=== PATIENT | female | born 1965 | race Caucasian/White ===

== ENCOUNTER 2017-02-25 11:59 | Inpatient (IN) | payer BC, MEDICARE ==
--- NOTE | 2017-02-25 12:51 | ED ---
Abdominal Pain HPI <German Haddad - Last Filed: 02/25/17 14:18> - General Source: patient Mode of arrival: ambulatory Limitations: no limitations - History of Present Illness MD Complaint: abdominal pain -: week(s) (2) Location: RUQ, epigastric Radiation: back Improves With: medication (Zofran) Worsens With: eating Associated Symptoms: nausea, vomiting, diarrhea, fever <Linda Dickson - Last Filed: 02/25/17 16:15> - General Chief Complaint: Abdominal Pain Stated Complaint: abdominal pain,nausea - History of Present Illness Initial Comments: 52-year-old female complains of epigastric and right upper quadrant abdominal pain for the last 2 weeks. Patient states it comes and goes and shoots through pressure to her back region as well. Patient was seen 2 weeks ago when she had some nausea vomiting in a fever and was told she had Jeep gastroenteritis. Patient states she's had nausea on and off and decreased appetite. Patient is not having any symptoms at the time of visit however she did have to take a Zofran earlier due to nausea. Patient only had water to drink today. Patient denies any recent fevers no change of bowels except for today did have some loose stools. Patient denies any increase in belching or flatulence. No abdominal surgical history status post section. No dysuria (Linda Dickson) - Related Data Home Medications Medication Instructions Recorded Confirmed Albuterol Sulfate [Proair Hfa] 2 puff INHALATION RT-Q4H PRN 02/25/17 02/25/17 Beclomethasone Dipropionate [Qvar 1 puff INHALATION RT-BID 02/25/17 02/25/17 80 mcg] Citalopram Hydrobromide [CeleXA] 40 mg PO DAILY 02/25/17 02/25/17 Gabapentin 600 mg PO TID 02/25/17 02/25/17 Insulin Aspart Protam & Aspart 25 unit SQ AC-SUPPER 02/25/17 02/25/17 [NovoLOG MIX 70-30 Flexpen] Insulin Aspart Protam & Aspart 35 unit SQ AC-BRKFST 02/25/17 02/25/17 [NovoLOG MIX 70-30 Flexpen] Lisinopril-Hctz 20-25 mg 1 tab PO DAILY 08/19/17 08/19/17 [Zestoretic 20-25] Metoprolol Tartrate [Lopressor] 100 mg PO BID-W/MEALS 02/25/17 02/25/17 Ranitidine HCl [Zantac] 150 mg PO BID 02/25/17 02/25/17 amLODIPine [Norvasc] 10 mg PO DAILY 02/25/17 02/25/17 Allergies Allergy/AdvReac Type Severity Reaction Status Date / Time Penicillins Allergy Rash/Hives Verified 02/25/17 12:35 Sulfa (Sulfonamide Allergy Anaphylaxis Verified 02/25/17 12:35 Antibiotics) MMR vaccine Allergy Rash/Hives Uncoded 02/25/17 12:07 Review of Systems ROS Other: All systems not noted in ROS Statement are negative. <German Haddad - Last Filed: 02/25/17 14:18> ROS Other: All systems not noted in ROS Statement are negative. Cardiovascular: Denies: chest pain, dyspnea on exertion, orthopnea, edema, syncope Gastrointestinal: Reports: abdominal pain, nausea, vomiting <Linda Dickson - Last Filed: 02/25/17 16:15> ROS Statement: Those systems with pertinent positive or pertinent negative responses have been documented in the HPI. Past Medical History Past Medical History: COPD, Diabetes Mellitus, Hypertension History of Any Multi-Drug Resistant Organisms: None Reported Past Surgical History: Section Additional Past Surgical History / Comment(s): left eye Past Psychological History: Anxiety Smoking Status: Never smoker Past Alcohol Use History: None Reported Past Drug Use History: None Reported <Linda Dickson - Last Filed: 02/25/17 16:15> General Exam Limitations: no limitations General appearance: alert, in no apparent distress, obese Eye exam: Present: normal appearance, PERRL, EOMI. Absent: scleral icterus, conjunctival injection, periorbital swelling ENT exam: Present: normal exam, mucous membranes moist Neck exam: Present: normal inspection. Absent: tenderness, meningismus, lymphadenopathy Respiratory exam: Present: normal lung sounds bilaterally. Absent: respiratory distress, wheezes, rales, rhonchi, stridor Cardiovascular Exam: Present: regular rate, normal rhythm, normal heart sounds. Absent: systolic murmur, diastolic murmur, rubs, gallop, clicks GI/Abdominal exam: Present: soft, tenderness (Right upper quadrant and epigastric region mild), normal bowel sounds. Absent: distended, guarding, rebound, rigid Back exam: Present: normal inspection Neurological exam: Present: alert, oriented X3, CN II-XII intact Psychiatric exam: Present: normal affect, normal mood Skin exam: Present: warm, dry, intact <Linda Dickson - Last Filed: 02/25/17 16:15> Course <German Haddad - Last Filed: 02/25/17 14:18> <Linda Dickson - Last Filed: 02/25/17 16:15> Vital Signs 02/25/17 02/25/17 02/25/17 12:00 13:06 14:00 Temperature 98.8 F Pulse Rate 87 72 73 Respiratory 16 18 16 Rate Blood Pressure 195/91 168/80 168/80 O2 Sat by Pulse 97 96 94 L Oximetry 02/25/17 02/25/17 14:57 16:00 Temperature 98.0 F Pulse Rate 67 65 Respiratory 18 18 Rate Blood Pressure 179/79 152/69 O2 Sat by Pulse 96 95 Oximetry - Reevaluation(s) Reevaluation #1: 02/25/17 14:18 I did personally do a [id number] examination the patient and did discuss the findings with her she does demonstrate evidence of acute pancreatitis. She denies any alcohol consumption any recent medications. Patient still has some nausea some of bowel pain. She will be admitted I did did discuss case with the hospitalist. (German Haddad) Medical Decision Making - Lab Data Result diagrams: 02/25/17 13:04 02/25/17 13:04 <German Haddad - Last Filed: 02/25/17 14:18> - Lab Data Result diagrams: 02/25/17 13:04 02/25/17 13:04 <Linda Dickson - Last Filed: 02/25/17 16:15> - Medical Decision Making After reviewing her labs along with Dr. Haddad patient has acute pancreatitis we' ll be admitting to Dr. MAGAÑA. Patient understands the plan and care and agrees with the clinic at this time. Patient will be kept nothing by mouth. (Linda Dickson) - Lab Data Lab Results 02/25/17 02/25/17 02/25/17 Range/Units 13:04 13:04 13:04 WBC 9.0 (3.8-10.6) k/uL RBC 4.32 (3.80-5.40) m/uL Hgb 12.8 (11.4-16.0) gm/dL Hct 37.7 (34.0-46.0) % MCV 87.3 (80.0-100.0) fL MCH 29.7 (25.0-35.0) pg MCHC 34.0 (31.0-37.0) g/dL RDW 13.6 (11.5-15.5) % Plt Count 277 (150-450) k/uL Neutrophils % 79 % Lymphocytes % 9 % Monocytes % 4 % Eosinophils % 6 % Basophils % 0 % Neutrophils # 7.1 (1.3-7.7) k/uL Lymphocytes # 0.8 L (1.0-4.8) k/uL Monocytes # 0.4 (0-1.0) k/uL Eosinophils # 0.6 (0-0.7) k/uL Basophils # 0.0 (0-0.2) k/uL Sodium 140 (137-145) mmol/L Potassium 4.2 (3.5-5.1) mmol/L Chloride 101 (98-107) mmol/L Carbon Dioxide 27 (22-30) mmol/L Anion Gap 12 mmol/L BUN 31 H (7-17) mg/dL Creatinine 1.71 H (0.52-1.04) mg/dL Est GFR (MDRD) Af Amer 38 (>60 ml/min/1.73 sqM) Est GFR (MDRD) Non-Af 31 (>60 ml/min/1.73 sqM) Glucose 212 H (74-99) mg/dL Calcium 9.4 (8.4-10.2) mg/dL Total Bilirubin 0.4 (0.2-1.3) mg/dL AST 13 L (14-36) U/L ALT 23 (9-52) U/L Alkaline Phosphatase 77 (38-126) U/L Total Creatine Kinase 32 (30-135) U/L CK-MB (CK-2) 0.6 (0.0-2.4) ng/mL CK-MB (CK-2) Rel Index 1.9 Total Protein 7.4 (6.3-8.2) g/dL Albumin 4.1 (3.5-5.0) g/dL Amylase 176 H (30-110) U/L Lipase 1219 H (23-300) U/L Urine Color Urine Appearance (Clear) Urine pH (5.0-8.0) Ur Specific [place] (1.001-1.035) Urine Protein (Negative) Urine Glucose (UA) (Negative) Urine Ketones (Negative) Urine Blood (Negative) Urine Nitrite (Negative) Urine Bilirubin (Negative) Urine Urobilinogen (<2.0) mg/dL Ur Leukocyte Esterase (Negative) Urine RBC (0-5) /hpf Urine WBC (0-5) /hpf Ur Squamous Epith Cells (0-4) /hpf Urine Mucus (None) /hpf 02/25/17 Range/Units 14:46 WBC (3.8-10.6) k/uL RBC (3.80-5.40) m/uL Hgb (11.4-16.0) gm/dL Hct (34.0-46.0) % MCV (80.0-100.0) fL MCH (25.0-35.0) pg MCHC (31.0-37.0) g/dL RDW (11.5-15.5) % Plt Count (150-450) k/uL Neutrophils % % Lymphocytes % % Monocytes % % Eosinophils % % Basophils % % Neutrophils # (1.3-7.7) k/uL Lymphocytes # (1.0-4.8) k/uL Monocytes # (0-1.0) k/uL Eosinophils # (0-0.7) k/uL Basophils # (0-0.2) k/uL Sodium (137-145) mmol/L Potassium (3.5-5.1) mmol/L Chloride (98-107) mmol/L Carbon Dioxide (22-30) mmol/L Anion Gap mmol/L BUN (7-17) mg/dL Creatinine (0.52-1.04) mg/dL Est GFR (MDRD) Af Amer (>60 ml/min/1.73 sqM) Est GFR (MDRD) Non-Af (>60 ml/min/1.73 sqM) Glucose (74-99) mg/dL Calcium (8.4-10.2) mg/dL Total Bilirubin (0.2-1.3) mg/dL AST (14-36) U/L ALT (9-52) U/L Alkaline Phosphatase (38-126) U/L Total Creatine Kinase (30-135) U/L CK-MB (CK-2) (0.0-2.4) ng/mL CK-MB (CK-2) Rel Index Total Protein (6.3-8.2) g/dL Albumin (3.5-5.0) g/dL Amylase (30-110) U/L Lipase (23-300) U/L Urine Color Yellow Urine Appearance Clear (Clear) Urine pH 6.5 (5.0-8.0) Ur Specific [place] 1.012 (1.001-1.035) Urine Protein 3+ H (Negative) Urine Glucose (UA) 2+ H (Negative) Urine Ketones Negative (Negative) Urine Blood Trace H (Negative) Urine Nitrite Negative (Negative) Urine Bilirubin Negative (Negative) Urine Urobilinogen <2.0 (<2.0) mg/dL Ur Leukocyte Esterase Negative (Negative) Urine RBC 1 (0-5) /hpf Urine WBC 1 (0-5) /hpf Ur Squamous Epith Cells 1 (0-4) /hpf Urine Mucus Rare H (None) /hpf Disposition Decision Time: 14:15 <German Haddad - Last Filed: 02/25/17 14:18> <Linda Dickson - Last Filed: 02/25/17 16:15> Clinical Impression: Acute pancreatitis, Acute renal failure Disposition: ADMITTED IP TO THIS HOSP Condition: Stable Referrals: Susan Galarza MD [Primary Care Provider] - 1-2 days
[2017-02-25 13:20] LABS: Basophils % (A) 0 %; CH 30.4; Eosinophils # (A) 0.6 k/uL (0-0.7); Eosinophils % (A) 6 %; HCT 37.7 % (34.0-46.0); HDW 2.58; HGB 12.8 gm/dL (11.4-16.0); Luc # (Auto) 0.08; Luc % (Auto) 1; Lymphocytes # (A) 0.8 k/uL (1.0-4.8); Lymphocytes % (A) 9 %; MCH 29.7 pg (25.0-35.0); MCV 87.3 fL (80.0-100.0); Monocytes # (A) 0.4 k/uL (0-1.0); Monocytes % (A) 4 %; Neutrophils # (A) 7.1 k/uL (1.3-7.7); Neutrophils % (A) 79 %; RBC 4.32 m/uL (3.80-5.40); RDW 13.6 % (11.5-15.5); WBC (Perox) 9.23
[2017-02-25 13:38] LABS: Calcium 9.4 mg/dL (8.4-10.2); Potassium 4.2 mmol/L (3.5-5.1); Total Bilirubin 0.4 mg/dL (0.2-1.3); Total Protein 7.4 g/dL (6.3-8.2)
[2017-02-25 13:52] LABS: Creatine Kinase MB 0.6 ng/mL (0.0-2.4)
--- NOTE | 2017-02-25 13:58 | US ---
EXAMINATION TYPE: US abdomen limited DATE OF EXAM: 02/25/2017 COMPARISON: NONE CLINICAL HISTORY: Pain. RUQ pain and nausea EXAM MEASUREMENTS: Liver Length: 17.9 cm Gallbladder Wall: 0.20 cm CBD: 0.78 cm Right Kidney: 11.5 x 4.7 x 4.8 cm Pancreas: Tail obscured by overlying bowel gas Liver: wnl Gallbladder: wnl CBD: upper limits Right Kidney: Two hypoechoic areas visualized mid pole 1 = 1.6 x 1.9 x 1.8cm 2 = 1.9 x 2.3 x 1.6 cm l Two hypoechoic areas right kidney mid pole. CBD measuring upper limits. IMPRESSION: Common bile duct is large but the intrahepatic bile ducts are not dilated. No gallstones. Right renal cortical cysts.
--- NOTE | 2017-02-25 13:59 | US ---
EXAMINATION TYPE: US duplex aorta DATE OF EXAM: 02/25/2017 COMPARISON: NONE CLINICAL HISTORY: Pain. RUQ pain EXAM MEASUREMENTS: Abdominal Aorta: Proximal: 1.7 x 2.0 x 2.4 cm Mid: 1.8 x 1.8 x 1.5 cm Distal: 1.6 x 1.7 x 1.3 cm Bifurcation: 1.6cm 1.4 cm No evidence of AAA noted IMPRESSION: Negative exam. No evidence of abdominal aortic aneurysm.
[2017-02-25] MEDS: SODIUM CHLORIDE 0.9% 1,000 ML IV SCH ×2 (14:44→23:54)
[2017-02-25 15:08] LABS: Appearance,Urine Clear (Clear); Bilirubin,Urine Negative (Negative); Glucose,Urine (UA) 2+ (Negative); Ketones,Urine Negative (Negative); Leukocyte Esterase,Urine Negative (Negative); Mucus,Urine Rare /hpf; Nitrite,Urine Negative (Negative); PH, Urine 6.5 (5.0-8.0); Particle Count 2810; Protein,Urine 3+ (Negative); RBC,Urine 1 /hpf (0-5); Specific Gravity,Urine 1.012 (1.001-1.035); Squamous Epithelial Cell,Urine 1 /hpf (0-4); UA Billing (MACRO vs. MICRO) MICRO; Urobilinogen,Urine <2.0 mg/dL (<2.0); WBC,Urine 1 /hpf (0-5)
[2017-02-25] MEDS ORDERED: NALOXONE 0.4 MG/ML 1 ML VIAL IV PRN (15:55)
[2017-02-25] MEDS ORDERED: ONDANSETRON 4 MG/2 ML VIAL IVP PRN (15:55)
[2017-02-25] MEDS ORDERED: HYDROmorphone 1 MG/ML 1 ML SYRINGE IVP STA (16:02)
[2017-02-25 17:14] LABS: Glucose,Whole Blood 92 mg/dL (75-99)
[2017-02-25] MEDS: INSULIN LISPRO (humaLOG) 300 UNIT/3 ML VIAL SQ SCH ×2 (17:45→21:28)
[2017-02-25] MEDS ORDERED: ALPRAZolam 0.5 MG TAB PO PRN (18:45)
[2017-02-25] MEDS: ALBUTEROL NEBULIZED 2.5 MG/3 ML INHALATION PRN (20:51)
[2017-02-25] MEDS: BUDESONIDE 0.5 MG/2 ML NEBU INHALATION SCH (20:51)
[2017-02-25 21:23] LABS: Glucose,Whole Blood 95 mg/dL (75-99)
[2017-02-25] MEDS: GABAPENTIN 300 MG CAP PO SCH (21:32)
[2017-02-25] MEDS: HYDROmorphone 1 MG/ML 1 ML SYRINGE IV PRN (21:33)
[2017-02-26 02:16] LABS: Glucose,Whole Blood 109 mg/dL (75-99)
[2017-02-26] MEDS: HYDROmorphone 1 MG/ML 1 ML SYRINGE IV PRN ×3 (02:17→20:08)
[2017-02-26] MEDS: SODIUM CHLORIDE 0.9% 1,000 ML IV SCH ×2 (06:16→17:13)
[2017-02-26 07:42] LABS: Glucose,Whole Blood 107 mg/dL (75-99)
[2017-02-26] MEDS: GABAPENTIN 300 MG CAP PO SCH ×3 (07:52→22:08)
[2017-02-26] MEDS: METOPROLOL TARTRATE 50 MG TAB PO SCH ×2 (07:52→17:12)
[2017-02-26] MEDS: amLODIPine 10 MG TAB PO SCH (07:53)
[2017-02-26] MEDS: CITALOPRAM HYDROBROMIDE 20 MG TAB PO SCH (07:53)
[2017-02-26] MEDS: INSULN ASP PRT/INSULIN ASPART 100 UNIT/ML 10 ML VIAL SQ SCH (07:54)
[2017-02-26] MEDS: INSULIN LISPRO (humaLOG) 300 UNIT/3 ML VIAL SQ SCH ×4 (07:54→22:07)
[2017-02-26] MEDS: ALBUTEROL NEBULIZED 2.5 MG/3 ML INHALATION PRN ×2 (08:20→19:43)
[2017-02-26] MEDS: BUDESONIDE 0.5 MG/2 ML NEBU INHALATION SCH ×2 (08:20→19:43)
[2017-02-26 08:47] LABS: Calcium 8.9 mg/dL (8.4-10.2); Potassium 4.6 mmol/L (3.5-5.1); Total Bilirubin 0.3 mg/dL (0.2-1.3); Total Protein 6.9 g/dL (6.3-8.2)
[2017-02-26 11:05] LABS: Hemoglobin A1C 7.4 % (4.2-6.1)
[2017-02-26 12:36] LABS: Glucose,Whole Blood 125 mg/dL (75-99)
[2017-02-26 17:12] LABS: Glucose,Whole Blood 147 mg/dL (75-99)
[2017-02-26] MEDS ORDERED: INSULN ASP PRT/INSULIN ASPART 100 UNIT/ML 10 ML VIAL SQ SCH (17:30)
[2017-02-26 21:28] LABS: Glucose,Whole Blood 131 mg/dL (75-99)
--- NOTE | 2017-02-26 21:58 | P.HPIM ---
History of Present Illness H&P Date: 02/26/17 Chief Complaint: Abdominal pain 52-year-old female with a past medical history of hypertension and diabetes mellitus type 2 admitted to hospital with complains of epigastric and right upper quadrant abdominal pain for the last 2 weeks. Patient states it comes and goes and shoots through pressure to her back region as well. Patient was seen 2 weeks ago when she had some nausea vomiting in a fever and was told she had acute gastroenteritis. Patient is having worsening symptoms. Patient only had water to drink today. Patient denied any fever or chills. Patient denies any increase in belching or flatulence. No abdominal surgical history status post section. Patient denied any hematuria or dysuria. Patient had elevated lipase level at 1219 and elevated amylase level. ABDOMEN showed no redness of AAA. Right upper quadrant ultrasound showed dilated common bile duct with no evidence of dilation and intrahepatic bile ducts. No gallstones noted. Patient denied any history of alcohol abuse. Liver enzymes are not elevated. BUN 32 and a creatinine 1.81 Review of Systems CONSTITUTIONAL: No fever, no malaise, no fatigue. HEENT: No recent visual problems or hearing problems. Denied any sore throat. CARDIOVASCULAR: No chest pain, orthopnea, PND, no palpitations, no syncope. PULMONARY: , no hemoptysis. GASTROINTESTINAL: Patient does have nausea. No episodes of vomiting. One episode of diarrhea and right upper quadrant abdominal pain NEUROLOGICAL: No headaches, no weakness, no numbness. HEMATOLOGICAL: Denies any bleeding or petechiae. GENITOURINARY: Denies any burning micturition, frequency, or urgency. MUSCULOSKELETAL/RHEUMATOLOGICAL: Denies any joint pain, swelling, or any muscle pain. ENDOCRINE: Denies any polyuria or polydipsia. The rest of the 14-point review of systems is negative. Past Medical History Past Medical History: Asthma, Diabetes Mellitus, Hypertension Additional Past Medical History / Comment(s): diabetic retinopathy History of Any Multi-Drug Resistant Organisms: None Reported Past Surgical History: Section, Uterine Ablation Additional Past Surgical History / Comment(s): left eye artificial lens Past Psychological History: Anxiety Smoking Status: Never smoker Past Alcohol Use History: None Reported Past Drug Use History: None Reported Medications and Allergies Home Medications Medication Instructions Recorded Confirmed Type Albuterol Sulfate [Proair Hfa] 2 puff INHALATION RT-Q4H PRN 02/25/17 02/25/17 History Beclomethasone Dipropionate [Qvar 1 puff INHALATION RT-BID 02/25/17 02/25/17 History 80 mcg] Citalopram Hydrobromide [CeleXA] 40 mg PO DAILY 02/25/17 02/25/17 History Gabapentin 600 mg PO TID 02/25/17 02/25/17 History Insulin Aspart Protam & Aspart 25 unit SQ AC-SUPPER 02/25/17 02/25/17 History [NovoLOG MIX 70-30 Flexpen] Insulin Aspart Protam & Aspart 35 unit SQ AC-BRKFST 02/25/17 02/25/17 History [NovoLOG MIX 70-30 Flexpen] Lisinopril-Hctz 20-25 mg 1 tab PO DAILY 02/25/17 02/25/17 History [Zestoretic 20-25] Metoprolol Tartrate [Lopressor] 100 mg PO BID-W/MEALS 02/25/17 02/25/17 History Ranitidine HCl [Zantac] 150 mg PO BID 02/25/17 02/25/17 History amLODIPine [Norvasc] 10 mg PO DAILY 02/25/17 02/25/17 History Allergies Allergy/AdvReac Type Severity Reaction Status Date / Time Penicillins Allergy Rash/Hives Verified 02/25/17 12:35 Sulfa (Sulfonamide Allergy Anaphylaxis Verified 02/25/17 12:35 Antibiotics) MMR vaccine Allergy Rash/Hives Uncoded 02/25/17 12:07 Physical Exam Vitals: Vital Signs Temp Pulse Pulse Resp BP BP Pulse Ox 02/26/17 08:30 76 02/26/17 08:20 80 02/26/17 07:00 98.1 F 86 16 186/86 92 L 02/25/17 23:00 97.4 F L 71 16 132/75 93 L 02/25/17 21:01 68 02/25/17 20:54 68 02/25/17 16:00 98.0 F 65 18 152/69 95 02/25/17 14:57 67 18 179/79 96 02/25/17 14:00 73 16 168/80 94 L Intake and Output 02/25/17 02/26/17 02/26/17 22:59 06:59 14:59 Other: # Voids 1 2 PHYSICAL EXAMINATION: Patient is lying in the bed comfortably, no acute distress, awake alert and oriented.. Morbidly obese HEENT: Normocephalic. Neck is supple. Pupils reactive. Nostrils clear. Oral cavity is moist. Ears reveal no drainage. Neck reveals no JVD, carotid bruits, or thyromegaly. CHEST EXAMINATION: Trachea is central. Symmetrical expansion. Lung li clear to auscultation and percussion. CARDIAC: Normal S1, S2 with no gallops. No murmurs ABDOMEN: Soft. Bowel sounds normal. No organomegaly. No abdominal bruits. Patient does have a right upper quadrant and epigastric mild tenderness. Extremities reveal no edema. No clubbing or cyanosis Neurologically awake, alert, oriented x3 with well-coordinated movements. Skin: no rash or skin lesions Musculoskeletal: no joint swelling or deformity. Results CBC & Chem 7: 02/25/17 13:04 02/26/17 07:30 Labs: Abnormal Lab Results - Last 24 Hours (Table) 02/25/17 02/25/17 02/26/17 Range/Units 13:04 14:46 02:13 BUN (7-17) mg/dL Creatinine (0.52-1.04) mg/dL Glucose (74-99) mg/dL POC Glucose (mg/dL) 109 H (75-99) mg/dL Hemoglobin A1c 7.4 H (4.2-6.1) % AST (14-36) U/L Urine Protein 3+ H (Negative) Urine Glucose (UA) 2+ H (Negative) Urine Blood Trace H (Negative) Urine Mucus Rare H (None) /hpf 02/26/17 02/26/17 02/26/17 Range/Units 07:30 07:38 12:32 BUN 32 H (7-17) mg/dL Creatinine 1.81 H (0.52-1.04) mg/dL Glucose 108 H (74-99) mg/dL POC Glucose (mg/dL) 107 H 125 H (75-99) mg/dL Hemoglobin A1c (4.2-6.1) % AST 13 L (14-36) U/L Urine Protein (Negative) Urine Glucose (UA) (Negative) Urine Blood (Negative) Urine Mucus (None) /hpf Thrombosis Risk Factor Assmnt - DVT/VTE Prophylaxis DVT/VTE Prophylaxis: Pharmacologic Prophylaxis ordered - Choose All That Apply Each Factor Represents 1 point: Age 41-60 years, Obesity (BMI >25) Thrombosis Risk Factor Assessment Total Risk Factor Score: 2 Thrombosis Risk Factor Assessment Level: Low Risk Assessment and Plan Plan: #1 abdominal pain secondary to acute pancreatitis. Etiology unknown #2 dilated bile duct with no evidence of stones #3 diabetes mellitus with his HbA1c of 7.4 #4 acute kidney injury most likely prerenal #5 hypertension #6 asthma #7 morbid obesity with BMI 43.4 DVT prophylaxis Plan: Patient will be continued on IV hydration and GI was consulted for dilated common bile duct. Continue with the pain management and nothing by mouth. Continue the home medications and insulin dosing. We will follow closely and further recommendations based on the clinical course
--- NOTE | 2017-02-26 23:55 | P.CONS ---
History of Present Illness - Reason for Consult Consult date: 02/26/17 - History of Present Illness The patient is a 52-year-old female with a past medical history of hypertension and diabetes mellitus type 2 was admitted to hospital through the emergency room with complaints of epigastric and right upper quadrant abdominal pain of 2 weeks duration. The pain apparently was intermittent at times radiating to her back. For several days prior to admission she was having fevers and nausea then the day of her presentation to the emergency room she was having worsening nausea and vomiting. The patient had elevated lipase level at 1219 and elevated amylase level at 176. Liver enzymes were not elevated. Right upper quadrant ultrasound showed dilated common bile duct with no evidence of dilation and intrahepatic bile ducts. No gallstones noted. No history of a cold consumption or other possible underlying causes for pancreatitis. The patient had significant improvement since admission. Review of Systems 14 point review of system is, otherwise, negative except as detailed in the present illness above. Past Medical History Past Medical History: Asthma, Diabetes Mellitus, Hypertension Additional Past Medical History / Comment(s): diabetic retinopathy History of Any Multi-Drug Resistant Organisms: None Reported Past Surgical History: Section, Uterine Ablation Additional Past Surgical History / Comment(s): left eye artificial lens Past Psychological History: Anxiety Smoking Status: Never smoker Past Alcohol Use History: None Reported Past Drug Use History: None Reported Medications and Allergies Home Medications Medication Instructions Recorded Confirmed Type Albuterol Sulfate [Proair Hfa] 2 puff INHALATION RT-Q4H PRN 02/25/17 02/25/17 History Beclomethasone Dipropionate [Qvar 1 puff INHALATION RT-BID 02/25/17 02/25/17 History 80 mcg] Citalopram Hydrobromide [CeleXA] 40 mg PO DAILY 02/25/17 02/25/17 History Gabapentin 600 mg PO TID 02/25/17 02/25/17 History Insulin Aspart Protam & Aspart 25 unit SQ AC-SUPPER 02/25/17 02/25/17 History [NovoLOG MIX 70-30 Flexpen] Insulin Aspart Protam & Aspart 35 unit SQ AC-BRKFST 02/25/17 02/25/17 History [NovoLOG MIX 70-30 Flexpen] Lisinopril-Hctz 20-25 mg 1 tab PO DAILY 02/25/17 02/25/17 History [Zestoretic 20-25] Metoprolol Tartrate [Lopressor] 100 mg PO BID-W/MEALS 02/25/17 02/25/17 History Ranitidine HCl [Zantac] 150 mg PO BID 02/25/17 02/25/17 History amLODIPine [Norvasc] 10 mg PO DAILY 02/25/17 02/25/17 History Allergies Allergy/AdvReac Type Severity Reaction Status Date / Time Penicillins Allergy Rash/Hives Verified 02/25/17 12:35 Sulfa (Sulfonamide Allergy Anaphylaxis Verified 02/25/17 12:35 Antibiotics) MMR vaccine Allergy Rash/Hives Uncoded 02/25/17 12:07 Physical Exam Vitals: Vital Signs Temp Pulse Pulse Resp BP Pulse Ox 02/26/17 19:59 84 02/26/17 19:40 84 02/26/17 15:48 16 02/26/17 14:46 96.5 F L 76 16 160/73 91 L 02/26/17 08:30 76 02/26/17 08:20 80 02/26/17 07:00 98.1 F 86 16 186/86 92 L 02/25/17 23:00 97.4 F L 71 16 132/75 93 L Intake and Output 02/26/17 02/26/17 02/26/17 06:59 14:59 22:59 Other: # Voids 2 3 0 # Bowel Movements 0 General appearance: The patient is alert, oriented, in no acute distress. HET: Head is normocephalic and atraumatic. Pupils are equal and reactive. Oropharynx is clear without lesions. Neck: Supple without lymphadenopathy. Trachea midline. Heart: S1 S2. Regular rate and rhythm. Lungs: No crackles or wheezes are heard. Abdomen: Soft, nontender, nondistended with bowel sounds. No peritoneal signs. No palpable organomegaly or masses. Extremities: Normal skin color and turgor. No cyanosis, rash, ulceration, clubbing, or edema. Radial and pedal pulses are 2/4 bilaterally. Neurological: No focal deficits. Strength and sensation are grossly intact. Results CBC & Chem 7: 02/25/17 13:04 02/26/17 07:30 Labs: Abnormal Lab Results - Last 24 Hours (Table) 02/25/17 02/26/17 02/26/17 Range/Units 13:04 02:13 07:30 BUN 32 H (7-17) mg/dL Creatinine 1.81 H (0.52-1.04) mg/dL Glucose 108 H (74-99) mg/dL POC Glucose (mg/dL) 109 H (75-99) mg/dL Hemoglobin A1c 7.4 H (4.2-6.1) % AST 13 L (14-36) U/L 02/26/17 02/26/17 02/26/17 Range/Units 07:38 12:32 17:04 BUN (7-17) mg/dL Creatinine (0.52-1.04) mg/dL Glucose (74-99) mg/dL POC Glucose (mg/dL) 107 H 125 H 147 H (75-99) mg/dL Hemoglobin A1c (4.2-6.1) % AST (14-36) U/L 02/26/17 Range/Units 20:39 BUN (7-17) mg/dL Creatinine (0.52-1.04) mg/dL Glucose (74-99) mg/dL POC Glucose (mg/dL) 131 H (75-99) mg/dL Hemoglobin A1c (4.2-6.1) % AST (14-36) U/L Assessment and Plan Plan: 52-year-old female with clinical picture of acute pancreatitis. With the dilated common bile duct and history of intermittent pain for the prior 2 weeks , it is possible that she has passed a gallstone. If the patient continues to improve, I would not recommend additional testing at this time for this, presumably first episode of pancreatitis that is probably gallstone related. However, should her symptoms not improve or she has a setback, then I will consider additional workup including ERCP in the future. I will discuss with you and follow with you with interest.
[2017-02-27] MEDS: SODIUM CHLORIDE 0.9% 1,000 ML IV SCH ×3 (00:54→16:16)
[2017-02-27] MEDS: HYDROmorphone 1 MG/ML 1 ML SYRINGE IV PRN (04:58)
[2017-02-27] MEDS: ALBUTEROL NEBULIZED 2.5 MG/3 ML INHALATION PRN (07:11)
[2017-02-27] MEDS: BUDESONIDE 0.5 MG/2 ML NEBU INHALATION SCH (07:11)
[2017-02-27 07:30] LABS: Glucose,Whole Blood 95 mg/dL (75-99)
[2017-02-27] MEDS: INSULIN LISPRO (humaLOG) 300 UNIT/3 ML VIAL SQ SCH ×2 (07:52→12:28)
[2017-02-27] MEDS: INSULN ASP PRT/INSULIN ASPART 100 UNIT/ML 10 ML VIAL SQ SCH (08:11)
[2017-02-27] MEDS: METOPROLOL TARTRATE 50 MG TAB PO SCH (08:12)
[2017-02-27] MEDS: GABAPENTIN 300 MG CAP PO SCH ×2 (08:12→16:16)
[2017-02-27 08:13] LABS: Basophils % (A) 1 %; CHCM 33.1; Eosinophils # (A) 0.5 k/uL (0-0.7); Eosinophils % (A) 6 %; HCT 36.3 % (34.0-46.0); HDW 2.56; HGB 11.6 gm/dL (11.4-16.0); Luc # (Auto) 0.15; Luc % (Auto) 2; Lymphocytes % (A) 23 %; MCH 29.2 pg (25.0-35.0); MCHC 32.1 g/dL (31.0-37.0); MCV 91.1 fL (80.0-100.0); Mean Platelet Volume 6.9; Monocytes # (A) 0.4 k/uL (0-1.0); Monocytes % (A) 5 %; Neutrophils # (A) 5.5 k/uL (1.3-7.7); Neutrophils % (A) 64 %; RBC 3.98 m/uL (3.80-5.40); RDW 13.5 % (11.5-15.5); WBC 8.7 k/uL (3.8-10.6); WBC (Perox) 9.02
[2017-02-27] MEDS: CITALOPRAM HYDROBROMIDE 20 MG TAB PO SCH (08:13)
[2017-02-27] MEDS: amLODIPine 10 MG TAB PO SCH (08:13)
[2017-02-27 08:26] LABS: Calcium 8.8 mg/dL (8.4-10.2); Potassium 4.3 mmol/L (3.5-5.1)
[2017-02-27 12:32] LABS: Glucose,Whole Blood 129 mg/dL (75-99)
[2017-02-27 15:16] VITALS: BP 159/79; PULSE 79; RESP 16; TEMP 97.5
--- NOTE | 2017-02-28 00:27 | P.DS ---
Providers Date of admission: 02/25/17 14:21 Expected date of discharge: 02/27/17 Attending physician: Thony Elizondo MD Consults: 02/25/17 15:57 Consult Physician Urgent Consulting Provider: Ward Nazario Consult Reason/Comments: acute pancreatitis Do you want consulting provider notified?: Yes Primary care physician: Susan Galarza Hospital Course: Discharge diagnosis #1 abdominal pain secondary to acute pancreatitis. Possible gallstone. Abdominal pain resolved now #2 dilated bile duct with no evidence of stones. Possible passed stone #3 diabetes mellitus with his HbA1c of 7.4 #4 acute kidney injury most likely prerenal #5 hypertension #6 asthma #7 morbid obesity with BMI 43.4 DVT prophylaxis 52-year-old female with a past medical history of hypertension and diabetes mellitus type 2 admitted to hospital with complains of epigastric and right upper quadrant abdominal pain for the last 2 weeks. Patient states it comes and goes and shoots through pressure to her back region as well. Patient was seen 2 weeks ago when she had some nausea vomiting in a fever and was told she had acute gastroenteritis. Patient is having worsening symptoms. Patient only had water to drink today. Patient denied any fever or chills. Patient denies any increase in belching or flatulence. No abdominal surgical history status post section. Patient denied any hematuria or dysuria. Patient had elevated lipase level at 1219 and elevated amylase level. ABDOMEN showed no redness of AAA. Right upper quadrant ultrasound showed dilated common bile duct with no evidence of dilation and intrahepatic bile ducts. No gallstones noted. Patient denied any history of alcohol abuse. Liver enzymes are not elevated. BUN 32 and a creatinine 1.81 Patient was continued on IV hydration and GI was consulted for dilated common bile duct. Dilated gallbladder duct could be due to passed a stone. No intervention recommended at this time. Continued with the pain management and nothing by mouth. Continue the home medications and insulin dosing. Patient's pain is much improved now and tolerating her diet. Patient was advised to follow with GI clinic for further evaluation. Patient is stable to be discharged home. PHYSICAL EXAMINATION: Patient is lying in the bed comfortably, no acute distress, awake alert and oriented.. HEENT: Normocephalic. Neck is supple. Pupils reactive. Nostrils clear. Oral cavity is moist. Ears reveal no drainage. Neck reveals no JVD, carotid bruits, or thyromegaly. CHEST EXAMINATION: Trachea is central. Symmetrical expansion. Lung li clear to auscultation and percussion. CARDIAC: Normal S1, S2 with no gallops. No murmurs ABDOMEN: Soft. Bowel sounds normal. No organomegaly. No abdominal bruits. Extremities reveal no edema. No clubbing or cyanosis Neurologically awake, alert, oriented x3 with well-coordinated movements. Skin: no rash or skin lesions Musculoskeletal: no joint swelling or deformity. Patient Condition at Discharge: Stable Plan - Discharge Summary New Discharge Prescriptions: Continue Metoprolol Tartrate [Lopressor] 100 mg PO BID-W/MEALS Insulin Aspart Protam & Aspart [NovoLOG MIX 70-30 Flexpen] 35 unit SQ AC- BRKFST Beclomethasone Dipropionate [Qvar 80 mcg] 1 puff INHALATION RT-BID amLODIPine [Norvasc] 10 mg PO DAILY Ranitidine HCl [Zantac] 150 mg PO BID Lisinopril-Hctz 20-25 mg [Zestoretic 20-25] 1 tab PO DAILY Gabapentin 600 mg PO TID Citalopram Hydrobromide [CeleXA] 40 mg PO DAILY Albuterol Sulfate [Proair Hfa] 2 puff INHALATION RT-Q4H PRN PRN Reason: Shortness Of Breath Insulin Aspart Protam & Aspart [NovoLOG MIX 70-30 Flexpen] 25 unit SQ AC- SUPPER Discharge Medication List Albuterol Sulfate [Proair Hfa] 2 puff INHALATION RT-Q4H PRN 02/25/17 [History] Beclomethasone Dipropionate [Qvar 80 mcg] 1 puff INHALATION RT-BID 02/25/17 [ History] Citalopram Hydrobromide [CeleXA] 40 mg PO DAILY 02/25/17 [History] Gabapentin 600 mg PO TID 02/25/17 [History] Insulin Aspart Protam & Aspart [NovoLOG MIX 70-30 Flexpen] 25 unit SQ AC-SUPPER 02/25/17 [History] Insulin Aspart Protam & Aspart [NovoLOG MIX 70-30 Flexpen] 35 unit SQ AC-BRKFST 02/25/17 [History] Lisinopril-Hctz 20-25 mg [Zestoretic 20-25] 1 tab PO DAILY 02/25/17 [History] Metoprolol Tartrate [Lopressor] 100 mg PO BID-W/MEALS 02/25/17 [History] Ranitidine HCl [Zantac] 150 mg PO BID 02/25/17 [History] amLODIPine [Norvasc] 10 mg PO DAILY 02/25/17 [History] Follow up Appointment(s)/Referral(s): Ward Nazario MD [STAFF PHYSICIAN] - 03/14/17 5:15 pm Susan Galarza MD [Primary Care Provider] - 1-2 days (Office would like pt to call office tomorrow morning for appointment time.) Patient Instructions/Handouts: Pancreatitis (DC) Discharge Disposition: HOME SELF-CARE
== END 2017-02-27 16:27 | disposition home or self-care (01) | DRG 440 ==
LOC: EC 11:59 → SUPCPDRO 11:59 → 4MS4W 14:21
PROVIDERS: ADMIT Internal Medicine; ATTEND Internal Medicine
DX: K85.90 Acute pancreatitis without necrosis or infection, unspecified (principal); E66.01 Morbid (severe) obesity due to excess calories; E11.319 Type 2 diabetes mellitus with unspecified diabetic retinopathy without macular edema; I10 Essential (primary) hypertension; J44.9 Chronic obstructive pulmonary disease, unspecified; F41.9 Anxiety disorder, unspecified; Z79.51 Long term (current) use of inhaled steroids; Z79.4 Long term (current) use of insulin; Z79.899 Other long term (current) drug therapy; Z88.0 Allergy status to penicillin; Z88.2 Allergy status to sulfonamides; Z88.7 Allergy status to serum and vaccine
CPT/HCPCS: 36415; 76705; 80048; 80053; 81001; 82150; 82550; 82553; 83036; 83690; 85025; 93005; 93979; 94640; 96361; 96374; 99285

== ENCOUNTER 2017-03-27 13:36 | Emergency (ER) | payer BC, MEDICARE ==
[2017-03-27 13:50] VITALS: TEMP 98.8
[2017-03-27] MEDS ORDERED: HYDROcodone/APAP 5-325MG 1 EACH TAB PO STA (13:52)
--- NOTE | 2017-03-27 14:20 | ED ---
Lower Extremity Injury HPI - General Chief Complaint: Extremity Injury, Lower Stated Complaint: R foot injury Time Seen by Provider: 03/27/17 13:45 Source: patient Mode of arrival: wheelchair Limitations: no limitations - History of Present Illness Initial Comments: 52-year-old female patient presented to emergency department today for evaluation of right foot, ankle, and lower leg pain. She states that asked me 45 minutes ago she was coming down the stairs with an armload of sheets. She states that she missed the last few steps and fell landing on her knees. She states that she did hear a loud "crack" and felt a pop in her ankle. She states now she is having right foot, ankle, and lower leg pain. She states that her ankle is swollen. She states that her foot does feel numb. She states she is able to move her toes however movement of her ankle causes severe pain. She denies hitting her head or losing consciousness during the fall. She denies any other injuries. She denies any previous injury to the right lower leg or ankle. Patient denies any headache, neck pain, back pain, chest pain, shortness of breath, dizziness, weakness, abdominal pain, nausea, vomiting , or difficulties with bowel movements or urination. - Related Data Home Medications Medication Instructions Recorded Confirmed Albuterol Sulfate [Proair Hfa] 2 puff INHALATION RT-Q4H PRN 02/25/17 03/27/17 Beclomethasone Dipropionate [Qvar 1 puff INHALATION RT-BID 02/25/17 03/27/17 80 mcg] Citalopram Hydrobromide [CeleXA] 40 mg PO DAILY 02/25/17 03/27/17 Gabapentin 600 mg PO TID 02/25/17 03/27/17 Insulin Aspart Protam & Aspart 25 unit SQ AC-SUPPER 02/25/17 03/27/17 [NovoLOG MIX 70-30 Flexpen] Insulin Aspart Protam & Aspart 35 unit SQ AC-BRKFST 02/25/17 03/27/17 [NovoLOG MIX 70-30 Flexpen] Lisinopril-Hctz 20-25 mg 1 tab PO DAILY 02/25/17 03/27/17 [Zestoretic 20-25] Metoprolol Tartrate [Lopressor] 100 mg PO BID-W/MEALS 02/25/17 03/27/17 Ranitidine HCl [Zantac] 150 mg PO BID 02/25/17 03/27/17 amLODIPine [Norvasc] 10 mg PO DAILY 02/25/17 03/27/17 Previous Rx's Medication Instructions Recorded Hydrocodone/Acetaminophen [[place] 1 tab PO Q6HR PRN #20 tab 03/27/17 5-325] Allergies Allergy/AdvReac Type Severity Reaction Status Date / Time Penicillins Allergy Rash/Hives Verified 03/27/17 13:50 Sulfa (Sulfonamide Allergy Anaphylaxis Verified 03/27/17 13:50 Antibiotics) MMR vaccine Allergy Rash/Hives Uncoded 03/27/17 13:50 Review of Systems ROS Statement: Those systems with pertinent positive or pertinent negative responses have been documented in the HPI. ROS Other: All systems not noted in ROS Statement are negative. Past Medical History Past Medical History: Asthma, Diabetes Mellitus, Hypertension Additional Past Medical History / Comment(s): diabetic retinopathy History of Any Multi-Drug Resistant Organisms: None Reported Past Surgical History: Section, Uterine Ablation Additional Past Surgical History / Comment(s): left eye artificial lens Past Psychological History: Anxiety Smoking Status: Never smoker Past Alcohol Use History: None Reported Past Drug Use History: None Reported General Exam Limitations: no limitations General appearance: alert, in no apparent distress Head exam: Present: atraumatic, normocephalic, normal inspection Eye exam: Present: normal appearance, PERRL, EOMI. Absent: scleral icterus, conjunctival injection, periorbital swelling Neck exam: Present: normal inspection, full ROM, other (Nontender, no step-off, no deformity to firm midline palpation of the posterior cervical spine. Full range of motion without pain or limitation.). Absent: tenderness, meningismus, lymphadenopathy Respiratory exam: Present: normal lung sounds bilaterally. Absent: respiratory distress, wheezes, rales, rhonchi, stridor Cardiovascular Exam: Present: regular rate, normal rhythm, normal heart sounds. Absent: systolic murmur, diastolic murmur, rubs, gallop, clicks GI/Abdominal exam: Present: soft, normal bowel sounds. Absent: distended, tenderness, guarding, rebound, rigid Extremities exam: Present: normal capillary refill, other (Right ankle swelling. Distal tibial tenderness, right lateral malleolus tenderness, and fifth metatarsal tenderness. Skin is pink, warm, and dry. Cap refill less than 3 seconds.). Absent: normal inspection, full ROM (Decreased range of motion to the right ankle due to), tenderness, pedal edema, joint swelling, calf tenderness Back exam: Present: normal inspection, other (Nontender, no step-off, no deformity to firm midline palpation of the thoracic and lumbar vertebrae. Full range of motion without pain or limitation.). Absent: tenderness, vertebral tenderness Neurological exam: Present: alert, oriented X3, CN II-XII intact Psychiatric exam: Present: normal affect, normal mood Skin exam: Present: warm, dry, intact, normal color. Absent: rash Course Vital Signs 03/27/17 03/27/17 13:48 14:51 Temperature 98.8 F Pulse Rate 88 70 Respiratory 16 18 Rate Blood Pressure 213/89 187/83 O2 Sat by Pulse 97 Oximetry Procedures - Orthopedic Splinting/Casting Injury #1 Side: right Lower Extremity Injury Location: ankle Lower Extremity Immobilizer: stirrup splint (Sugar tong CL) Additional Comments: Neurovascular status intact after application of the splint. Skin is pink, warm , and dry. Cap refills less than 3 seconds. Patient denies any numbness or tingling. Medical Decision Making - Medical Decision Making 52-year-old female patient presented to emergency department today for evaluation of right ankle and foot pain after falling down the last few steps of a staircase. X-ray of the right ankle does show an oblique nondisplaced fracture of the lateral malleolus. X-rays of the right tib-fib and foot were otherwise unremarkable. Patient was placed in a sugar tong ankle OCL. She was given pain medication. Instructed to rest, ice, and elevate the extremity. She is instructed [facility] for a [facility] up appointment. She was given a copy of her x-ray to take with her. She is instructed to follow-up with her primary care physician in one to 2 days for any other concerns. She is instructed to return here immediately for any new, worsening, or concerning symptoms. Patient verbalizes understanding and agrees with this plan. - Radiology Data Radiology results: report reviewed, image reviewed 2 views of the right leg are obtained, 3 views of the right ankle, and 3 views of the right foot are obtained. There is no proximal acute fracture or dislocation seen in the right tibia or fibula. The right knee joint appears within normal limits. The overlying soft tissue appears unremarkable. Images of the right ankle show demineralization. There is oblique nondisplaced fracture to the lateral malleolus at the level of the ankle mortise. Mortise symmetry is preserved. Medial malleolus is intact. Images of the right foot show demineralization there is no acute fracture or dislocation evident. Flexion in toes is present. Joint spaces are maintained. Overlying soft tissues unremarkable. Impression by Dr. White shows there is an acute nondisplaced oblique fracture through the lateral malleolus at the level of the ankle mortise ([place] Type B). Disposition Clinical Impression: Fracture of right ankle, lateral malleolus Disposition: HOME SELF-CARE Condition: Good Instructions: Ankle Fracture (ED), Splint Care (ED) Additional Instructions: Keep splint in place until follow-up with orthopedic physician. Call when you leave here to make a follow-up appointment. Take copy of the x-ray with you to this appointment. Keep extremity non-weight bearing. Use crutches for ambulation. Keep right ankle elevated, apply ice at least 4 times daily. Return here immediately for any new, worsening, or concerning symptoms. Prescriptions: Hydrocodone/Acetaminophen [[place] 5-325] 1 tab PO Q6HR PRN #20 tab PRN Reason: Pain Referrals: Susan Galarza MD [Primary Care Provider] - 1-2 days Dexter Bernard MD [STAFF PHYSICIAN] - 1-2 days Time of Disposition: 14:39
--- NOTE | 2017-03-27 14:28 | XR ---
EXAMINATION TYPE: XR tibia fibula RT, XR foot complete RT, XR ankle complete RT DATE OF EXAM: 03/27/2017 CLINICAL HISTORY: Fall injury yesterday with pain. TECHNIQUE: Two views of the right leg are obtained. 3 views of right ankle and 3 views of right foot are obtained. COMPARISON: None. FINDINGS: There is no proximal acute fracture or dislocation seen in the right tibia or fibula. The right knee joint appears within normal limits. The overlying soft tissue appears unremarkable. Images of right ankle show demineralization. There is oblique nondisplaced fracture through lateral m alleolus at level of ankle mortise. Mortise symmetry is preserved. Medial malleolus is intact. Images of right foot show demineralization. There is no acute fracture or dislocation evident. Flexio n in toes is present. Joint spaces are maintained. Overlying soft tissue is unremarkable. IMPRESSION: There is acute nondisplaced oblique fracture through the lateral malleolus at level of a nkle mortise ([place] type B). (Initial encounter closed type post traumatic fracture)
[2017-03-27 15:01] VITALS: BP 187/83; PULSE 70; RESP 18
== END 2017-03-27 14:59 | disposition home or self-care (01) ==
LOC: EC 13:36
DX: S82.64XA Nondisplaced fracture of lateral malleolus of right fibula, initial encounter for closed fracture (principal); I10 Essential (primary) hypertension; J45.909 Unspecified asthma, uncomplicated; E11.319 Type 2 diabetes mellitus with unspecified diabetic retinopathy without macular edema; Z79.4 Long term (current) use of insulin; Z79.51 Long term (current) use of inhaled steroids; Z79.899 Other long term (current) drug therapy; Z88.0 Allergy status to penicillin; Z88.2 Allergy status to sulfonamides; Z88.7 Allergy status to serum and vaccine; W18.09XA Striking against other object with subsequent fall, initial encounter; Y93.89 Activity, other specified
CPT/HCPCS: 29515; 99283

== ENCOUNTER 2017-04-08 15:12 | Inpatient (IN) | payer BC, MEDICARE, OTHER ==
[2017-04-08] MEDS ORDERED: ONDANSETRON 4 MG/2 ML VIAL IVP STA (15:33)
[2017-04-08] MEDS ORDERED: HYDROmorphone 1 MG/ML 1 ML SYRINGE IVP STA (15:33)
[2017-04-08] MEDS ORDERED: SODIUM CHLORIDE 0.9% 1,000 ML IV STA (15:33)
[2017-04-08] MEDS ORDERED: RX INFO: IV CONTRAST WAS GIVEN 1 EACH MISC MISCELLANE PRN (15:34)
--- NOTE | 2017-04-08 15:37 | ED ---
General Adult HPI - General Chief complaint: Abdominal Pain Stated complaint: pancreatitis Time Seen by Provider: 04/08/17 15:29 Source: patient, RN notes reviewed Mode of arrival: wheelchair Limitations: no limitations - History of Present Illness Initial comments: 52-year-old female presents to the emergency department with a chief complaint of epigastric abdominal pain that is squeezing in nature. Patient states much like the pain. This flare up she had in the past. Patient states she's had some nausea vomiting with this. Patient states is radiation to the left side. Patient denies any chest pain or difficulty breathing with this. She has had a few episodes of diarrhea. Patient was concerned due to her pain so she thought that she should be evaluated. Patient denies any recent fever, chills, shortness of breath, chest pain, back pain, numbness or tingling, dysuria or hematuria, constipation, headaches or visual changes, or any other current symptoms. - Related Data Home Medications Medication Instructions Recorded Confirmed Albuterol Sulfate [Proair Hfa] 2 puff INHALATION RT-Q4H PRN 02/25/17 04/08/17 Beclomethasone Dipropionate [Qvar 1 puff INHALATION RT-BID 02/25/17 04/08/17 80 mcg] Citalopram Hydrobromide [CeleXA] 40 mg PO DAILY 02/25/17 04/08/17 Gabapentin 600 mg PO TID 02/25/17 04/08/17 Insulin Aspart Protam & Aspart 25 unit SQ AC-SUPPER 02/25/17 04/08/17 [NovoLOG MIX 70-30 Flexpen] Insulin Aspart Protam & Aspart 35 unit SQ -BRKFST 02/25/17 04/08/17 [NovoLOG MIX 70-30 Flexpen] Lisinopril-Hctz 20-25 mg 1 tab PO DAILY 02/25/17 04/08/17 [Zestoretic 20-25] Metoprolol Tartrate [Lopressor] 100 mg PO BID-W/MEALS 02/25/17 04/08/17 Ranitidine HCl [Zantac] 150 mg PO BID 02/25/17 04/08/17 amLODIPine [Norvasc] 10 mg PO DAILY 02/25/17 04/08/17 Previous Rx's Medication Instructions Recorded Hydrocodone/Acetaminophen [[place] 1 tab PO Q6HR PRN #20 tab 03/27/17 5-325] Allergies Allergy/AdvReac Type Severity Reaction Status Date / Time acetaminophen [From [place]] Allergy Hallucinati Verified 04/08/17 15:27 ons hydrocodone [From [place]] Allergy Hallucinati Verified 04/08/17 15:27 ons Penicillins Allergy Anaphylaxis Verified 04/08/17 15:27 Sulfa (Sulfonamide Allergy Anaphylaxis Verified 04/08/17 15:27 Antibiotics) MMR vaccine Allergy Rash/Hives Uncoded 04/08/17 15:15 Review of Systems ROS Statement: Those systems with pertinent positive or pertinent negative responses have been documented in the HPI. ROS Other: All systems not noted in ROS Statement are negative. Past Medical History Past Medical History: Asthma, Diabetes Mellitus, Hypertension Additional Past Medical History / Comment(s): diabetic retinopathy, pancreatitis History of Any Multi-Drug Resistant Organisms: None Reported Past Surgical History: Section, Uterine Ablation Additional Past Surgical History / Comment(s): left eye artificial lens Past Psychological History: Anxiety Smoking Status: Never smoker Past Alcohol Use History: None Reported Past Drug Use History: None Reported General Exam - General Exam Comments Initial Comments: General: The patient is awake and alert, in no distress, and does not appear acutely ill. Eye: Pupils are equal, round and reactive to light, extra-ocular movements are intact; there is normal conjunctiva bilaterally. No signs of icterus. Ears, nose, mouth and throat: There are moist mucous membranes and no oral lesions. Neck: The neck is supple, there is no tenderness. Cardiovascular: There is a regular rate and rhythm. No murmur, rub or gallop is appreciated. Respiratory: Lungs are clear to auscultation, respirations are non-labored, breath sounds are equal. No wheezes, stridor, rales, or rhonchi. Gastrointestinal: Soft, non-distended, non-tender abdomen without masses or organomegaly noted. There is no rebound or guarding present. No CVA tenderness. Bowel sounds are unremarkable. Back: There is no tenderness to palpation in the midline. There is no obvious deformity. No rashes noted. Musculoskeletal: Normal ROM, no tenderness, There is no pedal edema. There is no calf tenderness or swelling. Sensation intact. Pulses equal bilaterally 2+. Neurological: CN II-XII intact, There are no obvious motor or sensory deficits. Coordination appears grossly intact. Speech is normal. Skin: Skin is warm and dry and no rashes or lesions are noted. Psychiatric: Cooperative, appropriate mood & affect, normal judgment. Limitations: no limitations Course Vital Signs 04/08/17 15:13 Temperature 98.0 F Pulse Rate 122 H Respiratory 22 Rate Blood Pressure 154/78 O2 Sat by Pulse 98 Oximetry Medical Decision Making - Medical Decision Making 52-year-old female presents for epigastric abdominal pain. At this time patient 's lab work is showing acute otitis. Patient creatinine is elevated 1.9 and does not appear much higher than her baseline reviewing labs. This time we will hydrate the patient and admit her to Dr. Montalvo would like Dr. Wu GI consult at. This was discussed with the patient and plan and they agree. Dr. Ray discussed case with Dr. Sumner - Lab Data Result diagrams: 04/08/17 15:29 04/08/17 15:29 Lab Results 04/08/17 04/08/17 Range/Units 15:29 15:29 WBC 10.8 H (3.8-10.6) k/uL RBC 4.85 (3.80-5.40) m/uL Hgb 14.0 (11.4-16.0) gm/dL Hct 42.7 (34.0-46.0) % MCV 88.0 (80.0-100.0) fL MCH 28.9 (25.0-35.0) pg MCHC 32.9 (31.0-37.0) g/dL RDW 14.2 (11.5-15.5) % Plt Count 397 (150-450) k/uL Neutrophils % 79 % Lymphocytes % 9 % Monocytes % 4 % Eosinophils % 8 % Basophils % 0 % Neutrophils # 8.5 H (1.3-7.7) k/uL Lymphocytes # 1.0 (1.0-4.8) k/uL Monocytes # 0.4 (0-1.0) k/uL Eosinophils # 0.8 H (0-0.7) k/uL Basophils # 0.0 (0-0.2) k/uL Sodium 138 (137-145) mmol/L Potassium 4.2 (3.5-5.1) mmol/L Chloride 97 L (98-107) mmol/L Carbon Dioxide 24 (22-30) mmol/L Anion Gap 17 mmol/L BUN 30 H (7-17) mg/dL Creatinine 1.94 H (0.52-1.04) mg/dL Est GFR (MDRD) Af Amer 33 (>60 ml/min/1.73 sqM) Est GFR (MDRD) Non-Af 27 (>60 ml/min/1.73 sqM) Glucose 419 H (74-99) mg/dL Calcium 10.4 H (8.4-10.2) mg/dL Total Bilirubin 0.6 (0.2-1.3) mg/dL AST 15 (14-36) U/L ALT 23 (9-52) U/L Alkaline Phosphatase 107 (38-126) U/L Total Protein 7.8 (6.3-8.2) g/dL Albumin 4.2 (3.5-5.0) g/dL Amylase 100 (30-110) U/L Lipase 815 H (23-300) U/L - Radiology Data Radiology results: report reviewed, image reviewed Disposition Clinical Impression: Acute pancreatitis, Dehydration Disposition: ADMITTED IP TO THIS [facility] Condition: Stable Referrals: Susan Galarza MD [Primary Care Provider] - 1-2 days Time of Disposition: 16:57 Decision Date: 04/08/17 Decision Time: 16:57
[2017-04-08 15:40] LABS: Basophils % (A) 0 %; CH 30.8; CHCM 35.1; Eosinophils # (A) 0.8 k/uL (0-0.7); Eosinophils % (A) 8 %; HCT 42.7 % (34.0-46.0); HDW 2.55; Luc # (Auto) 0.08; Luc % (Auto) 1; Lymphocytes % (A) 9 %; MCH 28.9 pg (25.0-35.0); MCHC 32.9 g/dL (31.0-37.0); Mean Platelet Volume 7.3; Monocytes # (A) 0.4 k/uL (0-1.0); Monocytes % (A) 4 %; Neutrophils # (A) 8.5 k/uL (1.3-7.7); Neutrophils % (A) 79 %; RBC 4.85 m/uL (3.80-5.40); RDW 14.2 % (11.5-15.5); WBC 10.8 k/uL (3.8-10.6)
[2017-04-08 15:48] LABS: Calcium 10.4 mg/dL (8.4-10.2); Potassium 4.2 mmol/L (3.5-5.1); Total Bilirubin 0.6 mg/dL (0.2-1.3); Total Protein 7.8 g/dL (6.3-8.2)
--- NOTE | 2017-04-08 16:31 | CT ---
EXAMINATION TYPE: CT abdomen pelvis wo con DATE OF EXAM: 04/08/2017 COMPARISON: NONE INDICATION: Patient complains of epigastric to LUQ pain. DLP: 1168.5 mGycm, Automated exposure control for dose reduction was used. CONTRAST: 0 mL of Omnipaque 300. Study performed without Oral Contrast TECHNIQUE: Axial images were obtained from above the diaphragm to the pubic rami in the axial plane a t 5 mm thick sections. Reconstructed images are reviewed on the computer in the coronal plane. FINDINGS: Limited CT sections are obtained the lung bases. The lung bases are clear. CT ABDOMEN: Liver: Normal Spleen: Normal Pancreas: Normal Adrenal glands: The adrenal glands are normal. Gallbladder: Normal Kidneys: No masses are evident. No hydronephrosis is present. There may be a cortical renal cyst me asuring 1.8 cm in transverse dimension mid left kidney. Delayed images were obtained through the kid neys, which remain unremarkable. Aorta: Vascular calcification is within the aorta. Inferior vena cava: Normal. CT PELVIS: Loops of bowel within the abdomen and pelvis are normal. Appendix: Normal as visualized. Urinary bladder: Normal. Genitourinary structures: Uterus and adnexal regions are clear. Osseous structures: No suspicious lytic or sclerotic lesions. IMPRESSIONS: 1. No acute changes.
[2017-04-08] MEDS ORDERED: INSULIN LISPRO (humaLOG) 300 UNIT/3 ML VIAL SQ ONE (16:41)
[2017-04-08] MEDS ORDERED: NALOXONE 0.4 MG/ML 1 ML VIAL IV PRN (16:57)
[2017-04-08] MEDS ORDERED: ONDANSETRON 4 MG TAB PO PRN (16:59)
[2017-04-08] MEDS ORDERED: HYDROcodone/APAP 5-325MG 1 EACH TAB PO PRN (17:00)
[2017-04-08 17:01] LABS: Appearance,Urine Cloudy (Clear); Bacteria,Urine Many /hpf; Bilirubin,Urine Negative (Negative); Glucose,Urine (UA) 4+ (Negative); Ketones,Urine 1+ (Negative); Leukocyte Esterase,Urine Negative (Negative); Mucus,Urine Rare /hpf; Nitrite,Urine Negative (Negative); Particle Count 5426; Protein,Urine 2+ (Negative); RBC,Urine <1 /hpf (0-5); Specific Gravity,Urine 1.009 (1.001-1.035); Squamous Epithelial Cell,Urine 2 /hpf (0-4); UA Billing (MACRO vs. MICRO) MICRO; Urobilinogen,Urine <2.0 mg/dL (<2.0); WBC,Urine 3 /hpf (0-5)
[2017-04-08] MEDS: SODIUM CHLORIDE 0.9% 1,000 ML IV SCH (17:06)
--- NOTE | 2017-04-08 17:51 | P.HPIM ---
History of Present Illness H&P Date: 04/08/17 Chief Complaint: abdominal pain This is 52 years old female who presented to the hospital with abdominal pain, nausea and vomiting. Patient had recent hospitalization back in February 2017 for the same reason where she was diagnosed with pancreatitis which resolved spontaneously with conservative management and felt to be related to gallstones patient at that time was discharged to follow up with GI outpatient but never followed with GI and followed up with her primary care physician regarding her uncontrolled diabetes. This time patient started having abdominal pain yesterday evening describe it as cramping located to the lower abdomen and epigastric area no radiation to the back and patient said that the pain was not going away she stopped eating and drinking yesterday and continue to take only sips of water and despite that the abdominal pain continued and later she started vomiting or stomach content no blood noticed in the vomitus and patient stated that her bowel movement has been loose over the last 2 weeks. Patient denied any recent change in her diet, recent change in her medication or taking any [id number] medication. Patient denied alcohol abuse and said that she drinks once in a great while and last drink was maybe more than 3 month ago at the bedside who reassured me that they have no alcoholic beverages at home. Patient denied tobacco or drug abuse. Patient said that her diabetes has been up and down and does not know what hemoglobin A1c mean and not sure if it's controlled and in controlled. Patient has been taking NovoLog 25 units in the morning and 35 units in the afternoon and the stone was done that she takes for her diabetes. Patient denies any constructional symptoms including weight loss, low-grade fever or generalized fatigue. Review of Systems All 14 systems are reviewed and negative except as mentioned in history of present illness Past Medical History Past Medical History: Asthma, Diabetes Mellitus, Hypertension Additional Past Medical History / Comment(s): diabetic retinopathy, pancreatitis History of Any Multi-Drug Resistant Organisms: None Reported Past Surgical History: Section, Uterine Ablation Additional Past Surgical History / Comment(s): left eye artificial lens Past Psychological History: Anxiety Smoking Status: Never smoker Past Alcohol Use History: None Reported Past Drug Use History: None Reported Medications and Allergies Home Medications Medication Instructions Recorded Confirmed Type Albuterol Sulfate [Proair Hfa] 2 puff INHALATION RT-Q4H PRN 02/25/17 04/08/17 History Beclomethasone Dipropionate [Qvar 1 puff INHALATION RT-BID 02/25/17 04/08/17 History 80 mcg] Citalopram Hydrobromide [CeleXA] 40 mg PO DAILY 02/25/17 04/08/17 History Gabapentin 600 mg PO TID 02/25/17 04/08/17 History Insulin Aspart Protam & Aspart 25 unit SQ AC-SUPPER 02/25/17 04/08/17 History [NovoLOG MIX 70-30 Flexpen] Insulin Aspart Protam & Aspart 35 unit SQ AC-BRKFST 02/25/17 04/08/17 History [NovoLOG MIX 70-30 Flexpen] Lisinopril-Hctz 20-25 mg 1 tab PO DAILY 02/25/17 04/08/17 History [Zestoretic 20-25] Metoprolol Tartrate [Lopressor] 100 mg PO BID-W/MEALS 02/25/17 04/08/17 History Ranitidine HCl [Zantac] 150 mg PO BID 02/25/17 04/08/17 History amLODIPine [Norvasc] 10 mg PO DAILY 02/25/17 04/08/17 History Hydrocodone/Acetaminophen [[place] 1 tab PO Q6HR PRN #20 tab 03/27/17 04/08/17 Rx 5-325] Allergies Allergy/AdvReac Type Severity Reaction Status Date / Time acetaminophen [From [place]] Allergy Hallucinati Verified 04/08/17 15:27 ons hydrocodone [From [place]] Allergy Hallucinati Verified 04/08/17 15:27 ons measles, mumps, and rubella Allergy Rash/Hives Verified 04/08/17 17:46 vaccine Penicillins Allergy Anaphylaxis Verified 04/08/17 15:27 Sulfa (Sulfonamide Allergy Anaphylaxis Verified 04/08/17 15:27 Antibiotics) Physical Exam Vitals: Vital Signs Temp Pulse Resp BP Pulse Ox 04/08/17 17:11 98 F 102 H 18 167/82 95 04/08/17 15:13 98.0 F 122 H 22 154/78 98 Intake and Output 04/08/17 04/08/17 04/08/17 06:59 14:59 22:59 Other: Weight 108.862 kg Patient Weight 04/09/17 06:59 Weight 108.862 kg - Constitutional General appearance: no acute distress, obese - EENT Eyes: PERRLA, poor dentition, normal appearance ENT: hearing grossly normal - Neck Neck: normal ROM Thyroid: bilateral: normal size - Respiratory Respiratory: bilateral: CTA - Cardiovascular Heart sounds: normal: S1, S2 - Gastrointestinal General gastrointestinal: distended, normal bowel sounds, soft, tenderness Localized gastrointestinal: tender: diffuse (mild) - Integumentary Integumentary: normal - Neurologic Neurologic: CNII-XII intact - Musculoskeletal Musculoskeletal: gait normal - Psychiatric Psychiatric: A&O x's 3, appropriate affect, intact judgment & insight Results CBC & Chem 7: 04/08/17 15:29 04/08/17 15:29 Labs: Abnormal Lab Results - Last 24 Hours (Table) 04/08/17 04/08/17 04/08/17 Range/Units 15:29 15:29 16:48 WBC 10.8 H (3.8-10.6) k/uL Neutrophils # 8.5 H (1.3-7.7) k/uL Eosinophils # 0.8 H (0-0.7) k/uL Chloride 97 L (98-107) mmol/L BUN 30 H (7-17) mg/dL Creatinine 1.94 H (0.52-1.04) mg/dL Glucose 419 H (74-99) mg/dL Calcium 10.4 H (8.4-10.2) mg/dL Lipase 815 H (23-300) U/L Urine Appearance Cloudy H (Clear) Urine Protein 2+ H (Negative) Urine Glucose (UA) 4+ H (Negative) Urine Ketones 1+ H (Negative) Urine Blood Trace H (Negative) Urine Bacteria Many H (None) /hpf Hyaline Casts 3 H (0-2) /lpf Urine Mucus Rare H (None) /hpf Thrombosis Risk Factor Assmnt - Choose All That Apply Each Factor Represents 1 point: Age 41-60 years, Obesity (BMI >25) Thrombosis Risk Factor Assessment Total Risk Factor Score: 2 Thrombosis Risk Factor Assessment Level: Low Risk Assessment and Plan Plan: 1. Intractable nausea and vomiting with epigastric abdominal pain. Etiology secondary to acute pancreatitis 2. Acute pancreatitis. Etiology is still unclear previous presentation with similar symptoms and elevation and pancreatic enzymes was attributed to 2 gallstones. I would like to keep patient's nothing by mouth, continue gentle hydration, continue with Zofran for nausea and control her pain on as needed basis I also would like to consult GI for consideration of ERCP given the recurrent pancreatitis and negative evidence of gallstones on CAT scan of the abdomen. Other consideration for HIDA scan with CCK need to be taken based on GI recommendation. Plan discussed with the patient and her at the bedside who both agreed to the current treatment plan. Liver enzymes are still pending and we will repeat blood test in the morning 3. Uncontrolled diabetes2. I would like to check on her hemoglobin A1c have the patient on insulin sliding scale and consultation regarding medication adherence, weight loss and healthy lifestyle. 4. Hypertension Controlled we will continue monitoring closely given the fact that patient is receiving IV fluid and introduce home medication with holding parameters 5. Anxiety and depression. Continue citalopram. 6. Obesity. Weight loss counseling. 7. Questionable obstructive sleep apnea. Sleep study outpatient per primary care physician. 8. Acute kidney injury likely secondary to dehydration. Continue gentle hydration and repeat kidney function in the morning. 9. GERD. Continue proton pump inhibitors. Follow-up with GI recommendation. 10. Asthma. Seems to be compensated. We'll continue home regimen. 11. Retinopathy with cataract in the left eye.
[2017-04-08] MEDS ORDERED: FAMOTIDINE 20 MG TAB PO SCH (18:00)
[2017-04-08 18:40] VITALS: BMI 43.9
[2017-04-08 18:48] LABS: Glucose,Whole Blood 309 mg/dL (75-99)
[2017-04-08] MEDS: INSULN ASP PRT/INSULIN ASPART 100 UNIT/ML 10 ML VIAL SQ SCH (18:54)
[2017-04-08] MEDS: METOPROLOL TARTRATE 50 MG TAB PO SCH (18:55)
[2017-04-08] MEDS: BUDESONIDE 1 MG/2 ML NEBU INHALATION SCH (19:11)
[2017-04-08] MEDS: HYDROmorphone 1 MG/ML 1 ML SYRINGE IVP PRN (20:26)
[2017-04-08] MEDS: FAMOTIDINE 20 MG/2 ML VIAL IV SCH (21:05)
[2017-04-08] MEDS: INSULIN LISPRO (humaLOG) 300 UNIT/3 ML VIAL SQ SCH (21:07)
[2017-04-08 21:08] LABS: Glucose,Whole Blood 168 mg/dL (75-99)
[2017-04-08] MEDS: GABAPENTIN 300 MG CAP PO SCH (21:08)
[2017-04-09] MEDS: ALPRAZolam 0.5 MG TAB PO SCH ×2 (04:42→20:48)
[2017-04-09] MEDS: SODIUM CHLORIDE 0.9% 1,000 ML IV SCH ×3 (06:38→21:05)
[2017-04-09 07:26] LABS: Glucose,Whole Blood 167 mg/dL (75-99)
[2017-04-09 07:28] LABS: Basophils % (A) 0 %; CH 29.1; CHCM 32.4; Eosinophils # (A) 0.5 k/uL (0-0.7); Eosinophils % (A) 7 %; HCT 32.9 % (34.0-46.0); HDW 2.56; Luc # (Auto) 0.11; Luc % (Auto) 2; Lymphocytes # (A) 1.1 k/uL (1.0-4.8); Lymphocytes % (A) 15 %; MCH 29.9 pg (25.0-35.0); MCHC 33.1 g/dL (31.0-37.0); MCV 90.1 fL (80.0-100.0); Mean Platelet Volume 6.7; Monocytes # (A) 0.4 k/uL (0-1.0); Monocytes % (A) 5 %; Neutrophils # (A) 5.4 k/uL (1.3-7.7); Neutrophils % (A) 71 %; RBC 3.65 m/uL (3.80-5.40); RDW 13.6 % (11.5-15.5); WBC 7.6 k/uL (3.8-10.6); WBC (Perox) 7.84
[2017-04-09 07:29] LABS: HGB 10.9 gm/dL (11.4-16.0)
[2017-04-09 07:31] LABS: Potassium 3.9 mmol/L (3.5-5.1); Total Bilirubin 0.3 mg/dL (0.2-1.3); Total Protein 6.3 g/dL (6.3-8.2)
[2017-04-09] MEDS: ALBUTEROL NEBULIZED 2.5 MG/3 ML INHALATION PRN ×2 (08:01→20:35)
[2017-04-09] MEDS: BUDESONIDE 1 MG/2 ML NEBU INHALATION SCH ×2 (08:01→20:35)
[2017-04-09] MEDS: amLODIPine 10 MG TAB PO SCH (08:11)
[2017-04-09] MEDS: METOPROLOL TARTRATE 50 MG TAB PO SCH ×2 (08:11→17:53)
[2017-04-09] MEDS: PANTOPRAZOLE 40 MG/10 ML VIAL IV SCH (08:11)
[2017-04-09] MEDS: HYDROmorphone 1 MG/ML 1 ML SYRINGE IVP PRN ×2 (08:11→21:17)
[2017-04-09] MEDS: GABAPENTIN 300 MG CAP PO SCH ×3 (08:11→20:46)
[2017-04-09] MEDS: CITALOPRAM HYDROBROMIDE 20 MG TAB PO SCH (08:11)
[2017-04-09] MEDS: LISINOPRIL-HCTZ 20-25 MG 1 EACH TAB PO SCH (08:11)
[2017-04-09] MEDS: FAMOTIDINE 20 MG/2 ML VIAL IV SCH (08:11)
[2017-04-09] MEDS: INSULN ASP PRT/INSULIN ASPART 100 UNIT/ML 10 ML VIAL SQ SCH ×2 (08:12→17:52)
[2017-04-09] MEDS: INSULIN LISPRO (humaLOG) 300 UNIT/3 ML VIAL SQ SCH ×4 (08:12→21:07)
--- NOTE | 2017-04-09 10:44 | P.PN ---
Subjective Principal diagnosis: Pancreatitis [employer] Professor pain this am, mild nausea only. Denies any fever, chills, jaundice, diarrhea or constipation. Objective - Vital Signs Vital signs: Vital Signs Temp 99.2 F 04/09/17 07:00 Pulse 92 04/09/17 08:14 Resp 16 04/09/17 07:00 BP 150/90 04/09/17 07:00 Pulse Ox 95 04/09/17 07:00 Intake & Output 04/08/17 04/09/17 04/09/17 18:59 06:59 18:59 Intake Total 100 Balance 100 Weight 108.86 kg Intake: Amount of Fluid Infused ( 100 ml) Other: # Voids 1 - Constitutional General appearance: Present: cooperative, no acute distress, obese - EENT Eyes: Present: anicteric sclerae, EOMI, PERRLA - Neck Neck: Present: normal ROM. Absent: lymphadenopathy - Respiratory Respiratory: bilateral: CTA - Cardiovascular Rhythm: regular Heart sounds: normal: S1, S2 - Gastrointestinal General gastrointestinal: Present: normal bowel sounds, soft. Absent: organomegaly, tenderness - Integumentary Integumentary: Absent: jaundiced, rash - Neurologic Neurologic: Present: CNII-XII intact - Psychiatric Psychiatric: Present: A&O x's 3 - Labs CBC & Chem 7: 04/09/17 07:08 04/09/17 07:08 Labs: Abnormal Lab Results - Last 24 Hours (Table) 04/08/17 04/08/17 04/08/17 Range/Units 15:29 15:29 16:48 WBC 10.8 H (3.8-10.6) k/uL RBC (3.80-5.40) m/uL Hgb (11.4-16.0) gm/dL Hct (34.0-46.0) % Neutrophils # 8.5 H (1.3-7.7) k/uL Eosinophils # 0.8 H (0-0.7) k/uL Chloride 97 L (98-107) mmol/L BUN 30 H (7-17) mg/dL Creatinine 1.94 H (0.52-1.04) mg/dL Glucose 419 H (74-99) mg/dL POC Glucose (mg/dL) (75-99) mg/dL Calcium 10.4 H (8.4-10.2) mg/dL AST (14-36) U/L Albumin (3.5-5.0) g/dL Lipase 815 H (23-300) U/L Urine Appearance Cloudy H (Clear) Urine Protein 2+ H (Negative) Urine Glucose (UA) 4+ H (Negative) Urine Ketones 1+ H (Negative) Urine Blood Trace H (Negative) Urine Bacteria Many H (None) /hpf Hyaline Casts 3 H (0-2) /lpf Urine Mucus Rare H (None) /hpf 04/08/17 04/08/17 04/09/17 Range/Units 17:58 20:55 07:08 WBC (3.8-10.6) k/uL RBC 3.65 L (3.80-5.40) m/uL Hgb 10.9 L D (11.4-16.0) gm/dL Hct 32.9 L (34.0-46.0) % Neutrophils # (1.3-7.7) k/uL Eosinophils # (0-0.7) k/uL Chloride (98-107) mmol/L BUN (7-17) mg/dL Creatinine (0.52-1.04) mg/dL Glucose (74-99) mg/dL POC Glucose (mg/dL) 309 H 168 H (75-99) mg/dL Calcium (8.4-10.2) mg/dL AST (14-36) U/L Albumin (3.5-5.0) g/dL Lipase (23-300) U/L Urine Appearance (Clear) Urine Protein (Negative) Urine Glucose (UA) (Negative) Urine Ketones (Negative) Urine Blood (Negative) Urine Bacteria (None) /hpf Hyaline Casts (0-2) /lpf Urine Mucus (None) /hpf 04/09/17 04/09/17 Range/Units 07:08 07:23 WBC (3.8-10.6) k/uL RBC (3.80-5.40) m/uL Hgb (11.4-16.0) gm/dL Hct (34.0-46.0) % Neutrophils # (1.3-7.7) k/uL Eosinophils # (0-0.7) k/uL Chloride (98-107) mmol/L BUN 35 H (7-17) mg/dL Creatinine 2.14 H (0.52-1.04) mg/dL Glucose 168 H (74-99) mg/dL POC Glucose (mg/dL) 167 H (75-99) mg/dL Calcium (8.4-10.2) mg/dL AST 12 L (14-36) U/L Albumin 3.1 L (3.5-5.0) g/dL Lipase (23-300) U/L Urine Appearance (Clear) Urine Protein (Negative) Urine Glucose (UA) (Negative) Urine Ketones (Negative) Urine Blood (Negative) Urine Bacteria (None) /hpf Hyaline Casts (0-2) /lpf Urine Mucus (None) /hpf Assessment and Plan Plan: 1. Acute pancreatitis presumable symptoms improved CT abdomen stable awaiting GI input 2. type 2 DM coninued on home insulin monitor BG closely if planned to cont NPO for any procedure or due to pancreatitis arelis have to discont 70/30 3. ORALIA resolved Time with Patient: Greater than 30
[2017-04-09 12:00] LABS: Hemoglobin A1C 8.5 % (4.2-6.1)
[2017-04-09 12:12] LABS: Glucose,Whole Blood 87 mg/dL (75-99)
--- NOTE | 2017-04-09 16:11 | P.CONS ---
History of Present Illness - Reason for Consult Consult date: 04/09/17 Acute pancreatitis - History of Present Illness The patient is a 52-year-old female with a past medical history of hypertension and diabetes mellitus type 2 was admitted to hospital through the emergency room with complaints of epigastric and right upper quadrant abdominal pain of few hours duration associated with nausea vomiting with radiation to her back. The patient was hospitalized March 02 abdominal pain and elevated amylase and lipase and was managed for acute pancreatitis. At that time, she was having abdominal pain intermittently for 2 weeks. For several days prior to that admission she was having fevers and nausea then the day of her presentation to the emergency room she was having worsening nausea and vomiting. Workup did not reveal evidence of cholelithiasis. As the patient improved at that time, the working diagnosis was that of common bile duct stone that she passed spontaneously. I saw her in follow-up after discharge and since this was her first episode and since he was doing well no additional workup was planned. She was going to see the surgeon as outpatient. The patient had elevated lipase and amylase levels on admission.. Liver enzymes were not elevated. CT of the abdomen and pelvis did not show any obvious abnormalities. No gallstones noted. No history of alcohol consumption or other possible underlying causes for pancreatitis. The patient had significant improvement since admission. Review of Systems 14 point review of systems is, otherwise, unrevealing except as mentioned above. Patient is wearing a cast over the right lower extremity for an ankle fracture. Past Medical History Past Medical History: Asthma, Diabetes Mellitus, GERD/Reflux, Hypertension Additional Past Medical History / Comment(s): diabetic retinopathy, pancreatitis History of Any Multi-Drug Resistant Organisms: None Reported Past Surgical History: Section, Uterine Ablation Additional Past Surgical History / Comment(s): left eye artificial lens Past Anesthesia/Blood Transfusion Reactions: Postoperative Nausea & Vomiting ( PONV) Past Psychological History: Anxiety Smoking Status: Never smoker Past Alcohol Use History: None Reported Past Drug Use History: None Reported - Past Family History Father Family Medical History: Cancer, Diabetes Mellitus, Hypertension Mother Family Medical History: Hypertension Medications and Allergies Home Medications Medication Instructions Recorded Confirmed Type Albuterol Sulfate [Proair Hfa] 2 puff INHALATION RT-Q4H PRN 02/25/17 04/08/17 History Beclomethasone Dipropionate [Qvar 1 puff INHALATION RT-BID 02/25/17 04/08/17 History 80 mcg] Citalopram Hydrobromide [CeleXA] 40 mg PO DAILY 02/25/17 04/08/17 History Gabapentin 600 mg PO TID 02/25/17 04/08/17 History Insulin Aspart Protam & Aspart 25 unit SQ AC-SUPPER 02/25/17 04/08/17 History [NovoLOG MIX 70-30 Flexpen] Insulin Aspart Protam & Aspart 35 unit SQ AC-BRKFST 02/25/17 04/08/17 History [NovoLOG MIX 70-30 Flexpen] Lisinopril-Hctz 20-25 mg 1 tab PO DAILY 02/25/17 04/08/17 History [Zestoretic 20-25] Metoprolol Tartrate [Lopressor] 100 mg PO BID-W/MEALS 02/25/17 04/08/17 History Ranitidine HCl [Zantac] 150 mg PO BID 02/25/17 04/08/17 History amLODIPine [Norvasc] 10 mg PO DAILY 02/25/17 04/08/17 History Hydrocodone/Acetaminophen [[place] 1 tab PO Q6HR PRN #20 tab 03/27/17 04/08/17 Rx 5-325] Allergies Allergy/AdvReac Type Severity Reaction Status Date / Time acetaminophen [From [place]] Allergy Hallucinati Verified 04/08/17 15:27 ons hydrocodone [From [place]] Allergy Hallucinati Verified 04/08/17 15:27 ons measles, mumps, and rubella Allergy Rash/Hives Verified 04/08/17 17:46 vaccine Penicillins Allergy Anaphylaxis Verified 04/08/17 15:27 Sulfa (Sulfonamide Allergy Anaphylaxis Verified 04/08/17 15:27 Antibiotics) Physical Exam Vitals: Vital Signs Temp Pulse Pulse Resp BP BP Pulse Ox 04/09/17 15:00 97.2 F L 73 20 134/73 90 L 04/09/17 08:14 92 04/09/17 08:03 96 04/09/17 07:00 99.2 F 74 16 150/90 95 04/08/17 23:00 98.3 F 85 18 140/77 93 L 04/08/17 19:18 99 04/08/17 19:14 98 04/08/17 18:47 98.5 F 98 18 139/94 96 04/08/17 18:02 97.9 F 99 18 147/72 99 04/08/17 17:11 98 F 102 H 18 167/82 95 Intake and Output 04/09/17 04/09/17 04/09/17 06:59 14:59 22:59 Intake Total 1000 Balance 1000 Intake: Intake, IV Titration 800 Amount Sodium Chloride 0.9% 1, 800 000 ml @ 100 mls/hr IV . Q10H [facility] Rx#:[id number] Oral 200 Other: # Voids 1 General appearance: The patient is alert, oriented, in no acute distress. HET: Head is normocephalic and atraumatic. Pupils are equal and reactive. Oropharynx is clear without lesions. Neck: Supple without lymphadenopathy. Trachea midline. Heart: S1 S2. Regular rate and rhythm. Lungs: No crackles or wheezes are heard. Abdomen: Soft, nontender, nondistended with bowel sounds. No peritoneal signs. No palpable organomegaly or masses. Extremities: Normal skin color and turgor. No cyanosis, rash, ulceration, clubbing, or edema. The lower Knee on the right side noted for the ankle fracture. Moving all toes without difficulty. Neurological: No focal deficits. Strength and sensation are grossly intact. Results CBC & Chem 7: 04/09/17 07:08 04/09/17 07:08 Labs: Abnormal Lab Results - Last 24 Hours (Table) 04/08/17 04/08/17 04/08/17 Range/Units 15:29 16:48 17:58 RBC (3.80-5.40) m/uL Hgb (11.4-16.0) gm/dL Hct (34.0-46.0) % BUN (7-17) mg/dL Creatinine (0.52-1.04) mg/dL Glucose (74-99) mg/dL POC Glucose (mg/dL) 309 H (75-99) mg/dL Hemoglobin A1c 8.5 H (4.2-6.1) % AST (14-36) U/L Albumin (3.5-5.0) g/dL Urine Appearance Cloudy H (Clear) Urine Protein 2+ H (Negative) Urine Glucose (UA) 4+ H (Negative) Urine Ketones 1+ H (Negative) Urine Blood Trace H (Negative) Urine Bacteria Many H (None) /hpf Hyaline Casts 3 H (0-2) /lpf Urine Mucus Rare H (None) /hpf 04/08/17 04/09/17 04/09/17 Range/Units 20:55 07:08 07:08 RBC 3.65 L (3.80-5.40) m/uL Hgb 10.9 L D (11.4-16.0) gm/dL Hct 32.9 L (34.0-46.0) % BUN 35 H (7-17) mg/dL Creatinine 2.14 H (0.52-1.04) mg/dL Glucose 168 H (74-99) mg/dL POC Glucose (mg/dL) 168 H (75-99) mg/dL Hemoglobin A1c (4.2-6.1) % AST 12 L (14-36) U/L Albumin 3.1 L (3.5-5.0) g/dL Urine Appearance (Clear) Urine Protein (Negative) Urine Glucose (UA) (Negative) Urine Ketones (Negative) Urine Blood (Negative) Urine Bacteria (None) /hpf Hyaline Casts (0-2) /lpf Urine Mucus (None) /hpf 04/09/17 Range/Units 07:23 RBC (3.80-5.40) m/uL Hgb (11.4-16.0) gm/dL Hct (34.0-46.0) % BUN (7-17) mg/dL Creatinine (0.52-1.04) mg/dL Glucose (74-99) mg/dL POC Glucose (mg/dL) 167 H (75-99) mg/dL Hemoglobin A1c (4.2-6.1) % AST (14-36) U/L Albumin (3.5-5.0) g/dL Urine Appearance (Clear) Urine Protein (Negative) Urine Glucose (UA) (Negative) Urine Ketones (Negative) Urine Blood (Negative) Urine Bacteria (None) /hpf Hyaline Casts (0-2) /lpf Urine Mucus (None) /hpf Assessment and Plan Plan: Acute pancreatitis likely related to choledocholithiasis. Since this is his second episode within the last 6 weeks, it is possible that she has a retained common bile duct stone that is acting as ball-valve. I will plan an ERCP tomorrow.
[2017-04-09 17:47] LABS: Glucose,Whole Blood 91 mg/dL (75-99)
[2017-04-09 20:38] LABS: Glucose,Whole Blood 187 mg/dL (75-99)
[2017-04-10 07:16] LABS: Glucose,Whole Blood 130 mg/dL (75-99)
[2017-04-10] MEDS: INSULIN LISPRO (humaLOG) 300 UNIT/3 ML VIAL SQ SCH ×4 (07:47→22:02)
[2017-04-10] MEDS: ALBUTEROL NEBULIZED 2.5 MG/3 ML INHALATION PRN ×2 (08:16→19:22)
[2017-04-10] MEDS: BUDESONIDE 1 MG/2 ML NEBU INHALATION SCH ×2 (08:16→19:22)
[2017-04-10] MEDS: amLODIPine 10 MG TAB PO SCH ×2 (08:17→09:24)
[2017-04-10] MEDS: METOPROLOL TARTRATE 50 MG TAB PO SCH ×3 (08:17→17:07)
[2017-04-10] MEDS: CITALOPRAM HYDROBROMIDE 20 MG TAB PO SCH ×2 (08:17→09:24)
[2017-04-10] MEDS: LISINOPRIL-HCTZ 20-25 MG 1 EACH TAB PO SCH ×2 (08:17→09:24)
[2017-04-10] MEDS: INSULN ASP PRT/INSULIN ASPART 100 UNIT/ML 10 ML VIAL SQ SCH ×2 (08:17→17:23)
[2017-04-10] MEDS: GABAPENTIN 300 MG CAP PO SCH ×4 (08:17→22:01)
[2017-04-10] MEDS: PANTOPRAZOLE 40 MG/10 ML VIAL IV SCH (09:12)
[2017-04-10] MEDS: SODIUM CHLORIDE 0.9% 1,000 ML IV SCH ×2 (09:13→11:17)
[2017-04-10] MEDS ORDERED: LEVOFLOXACIN 750MG-D5W PMX 750 MG in DEXTROSE/WATER 1 150ML.BAG IVPB STA (10:39)
[2017-04-10] MEDS ORDERED: INDOMETHACIN 50MG SUPPOSITORY RECTAL ONE (10:40)
[2017-04-10] MEDS: ONDANSETRON 4 MG/2 ML VIAL IVP PRN ×2 (12:12→17:26)
[2017-04-10 12:44] LABS: Glucose,Whole Blood 193 mg/dL (75-99)
[2017-04-10] MEDS ORDERED: MIDAZOLAM 2 MG/2 ML VIAL ONE (13:22)
[2017-04-10] MEDS ORDERED: LIDOCAINE 1% INJ 10MG/ML (20 ML MDV) ONE (13:22)
[2017-04-10] MEDS ORDERED: PROPOFOL 10 MG/ML 20 ML VIAL IV ONE (13:22)
[2017-04-10] MEDS ORDERED: GLYCOPYRROLATE 0.2 MG/ML 2 ML VIAL ONE (13:22)
[2017-04-10] MEDS ORDERED: IV FLUID CONTINUATION 1,000 ML IV ONE (13:24)
--- NOTE | 2017-04-10 14:21 | P.PCN ---
Date of Procedure: 04/10/17 Procedure(s) Performed: Procedure: Esophagogastroduodenoscopy and biopsy, this was a planned ERCP. Preoperative diagnosis: Epigastric pain and elevated pancreas enzymes. Postoperative diagnosis: Prepyloric ulcers with deformity in the antrum, multiple biopsies obtained to rule out malignancy. Biopsies were also obtained to rule out H. pylori infection. Preparation and sedation: Was provided by anesthesia. Brief clinical history: The patient is a 52-year-old female with a past medical history of hypertension and diabetes mellitus type 2 who was admitted to hospital through the emergency room with complaints of epigastric and right upper quadrant abdominal pain of few hours duration associated with nausea and vomiting with radiation to her back. The patient was hospitalized March 02 for abdominal pain and elevated amylase and lipase and was managed for acute pancreatitis. At that time, she was having abdominal pain intermittently for 2 weeks. For several days prior to that admission she was having fevers and nausea then the day of her presentation to the emergency room she was having worsening nausea and vomiting. Workup did not reveal evidence of cholelithiasis. As the patient improved at that time, the working diagnosis was that of a common bile duct stone that she passed spontaneously. I saw her in follow-up after discharge and since this was her first episode of pancreatitis and since she was doing well no additional workup was planned. She was going to see the surgeon as outpatient. The patient had elevated lipase and amylase levels on this admission.. Liver enzymes were not elevated. CT of the abdomen and pelvis did not show any obvious abnormalities. No gallstones noted. No history of alcohol consumption or other possible underlying causes for pancreatitis. The patient had significant improvement since admission. This evaluation is to assess for possible retained common bile duct stone or other pathology. Procedure: With the patient in the prone position and after informed consent and adequate sedation, I started bypassing the Olympus video duodenoscope down the esophagus into the stomach then I attempted to approach the pylorus to advance into the duodenum when I noted large prepyloric ulcers and deformity that prompted me to withdraw the endoscope and repeat the exam using the forward -viewing scope. The Olympus-GIF 160 video upper endoscope was used and was advanced through the cricopharyngeus down the esophagus. GE junction was around 38 cm from the incisors and there was limited distal esophagitis and a sliding hiatal hernia measuring around 2 cm or so but no strictures or Kaufman' s esophagus. The endoscope was then passed into the stomach which was insufflated with air and inspected in detail including the retroflex view in the cardia. I was able to pass the endoscope through the pylorus into the duodenum. I pyloric channel, duodenal bulb, post bulbar area and descending duodenum appeared within normal. The endoscope was then withdrawn back to the stomach and I then inspected the pre-pyloric antrum carefully. There was obvious deformity and large ulceration with irregular edge and a base covered with white exudate. Largest dimension was around 4 or 5 cm. There was also 2 smaller satellite ulcerations with edema and deformity of the folds in their proximity. I took a picture of that area and I obtained multiple biopsies including biopsies from the antrum to rule out H. pylori infection. Based on these findings, I decided that an ERCP would not be indicated at this point especially in light of her normal liver enzymes and a prompt improvement in her pancreatic enzymes after admission. The patient tolerated the procedure well. Plan: The patient was briefed about the findings on this exam. She is already on Protonix which would be continued. Further plans will be made based on her course. I anticipate repeating this endoscopy, the time frame based on her course and biopsy results.
[2017-04-10 17:18] LABS: Glucose,Whole Blood 248 mg/dL (75-99)
--- NOTE | 2017-04-10 17:41 | P.PN ---
Subjective Principal diagnosis: 1. Acute pancreatitis presumed choledocholithiasis 2. Diarrhea Patient was seen and evaluated this morning prior to her ERCP. She states that overall her midepigastric pain has significantly improved. She has had no nausea vomiting. She has had loose stools. This started last evening. He denies any symptoms of hypoglycemia, no chest pain, no shortness of breath, no fevers, no chills or rigors. He has not had any melena or hematochezia. She denies any headaches changes in vision or acute visual loss, no night sweats, no increased urinary frequency or urgency or gross hematuria. Objective - Vital Signs Vital signs: Vital Signs Temp 96.7 F L 04/10/17 15:00 Pulse 79 04/10/17 15:00 Resp 18 04/10/17 15:00 BP 177/84 04/10/17 15:00 Pulse Ox 92 L 04/10/17 15:00 Intake & Output 04/09/17 04/10/17 04/10/17 18:59 06:59 18:59 Intake Total 1000 1200 400 Balance 1000 1200 400 Weight 108.86 kg Intake: IV 400 Intake, IV Titration 800 Amount Sodium Chloride 0.9% 1, 800 000 ml @ 100 mls/hr IV . Q10H [facility]CO Rx#:[id number] Oral 200 1200 Other: # Voids 0 # Bowel Movements 3 - Exam Constitutional: No acute distress, conversant, pleasant Eyes: Anicteric sclerae, moist conjunctiva, no lid-lag ENMT: NC/AT Oropharynx clear, no erythema, exudates Neck: Supple, FROM, no masses, or JVD No carotid bruits No thyromegaly Lungs: Clear to auscultation Clear to percussion Normal respiratory effort, no accessory muscle use Cardiovascular: Heart regular in rate and rhythm, No murmurs, gallops, or rubs No peripheral edema Abdominal: Soft Mild tenderness to palpation in the midepigastric region, but no radiation, no guarding, rebound or rigidity Abdomen moving with respiration Normoactive bowel sounds No hepatomegaly, No splenomegaly No palpable mass No abdominal wall hernia noted Extremities: No digital cyanosis No clubbing Pedal pulses intact and symmetrical Radial pulses intact and symmetrical Normal gait and station No calf tenderness Psychiatric: Alert and oriented to person, place and time Appropriate affect Intact judgement Neuro: Muscles Strength 5/5 in all 4 extremities Sensation to light touch grossly present throughout Cranial nerves II-XII grossly intact No focal sensory deficits - Labs CBC & Chem 7: 04/09/17 07:08 04/09/17 07:08 Labs: Abnormal Lab Results - Last 24 Hours (Table) 04/09/17 04/10/17 04/10/17 Range/Units 20:35 06:59 12:31 POC Glucose (mg/dL) 187 H 130 H 193 H (75-99) mg/dL 04/10/17 Range/Units 16:55 POC Glucose (mg/dL) 248 H (75-99) mg/dL Assessment and Plan (1) Diarrhea Status: Acute (2) Diabetes mellitus type 2 in obese Status: Acute (3) Acute pancreatitis Status: Acute (4) Dehydration Status: Acute Plan: 1. Hold Long acting insulin as patient is NPO for procedure. Post procedurally may resume once diet restarted-LOW fat 2. Continue with PPI 3. Check stools for CDT 4. Monitor electrolytes, replace per protocol 5. Await GI input post- ERCP 6. Check am labs
[2017-04-10] MEDS ORDERED: LOPERAMIDE 2 MG CAP PO PRN (18:42)
[2017-04-10 20:56] LABS: Glucose,Whole Blood 105 mg/dL (75-99)
[2017-04-10] MEDS: ALPRAZolam 0.5 MG TAB PO SCH (22:01)
[2017-04-11] MEDS: HYDROmorphone 1 MG/ML 1 ML SYRINGE IVP PRN (01:46)
[2017-04-11] MEDS: INSULIN LISPRO (humaLOG) 300 UNIT/3 ML VIAL SQ SCH ×4 (07:23→21:15)
[2017-04-11 07:26] LABS: Glucose,Whole Blood 76 mg/dL (75-99)
[2017-04-11 07:58] LABS: Basophils % (A) 1 %; CH 29.1; Eosinophils # (A) 0.9 k/uL (0-0.7); Eosinophils % (A) 14 %; HCT 32.5 % (34.0-46.0); HDW 2.67; HGB 10.6 gm/dL (11.4-16.0); Luc # (Auto) 0.12; Luc % (Auto) 2; Lymphocytes # (A) 1.2 k/uL (1.0-4.8); Lymphocytes % (A) 18 %; MCH 29.7 pg (25.0-35.0); MCHC 32.5 g/dL (31.0-37.0); MCV 91.3 fL (80.0-100.0); Mean Platelet Volume 6.8; Monocytes # (A) 0.4 k/uL (0-1.0); Monocytes % (A) 6 %; Neutrophils # (A) 3.9 k/uL (1.3-7.7); Neutrophils % (A) 60 %; RBC 3.56 m/uL (3.80-5.40); RDW 13.4 % (11.5-15.5); WBC 6.5 k/uL (3.8-10.6); WBC (Perox) 6.65
[2017-04-11] MEDS: INSULN ASP PRT/INSULIN ASPART 100 UNIT/ML 10 ML VIAL SQ SCH ×2 (08:00→17:47)
[2017-04-11] MEDS: LISINOPRIL-HCTZ 20-25 MG 1 EACH TAB PO SCH (08:03)
[2017-04-11] MEDS: GABAPENTIN 300 MG CAP PO SCH ×3 (08:03→20:52)
[2017-04-11] MEDS: amLODIPine 10 MG TAB PO SCH (08:03)
[2017-04-11] MEDS: METOPROLOL TARTRATE 50 MG TAB PO SCH ×2 (08:03→17:49)
[2017-04-11] MEDS: CITALOPRAM HYDROBROMIDE 20 MG TAB PO SCH (08:03)
[2017-04-11] MEDS: PANTOPRAZOLE 40 MG/10 ML VIAL IV SCH (08:04)
[2017-04-11] MEDS: BUDESONIDE 1 MG/2 ML NEBU INHALATION SCH ×2 (08:07→20:53)
[2017-04-11] MEDS: ALBUTEROL NEBULIZED 2.5 MG/3 ML INHALATION PRN ×2 (08:07→20:53)
[2017-04-11 08:13] LABS: Calcium 9.5 mg/dL (8.4-10.2); Potassium 4.1 mmol/L (3.5-5.1)
--- NOTE | 2017-04-11 09:37 | P.PN ---
Subjective Principal diagnosis: Epigastric pain elevated pancreatic enzymes Status post EGD yesterday with findings of prepyloric ulcers with deformity status post biopsies which are pending. ERCP not performed secondary normal liver pancreatic enzymes. Presently feels well. Denies abdominal pain. Afebrile. Reports a few nonbloody loose stools. C. diff negative. Objective - Vital Signs Vital signs: Vital Signs Temp 99.0 F 04/11/17 07:00 Pulse 72 04/11/17 08:21 Resp 16 04/11/17 07:00 BP 134/82 04/11/17 07:00 Pulse Ox 98 04/11/17 07:00 Intake & Output 04/10/17 04/11/17 04/11/17 18:59 06:59 18:59 Intake Total 400 1000 320 Balance 400 1000 320 Weight 108.86 kg Intake: IV 400 Oral 1000 320 Other: Voiding Method Bedside Commode # Voids 0 # Bowel Movements 3 1 - Exam General appearance: The patient is alert, oriented, in no acute distress. HET: Head is normocephalic and atraumatic. Pupils are equal and reactive. Oropharynx is clear without lesions. Neck: Supple without lymphadenopathy. Trachea midline. Heart: S1 S2. Regular rate and rhythm. Lungs: No crackles or wheezes are heard. Abdomen: Soft, nontender, nondistended with bowel sounds. No peritoneal signs. No palpable organomegaly or masses. Extremities: Right lower extremity cast. Normal skin color and turgor. No cyanosis, rash, ulceration, clubbing, or edema. Radial and pedal pulses are 2/ 4 bilaterally. Neurological: No focal deficits. Strength and sensation are grossly intact.m - Labs CBC & Chem 7: 04/11/17 07:31 04/11/17 07:31 Labs: Abnormal Lab Results - Last 24 Hours (Table) 04/10/17 04/10/17 04/10/17 Range/Units 12:31 16:55 20:40 RBC (3.80-5.40) m/uL Hgb (11.4-16.0) gm/dL Hct (34.0-46.0) % Eosinophils # (0-0.7) k/uL BUN (7-17) mg/dL Creatinine (0.52-1.04) mg/dL POC Glucose (mg/dL) 193 H 248 H 105 H (75-99) mg/dL 04/11/17 04/11/17 Range/Units 07:31 07:31 RBC 3.56 L (3.80-5.40) m/uL Hgb 10.6 L (11.4-16.0) gm/dL Hct 32.5 L (34.0-46.0) % Eosinophils # 0.9 H (0-0.7) k/uL BUN 38 H (7-17) mg/dL Creatinine 2.39 H (0.52-1.04) mg/dL POC Glucose (mg/dL) (75-99) mg/dL Assessment and Plan (1) Epigastric pain Narrative/Plan: Elevated pancreatic enzymes on admission suspect subacute pancreatitis secondary to suspected peptic ulcer disease status post EGD with findings of prepyloric nonbleeding ulcer status post biopsies. Status: Acute Plan: 1. Discharge per medicine. Upon discharge omeprazole 40 mg daily. Diet as tolerated. Return to office in 7-10 days for reevaluation and discussion of biopsies. Assessment and plan of care discussed with Dr. Nazario
[2017-04-11] MEDS: SODIUM CHLORIDE 0.9% 1,000 ML IV SCH ×3 (10:47→20:52)
[2017-04-11 11:54] LABS: Glucose,Whole Blood 144 mg/dL (75-99)
--- NOTE | 2017-04-11 12:31 | P.PN ---
Subjective Principal diagnosis: 1. Acute pancreatitis presumed choledocholithiasis 04/10/2017 2. [id number]/2/2017 New 1. ORALIA due to dehydration 2. Prepyloric ulcer with antral deformity 3. Acute pancreatitis unclear etiology may be medication related Patient was seen and evaluated this morning. Complaining of nasal congestion and cough. No fever, chills or rigors. Abdominal pain improving. No associated nausea or emesis. Patient had EGD only no ERCP. She was counseled on dietary restrictions for both ulcer and pancreatitis. Patient understands that biopsy results are pending and will be followed up as out patient. She is not feeling as good today as yesterday. Discussed with patient that if she has increasing abdominal pain today will need to go back to NPO. Objective - Vital Signs Vital signs: Vital Signs Temp 99.0 F 04/11/17 07:00 Pulse 72 04/11/17 08:21 Resp 16 04/11/17 07:00 BP 134/82 04/11/17 07:00 Pulse Ox 98 04/11/17 07:00 Intake & Output 04/10/17 04/11/17 04/11/17 18:59 06:59 18:59 Intake Total 400 1000 320 Balance 400 1000 320 Weight 108.86 kg Intake: IV 400 Oral 1000 320 Other: Voiding Method Bedside Commode # Voids 0 # Bowel Movements 3 1 - Labs CBC & Chem 7: 04/11/17 07:31 04/11/17 07:31 Labs: Abnormal Lab Results - Last 24 Hours (Table) 04/10/17 04/10/17 04/10/17 Range/Units 12:31 16:55 20:40 RBC (3.80-5.40) m/uL Hgb (11.4-16.0) gm/dL Hct (34.0-46.0) % Eosinophils # (0-0.7) k/uL BUN (7-17) mg/dL Creatinine (0.52-1.04) mg/dL POC Glucose (mg/dL) 193 H 248 H 105 H (75-99) mg/dL 04/11/17 04/11/17 04/11/17 Range/Units 07:31 07:31 11:44 RBC 3.56 L (3.80-5.40) m/uL Hgb 10.6 L (11.4-16.0) gm/dL Hct 32.5 L (34.0-46.0) % Eosinophils # 0.9 H (0-0.7) k/uL BUN 38 H (7-17) mg/dL Creatinine 2.39 H (0.52-1.04) mg/dL POC Glucose (mg/dL) 144 H (75-99) mg/dL Assessment and Plan (1) Diarrhea Status: Acute (2) Diabetes mellitus type 2 in obese Status: Acute (3) Acute pancreatitis Status: Acute (4) Dehydration Status: Acute Plan: 1. ORALIA worse, suspect multifactorial: Dehydration + Medication * STOP Zestoretic * Normal saline 150 cc/hr x 24 hours * repeat BMP in am 2. Prepyloric ulcer with antral deformity * PPI BID * Follow up with GI as outpatient * Dietary consult 3. Upper Respiratory symptoms * Flonase 4. Disposition: Hydrate, discontinue all nephrotoxic medications, repeat am labs. Not ready for discharge today, needs down trend or stabilization of creatinine Time with Patient: Greater than 30
[2017-04-11 17:45] LABS: Glucose,Whole Blood 171 mg/dL (75-99)
[2017-04-11] MEDS: ALPRAZolam 0.5 MG TAB PO SCH (20:52)
[2017-04-11 21:16] LABS: Glucose,Whole Blood 91 mg/dL (75-99)
[2017-04-12] MEDS: SODIUM CHLORIDE 0.9% 1,000 ML IV SCH ×6 (02:35→20:43)
[2017-04-12 07:36] LABS: Glucose,Whole Blood 84 mg/dL (75-99)
[2017-04-12] MEDS: INSULIN LISPRO (humaLOG) 300 UNIT/3 ML VIAL SQ SCH ×4 (07:37→21:30)
[2017-04-12] MEDS: INSULN ASP PRT/INSULIN ASPART 100 UNIT/ML 10 ML VIAL SQ SCH ×2 (08:14→17:56)
[2017-04-12] MEDS: amLODIPine 10 MG TAB PO SCH (08:18)
[2017-04-12] MEDS: CITALOPRAM HYDROBROMIDE 20 MG TAB PO SCH (08:18)
[2017-04-12] MEDS: FLUTICASONE 50MCG/SPRAY NASAL 16GM EA NOSTRIL SCH (08:18)
[2017-04-12] MEDS: METOPROLOL TARTRATE 50 MG TAB PO SCH ×2 (08:18→17:56)
[2017-04-12] MEDS: PANTOPRAZOLE 40 MG/10 ML VIAL IV SCH (08:18)
[2017-04-12] MEDS: GABAPENTIN 300 MG CAP PO SCH ×3 (08:19→20:38)
[2017-04-12] MEDS: BUDESONIDE 1 MG/2 ML NEBU INHALATION SCH ×2 (09:48→20:01)
[2017-04-12] MEDS: ONDANSETRON 4 MG/2 ML VIAL IVP PRN ×2 (09:50→22:20)
--- NOTE | 2017-04-12 11:06 | P.PN ---
Subjective Progress Note Date: 04/12/17 Principal diagnosis: 1. Acute pancreatitis presumed choledocholithiasis 04/10/2017 2. Ymhtjvjs38/2/2017 New 04/11/2017 1. ORALIA due to dehydration 2. Prepyloric ulcer with antral deformity 3. Acute pancreatitis unclear etiology may be medication related New 04/12/2017 1. Intractable nausea with emesis this morning 2. Increased mid epigastric abdominal pain Patient was seen and evaluated this morning. She is feeling quite ill states that she is increasingly more nauseous this morning, had an episode of emesis. She states that her abdominal discomfort has increased in the midepigastric area and is worse than it has been in the past couple of days. She has not had any fevers chills or rigors, no chest pain or shortness of breath. She denies any melena or hematochezia. No increased urinary frequency or urgency. Objective - Vital Signs Vital signs: Vital Signs Temp 97.9 F 04/12/17 07:00 Pulse 72 04/12/17 07:00 Resp 16 04/12/17 07:00 BP 134/75 04/12/17 07:00 Pulse Ox 98 04/12/17 07:00 Intake & Output 04/11/17 04/12/17 04/12/17 18:59 06:59 18:59 Intake Total 520 Balance 520 Weight 108.86 kg Intake: Oral 520 Other: Voiding Method Bedside Commode # Voids 2 3 1 - Exam Constitutional: Looks ill, nauseated Eyes: Anicteric sclerae, moist conjunctiva, no lid-lag ENMT: NC/AT Oropharynx clear, no erythema, exudates Neck: Supple, FROM, no masses, or JVD No carotid bruits No thyromegaly Lungs: Clear to auscultation Clear to percussion Normal respiratory effort, no accessory muscle use Cardiovascular: Heart regular in rate and rhythm, No murmurs, gallops, or rubs No peripheral edema Abdominal: Soft Tenderness to palpation in mid epigastric region, no RT, no ridgity Skin: Normal temperature, tone, texture, turgor No induration Extremities: Cast right lower extremity. Left lower extremity without any edema/cyanosis or clubbing Psychiatric: Alert and oriented to person, place and time Appropriate affect Intact judgement Neuro: Alert oriented x 3,moves all 4 extremities spontaneously,CN 2-12 appear grossly intact - Labs CBC & Chem 7: 04/11/17 07:31 04/11/17 07:31 Labs: Abnormal Lab Results - Last 24 Hours (Table) 04/11/17 04/11/17 Range/Units 11:44 17:43 POC Glucose (mg/dL) 144 H 171 H (75-99) mg/dL Assessment and Plan (1) Diarrhea Status: Acute (2) Diabetes mellitus type 2 in obese Status: Acute (3) Acute pancreatitis Status: Acute (4) Dehydration Status: Acute Plan: 1. ORALIA worse, suspect multifactorial: Dehydration + Medication 2. Prepyloric ulcer with antral deformity 3. Upper Respiratory symptoms New 04/12/2017: 1. Acute intractable nausea and emesis with increased mid epigastric abdominal pain suspect secondary to recurrent pancreatitis: * Change to clear liquids, no food * IV antiemetics prn * Continue with IV fluids * Continue with PPI BID 2. ORALIA * BMP pending will follow up. Check BMP daily * continue with IV fluids 3. Disposition: Not ready for discharge today. STOP Diet, change to clear liquids. Continue with IVF. IV antiemetics PRN, check Lipase/amylase with labs Time with Patient: Greater than 30
[2017-04-12 12:13] LABS: Glucose,Whole Blood 143 mg/dL (75-99)
[2017-04-12 12:58] LABS: Amylase <30 U/L (30-110); Anion Gap 6 mmol/L; Blood Urea Nitrogen 29 mg/dL (7-17); Carbon Dioxide 22 mmol/L (22-30); Chloride 109 mmol/L (98-107); Glucose 131 mg/dL (74-99); Non-African American GFR(MDRD) 28 (>60 ml/min/1.73 sqM); Potassium 4.3 mmol/L (3.5-5.1); Sodium 137 mmol/L (137-145)
[2017-04-12 15:01] VITALS: RESP 18
[2017-04-12] MEDS: ALBUTEROL NEBULIZED 2.5 MG/3 ML INHALATION PRN ×2 (15:29→20:01)
[2017-04-12 17:19] LABS: Glucose,Whole Blood 200 mg/dL (75-99)
[2017-04-12] MEDS: ALPRAZolam 0.5 MG TAB PO SCH (20:38)
[2017-04-12 21:26] LABS: Glucose,Whole Blood 61 mg/dL (75-99)
[2017-04-12 22:02] LABS: Glucose,Whole Blood 67 mg/dL (75-99)
[2017-04-12 22:11] LABS: Glucose,Whole Blood 75 mg/dL (75-99)
[2017-04-13 01:20] LABS: Glucose,Whole Blood 61 mg/dL (75-99)
[2017-04-13 01:36] LABS: Glucose,Whole Blood 76 mg/dL (75-99)
[2017-04-13 03:31] LABS: Glucose,Whole Blood 76 mg/dL (75-99)
[2017-04-13] MEDS: SODIUM CHLORIDE 0.9% 1,000 ML IV SCH ×2 (03:40→11:28)
[2017-04-13] MEDS: BUDESONIDE 1 MG/2 ML NEBU INHALATION SCH (07:08)
[2017-04-13] MEDS: ALBUTEROL NEBULIZED 2.5 MG/3 ML INHALATION PRN ×2 (07:08→11:01)
[2017-04-13] MEDS: INSULIN LISPRO (humaLOG) 300 UNIT/3 ML VIAL SQ SCH ×2 (07:48→13:24)
[2017-04-13] MEDS: INSULN ASP PRT/INSULIN ASPART 100 UNIT/ML 10 ML VIAL SQ SCH (07:48)
[2017-04-13 08:00] LABS: Glucose,Whole Blood 100 mg/dL (75-99)
[2017-04-13] MEDS: METOPROLOL TARTRATE 50 MG TAB PO SCH (08:03)
[2017-04-13] MEDS: amLODIPine 10 MG TAB PO SCH (08:04)
[2017-04-13] MEDS: CITALOPRAM HYDROBROMIDE 20 MG TAB PO SCH (08:04)
[2017-04-13] MEDS: FLUTICASONE 50MCG/SPRAY NASAL 16GM EA NOSTRIL SCH (08:04)
[2017-04-13] MEDS: PANTOPRAZOLE 40 MG/10 ML VIAL IV SCH (08:05)
[2017-04-13] MEDS: GABAPENTIN 300 MG CAP PO SCH (08:05)
[2017-04-13] MEDS: ONDANSETRON 4 MG/2 ML VIAL IVP PRN (08:19)
[2017-04-13 08:22] LABS: Calcium 9.5 mg/dL (8.4-10.2); Potassium 3.9 mmol/L (3.5-5.1)
--- NOTE | 2017-04-13 10:15 | P.DS ---
Providers Date of admission: 04/08/17 17:24 Expected date of discharge: 04/13/17 Attending physician: Elvia Frey DO Primary care physician: Susan Galarza - Discharge Diagnosis(es) (1) Diarrhea Current Visit: Yes Status: Acute (2) Diabetes mellitus type 2 in obese Current Visit: Yes Status: Acute (3) Acute pancreatitis Current Visit: Yes Status: Acute (4) Dehydration Current Visit: Yes Status: Acute Hospital Course: This is a pleasant 52-year-old female who was admitted to our facility on 04/08 with: 1. Intractable nausea, vomiting with epigastric abdominal pain secondary to acute pancreatitis etiology not clear: This very pleasant female presented to our facility with complaints of intractable nausea vomiting and abdominal discomfort. The patient had a recent hospitalization at our facility on February 2017 for similar symptoms and was diagnosed with acute pancreatitis spontaneously resolved with conservative management. At that time it was felt to be related to gallstones and the patient had been discharged with outpatient gastroenterology follow-up recommended. The patient never went to her GI follow -up as she was feeling initially better, but then over the last couple weeks prior to presenting to our facility she started to experience some loose stools in addition to nausea with vomiting. As her symptoms progressively worsened with increasing mid epigastric abdominal discomfort she came into the emergency room for further evaluation and treatment. She had a computed tomography scan of the abdomen and pelvis that was negative for any acute abnormalities. She was admitted to the medical floor started on aggressive IV fluid hydration as well as proton pump inhibitor therapy and gastroenterology was consult. Dr. Nazario performed an EGD and she was found to have prepyloric ulcer with an abnormal appearing antrum. Biopsies were performed and are pending on discharge. The patient did not have any upstroke give labs suggestive of biliary disease. In reviewing her medications are Zestoretic was discontinued as this could rarely cause pancreatitis in some patients. She was slow to improve but eventually her nausea and vomiting resolved. The patient, however remained on of fairly bland clear liquid diet which she wanted to continue for another 24 hours before advancing to a low fat low acidic diet. Should the patient continued to have intermittent issues in the outpatient setting for nausea and vomiting and abdominal discomfort would consider working her up for diabetic gastroparesis . The patient's blood glucose levels were well controlled during this hospitalization however at home she normally eats a very high fat high carbohydrate diet. The automotive warranty administrator saw and evaluated the patient in consultation to counselor education professor her on dietary recommendations not just for her diabetes but also for her prepyloric ulcer disease and pancreatitis. 2. Acute kidney injury on CKD stage 3 suspect secondary to diabetic nephropathy: Patient's creatinine was significantly elevated from her usual baseline and peaked at 2.39 during this hospitalization. Her Zestoretic was discontinued and she was aggressively hydrated with intravenous fluids and her creatinine improved and was down to 1.74 which is closer to her usual home baseline. At this point I would recommend ongoing monitoring in the outpatient setting of her renal function. Should there be a desire to restart MEG inhibitor therapy would do so without the diuretic and at a lower dose. This can then be titrated as deemed clinically appropriate. Given her diabetes and MEG inhibitor would be appropriate for her renal health. 3. Prepyloric ulcer with Deformity of the antrum of unclear etiology: Patient was counseled that she will need to keep her appointment with gastroenterology to review her biopsy results. She should remain on proton pump inhibitor therapy twice a day dosing unless otherwise directed by a physician. 4. Diabetes mellitus type 2, insulin-dependent: The patient's blood glucose levels were well controlled during this hospitalization however we did have her on a restricted diet. Patient was counseled extensively on the need to have ongoing good dietary habits in the outpatient setting for better glycemic control. Would continue to counselor education professor as an outpatient. Would consider referral to diabetic education as an outpatient. She had no other acute medical issues and on 04/13/2017 was deemed to be subjectively and objectively stable for discharge to home. We appreciate the opportunity to have participated in your patient's care of you have any questions regarding this patient's hospitalization and discharge please feel free to page sound physician hospitalists. Patient Condition at Discharge: Stable Plan - Discharge Summary New Discharge Prescriptions: No Action Metoprolol Tartrate [Lopressor] 100 mg PO BID-W/MEALS Insulin Aspart Protam & Aspart [NovoLOG MIX 70-30 Flexpen] 35 unit SQ AC- BRKFST Beclomethasone Dipropionate [Qvar 80 mcg] 1 puff INHALATION RT-BID amLODIPine [Norvasc] 10 mg PO DAILY Ranitidine HCl [Zantac] 150 mg PO BID Lisinopril-Hctz 20-25 mg [Zestoretic 20-25] 1 tab PO DAILY Gabapentin 600 mg PO TID Citalopram Hydrobromide [CeleXA] 40 mg PO DAILY Albuterol Sulfate [Proair Hfa] 2 puff INHALATION RT-Q4H PRN PRN Reason: Shortness Of Breath Insulin Aspart Protam & Aspart [NovoLOG MIX 70-30 Flexpen] 25 unit SQ AC- SUPPER Hydrocodone/Acetaminophen [Sebago 5-325] 1 tab PO Q6HR PRN #20 tab PRN Reason: Pain Discharge Medication List Albuterol Sulfate [Proair Hfa] 2 puff INHALATION RT-Q4H PRN 02/25/17 [History] Beclomethasone Dipropionate [Qvar 80 mcg] 1 puff INHALATION RT-BID 02/25/17 [ History] Citalopram Hydrobromide [CeleXA] 40 mg PO DAILY 02/25/17 [History] Gabapentin 600 mg PO TID 02/25/17 [History] Insulin Aspart Protam & Aspart [NovoLOG MIX 70-30 Flexpen] 25 unit SQ AC-SUPPER 02/25/17 [History] Insulin Aspart Protam & Aspart [NovoLOG MIX 70-30 Flexpen] 35 unit SQ AC-BRKFST 02/25/17 [History] Metoprolol Tartrate [Lopressor] 100 mg PO BID-W/MEALS 02/25/17 [History] amLODIPine [Norvasc] 10 mg PO DAILY 02/25/17 [History] Hydrocodone/Acetaminophen [Sebago 5-325] 1 tab PO Q6HR PRN #20 tab 03/27/17 [Rx] Fluticasone Nasal [place] [Flonase Nasal [place]] 2 spray EA NOSTRIL DAILY spray [Rx] Omeprazole [PriLOSEC] 20 mg PO AC-BID #60 cap 04/13/17 [Rx] Follow up Appointment(s)/Referral(s): Ward Nazario MD [STAFF PHYSICIAN] - 1 Week Susan Galarza MD [Primary Care Provider] - 1-2 days Discharge Disposition: HOME SELF-CARE
[2017-04-13 12:54] LABS: Glucose,Whole Blood 107 mg/dL (75-99)
[2017-04-13 15:43] VITALS: BP 168/82; PULSE 73; TEMP 97.1
== END 2017-04-13 16:02 | disposition home or self-care (01) | DRG 439 ==
LOC: EC 15:12 → 4MS4W 17:24
PROVIDERS: ADMIT Emergency Medicine Emergency Medical Services; ATTEND Emergency Medicine Emergency Medical Services
PROC: 0DB68ZX Excision of Stomach, Via Natural or Artificial Opening Endoscopic, Diagnostic (ICD-10-PCS; principal; 2017-04-10 07:30)
DX: K85.90 Acute pancreatitis without necrosis or infection, unspecified (principal); N17.9 Acute kidney failure, unspecified; E11.21 Type 2 diabetes mellitus with diabetic nephropathy; N18.3 Chronic kidney disease, stage 3 (moderate); Z68.41 Body mass index [BMI] 40.0-44.9, adult; E11.22 Type 2 diabetes mellitus with diabetic chronic kidney disease; E11.319 Type 2 diabetes mellitus with unspecified diabetic retinopathy without macular edema; E11.36 Type 2 diabetes mellitus with diabetic cataract; E66.9 Obesity, unspecified; K44.9 Diaphragmatic hernia without obstruction or gangrene; K25.9 Gastric ulcer, unspecified as acute or chronic, without hemorrhage or perforation; E86.0 Dehydration; K86.1 Other chronic pancreatitis; K21.0 Gastro-esophageal reflux disease with esophagitis; J45.909 Unspecified asthma, uncomplicated; F32.9 Major depressive disorder, single episode, unspecified; F41.9 Anxiety disorder, unspecified; I12.9 Hypertensive chronic kidney disease with stage 1 through stage 4 chronic kidney disease, or unspecified chronic kidney disease; Z71.3 Dietary counseling and surveillance; Z79.4 Long term (current) use of insulin; Z79.899 Other long term (current) drug therapy; Z88.6 Allergy status to analgesic agent; Z88.5 Allergy status to narcotic agent; Z88.0 Allergy status to penicillin; Z88.2 Allergy status to sulfonamides; Z88.7 Allergy status to serum and vaccine; Z83.3 Family history of diabetes mellitus
CPT/HCPCS: 36415; 43239; 74176; 80048; 80053; 81001; 81025; 82150; 83036; 83690; 85025; 87324; 88305; 88342; 94640; 94760; 96361; 96374; 96375; 99285

== ENCOUNTER 2017-11-14 15:58 | Inpatient (IN) | payer BC, MEDICARE, OTHER ==
[2017-11-14] MEDS ORDERED: METOPROLOL SUCCINATE (ER) 100 MG TAB.ER.24H PO STA (16:34)
[2017-11-14] MEDS ORDERED: amLODIPine 10 MG TAB PO STA (16:34)
[2017-11-14] MEDS ORDERED: IPRATROPIUM-ALBUTEROL 3 ML NEB INHALATION STA (16:44)
[2017-11-14] MEDS ORDERED: methylPREDNISolone SOD SUCCI 125 MG/2 ML VIAL IV STA (16:44)
[2017-11-14] MEDS ORDERED: ONDANSETRON 4 MG/2 ML VIAL IVP STA (16:44)
--- NOTE | 2017-11-14 16:49 | ED ---
General Adult HPI - General Chief complaint: Shortness of Breath Stated complaint: asthma/poss bronchitis Time Seen by Provider: 11/14/17 16:29 Source: patient Mode of arrival: ambulatory Limitations: no limitations - History of Present Illness Initial comments: Patient is a 52-year-old female presents with the chief complaint of cough and shortness of breath. His bleeding going on for 2 days. Patient states that she had a sick contact that had vomiting and diarrhea for a few days but no upper respiratory symptoms. Patient cannot identify any other inciting incidences. No aggravating or alleviating factors. Patient complains of some chest tightness as well, she states her pain is worse when she coughs. She states that she is having productive sputum that is white in color. She has a significant history of asthma, and hypertension for which she has not taken any of her medications because she has been nauseated. - Related Data Home Medications Medication Instructions Recorded Confirmed Albuterol Sulfate [Proair Hfa] 2 puff INHALATION RT-Q4H PRN 02/25/17 11/14/17 Citalopram Hydrobromide [CeleXA] 40 mg PO DAILY 02/25/17 11/14/17 Gabapentin 600 mg PO TID 02/25/17 11/14/17 Insulin Aspart Protam & Aspart 25 unit SQ AC-SUPPER 02/25/17 11/14/17 [NovoLOG MIX 70-30 Flexpen] Insulin Aspart Protam & Aspart 35 unit SQ AC-BRKFST 02/25/17 11/14/17 [NovoLOG MIX 70-30 Flexpen] Metoprolol Tartrate [Lopressor] 100 mg PO BID 02/25/17 11/14/17 amLODIPine [Norvasc] 10 mg PO DAILY 02/25/17 11/14/17 Fluticasone Nasal [place] [Flonase 1 - 2 spray EA NOSTRIL DAILY PRN 08/15/1711/14 Nasal [place]] Albuterol Nebulized [Ventolin 2.5 mg INHALATION RT-QID PRN 11/14/17 11/14/17 Nebulized] Budesonide/Formoterol Fumarate 2 puff INHALATION RT-BID 11/14/17 11/14/17 [Symbicort 160-4.5 Mcg Inhaler] Cetirizine HCl [Zyrtec] 10 mg PO DAILY 11/14/17 11/14/17 Gemfibrozil [Lopid] 600 mg PO AC-BID 11/14/17 11/14/17 Insulin Aspart Protam & Aspart See Protocol SQ AC-BID 11/14/17 11/14/17 [NovoLOG MIX 70-30 Flexpen] Ondansetron HCl [Zofran] 8 mg PO BID PRN 11/14/17 11/14/17 Pantoprazole [Protonix] 40 mg PO DAILY 11/14/17 11/14/17 Zolpidem [Ambien] 10 mg PO HS 11/14/17 11/14/17 Allergies Allergy/AdvReac Type Severity Reaction Status Date / Time hydrocodone [From [place]] Allergy Hallucinati Verified 11/14/17 17:51 ons measles, mumps, and rubella Allergy Rash/Hives Verified 11/14/17 17:51 vaccine Penicillins Allergy Anaphylaxis Verified 11/14/17 17:51 Sulfa (Sulfonamide Allergy Anaphylaxis Verified 11/14/17 17:51 Antibiotics) Review of Systems ROS Statement: Those systems with pertinent positive or pertinent negative responses have been documented in the HPI. ROS Other: All systems not noted in ROS Statement are negative. Constitutional: Reports: chills Respiratory: Reports: cough, dyspnea, wheezes Cardiovascular: Reports: chest pain Gastrointestinal: Reports: nausea Past Medical History Past Medical History: Asthma, Diabetes Mellitus, GERD/Reflux, Hypertension Additional Past Medical History / Comment(s): diabetic retinopathy,lt eye has artifical lens and she has visual difficulty w/that eye pancreatitis, gastric ulcer, neuropathy bul bulmaro/feet, hiatal hernia History of Any Multi-Drug Resistant Organisms: None Reported Past Surgical History: Section, Uterine Ablation Additional Past Surgical History / Comment(s): left eye artificial lens, x4 c- sections,egd Past Anesthesia/Blood Transfusion Reactions: Postoperative Nausea & Vomiting ( PONV) Past Psychological History: Anxiety Smoking Status: Never smoker Past Alcohol Use History: None Reported Past Drug Use History: None Reported - Past Family History Father Family Medical History: Cancer, Diabetes Mellitus, Hypertension Additional Family Medical History / Comment(s): colon cancer Mother Family Medical History: Hypertension Additional Family Medical History / Comment(s): irreg heart beat, boarderline dm General Exam Limitations: no limitations General appearance: alert, in no apparent distress Head exam: Present: atraumatic, normocephalic Eye exam: Present: normal appearance ENT exam: Present: normal exam, mucous membranes moist Neck exam: Present: normal inspection Respiratory exam: Present: wheezes. Absent: stridor Cardiovascular Exam: Present: regular rate, normal rhythm GI/Abdominal exam: Present: soft. Absent: distended, tenderness Rectal exam: Present: deferred Extremities exam: Present: normal inspection Back exam: Present: normal inspection Neurological exam: Present: alert, oriented X3 Psychiatric exam: Present: normal affect, normal mood Skin exam: Present: warm, dry, intact Course Vital Signs 11/14/17 11/14/17 11/14/17 16:22 17:03 17:21 Temperature 98.4 F Pulse Rate 101 H 87 100 Respiratory 20 18 18 Rate Blood Pressure 265/132 O2 Sat by Pulse 98 Oximetry 11/14/17 11/14/17 11/14/17 17:32 18:00 19:23 Temperature 98.6 F Pulse Rate 102 H 104 H 102 H Respiratory 22 20 18 Rate Blood Pressure 185/102 202/123 240/112 O2 Sat by Pulse 98 99 Oximetry 11/14/17 11/14/17 11/14/17 19:58 20:09 20:15 Temperature Pulse Rate 98 97 82 Respiratory 18 18 18 Rate Blood Pressure 206/91 199/94 192/92 O2 Sat by Pulse 97 98 96 Oximetry 11/14/17 20:28 Temperature Pulse Rate Respiratory Rate Blood Pressure 218/120 O2 Sat by Pulse Oximetry Medical Decision Making - Medical Decision Making Patient is a 52-year-old female presents with chief complaint of cough and shortness of breath. On initial evaluation, patient is hypertensive otherwise vital signs are stable. Patient is in no acute distress. She is audibly wheezing when I enter the exam room. Patient will be given 3 DuoNeb treatments , Solu-Medrol, and Zofran. After patient was able to tolerate by mouth intake she'll be given her antihypertensives. Patient to be evaluated further with patient's labs, chest x-ray, EKG, and cardiac enzymes. Suspect bronchitis and asthma as etiology of her chest pain however given her hypertension and other comorbidities, we will rule out cardiac etiology. EKG performed at 16:55 shows NSR with a rate of 88 BPM. segments appear to be within normal limits. EKG otherwise unremarkable. 5:58 PM Patient reevaluated, air movement is improved, patient does mild wheezes but is coughing more. Overall respiratory status is improved. Lab evaluation thus far shows a negative troponin however patient's BNP is elevated at just over 2000. Chest x-ray shows no acute process. At this time we'll add on venous blood gas, and d-dimer to evaluate respiratory status and to rule out PE. 8:[address] PE shows no evidence of PE. Aorta is of normal calibar. there is cardiomegaly and pulmonary vascular congestion consistent with heart failure. on re-examination, patient BP still elevated over 220/110. patient still having chest pain. at this time, the decision was made to admit the patient for hypertensive emergency given her evidence of heart failure. I discussed this case with Dr. Lemons who accepts admission and Dr. Blanc as this patient is going to require an ICU bed. Dr. Blanc recommends Cleviprex infusion at a rate of 2mg/hr with titration. BP goal of 160 systolic until patient can acclimate to lower blood pressure. I suspect the patient is baseline hypertensive near 200 systolic. Patient is also on 3 antihypertensives and is at maximum dose for each with uncontrolled hypertension. Patient would benefit from evaluation for secondary causes of hypertension. I discussed the results and care plan with the patient. at this time, she is agreeable with admission. all necessary consults were notified, all questions answered to the best of my ability. patient stable for transfer to the ICU. - Lab Data Result diagrams: 11/14/17 16:50 11/14/17 16:50 Lab Results 11/14/17 11/14/17 11/14/17 Range/Units 16:50 16:50 16:50 WBC 6.9 (3.8-10.6) k/uL RBC 4.50 (3.80-5.40) m/uL Hgb 12.7 (11.4-16.0) gm/dL Hct 37.2 (34.0-46.0) % MCV 82.8 (80.0-100.0) fL MCH 28.3 (25.0-35.0) pg MCHC 34.2 (31.0-37.0) g/dL RDW 14.4 (11.5-15.5) % Plt Count 252 (150-450) k/uL Neutrophils % 64 % Lymphocytes % 15 % Monocytes % 4 % Eosinophils % 15 % Basophils % 1 % Neutrophils # 4.5 (1.3-7.7) k/uL Lymphocytes # 1.0 (1.0-4.8) k/uL Monocytes # 0.3 (0-1.0) k/uL Eosinophils # 1.0 H (0-0.7) k/uL Basophils # 0.1 (0-0.2) k/uL D-Dimer (<0.60) mg/L FEU VBG pH (7.31-7.41) VBG pCO2 (37-51) mmHg VBG HCO3 (24-28) mmol/L Sodium 143 (137-145) mmol/L Potassium 4.5 (3.5-5.1) mmol/L Chloride 107 (98-107) mmol/L Carbon Dioxide 19 L (22-30) mmol/L Anion Gap 17 mmol/L BUN 33 H (7-17) mg/dL Creatinine 1.70 H (0.52-1.04) mg/dL Est GFR (CKD-EPI)AfAm 40 (>60 ml/min/1.73 sqM) Est GFR (CKD-EPI)NonAf 35 (>60 ml/min/1.73 sqM) Glucose 212 H (74-99) mg/dL Calcium 10.6 H (8.4-10.2) mg/dL Troponin I (0.000-0.034) ng/mL NT-Pro-B Natriuret Pep pg/mL Influenza Type A RNA Not Detected (Not Detectd) Influenza Type B (PCR) Not Detected (Not Detectd) 11/14/17 11/14/17 11/14/17 Range/Units 16:50 16:50 18:05 WBC (3.8-10.6) k/uL RBC (3.80-5.40) m/uL Hgb (11.4-16.0) gm/dL Hct (34.0-46.0) % MCV (80.0-100.0) fL MCH (25.0-35.0) pg MCHC (31.0-37.0) g/dL RDW (11.5-15.5) % Plt Count (150-450) k/uL Neutrophils % % Lymphocytes % % Monocytes % % Eosinophils % % Basophils % % Neutrophils # (1.3-7.7) k/uL Lymphocytes # (1.0-4.8) k/uL Monocytes # (0-1.0) k/uL Eosinophils # (0-0.7) k/uL Basophils # (0-0.2) k/uL D-Dimer (<0.60) mg/L FEU VBG pH 7.42 H (7.31-7.41) VBG pCO2 31 L (37-51) mmHg VBG HCO3 20 L (24-28) mmol/L Sodium (137-145) mmol/L Potassium (3.5-5.1) mmol/L Chloride (98-107) mmol/L Carbon Dioxide (22-30) mmol/L Anion Gap mmol/L BUN (7-17) mg/dL Creatinine (0.52-1.04) mg/dL Est GFR (CKD-EPI)AfAm (>60 ml/min/1.73 sqM) Est GFR (CKD-EPI)NonAf (>60 ml/min/1.73 sqM) Glucose (74-99) mg/dL Calcium (8.4-10.2) mg/dL Troponin I 0.025 (0.000-0.034) ng/mL NT-Pro-B Natriuret Pep 2120 pg/mL Influenza Type A RNA (Not Detectd) Influenza Type B (PCR) (Not Detectd) 11/14/17 11/14/17 Range/Units 18:05 19:27 WBC (3.8-10.6) k/uL RBC (3.80-5.40) m/uL Hgb (11.4-16.0) gm/dL Hct (34.0-46.0) % MCV (80.0-100.0) fL MCH (25.0-35.0) pg MCHC (31.0-37.0) g/dL RDW (11.5-15.5) % Plt Count (150-450) k/uL Neutrophils % % Lymphocytes % % Monocytes % % Eosinophils % % Basophils % % Neutrophils # (1.3-7.7) k/uL Lymphocytes # (1.0-4.8) k/uL Monocytes # (0-1.0) k/uL Eosinophils # (0-0.7) k/uL Basophils # (0-0.2) k/uL D-Dimer 0.62 H (<0.60) mg/L FEU VBG pH (7.31-7.41) VBG pCO2 (37-51) mmHg VBG HCO3 (24-28) mmol/L Sodium (137-145) mmol/L Potassium (3.5-5.1) mmol/L Chloride (98-107) mmol/L Carbon Dioxide (22-30) mmol/L Anion Gap mmol/L BUN (7-17) mg/dL Creatinine (0.52-1.04) mg/dL Est GFR (CKD-EPI)AfAm (>60 ml/min/1.73 sqM) Est GFR (CKD-EPI)NonAf (>60 ml/min/1.73 sqM) Glucose (74-99) mg/dL Calcium (8.4-10.2) mg/dL Troponin I 0.029 (0.000-0.034) ng/mL NT-Pro-B Natriuret Pep pg/mL Influenza Type A RNA (Not Detectd) Influenza Type B (PCR) (Not Detectd) Critical Care Time Critical Care Time: Yes (managment of hypertensive emergency with initiation of Clevipex GGT ) Total Critical Care Time: 45 Disposition Clinical Impression: Congestive heart failure, Hypertensive emergency, Asthma exacerbation Disposition: ADMITTED IP TO THIS HOSP Condition: Fair Is patient prescribed a controlled substance at d/c from ED?: No Decision to Admit Reason: Admit from EC - Out of Hospital Transfer - Req. Specs Out of Hospital Transfer - Requested Specifics: Medical ICU
[2017-11-14 17:04] LABS: Basophils # (A) 0.1 k/uL (0-0.2); Basophils % (A) 1 %; Eosinophils % (A) 15 %; HCT 37.2 % (34.0-46.0); HGB 12.7 gm/dL (11.4-16.0); Lymphocytes % (A) 15 %; MCH 28.3 pg (25.0-35.0); MCHC 34.2 g/dL (31.0-37.0); MCV 82.8 fL (80.0-100.0); Mean Platelet Volume 6.8; Monocytes # (A) 0.3 k/uL (0-1.0); Monocytes % (A) 4 %; Neutrophils # (A) 4.5 k/uL (1.3-7.7); Neutrophils % (A) 64 %; Platelet Count 252 k/uL (150-450); RDW 14.4 % (11.5-15.5); WBC 6.9 k/uL (3.8-10.6)
[2017-11-14 17:18] LABS: Calcium 10.6 mg/dL (8.4-10.2); Potassium 4.5 mmol/L (3.5-5.1)
--- NOTE | 2017-11-14 17:27 | XR ---
EXAMINATION TYPE: XR chest 1V portable DATE OF EXAM: 11/14/2017 COMPARISON: NONE HISTORY: Short of breath and cough TECHNIQUE: Single frontal view of the chest is obtained. FINDINGS: Heart and mediastinum are normal. Lungs are clear. Diaphragm is normal. There are chest le ads. IMPRESSION: No active cardiopulmonary disease.
[2017-11-14 18:14] LABS: VBG PH 7.42 (7.31-7.41)
[2017-11-14] MEDS ORDERED: RX INFO: IV CONTRAST WAS GIVEN 1 EACH MISC MISCELLANE PRN (18:27)
[2017-11-14] MEDS ORDERED: SODIUM CHLORIDE 0.9% 500 ML IV ONE (18:56)
[2017-11-14] MEDS ORDERED: NITROGLYCERIN-D5W PMX 50 MG in DEXTROSE/WATER 1 250ML.BAG IV ONE (19:31)
--- NOTE | 2017-11-14 19:39 | CT ---
EXAMINATION TYPE: CT chest angio for PE DATE OF EXAM: 11/14/2017 COMPARISON: NONE HISTORY: Patient complains of chest pain. CT DLP: 518 mGycm Automated exposure control for dose reduction was used. CONTRAST: CT Chest for pulmonary embolism performed with with IV Contrast, patient injected with 80 mL of Isovu e 370. FINDINGS: There is coarsening of pulmonary interstitial markings. There is no evidence of a pulmonary mass. The re is no pleural effusion. There is a small hiatal hernia. Heart appears enlarged. The thoracic aorta appears normal without evidence of aneurysm or dissection. There is normal contrast opacification of the pulmonary arteries. I see no filling defect. There is no mediastinal adenopathy. There are a few bronchial and mediastinal lymph nodes that measure up to 1 cm. The bony thorax appears intact. There is some spurring in the thoracic spine. IMPRESSION: No evidence of pulmonary embolism. Nonspecific mediastinal and bronchial lymph nodes. Cardiomegaly. I nterstitial pulmonary density could relate to mild congestion or fibrosis.
[2017-11-14] MEDS ORDERED: NALOXONE 0.4 MG/ML 1 ML VIAL IV PRN ×2 (19:58→20:57)
[2017-11-14] MEDS: CLEVIDIPINE BUTYRATE 25 MG in EMPTY BAG 1 BAG IV SCH ×3 (20:11→23:28)
[2017-11-14 20:45] LABS: Glucose,Whole Blood 269 mg/dL (75-99)
[2017-11-14] MEDS ORDERED: ONDANSETRON 4 MG/2 ML VIAL IVP PRN (20:57)
[2017-11-14] MEDS ORDERED: ALBUTEROL INHALER 60 PUFF/8 GM INHALER INHALATION PRN (21:02)
[2017-11-14 21:13] VITALS: BMI 44.9
--- NOTE | 2017-11-14 21:16 | P.HPIM ---
History of Present Illness H&P Date: 11/14/17 This 52-year-old female with past medical history of hypertension asthma was admitted to the hospital for shortness of breath that has been going for the last few days that has been getting worse associated with cough patient stated that she has not been taking her blood pressure medications for the last day or so denies any chest pain is not complaining of headaches or vomiting although she did have some nausea Patient was found to have systolic blood pressure above 200 ER and was started on nitro drip structural technician has been consulted Review of systems and systems has been reviewed all negative and positive findings as per HPI Past Medical History: Asthma, Diabetes Mellitus, GERD/Reflux, Hypertension Additional Past Medical History / Comment(s): diabetic retinopathy,lt eye has artifical lens and she has visual difficulty w/that eye pancreatitis, gastric ulcer, neuropathy bul bulmaro/feet, hiatal hernia History of Any Multi-Drug Resistant Organisms: None Reported Past Surgical History: Section, Uterine Ablation Additional Past Surgical History / Comment(s): left eye artificial lens, x4 c- sections,egd Past Anesthesia/Blood Transfusion Reactions: Postoperative Nausea & Vomiting ( PONV) Past Psychological History: Anxiety Smoking Status: Never smoker Past Alcohol Use History: None Reported Past Drug Use History: None Reported - Past Family History Father Family Medical History: Cancer, Diabetes Mellitus, Hypertension Additional Family Medical History / Comment(s): colon cancer Mother Family Medical History: Hypertension Additional Family Medical History / Comment(s): irreg heart beat, boarderline dm Constitutional: No acute distress, conversant, pleasant Eyes: Anicteric sclerae, moist conjunctiva, no lid-lag PERRLA ENMT: NC/AT Oropharynx clear, no erythema, exudates Neck: Supple, FROM, no masses, or JVD No carotid bruits No thyromegaly Lungs: Scattered wheezes bilaterally Cardiovascular: Heart regular in rate and rhythm, No murmurs, gallops, or rubs No peripheral edema Abdominal: Soft Nontender, no guarding, rebound or rigidity Abdomen moving with respiration Normoactive bowel sounds No hepatomegaly, No splenomegaly No palpable mass No abdominal wall hernia noted Skin: Normal temperature, tone, texture, turgor No induration No subcutaneous nodules No rash, lesions No ulcers Extremities: No digital cyanosis No clubbing mild edema bilaterally Psychiatric:Alert and oriented to person, place and time Appropriate affect Intact judgement Neuro: Muscles Strength 5/5 in all 4 extremities Sensation to light touch grossly present throughout Cranial nerves II-XII grossly intact No focal sensory deficits Laboratory Results - last 24 hr 11/14/17 11/14/17 11/14/17 16:50 16:50 16:50 WBC 6.9 RBC 4.50 Hgb 12.7 Hct 37.2 MCV 82.8 MCH 28.3 MCHC 34.2 RDW 14.4 Plt Count 252 Neutrophils % 64 Lymphocytes % 15 Monocytes % 4 Eosinophils % 15 Basophils % 1 Neutrophils # 4.5 Lymphocytes # 1.0 Monocytes # 0.3 Eosinophils # 1.0 H Basophils # 0.1 D-Dimer VBG pH VBG pCO2 VBG HCO3 Sodium 143 Potassium 4.5 Chloride 107 Carbon Dioxide 19 L Anion Gap 17 BUN 33 H Creatinine 1.70 H Est GFR (CKD-EPI)AfAm 40 Est GFR (CKD-EPI)NonAf 35 Glucose 212 H POC Glucose (mg/dL) POC Glu Recorder [employer] Prospecting ID Calcium 10.6 H Troponin I NT-Pro-B Natriuret Pep Influenza Type A RNA Not Detected Influenza Type B (PCR) Not Detected 11/14/17 11/14/17 11/14/17 16:50 16:50 18:05 WBC RBC Hgb Hct MCV MCH MCHC RDW Plt Count Neutrophils % Lymphocytes % Monocytes % Eosinophils % Basophils % Neutrophils # Lymphocytes # Monocytes # Eosinophils # Basophils # D-Dimer VBG pH 7.42 H VBG pCO2 31 L VBG HCO3 20 L Sodium Potassium Chloride Carbon Dioxide Anion Gap BUN Creatinine Est GFR (CKD-EPI)AfAm Est GFR (CKD-EPI)NonAf Glucose POC Glucose (mg/dL) POC Glu Recorder [employer]ing ID Calcium Troponin I 0.025 NT-Pro-B Natriuret Pep 2120 Influenza Type A RNA Influenza Type B (PCR) 11/14/17 11/14/17 11/14/17 18:05 19:27 20:43 WBC RBC Hgb Hct MCV MCH MCHC RDW Plt Count Neutrophils % Lymphocytes % Monocytes % Eosinophils % Basophils % Neutrophils # Lymphocytes # Monocytes # Eosinophils # Basophils # D-Dimer 0.62 H VBG pH VBG pCO2 VBG HCO3 Sodium Potassium Chloride Carbon Dioxide Anion Gap BUN Creatinine Est GFR (CKD-EPI)AfAm Est GFR (CKD-EPI)NonAf Glucose POC Glucose (mg/dL) 269 H POC Glu Recorder [employer] ID Man, Timmy Calcium Troponin I 0.029 NT-Pro-B Natriuret Pep Influenza Type A RNA Influenza Type B (PCR) Vital Signs Temp Pulse Resp BP Pulse Ox 98.4 F 101 H 20 265/132 98 11/14/17 16:22 11/14/17 16:22 11/14/17 16:22 11/14/17 16:22 11/14/17 16:22 Assessment and plan Hypertensive urgency patient has been started on nitro drip and admitted to the intensive care unit adjustment as per structural technician Shortness of breath likely multifactorial due to hypertensive urgency and asthma exacerbation also there is a competent/CHF we'll hold Lasix at this time due to the duration creatinine computed tomography scan was ordered by ER and did not show any PE No evidence of acute coronary syndrome at this time computed tomography scan showed cardiomegaly will consult cardiology Asthma exacerbation we'll start the patient on Solu-Medrol and empiric antibiotics for acute bronchitis Lower extremity swelling will check Doppler ultrasound consider IV Lasix currently will not start Lasix due to the elevation in creatinine will consult nephrology Past Medical History Past Medical History: Asthma, Diabetes Mellitus, GERD/Reflux, Hypertension Additional Past Medical History / Comment(s): diabetic retinopathy,lt eye has artifical lens and she has visual difficulty w/that eye pancreatitis, gastric ulcer, neuropathy bul bulmaro/feet, hiatal hernia History of Any Multi-Drug Resistant Organisms: None Reported Past Surgical History: Section, Uterine Ablation Additional Past Surgical History / Comment(s): left eye artificial lens, x4 c- sections,egd Past Anesthesia/Blood Transfusion Reactions: Postoperative Nausea & Vomiting ( PONV) Past Psychological History: Anxiety Smoking Status: Never smoker Past Alcohol Use History: None Reported Past Drug Use History: None Reported - Past Family History Father Family Medical History: Cancer, Diabetes Mellitus, Hypertension Additional Family Medical History / Comment(s): colon cancer Mother Family Medical History: Hypertension Additional Family Medical History / Comment(s): irreg heart beat, boarderline dm Medications and Allergies Home Medications Medication Instructions Recorded Confirmed Type Albuterol Sulfate [Proair Hfa] 2 puff INHALATION RT-Q4H PRN 02/25/17 11/14/17 History Citalopram Hydrobromide [CeleXA] 40 mg PO DAILY 02/25/17 11/14/17 History Gabapentin 600 mg PO TID 02/25/17 11/14/17 History Insulin Aspart Protam & Aspart 25 unit SQ AC-SUPPER 02/25/17 11/14/17 History [NovoLOG MIX 70-30 Flexpen] Insulin Aspart Protam & Aspart 35 unit SQ AC-BRKFST 02/25/17 11/14/17 History [NovoLOG MIX 70-30 Flexpen] Metoprolol Tartrate [Lopressor] 100 mg PO BID 02/25/17 11/14/17 History amLODIPine [Norvasc] 10 mg PO DAILY 02/25/17 11/14/17 History Fluticasone Nasal [place] [Flonase 1 - 2 spray EA NOSTRIL DAILY PRN 08/15/1711/14 History Nasal [place]] Albuterol Nebulized [Ventolin 2.5 mg INHALATION RT-QID PRN 11/14/17 11/14/17 History Nebulized] Budesonide/Formoterol Fumarate 2 puff INHALATION RT-BID 11/14/17 11/14/17 History [Symbicort 160-4.5 Mcg Inhaler] Cetirizine HCl [Zyrtec] 10 mg PO DAILY 11/14/17 11/14/17 History Gemfibrozil [Lopid] 600 mg PO AC-BID 11/14/17 11/14/17 History Insulin Aspart Protam & Aspart See Protocol SQ AC-BID 11/14/17 11/14/17 History [NovoLOG MIX 70-30 Flexpen] Ondansetron HCl [Zofran] 8 mg PO BID PRN 11/14/17 11/14/17 History Pantoprazole [Protonix] 40 mg PO DAILY 11/14/17 11/14/17 History Zolpidem [Ambien] 10 mg PO HS 11/14/17 11/14/17 History Allergies Allergy/AdvReac Type Severity Reaction Status Date / Time hydrocodone [From [place]] Allergy Hallucinati Verified 11/14/17 17:51 ons measles, mumps, and rubella Allergy Rash/Hives Verified 11/14/17 17:51 vaccine Penicillins Allergy Anaphylaxis Verified 11/14/17 17:51 Sulfa (Sulfonamide Allergy Anaphylaxis Verified 11/14/17 17:51 Antibiotics) Physical Exam Vitals: Vital Signs Temp Pulse Resp BP Pulse Ox 11/14/17 20:28 218/120 11/14/17 20:15 82 18 192/92 96 11/14/17 20:09 97 18 199/94 98 11/14/17 19:58 98 18 206/91 97 11/14/17 19:23 98.6 F 102 H 18 240/112 99 11/14/17 18:00 104 H 20 202/123 11/14/17 17:32 102 H 22 185/102 98 11/14/17 17:21 100 18 11/14/17 17:03 87 18 11/14/17 16:22 98.4 F 101 H 20 265/132 98 Intake and Output 11/14/17 11/14/17 11/14/17 06:59 14:59 22:59 Intake Total 6.733 Balance 6.733 Intake: Intake, IV Titration 6.733 Amount Clevidipine Butyrate 25 6.733 mg In Empty Bag 1 bag @ 1 MG/HR 2 mls/hr IV .Q24H [facility] Rx#:[id number] Other: Weight 111.13 kg Results CBC & Chem 7: 11/14/17 16:50 11/14/17 16:50 Labs: Abnormal Lab Results - Last 24 Hours (Table) 11/14/17 11/14/17 11/14/17 Range/Units 16:50 16:50 18:05 Eosinophils # 1.0 H (0-0.7) k/uL D-Dimer (<0.60) mg/L FEU VBG pH 7.42 H (7.31-7.41) VBG pCO2 31 L (37-51) mmHg VBG HCO3 20 L (24-28) mmol/L Carbon Dioxide 19 L (22-30) mmol/L BUN 33 H (7-17) mg/dL Creatinine 1.70 H (0.52-1.04) mg/dL Glucose 212 H (74-99) mg/dL POC Glucose (mg/dL) (75-99) mg/dL Calcium 10.6 H (8.4-10.2) mg/dL 11/14/17 11/14/17 Range/Units 18:05 20:43 Eosinophils # (0-0.7) k/uL D-Dimer 0.62 H (<0.60) mg/L FEU VBG pH (7.31-7.41) VBG pCO2 (37-51) mmHg VBG HCO3 (24-28) mmol/L Carbon Dioxide (22-30) mmol/L BUN (7-17) mg/dL Creatinine (0.52-1.04) mg/dL Glucose (74-99) mg/dL POC Glucose (mg/dL) 269 H (75-99) mg/dL Calcium (8.4-10.2) mg/dL Thrombosis Risk Factor Assmnt - Choose All That Apply Any of the Below Risk Factors Present?: Yes Each Factor Represents 1 point: Age 41-60 years, Heart failure (<1month), Obesity (BMI >25) Other Risk Factors: No Other congenital or acquired thrombophilia - If yes, enter type in comment: No Thrombosis Risk Factor Assessment Total Risk Factor Score: 3 Thrombosis Risk Factor Assessment Level: Moderate Risk
[2017-11-14] MEDS ORDERED: LEVOFLOXACIN 500MG-D5W PMX 500 MG in DEXTROSE/WATER 1 100ML.BAG IVPB SCH (22:00)
[2017-11-14] MEDS: INSULN ASP PRT/INSULIN ASPART 100 UNIT/ML 10 ML VIAL SQ SCH (22:13)
[2017-11-14] MEDS: INSULIN ASPART 100 UNIT/ML 1 ML 10 ML VIAL SQ SCH (22:13)
[2017-11-14] MEDS: METOPROLOL TARTRATE 50 MG TAB PO SCH (22:14)
[2017-11-14] MEDS: cloNIDine HCL 0.1 MG TAB PO SCH (22:14)
[2017-11-14] MEDS: ZOLPIDEM 10 MG TAB PO SCH (22:14)
[2017-11-14] MEDS: GABAPENTIN 300 MG CAP PO SCH (22:14)
[2017-11-15] MEDS: CLEVIDIPINE BUTYRATE 25 MG in EMPTY BAG 1 BAG IV SCH ×5 (01:05→14:35)
[2017-11-15 04:23] LABS: Basophils % (A) 0 %; Eosinophils # (A) 0.1 k/uL (0-0.7); Eosinophils % (A) 1 %; HGB 12.6 gm/dL (11.4-16.0); Lymphocytes # (A) 0.6 k/uL (1.0-4.8); Lymphocytes % (A) 6 %; MCH 28.2 pg (25.0-35.0); MCHC 33.1 g/dL (31.0-37.0); MCV 85.3 fL (80.0-100.0); Monocytes # (A) 0.2 k/uL (0-1.0); Monocytes % (A) 2 %; Neutrophils # (A) 8.6 k/uL (1.3-7.7); Neutrophils % (A) 91 %; Platelet Count 274 k/uL (150-450); RBC 4.45 m/uL (3.80-5.40); RDW 14.6 % (11.5-15.5); WBC 9.5 k/uL (3.8-10.6)
[2017-11-15 04:37] LABS: Calcium 10.3 mg/dL (8.4-10.2); Magnesium 1.9 mg/dL (1.6-2.3); Phosphorus 3.5 mg/dL (2.5-4.5); Potassium 4.6 mmol/L (3.5-5.1); Total Bilirubin 0.2 mg/dL (0.2-1.3); Total Protein 7.7 g/dL (6.3-8.2)
[2017-11-15] MEDS: ALBUTEROL NEBULIZED 2.5 MG/3 ML INHALATION PRN ×2 (05:41→13:41)
[2017-11-15] MEDS: MAGNESIUM SULFATE-D5W PMX 1 GM in DEXTROSE/WATER 1 100ML.BAG IVPB SCH ×2 (06:36→07:59)
[2017-11-15] MEDS ORDERED: GEMFIBROZIL 600 MG TAB PO SCH (07:30)
[2017-11-15 07:35] LABS: Glucose,Whole Blood 283 mg/dL (75-99)
[2017-11-15] MEDS: INSULIN ASPART 100 UNIT/ML 1 ML 10 ML VIAL SQ SCH ×4 (07:59→20:43)
[2017-11-15] MEDS: INSULN ASP PRT/INSULIN ASPART 100 UNIT/ML 10 ML VIAL SQ SCH ×2 (07:59→17:39)
[2017-11-15] MEDS: PANTOPRAZOLE 40 MG TABLET PO SCH (08:00)
[2017-11-15] MEDS: CITALOPRAM HYDROBROMIDE 20 MG TAB PO SCH (08:00)
[2017-11-15] MEDS: amLODIPine 10 MG TAB PO SCH (08:00)
[2017-11-15] MEDS: LORATADINE 10 MG TAB PO SCH (08:01)
[2017-11-15] MEDS: cloNIDine HCL 0.1 MG TAB PO SCH ×3 (08:01→21:40)
[2017-11-15] MEDS: METOPROLOL TARTRATE 50 MG TAB PO SCH ×2 (08:02→20:20)
[2017-11-15] MEDS: GABAPENTIN 300 MG CAP PO SCH ×3 (08:02→21:40)
[2017-11-15] MEDS ORDERED: methylPREDNISolone SOD SUCCI 40 MG/ML 1 ML VIAL IV SCH (09:00)
[2017-11-15] MEDS ORDERED: LISINOPRIL 10 MG TAB PO SCH (09:00)
--- NOTE | 2017-11-15 09:10 | P.PN ---
Subjective Progress Note Date: 11/15/17 Patient is feeling much better today, reports that her shortness of breath is improved and that her wheezes are getting much better. She reports not feeling as tight in her chest, reports history of URI symptoms with nonproductive cough over the last 3 days, denies fevers chills or night sweats. Reports undergoing elevated blood pressures with her PCP Dr. Galarza as high as 180s systolically , Reports she was taken off lisinopril due to possibility that it was causing a flare of her pancreatitis. No Other acute events overnight other than patient being switched off Cardene and started on cleveprex Objective - Vital Signs Vital signs: Vital Signs Temp 98.5 F 11/15/17 04:00 Pulse 74 11/15/17 06:00 Resp 23 11/15/17 06:00 BP 168/88 11/15/17 06:00 Pulse Ox 93 L 11/15/17 06:00 Intake & Output 11/14/17 11/15/17 11/15/17 18:59 06:59 18:59 Intake Total 974.867 Balance 974.867 Weight 111.13 kg 112.8 kg Intake: IV 240 Levofloxacin 500Mg-D5w 100 Pmx 500 mg In Dextrose/ Water 1 100ml.bag @ 100 mls/hr IVPB HS [facility] Rx#: [id number] NS 140 Intake, IV Titration 224.867 Amount Clevidipine Butyrate 25 224.867 mg In Empty Bag 1 bag @ 1 MG/HR 2 mls/hr IV .Q24H [facility] Rx#:[id number] Oral 510 Other: Voiding Method Toilet # Voids 1 - Exam Constitutional: No acute distress, conversant, pleasant Eyes: Anicteric sclerae, moist conjunctiva, no lid-lag, PERRLA ENMT: NC/AT,Oropharynx clear, no erythema, exudates Neck:Supple, FROM, no masses, or JVD, No carotid bruits; No thyromegaly Lungs: Expiratory wheezes, diffusely, adequate aeration, Normal respiratory effort, no accessory muscle use Cardiovascular: Heart regular in rate and rhythm, No murmurs, gallops, or rubs no peripheral edema Abdominal: Soft Nontender, nom distended, no guarding, no rebound or rigidity, Normoactive bowel sounds No hepatomegaly, No splenomegaly, No palpable mass No abdominal wall hernia noted Skin: Normal temperature, tone, texture, turgor, No induration No subcutaneous nodules, No rash, lesions, No ulcers Extremities:No digital cyanosis No clubbing, Pedal pulses intact and symmetrical Radial pulses intact and symmetrical Normal gait and station, No calf tenderness Psychiatric: Alert and oriented to person, place and time, Appropriate affect Intact judgement Neuro: Muscles Strength 5/5 in all 4 extremities, Sensation to light touch grossly present throughout, Cranial nerves II-XII grossly intact. No focal sensory deficits - Labs CBC & Chem 7: 11/15/17 04:08 11/15/17 04:08 Labs: Abnormal Lab Results - Last 24 Hours (Table) 11/14/17 11/14/17 11/14/17 Range/Units 16:50 16:50 18:05 Neutrophils # (1.3-7.7) k/uL Lymphocytes # (1.0-4.8) k/uL Eosinophils # 1.0 H (0-0.7) k/uL D-Dimer (<0.60) mg/L FEU VBG pH 7.42 H (7.31-7.41) VBG pCO2 31 L (37-51) mmHg VBG HCO3 20 L (24-28) mmol/L Carbon Dioxide 19 L (22-30) mmol/L BUN 33 H (7-17) mg/dL Creatinine 1.70 H (0.52-1.04) mg/dL Glucose 212 H (74-99) mg/dL POC Glucose (mg/dL) (75-99) mg/dL Calcium 10.6 H (8.4-10.2) mg/dL 11/14/17 11/14/17 11/15/17 Range/Units 18:05 20:43 04:08 Neutrophils # 8.6 H (1.3-7.7) k/uL Lymphocytes # 0.6 L (1.0-4.8) k/uL Eosinophils # (0-0.7) k/uL D-Dimer 0.62 H (<0.60) mg/L FEU VBG pH (7.31-7.41) VBG pCO2 (37-51) mmHg VBG HCO3 (24-28) mmol/L Carbon Dioxide (22-30) mmol/L BUN (7-17) mg/dL Creatinine (0.52-1.04) mg/dL Glucose (74-99) mg/dL POC Glucose (mg/dL) 269 H (75-99) mg/dL Calcium (8.4-10.2) mg/dL 11/15/17 11/15/17 Range/Units 04:08 07:33 Neutrophils # (1.3-7.7) k/uL Lymphocytes # (1.0-4.8) k/uL Eosinophils # (0-0.7) k/uL D-Dimer (<0.60) mg/L FEU VBG pH (7.31-7.41) VBG pCO2 (37-51) mmHg VBG HCO3 (24-28) mmol/L Carbon Dioxide 18 L (22-30) mmol/L BUN 36 H (7-17) mg/dL Creatinine 1.90 H (0.52-1.04) mg/dL Glucose 265 H (74-99) mg/dL POC Glucose (mg/dL) 283 H (75-99) mg/dL Calcium 10.3 H (8.4-10.2) mg/dL Assessment and Plan (1) Hypertensive emergency Narrative/Plan: * Patient's blood pressure improved on cleveprex, continue metoprolol and Norvasc, d/c Clonidine will add chlorthalidone and losartan * We'll check echocardiogram re Nt pro BNP 3500 * Continue to monitor her blood pressures closely if continues to be elevated will consider adding aldactone Current Visit: Yes Status: Acute Code(s): I16.1 - HYPERTENSIVE EMERGENCY SNOMED Code(s): 311519430954297 (2) Asthma exacerbation Narrative/Plan: * Secondary to viral URI * CT of the chest negative for PE shows only nonspecific mediastinal and bronchial lymph nodes seen on previous imaging * No sign of infiltrates, DC Levaquin * Continue systemic steroids and scheduled and when necessary bronchodilator breathing treatments * Pulmonary following appreciate recommendations Current Visit: Yes Status: Acute Code(s): J45.901 - UNSPECIFIED ASTHMA WITH (ACUTE) EXACERBATION SNOMED Code(s): 353497177 (3) Chronic kidney disease, stage III (moderate) Narrative/Plan: * Baseline creatinine appears to be turning 1.7 and 1.9 likely secondary to hypertensive and diabetic nephropathy * Nephrology consult pending * Patient mildly acidotic Current Visit: Yes Status: Acute Code(s): N18.3 - CHRONIC KIDNEY DISEASE, STAGE 3 (MODERATE) SNOMED Code(s): 835164747 (4) Type 2 diabetes mellitus with hyperglycemia Narrative/Plan: * A1c pending, continue with Accu-Cheks with scheduled and correctional scale insulin * Also has neuropathy continue gabapentin Current Visit: Yes Status: Acute Code(s): E11.65 - TYPE 2 DIABETES MELLITUS WITH HYPERGLYCEMIA SNOMED Code(s): 812930240887823 Plan: Continue to monitor blood pressures and manage on oral and hypertensive, follow- up echocardiogram and consultants recommendations, anticipate discharge in 1-2 days
[2017-11-15] MEDS: LOSARTAN 50 MG TAB PO SCH (09:34)
[2017-11-15] MEDS: SYMBICORT 160-4.5 MCG INHALER INHALATION SCH ×2 (09:41→20:04)
[2017-11-15] MEDS: CHLORTHALIDONE 25 MG TAB PO SCH (10:12)
[2017-11-15] MEDS: HEPARIN SODIUM,PORCINE 5,000 UNIT/ML 1 ML VIAL SQ SCH ×3 (10:12→21:40)
--- NOTE | 2017-11-15 10:30 | US ---
EXAMINATION TYPE: US renals and bladder DATE OF EXAM: 11/15/2017 COMPARISON: 08/15/2017 CLINICAL HISTORY: phu . EXAM MEASUREMENTS: Right Kidney: 11.1 x 5.6 x 4.3 cm Left Kidney: 10.0 x 4.2 x 4.6 cm Right Kidney: Multiple probable cystic areas visualized within the renal pelvis, largest measuring 2. 3 x 2.1 x 2.0 cm Left Kidney: Cystic area visualized within the renal pelvis measuring 1.6 x 1.5 x 1.8 cm Bladder: wnl as visualized, not fully distended Bilateral Jets seen: No, bladder is not fully distended IMPRESSION: Multiple hypoechoic lesions within the kidneys which are limited in assessment due to technique. Do n ot meet the criteria of simple cysts which may be technical. Findings similar to the previous CT scan of 04/08/2017
--- NOTE | 2017-11-15 10:31 | US ---
EXAMINATION TYPE: US venous doppler duplex LE DATE OF EXAM: 11/15/2017 10:03 AM COMPARISON: NONE CLINICAL HISTORY: lower ext swelling ,ro dvt . SIDE PERFORMED: Bilateral TECHNIQUE: The lower extremity deep venous system is examined utilizing real time linear array sonog jf with graded compression, doppler sonography and color-flow sonography. VESSELS IMAGED: External Iliac Vein (EIV) Common Femoral Vein Deep Femoral Vein Greater Saphenous Vein * Femoral Vein Popliteal Vein Small Saphenous Vein * Proximal Calf Veins (* superficial vessels) Right Leg: Negative for DVT Left Leg: Negative for DVT IMPRESSION: 1. No diagnostic evidence of DVT as visualized.
--- NOTE | 2017-11-15 11:27 | ECHOF ---
Referral Reason:cardiomegaly, htn urgency MEASUREMENTS -------- HEIGHT: 157.5 cm WEIGHT: 112.5 kg BP: 184/87 IVSd: 1.8 cm (0.6 - 1.1) LVIDd: 3.5 cm (3.9 - 5.3) LVPWd: 2.1 cm (0.6 - 1.1) IVSs: 2.4 cm LVIDs: 2.3 cm LVPWs: 2.1 cm LAESV Index (A-L): 12.48 ml/m Ao Diam: 3.1 cm (2.0 - 3.7) AV Cusp: 2.0 cm (1.5 - 2.6) LA Diam: 4.2 cm (2.7 - 3.8) MV EXCURSION: 9.718 mm (> 18.000) MV EF SLOPE: 39 mm/s (70 - 150) EPSS: 0.7 cm MV E Jeet: 0.75 m/s MV DecT: 90 ms MV A Jeet: 1.19 m/s MV E/A Ratio: 0.64 RAP: 5.00 mmHg RVSP: 13.19 mmHg FINDINGS -------- Sinus rhythm. This was a technically good study. The left ventricular size is normal. There is severe concentric left ventricular hypertrophy. Ove rall left ventricular systolic function is normal with, an EF between 65 - 70 %. The right ventricle is normal in size and function. Normal LA size by volume 22+/-6 ml/m2. The right atrium is normal in size. The aortic valve is trileaflet, and appears structurally normal. No aortic stenosis or regurgitation. There is trace mitral regurgitation. Trace tricuspid regurgitation present. The right ventricular systolic pressure, as measured by Dopp ler, is 13.19mmHg. Pulmonic valve appears structurally normal. The aortic root size is normal. There is a trivial pericardial effusion present. CONCLUSIONS -------- 1. Sinus rhythm. 2. This was a technically good study. 3. The left ventricular size is normal. 4. There is severe concentric left ventricular hypertrophy. 5. Overall left ventricular systolic function is normal with, an EF between 65 - 70 %. 6. The right ventricle is normal in size and function. 7. Normal LA size by volume 22+/-6 ml/m2. 8. The right atrium is normal in size. 9. The aortic valve is trileaflet, and appears structurally normal. No aortic stenosis or regurgitati on. 10. There is trace mitral regurgitation. 11. Trace tricuspid regurgitation present. 12. The right ventricular systolic pressure, as measured by Doppler, is 13.19mmHg. 13. Pulmonic valve appears structurally normal. 14. The aortic root size is normal. 15. There is a trivial pericardial effusion present. SPACER TYPE BAR AND SEGMENT: Janna Watts RDCS
[2017-11-15 12:25] LABS: Glucose,Whole Blood 323 mg/dL (75-99)
[2017-11-15] MEDS ORDERED: INSULIN ASPART 100 UNIT/ML 1 ML 10 ML VIAL SQ ONE ×2 (12:40→20:34)
[2017-11-15] MEDS ORDERED: cloNIDine 0.3 MG/24HR PATCH 1 PATCH PATCH TRANSDERM SCH (13:00)
--- NOTE | 2017-11-15 13:07 | CONS ---
CONSULTATION REASON FOR CONSULT: Uncontrolled hypertension, renal failure. HISTORY OF PRESENT ILLNESS: Patient is a 62-year-old female with history of hypertension for a few years now. Patient states that her blood pressure had been fairly well controlled, although she did have high readings on and off. Lately, patient has had cough which was not improving and she felt her asthma was worsening for the last 4 days and came into the hospital. Initial blood pressure on admission to the hospital was 221/98. Patient is currently maintained on drip and his systolic blood pressure is about 150-140 mmHg systolic. At home, patient was on Lopressor and Norvasc. She states that she had been on lisinopril previously, but that was discontinued after her episode of pancreatitis. There is no history of flushing, headaches, excessive sweating. Patient denies use of any nonsteroidal anti-inflammatory agents. Patient had been using albuterol updraft treatments as well as Ventolin inhaler for the last 2-3 days prior to admission. PAST MEDICAL HISTORY: Obesity, asthma, hypertension, type 2 diabetes, gastroesophageal reflux disease, pancreatitis, hiatal hernia. PAST SURGICAL HISTORY: , uterine ablation. SOCIAL HISTORY: Negative for smoking, drugs abuse or alcohol abuse. MEDICATIONS: Prior to admission included Celexa, gabapentin, insulin, Norvasc, Flonase, Symbicort inhaler, Lopid, Zyrtec, Zofran, Protonix, Ambien. ALLERGIES: Include NORCO, PENICILLIN, SULFA. REVIEW OF SYSTEMS: As per HPI. Other systems negative. PHYSICAL EXAMINATION: Patient is comfortable, awake. She is not in any acute distress. She is alert and oriented x3. Blood pressure this morning was 153/77, heart rate 79 per minute. She is afebrile. Examination of the heart, S1, S2. Examination of the lungs, bilateral breath sounds are heard. No wheezing is heard. No crackles are heard. Abdomen is soft, obese. Examination of the lower extremities shows chronic skin changes. No significant edema is noted. PARTS ROOM ASSISTANT exam is grossly intact. LABS: Show sodium 138, potassium 4.6, CO2 is 18, BUN 36, serum creatinine 1.9, calcium was 10.3, hemoglobin 12.6 g/dL. Review of previous labs shows in February serum creatinine was 1.7-1.6 mg/dL in 2017. ASSESSMENT: 1. Acute kidney injury secondary to uncontrolled hypertension. Blood pressure is now better controlled. Patient has received a dose of MEG inhibitors and she will be started on angiotensin receptor vinicius tomorrow which we can continue given her significantly uncontrolled hypertension. A UA will be ordered and will check an ultrasound of the kidneys as well. 2. Mild hypercalcemia with previous history of hypercalcemia with a calcium of 10.4 in March of 2017. I will check a PTH level, serum and urine immunofixation and vitamin D level. 3. Uncontrolled hypertension. Rule out secondary causes. Check renal and levels. We will check an ultrasound of the kidneys to see if there are asymmetric kidneys with possible underlying renal artery stenosis. Continue with the MEG inhibitor/angiotensin receptor blockers for now, but I will hold off on the dose of Cozaar today as patient has already resumed lisinopril this morning. She can start from tomorrow. We will continue to wean down the drip. We can add hydralazine if blood pressure remains uncontrolled. 4. Asthma with exacerbation, maintained on steroids and updraft treatments. 5. Obesity. 6. Chronic kidney disease stage III as previous creatinine was 1.6-1.7 mg/dL in 2017. Etiology is possibly nephrosclerosis. PLAN: Check urinalysis. Check ultrasound of the kidneys. Hold off on Cozaar for today as patient already received lisinopril. We will repeat labs in a.m. If her calcium is worse, we will discontinue the thiazide diuretics. May continue with the chlorthalidone for now. I will also order a vitamin D level, PTH level in the serum and urine immunofixation for workup for the hypercalcemia. Thank you for the consultation. Will continue to follow the patient with you during her hospitalization. Check urine analysis. MMODL / IJN: [id number] /
--- NOTE | 2017-11-15 13:09 | P.CNPUL ---
History of Present Illness Consult date: 11/15/17 Reason for consult: asthma Chief complaint: Shortness of breath and hypertensive urgency History of present illness: A very pleasant 52-year-old obese female patient with known history of bronchial asthma maintained on Symbicort on outpatient basis. The patient is also known to have hypertension and she has been off her antihypertensive medication for a few days. She has been on a combination of Norvasc, lisinopril and metoprolol and outpatient basis. The patient came into the hospital yesterday because of worsening shortness of breath. She was getting progressive dyspnea chest tightness and wheezing and bronchospasm. She had also some limited cough and congestion. In general, her asthma has been under good control. She did not require frequent hospitalizations or any other care regarding asthma control. However, she reports to have difficulties with blood pressure control. Since her arrival to the hospital the patient was having elevated blood pressure with systolics . In emergency department the patient was started on Cleviprex drip for blood pressure control. This morning the blood pressures under better control. The patient will be started back on the oral antihypertensive medication. No chest pain. No angina. No swelling in lower extremities. The patient is diabetic. The patient has diabetic retinopathy and nephropathy. The patient is currently on steroids and the patient has developed some mild steroid-induced hyperglycemia. Troponins are minimally elevated and the proBNP level is 3500. Echocardiogram was also ordered. The echocardiogram showed an ejection fraction of 65%. No other significant abnormalities. There is evidence of severe concentric left ventricular hypertrophy consistent hypertensive heart disease. CT of the chest was done and the burst department and showed no acute abnormalities. There is some interstitial congestion related to fluids. Review of Systems Constitutional: Denies chills, Denies fever Eyes: bilateral blurred vision, denies bulging eye, denies decreased vision Ears: deny: decreased hearing, ear discharge, earache Ears, nose, mouth and throat: Reports as per HPI Cardiovascular: Reports dyspnea on exertion Respiratory: Reports cough, Reports dyspnea Genitourinary: Denies dysuria, Denies hematuria Musculoskeletal: Reports as per HPI Musculoskeletal: absent: ankle pain, ankle stiffness, ankle swelling Integumentary: Denies pruritus, Denies rash Neurological: Denies numbness, Denies weakness Psychiatric: Denies anxiety, Denies depression Endocrine: Denies fatigue, Denies weight change Hematologic/Lymphatic: Reports as per HPI Allergic/Immunologic: Reports as per HPI Past Medical History Past Medical History: Asthma, Diabetes Mellitus, GERD/Reflux, Hypertension Additional Past Medical History / Comment(s): Obesity, diabetes mellitus, diabetic nephropathy and retinopathy, previous history of pancreatitis, gastric ulcer, peripheral neuropathy, hiatal hernia, hypertension, bronchial asthma History of Any Multi-Drug Resistant Organisms: None Reported Past Surgical History: Section, Uterine Ablation Additional Past Surgical History / Comment(s): left eye artificial lens, x4 c- sections,egd Past Anesthesia/Blood Transfusion Reactions: Postoperative Nausea & Vomiting ( PONV) Past Psychological History: Anxiety Smoking Status: Never smoker Past Alcohol Use History: None Reported Past Drug Use History: None Reported - Past Family History Father Family Medical History: Cancer, Diabetes Mellitus, Hypertension Additional Family Medical History / Comment(s): colon cancer Mother Family Medical History: Hypertension Additional Family Medical History / Comment(s): irreg heart beat, [place] dm Medications and Allergies Home Medications Medication Instructions Recorded Confirmed Type Albuterol Sulfate [Proair Hfa] 2 puff INHALATION RT-Q4H PRN 02/25/17 11/14/17 History Citalopram Hydrobromide [CeleXA] 40 mg PO DAILY 02/25/17 11/14/17 History Gabapentin 600 mg PO TID 02/25/17 11/14/17 History Insulin Aspart Protam & Aspart 25 unit SQ AC-SUPPER 02/25/17 11/14/17 History [NovoLOG MIX 70-30 Flexpen] Insulin Aspart Protam & Aspart 35 unit SQ AC-BRKFST 02/25/17 11/14/17 History [NovoLOG MIX 70-30 Flexpen] Metoprolol Tartrate [Lopressor] 100 mg PO BID 02/25/17 11/14/17 History amLODIPine [Norvasc] 10 mg PO DAILY 02/25/17 11/14/17 History Fluticasone Nasal [place] [Flonase 1 - 2 spray EA NOSTRIL DAILY PRN 08/15/1711/14 History Nasal [place]] Albuterol Nebulized [Ventolin 2.5 mg INHALATION RT-QID PRN 11/14/17 11/14/17 History Nebulized] Budesonide/Formoterol Fumarate 2 puff INHALATION RT-BID 11/14/17 11/14/17 History [Symbicort 160-4.5 Mcg Inhaler] Cetirizine HCl [Zyrtec] 10 mg PO DAILY 11/14/17 11/14/17 History Gemfibrozil [Lopid] 600 mg PO AC-BID 11/14/17 11/14/17 History Insulin Aspart Protam & Aspart See Protocol SQ AC-BID 11/14/17 11/14/17 History [NovoLOG MIX 70-30 Flexpen] Ondansetron HCl [Zofran] 8 mg PO BID PRN 11/14/17 11/14/17 History Pantoprazole [Protonix] 40 mg PO DAILY 11/14/17 11/14/17 History Zolpidem [Ambien] 10 mg PO HS 11/14/17 11/14/17 History Allergies Allergy/AdvReac Type Severity Reaction Status Date / Time hydrocodone [From [place]] Allergy Hallucinati Verified 11/14/17 17:51 ons measles, mumps, and rubella Allergy Rash/Hives Verified 11/14/17 17:51 vaccine Penicillins Allergy Anaphylaxis Verified 11/14/17 17:51 Sulfa (Sulfonamide Allergy Anaphylaxis Verified 11/14/17 17:51 Antibiotics) Physical Exam Vitals: Vital Signs Temp Pulse Resp BP Pulse Ox 11/15/17 11:00 74 15 144/75 95 11/15/17 10:30 76 20 144/75 94 L 11/15/17 10:00 75 22 156/84 97 11/15/17 09:30 79 20 153/77 95 11/15/17 09:00 79 16 152/76 94 L 11/15/17 08:30 79 20 148/77 94 L 11/15/17 08:00 98.1 F 79 17 181/95 92 L 11/15/17 07:30 83 15 120/85 94 L 11/15/17 06:00 74 23 168/88 93 L 11/15/17 05:52 78 11/15/17 05:45 71 11/15/17 05:30 73 24 163/84 93 L 11/15/17 05:00 71 15 156/81 93 L 11/15/17 04:30 76 21 148/73 94 L 11/15/17 04:00 98.5 F 69 17 148/73 92 L 11/15/17 03:30 71 17 162/86 90 L 11/15/17 03:00 72 18 148/77 92 L 11/15/17 02:30 72 18 145/74 92 L 11/15/17 02:00 74 16 142/76 92 L 11/15/17 01:30 80 14 145/76 96 11/15/17 01:00 75 18 147/76 90 L 11/15/17 00:30 75 22 142/80 90 L 11/15/17 00:00 98.3 F 81 27 H 160/86 94 L 11/14/17 23:30 83 25 H 135/78 95 11/14/17 23:00 88 20 168/84 90 L 11/14/17 22:30 90 16 167/72 96 11/14/17 22:15 88 19 93 L 11/14/17 22:00 87 19 167/72 96 11/14/17 21:45 86 16 169/60 96 11/14/17 21:30 91 14 167/69 95 11/14/17 21:15 93 24 166/69 97 11/14/17 21:00 96 16 190/67 97 11/14/17 20:45 98.2 F 100 28 H 221/98 98 11/14/17 20:28 218/120 11/14/17 20:15 82 18 192/92 96 11/14/17 20:09 97 18 199/94 98 11/14/17 19:58 98 18 206/91 97 11/14/17 19:23 98.6 F 102 H 18 240/112 99 11/14/17 18:00 104 H 20 202/123 11/14/17 17:32 102 H 22 185/102 98 11/14/17 17:21 100 18 11/14/17 17:03 87 18 11/14/17 16:22 98.4 F 101 H 20 265/132 98 Intake and Output 11/14/17 11/15/17 11/15/17 22:59 06:59 14:59 Intake Total 242.466 732.401 604.533 Balance 242.466 732.401 604.533 Intake: IV 140 100 50 Levofloxacin 500Mg-D5w 100 Pmx 500 mg In Dextrose/ Water 1 100ml.bag @ 100 mls/hr IVPB [facility] Rx#: [id number] NS 40 100 50 Intake, IV Titration 42.466 182.401 74.533 Amount Clevidipine Butyrate 25 42.466 182.401 74.533 mg In Empty Bag 1 bag @ 1 MG/HR 2 mls/hr IV .Q24H [facility] Rx#:[id number] Oral 60 450 480 Other: Voiding Method Toilet Bedside Commode # Voids 1 1 1 Weight 111.5 kg 112.8 kg Gen. appearance the patient is calm comfortable likely distress. Resting comfortably in bed. No signs of any respiratory distress or use of accessory muscles of breathing. Head exam was generally normal. There was no scleral icterus or corneal arcus. Mucous membranes were moist. Neck was supple and without jugular venous distension, thyromegaly, or carotid bruits. Carotids were easily palpable bilaterally. There was no adenopathy. Patient has significant crowding of the posterior oropharynx and the patient has a Mallampati class IV Lung sounds are diminished bilaterally along with that there is diffuse expiratory wheezes heard throughout the lung li and prolongation of expiratory phase of breathing. Cardiac exam revealed the PMI to be normally situated and sized. The rhythm was regular and no extrasystoles were noted during several minutes of auscultation. The first and second heart sounds were normal and physiologic splitting of the second heart sound was noted. There were no murmurs, rubs, clicks, or gallops. Abdomen is obese soft nontender and organs cannot be accurately palpated Examination of the extremities revealed easily palpable radial, femoral and pedal pulses. There was no cyanosis, clubbing or edema. Neurologically awake and alert and is no focal neurological deficit Examination of the skin revealed no evidence of significant rashes, suspicious appearing nevi or other concerning lesions. Results - Laboratory Findings CBC and BMP: 11/15/17 04:08 11/15/17 04:08 PT/INR, D-dimer D-Dimer 0.62 mg/L FEU (<0.60) H 11/14/17 18:05 Abnormal lab findings: Abnormal Labs 11/14/17 11/14/17 11/14/17 16:50 16:50 18:05 Neutrophils # Lymphocytes # Eosinophils # 1.0 H D-Dimer VBG pH 7.42 H VBG pCO2 31 L VBG HCO3 20 L Carbon Dioxide 19 L BUN 33 H Creatinine 1.70 H Glucose 212 H POC Glucose (mg/dL) Calcium 10.6 H 11/14/17 11/14/17 11/15/17 18:05 20:43 04:08 Neutrophils # 8.6 H Lymphocytes # 0.6 L Eosinophils # D-Dimer 0.62 H VBG pH VBG pCO2 VBG HCO3 Carbon Dioxide BUN Creatinine Glucose POC Glucose (mg/dL) 269 H Calcium 11/15/17 11/15/17 11/15/17 04:08 07:33 12:10 Neutrophils # Lymphocytes # Eosinophils # D-Dimer VBG pH VBG pCO2 VBG HCO3 Carbon Dioxide 18 L BUN 36 H Creatinine 1.90 H Glucose 265 H POC Glucose (mg/dL) 283 H 323 H Calcium 10.3 H - Diagnostic Findings CT scan - chest: image reviewed Assessment and Plan Plan: Assessment 1 acute asthma exacerbation with secondary shortness of breath. 2 hypertensive urgency currently on Cleviprex drip for blood pressure control 3 hypertensive heart disease with concentric left ventricular hypertrophy 4 diabetes mellitus 5 diabetic retinopathy and nephropathy 6 chronic renal failure, stage III chronic kidney disease 7 morbidly obesity Plan In terms of acute asthma exacerbation, the patient on a combination of albuterol about treatments around the clock, DuoNeb liver seems around-the- clock and IV Solu-Medrol. The patient was started back on her Symbicort maintenance 160/4.5, 2 puffs twice a day. The patient is under better control in terms of the blood pressure. We'll continue the Cleviprex drip. Introduced oral antihypertensive medication including metoprolol 100 mg twice a day, Norvasc 10 mg by mouth daily, and Cozaar. We'll also use clonidine 0.1 mg by mouth 3 times a day for a tighter blood pressure control and gradually wean off the drip. She'll be kept in ICU for now. Add heparin subcu for DVT prophylaxis. Nephrology consultation. Cardiology consultation. We'll continue to follow.
--- NOTE | 2017-11-15 13:10 | CONS ---
CONSULTATION Mrs. Taylor is a 52-year-old female, who is seen for cardiac evaluation. This patient's medical record is reviewed and the patient examined. History was also obtained from the patient and the nurse. This patient has a past history of hypertension for many years, history of diabetes and history of asthma. The patient had symptoms of shortness of breath for last couple of days associated with cough and she did not take her blood pressure medications. She also took some medications for asthma and a cough and subsequently patient came to the emergency room. She was found to have a severely elevated blood pressure in the emergency room in the form of 200 systolic. In view of that, the patient was subsequently admitted with uncontrolled hypertension. The patient was having some shortness of breath. The patient was also having bilateral wheezing. The patient denied any chest pain. The patient has a history of diabetes, history of hypertension. There is no previous history of myocardial infarction. According to the patient, she is moderately active physically and usually with walking. She is not having any significant shortness of breath. PAST MEDICAL HISTORY: Includes a history of diabetic retinopathy, history of pancreatitis, hiatal hernia, section, uterine ablation, left eye artificial lens. SMOKING HISTORY: Patient was never a smoker. HOME MEDICATIONS: The patient's home medications included Lopressor 100 mg b.i.d., insulin Lopid 600 mg b.i.d., Celexa 40 mg daily, ProAir inhaler and Ventolin inhaler. Amlodipine 10 mg daily. PHYSICAL EXAMINATION: At present reveals a 52-year-old obesely built female who does not appear to be in any acute distress. The patient's blood pressure currently is 144/74 mmHg. At present, patient on IV clevidipine drip. HEENT examination is negative. Neck is supple. There is no increase in jugular venous pressure. Both the carotid pulses are felt. There is no bruit. Chest is symmetrical. Heart: The PMI is not felt. First and second heart sounds are heard. Lungs reveal bilateral scattered wheezes. Abdomen is soft. Liver and spleen not enlarged. Extremities: Peripheral pulsations are 2+. The patient's electrolytes are normal. Creatinine is 1.9. TSH was 0.96. The patient's proBNP level was 3500. Chest x-ray showed questionable minimal pulmonary venous congestion. The patient's echocardiogram shows severe degree of concentric left ventricular hypertrophy and normal left ventricular systolic function. The patient did not have any significant pulmonary hypertension. FINAL IMPRESSION: This patient is admitted with acute episode of asthmatic bronchitis and uncontrolled hypertension. Patient had not taken his medications. At present patient is comfortable. There is no evidence of any significant heart failure. We will put the patient currently on Catapres patch and try to wean her off the clevidipine drip. We will continue amlodipine, Lopressor and [place]. In view of the patient has a history of diabetes as well as a hypertension, I will recommend to treat the patient with a high dose statin, Lipitor 80 mg daily. MMODL / IJN: [id number] /
[2017-11-15 13:22] LABS: Hemoglobin A1C 8.6 % (4.0-6.0)
[2017-11-15 15:51] LABS: Appearance,Urine Cloudy (Clear); Bacteria,Urine Rare /hpf; Bilirubin,Urine Negative (Negative); Blood,Urine Negative (Negative); Budding Yeast,Urine Moderate /hpf; Color,Urine Yellow; Glucose,Urine (UA) 2+ (Negative); Ketones,Urine Negative (Negative); Leukocyte Esterase,Urine Negative (Negative); Mucus,Urine Rare /hpf; Nitrite,Urine Negative (Negative); PH, Urine 5.5 (5.0-8.0); Protein,Urine 2+ (Negative); RBC,Urine 5 /hpf (0-5); Squamous Epithelial Cell,Urine 3 /hpf (0-4); Urobilinogen,Urine <2.0 mg/dL (<2.0)
[2017-11-15] MEDS ORDERED: methylPREDNISolone SOD SUCCI 125 MG/2 ML VIAL IV SCH (16:00)
[2017-11-15 17:31] LABS: Glucose,Whole Blood 210 mg/dL (75-99)
[2017-11-15] MEDS: ACETAMINOPHEN TAB 325 MG TAB PO PRN (17:45)
[2017-11-15] MEDS: IPRATROPIUM-ALBUTEROL 3 ML NEB INHALATION PRN (20:04)
[2017-11-15 20:20] LABS: Glucose,Whole Blood 326 mg/dL (75-99)
[2017-11-15 20:48] LABS: Vitamin D 25 Hydroxy 12.9 ng/mL (30.0-100.0)
[2017-11-15] MEDS: ZOLPIDEM 10 MG TAB PO SCH (21:40)
[2017-11-15] MEDS: methylPREDNISolone SOD SUCCI 40 MG/ML 1 ML VIAL IV SCH (23:14)
[2017-11-16 02:17] LABS: Parathyroid Hormone Intact 76.9 pg/mL (14.0-72.0)
[2017-11-16 04:34] LABS: Basophils % (A) 0 %; Eosinophils % (A) 0 %; HCT 33.8 % (34.0-46.0); HGB 11.2 gm/dL (11.4-16.0); Lymphocytes # (A) 0.5 k/uL (1.0-4.8); Lymphocytes % (A) 5 %; MCHC 33.2 g/dL (31.0-37.0); MCV 84.5 fL (80.0-100.0); Mean Platelet Volume 6.8; Monocytes # (A) 0.2 k/uL (0-1.0); Monocytes % (A) 2 %; Neutrophils # (A) 8.5 k/uL (1.3-7.7); Neutrophils % (A) 93 %; Platelet Count 237 k/uL (150-450); RDW 14.3 % (11.5-15.5); WBC 9.2 k/uL (3.8-10.6)
[2017-11-16 04:46] LABS: Calcium 9.5 mg/dL (8.4-10.2); Magnesium 2.5 mg/dL (1.6-2.3); Potassium 4.9 mmol/L (3.5-5.1)
[2017-11-16] MEDS: ACETAMINOPHEN TAB 325 MG TAB PO PRN (06:37)
[2017-11-16 06:46] LABS: Glucose,Whole Blood 269 mg/dL (75-99)
[2017-11-16] MEDS: INSULIN ASPART 100 UNIT/ML 1 ML 10 ML VIAL SQ SCH ×4 (06:54→20:14)
[2017-11-16] MEDS: INSULN ASP PRT/INSULIN ASPART 100 UNIT/ML 10 ML VIAL SQ SCH ×2 (06:54→17:22)
[2017-11-16] MEDS: ALBUTEROL NEBULIZED 2.5 MG/3 ML INHALATION PRN (07:33)
[2017-11-16] MEDS: SYMBICORT 160-4.5 MCG INHALER INHALATION SCH ×2 (07:33→19:27)
--- NOTE | 2017-11-16 08:48 | CDI ---
Last Revision, June 2017 Documentation Clarification Form Date: 11/16/2017 8:36:00 AM From: Hilda Baca [facility], CCDS Admit Date: 11/14/2017 7:58:00 PM Patient Name: Alexandra Taylor Visit Number: [id number] Discharge Date: ATTENTION: The Clinical Documentation Specialists (CDI) and [facility] Coding Staff appreciate your assistance in clarifying documentation. Please respond to the clarification below the line at the bottom and electronically sign. The CDI & [facility] Coding staff will review the response and follow-up if needed. Please note: Queries are made part of the Legal Health Record. If you have any questions, please contact the author of this message via ITS. Dr. Declan Lemons: Patient is admitted with acute exacerbation of asthma, nos. Patient history/risk factors: Bronchial Asthma, Hypertension, Diabetes Mellitus with retinopathy & neuropathy. Clinical Indicators: Presented with SOB & elevated blood pressure, not taking BP meds due to nausea. Dyspnea, chest tightness, wheezing & bronchospasm, cough & congestion. Radiology: CXR: no cardiopulmonary disease. CT chest: no acute abnormalities. Vital Signs: T 98.4, P 101^, R 20 (sob, cough), BP 265/132^, PO 98 RA/2Lnc Treatment: INH, IV Zofran, IV solumedrol, IV fl bolus, IV Nitro, IV Clevidipine Home Medication: Symbicort, Antihypertensives. In your professional opinion, can you please further specify the following, if known? With: o Acute Exacerbation o Status asthmaticus o Acute lower respiratory infection o COPD (specify with or without exacerbation) o Chronic obstructive bronchitis o Other, please specify o Unable to determine Severity: o Mild intermittent o Mild persistent o Moderate persistent o Severe persistent o Other, please specify o Unable to determine Form or Type: o Cough variant o Childhood o Exercise induced bronchospasm o Extrinsic allergic o Idiosyncratic o Intrinsic nonallergic o Late-onset o Mixed o Other, please specify o Unable to determine Please continue to document in your progress notes and discharge summary in order to capture severity of illness and risk of mortality. Include clinical findings that support your diagnosis. acute exacerbation of moderate persistent bronchial asthma, extrinsic ALLERGIC MTDD
[2017-11-16] MEDS: CITALOPRAM HYDROBROMIDE 20 MG TAB PO SCH (09:12)
[2017-11-16] MEDS: amLODIPine 10 MG TAB PO SCH (09:12)
[2017-11-16] MEDS: PANTOPRAZOLE 40 MG TABLET PO SCH (09:12)
[2017-11-16] MEDS: CHLORTHALIDONE 25 MG TAB PO SCH (09:12)
[2017-11-16] MEDS: ATORVASTATIN 80 MG TAB PO SCH (09:12)
[2017-11-16] MEDS: HEPARIN SODIUM,PORCINE 5,000 UNIT/ML 1 ML VIAL SQ SCH ×3 (09:12→23:23)
[2017-11-16] MEDS: LORATADINE 10 MG TAB PO SCH (09:13)
[2017-11-16] MEDS: GABAPENTIN 300 MG CAP PO SCH ×3 (09:13→22:42)
[2017-11-16] MEDS: cloNIDine HCL 0.2 MG TAB PO SCH ×3 (09:13→22:43)
[2017-11-16] MEDS: LOSARTAN 50 MG TAB PO SCH (09:14)
[2017-11-16] MEDS: predniSONE 20 MG TAB PO SCH (09:14)
[2017-11-16] MEDS: METOPROLOL TARTRATE 50 MG TAB PO SCH (09:14)
[2017-11-16] MEDS ORDERED: INSULN ASP PRT/INSULIN ASPART 100 UNIT/ML 10 ML VIAL SQ ONE (09:21)
[2017-11-16 11:36] LABS: Glucose,Whole Blood 271 mg/dL (75-99)
--- NOTE | 2017-11-16 11:46 | P.PN ---
Subjective Progress Note Date: 11/16/17 Patient is feeling much better today, reports that her shortness of breath is improved and that she still wheezing She reports not feeling as tight in her chest, reports history of URI symptoms with nonproductive cough over the last 3 days, denies fevers chills or night sweats. Reports undergoing elevated blood pressures with her PCP Dr. Galarza as high as 180s systolically, Reports she was taken off lisinopril due to possibility that it was causing a flare of her pancreatitis. No Other acute events overnight other than patient being weaned off cleveprex. Blood pressures overnight 150 -180 Objective - Vital Signs Vital signs: Vital Signs Temp 97.5 F L 11/16/17 08:00 Pulse 64 11/16/17 11:00 Resp 15 11/16/17 11:00 BP 162/81 11/16/17 11:00 Pulse Ox 99 11/16/17 11:00 Intake & Output 11/15/17 11/16/17 11/16/17 18:59 06:59 18:59 Intake Total 1423.933 620 875.967 Output Total 400 550 450 Balance 1023.933 70 425.967 Weight 114.4 kg Intake: IV 120 220 50 NS 120 220 50 Intake, IV Titration 103.933 0 5.967 Amount Clevidipine Butyrate 25 103.933 0 5.967 mg In Empty Bag 1 bag @ 1 MG/HR 2 mls/hr IV .Q24H [facility] Rx#:[id number] Oral 1200 400 820 Output: Urine 400 550 450 Other: Voiding Method Toilet Toilet Toilet # Voids 1 - Exam Constitutional: No acute distress, conversant, pleasant Eyes: Anicteric sclerae, moist conjunctiva, no lid-lag, PERRLA ENMT: NC/AT,Oropharynx clear, no erythema, exudates Neck:Supple, FROM, no masses, or JVD, No carotid bruits; No thyromegaly Lungs: Expiratory wheezes, diffusely, adequate aeration, Normal respiratory effort, no accessory muscle use Cardiovascular: Heart regular in rate and rhythm, No murmurs, gallops, or rubs no peripheral edema Abdominal: Soft Nontender, nom distended, no guarding, no rebound or rigidity, Normoactive bowel sounds No hepatomegaly, No splenomegaly, No palpable mass No abdominal wall hernia noted Skin: Normal temperature, tone, texture, turgor, No induration No subcutaneous nodules, No rash, lesions, No ulcers Extremities:No digital cyanosis No clubbing, Pedal pulses intact and symmetrical Radial pulses intact and symmetrical Normal gait and station, No calf tenderness Psychiatric: Alert and oriented to person, place and time, Appropriate affect Intact judgement Neuro: Muscles Strength 5/5 in all 4 extremities, Sensation to light touch grossly present throughout, Cranial nerves II-XII grossly intact. No focal sensory deficits - Labs CBC & Chem 7: 11/16/17 04:21 11/16/17 04:21 Labs: Abnormal Lab Results - Last 24 Hours (Table) 11/15/17 11/15/17 11/15/17 Range/Units 04:08 04:08 12:10 Hgb (11.4-16.0) gm/dL Hct (34.0-46.0) % Neutrophils # (1.3-7.7) k/uL Lymphocytes # (1.0-4.8) k/uL Carbon Dioxide (22-30) mmol/L BUN (7-17) mg/dL Creatinine (0.52-1.04) mg/dL Glucose (74-99) mg/dL POC Glucose (mg/dL) 323 H (75-99) mg/dL Hemoglobin A1c 8.6 H (4.0-6.0) % Magnesium (1.6-2.3) mg/dL Vitamin D 25-Hydroxy 12.9 L (30.0-100.0) ng/mL PTH Intact 76.9 H (14.0-72.0) pg/mL Urine Appearance (Clear) Urine Protein (Negative) Urine Glucose (UA) (Negative) Urine Bacteria (None) /hpf Urine Mucus (None) /hpf Urine Yeast (Budding) (None) /hpf 11/15/17 11/15/17 11/15/17 Range/Units 15:23 17:18 20:17 Hgb (11.4-16.0) gm/dL Hct (34.0-46.0) % Neutrophils # (1.3-7.7) k/uL Lymphocytes # (1.0-4.8) k/uL Carbon Dioxide (22-30) mmol/L BUN (7-17) mg/dL Creatinine (0.52-1.04) mg/dL Glucose (74-99) mg/dL POC Glucose (mg/dL) 210 H 326 H (75-99) mg/dL Hemoglobin A1c (4.0-6.0) % Magnesium (1.6-2.3) mg/dL Vitamin D 25-Hydroxy (30.0-100.0) ng/mL PTH Intact (14.0-72.0) pg/mL Urine Appearance Cloudy H (Clear) Urine Protein 2+ H (Negative) Urine Glucose (UA) 2+ H (Negative) Urine Bacteria Rare H (None) /hpf Urine Mucus Rare H (None) /hpf Urine Yeast (Budding) Moderate H (None) /hpf 11/16/17 11/16/17 11/16/17 Range/Units 04:21 04:21 06:44 Hgb 11.2 L (11.4-16.0) gm/dL Hct 33.8 L (34.0-46.0) % Neutrophils # 8.5 H (1.3-7.7) k/uL Lymphocytes # 0.5 L (1.0-4.8) k/uL Carbon Dioxide 17 L (22-30) mmol/L BUN 51 H (7-17) mg/dL Creatinine 2.40 H (0.52-1.04) mg/dL Glucose 248 H (74-99) mg/dL POC Glucose (mg/dL) 269 H (75-99) mg/dL Hemoglobin A1c (4.0-6.0) % Magnesium 2.5 H (1.6-2.3) mg/dL Vitamin D 25-Hydroxy (30.0-100.0) ng/mL PTH Intact (14.0-72.0) pg/mL Urine Appearance (Clear) Urine Protein (Negative) Urine Glucose (UA) (Negative) Urine Bacteria (None) /hpf Urine Mucus (None) /hpf Urine Yeast (Budding) (None) /hpf 11/16/17 Range/Units 11:34 Hgb (11.4-16.0) gm/dL Hct (34.0-46.0) % Neutrophils # (1.3-7.7) k/uL Lymphocytes # (1.0-4.8) k/uL Carbon Dioxide (22-30) mmol/L BUN (7-17) mg/dL Creatinine (0.52-1.04) mg/dL Glucose (74-99) mg/dL POC Glucose (mg/dL) 271 H (75-99) mg/dL Hemoglobin A1c (4.0-6.0) % Magnesium (1.6-2.3) mg/dL Vitamin D 25-Hydroxy (30.0-100.0) ng/mL PTH Intact (14.0-72.0) pg/mL Urine Appearance (Clear) Urine Protein (Negative) Urine Glucose (UA) (Negative) Urine Bacteria (None) /hpf Urine Mucus (None) /hpf Urine Yeast (Budding) (None) /hpf Microbiology - Last 24 Hours (Table) 11/14/17 22:16 Blood Culture - Preliminary Blood No Growth after 24 hours Assessment and Plan (1) Hypertensive emergency Narrative/Plan: * Patient's blood pressure improved we'll attempt to wean off cleveprex continue metoprolol and Norvasc, Clonidine and chlorthalidone * We'll check echocardiogram re Nt pro BNP 3500 * We'll hold losartan today due to worsening renal failure * Workup for secondary causes of hypertension per nephrology, follow-up renal ultrasound with Doppler Current Visit: Yes Status: Acute Code(s): I16.1 - HYPERTENSIVE EMERGENCY SNOMED Code(s): 372455010074335 (2) Asthma exacerbation Narrative/Plan: * Secondary to viral URI * CT of the chest negative for PE shows only nonspecific mediastinal and bronchial lymph nodes seen on previous imaging * No sign of infiltrates, DC Levaquin * Continue systemic steroids and scheduled and when necessary bronchodilator breathing treatments * Pulmonary following appreciate recommendations Current Visit: Yes Status: Acute Code(s): J45.901 - UNSPECIFIED ASTHMA WITH (ACUTE) EXACERBATION SNOMED Code(s): 406971065 (3) Chronic kidney disease, stage III (moderate) Narrative/Plan: * Acute kidney injury superimposed on chronic kidney disease * Baseline creatinine appears to be turning 1.7 and 1.9 trending up to 2.4 today. * likely secondary to hypertensive and diabetic nephropathy * Nephrology consult pending continue to monitor * Patient mildly acidotic Current Visit: Yes Status: Acute Code(s): N18.3 - CHRONIC KIDNEY DISEASE, STAGE 3 (MODERATE) SNOMED Code(s): 491855863 (4) Type 2 diabetes mellitus with hyperglycemia Narrative/Plan: * A1c pending, continue with Accu-Cheks with scheduled and correctional scale insulin * Also has neuropathy continue gabapentin * Blood sugars worsened by steroids for her asthma exacerbation * Continue to monitor Current Visit: Yes Status: Acute Code(s): E11.65 - TYPE 2 DIABETES MELLITUS WITH HYPERGLYCEMIA SNOMED Code(s): 509696719413069 Plan: Continue to monitor patient's kidney function, and workup for secondary hypertension continue to monitor her blood pressures and if stable patient can be transferred to the medical unit telemetry
[2017-11-16] MEDS ORDERED: INSULIN ASPART 100 UNIT/ML 1 ML 10 ML VIAL SQ ONE ×2 (11:47→17:15)
[2017-11-16] MEDS: ERGOCALCIFEROL 50,000 UNIT CAP PO SCH (12:37)
--- NOTE | 2017-11-16 13:05 | PN ---
PROGRESS NOTE Patient is seen for followup for uncontrolled hypertension and acute kidney injury. She was admitted to the hospital with a severely uncontrolled hypertension, systolic blood pressure mmHg. Patient was on Catapres drip for a short periods of time. She is currently off of the Catapres drip and is maintained on clonidine, Norvasc and lisinopril, which patient received yesterday. She was supposed to be switched to Cozaar. However, her serum creatinine is significantly higher at 2.4 from 1.9 yesterday, therefore, the angiotensin receptor blockers are on hold. Patient continues to have good urine output. She states overall she is feeling better. PHYSICAL EXAMINATION: Blood pressure is 147/80, heart rate 68 per minute. She is afebrile. Examination of the heart, S1, S2. Examination of the lungs, bilateral breath sounds are heard. Abdomen is soft, nontender. Examination of the lower extremities showed trace edema bilaterally. 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 LABS: Show sodium 137, potassium 4.8, chloride 105, CO2 is 17, BUN 51, serum creatinine 2.4, hemoglobin 11.2 g/dL. ASSESSMENT: 1. Acute kidney injury secondary to uncontrolled hypertension and fluctuation in blood pressure. Patient got a dose of yesterday. The Cozaar is currently on hold, which is appropriate. Continue to monitor her renal function. The ultrasound does not reveal any significant asymmetry of the kidneys. The patient is not maintained on any nephrotoxic agents. I will continue with the chlorthalidone for now. 2. Chronic kidney disease with previous creatinine at 1.7 and 1.6 mg/dL in February of 2017. NKF stage III. Patient does have proteinuria, etiology is likely diabetic nephropathy. 3. Mild hypercalcemia noted on labs yesterday. Repeat calcium level is 9.5. She was at 10.6 and 10.3 mg/dL. The PTH was 76.9, which is slightly on the higher side. However, patient's hydroxy vitamin D was very low at 12.9. I will start supplementation. 4. Nutrition vitamin D deficiency. Start supplemental with . May continue with the thiazide diuretics for now. Plan is hold off on Cozaar, continue with chlorthalidone. I would like to avoid excessive diuresis given her worsening renal function. Repeat labs in a.m. Continue off of IV fluids. Follow up on results of and renal levels. MMODL / IJN: [id number] /
--- NOTE | 2017-11-16 13:13 | P.PN ---
Subjective Flow Patient is feeling better. She denies shortness of breath. Since her vital signs show her last 24 hours reviewed. Since blood pressure now is 150- 160 systolic creatinine has increased to 2.4. Patient denies any respiratory distress. Objective - Vital Signs Vital signs: Vital Signs Temp 97.8 F 11/16/17 12:00 Pulse 67 11/16/17 12:00 Resp 20 11/16/17 12:00 BP 151/78 11/16/17 12:00 Pulse Ox 99 11/16/17 12:00 Intake & Output 11/15/17 11/16/17 11/16/17 18:59 06:59 18:59 Intake Total 1423.646 533 1674.967 Output Total 400 550 650 Balance 1023.933 70 595.967 Weight 114.4 kg Intake: IV 120 220 60 NS 120 220 60 Intake, IV Titration 103.933 0 5.967 Amount Clevidipine Butyrate 25 103.933 0 5.967 mg In Empty Bag 1 bag @ 1 MG/HR 2 mls/hr IV .Q24H [facility] Rx#:[id number] Oral [id number] Output: Urine 400 550 650 Other: Voiding Method Toilet Toilet Toilet # Voids 1 - Exam Patient's vital signs are reviewed. The patient is alert awake and in no acute distress. HEENT negative. Neck-supple no increase in JVP noted no carotid bruits noted. Chest-symmetrical. Heart-first and second heart sounds are normal. No S3 or S4 is noted. No significant murmurs are noted. Lungs bilateral good at entry is noted. No rales or rhonchi are noted Abdomen-soft. Liver and spleen are not enlarged. The bowel sounds are normal. No tenderness noted Extremities-peripheral pulses since are 2+. No significant leg edema noted. Neuro-no significant gross abnormality noted. - Labs CBC & Chem 7: 11/16/17 04:21 11/16/17 04:21 Labs: Abnormal Lab Results - Last 24 Hours (Table) 11/15/17 11/15/17 11/15/17 Range/Units 04:08 04:08 15:23 Hgb (11.4-16.0) gm/dL Hct (34.0-46.0) % Neutrophils # (1.3-7.7) k/uL Lymphocytes # (1.0-4.8) k/uL Carbon Dioxide (22-30) mmol/L BUN (7-17) mg/dL Creatinine (0.52-1.04) mg/dL Glucose (74-99) mg/dL POC Glucose (mg/dL) (75-99) mg/dL Hemoglobin A1c 8.6 H (4.0-6.0) % Magnesium (1.6-2.3) mg/dL Vitamin D 25-Hydroxy 12.9 L (30.0-100.0) ng/mL PTH Intact 76.9 H (14.0-72.0) pg/mL Urine Appearance Cloudy H (Clear) Urine Protein 2+ H (Negative) Urine Glucose (UA) 2+ H (Negative) Urine Bacteria Rare H (None) /hpf Urine Mucus Rare H (None) /hpf Urine Yeast (Budding) Moderate H (None) /hpf 11/15/17 11/15/17 11/16/17 Range/Units 17:18 20:17 04:21 Hgb (11.4-16.0) gm/dL Hct (34.0-46.0) % Neutrophils # (1.3-7.7) k/uL Lymphocytes # (1.0-4.8) k/uL Carbon Dioxide 17 L (22-30) mmol/L BUN 51 H (7-17) mg/dL Creatinine 2.40 H (0.52-1.04) mg/dL Glucose 248 H (74-99) mg/dL POC Glucose (mg/dL) 210 H 326 H (75-99) mg/dL Hemoglobin A1c (4.0-6.0) % Magnesium 2.5 H (1.6-2.3) mg/dL Vitamin D 25-Hydroxy (30.0-100.0) ng/mL PTH Intact (14.0-72.0) pg/mL Urine Appearance (Clear) Urine Protein (Negative) Urine Glucose (UA) (Negative) Urine Bacteria (None) /hpf Urine Mucus (None) /hpf Urine Yeast (Budding) (None) /hpf 11/16/17 11/16/17 11/16/17 Range/Units 04:21 06:44 11:34 Hgb 11.2 L (11.4-16.0) gm/dL Hct 33.8 L (34.0-46.0) % Neutrophils # 8.5 H (1.3-7.7) k/uL Lymphocytes # 0.5 L (1.0-4.8) k/uL Carbon Dioxide (22-30) mmol/L BUN (7-17) mg/dL Creatinine (0.52-1.04) mg/dL Glucose (74-99) mg/dL POC Glucose (mg/dL) 269 H 271 H (75-99) mg/dL Hemoglobin A1c (4.0-6.0) % Magnesium (1.6-2.3) mg/dL Vitamin D 25-Hydroxy (30.0-100.0) ng/mL PTH Intact (14.0-72.0) pg/mL Urine Appearance (Clear) Urine Protein (Negative) Urine Glucose (UA) (Negative) Urine Bacteria (None) /hpf Urine Mucus (None) /hpf Urine Yeast (Budding) (None) /hpf Microbiology - Last 24 Hours (Table) 11/14/17 22:16 Blood Culture - Preliminary Blood No Growth after 24 hours Assessment and Plan Assessment: We will change the Lopressor to Coreg 25 mg twice a day. Once the [place] may be changed to Demadex as patient's creatinine is 2.4. He will let Dr. Dallas decide whether to continue R or stop it.
--- NOTE | 2017-11-16 14:07 | P.PN ---
Subjective Progress Note Date: 11/16/17 A very pleasant 52-year-old obese female patient with known history of bronchial asthma maintained on Symbicort on outpatient basis. The patient is also known to have hypertension and she has been off her antihypertensive medication for a few days. She has been on a combination of Norvasc, lisinopril and metoprolol and outpatient basis. The patient came into the hospital yesterday because of worsening shortness of breath. She was getting progressive dyspnea chest tightness and wheezing and bronchospasm. She had also some limited cough and congestion. In general, her asthma has been under good control. She did not require frequent hospitalizations or any other care regarding asthma control. However, she reports to have difficulties with blood pressure control. Since her arrival to the hospital the patient was having elevated blood pressure with systolics [id number]. In emergency department the patient was started on Cleviprex drip for blood pressure control. This morning the blood pressures under better control. The patient will be started back on the oral antihypertensive medication. No chest pain. No angina. No swelling in lower extremities. The patient is diabetic. The patient has diabetic retinopathy and nephropathy. The patient is currently on steroids and the patient has developed some mild steroid-induced hyperglycemia. Troponins are minimally elevated and the proBNP level is 3500. Echocardiogram was also ordered. The echocardiogram showed an ejection fraction of 65%. No other significant abnormalities. There is evidence of severe concentric left ventricular hypertrophy consistent hypertensive heart disease. CT of the chest was done and the burst department and showed no acute abnormalities. There is some interstitial congestion related to fluids. On 11/16/2017. Seeing this patient for a follow-up. In terms of her asthma she is less short of breath compared to yesterday. She is on DuoNeb neb last treatment [id number] and Symbicort. The patient is also on IV Solu- Medrol. She has a little some steroid-induced hyperglycemia. She is on 7030 insulin 35 units in the morning and 25 units in the evening along with a sliding scale coverage. Blood sugars ranging to 250 and 350. In addition, the patient is still on 1 mg of Cleviprex infusion. Blood pressure is under better control and we are gradually to using the oral antihypertensive medication and the patient is currently on a combination of clonidine 0.1 mg 3 times a day, losartan 50 mg by mouth daily metoprolol 100 mg by mouth twice a day and hydrochlorothiazide 25 mg by mouth daily. Her creatinine is up to 2.4. Rest of the electrolytes show a component of non-anion gap metabolic acidosis. Hemoglobin stable at 9.2. She has no chest pain. Some limited cough and congestion still present. No other new complaints otherwise for now. Objective - Vital Signs Vital signs: Vital Signs Temp 97.8 F 11/16/17 12:00 Pulse 67 11/16/17 12:00 Resp 20 11/16/17 12:00 BP 151/78 11/16/17 12:00 Pulse Ox 99 11/16/17 12:00 Intake & Output 11/15/17 11/16/17 11/16/17 18:59 06:59 18:59 Intake Total 1423.032 348 2464.967 Output Total 400 550 650 Balance 1023.933 70 595.967 Weight 114.4 kg Intake: IV 120 220 60 NS 120 220 60 Intake, IV Titration 103.933 0 5.967 Amount Clevidipine Butyrate 25 103.933 0 5.967 mg In Empty Bag 1 bag @ 1 MG/HR 2 mls/hr IV .Q24H [facility] Rx#:[id number] Oral [id number] Output: Urine 400 550 650 Other: Voiding Method Toilet Toilet Toilet # Voids 1 - Exam Gen. appearance the patient is calm comfortable likely distress. Resting comfortably in bed. No signs of any respiratory distress or use of accessory muscles of breathing. Head exam was generally normal. There was no scleral icterus or corneal arcus. Mucous membranes were moist. Neck was supple and without jugular venous distension, thyromegaly, or carotid bruits. Carotids were easily palpable bilaterally. There was no adenopathy. Patient has significant crowding of the posterior oropharynx and the patient has a Mallampati class IV Lung sounds are diminished bilaterally along with that there is diffuse expiratory wheezes heard throughout the lung li and prolongation of expiratory phase of breathing. Cardiac exam revealed the PMI to be normally situated and sized. The rhythm was regular and no extrasystoles were noted during several minutes of auscultation. The first and second heart sounds were normal and physiologic splitting of the second heart sound was noted. There were no murmurs, rubs, clicks, or gallops. Abdomen is obese soft nontender and organs cannot be accurately palpated Examination of the extremities revealed easily palpable radial, femoral and pedal pulses. There was no cyanosis, clubbing or edema. Neurologically awake and alert and is no focal neurological deficit Examination of the skin revealed no evidence of significant rashes, suspicious appearing nevi or other concerning lesions. - Labs CBC & Chem 7: 11/16/17 04:21 11/16/17 04:21 Labs: Abnormal Lab Results - Last 24 Hours (Table) 11/15/17 11/15/17 11/15/17 Range/Units 04:08 04:08 15:23 Hgb (11.4-16.0) gm/dL Hct (34.0-46.0) % Neutrophils # (1.3-7.7) k/uL Lymphocytes # (1.0-4.8) k/uL Carbon Dioxide (22-30) mmol/L BUN (7-17) mg/dL Creatinine (0.52-1.04) mg/dL Glucose (74-99) mg/dL POC Glucose (mg/dL) (75-99) mg/dL Hemoglobin A1c 8.6 H (4.0-6.0) % Magnesium (1.6-2.3) mg/dL Vitamin D 25-Hydroxy 12.9 L (30.0-100.0) ng/mL PTH Intact 76.9 H (14.0-72.0) pg/mL Urine Appearance Cloudy H (Clear) Urine Protein 2+ H (Negative) Urine Glucose (UA) 2+ H (Negative) Urine Bacteria Rare H (None) /hpf Urine Mucus Rare H (None) /hpf Urine Yeast (Budding) Moderate H (None) /hpf 11/15/17 11/15/17 11/16/17 Range/Units 17:18 20:17 04:21 Hgb (11.4-16.0) gm/dL Hct (34.0-46.0) % Neutrophils # (1.3-7.7) k/uL Lymphocytes # (1.0-4.8) k/uL Carbon Dioxide 17 L (22-30) mmol/L BUN 51 H (7-17) mg/dL Creatinine 2.40 H (0.52-1.04) mg/dL Glucose 248 H (74-99) mg/dL POC Glucose (mg/dL) 210 H 326 H (75-99) mg/dL Hemoglobin A1c (4.0-6.0) % Magnesium 2.5 H (1.6-2.3) mg/dL Vitamin D 25-Hydroxy (30.0-100.0) ng/mL PTH Intact (14.0-72.0) pg/mL Urine Appearance (Clear) Urine Protein (Negative) Urine Glucose (UA) (Negative) Urine Bacteria (None) /hpf Urine Mucus (None) /hpf Urine Yeast (Budding) (None) /hpf 11/16/17 11/16/17 11/16/17 Range/Units 04:21 06:44 11:34 Hgb 11.2 L (11.4-16.0) gm/dL Hct 33.8 L (34.0-46.0) % Neutrophils # 8.5 H (1.3-7.7) k/uL Lymphocytes # 0.5 L (1.0-4.8) k/uL Carbon Dioxide (22-30) mmol/L BUN (7-17) mg/dL Creatinine (0.52-1.04) mg/dL Glucose (74-99) mg/dL POC Glucose (mg/dL) 269 H 271 H (75-99) mg/dL Hemoglobin A1c (4.0-6.0) % Magnesium (1.6-2.3) mg/dL Vitamin D 25-Hydroxy (30.0-100.0) ng/mL PTH Intact (14.0-72.0) pg/mL Urine Appearance (Clear) Urine Protein (Negative) Urine Glucose (UA) (Negative) Urine Bacteria (None) /hpf Urine Mucus (None) /hpf Urine Yeast (Budding) (None) /hpf Microbiology - Last 24 Hours (Table) 11/14/17 22:16 Blood Culture - Preliminary Blood No Growth after 24 hours Assessment and Plan Plan: Assessment 1 acute asthma exacerbation with secondary shortness of breath. Acute asthma exacerbation is improving slowly. 2 hypertensive urgency currently on Cleviprex drip for blood pressure control. Overall blood pressures under better control and the patient has been weaned off the Cleviprex drip which is onlt @ 1milligram per minutes.. The patient was also started on oral antihypertensive medication. 3 hypertensive heart disease with concentric left ventricular hypertrophy 4 diabetes mellitus, with a component of steroid-induced hyperglycemia 5 diabetic retinopathy and nephropathy 6 chronic renal failure, stage III chronic kidney disease 7 morbidly obesity Plan Continue DuoNeb's. Stopped IV Solu Medrol put the patient on 40 mg of prednisone as part of burst taper. Increase the insulin 70/30 to 45 units in the morning and 35 in the evening and cover with sliding scale coverage. Wean off and discontinued Cleviprex. Continue rest of the antihypertensive medication and increase the clonidine up to 0.2 mg 3 times a day. We'll continue to monitor the blood pressure control. We'll make further recommendations based on her progress.
[2017-11-16] MEDS: IPRATROPIUM-ALBUTEROL 3 ML NEB INHALATION PRN ×2 (15:50→19:27)
[2017-11-16 16:55] LABS: Glucose,Whole Blood 270 mg/dL (75-99)
[2017-11-16] MEDS: CARVEDILOL 12.5 MG TAB PO SCH (17:21)
[2017-11-16] MEDS ORDERED: INSULN ASP PRT/INSULIN ASPART 100 UNIT/ML 10 ML VIAL SQ SCH (17:30)
[2017-11-16 20:09] LABS: Glucose,Whole Blood 184 mg/dL (75-99)
[2017-11-16] MEDS: ZOLPIDEM 10 MG TAB PO SCH (22:43)
[2017-11-17 05:28] LABS: Basophils % (A) 0 %; Eosinophils % (A) 0 %; HCT 31.5 % (34.0-46.0); HGB 10.5 gm/dL (11.4-16.0); Lymphocytes # (A) 0.6 k/uL (1.0-4.8); Lymphocytes % (A) 8 %; MCHC 33.2 g/dL (31.0-37.0); MCV 84.3 fL (80.0-100.0); Monocytes # (A) 0.3 k/uL (0-1.0); Monocytes % (A) 5 %; Neutrophils # (A) 6.4 k/uL (1.3-7.7); Neutrophils % (A) 86 %; Platelet Count 243 k/uL (150-450); RBC 3.74 m/uL (3.80-5.40); RDW 14.1 % (11.5-15.5); WBC 7.5 k/uL (3.8-10.6)
[2017-11-17 05:38] LABS: Calcium 9.5 mg/dL (8.4-10.2); Magnesium 2.4 mg/dL (1.6-2.3); Potassium 4.3 mmol/L (3.5-5.1)
[2017-11-17 07:24] LABS: Glucose,Whole Blood 135 mg/dL (75-99)
[2017-11-17] MEDS: methylPREDNISolone SOD SUCCI 40 MG/ML 1 ML VIAL IV SCH (07:43)
[2017-11-17] MEDS: SYMBICORT 160-4.5 MCG INHALER INHALATION SCH ×2 (07:51→19:44)
[2017-11-17] MEDS: ALBUTEROL NEBULIZED 2.5 MG/3 ML INHALATION PRN ×2 (07:51→19:44)
[2017-11-17] MEDS: GABAPENTIN 300 MG CAP PO SCH ×3 (08:04→21:35)
[2017-11-17] MEDS: CHLORTHALIDONE 25 MG TAB PO SCH (08:04)
[2017-11-17] MEDS: PANTOPRAZOLE 40 MG TABLET PO SCH (08:04)
[2017-11-17] MEDS: CITALOPRAM HYDROBROMIDE 20 MG TAB PO SCH (08:04)
[2017-11-17] MEDS: HEPARIN SODIUM,PORCINE 5,000 UNIT/ML 1 ML VIAL SQ SCH ×3 (08:04→23:26)
[2017-11-17] MEDS: CARVEDILOL 12.5 MG TAB PO SCH ×2 (08:04→18:01)
[2017-11-17] MEDS: amLODIPine 10 MG TAB PO SCH (08:04)
[2017-11-17] MEDS: LORATADINE 10 MG TAB PO SCH (08:04)
[2017-11-17] MEDS: predniSONE 20 MG TAB PO SCH (08:05)
[2017-11-17] MEDS: ATORVASTATIN 80 MG TAB PO SCH (08:05)
[2017-11-17] MEDS: cloNIDine HCL 0.2 MG TAB PO SCH ×3 (08:05→21:36)
[2017-11-17] MEDS: INSULIN ASPART 100 UNIT/ML 1 ML 10 ML VIAL SQ SCH ×4 (08:11→21:36)
[2017-11-17] MEDS: INSULN ASP PRT/INSULIN ASPART 100 UNIT/ML 10 ML VIAL SQ SCH ×2 (08:11→18:00)
--- NOTE | 2017-11-17 11:13 | P.PN ---
Subjective Progress Note Date: 11/17/17 Patient is feeling much more fatigued today reports that her shortness of breath is and her wheezing is limited. Blood pressures have been improved since being off cleveprex systolically 129-167. No acute events overnight Objective - Vital Signs Vital signs: Vital Signs Temp 97.7 F 11/17/17 04:00 Pulse 70 11/17/17 08:04 Resp 12 11/17/17 04:00 BP 167/85 11/17/17 04:00 Pulse Ox 95 11/17/17 04:00 Intake & Output 11/16/17 11/17/17 11/17/17 18:59 06:59 18:59 Intake Total 1485.967 840 Output Total 850 2100 Balance 635.967 -1260 Weight 116.2 kg Intake: IV 60 0 NS 60 0 Intake, IV Titration 5.967 Amount Clevidipine Butyrate 25 5.967 mg In Empty Bag 1 bag @ 1 MG/HR 2 mls/hr IV .Q24H [facility] Rx#:[id number] Oral 1420 840 Output: Urine 850 2100 Other: Voiding Method Toilet Toilet - Exam Constitutional: No acute distress, conversant, pleasant Eyes: Anicteric sclerae, moist conjunctiva, no lid-lag, PERRLA ENMT: NC/AT,Oropharynx clear, no erythema, exudates Neck:Supple, FROM, no masses, or JVD, No carotid bruits; No thyromegaly Lungs: Faint wheezes improved aeration , Normal respiratory effort, no accessory muscle use Cardiovascular: Heart regular in rate and rhythm, No murmurs, gallops, or rubs no peripheral edema Abdominal: Soft Nontender, nom distended, no guarding, no rebound or rigidity, Normoactive bowel sounds No hepatomegaly, No splenomegaly, No palpable mass No abdominal wall hernia noted Skin: Normal temperature, tone, texture, turgor, No induration No subcutaneous nodules, No rash, lesions, No ulcers Extremities:No digital cyanosis No clubbing, Pedal pulses intact and symmetrical Radial pulses intact and symmetrical Normal gait and station, No calf tenderness Psychiatric: Alert and oriented to person, place and time, Appropriate affect Intact judgement Neuro: Muscles Strength 5/5 in all 4 extremities, Sensation to light touch grossly present throughout, Cranial nerves II-XII grossly intact. No focal sensory deficits - Labs CBC & Chem 7: 11/17/17 05:17 11/17/17 05:17 Labs: Abnormal Lab Results - Last 24 Hours (Table) 11/16/17 11/16/17 11/16/17 Range/Units 11:34 16:53 20:08 RBC (3.80-5.40) m/uL Hgb (11.4-16.0) gm/dL Hct (34.0-46.0) % Lymphocytes # (1.0-4.8) k/uL Carbon Dioxide (22-30) mmol/L BUN (7-17) mg/dL Creatinine (0.52-1.04) mg/dL Glucose (74-99) mg/dL POC Glucose (mg/dL) 271 H 270 H 184 H (75-99) mg/dL Magnesium (1.6-2.3) mg/dL 11/17/17 11/17/17 11/17/17 Range/Units 05:17 05:17 07:15 RBC 3.74 L (3.80-5.40) m/uL Hgb 10.5 L (11.4-16.0) gm/dL Hct 31.5 L (34.0-46.0) % Lymphocytes # 0.6 L (1.0-4.8) k/uL Carbon Dioxide 19 L (22-30) mmol/L BUN 60 H (7-17) mg/dL Creatinine 2.30 H (0.52-1.04) mg/dL Glucose 133 H (74-99) mg/dL POC Glucose (mg/dL) 135 H (75-99) mg/dL Magnesium 2.4 H (1.6-2.3) mg/dL Microbiology - Last 24 Hours (Table) 11/14/17 22:16 Blood Culture - Preliminary Blood No Growth after 48 hours Assessment and Plan (1) Hypertensive emergency Narrative/Plan: * Patient's blood pressure improved we'll attempt to wean off cleveprex continue carvedilol and Norvasc, Clonidine and chlorthalidone * We'll check echocardiogram re Nt pro BNP 3500 * We'll hold losartan today due to worsening renal failure * Workup for secondary causes of hypertension per nephrology, follow-up renal ultrasound with Doppler Current Visit: Yes Status: Resolved Code(s): I16.1 - HYPERTENSIVE EMERGENCY SNOMED Code(s): 245088692309339 (2) Asthma exacerbation Narrative/Plan: * Secondary to viral URI * CT of the chest negative for PE shows only nonspecific mediastinal and bronchial lymph nodes seen on previous imaging * No sign of infiltrates, DC Levaquin * Continue systemic steroids and scheduled and when necessary bronchodilator breathing treatments * Pulmonary following appreciate recommendations Current Visit: Yes Status: Acute Code(s): J45.901 - UNSPECIFIED ASTHMA WITH (ACUTE) EXACERBATION SNOMED Code(s): 336452026 (3) Chronic kidney disease, stage III (moderate) Narrative/Plan: * Acute kidney injury superimposed on chronic kidney disease * Baseline creatinine appears to be turning 1.7 and 1.9 trending up to 2.4 today. * likely secondary to hypertensive and diabetic nephropathy * Nephrology consult pending continue to monitor * Patient mildly acidotic Current Visit: Yes Status: Acute Code(s): N18.3 - CHRONIC KIDNEY DISEASE, STAGE 3 (MODERATE) SNOMED Code(s): 468933952 (4) Type 2 diabetes mellitus with hyperglycemia Narrative/Plan: * A1c pending, continue with Accu-Cheks with scheduled and correctional scale insulin * Also has neuropathy continue gabapentin * Blood sugars worsened by steroids for her asthma exacerbation * Continue to monitor Current Visit: Yes Status: Acute Code(s): E11.65 - TYPE 2 DIABETES MELLITUS WITH HYPERGLYCEMIA SNOMED Code(s): 856393688952954 Plan: Continue to monitor patient's kidney function, and workup for secondary hypertension continue to monitor her blood pressures and if stable patient can be transferred to the medical unit telemetry
[2017-11-17] MEDS ORDERED: PNEUMOCOCCAL VACC-PNEUMOVAX 23 25 MCG/0.5 ML VIAL IM ONE (11:32)
[2017-11-17] MEDS: AZITHROMYCIN 250 MG TAB PO SCH (11:33)
[2017-11-17 11:47] LABS: Glucose,Whole Blood 95 mg/dL (75-99)
--- NOTE | 2017-11-17 11:51 | PN ---
PROGRESS NOTE Patient is seen for followup for acute kidney injury, uncontrolled hypertension. She currently remains off of the Cleviprex drip. Patient has had good urine output. Her blood pressure has been fairly well controlled. She is maintained on clonidine, Norvasc, and Coreg. She got 1 dose of lisinopril and then the MEG inhibitor/angiotensin receptor blockers have been on hold secondary to worsening renal function. PHYSICAL EXAMINATION: On examination today, patient feels well. Blood pressure was 140/58, heart rate 65 per minute. She is afebrile. Examination of the heart, S1, S2. Examination of the lungs, bilateral breath sounds are heard. Abdomen is soft, nontender, obese. Examination of the lower extremities shows no significant edema. 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 LABS: Show sodium 137, potassium 4.3, chloride 106, BUN 60, serum creatinine 2.3, hemoglobin 10.5 g/dL. ASSESSMENT: 1. Uncontrolled hypertension, currently much better controlled. Once renal function improves, we can add angiotensin receptor blockers down the road. This can be done as outpatient. Continue with the current regimen for now. Continue with chlorthalidone. 2. Acute kidney injury secondary to uncontrolled hypertension, currently slightly improved. 3. Chronic kidney disease, NKF stage III, with previous creatinine at 1.6-1.7 mg/dL with evidence of proteinuria, most likely secondary to diabetic nephropathy. 4. Nutritional vitamin D deficiency, maintained on vitamin D supplementation. PLAN: Continue current meds. Possible discharge over the next day. Patient will need followup as outpatient for CKD and hypertension. MMODL / IJN: [id number] /
--- NOTE | 2017-11-17 14:43 | P.PN ---
Subjective Progress Note Date: 11/17/17 A very pleasant 52-year-old obese female patient with known history of bronchial asthma maintained on Symbicort on outpatient basis. The patient is also known to have hypertension and she has been off her antihypertensive medication for a few days. She has been on a combination of Norvasc, lisinopril and metoprolol and outpatient basis. The patient came into the hospital yesterday because of worsening shortness of breath. She was getting progressive dyspnea chest tightness and wheezing and bronchospasm. She had also some limited cough and congestion. In general, her asthma has been under good control. She did not require frequent hospitalizations or any other care regarding asthma control. However, she reports to have difficulties with blood pressure control. Since her arrival to the hospital the patient was having elevated blood pressure with systolics [id number]. In emergency department the patient was started on Cleviprex drip for blood pressure control. This morning the blood pressures under better control. The patient will be started back on the oral antihypertensive medication. No chest pain. No angina. No swelling in lower extremities. The patient is diabetic. The patient has diabetic retinopathy and nephropathy. The patient is currently on steroids and the patient has developed some mild steroid-induced hyperglycemia. Troponins are minimally elevated and the proBNP level is 3500. Echocardiogram was also ordered. The echocardiogram showed an ejection fraction of 65%. No other significant abnormalities. There is evidence of severe concentric left ventricular hypertrophy consistent hypertensive heart disease. CT of the chest was done and the burst department and showed no acute abnormalities. There is some interstitial congestion related to fluids. On 11/16/2017. Seeing this patient for a follow-up. In terms of her asthma she is less short of breath compared to yesterday. She is on DuoNeb neb last treatment [id number] and Symbicort. The patient is also on IV Solu- Medrol. She has a little some steroid-induced hyperglycemia. She is on 7030 insulin 35 units in the morning and 25 units in the evening along with a sliding scale coverage. Blood sugars ranging to 250 and 350. In addition, the patient is still on 1 mg of Cleviprex infusion. Blood pressure is under better control and we are gradually to using the oral antihypertensive medication and the patient is currently on a combination of clonidine 0.1 mg 3 times a day, losartan 50 mg by mouth daily metoprolol 100 mg by mouth twice a day and hydrochlorothiazide 25 mg by mouth daily. Her creatinine is up to 2.4. Rest of the electrolytes show a component of non-anion gap metabolic acidosis. Hemoglobin stable at 9.2. She has no chest pain. Some limited cough and congestion still present. No other new complaints otherwise for now. On 11/17/2017, the patient is off the Cleviprex drip. The patient is doing well. No complaints other than some residual chest congestion and the patient is unable to bring up any mucus. No sugars under better control. The patient on a combination of clonidine 0.2 mg 3 times a day, Coreg, hydrochlorothiazide and Norvasc. She is on prednisone burst taper. She remains in the intensive care unit. No chest pain. No swelling lower extremities. Renal function is stable with a creatinine of 2.3. Objective - Vital Signs Vital signs: Vital Signs Temp 98.1 F 11/17/17 08:00 Pulse 70 11/17/17 08:04 Resp 20 11/17/17 08:00 BP 140/58 11/17/17 08:00 Pulse Ox 97 11/17/17 08:00 Intake & Output 11/16/17 11/17/17 11/17/17 18:59 06:59 18:59 Intake Total 1485.967 840 360 Output Total 850 2100 700 Balance 635.967 -1260 -340 Weight 116.2 kg Intake: IV 60 0 NS 60 0 Intake, IV Titration 5.967 Amount Clevidipine Butyrate 25 5.967 mg In Empty Bag 1 bag @ 1 MG/HR 2 mls/hr IV .Q24H [facility] Rx#:[id number] Oral 1420 840 360 Output: Urine 850 2100 700 Other: Voiding Method Toilet Toilet Toilet - Exam Gen. appearance the patient is calm comfortable likely distress. Resting comfortably in bed. No signs of any respiratory distress or use of accessory muscles of breathing. Head exam was generally normal. There was no scleral icterus or corneal arcus. Mucous membranes were moist. Neck was supple and without jugular venous distension, thyromegaly, or carotid bruits. Carotids were easily palpable bilaterally. There was no adenopathy. Patient has significant crowding of the posterior oropharynx and the patient has a Mallampati class IV Lung sounds are diminished bilaterally along with that there is diffuse expiratory wheezes heard throughout the lung li and prolongation of expiratory phase of breathing. Cardiac exam revealed the PMI to be normally situated and sized. The rhythm was regular and no extrasystoles were noted during several minutes of auscultation. The first and second heart sounds were normal and physiologic splitting of the second heart sound was noted. There were no murmurs, rubs, clicks, or gallops. Abdomen is obese soft nontender and organs cannot be accurately palpated Examination of the extremities revealed easily palpable radial, femoral and pedal pulses. There was no cyanosis, clubbing or edema. Neurologically awake and alert and is no focal neurological deficit Examination of the skin revealed no evidence of significant rashes, suspicious appearing nevi or other concerning lesions. - Labs CBC & Chem 7: 11/17/17 05:11/17/17 05:17 Labs: Abnormal Lab Results - Last 24 Hours (Table) 11/16/17 11/16/17 11/17/17 Range/Units 16:53 20:08 05:17 RBC 3.74 L (3.80-5.40) m/uL Hgb 10.5 L (11.4-16.0) gm/dL Hct 31.5 L (34.0-46.0) % Lymphocytes # 0.6 L (1.0-4.8) k/uL Carbon Dioxide (22-30) mmol/L BUN (7-17) mg/dL Creatinine (0.52-1.04) mg/dL Glucose (74-99) mg/dL POC Glucose (mg/dL) 270 H 184 H (75-99) mg/dL Magnesium (1.6-2.3) mg/dL 11/17/17 11/17/17 Range/Units 05:17 07:15 RBC (3.80-5.40) m/uL Hgb (11.4-16.0) gm/dL Hct (34.0-46.0) % Lymphocytes # (1.0-4.8) k/uL Carbon Dioxide 19 L (22-30) mmol/L BUN 60 H (7-17) mg/dL Creatinine 2.30 H (0.52-1.04) mg/dL Glucose 133 H (74-99) mg/dL POC Glucose (mg/dL) 135 H (75-99) mg/dL Magnesium 2.4 H (1.6-2.3) mg/dL Microbiology - Last 24 Hours (Table) 11/14/17 22:16 Blood Culture - Preliminary Blood No Growth after 48 hours Assessment and Plan Plan: Assessment 1 acute asthma exacerbation with secondary shortness of breath. Acute asthma exacerbation is improving slowly. The patient continues to have some residual cough and congestion and she is unable to bring up any sputum. We'll add antibiotics for symptoms of tracheal bronchitis. 2 hypertensive urgency currently off Cleviprex drip for blood pressure control. The BP is under better control for now. The patient is asymptomatic. 3 hypertensive heart disease with concentric left ventricular hypertrophy 4 diabetes mellitus, with a component of steroid-induced hyperglycemia 5 diabetic retinopathy and nephropathy 6 chronic renal failure, stage III chronic kidney disease 7 morbidly obesity Plan Continue same treatment. Monitor renal function. Add oral Zithromax. Prednisone burst taper. Move the patient out to a medical floor. The patient is off the Cleviprex drip.
[2017-11-17 17:19] LABS: Glucose,Whole Blood 222 mg/dL (75-99)
[2017-11-17 20:45] LABS: Glucose,Whole Blood 273 mg/dL (75-99)
[2017-11-17] MEDS: ZOLPIDEM 10 MG TAB PO SCH (21:35)
[2017-11-18] MEDS: IPRATROPIUM-ALBUTEROL 3 ML NEB INHALATION PRN ×4 (07:00→19:27)
[2017-11-18] MEDS: SYMBICORT 160-4.5 MCG INHALER INHALATION SCH ×2 (07:00→19:27)
[2017-11-18 07:26] LABS: Glucose,Whole Blood 217 mg/dL (75-99)
[2017-11-18 08:27] LABS: Basophils % (A) 0 %; Eosinophils % (A) 1 %; HCT 32.8 % (34.0-46.0); HGB 11.1 gm/dL (11.4-16.0); Lymphocytes # (A) 0.9 k/uL (1.0-4.8); Lymphocytes % (A) 15 %; MCH 28.5 pg (25.0-35.0); MCHC 33.7 g/dL (31.0-37.0); MCV 84.5 fL (80.0-100.0); Mean Platelet Volume 6.8; Monocytes # (A) 0.4 k/uL (0-1.0); Monocytes % (A) 7 %; Neutrophils # (A) 4.6 k/uL (1.3-7.7); Neutrophils % (A) 76 %; Platelet Count 244 k/uL (150-450); RBC 3.88 m/uL (3.80-5.40); RDW 14.4 % (11.5-15.5)
[2017-11-18 08:35] LABS: Calcium 9.4 mg/dL (8.4-10.2); Magnesium 2.2 mg/dL (1.6-2.3); Potassium 4.6 mmol/L (3.5-5.1)
[2017-11-18] MEDS: cloNIDine HCL 0.2 MG TAB PO SCH ×3 (08:46→21:39)
[2017-11-18] MEDS: amLODIPine 10 MG TAB PO SCH (08:46)
[2017-11-18] MEDS: CHLORTHALIDONE 25 MG TAB PO SCH (08:46)
[2017-11-18] MEDS: ATORVASTATIN 80 MG TAB PO SCH (08:46)
[2017-11-18] MEDS: CARVEDILOL 12.5 MG TAB PO SCH ×2 (08:46→17:03)
[2017-11-18] MEDS: GABAPENTIN 300 MG CAP PO SCH ×3 (08:46→21:39)
[2017-11-18] MEDS: CITALOPRAM HYDROBROMIDE 20 MG TAB PO SCH (08:46)
[2017-11-18] MEDS: HEPARIN SODIUM,PORCINE 5,000 UNIT/ML 1 ML VIAL SQ SCH ×3 (08:47→23:22)
[2017-11-18] MEDS: AZITHROMYCIN 250 MG TAB PO SCH (08:47)
[2017-11-18] MEDS: PANTOPRAZOLE 40 MG TABLET PO SCH (08:47)
[2017-11-18] MEDS: predniSONE 20 MG TAB PO SCH (08:47)
[2017-11-18] MEDS: LORATADINE 10 MG TAB PO SCH (08:47)
[2017-11-18] MEDS: ACETAMINOPHEN TAB 325 MG TAB PO PRN (08:57)
[2017-11-18] MEDS: INSULIN ASPART 100 UNIT/ML 1 ML 10 ML VIAL SQ SCH ×4 (08:57→21:38)
[2017-11-18] MEDS: INSULN ASP PRT/INSULIN ASPART 100 UNIT/ML 10 ML VIAL SQ SCH ×2 (09:01→17:12)
[2017-11-18] MEDS ORDERED: BENZOCAINE/MENTHOL LOZENG 1 EACH LOZENGE MUCOUS MEM PRN (11:58)
[2017-11-18 12:21] LABS: Glucose,Whole Blood 87 mg/dL (75-99)
--- NOTE | 2017-11-18 12:26 | P.PN ---
Subjective Patient is seen in follow-up for acute kidney injury and uncontrolled hypertension. Blood pressure is now better controlled. Patient still feels dyspneic due to underlying asthma. Admits to good urine output. No vomiting or diarrhea. Denies chest pain. Creatinine stable at 2.3. Vital signs are stable. General: The patient appeared well nourished and normally developed. HEENT: Head exam is unremarkable. Neck is without jugular venous distension. LUNGS: Lungs are clear to auscultation and percussion. Breath sounds decreased. HEART: Rate and Rhythm are regular. First and second heart sounds normal. No murmurs, rubs or gallops. ABDOMEN: Abdominal exam reveals normal bowel sounds. Non-tender and non- distended. No evidence of peritonitis. EXTREMITITES: No clubbing, cyanosis, or edema. Objective - Vital Signs Vital signs: Vital Signs Temp 97.9 F 11/18/17 06:30 Pulse 66 11/18/17 11:26 Resp 16 11/18/17 06:30 BP 147/85 11/18/17 06:30 Pulse Ox 97 11/18/17 06:30 Intake & Output 11/17/17 11/18/17 11/18/17 18:59 06:59 18:59 Intake Total 360 0 Output Total 700 Balance -340 0 Intake: IV 0 NS 0 Oral 360 Output: Urine 700 Other: Voiding Method Toilet # Voids 2 - Labs CBC & Chem 7: 11/18/17 07:21 11/18/17 07:21 Labs: Abnormal Lab Results - Last 24 Hours (Table) 11/17/17 11/17/17 11/18/17 Range/Units 17:17 20:43 07:12 Hgb (11.4-16.0) gm/dL Hct (34.0-46.0) % Lymphocytes # (1.0-4.8) k/uL Carbon Dioxide (22-30) mmol/L BUN (7-17) mg/dL Creatinine (0.52-1.04) mg/dL Glucose (74-99) mg/dL POC Glucose (mg/dL) 222 H 273 H 217 H (75-99) mg/dL 11/18/17 11/18/17 Range/Units 07:21 07:21 Hgb 11.1 L (11.4-16.0) gm/dL Hct 32.8 L (34.0-46.0) % Lymphocytes # 0.9 L (1.0-4.8) k/uL Carbon Dioxide 19 L (22-30) mmol/L BUN 64 H (7-17) mg/dL Creatinine 2.31 H (0.52-1.04) mg/dL Glucose 194 H (74-99) mg/dL POC Glucose (mg/dL) (75-99) mg/dL Microbiology - Last 24 Hours (Table) 11/14/17 22:16 Blood Culture - Preliminary Blood No Growth after 72 hours Assessment and Plan Plan: Assessment: 1. Nonoliguric acute kidney injury secondary to ATN secondary to hemodynamic instability. Creatinine stable at 2.31 today. 2. Hypertension with chronic kidney disease. Controlled. 3. Insulin-dependent diabetes mellitus. 4. Metabolic acidosis secondary to acute kidney injury. 5. Chronic kidney disease stage III with baseline creatinine in the range of 1.6-1.7 secondary to diabetic kidney disease. Plan: Maintain current antihypertensives. Avoid nephrotoxic agents and hypotensive episodes. Hold off on MEG inhibitor for now. He can be started as an outpatient once GFR returns to baseline. Repeat electrolytes in the morning. Monitor bicarb.
--- NOTE | 2017-11-18 12:45 | P.PN ---
Subjective Progress Note Date: 11/18/17 Principal diagnosis: Acute exacerbation of mild intermittent chronic bronchial asthma. A very pleasant 52-year-old obese female patient with known history of bronchial asthma maintained on Symbicort on outpatient basis. The patient is also known to have hypertension and she has been off her antihypertensive medication for a few days. She has been on a combination of Norvasc, lisinopril and metoprolol and outpatient basis. The patient came into the hospital yesterday because of worsening shortness of breath. She was getting progressive dyspnea chest tightness and wheezing and bronchospasm. She had also some limited cough and congestion. In general, her asthma has been under good control. She did not require frequent hospitalizations or any other care regarding asthma control. However, she reports to have difficulties with blood pressure control. Since her arrival to the hospital the patient was having elevated blood pressure with systolics [id number]. In emergency department the patient was started on Cleviprex drip for blood pressure control. This morning the blood pressures under better control. The patient will be started back on the oral antihypertensive medication. No chest pain. No angina. No swelling in lower extremities. The patient is diabetic. The patient has diabetic retinopathy and nephropathy. The patient is currently on steroids and the patient has developed some mild steroid-induced hyperglycemia. Troponins are minimally elevated and the proBNP level is 3500. Echocardiogram was also ordered. The echocardiogram showed an ejection fraction of 65%. No other significant abnormalities. There is evidence of severe concentric left ventricular hypertrophy consistent hypertensive heart disease. CT of the chest was done and the burst department and showed no acute abnormalities. There is some interstitial congestion related to fluids. On 11/16/2017. Seeing this patient for a follow-up. In terms of her asthma she is less short of breath compared to yesterday. She is on DuoNeb neb last treatment [id number] and Symbicort. The patient is also on IV Solu- Medrol. She has a little some steroid-induced hyperglycemia. She is on 7030 insulin 35 units in the morning and 25 units in the evening along with a sliding scale coverage. Blood sugars ranging to 250 and 350. In addition, the patient is still on 1 mg of Cleviprex infusion. Blood pressure is under better control and we are gradually to using the oral antihypertensive medication and the patient is currently on a combination of clonidine 0.1 mg 3 times a day, losartan 50 mg by mouth daily metoprolol 100 mg by mouth twice a day and hydrochlorothiazide 25 mg by mouth daily. Her creatinine is up to 2.4. Rest of the electrolytes show a component of non-anion gap metabolic acidosis. Hemoglobin stable at 9.2. She has no chest pain. Some limited cough and congestion still present. No other new complaints otherwise for now. On 11/17/2017, the patient is off the Cleviprex drip. The patient is doing well. No complaints other than some residual chest congestion and the patient is unable to bring up any mucus. No sugars under better control. The patient on a combination of clonidine 0.2 mg 3 times a day, Coreg, hydrochlorothiazide and Norvasc. She is on prednisone burst taper. She remains in the intensive care unit. No chest pain. No swelling lower extremities. Renal function is stable with a creatinine of 2.3. The patient is seen again today 11/18/2017 in follow-up on the regular medical floor. She is currently sitting up in a chair at the bedside. She is awake and alert in no acute distress. She still has a loose nonproductive cough some shortness of breath on exertion. Difficulty clearing secretions. She remains on oral antibiotics a prednisone burst and taper and bronchodilators. Mucinex has been added. She is maintaining good O2 saturations in the upper 90s on room air. She's been afebrile. Blood cultures reveal no growth. Count 6.0. Hemoglobin 11.1. Creatinine 2.31. Objective - Vital Signs Vital signs: Vital Signs Temp 97.9 F 11/18/17 06:30 Pulse 66 11/18/17 11:26 Resp 16 11/18/17 06:30 BP 147/85 11/18/17 06:30 Pulse Ox 97 11/18/17 06:30 Intake & Output 11/17/17 11/18/17 11/18/17 18:59 06:59 18:59 Intake Total 360 0 Output Total 700 Balance -340 0 Intake: IV 0 NS 0 Oral 360 Output: Urine 700 Other: Voiding Method Toilet # Voids 2 - Exam Gen. Orbital he obese. Appearance the patient is calm comfortable likely distress. Resting comfortably in bed. No signs of any respiratory distress or use of accessory muscles of breathing. Head exam was generally normal. There was no scleral icterus or corneal arcus. Mucous membranes were moist. Neck was supple and without jugular venous distension, thyromegaly, or carotid bruits. Carotids were easily palpable bilaterally. There was no adenopathy. Patient has significant crowding of the posterior oropharynx and the patient has a Mallampati class IV Lung sounds are diminished bilaterally along with that there is diffuse expiratory wheezes heard throughout the lung li and prolongation of expiratory phase of breathing. Cardiac exam revealed the PMI to be normally situated and sized. The rhythm was regular and no extrasystoles were noted during several minutes of auscultation. The first and second heart sounds were normal and physiologic splitting of the second heart sound was noted. There were no murmurs, rubs, clicks, or gallops. Abdomen is obese soft nontender and organs cannot be accurately palpated Examination of the extremities revealed easily palpable radial, femoral and pedal pulses. There was no cyanosis, clubbing or edema. Neurologically awake and alert and is no focal neurological deficit Examination of the skin revealed no evidence of significant rashes, suspicious appearing nevi or other concerning lesions. - Labs CBC & Chem 7: 11/18/17 07:21 11/18/17 07:21 Labs: Abnormal Lab Results - Last 24 Hours (Table) 11/17/17 11/17/17 11/18/17 Range/Units 17:17 20:43 07:12 Hgb (11.4-16.0) gm/dL Hct (34.0-46.0) % Lymphocytes # (1.0-4.8) k/uL Carbon Dioxide (22-30) mmol/L BUN (7-17) mg/dL Creatinine (0.52-1.04) mg/dL Glucose (74-99) mg/dL POC Glucose (mg/dL) 222 H 273 H 217 H (75-99) mg/dL 11/18/17 11/18/17 Range/Units 07:21 07:21 Hgb 11.1 L (11.4-16.0) gm/dL Hct 32.8 L (34.0-46.0) % Lymphocytes # 0.9 L (1.0-4.8) k/uL Carbon Dioxide 19 L (22-30) mmol/L BUN 64 H (7-17) mg/dL Creatinine 2.31 H (0.52-1.04) mg/dL Glucose 194 H (74-99) mg/dL POC Glucose (mg/dL) (75-99) mg/dL Microbiology - Last 24 Hours (Table) 11/14/17 22:16 Blood Culture - Preliminary Blood No Growth after 72 hours Assessment and Plan Assessment: Assessment 1 acute asthma exacerbation with secondary shortness of breath. Acute asthma exacerbation is improving slowly. The patient continues to have some residual cough and congestion and she is unable to bring up any sputum. We'll add antibiotics for symptoms of tracheal bronchitis. 2 hypertensive urgency currently off Cleviprex drip for blood pressure control. The BP is under better control for now. The patient is asymptomatic. 3 hypertensive heart disease with concentric left ventricular hypertrophy 4 diabetes mellitus, with a component of steroid-induced hyperglycemia 5 diabetic retinopathy and nephropathy 6 chronic renal failure, stage III chronic kidney disease 7 morbidly obesity Plan: The patient was seen and evaluated by Dr. Blanc. She is improved from the pulmonary standpoint. She still not quite back to her baseline. Probable discharge in the next 24 hours. She remains on a prednisone taper. Oral antibiotics. Bronchodilators. We'll increase her activity as tolerated. I, the cosigning physician, performed a history & physical examination of the patient. Lungs sounds with few scattered rhonchi and expiratory wheeze. Maintaining good O2 saturations in the 90s on room air. I discussed the assessment and plan of care with my nurse practitioner, Preethi Magallon. I attest to the above note as dictated by her.
[2017-11-18] MEDS: guaiFENesin 600 MG TABLET.ER PO SCH ×2 (13:01→21:39)
[2017-11-18] MEDS: FLUTICASONE 50MCG/SPRAY NASAL 16GM EA NOSTRIL SCH (13:02)
--- NOTE | 2017-11-18 13:06 | P.PN ---
Subjective Progress Note Date: 11/18/17 Principal diagnosis: Pt. reports that her breathing is slightly better but unable to cough up phlegm and also reports that she was on FLONASE at home which was not started at this admission and is requesting it. Pt. denies CP, worsening SOB, Palpitations, F/C , N/V, Diaphoresis and Dizziness and denies rest of the ROS. Objective - Vital Signs Vital signs: Vital Signs Temp 97.9 F 11/18/17 06:30 Pulse 66 11/18/17 11:26 Resp 16 11/18/17 06:30 BP 147/85 11/18/17 06:30 Pulse Ox 97 11/18/17 06:30 Intake & Output 11/17/17 11/18/17 11/18/17 18:59 06:59 18:59 Intake Total 360 0 Output Total 700 Balance -340 0 Intake: IV 0 NS 0 Oral 360 Output: Urine 700 Other: Voiding Method Toilet # Voids 2 - Constitutional General appearance: Present: cooperative, mild distress, morbidly obese - EENT Eyes: Present: EOMI, normal appearance - Respiratory Respiratory: bilateral: diminished, rhonchi, wheezing (Scattered), prolonged expiration, negative: dullness, rales - Cardiovascular Rhythm: regular Heart sounds: normal: S1, S2 - Gastrointestinal General gastrointestinal: Present: normal bowel sounds, soft - Neurologic Neurologic: Present: CNII-XII intact. Absent: focal deficits - Psychiatric Psychiatric: Present: A&O x's 3, appropriate affect, intact judgment & insight - Labs CBC & Chem 7: 11/18/17 07:21 11/18/17 07:21 Labs: Abnormal Lab Results - Last 24 Hours (Table) 11/17/17 11/17/17 11/18/17 Range/Units 17:17 20:43 07:12 Hgb (11.4-16.0) gm/dL Hct (34.0-46.0) % Lymphocytes # (1.0-4.8) k/uL Carbon Dioxide (22-30) mmol/L BUN (7-17) mg/dL Creatinine (0.52-1.04) mg/dL Glucose (74-99) mg/dL POC Glucose (mg/dL) 222 H 273 H 217 H (75-99) mg/dL 11/18/17 11/18/17 Range/Units 07:21 07:21 Hgb 11.1 L (11.4-16.0) gm/dL Hct 32.8 L (34.0-46.0) % Lymphocytes # 0.9 L (1.0-4.8) k/uL Carbon Dioxide 19 L (22-30) mmol/L BUN 64 H (7-17) mg/dL Creatinine 2.31 H (0.52-1.04) mg/dL Glucose 194 H (74-99) mg/dL POC Glucose (mg/dL) (75-99) mg/dL Microbiology - Last 24 Hours (Table) 11/14/17 22:16 Blood Culture - Preliminary Blood No Growth after 72 hours Assessment and Plan (1) Asthma exacerbation Current Visit: Yes Status: Acute Code(s): J45.901 - UNSPECIFIED ASTHMA WITH (ACUTE) EXACERBATION SNOMED Code(s): 639196409 (2) Chronic kidney disease, stage III (moderate) Current Visit: Yes Status: Acute Priority: Medium Code(s): N18.3 - CHRONIC KIDNEY DISEASE, STAGE 3 (MODERATE) SNOMED Code(s): 793101708 (3) Type 2 diabetes mellitus with hyperglycemia Current Visit: Yes Status: Acute Priority: Medium Code(s): E11.65 - TYPE 2 DIABETES MELLITUS WITH HYPERGLYCEMIA SNOMED Code(s): 285234217836877 (4) Hypertensive emergency Current Visit: Yes Status: Resolved Priority: Medium Code(s): I16.1 - HYPERTENSIVE EMERGENCY SNOMED Code(s): 945074090338857 Plan: Pt. will be started on Mucinex for 24 horus to see if she is able to cough up and clear her airways, she will also be given some CIPACOL lozenges to help sooth her throat. Pt's care was coordinated with Pulmonary and nephro teams and will resume her home dose of FLONASE. Pt's renal functions are progressively declining with goo urine output and nephrology is on the case and their input appreciated. If pt. continous to improve the way she is slowly than she will be able to go home in 24 to 48 hours. Pt's was in the room with pt. and he was updated per pt's verbal consent and all questions were answered. Time with Patient: Less than 30
[2017-11-18 17:13] LABS: Glucose,Whole Blood 248 mg/dL (75-99)
[2017-11-18 21:22] LABS: Glucose,Whole Blood 199 mg/dL (75-99)
[2017-11-18] MEDS: ZOLPIDEM 10 MG TAB PO SCH (21:38)
[2017-11-19 07:31] LABS: Glucose,Whole Blood 209 mg/dL (75-99)
[2017-11-19 08:11] LABS: Calcium 9.5 mg/dL (8.4-10.2); Magnesium 2.2 mg/dL (1.6-2.3); Potassium 4.7 mmol/L (3.5-5.1)
[2017-11-19] MEDS: SYMBICORT 160-4.5 MCG INHALER INHALATION SCH ×2 (08:20→19:59)
[2017-11-19] MEDS: IPRATROPIUM-ALBUTEROL 3 ML NEB INHALATION PRN ×2 (08:20→15:45)
[2017-11-19] MEDS: PANTOPRAZOLE 40 MG TABLET PO SCH (08:30)
[2017-11-19] MEDS: AZITHROMYCIN 250 MG TAB PO SCH (08:30)
[2017-11-19] MEDS: CITALOPRAM HYDROBROMIDE 20 MG TAB PO SCH (08:30)
[2017-11-19] MEDS: amLODIPine 10 MG TAB PO SCH (08:30)
[2017-11-19] MEDS: cloNIDine HCL 0.2 MG TAB PO SCH ×3 (08:30→21:49)
[2017-11-19] MEDS: LORATADINE 10 MG TAB PO SCH (08:30)
[2017-11-19] MEDS: ATORVASTATIN 80 MG TAB PO SCH (08:30)
[2017-11-19] MEDS: GABAPENTIN 300 MG CAP PO SCH ×3 (08:30→21:49)
[2017-11-19] MEDS: CARVEDILOL 12.5 MG TAB PO SCH ×2 (08:30→18:01)
[2017-11-19] MEDS: CHLORTHALIDONE 25 MG TAB PO SCH (08:30)
[2017-11-19] MEDS: HEPARIN SODIUM,PORCINE 5,000 UNIT/ML 1 ML VIAL SQ SCH ×3 (08:31→23:37)
[2017-11-19] MEDS: INSULIN ASPART 100 UNIT/ML 1 ML 10 ML VIAL SQ SCH ×4 (08:31→21:47)
[2017-11-19] MEDS: predniSONE 20 MG TAB PO SCH (08:31)
[2017-11-19] MEDS: FLUTICASONE 50MCG/SPRAY NASAL 16GM EA NOSTRIL SCH (08:31)
[2017-11-19] MEDS: guaiFENesin 600 MG TABLET.ER PO SCH (08:32)
[2017-11-19] MEDS: INSULN ASP PRT/INSULIN ASPART 100 UNIT/ML 10 ML VIAL SQ SCH ×2 (09:15→18:02)
--- NOTE | 2017-11-19 11:30 | P.PN ---
Subjective Patient is seen in follow-up for acute kidney injury and uncontrolled hypertension. Blood pressure is now better controlled. Dyspnea is improved as well. Admits to good urine output. No vomiting or diarrhea. Denies chest pain. Creatinine stable at 2.3. Vital signs are stable. General: The patient appeared well nourished and normally developed. HEENT: Head exam is unremarkable. Neck is without jugular venous distension. LUNGS: Lungs are clear to auscultation and percussion. Breath sounds decreased. HEART: Rate and Rhythm are regular. First and second heart sounds normal. No murmurs, rubs or gallops. ABDOMEN: Abdominal exam reveals normal bowel sounds. Non-tender and non- distended. No evidence of peritonitis. EXTREMITITES: No clubbing, cyanosis, or edema. Objective - Vital Signs Vital signs: Vital Signs Temp 97.6 F 11/19/17 05:55 Pulse 68 11/19/17 08:35 Resp 16 11/19/17 05:55 BP 145/80 11/19/17 05:55 Pulse Ox 94 L 11/19/17 05:55 Intake & Output 11/18/17 11/19/17 11/19/17 18:59 06:59 18:59 Intake Total 900 Balance 900 Intake: Oral 900 Other: # Voids 3 2 - Labs CBC & Chem 7: 11/18/17 07:21 11/19/17 06:56 Labs: Abnormal Lab Results - Last 24 Hours (Table) 11/18/17 11/18/17 11/19/17 Range/Units 17:02 20:46 06:56 BUN 66 H (7-17) mg/dL Creatinine 2.35 H (0.52-1.04) mg/dL Glucose 191 H (74-99) mg/dL POC Glucose (mg/dL) 248 H 199 H (75-99) mg/dL 11/19/17 Range/Units 07:24 BUN (7-17) mg/dL Creatinine (0.52-1.04) mg/dL Glucose (74-99) mg/dL POC Glucose (mg/dL) 209 H (75-99) mg/dL Microbiology - Last 24 Hours (Table) 11/14/17 22:16 Blood Culture - Preliminary Blood No Growth after 96 hours Assessment and Plan Plan: Assessment: 1. Nonoliguric acute kidney injury secondary to ATN secondary to hemodynamic instability. Creatinine stable at 2.35 today. 2. Hypertension with chronic kidney disease. Controlled. 3. Insulin-dependent diabetes mellitus. 4. Metabolic acidosis secondary to acute kidney injury. Improved. 5. Chronic kidney disease stage III with baseline creatinine in the range of 1.6-1.7 secondary to diabetic kidney disease. Plan: Maintain current antihypertensives. Avoid nephrotoxic agents and hypotensive episodes. Hold off on MEG inhibitor for now. It can be started as an outpatient once GFR returns to baseline. Anticipate discharge soon. She will need to follow-up as an outpatient in the next 1-2 weeks.
[2017-11-19 12:31] LABS: Glucose,Whole Blood 102 mg/dL (75-99)
[2017-11-19] MEDS: ERGOCALCIFEROL 50,000 UNIT CAP PO SCH (13:02)
--- NOTE | 2017-11-19 15:20 | P.PN ---
Subjective Progress Note Date: 11/19/17 Principal diagnosis: Patient reported that she is breathing better and abusive next helped her lose and some phlegm. Patient also stated the following is also help in decreasing the congestion. Patient blood pressure was monitored and is fairly controlled. She is tolerating azithromycin well. Patient is not drinking enough fluid orally and her BUN and creatinine and slightly creeping up and today 66/2.35 respectively. Patient blood cultures are negative to date and bicarb is improved from 17 to 23. Patient will be requiring tapering dose of steroids for her asthma exacerbation due to acute bronchitis and she is being followed by nephrology Dr. Payton for her renal failure. Patient denies chest pain, palpitation, fever, chills, nausea, vomiting, diarrhea, diaphoresis, dizziness and denies rest of the review of system. Objective - Vital Signs Vital signs: Vital Signs Temp 97.6 F 11/19/17 05:55 Pulse 68 11/19/17 08:35 Resp 16 11/19/17 05:55 BP 145/80 11/19/17 05:55 Pulse Ox 94 L 11/19/17 05:55 Intake & Output 11/18/17 11/19/17 11/19/17 18:59 06:59 18:59 Intake Total 900 Balance 900 Intake: Oral 900 Other: # Voids 3 2 - Constitutional General appearance: Present: cooperative, morbidly obese, no acute distress - EENT Eyes: Present: EOMI, normal appearance - Neck Neck: Present: normal ROM. Absent: lymphadenopathy, rigidity, stridor, thyromegaly - Respiratory Respiratory: bilateral: CTA, negative: diminished, dullness, rales, rhonchi, wheezing, prolonged expiration, prolonged inspiration - Cardiovascular Rhythm: regular Heart sounds: normal: S1, S2 Abnormal Heart Sounds: Absent: systolic murmur, diastolic murmur, rub, S3 Gallop , S4 Gallop, click - Gastrointestinal General gastrointestinal: Present: normal bowel sounds, soft. Absent: tenderness - Neurologic Neurologic: Present: CNII-XII intact, focal deficits - Psychiatric Psychiatric: Present: A&O x's 3, appropriate affect, intact judgment & insight - Labs CBC & Chem 7: 11/18/17 07:21 11/19/17 06:56 Labs: Abnormal Lab Results - Last 24 Hours (Table) 11/18/17 11/18/17 11/19/17 Range/Units 17:02 20:46 06:56 BUN 66 H (7-17) mg/dL Creatinine 2.35 H (0.52-1.04) mg/dL Glucose 191 H (74-99) mg/dL POC Glucose (mg/dL) 248 H 199 H (75-99) mg/dL 11/19/17 11/19/17 Range/Units 07:24 12:27 BUN (7-17) mg/dL Creatinine (0.52-1.04) mg/dL Glucose (74-99) mg/dL POC Glucose (mg/dL) 209 H 102 H (75-99) mg/dL Microbiology - Last 24 Hours (Table) 11/14/17 22:16 Blood Culture - Preliminary Blood No Growth after 96 hours Assessment and Plan (1) Asthma exacerbation Current Visit: Yes Status: Acute Code(s): J45.901 - UNSPECIFIED ASTHMA WITH (ACUTE) EXACERBATION SNOMED Code(s): 129070598 (2) Chronic kidney disease, stage III (moderate) Current Visit: Yes Status: Acute Priority: Medium Code(s): N18.3 - CHRONIC KIDNEY DISEASE, STAGE 3 (MODERATE) SNOMED Code(s): 436584343 (3) Type 2 diabetes mellitus with hyperglycemia Current Visit: Yes Status: Acute Priority: Medium Code(s): E11.65 - TYPE 2 DIABETES MELLITUS WITH HYPERGLYCEMIA SNOMED Code(s): 209999698351336 (4) Hypertensive emergency Current Visit: Yes Status: Resolved Priority: Medium Code(s): I16.1 - HYPERTENSIVE EMERGENCY SNOMED Code(s): 978372997895088 Plan: Patient will continue current management I will check her basic panel in the morning and she was encouraged to drink oral fluids. Patient was advised to have 4-5, 16 ounce cups of water daily and she was educated about her worsening renal function. Patient was seen by Dr. Babb from nephrology today and there recommended discharge from his standpoint. Patient will be continued on Mucinex and Flonase for now. 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 Time with Patient: Less than 30
[2017-11-19 17:51] LABS: Glucose,Whole Blood 287 mg/dL (75-99)
[2017-11-19] MEDS: ALBUTEROL NEBULIZED 2.5 MG/3 ML INHALATION PRN (19:59)
[2017-11-19 20:49] LABS: Glucose,Whole Blood 247 mg/dL (75-99)
[2017-11-19] MEDS ORDERED: BISACODYL 5 MG TABLET.DR PO SCH (21:00)
[2017-11-19] MEDS: ZOLPIDEM 10 MG TAB PO SCH (21:46)
[2017-11-19 23:37] VITALS: RESP 18
[2017-11-20 06:38] VITALS: BP 163/81; TEMP 97.9
[2017-11-20] MEDS: CARVEDILOL 12.5 MG TAB PO SCH (06:47)
[2017-11-20 07:19] LABS: Glucose,Whole Blood 167 mg/dL (75-99)
[2017-11-20] MEDS: SYMBICORT 160-4.5 MCG INHALER INHALATION SCH (07:25)
[2017-11-20] MEDS: IPRATROPIUM-ALBUTEROL 3 ML NEB INHALATION PRN (07:25)
[2017-11-20 07:28] VITALS: PULSE 72
[2017-11-20 08:12] LABS: Calcium 9.7 mg/dL (8.4-10.2); Potassium 4.6 mmol/L (3.5-5.1)
[2017-11-20] MEDS: FLUTICASONE 50MCG/SPRAY NASAL 16GM EA NOSTRIL SCH (08:13)
[2017-11-20] MEDS: LORATADINE 10 MG TAB PO SCH (08:14)
[2017-11-20] MEDS: amLODIPine 10 MG TAB PO SCH (08:14)
[2017-11-20] MEDS: HEPARIN SODIUM,PORCINE 5,000 UNIT/ML 1 ML VIAL SQ SCH (08:14)
[2017-11-20] MEDS: GABAPENTIN 300 MG CAP PO SCH (08:14)
[2017-11-20] MEDS: predniSONE 20 MG TAB PO SCH (08:14)
[2017-11-20] MEDS: CITALOPRAM HYDROBROMIDE 20 MG TAB PO SCH (08:15)
[2017-11-20] MEDS: INSULN ASP PRT/INSULIN ASPART 100 UNIT/ML 10 ML VIAL SQ SCH (08:15)
[2017-11-20] MEDS: AZITHROMYCIN 250 MG TAB PO SCH (08:15)
[2017-11-20] MEDS: INSULIN ASPART 100 UNIT/ML 1 ML 10 ML VIAL SQ SCH ×2 (08:15→12:24)
[2017-11-20] MEDS: ATORVASTATIN 80 MG TAB PO SCH (08:15)
[2017-11-20] MEDS: CHLORTHALIDONE 25 MG TAB PO SCH (08:15)
[2017-11-20] MEDS: PANTOPRAZOLE 40 MG TABLET PO SCH (08:15)
[2017-11-20] MEDS: cloNIDine HCL 0.2 MG TAB PO SCH (08:24)
--- NOTE | 2017-11-20 11:38 | P.DS ---
Providers Date of admission: 11/14/17 19:58 Expected date of discharge: 11/20/17 Attending physician: Declan Lemons MD Consults: 11/14/17 19:58 Consult Physician Stat Consulting Provider: Imelda Blanc Consult Reason/Comments: Hypertensive Emergency Do you want consulting provider notified?: Yes 11/14/17 21:49 Consult Physician Routine Consulting Provider: Nasir Goddard Consult Reason/Comments: cardiomegaly Do you want consulting provider notified?: Yes, Notify in am 11/14/17 21:51 Consult Physician Routine Consulting Provider: Felecia Dallas Consult Reason/Comments: renal failure Do you want consulting provider notified?: Yes, Notify in am Primary care physician: Susan Galarza - Discharge Diagnosis(es) (1) Asthma exacerbation Current Visit: Yes Status: Acute (2) Chronic kidney disease, stage III (moderate) Current Visit: Yes Status: Acute Priority: Medium (3) Type 2 diabetes mellitus with hyperglycemia Current Visit: Yes Status: Acute Priority: Medium (4) Hypertensive emergency Current Visit: Yes Status: Resolved Priority: Medium Hospital Course: This is a 52-year-old female that was admitted with symptoms of shortness of breath. Patient was treated with IV steroids and nebulizer treatments. Currently is feeling better. Patient will be discharged home on prednisone tapering dose. Patient was found to have uncontrolled blood pressures while she was here she was started on clonidine and metoprolol switched to Coreg. Really better controlled. Discharge time spent discharging 31 minutes Patient Condition at Discharge: Stable Plan - Discharge Summary Discharge Rx Participant: Yes New Discharge Prescriptions: New Chlorthalidone [Hygroton] 25 mg PO DAILY #30 tab Carvedilol [Coreg*] 25 mg PO BID-W/MEALS #60 tab cloNIDine HCL [Catapres] 0.2 mg PO TID #90 tab predniSONE 10 mg PO DAILY #30 tab Continue Insulin Aspart Protam & Aspart [NovoLOG MIX 70-30 Flexpen] 35 unit SQ AC- BRKFST amLODIPine [Norvasc] 10 mg PO DAILY Gabapentin 600 mg PO TID Citalopram Hydrobromide [CeleXA] 40 mg PO DAILY Albuterol Sulfate [Proair Hfa] 2 puff INHALATION RT-Q4H PRN PRN Reason: Shortness Of Breath Insulin Aspart Protam & Aspart [NovoLOG MIX 70-30 Flexpen] 25 unit SQ AC- SUPPER Fluticasone Nasal [place] [Flonase Nasal [place]] 1 - 2 spray EA NOSTRIL DAILY PRN PRN Reason: Allergy Symptoms Zolpidem [Ambien] 10 mg PO HS Budesonide/Formoterol Fumarate [Symbicort 160-4.5 Mcg Inhaler] 2 puff INHALATION RT-BID Pantoprazole [Protonix] 40 mg PO DAILY Ondansetron HCl [Zofran] 8 mg PO BID PRN PRN Reason: Nausea Gemfibrozil [Lopid] 600 mg PO AC-BID Cetirizine HCl [Zyrtec] 10 mg PO DAILY Albuterol Nebulized [Ventolin Nebulized] 2.5 mg INHALATION RT-QID PRN PRN Reason: Shortness Of Breath Discontinued Metoprolol Tartrate [Lopressor] 100 mg PO BID Insulin Aspart Protam & Aspart [NovoLOG MIX 70-30 Flexpen] See Protocol SQ AC -BID Discharge Medication List Albuterol Sulfate [Proair Hfa] 2 puff INHALATION RT-Q4H PRN 02/25/17 [History] Citalopram Hydrobromide [CeleXA] 40 mg PO DAILY 02/25/17 [History] Gabapentin 600 mg PO TID 02/25/17 [History] Insulin Aspart Protam & Aspart [NovoLOG MIX 70-30 Flexpen] 25 unit SQ AC-SUPPER 02/25/17 [History] Insulin Aspart Protam & Aspart [NovoLOG MIX 70-30 Flexpen] 35 unit SQ AC-BRKFST 02/25/17 [History] amLODIPine [Norvasc] 10 mg PO DAILY 02/25/17 [History] Fluticasone Nasal [place] [Flonase Nasal [place]] 1 - 2 spray EA NOSTRIL DAILY PRN 08/15/17 [History] Albuterol Nebulized [Ventolin Nebulized] 2.5 mg INHALATION RT-QID PRN 11/14/17 [ History] Budesonide/Formoterol Fumarate [Symbicort 160-4.5 Mcg Inhaler] 2 puff INHALATION RT-BID 11/14/17 [History] Cetirizine HCl [Zyrtec] 10 mg PO DAILY 11/14/17 [History] Gemfibrozil [Lopid] 600 mg PO AC-BID 11/14/17 [History] Ondansetron HCl [Zofran] 8 mg PO BID PRN 11/14/17 [History] Pantoprazole [Protonix] 40 mg PO DAILY 11/14/17 [History] Zolpidem [Ambien] 10 mg PO HS 11/14/17 [History] Carvedilol [Coreg*] 25 mg PO BID-W/MEALS #60 tab 11/20/17 [Rx] Chlorthalidone [Hygroton] 25 mg PO DAILY #30 tab 11/20/17 [Rx] cloNIDine HCL [Catapres] 0.2 mg PO TID #90 tab 11/20/17 [Rx] predniSONE 10 mg PO DAILY #30 tab 11/20/17 [Rx] Follow up Appointment(s)/Referral(s): [facility], [NON-STAFF] - Susan Galarza MD [Primary Care Provider] - 1-2 days Nasir Goddard MD [STAFF PHYSICIAN] - 2 Weeks Patient Instructions/Handouts: Type 2 Diabetes in Adults (DC), Chronic Hypertension (DC)
[2017-11-20 12:18] LABS: Glucose,Whole Blood 79 mg/dL (75-99)
--- NOTE | 2017-11-20 12:48 | PN ---
PROGRESS NOTE DATE OF SERVICE: 11/17/2017 This patient was admitted with uncontrolled hypertension and acute episode of asthma. Patient is feeling better. Her blood pressure has been controlled over the last 24 hours. She denies any shortness of breath. The patient's creatinine has increased to 2.3. In view of this, the MEG inhibitors were discontinued. First and second heart sounds are normal. Lungs are clinically clear to auscultation and percussion. Abdomen is soft, There is no evidence of any overt left ventricular failure. We will continue the patient on the current medications and will follow up as an outpatient. MMODL / IJN: [id number] /
--- NOTE | 2017-11-20 12:48 | P.PN ---
Subjective Progress Note Date: 11/20/17 Principal diagnosis: Acute exacerbation of mild intermittent chronic bronchial asthma. A very pleasant 52-year-old obese female patient with known history of bronchial asthma maintained on Symbicort on outpatient basis. The patient is also known to have hypertension and she has been off her antihypertensive medication for a few days. She has been on a combination of Norvasc, lisinopril and metoprolol and outpatient basis. The patient came into the hospital yesterday because of worsening shortness of breath. She was getting progressive dyspnea chest tightness and wheezing and bronchospasm. She had also some limited cough and congestion. In general, her asthma has been under good control. She did not require frequent hospitalizations or any other care regarding asthma control. However, she reports to have difficulties with blood pressure control. Since her arrival to the hospital the patient was having elevated blood pressure with systolics [id number]. In emergency department the patient was started on Cleviprex drip for blood pressure control. This morning the blood pressures under better control. The patient will be started back on the oral antihypertensive medication. No chest pain. No angina. No swelling in lower extremities. The patient is diabetic. The patient has diabetic retinopathy and nephropathy. The patient is currently on steroids and the patient has developed some mild steroid-induced hyperglycemia. Troponins are minimally elevated and the proBNP level is 3500. Echocardiogram was also ordered. The echocardiogram showed an ejection fraction of 65%. No other significant abnormalities. There is evidence of severe concentric left ventricular hypertrophy consistent hypertensive heart disease. CT of the chest was done and the burst department and showed no acute abnormalities. There is some interstitial congestion related to fluids. On 11/16/2017. Seeing this patient for a follow-up. In terms of her asthma she is less short of breath compared to yesterday. She is on DuoNeb neb last treatment [id number] and Symbicort. The patient is also on IV Solu- Medrol. She has a little some steroid-induced hyperglycemia. She is on 7030 insulin 35 units in the morning and 25 units in the evening along with a sliding scale coverage. Blood sugars ranging to 250 and 350. In addition, the patient is still on 1 mg of Cleviprex infusion. Blood pressure is under better control and we are gradually to using the oral antihypertensive medication and the patient is currently on a combination of clonidine 0.1 mg 3 times a day, losartan 50 mg by mouth daily metoprolol 100 mg by mouth twice a day and hydrochlorothiazide 25 mg by mouth daily. Her creatinine is up to 2.4. Rest of the electrolytes show a component of non-anion gap metabolic acidosis. Hemoglobin stable at 9.2. She has no chest pain. Some limited cough and congestion still present. No other new complaints otherwise for now. On 11/17/2017, the patient is off the Cleviprex drip. The patient is doing well. No complaints other than some residual chest congestion and the patient is unable to bring up any mucus. No sugars under better control. The patient on a combination of clonidine 0.2 mg 3 times a day, Coreg, hydrochlorothiazide and Norvasc. She is on prednisone burst taper. She remains in the intensive care unit. No chest pain. No swelling lower extremities. Renal function is stable with a creatinine of 2.3. The patient is seen again today 11/18/2017 in follow-up on the regular medical floor. She is currently sitting up in a chair at the bedside. She is awake and alert in no acute distress. She still has a loose nonproductive cough some shortness of breath on exertion. Difficulty clearing secretions. She remains on oral antibiotics a prednisone burst and taper and bronchodilators. Mucinex has been added. She is maintaining good O2 saturations in the upper 90s on room air. She's been afebrile. Blood cultures reveal no growth. Count 6.0. Hemoglobin 11.1. Creatinine 2.31. Patient seen again today 11/20/2017 in follow-up on the regular medical floor. She is currently sitting up in bed. She is awake and alert in no acute distress. She is nearly back to her baseline. No worsening shortness of breath , cough or congestion. Maintaining good O2 saturations in the mid to upper 90s on room air. Afebrile. No chills or night sweats. She is hoping to go home today. Objective - Vital Signs Vital signs: Vital Signs Temp 97.9 F 11/20/17 06:37 Pulse 72 11/20/17 07:40 Resp 18 11/20/17 06:37 BP 163/81 11/20/17 06:37 Pulse Ox 96 11/20/17 06:37 Intake & Output 11/19/17 11/20/17 11/20/17 18:59 06:59 18:59 Intake Total 0 1100 Balance 0 1100 Intake: IV 0 NS 0 Oral 1100 Other: # Voids 2 # Bowel Movements 0 - Exam Gen. Orbital he obese. Appearance the patient is calm comfortable likely distress. Resting comfortably in bed. No signs of any respiratory distress or use of accessory muscles of breathing. Head exam was generally normal. There was no scleral icterus or corneal arcus. Mucous membranes were moist. Neck was supple and without jugular venous distension, thyromegaly, or carotid bruits. Carotids were easily palpable bilaterally. There was no adenopathy. Patient has significant crowding of the posterior oropharynx and the patient has a Mallampati class IV Lung sounds are have faint end expiratory wheeze. Cardiac exam revealed the PMI to be normally situated and sized. The rhythm was regular and no extrasystoles were noted during several minutes of auscultation. The first and second heart sounds were normal and physiologic splitting of the second heart sound was noted. There were no murmurs, rubs, clicks, or gallops. Abdomen is obese soft nontender and organs cannot be accurately palpated Examination of the extremities revealed easily palpable radial, femoral and pedal pulses. There was no cyanosis, clubbing or edema. Neurologically awake and alert and is no focal neurological deficit Examination of the skin revealed no evidence of significant rashes, suspicious appearing nevi or other concerning lesions. - Labs CBC & Chem 7: 11/18/17 07:21 11/20/17 07:27 Labs: Abnormal Lab Results - Last 24 Hours (Table) 11/19/17 11/19/17 11/20/17 Range/Units 17:33 20:31 07:15 BUN (7-17) mg/dL Creatinine (0.52-1.04) mg/dL Glucose (74-99) mg/dL POC Glucose (mg/dL) 287 H 247 H 167 H (75-99) mg/dL 11/20/17 Range/Units 07:27 BUN 68 H (7-17) mg/dL Creatinine 2.22 H (0.52-1.04) mg/dL Glucose 156 H (74-99) mg/dL POC Glucose (mg/dL) (75-99) mg/dL Microbiology - Last 24 Hours (Table) 11/14/17 22:16 Blood Culture - Preliminary Blood No Growth after 120 hours Assessment and Plan Assessment: Assessment 1 acute asthma exacerbation with secondary shortness of breath. Acute asthma exacerbation is improving slowly. The patient continues to have some residual cough and congestion and she is unable to bring up any sputum. We'll add antibiotics for symptoms of tracheal bronchitis. 2 hypertensive urgency currently off Cleviprex drip for blood pressure control. The BP is under better control for now. The patient is asymptomatic. 3 hypertensive heart disease with concentric left ventricular hypertrophy 4 diabetes mellitus, with a component of steroid-induced hyperglycemia 5 diabetic retinopathy and nephropathy 6 chronic renal failure, stage III chronic kidney disease 7 morbidly obesity Plan: The patient was seen and evaluated by Dr. Mathews. She is improved from the pulmonary standpoint could be discharged home today. She remains on a prednisone taper. Oral antibiotics. Bronchodilators. She would benefit from a follow-up in our office in 1-2 weeks' time. She is however encouraged to call sooner if any recurrence of symptoms or other questions or concerns. I, the cosigning physician, performed a history & physical examination of the patient. Lungs sounds with few end expiratory wheeze. Maintaining good O2 saturations in the 90s on room air. I discussed the assessment and plan of care with my nurse practitioner, Preethi Magallon. I attest to the above note as dictated by her.
--- NOTE | 2017-11-20 21:33 | PN ---
PROGRESS NOTE The patient is seen for followup for acute kidney injury on top of chronic kidney disease and uncontrolled hypertension, hypertensive emergency. She is currently feeling well. Blood pressure has been about 140 mmHg systolic. This morning it was 163/81, heart rate is 72 per minute. She is afebrile. Examination of the heart S1, S2. Examination of lungs bilateral breath sounds are heard. Abdomen is soft, nontender, obese. Examination lower extremity shows no significant edema. LAB: Show serum creatinine 2.2, sodium 137, potassium 4.6. ASSESSMENT: 1. Acute kidney injury secondary to uncontrolled hypertension and fluctuation in blood pressure. His serum creatinine is slightly improved from yesterday. 2. Hypertensive/emergency. Continue current antihypertensive regimen. Patient will follow up as outpatient. We will likely add or switch to MEG inhibitor/angiotensin receptor blockers. 3. Chronic kidney disease stage 3 with previous creatinine at about 1.7-1.6 mg/dL at lowest in August of 2017. PLAN: Follow up as outpatient in about 1 week's time. MMODL / IJN: [id number] /
== END 2017-11-20 14:15 | disposition home health service (06) | DRG 202 ==
LOC: EC 15:58 → 6ICU 19:58 → 4MS4W 11-17 18:44
PROVIDERS: ADMIT Internal Medicine; ATTEND Internal Medicine
DX: J45.41 Moderate persistent asthma with (acute) exacerbation (principal); N17.0 Acute kidney failure with tubular necrosis; I16.1 Hypertensive emergency; E87.2 Acidosis; Z68.42 Body mass index [BMI] 45.0-49.9, adult; E11.22 Type 2 diabetes mellitus with diabetic chronic kidney disease; E11.319 Type 2 diabetes mellitus with unspecified diabetic retinopathy without macular edema; E11.42 Type 2 diabetes mellitus with diabetic polyneuropathy; E11.65 Type 2 diabetes mellitus with hyperglycemia; E55.9 Vitamin D deficiency, unspecified; E66.01 Morbid (severe) obesity due to excess calories; F41.9 Anxiety disorder, unspecified; I13.10 Hypertensive heart and chronic kidney disease without heart failure, with stage 1 through stage 4 chronic kidney disease, or unspecified chronic kidney disease; N18.3 Chronic kidney disease, stage 3 (moderate); K21.9 Gastro-esophageal reflux disease without esophagitis; T38.0X5A Adverse effect of glucocorticoids and synthetic analogues, initial encounter; K44.9 Diaphragmatic hernia without obstruction or gangrene; J20.8 Acute bronchitis due to other specified organisms; Z79.4 Long term (current) use of insulin; Z79.51 Long term (current) use of inhaled steroids; Z79.899 Other long term (current) drug therapy; Z88.5 Allergy status to narcotic agent; Z88.0 Allergy status to penicillin; Z88.2 Allergy status to sulfonamides; Z88.7 Allergy status to serum and vaccine; Z87.891 Personal history of nicotine dependence; Z87.11 Personal history of peptic ulcer disease; Z83.3 Family history of diabetes mellitus; Z82.49 Family history of ischemic heart disease and other diseases of the circulatory system; Z80.0 Family history of malignant neoplasm of digestive organs
CPT/HCPCS: 36415; 71045; 71275; 76770; 80048; 80053; 81001; 82088; 82306; 82803; 83036; 83735; 83880; 83970; 84100; 84244; 84443; 84484; 85025; 85379; 86334; 86335; 87040; 87502; 90732; 93005; 93306; 93970; 94640; 94644; 94760; 96365; 96375; 99291

== ENCOUNTER 2017-11-22 22:26 | Emergency (ER) | payer BC, MEDICARE, OTHER ==
[2017-11-22 23:24] LABS: Glucose,Whole Blood 380 mg/dL (75-99)
[2017-11-22] MEDS ORDERED: INSULIN REGULAR 100 UNIT/ML VIAL IV STA (23:53)
[2017-11-22] MEDS ORDERED: SODIUM CHLORIDE 0.9% 1,000 ML IV ONE (23:53)
[2017-11-23 00:13] LABS: Basophils % (A) 0 %; Eosinophils # (A) 0.1 k/uL (0-0.7); Eosinophils % (A) 0 %; HCT 34.8 % (34.0-46.0); HGB 11.5 gm/dL (11.4-16.0); Lymphocytes # (A) 0.5 k/uL (1.0-4.8); Lymphocytes % (A) 4 %; MCH 27.8 pg (25.0-35.0); MCHC 33.1 g/dL (31.0-37.0); MCV 84.1 fL (80.0-100.0); Monocytes # (A) 0.6 k/uL (0-1.0); Monocytes % (A) 4 %; Neutrophils # (A) 11.5 k/uL (1.3-7.7); Neutrophils % (A) 91 %; Platelet Count 278 k/uL (150-450); RBC 4.13 m/uL (3.80-5.40); RDW 14.6 % (11.5-15.5); WBC 12.6 k/uL (3.8-10.6)
[2017-11-23 00:21] LABS: Calcium 9.8 mg/dL (8.4-10.2); Potassium 5.2 mmol/L (3.5-5.1)
[2017-11-23 00:53] VITALS: RESP 16
[2017-11-23] MEDS ORDERED: SODIUM CHLORIDE 0.9% 1,000 ML IV ONE (01:31)
[2017-11-23 01:42] LABS: Glucose,Whole Blood 252 mg/dL (75-99)
--- NOTE | 2017-11-23 02:38 | ED ---
General Adult HPI - General Chief complaint: Recheck/Abnormal Lab/Rx Stated complaint: Hyperglycemia Time Seen by Provider: 11/22/17 23:44 Source: patient, family Mode of arrival: ambulatory Limitations: no limitations - History of Present Illness Initial comments: This patient is a 52-year-old woman who presents to be evaluated because her blood sugar has been running high all afternoon and evening. The patient relates that she has history of diabetes, had recently been in the hospital, and was discharged with a course of steroids. While her blood sugar has been running high she has been feeling thirsty, somewhat weak, fatigued and lightheaded. She states that her breathing has improved somewhat from discharge from the hospital. -: hour(s) Consistency: constant Improves with: none Worsens with: other (Steroids) Treatments Prior to Arrival: none - Related Data Home Medications Medication Instructions Recorded Confirmed Albuterol Sulfate [Proair Hfa] 2 puff INHALATION RT-Q4H PRN 02/25/17 11/22/17 Citalopram Hydrobromide [CeleXA] 40 mg PO DAILY 02/25/17 11/22/17 Gabapentin 600 mg PO TID 02/25/17 11/22/17 Insulin Aspart Protam & Aspart 25 unit SQ AC-SUPPER 02/25/17 11/22/17 [NovoLOG MIX 70-30 Flexpen] Insulin Aspart Protam & Aspart 35 unit SQ AC-BRKFST 02/25/17 11/22/17 [NovoLOG MIX 70-30 Flexpen] amLODIPine [Norvasc] 10 mg PO DAILY 02/25/17 11/22/17 Fluticasone Nasal [place] [Flonase 1 - 2 spray EA NOSTRIL DAILY PRN 08/15/1711/22 Nasal [place]] Albuterol Nebulized [Ventolin 2.5 mg INHALATION RT-QID PRN 11/14/17 11/22/17 Nebulized] Budesonide/Formoterol Fumarate 2 puff INHALATION RT-BID 11/14/17 11/22/17 [Symbicort 160-4.5 Mcg Inhaler] Cetirizine HCl [Zyrtec] 10 mg PO DAILY 11/14/17 11/22/17 Gemfibrozil [Lopid] 600 mg PO AC-BID 11/14/17 11/22/17 Ondansetron HCl [Zofran] 8 mg PO BID PRN 11/14/17 11/22/17 Pantoprazole [Protonix] 40 mg PO DAILY 11/14/17 11/22/17 Zolpidem [Ambien] 10 mg PO HS 11/14/17 11/22/17 Previous Rx's Medication Instructions Recorded Carvedilol [Coreg*] 25 mg PO BID-W/MEALS #60 tab 11/20/17 Chlorthalidone [Hygroton] 25 mg PO DAILY #30 tab 11/20/17 cloNIDine HCL [Catapres] 0.2 mg PO TID #90 tab 11/20/17 predniSONE 10 mg PO DAILY #30 tab 11/20/17 Allergies Allergy/AdvReac Type Severity Reaction Status Date / Time hydrocodone [From [place]] Allergy Hallucinati Verified 11/22/17 23:49 ons measles, mumps, and rubella Allergy Rash/Hives Verified 11/22/17 23:49 vaccine Penicillins Allergy Anaphylaxis Verified 11/22/17 23:49 Sulfa (Sulfonamide Allergy Anaphylaxis Verified 11/22/17 23:49 Antibiotics) Review of Systems ROS Statement: Those systems with pertinent positive or pertinent negative responses have been documented in the HPI. ROS Other: All systems not noted in ROS Statement are negative. Constitutional: Denies: fever, chills Respiratory: Denies: cough, dyspnea Cardiovascular: Denies: chest pain, edema, syncope Endocrine: Reports: fatigue, polydipsia, polyuria Gastrointestinal: Denies: abdominal pain, vomiting, diarrhea Genitourinary: Denies: dysuria, hematuria Neurological: Denies: headache Past Medical History Past Medical History: Asthma, Diabetes Mellitus, GERD/Reflux, Hypertension Additional Past Medical History / Comment(s): Obesity, diabetes mellitus, diabetic nephropathy and retinopathy, previous history of pancreatitis, gastric ulcer, peripheral neuropathy, hiatal hernia, hypertension, bronchial asthma History of Any Multi-Drug Resistant Organisms: None Reported Past Surgical History: Section, Uterine Ablation Additional Past Surgical History / Comment(s): left eye artificial lens, x4 c- sections,egd Past Anesthesia/Blood Transfusion Reactions: Postoperative Nausea & Vomiting ( PONV) Past Psychological History: Anxiety Smoking Status: Never smoker Past Alcohol Use History: None Reported Past Drug Use History: None Reported - Past Family History Father Family Medical History: Cancer, Diabetes Mellitus, Hypertension Additional Family Medical History / Comment(s): colon cancer Mother Family Medical History: Hypertension Additional Family Medical History / Comment(s): irreg heart beat, boarderline dm General Exam Limitations: no limitations General appearance: alert, in no apparent distress, obese Head exam: Present: atraumatic, normocephalic Eye exam: Present: normal appearance ENT exam: Present: mucous membranes dry Neck exam: Present: normal inspection Respiratory exam: Present: wheezes. Absent: respiratory distress, rales, rhonchi, stridor Cardiovascular Exam: Present: regular rate, normal rhythm, normal heart sounds. Absent: systolic murmur, diastolic murmur, rubs, gallop GI/Abdominal exam: Present: soft. Absent: distended, tenderness, guarding, rebound Extremities exam: Present: normal inspection, normal capillary refill. Absent: pedal edema, calf tenderness Back exam: Present: normal inspection. Absent: CVA tenderness (R), CVA tenderness (L) Neurological exam: Present: alert Skin exam: Present: warm, dry, intact, normal color. Absent: rash Course Vital Signs 11/22/17 11/22/17 11/23/17 23:11 23:30 00:51 Temperature 98.6 F 97.1 F L 97 F L Pulse Rate 64 67 62 Respiratory 20 18 16 Rate Blood Pressure 139/60 152/77 186/97 O2 Sat by Pulse 98 96 96 Oximetry 11/23/17 11/23/17 01:36 03:22 Temperature 97 F L 97.2 F L Pulse Rate 62 61 Respiratory 16 16 Rate Blood Pressure 155/87 153/81 O2 Sat by Pulse 98 99 Oximetry Medical Decision Making - Medical Decision Making Patient is a 52-year-old woman with history of diabetes, she is completing a course of steroids for what sounds like COPD exacerbation, and her blood sugar has been running high. The blood sugar has improved here with fluids and insulin. Discussed with the patient slightly increasing her insulin dose as she is on the course of steroids, and then decreasing back to her usual. The patient does monitor her sugar at home and this sounds feasible area she'll return here if there is any difficulty with the sugar control or if other symptoms develop., - Lab Data Result diagrams: 11/22/17 23:44 11/22/17 23:44 Lab Results 05/11/22/17 11/22/17 Range/Units 23:19 23:44 23:44 WBC (3.8-10.6) k/uL RBC (3.80-5.40) m/uL Hgb (11.4-16.0) gm/dL Hct (34.0-46.0) % MCV (80.0-100.0) fL MCH (25.0-35.0) pg MCHC (31.0-37.0) g/dL RDW (11.5-15.5) % Plt Count (150-450) k/uL Neutrophils % % Lymphocytes % % Monocytes % % Eosinophils % % Basophils % % Neutrophils # (1.3-7.7) k/uL Lymphocytes # (1.0-4.8) k/uL Monocytes # (0-1.0) k/uL Eosinophils # (0-0.7) k/uL Basophils # (0-0.2) k/uL Sodium 134 L (137-145) mmol/L Potassium 5.2 H (3.5-5.1) mmol/L Chloride 97 L (98-107) mmol/L Carbon Dioxide 19 L (22-30) mmol/L Anion Gap 18 mmol/L BUN 81 H* (7-17) mg/dL Creatinine 2.30 H (0.52-1.04) mg/dL Est GFR (CKD-EPI)AfAm 28 (>60 ml/min/1.73 sqM) Est GFR (CKD-EPI)NonAf 24 (>60 ml/min/1.73 sqM) Glucose 344 H (74-99) mg/dL POC Glucose (mg/dL) 380 H (75-99) mg/dL POC Glu Plodding Operator ID [place] Calcium 9.8 (8.4-10.2) mg/dL Acetone, Qual Negative (Negative) 11/22/17 11/23/17 11/23/17 Range/Units 23:44 01:25 02:48 WBC 12.6 H (3.8-10.6) k/uL RBC 4.13 (3.80-5.40) m/uL Hgb 11.5 (11.4-16.0) gm/dL Hct 34.8 (34.0-46.0) % MCV 84.1 (80.0-100.0) fL MCH 27.8 (25.0-35.0) pg MCHC 33.1 (31.0-37.0) g/dL RDW 14.6 (11.5-15.5) % Plt Count 278 (150-450) k/uL Neutrophils % 91 % Lymphocytes % 4 % Monocytes % 4 % Eosinophils % 0 % Basophils % 0 % Neutrophils # 11.5 H (1.3-7.7) k/uL Lymphocytes # 0.5 L (1.0-4.8) k/uL Monocytes # 0.6 (0-1.0) k/uL Eosinophils # 0.1 (0-0.7) k/uL Basophils # 0.0 (0-0.2) k/uL Sodium (137-145) mmol/L Potassium (3.5-5.1) mmol/L Chloride (98-107) mmol/L Carbon Dioxide (22-30) mmol/L Anion Gap mmol/L BUN (7-17) mg/dL Creatinine (0.52-1.04) mg/dL Est GFR (CKD-EPI)AfAm (>60 ml/min/1.73 sqM) Est GFR (CKD-EPI)NonAf (>60 ml/min/1.73 sqM) Glucose (74-99) mg/dL POC Glucose (mg/dL) 252 H 205 H (75-99) mg/dL POC Glu Plodding Operator ID Carol Mattson Calcium (8.4-10.2) mg/dL Acetone, Qual (Negative) Disposition Clinical Impression: Hyperglycemia due to type 2 diabetes mellitus Disposition: HOME SELF-CARE Condition: Fair Instructions: Diabetic Hyperglycemia (ED) Is patient prescribed a controlled substance at d/c from ED?: No Referrals: Susan Galarza MD [Primary Care Provider] - 1-2 days
[2017-11-23 03:15] LABS: Glucose,Whole Blood 205 mg/dL (75-99)
[2017-11-23 03:24] VITALS: BP 153/81; PULSE 61; TEMP 97.2
== END 2017-11-23 03:35 | disposition home or self-care (01) ==
LOC: EC 22:26
DX: E11.65 Type 2 diabetes mellitus with hyperglycemia (principal); R53.83 Other fatigue; R42 Dizziness and giddiness; J45.909 Unspecified asthma, uncomplicated; K21.9 Gastro-esophageal reflux disease without esophagitis; I10 Essential (primary) hypertension; E11.21 Type 2 diabetes mellitus with diabetic nephropathy; E11.319 Type 2 diabetes mellitus with unspecified diabetic retinopathy without macular edema; E11.42 Type 2 diabetes mellitus with diabetic polyneuropathy; F41.9 Anxiety disorder, unspecified; E66.9 Obesity, unspecified; Z68.41 Body mass index [BMI] 40.0-44.9, adult; Z79.51 Long term (current) use of inhaled steroids; Z79.4 Long term (current) use of insulin; Z79.899 Other long term (current) drug therapy; Z88.5 Allergy status to narcotic agent; Z88.0 Allergy status to penicillin; Z88.2 Allergy status to sulfonamides; Z88.7 Allergy status to serum and vaccine
CPT/HCPCS: 36415; 80048; 82009; 85025; 96360; 96361; 99284

== ENCOUNTER 2018-01-02 07:37 | Day surgery (SDC) | payer BC, MEDICARE, OTHER ==
[2017-12-29 14:32] VITALS: BMI 44.6
[~2018-01-02 07:37] MED LIST: LACTATED RINGERS 1,000 ML IV SCH
[2018-01-02 08:17] VITALS: TEMP 98
[2018-01-02] MEDS ORDERED: LIDOCAINE 1% 20 ML VIAL (10MG/ML) FOR IV START INTRADERMA ONE (08:34)
[2018-01-02] MEDS ORDERED: PROPOFOL 10 MG/ML 20 ML VIAL IV ONE (09:02)
[2018-01-02] MEDS ORDERED: LIDOCAINE 1% INJ 10MG/ML (20 ML MDV) ONE (09:02)
[2018-01-02 09:25] LABS: Glucose,Whole Blood 249 mg/dL (75-99)
[2018-01-02 09:57] VITALS: BP 136/83; PULSE 66; RESP 16
--- NOTE | 2018-01-02 10:20 | P.PCN ---
Date of Procedure: 01/02/18 Procedure(s) Performed: Procedure: Esophagogastroduodenoscopy and biopsy. Preoperative diagnosis: History of antral ulcers. Postoperative diagnoses: 1. Antral gastritis with no evidence of ulcers previously noted on 2 different occasions. 2. Biopsies obtained from the antrum to rule out H. pylori infection. Preparation and sedation: Was provided by anesthesia. Brief clinical history: The patient is a 52-year-old female who is scheduled for this evaluation because of history of gastric ulcers. I have performed an upper endoscopy in April 2017 and she was noted to have a 4-5 cm prepyloric antral ulcer. The patient was being evaluated at that time for possible etiology of pancreatitis. The patient was hospitalized in August of this year for epigastric pain associated with nausea and vomiting and an upper endoscopy at that time showed 2 large superficial ulcerations in the antrum of the stomach. The patient continues to be on PPI and has reported significant improvement in her symptoms. This evaluation is to assess for the healing of the ulcers and to guide therapy. PROCEDURE: With the patient on her left lateral decubitus position and after informed consent and adequate sedation, the Olympus-GIF 160 video upper endoscope was used and was advanced under direct vision through the cricopharyngeus down the esophagus. The esophagus appeared healthy. GE junction was around 40 cm from the incisors and there was no obvious hiatal hernia. The endoscope was then passed into the stomach which was insufflated with air and inspected in detail including the retroflex view in the cardia. Finally, the endoscope was passed through the pylorus into the duodenum. Pyloric channel, duodenal bulb, post bulbar area and descending duodenum appeared within normal limits. The antrum showed mottling erythema and edema and slight submucosal hemorrhage but there was no evidence of ulcers which were previously described. I obtained biopsies from the antrum before the endoscope was withdrawn. The patient tolerated the procedure well. Plan: The patient was reassured. Will await biopsy results. She will follow- up with you as planned and I will keep you updated on her progress.
== END 2018-01-02 10:23 | disposition home or self-care (01) ==
LOC: ORWHC2ENDO 07:37
DX: K29.70 Gastritis, unspecified, without bleeding (principal); Z87.11 Personal history of peptic ulcer disease; E11.42 Type 2 diabetes mellitus with diabetic polyneuropathy; K21.9 Gastro-esophageal reflux disease without esophagitis; I10 Essential (primary) hypertension; E78.5 Hyperlipidemia, unspecified; J45.909 Unspecified asthma, uncomplicated; Z79.4 Long term (current) use of insulin; Z79.51 Long term (current) use of inhaled steroids; Z79.899 Other long term (current) drug therapy; Z88.0 Allergy status to penicillin; Z88.2 Allergy status to sulfonamides; Z91.048 Other nonmedicinal substance allergy status
CPT/HCPCS: 81025; 43239; J2001; J2704; 88305

== ENCOUNTER 2018-04-15 10:37 | Emergency (ER) | payer BC, MEDICARE ==
[2018-04-15 10:49] VITALS: BP 160/96; PULSE 109; RESP 18; TEMP 98.1
--- NOTE | 2018-04-15 11:04 | ED ---
General Adult HPI - General Chief complaint: Skin/Abscess/Foreign Body Stated complaint: Sores on face Time Seen by Provider: 04/15/18 10:50 Source: patient, RN notes reviewed Mode of arrival: ambulatory Limitations: no limitations - History of Present Illness Initial comments: Patient 53-year-old female presented to the emergency room today with a chief complaint of sores to her face. She does note that this started a few days ago. She states that they have got worse more swollen. There is a small amount of drainage. Does admit that she believe she has a stye to the right eyes well. States she was on some steroids for her asthma attack which she finished yesterday. Has not been on any antibiotics. She denies any complaints or symptoms. Patient denies any recent fever, chills, shortness of breath, chest pain, back pain, abdominal pain, nausea or vomiting, numbness or tingling, headaches or visual changes, or any other complaints. - Related Data Home Medications Medication Instructions Recorded Confirmed Albuterol Sulfate [Proair Hfa] 2 puff INHALATION Q4HR PRN 02/25/17 01/02/18 Citalopram Hydrobromide [CeleXA] 40 mg PO DAILY 02/25/17 12/29/17 Gabapentin 600 mg PO TID 02/25/17 01/02/18 Insulin Aspart Protam & Aspart 25 unit SQ AC-SUPPER 02/25/17 01/02/18 [NovoLOG MIX 70-30 Flexpen] Insulin Aspart Protam & Aspart 35 unit SQ AC-BRKFST 02/25/17 01/02/18 [NovoLOG MIX 70-30 Flexpen] amLODIPine [Norvasc] 10 mg PO DAILY 02/25/17 12/29/17 Fluticasone Nasal [place] [Flonase 1 - 2 spray EA NOSTRIL HS PRN 08/15/17 01/02/18 Nasal [place]] Albuterol Nebulized [Ventolin 2.5 mg INHALATION QID PRN 11/14/17 01/02/18 Nebulized] Budesonide/Formoterol Fumarate 2 puff INHALATION QAM 11/14/17 01/02/18 [Symbicort 160-4.5 Mcg Inhaler] Cetirizine HCl [Zyrtec] 10 mg PO DAILY 11/14/17 12/29/17 Gemfibrozil [Lopid] 600 mg PO BID 11/14/17 01/02/18 Pantoprazole [Protonix] 40 mg PO DAILY 11/14/17 12/29/17 Zolpidem [Ambien] 10 mg PO HS PRN 11/14/17 12/29/17 Carvedilol [Coreg*] 25 mg PO BID 12/29/17 01/02/18 Ranitidine HCl [Zantac] 150 mg PO BID 12/29/17 01/02/18 Sodium Bicarbonate Tab 650 mg PO MO 12/29/17 01/02/18 Previous Rx's Medication Instructions Recorded Chlorthalidone [Hygroton] 25 mg PO DAILY #30 tab 11/20/17 cloNIDine HCL [Catapres] 0.2 mg PO TID #90 tab 11/20/17 Clindamycin HCl 300 mg PO Q6H #40 cap 04/15/18 Erythromycin Ophth Oint [Romycin 1 applic RIGHT EYE QID 7 Days gm 04/15/18 Ophth Oint] Mupirocin 2% Oint [Bactroban Oint] 1 applic TOPICAL TID #1 gm 04/15/18 Allergies Allergy/AdvReac Type Severity Reaction Status Date / Time adhesive tape Allergy Itching/swe Verified 12/29/17 14:16 lling hydrocodone [From [place]] Allergy Hallucinati Verified 12/29/17 14:16 ons/vomitin g measles, mumps, and rubella Allergy Rash/Hives Verified 12/29/17 14:16 vaccine Penicillins Allergy Anaphylaxis Verified 12/29/17 14:16 Sulfa (Sulfonamide Allergy Anaphylaxis Verified 12/29/17 14:16 Antibiotics) Review of Systems ROS Statement: Those systems with pertinent positive or pertinent negative responses have been documented in the HPI. ROS Other: All systems not noted in ROS Statement are negative. 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 History of Any Multi-Drug Resistant Organisms: None Reported Past Surgical History: Section, Uterine Ablation Additional Past Surgical History / Comment(s): C/S x 4, cyst removed from forehead, EGD, left cataract with lens implant Past Anesthesia/Blood Transfusion Reactions: Motion Sickness, Postoperative Nausea & Vomiting (PONV) Past Psychological History: Anxiety Smoking Status: Never smoker Past Alcohol Use History: Rare Past Drug Use History: None Reported - Past Family History Father Family Medical History: Cancer Additional Family Medical History / Comment(s): cancerous polyp Mother Family Medical History: Hypertension Additional Family Medical History / Comment(s): irreg heart beat, boarderline dm General Exam - General Exam Comments Initial Comments: General: The patient is awake and alert, in no distress, and does not appear acutely ill. Eye: Pupils are equal, round and reactive to light. Extra-ocular movements are intact. No nystagmus. There is normal conjunctiva bilaterally. No signs of icterus. There is a stye on the right lower lid in the corner. Ears, nose, mouth and throat: There are moist mucous membranes and no oral lesions. Neck: The neck is supple, there is no tenderness or JVD. Cardiovascular: There is a regular rate and rhythm. No murmur, rub or gallop is appreciated. Respiratory: Lungs are clear to auscultation, respirations are non-labored, breath sounds are equal. No wheezes, stridor, rales, or rhonchi. Musculoskeletal: Normal ROM, no tenderness. Sensation intact. Strength 5/5. Pulses equal bilaterally 2+. Neurological: A&O x 3. CN II-XII intact, There are no obvious motor or sensory deficits. Coordination appears grossly intact. Speech is normal. Skin: Patient does have 3 lesions across one of the cheek and 2 on the chin. They measure approximately centimeter across. The red raised firm on palpation or fluctuant area. Psychiatric: Cooperative, appropriate mood & affect, normal judgment. Limitations: no limitations Course Vital Signs 04/15/18 10:45 Temperature 98.1 F Pulse Rate 109 H Respiratory 18 Rate Blood Pressure 160/96 O2 Sat by Pulse 98 Oximetry Medical Decision Making - Medical Decision Making Patient will be treated with erythromycin for stye. She'll be placed on antibiotics for staph infection to the face. He is advised follow-up the family doctor also instructional technology specialist will be given if symptoms are not improving. The stye. Advised return for any other concerns. Disposition Clinical Impression: Stye, Staph infection Disposition: HOME SELF-CARE Condition: Good Instructions: Abscess (ED) Additional Instructions: Please use medication as discussed. Please follow-up with ophthalmology/family doctor in the next 2 days of symptoms have not improved. Please return to emergency room if the symptoms increase or worsen or for any other concerns. Prescriptions: Clindamycin HCl 300 mg PO Q6H #40 cap Erythromycin Ophth Oint [Romycin Ophth Oint] 1 applic RIGHT EYE QID 7 Days gm Mupirocin 2% Oint [Bactroban Oint] 1 applic TOPICAL TID #1 gm Is patient prescribed a controlled substance at d/c from ED?: No Referrals: Susan Galarza MD [Primary Care Provider] - 1-2 days Time of Disposition: 11:04
== END 2018-04-15 11:13 | disposition home or self-care (01) ==
LOC: EC 10:37
DX: H00.022 Hordeolum internum right lower eyelid (principal); B95.8 Unspecified staphylococcus as the cause of diseases classified elsewhere; J45.909 Unspecified asthma, uncomplicated; E11.40 Type 2 diabetes mellitus with diabetic neuropathy, unspecified; E11.42 Type 2 diabetes mellitus with diabetic polyneuropathy; E11.319 Type 2 diabetes mellitus with unspecified diabetic retinopathy without macular edema; I10 Essential (primary) hypertension; K21.9 Gastro-esophageal reflux disease without esophagitis; E11.622 Type 2 diabetes mellitus with other skin ulcer; H54.62 Unqualified visual loss, left eye, normal vision right eye; E78.5 Hyperlipidemia, unspecified; F41.9 Anxiety disorder, unspecified; Z88.0 Allergy status to penicillin; Z88.2 Allergy status to sulfonamides; Z88.5 Allergy status to narcotic agent; Z88.7 Allergy status to serum and vaccine; Z91.048 Other nonmedicinal substance allergy status; Z79.4 Long term (current) use of insulin; Z79.899 Other long term (current) drug therapy; Z86.69 Personal history of other diseases of the nervous system and sense organs; Z96.1 Presence of intraocular lens
CPT/HCPCS: 99282

== ENCOUNTER 2018-04-19 16:33 | Inpatient (IN) | payer BC, MEDICARE ==
[2018-04-19] MEDS ORDERED: SODIUM CHLORIDE 0.9% 500 ML 500 ML IV STA (17:37)
[2018-04-19] MEDS ORDERED: VANCOMYCIN IV PER PHARMACY 1 EACH MISC MISCELLANE PRN (17:37)
[2018-04-19] MEDS ORDERED: SODIUM CHLORIDE 0.9% 1,000 ML IV STA ×3 (17:37→18:32)
[2018-04-19] MEDS ORDERED: cefTRIAXone 2,000 MG in SODIUM CHLORIDE 0.9% 100 ML IVPB STA (17:41)
[2018-04-19] MEDS ORDERED: VANCOMYCIN 2,000 MG in SODIUM CHLORIDE 0.9% 500 ML 500 ML IVPB ONE (18:00)
[2018-04-19 18:05] LABS: Basophils % (A) 0 %; Eosinophils % (A) 0 %; HCT 20.9 % (34.0-46.0); Lymphocytes # (A) 0.5 k/uL (1.0-4.8); Lymphocytes % (A) 3 %; MCH 29.4 pg (25.0-35.0); MCHC 33.3 g/dL (31.0-37.0); MCV 88.3 fL (80.0-100.0); Monocytes # (A) 0.7 k/uL (0-1.0); Monocytes % (A) 4 %; Neutrophils # (A) 14.9 k/uL (1.3-7.7); Neutrophils % (A) 92 %; Platelet Count 341 k/uL (150-450); RBC 2.36 m/uL (3.80-5.40); RDW 14.2 % (11.5-15.5); WBC 16.1 k/uL (3.8-10.6)
[2018-04-19 18:11] LABS: HGB 6.9 gm/dL (11.4-16.0)
--- NOTE | 2018-04-19 18:19 | ED ---
Recheck HPI - General Chief Complaint: Recheck/Abnormal Lab/Rx Stated Complaint: weakness Time Seen by Provider: 04/19/18 17:00 Source: patient, RN notes reviewed, old records reviewed Mode of arrival: wheelchair Limitations: no limitations - History of Present Illness Initial Comments: This is a 53-year-old female the ER for evaluation of facial pain and abscess, weakness elevated blood sugar not feeling well. Patient isn't diabetic with diabetes and blood sugar and is been out of control. She also admits to having COPD with significant shortness of breath and fevers and chills. Patient has been on steroids as of late for COPD MD Complaint: wound re-check (facial infection) -: days(s) (7) Initial Visit For: cellulitis, abscess (face, acne) Returns Today for: wound recheck Symptoms Since Prior Visit: worsening swelling, worsening redness, fever Associated Symptoms: fever, chills, shortness of breath, malaise - Related Data Home Medications Medication Instructions Recorded Confirmed Albuterol Sulfate [Proair Hfa] 2 puff INHALATION RT-Q4H PRN 02/25/17 04/19/18 Citalopram Hydrobromide [CeleXA] 40 mg PO DAILY 02/25/17 04/19/18 Gabapentin 600 mg PO TID 02/25/17 04/19/18 Insulin Aspart Protam & Aspart 25 unit SQ AC-SUPPER 02/25/17 04/19/18 [NovoLOG MIX 70-30 Flexpen] Insulin Aspart Protam & Aspart 35 unit SQ AC-BRKFST 02/25/17 04/19/18 [NovoLOG MIX 70-30 Flexpen] amLODIPine [Norvasc] 10 mg PO DAILY 02/25/17 04/19/18 Fluticasone Nasal [place] [Flonase 1 - 2 spray EA NOSTRIL HS PRN 08/15/17 04/19/18 Nasal [place]] Albuterol Nebulized [Ventolin 2.5 mg INHALATION RT-QID PRN 11/14/17 04/19/18 Nebulized] Budesonide/Formoterol Fumarate 2 puff INHALATION RT-DAILY 11/14/17 04/19/18 [Symbicort 160-4.5 Mcg Inhaler] Cetirizine HCl [Zyrtec] 10 mg PO DAILY 11/14/17 04/19/18 Gemfibrozil [Lopid] 600 mg PO BID 11/14/17 04/19/18 Pantoprazole [Protonix] 40 mg PO DAILY 11/14/17 04/19/18 Zolpidem [Ambien] 10 mg PO HS PRN 11/14/17 04/19/18 Carvedilol [Coreg*] 25 mg PO BID 12/29/17 04/19/18 Ranitidine HCl [Zantac] 150 mg PO BID 12/29/17 04/19/18 Sodium Bicarbonate Tab 650 mg PO MO 12/29/17 04/19/18 Ibuprofen [Motrin Ib] 200 mg PO TID PRN 04/19/18 04/19/18 Previous Rx's Medication Instructions Recorded Chlorthalidone [Hygroton] 25 mg PO DAILY #30 tab 11/20/17 cloNIDine HCL [Catapres] 0.2 mg PO TID #90 tab 11/20/17 Clindamycin HCl 300 mg PO Q6H #40 cap 04/15/18 Erythromycin Ophth Oint [Romycin 1 applic RIGHT EYE QID 7 Days gm 04/15/18 Ophth Oint] Mupirocin 2% Oint [Bactroban Oint] 1 applic TOPICAL TID #1 gm 04/15/18 Allergies Allergy/AdvReac Type Severity Reaction Status Date / Time adhesive tape Allergy Itching/swe Verified 04/19/18 17:34 lling hydrocodone [From [place]] Allergy Hallucinati Verified 04/19/18 17:34 ons/vomitin g measles, mumps, and rubella Allergy Rash/Hives Verified 04/19/18 17:34 vaccine Penicillins Allergy Anaphylaxis Verified 04/19/18 17:34 Sulfa (Sulfonamide Allergy Anaphylaxis Verified 04/19/18 17:34 Antibiotics) Review of Systems ROS Statement: Those systems with pertinent positive or pertinent negative responses have been documented in the HPI. ROS Other: All systems not noted in ROS Statement are negative. 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 History of Any Multi-Drug Resistant Organisms: None Reported Past Surgical History: Section, Uterine Ablation Additional Past Surgical History / Comment(s): C/S x 4, cyst removed from forehead, EGD, left cataract with lens implant Past Anesthesia/Blood Transfusion Reactions: Motion Sickness, Postoperative Nausea & Vomiting (PONV) Past Psychological History: Anxiety Smoking Status: Never smoker Past Alcohol Use History: Rare Past Drug Use History: None Reported - Past Family History Father Family Medical History: Cancer Additional Family Medical History / Comment(s): cancerous polyp Mother Family Medical History: Hypertension Additional Family Medical History / Comment(s): irreg heart beat, [place] dm General Exam - General Exam Comments Initial Comments: Patient has significant infection and abscess on face Limitations: no limitations General appearance: alert, anxious, in distress, obese Head exam: Present: atraumatic, normocephalic, normal inspection Eye exam: Present: normal appearance, PERRL, EOMI. Absent: scleral icterus, conjunctival injection, periorbital swelling ENT exam: Present: normal exam, mucous membranes moist Neck exam: Present: normal inspection. Absent: tenderness, meningismus, lymphadenopathy Respiratory exam: Present: respiratory distress, wheezes, accessory muscle use, decreased breath sounds, prolonged expiratory. Absent: rales, rhonchi, stridor Cardiovascular Exam: Present: normal rhythm, tachycardia, normal heart sounds. Absent: systolic murmur, diastolic murmur, rubs, gallop, clicks GI/Abdominal exam: Present: soft, normal bowel sounds. Absent: distended, tenderness, guarding, rebound, rigid Extremities exam: Present: normal inspection, full ROM, normal capillary refill. Absent: tenderness, pedal edema, joint swelling, calf tenderness Back exam: Present: normal inspection Neurological exam: Present: alert, oriented X3, CN II-XII intact Psychiatric exam: Present: normal affect, normal mood Skin exam: Present: warm, dry, intact, normal color. Absent: rash Course Vital Signs 04/19/18 04/19/18 04/19/18 16:50 18:18 19:10 Temperature 98.6 F 99.0 F Pulse Rate 14 L 100 107 H Respiratory 18 20 18 Rate Blood Pressure 128/70 175/78 194/84 O2 Sat by Pulse 98 100 97 Oximetry 04/19/18 04/19/18 19:17 19:34 Temperature Pulse Rate 88 Respiratory 30 H Rate Blood Pressure O2 Sat by Pulse Oximetry - Reevaluation(s) Reevaluation #1: 04/19/18 19:41 Medical records thoroughly reviewed Reevaluation #2: 04/19/18 19:41 Patient at this time does have some improvement in symptoms, improving shortness of breath and energy Medical Decision Making - Lab Data Result diagrams: 04/19/18 17:20 04/19/18 17:20 Lab Results 04/19/18 04/19/18 04/19/18 Range/Units 17:20 17:20 17:20 WBC 16.1 H (3.8-10.6) k/uL RBC 2.36 L (3.80-5.40) m/uL Hgb 6.9 L* (11.4-16.0) gm/dL Hct 20.9 L (34.0-46.0) % MCV 88.3 (80.0-100.0) fL MCH 29.4 (25.0-35.0) pg MCHC 33.3 (31.0-37.0) g/dL RDW 14.2 (11.5-15.5) % Plt Count 341 (150-450) k/uL Neutrophils % 92 % Lymphocytes % 3 % Monocytes % 4 % Eosinophils % 0 % Basophils % 0 % Neutrophils # 14.9 H (1.3-7.7) k/uL Lymphocytes # 0.5 L (1.0-4.8) k/uL Monocytes # 0.7 (0-1.0) k/uL Eosinophils # 0.0 (0-0.7) k/uL Basophils # 0.0 (0-0.2) k/uL Sodium 118 L* (137-145) mmol/L Potassium 5.0 (3.5-5.1) mmol/L Chloride 82 L (98-107) mmol/L Carbon Dioxide 17 L (22-30) mmol/L Anion Gap 19 mmol/L BUN 105 H* (7-17) mg/dL Creatinine 2.32 H (0.52-1.04) mg/dL Est GFR (CKD-EPI)AfAm 27 (>60 ml/min/1.73 sqM) Est GFR (CKD-EPI)NonAf 24 (>60 ml/min/1.73 sqM) Glucose 1129 H* (74-99) mg/dL Plasma Lactic Acid [place] (0.7-2.0) mmol/L Calcium 8.6 (8.4-10.2) mg/dL Phosphorus 5.0 H (2.5-4.5) mg/dL Magnesium 2.1 (1.6-2.3) mg/dL Total Bilirubin 0.3 (0.2-1.3) mg/dL AST 14 (14-36) U/L ALT 25 (9-52) U/L Alkaline Phosphatase 101 (38-126) U/L Total Creatine Kinase 32 (30-135) U/L CK-MB (CK-2) 5.0 H (0.0-2.4) ng/mL CK-MB (CK-2) Rel Index 15.6 Troponin I 0.100 H* (0.000-0.034) ng/mL Total Protein 5.5 L (6.3-8.2) g/dL Albumin 2.9 L (3.5-5.0) g/dL 04/19/18 Range/Units 17:20 WBC (3.8-10.6) k/uL RBC (3.80-5.40) m/uL Hgb (11.4-16.0) gm/dL Hct (34.0-46.0) % MCV (80.0-100.0) fL MCH (25.0-35.0) pg MCHC (31.0-37.0) g/dL RDW (11.5-15.5) % Plt Count (150-450) k/uL Neutrophils % % Lymphocytes % % Monocytes % % Eosinophils % % Basophils % % Neutrophils # (1.3-7.7) k/uL Lymphocytes # (1.0-4.8) k/uL Monocytes # (0-1.0) k/uL Eosinophils # (0-0.7) k/uL Basophils # (0-0.2) k/uL Sodium (137-145) mmol/L Potassium (3.5-5.1) mmol/L Chloride (98-107) mmol/L Carbon Dioxide (22-30) mmol/L Anion Gap mmol/L BUN (7-17) mg/dL Creatinine (0.52-1.04) mg/dL Est GFR (CKD-EPI)AfAm (>60 ml/min/1.73 sqM) Est GFR (CKD-EPI)NonAf (>60 ml/min/1.73 sqM) Glucose (74-99) mg/dL Plasma Lactic Acid [place] 4.4 H* (0.7-2.0) mmol/L Calcium (8.4-10.2) mg/dL Phosphorus (2.5-4.5) mg/dL Magnesium (1.6-2.3) mg/dL Total Bilirubin (0.2-1.3) mg/dL AST (14-36) U/L ALT (9-52) U/L Alkaline Phosphatase (38-126) U/L Total Creatine Kinase (30-135) U/L CK-MB (CK-2) (0.0-2.4) ng/mL CK-MB (CK-2) Rel Index Troponin I (0.000-0.034) ng/mL Total Protein (6.3-8.2) g/dL Albumin (3.5-5.0) g/dL - EKG Data -: EKG Interpreted by Me (EKG shows sinus tachycardia rate of 109, [place] 170, QRS 98, QTc 474) EKG shows normal: sinus rhythm Rate: normal Critical Care Time Critical Care Time: Yes Total Critical Care Time: 31 Disposition Clinical Impression: Hyponatremia, Anemia, Acute exacerbation of chronic obstructive pulmonary disease (COPD), Abscess of face, Acute renal failure, Diabetes mellitus type 2 in obese Disposition: ADMITTED IP TO THIS HOSP Condition: Serious Is patient prescribed a controlled substance at d/c from ED?: No Referrals: Susan Galarza MD [Primary Care Provider] - 1-2 days
[2018-04-19 18:20] LABS: Albumin 2.9 g/dL (3.5-5.0); Calcium 8.6 mg/dL (8.4-10.2); Magnesium 2.1 mg/dL (1.6-2.3); Total Bilirubin 0.3 mg/dL (0.2-1.3); Total Protein 5.5 g/dL (6.3-8.2)
[2018-04-19] MEDS ORDERED: IPRATROPIUM-ALBUTEROL 3 ML NEB INHALATION STA (18:30)
[2018-04-19] MEDS ORDERED: INSULIN REGULAR BOLUS (FROM DRIP BAG) IV ONE (18:32)
[2018-04-19 18:55] LABS: Troponin I 0.1 ng/mL (0.000-0.034)
--- NOTE | 2018-04-19 19:20 | CT ---
EXAMINATION TYPE: CT soft tissue neck wo con DATE OF EXAM: 04/19/2018 HISTORY: Infection, pain. COMPARISON: CT DLP: 968.64 mGycm. Automated Exposure Control for Dose Reduction was Utilized. TECHNIQUE: Multiple axial sections were obtained from the level of the orbits to the aortic valve wit h no contrast. FINDINGS: There is normal branching pattern of the great vessels on the aortic arch. Thyroid gland is symmetric . There are a few submandibular lymph nodes that measure up to 16 mm in length. Submandibular salivar y glands are symmetric. Parotid glands are symmetric. The trachea appears normal. There is large tong ue. The epiglottis is not enlarged. Soft palate is prominent. There is resultant narrowing of the pos terior oropharynx. The tonsils do not appear enlarged. Adenoids do not appear enlarged. I see no bony destructive process. There is normal aeration of the visualized paranasal sinuses. There is no evide nce of retropharyngeal mass. There are a few bilateral anterior triangle cervical lymph nodes that me asure up to 11 mm. IMPRESSION: Large tongue and soft palate with some narrowing of the airway. No discrete mass seen. No evidence of an abscess. Nonspecific submandibular lymph nodes.
[2018-04-19] MEDS ORDERED: NALOXONE 0.4 MG/ML 1 ML VIAL IV PRN ×2 (19:25→23:06)
[2018-04-19 19:27] LABS: Prothrombin Time 9.7 sec (9.0-12.0)
--- NOTE | 2018-04-19 19:30 | CT ---
EXAMINATION TYPE: CT facial bones wo con DATE OF EXAM: 04/19/2018 COMPARISON: None HISTORY: Infection, pain. CT DLP: 607.87 mGycm Automated exposure control for dose reduction was used. TECHNIQUE: CT scan of the sinuses is performed without contrast, axial images are obtained, coronal r eformatted images are also reviewed. FINDINGS: The orbital margins are intact. There is no evidence of a blowout fracture. There is fairly normal aeration of the paranasal sinuses. There is nasal turbinate atrophy. I see no bony destructiv e process. Temporomandibular joints appear normal. Maxilla is intact. Nasal bone is intact. There is no evidence of orbital mass. Zygomatic arches appear normal. IMPRESSION: Negative CT scan of the facial bones. No evidence of sinusitis.
[2018-04-19] MEDS: INSULIN REGULAR 100 UNIT in SODIUM CHLORIDE 0.9% 100 ML IV SCH (19:37)
[2018-04-19 19:40] LABS: Partial Thromboplastin Time 18.4 sec (22.0-30.0)
[2018-04-19] MEDS: MORPHINE SULFATE 4 MG/ML SYRINGE IV PRN ×2 (19:58→22:50)
[2018-04-19] MEDS: SODIUM CHLORIDE 0.9% 1,000 ML IV SCH (20:13)
[2018-04-19 20:30] LABS: Appearance,Urine Clear (Clear); Bacteria,Urine Occasional /hpf; Bilirubin,Urine Negative (Negative); Blood,Urine Negative (Negative); Color,Urine Colorless; Glucose,Urine (UA) 4+ (Negative); Ketones,Urine Negative (Negative); Leukocyte Esterase,Urine Negative (Negative); Mucus,Urine Rare /hpf; Nitrite,Urine Negative (Negative); Protein,Urine 1+ (Negative); Specific Gravity,Urine 1.017 (1.001-1.035); Squamous Epithelial Cell,Urine <1 /hpf (0-4); Urobilinogen,Urine <2.0 mg/dL (<2.0); WBC,Urine 4 /hpf (0-5)
[2018-04-19] MEDS ORDERED: hydrALAZINE HCL 20 MG/ML 1 ML VIAL IVP STA (21:02)
[2018-04-19 21:06] LABS: Phosphorus 3.4 mg/dL (2.5-4.5); Potassium 3.7 mmol/L (3.5-5.1)
[2018-04-19] MEDS: ACETAMINOPHEN TAB 500 MG TAB PO PRN (21:12)
[2018-04-19 21:25] LABS: Glucose,Whole Blood >600 mg/dL (75-99)
[2018-04-19] MEDS ORDERED: SODIUM CHLORIDE 0.9% 1,000 ML IV ONE (21:30)
[2018-04-19] MEDS: IPRATROPIUM-ALBUTEROL 3 ML NEB INHALATION SCH (22:08)
[2018-04-19 22:27] LABS: Glucose,Whole Blood >600 mg/dL (75-99)
[2018-04-19 22:54] LABS: Glucose 677 mg/dL (74-99)
[2018-04-19 23:32] LABS: Glucose,Whole Blood >600 mg/dL (75-99)
[2018-04-20] MEDS ORDERED: FLUTICASONE 50MCG/SPRAY NASAL 16GM EA NOSTRIL PRN (00:36)
[2018-04-20] MEDS ORDERED: TEMAZEPAM 15 MG CAP PO PRN (00:43)
[2018-04-20 00:46] LABS: Anion Gap 12 mmol/L; Blood Urea Nitrogen 91 mg/dL (7-17); Carbon Dioxide 18 mmol/L (22-30); Chloride 102 mmol/L (98-107); Glucose 346 mg/dL (74-99); Phosphorus 2.6 mg/dL (2.5-4.5); Potassium 3.6 mmol/L (3.5-5.1); Sodium 132 mmol/L (137-145)
[2018-04-20] MEDS: cloNIDine HCL 0.2 MG TAB PO SCH ×4 (01:24→21:32)
[2018-04-20] MEDS: MEROPENEM 2 GM in SODIUM CHLORIDE 0.9% 100 ML IVPB SCH ×2 (01:24→14:27)
[2018-04-20 01:30] LABS: Glucose,Whole Blood 503 mg/dL (75-99)
[2018-04-20] MEDS: INSULIN REGULAR 100 UNIT in SODIUM CHLORIDE 0.9% 100 ML IV SCH ×2 (01:39→16:52)
[2018-04-20] MEDS: SODIUM CHLORIDE 0.9% 1,000 ML IV SCH ×4 (01:41→15:01)
[2018-04-20 02:35] LABS: Glucose,Whole Blood 447 mg/dL (75-99)
[2018-04-20] MEDS: amLODIPine 10 MG TAB PO SCH ×2 (02:46→10:36)
[2018-04-20] MEDS: CARVEDILOL 12.5 MG TAB PO SCH ×3 (02:57→17:08)
[2018-04-20] MEDS: D5-0.45% NACL WITH KCL 20MEQ/L 1,000 ML IV SCH ×4 (02:59→15:50)
[2018-04-20 03:34] LABS: Glucose,Whole Blood 321 mg/dL (75-99)
[2018-04-20 04:12] LABS: Glucose,Whole Blood 290 mg/dL (75-99)
[2018-04-20 05:18] LABS: Glucose,Whole Blood 244 mg/dL (75-99)
[2018-04-20] MEDS: MORPHINE SULFATE 4 MG/ML SYRINGE IV PRN ×2 (05:32→11:26)
[2018-04-20 05:35] LABS: Basophils # (A) 0.1 k/uL (0-0.2); Basophils % (A) 1 %; Eosinophils # (A) 0.4 k/uL (0-0.7); Eosinophils % (A) 2 %; HCT 21.8 % (34.0-46.0); HGB 7.5 gm/dL (11.4-16.0); Lymphocytes # (A) 1.3 k/uL (1.0-4.8); Lymphocytes % (A) 7 %; MCH 29.8 pg (25.0-35.0); MCHC 34.4 g/dL (31.0-37.0); MCV 86.7 fL (80.0-100.0); Mean Platelet Volume 6.7; Monocytes % (A) 6 %; Neutrophils # (A) 14.7 k/uL (1.3-7.7); Neutrophils % (A) 83 %; Platelet Count 299 k/uL (150-450); RBC 2.52 m/uL (3.80-5.40); RDW 14.7 % (11.5-15.5); WBC 17.6 k/uL (3.8-10.6)
[2018-04-20 05:48] LABS: Albumin 2.9 g/dL (3.5-5.0); Calcium 8.4 mg/dL (8.4-10.2); Magnesium 2.2 mg/dL (1.6-2.3); Phosphorus 2.9 mg/dL (2.5-4.5); Potassium 3.7 mmol/L (3.5-5.1); Total Bilirubin 0.2 mg/dL (0.2-1.3); Total Protein 5.8 g/dL (6.3-8.2)
[2018-04-20 06:35] LABS: Glucose,Whole Blood 132 mg/dL (75-99)
[2018-04-20 07:01] LABS: Glucose,Whole Blood 106 mg/dL (75-99)
[2018-04-20 07:42] LABS: Glucose,Whole Blood 122 mg/dL (75-99)
--- NOTE | 2018-04-20 08:15 | HP ---
HISTORY AND PHYSICAL DATE OF SERVICE: 04/19/2018 CHIEF COMPLAINT: Weakness and hyperglycemia. HISTORY OF PRESENT ILLNESS: This 53-year-old woman with a past medical history of multiple medical problems including history of asthma, diabetes mellitus, GERD, hyperlipidemia, hypertension, history of migraine, being followed by Dr. Susan Galarza in the outpatient setting recently had a root canal treatment. Subsequently patient had shortness of breath. The patient was apparently given steroids. The patient also developed facial abscess and cellulitis. Subsequently, patient became tired and weak and patient came to [facility]. Blood sugars was 760 and nonketotic hyperosmolar suspected and the patient was admitted for further evaluation and treatment. There is no history of fever, rigors. No headache, loss consciousness, seizures at this time. PAST MEDICAL HISTORY: History of asthma, diabetes, GERD, hypertension, hyperlipidemia, history of migraine. MEDICATIONS: Medications prior to admission include home medications are: 1. Flonase 1 to 2 sprays q.h.s. p.r.n. 2. Symbicort 160/4.5 two puffs b.i.d. daily. 3. ProAir 2 puffs q.4 p.r.n. 4. Ventolin 2.5 q.i.d. p.r.n. 5. Ambien 10 mg q.h.s. p.r.n. 6. Sodium bicarb 650 p.o. 7. Novolin mix 70/30, 25 units a.c. supper and 35 units a.c. breakfast. 8. Motrin 200 mg t.i.d. p.r.n. 9. Clindamycin 300 mg q.6 p.r.n. 10.Catapres 0.2 t.i.d. 11.Norvasc 10 mg p.o. daily. 12.Zantac 150 mg p.o._. 13.Protonix 40 mg p.o. daily. 14.Mupirocin 2% ointment one application t.i.d. 15.Lopid 600 mg b.i.d. 16.Gabapentin 600 mg t.i.d. 17.Erythromycin ophthalmic ointment q.i.d. 18.Celexa 40 mg p.o. daily. 19.Hygroton 25 mg p.o. daily. 20.Zyrtec 10 mg p.o. daily. 21.Coreg 25 mg p.o. b.i.d. ALLERGIES: ADHESIVE TAPES, NORCO, MMR VACCINE, PENICILLIN, SULFA. FAMILY HISTORY: History of cancer and cancerous polyps. SOCIAL HISTORY: No history of smoking. Occasional alcohol intake. REVIEW OF SYSTEMS: ENT: As mentioned earlier. CARDIOVASCULAR SYSTEM: No angina or palpitations. RESPIRATORY SYSTEM: As mentioned earlier. GI: No nausea, vomiting. : No dysuria. NERVOUS SYSTEM: As mentioned earlier. ALLERGY/IMMUNOLOGY: No asthma or hayfever. MUSCULOSKELETAL: As mentioned earlier. HEMATOLOGY/ONCOLOGY: No history of anemia. ENDOCRINE: Diabetes. CONSTITUTIONAL: As mentioned earlier. DERMATOLOGY: Negative. RHEUMATOLOGY: Negative. PSYCHIATRY: As mentioned earlier. PHYSICAL EXAMINATION: On exam, patient is alert and oriented x3. Pulse is 112, blood pressure 191/75, respiration 20, temperature 100.9, pulse ox 97% on room air. HEENT: Conjunctivae are normal. Oral mucosa moist. Neck is no jugular venous distention. No carotid bruit. No lymph node enlargement. CARDIOVASCULAR: S1 and S2 muffled. RESPIRATORY: Breath sounds diminished at the bases. A few scattered rhonchi. Expiratory wheezing and crackles. ABDOMEN: Soft, nontender. No mass palpable. LEGS: No edema, no swelling. NERVOUS SYSTEM: Higher functions as mentioned. Moves all 4 limbs. No focal motor or sensory deficits. LYMPHATICS: No lymphadenopathy of the neck, axillae or groin. SKIN: Facial skin multiple cellulitis present. LABS: WBC 16.1, hemoglobin 6.9. Sodium 126, creatinine is 2.8, glucose 677. ASSESSMENT: 1. Hyperosmolar diabetic state, rule out diabetic ketoacidosis. 2. Facial cellulitis with sepsis. 3. Anemia, symptomatic. 4. Hyponatremia. 5. Increased WBC. 6. Increased creatinine with possible acute kidney failure, possibly prerenal. 7. Troponin 0.100, rule out acute non ST-segment myocardial infarction infarction. 8. History of recent root canal treatment. 9. History of asthma. 10.History of gastroesophageal reflux disease. 11.Hypertension. 12.Hyperlipidemia. 13.History of renal disease. 14.History of migraine. 15.History of diabetic nephropathy and retinopathy. 16.History of pancreatitis. 17.History of ulcers. 18.Peripheral neuropathy. 19.History of bronchitis. 20.History of uterine ablation. 21.History of anxiety. 22.Obesity with body mass of 43.9. 23.FULL CODE. RECOMMENDATIONS AND DISCUSSION: This 53-year-old woman who presented with multiple complex medical issues, we will monitor the patient closely. Continue the current medications. Continue symptomatic treatment. Will initiate broad-spectrum IV antibiotics. Follow the cultures. Admit in ICU. Consult Dr. Mathews and Infectious Disease. Otherwise, DVT prophylaxis. Cardiology will also be consulted because of the elevated. Prognosis guarded because of multiple complex medical issues. Further recommendations to follow. A copy of dictation forwarded to Dr. Susan Galarza who is the primary physician. Monitor blood sugars closely. Serum acetone is ordered. MMODL / IJN: [id number] / MTDD
[2018-04-20 08:18] LABS: Glucose,Whole Blood 131 mg/dL (75-99)
--- NOTE | 2018-04-20 08:49 | XR ---
EXAMINATION TYPE: XR chest 1V DATE OF EXAM: 04/20/2018 COMPARISON: 11/14/2017 HISTORY: Pain TECHNIQUE: Single frontal view of the chest is obtained. FINDINGS: There is no focal air space opacity, pleural effusion, or pneumothorax seen. The cardiac silhouette size is within normal limits. The osseous structures are intact. Heart is a slightly pro minent. No overt failure. IMPRESSION: 1. Borderline cardiomegaly
[2018-04-20] MEDS ORDERED: ENOXAPARIN 40 MG/0.4 ML SYRINGE SQ SCH (09:00)
[2018-04-20] MEDS ORDERED: PANTOPRAZOLE 40 MG/10 ML VIAL IV SCH (09:00)
[2018-04-20 09:19] LABS: Glucose,Whole Blood 156 mg/dL (75-99)
[2018-04-20 10:29] LABS: Glucose,Whole Blood 140 mg/dL (75-99)
[2018-04-20] MEDS: LORATADINE 10 MG TAB PO SCH (10:36)
[2018-04-20] MEDS: N PO SCH (10:45)
[2018-04-20] MEDS: ERYTHROMYCIN 5 MG/GM OPHTH OINT 3.5 GM TUBE RIGHT EYE SCH ×4 (10:48→21:32)
[2018-04-20] MEDS: GABAPENTIN 300 MG CAP PO SCH ×3 (10:48→21:32)
[2018-04-20 11:01] LABS: Glucose,Whole Blood 131 mg/dL (75-99)
--- NOTE | 2018-04-20 11:11 | P.CNPUL ---
History of Present Illness Consult date: 04/20/18 Requesting physician: Bayron Iglesias Reason for consult: other (Critical Care management) Chief complaint: Mouth, tooth and face pain History of present illness: This is a very pleasant 53-year-old female patient who follows with Dr. Galarza as her primary care physician. She has a history of morbid obesity, diabetes mellitus, diabetic nephropathy and retinopathy, pancreatitis, anxiety, gastroesophageal reflux, hypertension. She also has a history of mild persistent chronic bronchial asthma and follows with Dr. Blanc in our office for the same. She is maintained on Symbicort and pro-air. She had recently been treated for an exacerbation with steroids. She also recently had issues with a infected tooth in the left upper jaw. She was seen by her cousin who is a dentist near [facility]. Dr. Arthur Minaya who had pretreated her with antibiotics and then saw her on 04/12/2018. He is planning for further procedures possibly a crown. Two days after that she developed a pimple-like abscess on her left lateral chin area which worsened into 3 other facial lesions. She also presented here to the emergency room on 04/15/2018 with complaints of the same. Her face was more swollen. There was drainage from the lesions. There is a stye in the right eye as well. She was initiated on clindamycin 300 mg every 6 hours, erythromycin ophthalmic ointment to the right eye and Bactroban ointment topical and discharged. She returned here yesterday for a wound recheck. The patient had worsening swelling, worsening redness and fever with chills and malaise. She also was found to have blood glucose levels as high as 1129. Acetone negative. Lactic acid initially 4.4, follow-up last evening 6.6. She was also hyponatremic at 118. Chloride 82. Bicarb 17. White count 16.1. Hemoglobin 6.9. Creatinine 2.32. Wound, urine, blood cultures are pending. She has received 1 unit of packed red blood cells and her current hemoglobin 7.5. She received 1 dose of ceftriaxone. She is currently on vancomycin and meropenem. ID has been consulted. She was initiated on an insulin drip currently on hold. Current blood glucose 131. She has received 4 L of fluid resuscitation and per [facility] protocol she is currently on D5 4 5 with 20 KCl at 150 MLS per hour. She is seen in consultation in the emergency department. She is currently awake and alert in no acute distress. She is having ongoing facial pain as well as left upper mandibular pain. No significant shortness of breath at this time. Maintaining good O2 saturations in the 90s on room air. Chest x-ray shows borderline cardiomegaly but no acute cardiopulmonary process. Computed tomography scan of the facial bones was negative. No evidence of sinusitis. Computed tomography scan of the soft tissue neck without contrast revealed a large tongue and soft palate with some narrowing of the airway. No discrete mass was seen. No evidence of an abscess. Nonspecific submandibular lymph nodes. Labs have improved. Sodium 132. Bicarb 18. Creatinine 1.81. Lactic 1.1. White count 17.6. Hemoglobin 7.5. Review of Systems Constitutional: Reports fatigue, Reports malaise, Reports poor appetite Eyes: right discharge, denies decreased vision Ears: deny: decreased hearing Ears, nose, mouth and throat: Reports dental pain, Reports mouth pain, Reports swelling in mouth, Reports swelling in throat Cardiovascular: Denies chest pain, Denies shortness of breath Respiratory: Denies cough Gastrointestinal: Denies abdominal pain, Denies diarrhea, Denies nausea, Denies vomiting Genitourinary: Denies dysuria, Denies hematuria Musculoskeletal: Denies myalgias Integumentary: Reports boils, Reports lesions, Reports wounds Neurological: Denies numbness, Denies weakness Psychiatric: Reports anxiety Endocrine: Reports fatigue, Reports high blood sugars, Reports polydipsia Hematologic/Lymphatic: Reports as per HPI Allergic/Immunologic: Reports as per HPI 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 Smoking Status: Never smoker Past Alcohol Use History: Rare Past Drug Use History: None Reported - Past Family History Father Family Medical History: Cancer Additional Family Medical History / Comment(s): cancerous polyp Mother Family Medical History: Hypertension Additional Family Medical History / Comment(s): irreg heart beat, boarderline dm Medications and Allergies Home Medications Medication Instructions Recorded Confirmed Type Albuterol Sulfate [Proair Hfa] 2 puff INHALATION RT-Q4H PRN 02/25/17 04/19/18 History Citalopram Hydrobromide [CeleXA] 40 mg PO DAILY 02/25/17 04/19/18 History Gabapentin 600 mg PO TID 02/25/17 04/19/18 History Insulin Aspart Protam & Aspart 25 unit SQ AC-SUPPER 02/25/17 04/19/18 History [NovoLOG MIX 70-30 Flexpen] Insulin Aspart Protam & Aspart 35 unit SQ AC-BRKFST 02/25/17 04/19/18 History [NovoLOG MIX 70-30 Flexpen] amLODIPine [Norvasc] 10 mg PO DAILY 02/25/17 04/19/18 History Fluticasone Nasal [place] [Flonase 1 - 2 spray EA NOSTRIL HS PRN 08/15/17 History Nasal [place]] Albuterol Nebulized [Ventolin 2.5 mg INHALATION RT-QID PRN 11/14/17 04/19/18 History Nebulized] Budesonide/Formoterol Fumarate 2 puff INHALATION RT-DAILY 11/14/17 04/19/18 History [Symbicort 160-4.5 Mcg Inhaler] Cetirizine HCl [Zyrtec] 10 mg PO DAILY 11/14/17 04/19/18 History Gemfibrozil [Lopid] 600 mg PO BID 11/14/17 04/19/18 History Pantoprazole [Protonix] 40 mg PO DAILY 11/14/17 04/19/18 History Zolpidem [Ambien] 10 mg PO HS PRN 11/14/17 04/19/18 History Chlorthalidone [Hygroton] 25 mg PO DAILY #30 tab 11/20/17 04/19/18 Rx cloNIDine HCL [Catapres] 0.2 mg PO TID #90 tab 11/20/17 04/19/18 Rx Carvedilol [Coreg*] 25 mg PO BID 12/29/17 04/19/18 History Ranitidine HCl [Zantac] 150 mg PO BID 12/29/17 04/19/18 History Sodium Bicarbonate Tab 650 mg PO MO 12/29/17 04/19/18 History Clindamycin HCl 300 mg PO Q6H #40 cap 04/15/18 04/19/18 Rx Erythromycin Ophth Oint [Romycin 1 applic RIGHT EYE QID 7 Days gm 04/15/1805/27 Rx Ophth Oint] Mupirocin 2% Oint [Bactroban Oint] 1 applic TOPICAL TID #1 gm 04/15/18 04/19/18 Rx Ibuprofen [Motrin Ib] 200 mg PO TID PRN 04/19/18 04/19/18 History Allergies Allergy/AdvReac Type Severity Reaction Status Date / Time adhesive tape Allergy Itching/swe Verified 04/19/18 17:34 lling hydrocodone [From [place]] Allergy Hallucinati Verified 04/19/18 17:34 ons/vomitin g measles, mumps, and rubella Allergy Rash/Hives Verified 04/19/18 17:34 vaccine Penicillins Allergy Anaphylaxis Verified 04/19/18 17:34 Sulfa (Sulfonamide Allergy Anaphylaxis Verified 04/19/18 17:34 Antibiotics) Physical Exam Vitals: Vital Signs Temp Pulse Pulse Pulse Pulse Resp BP 04/20/18 09:00 80 14 04/20/18 08:00 98.7 F 72 14 04/20/18 07:00 76 18 04/20/18 06:41 04/20/18 06:00 78 18 04/20/18 05:00 78 18 04/20/18 04:00 99.9 F H 90 16 04/20/18 03:00 98 16 04/20/18 02:30 102 H 17 04/20/18 02:00 100.2 F H 100 100 18 194/76 04/20/18 01:30 100.2 F H 104 H 17 184/73 04/20/18 01:00 100 F H 104 H 18 154/70 04/20/18 00:50 100 F H 106 H 19 176/74 04/20/18 00:00 100.2 F H 110 H 18 04/19/18 23:30 108 H 18 04/19/18 22:17 111 H 04/19/18 22:08 110 H 04/19/18 21:19 112 H 20 191/75 04/19/18 20:58 100.9 F H 115 H 24 224/84 04/19/18 19:48 92 04/19/18 19:34 88 04/19/18 19:17 30 H 04/19/18 19:10 99.0 F 107 H 20 194/84 04/19/18 18:18 100 20 175/78 04/19/18 16:50 98.6 F 14 L 18 128/70 BP Pulse Ox 04/20/18 09:00 128/60 94 L 04/20/18 08:00 132/59 04/20/18 07:00 105/52 99 04/20/18 06:41 92 L 04/20/18 06:00 124/60 95 04/20/18 05:00 152/67 95 04/20/18 04:00 145/63 95 04/20/18 03:00 154/66 96 04/20/18 02:30 159/69 97 04/20/18 02:00 194/76 98 04/20/18 01:30 97 04/20/18 01:00 97 04/20/18 00:50 97 04/20/18 00:00 182/77 97 04/19/18 23:30 180/79 97 04/19/18 22:17 04/19/18 22:08 04/19/18 21:19 97 04/19/18 20:58 100 04/19/18 19:48 04/19/18 19:34 04/19/18 19:17 04/19/18 19:10 97 04/19/18 18:18 100 04/19/18 16:50 98 Intake and Output 04/19/18 04/20/18 04/20/18 22:59 06:59 14:59 Intake Total 2174.845 462.959 Output Total 350 1150 160 Balance -350 1024.845 302.959 Intake: IV 1650 450 D5-0.45% NaCl with KCl 150 450 20Meq/l 1,000 ml @ 150 mls/hr IV .Q6H40M [facility] Rx# :[id number] Sodium Chloride 0.9% 1, 1500 000 ml @ 100 mls/hr IV . Q10H [facility] Rx#:[id number] Intake, IV Titration 114.845 12.959 Amount Insulin Regular 100 unit 114.845 12.959 In Sodium Chloride 0.9% 100 ml @ 0.1 UNITS/KG/HR 10.99 mls/hr IV .Q9H12M [facility] Rx#:[id number] Oral 100 Blood Product 310 Rc As-1 Unit 310 [id number] Output: Urine 350 1150 160 Other: Voiding Method Indwelling Catheter Indwelling Catheter Weight 108.862 kg - Constitutional General appearance: disheveled, morbidly obese - EENT Eyes: EOMI, PERRLA, poor dentition ENT: hearing grossly normal Ears: bilateral: normal - Neck Neck: normal ROM Carotids: bilateral: upstroke normal Thyroid: bilateral: normal size - Respiratory Respiratory: bilateral: CTA - Cardiovascular Rhythm: regular Heart sounds: normal: S1, S2 - Gastrointestinal General gastrointestinal: normal bowel sounds - Integumentary Integumentary: cellulitis - Neurologic Neurologic: CNII-XII intact - Musculoskeletal Musculoskeletal: generalized weakness - Psychiatric Psychiatric: A&O x's 3, appropriate affect, intact judgment & insight Results - Laboratory Findings CBC and BMP: 04/20/18 05:19 04/20/18 05:19 PT/INR, D-dimer PT 9.7 sec (9.0-12.0) 04/19/18 19:00 INR 1.0 (<1.2) 04/19/18 19:00 Abnormal lab findings: Abnormal Labs 04/19/18 04/19/18 04/19/18 17:20 17:20 17:20 WBC 16.1 H RBC 2.36 L Hgb 6.9 L* Hct 20.9 L Neutrophils # 14.9 H Lymphocytes # 0.5 L APTT Sodium 118 L* Chloride 82 L Carbon Dioxide 17 L BUN 105 H* Creatinine 2.32 H Glucose 1129 H* POC Glucose (mg/dL) Plasma Lactic Acid [place] Calcium Phosphorus 5.0 H CK-MB (CK-2) 5.0 H Troponin I 0.100 H* Total Protein 5.5 L Albumin 2.9 L Urine Protein Urine Glucose (UA) Urine Bacteria Urine Mucus Crossmatch 04/19/18 04/19/18 04/19/18 17:20 17:20 19:00 WBC RBC Hgb Hct Neutrophils # Lymphocytes # APTT 18.4 L Sodium Chloride Carbon Dioxide BUN Creatinine Glucose POC Glucose (mg/dL) Plasma Lactic Acid [place] 4.4 H* Calcium Phosphorus CK-MB (CK-2) Troponin I Total Protein Albumin Urine Protein Urine Glucose (UA) Urine Bacteria Urine Mucus Crossmatch See Detail 04/19/18 04/19/18 04/19/18 19:51 20:41 21:05 WBC RBC Hgb Hct Neutrophils # Lymphocytes # APTT Sodium 126 L Chloride 92 L Carbon Dioxide 17 L BUN 99 H Creatinine 2.28 H Glucose 760 H* POC Glucose (mg/dL) >600 H Plasma Lactic Acid [place] Calcium Phosphorus CK-MB (CK-2) Troponin I Total Protein Albumin Urine Protein 1+ H Urine Glucose (UA) 4+ H Urine Bacteria Occasional H Urine Mucus Rare H Crossmatch 04/19/18 04/19/18 04/19/18 21:59 22:00 22:10 WBC RBC Hgb Hct Neutrophils # Lymphocytes # APTT Sodium Chloride Carbon Dioxide BUN Creatinine Glucose 677 H* POC Glucose (mg/dL) >600 H Plasma Lactic Acid [place] 6.6 H* Calcium Phosphorus CK-MB (CK-2) Troponin I Total Protein Albumin Urine Protein Urine Glucose (UA) Urine Bacteria Urine Mucus Crossmatch 04/19/18 04/19/18 04/20/18 23:20 23:55 00:30 WBC RBC Hgb Hct Neutrophils # Lymphocytes # APTT Sodium 132 L Chloride Carbon Dioxide 18 L BUN 91 H Creatinine 1.81 H Glucose 550 H* 346 H POC Glucose (mg/dL) >600 H Plasma Lactic Acid [place] Calcium 8.0 L Phosphorus CK-MB (CK-2) Troponin I Total Protein Albumin Urine Protein Urine Glucose (UA) Urine Bacteria Urine Mucus Crossmatch 04/20/18 04/20/18 04/20/18 01:07 02:15 03:14 WBC RBC Hgb Hct Neutrophils # Lymphocytes # APTT Sodium Chloride Carbon Dioxide BUN Creatinine Glucose POC Glucose (mg/dL) 503 H 447 H 321 H Plasma Lactic Acid [place] Calcium Phosphorus CK-MB (CK-2) Troponin I Total Protein Albumin Urine Protein Urine Glucose (UA) Urine Bacteria Urine Mucus Crossmatch 04/20/18 04/20/18 04/20/18 03:59 05:15 05:19 WBC 17.6 H RBC 2.52 L Hgb 7.5 L Hct 21.8 L Neutrophils # 14.7 H Lymphocytes # APTT Sodium Chloride Carbon Dioxide BUN Creatinine Glucose POC Glucose (mg/dL) 290 H 244 H Plasma Lactic Acid [place] Calcium Phosphorus CK-MB (CK-2) Troponin I Total Protein Albumin Urine Protein Urine Glucose (UA) Urine Bacteria Urine Mucus Crossmatch 04/20/18 04/20/18 04/20/18 05:19 05:27 06:01 WBC RBC Hgb Hct Neutrophils # Lymphocytes # APTT Sodium 133 L Chloride Carbon Dioxide 16 L BUN 88 H Creatinine 1.83 H Glucose 184 H POC Glucose (mg/dL) 132 H Plasma Lactic Acid [place] Calcium Phosphorus CK-MB (CK-2) Troponin I 0.100 H* Total Protein 5.8 L Albumin 2.9 L Urine Protein Urine Glucose (UA) Urine Bacteria Urine Mucus Crossmatch 04/20/18 04/20/18 04/20/18 06:45 07:05 08:08 WBC RBC Hgb Hct Neutrophils # Lymphocytes # APTT Sodium Chloride Carbon Dioxide BUN Creatinine Glucose POC Glucose (mg/dL) 106 H 122 H 131 H Plasma Lactic Acid [place] Calcium Phosphorus CK-MB (CK-2) Troponin I Total Protein Albumin Urine Protein Urine Glucose (UA) Urine Bacteria Urine Mucus Crossmatch 04/20/18 09:09 WBC RBC Hgb Hct Neutrophils # Lymphocytes # APTT Sodium Chloride Carbon Dioxide BUN Creatinine Glucose POC Glucose (mg/dL) 156 H Plasma Lactic Acid [place] Calcium Phosphorus CK-MB (CK-2) Troponin I Total Protein Albumin Urine Protein Urine Glucose (UA) Urine Bacteria Urine Mucus Crossmatch - Diagnostic Findings Chest x-ray: image reviewed Assessment and Plan Assessment: Impression: #1 Hyperosmolar hyperglycemic state secondary to uncontrolled diabetes mellitus. #2 Sepsis secondary to cellulitis and abscess of the face. Treated with clindamycin in the outpatient setting #3 Left upper tooth dental infection. #4 Anemia of unclear etiology the patient has had dark colored diarrhea and been taking NSAIDs for her facial pain. #5 Acute on chronic renal failure. #6 Diabetes mellitus, type II. #7 Diabetic nephropathy. #8 Diabetic retinopathy. #9 History of pancreatitis. #10 Mild intermittent asthma, currently inactive and stable. #11 Gastroesophageal reflux disease. #12 Anxiety. Plan: The patient was seen and evaluated by Dr. Bisi. Chest x-ray and labs reviewed. We will monitor patient closely on the selective care unit. Continue to follow hemoglobins and blood glucose levels. Wound culture of the face is pending. Continue current antibiotics per ID. We will continue to follow make further recommendations based on her clinical status. I, the cosigning physician, performed a history & physical examination of the patient. Lungs sounds are clear. Diminished. Maintaining good O2 saturations in the 90s on room air. I discussed the assessment and plan of care with my nurse practitioner, Preethi Magallon. I attest to the above note as dictated by her. Time with Patient: Greater than 30
[2018-04-20] MEDS ORDERED: VANCOMYCIN 1,750 MG in SODIUM CHLORIDE 0.9% 500 ML 500 ML IVPB ONE (12:00)
[2018-04-20 12:38] LABS: Glucose,Whole Blood 124 mg/dL (75-99)
--- NOTE | 2018-04-20 12:49 | P.CONS ---
History of Present Illness - Reason for Consult Consult date: 04/20/18 GI bleeding Requesting physician: Bayron Iglesias - Chief Complaint Tooth face pain - History of Present Illness 53-year-old female patient Dr. 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 Admitted with an infected tooth new onset of rash on her face with worsening pain redness swelling. Requested for GI bleed. Reports darker colored bowel movements x 2 days 1-2 BMs daily black in appearance without significant abdominal pain. No emesis. Admission hemoglobin 6.9. BUN 105. Glucose 1129. Lactic acid 4.4. Troponin 0.1. LFTs within normal limits. Creatinine 2.3. Received 1 of 2 units of blood current hemoglobin 7.5. MCV 88. Platelets 341. INR 1.0. She's been taking Motrin 400 mg 3-4 times daily x 2 weeks for tooth pain. Previous hemoglobin in November 2017 was 11.5. Received IV hydration present lactic acid 1.1. EGD 01/02/2018 for evaluation of history of antral ulcers reported antral gastritis and no evidence of ulcers previously noted on 2 prior occasions. Home medications include Zantac 151 g twice a day and Protonix 40 mg daily. No aspirin or antiplatelet medications. No alcohol. Review of Systems Constitutional: Denies fever, chills, sweats, weight gain, or loss. HEENT: Negative for migraines, blurred vision or loss, earaches, drainage, tinnitus, oral mucosal lesions, dysphagia, or odynophagia. CARDIAC: Negative for chest pain, arrhythmias, or palpitation. RESPIRATORY: Negative for shortness of breath, hemoptysis, cough, or sputum production. GI: See HPI for pertinent findings. : Negative for hematuria, urgency, frequency, polyuria, or dysuria. GYNc: Denies possibility of . Negative vaginal discharge. MUSCULOSKELETAL: Negative for muscle aches, swelling, arthritis, and arthralgias. NEUROLOGIC: Negative for stroke or TIA. ENDOCRINE: Negative for thyroid problems. SKIN: Negative for rash or itching. 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 Smoking Status: Never smoker Past Alcohol Use History: Rare Past Drug Use History: None Reported - Past Family History Father Family Medical History: Cancer Additional Family Medical History / Comment(s): cancerous polyp Mother Family Medical History: Hypertension Additional Family Medical History / Comment(s): irreg heart beat, boarderline dm Medications and Allergies Home Medications Medication Instructions Recorded Confirmed Type Albuterol Sulfate [Proair Hfa] 2 puff INHALATION RT-Q4H PRN 02/25/17 04/19/18 History Citalopram Hydrobromide [CeleXA] 40 mg PO DAILY 02/25/17 04/19/18 History Gabapentin 600 mg PO TID 02/25/17 04/19/18 History Insulin Aspart Protam & Aspart 25 unit SQ AC-SUPPER 02/25/17 04/19/18 History [NovoLOG MIX 70-30 Flexpen] Insulin Aspart Protam & Aspart 35 unit SQ AC-BRKFST 02/25/17 04/19/18 History [NovoLOG MIX 70-30 Flexpen] amLODIPine [Norvasc] 10 mg PO DAILY 02/25/17 04/19/18 History Fluticasone Nasal [place] [Flonase 1 - 2 spray EA NOSTRIL HS PRN 08/15/17 History Nasal [place]] Albuterol Nebulized [Ventolin 2.5 mg INHALATION RT-QID PRN 11/14/17 04/19/18 History Nebulized] Budesonide/Formoterol Fumarate 2 puff INHALATION RT-DAILY 11/14/17 04/19/18 History [Symbicort 160-4.5 Mcg Inhaler] Cetirizine HCl [Zyrtec] 10 mg PO DAILY 11/14/17 04/19/18 History Gemfibrozil [Lopid] 600 mg PO BID 11/14/17 04/19/18 History Pantoprazole [Protonix] 40 mg PO DAILY 11/14/17 04/19/18 History Zolpidem [Ambien] 10 mg PO HS PRN 11/14/17 04/19/18 History Chlorthalidone [Hygroton] 25 mg PO DAILY #30 tab 11/20/17 04/19/18 Rx cloNIDine HCL [Catapres] 0.2 mg PO TID #90 tab 11/20/17 04/19/18 Rx Carvedilol [Coreg*] 25 mg PO BID 12/29/17 04/19/18 History Ranitidine HCl [Zantac] 150 mg PO BID 12/29/17 04/19/18 History Sodium Bicarbonate Tab 650 mg PO MO 12/29/17 04/19/18 History Clindamycin HCl 300 mg PO Q6H #40 cap 04/15/18 04/19/18 Rx Erythromycin Ophth Oint [Romycin 1 applic RIGHT EYE QID 7 Days gm 04/15/1805/27 Rx Ophth Oint] Mupirocin 2% Oint [Bactroban Oint] 1 applic TOPICAL TID #1 gm 04/15/18 04/19/18 Rx Ibuprofen [Motrin Ib] 200 mg PO TID PRN 04/19/18 04/19/18 History Allergies Allergy/AdvReac Type Severity Reaction Status Date / Time adhesive tape Allergy Itching/swe Verified 04/19/18 17:34 lling hydrocodone [From [place]] Allergy Hallucinati Verified 04/19/18 17:34 ons/vomitin g measles, mumps, and rubella Allergy Rash/Hives Verified 04/19/18 17:34 vaccine Penicillins Allergy Anaphylaxis Verified 04/19/18 17:34 Sulfa (Sulfonamide Allergy Anaphylaxis Verified 04/19/18 17:34 Antibiotics) Physical Exam Vitals: Vital Signs Temp Pulse Pulse Pulse Pulse Resp BP 04/20/18 11:00 78 14 04/20/18 10:00 79 14 04/20/18 09:00 80 14 04/20/18 08:00 98.7 F 72 14 04/20/18 07:00 76 18 04/20/18 06:41 04/20/18 06:00 78 18 04/20/18 05:00 78 18 04/20/18 04:00 99.9 F H 90 16 04/20/18 03:00 98 16 04/20/18 02:30 102 H 17 04/20/18 02:00 100.2 F H 100 100 18 194/76 04/20/18 01:30 100.2 F H 104 H 17 184/73 04/20/18 01:00 100 F H 104 H 18 154/70 04/20/18 00:50 100 F H 106 H 19 176/74 04/20/18 00:00 100.2 F H 110 H 18 04/19/18 23:30 108 H 18 04/19/18 22:17 111 H 04/19/18 22:08 110 H 04/19/18 21:19 112 H 20 191/75 04/19/18 20:58 100.9 F H 115 H 24 224/84 04/19/18 19:48 92 04/19/18 19:34 88 04/19/18 19:17 30 H 04/19/18 19:10 99.0 F 107 H 20 194/84 04/19/18 18:18 100 20 175/78 04/19/18 16:50 98.6 F 14 L 18 128/70 BP Pulse Ox 04/20/18 11:00 143/63 100 04/20/18 10:00 128/62 100 04/20/18 09:00 128/60 94 L 04/20/18 08:00 132/59 04/20/18 07:00 105/52 99 04/20/18 06:41 92 L 04/20/18 06:00 124/60 95 04/20/18 05:00 152/67 95 04/20/18 04:00 145/63 95 04/20/18 03:00 154/66 96 04/20/18 02:30 159/69 97 04/20/18 02:00 194/76 98 04/20/18 01:30 97 04/20/18 01:00 97 04/20/18 00:50 97 04/20/18 00:00 182/77 97 04/19/18 23:30 180/79 97 04/19/18 22:17 04/19/18 22:08 04/19/18 21:19 97 04/19/18 20:58 100 04/19/18 19:48 04/19/18 19:34 04/19/18 19:17 04/19/18 19:10 97 04/19/18 18:18 100 04/19/18 16:50 98 Intake and Output 04/19/18 04/20/18 04/20/18 22:59 06:59 14:59 Intake Total 2174.845 762.959 Output Total 350 1150 310 Balance -350 1024.845 452.959 Intake: IV 1650 750 D5-0.45% NaCl with KCl 150 750 20Meq/l 1,000 ml @ 150 mls/hr IV .Q6H40M [facility] Rx# :[id number] Sodium Chloride 0.9% 1, 1500 000 ml @ 100 mls/hr IV . Q10H [facility] Rx#:[id number] Intake, IV Titration 114.845 12.959 Amount Insulin Regular 100 unit 114.845 12.959 In Sodium Chloride 0.9% 100 ml @ 0.1 UNITS/KG/HR 10.99 mls/hr IV .Q9H12M [facility] Rx#:[id number] Oral 100 Blood Product 310 Rc As-1 Unit 310 [id number] Output: Urine 350 1150 310 Other: Voiding Method Indwelling Catheter Indwelling Catheter Weight 108.862 kg General appearance: The patient is alert, oriented, in no acute distress. HET: Head is normocephalic and atraumatic. Pupils are equal and reactive. Oropharynx is clear without lesions. Multiple scabbed areas to face yellow crust. Neck: Supple without lymphadenopathy. Trachea midline. Heart: S1 S2. Regular rate and rhythm. Lungs: No crackles or wheezes are heard. Abdomen: Soft, nontender, nondistended with bowel sounds. No peritoneal signs. No palpable organomegaly or masses. Extremities: Normal skin color and turgor. No cyanosis, rash, ulceration, clubbing, or edema. Radial and pedal pulses are 2/4 bilaterally. Neurological: No focal deficits. Strength and sensation are grossly intact. Results CBC & Chem 7: 04/20/18 05:19 04/20/18 05:19 Labs: Abnormal Lab Results - Last 24 Hours (Table) 04/19/18 04/19/18 04/19/18 Range/Units 17:20 17:20 17:20 WBC 16.1 H (3.8-10.6) k/uL RBC 2.36 L (3.80-5.40) m/uL Hgb 6.9 L* (11.4-16.0) gm/dL Hct 20.9 L (34.0-46.0) % Neutrophils # 14.9 H (1.3-7.7) k/uL Lymphocytes # 0.5 L (1.0-4.8) k/uL APTT (22.0-30.0) sec Sodium 118 L* (137-145) mmol/L Chloride 82 L (98-107) mmol/L Carbon Dioxide 17 L (22-30) mmol/L BUN 105 H* (7-17) mg/dL Creatinine 2.32 H (0.52-1.04) mg/dL Glucose 1129 H* (74-99) mg/dL POC Glucose (mg/dL) (75-99) mg/dL Plasma Lactic Acid Ochoa (0.7-2.0) mmol/L Calcium (8.4-10.2) mg/dL Phosphorus 5.0 H (2.5-4.5) mg/dL CK-MB (CK-2) 5.0 H (0.0-2.4) ng/mL Troponin I 0.100 H* (0.000-0.034) ng/mL Total Protein 5.5 L (6.3-8.2) g/dL Albumin 2.9 L (3.5-5.0) g/dL Urine Protein (Negative) Urine Glucose (UA) (Negative) Urine Bacteria (None) /hpf Urine Mucus (None) /hpf Crossmatch 04/19/18 04/19/18 04/19/18 Range/Units 17:20 17:20 19:00 WBC (3.8-10.6) k/uL RBC (3.80-5.40) m/uL Hgb (11.4-16.0) gm/dL Hct (34.0-46.0) % Neutrophils # (1.3-7.7) k/uL Lymphocytes # (1.0-4.8) k/uL APTT 18.4 L (22.0-30.0) sec Sodium (137-145) mmol/L Chloride (98-107) mmol/L Carbon Dioxide (22-30) mmol/L BUN (7-17) mg/dL Creatinine (0.52-1.04) mg/dL Glucose (74-99) mg/dL POC Glucose (mg/dL) (75-99) mg/dL Plasma Lactic Acid Ochoa 4.4 H* (0.7-2.0) mmol/L Calcium (8.4-10.2) mg/dL Phosphorus (2.5-4.5) mg/dL CK-MB (CK-2) (0.0-2.4) ng/mL Troponin I (0.000-0.034) ng/mL Total Protein (6.3-8.2) g/dL Albumin (3.5-5.0) g/dL Urine Protein (Negative) Urine Glucose (UA) (Negative) Urine Bacteria (None) /hpf Urine Mucus (None) /hpf Crossmatch See Detail 04/19/18 04/19/18 04/19/18 Range/Units 19:51 20:41 21:05 WBC (3.8-10.6) k/uL RBC (3.80-5.40) m/uL Hgb (11.4-16.0) gm/dL Hct (34.0-46.0) % Neutrophils # (1.3-7.7) k/uL Lymphocytes # (1.0-4.8) k/uL APTT (22.0-30.0) sec Sodium 126 L (137-145) mmol/L Chloride 92 L (98-107) mmol/L Carbon Dioxide 17 L (22-30) mmol/L BUN 99 H (7-17) mg/dL Creatinine 2.28 H (0.52-1.04) mg/dL Glucose 760 H* (74-99) mg/dL POC Glucose (mg/dL) >600 H (75-99) mg/dL Plasma Lactic Acid Ochoa (0.7-2.0) mmol/L Calcium (8.4-10.2) mg/dL Phosphorus (2.5-4.5) mg/dL CK-MB (CK-2) (0.0-2.4) ng/mL Troponin I (0.000-0.034) ng/mL Total Protein (6.3-8.2) g/dL Albumin (3.5-5.0) g/dL Urine Protein 1+ H (Negative) Urine Glucose (UA) 4+ H (Negative) Urine Bacteria Occasional H (None) /hpf Urine Mucus Rare H (None) /hpf Crossmatch 04/19/18 04/19/18 04/19/18 Range/Units 21:59 22:00 22:10 WBC (3.8-10.6) k/uL RBC (3.80-5.40) m/uL Hgb (11.4-16.0) gm/dL Hct (34.0-46.0) % Neutrophils # (1.3-7.7) k/uL Lymphocytes # (1.0-4.8) k/uL APTT (22.0-30.0) sec Sodium (137-145) mmol/L Chloride (98-107) mmol/L Carbon Dioxide (22-30) mmol/L BUN (7-17) mg/dL Creatinine (0.52-1.04) mg/dL Glucose 677 H* (74-99) mg/dL POC Glucose (mg/dL) >600 H (75-99) mg/dL Plasma Lactic Acid Ochoa 6.6 H* (0.7-2.0) mmol/L Calcium (8.4-10.2) mg/dL Phosphorus (2.5-4.5) mg/dL CK-MB (CK-2) (0.0-2.4) ng/mL Troponin I (0.000-0.034) ng/mL Total Protein (6.3-8.2) g/dL Albumin (3.5-5.0) g/dL Urine Protein (Negative) Urine Glucose (UA) (Negative) Urine Bacteria (None) /hpf Urine Mucus (None) /hpf Crossmatch 04/19/18 04/19/18 04/20/18 Range/Units 23:20 23:55 00:30 WBC (3.8-10.6) k/uL RBC (3.80-5.40) m/uL Hgb (11.4-16.0) gm/dL Hct (34.0-46.0) % Neutrophils # (1.3-7.7) k/uL Lymphocytes # (1.0-4.8) k/uL APTT (22.0-30.0) sec Sodium 132 L (137-145) mmol/L Chloride (98-107) mmol/L Carbon Dioxide 18 L (22-30) mmol/L BUN 91 H (7-17) mg/dL Creatinine 1.81 H (0.52-1.04) mg/dL Glucose 550 H* 346 H (74-99) mg/dL POC Glucose (mg/dL) >600 H (75-99) mg/dL Plasma Lactic Acid Ochoa (0.7-2.0) mmol/L Calcium 8.0 L (8.4-10.2) mg/dL Phosphorus (2.5-4.5) mg/dL CK-MB (CK-2) (0.0-2.4) ng/mL Troponin I (0.000-0.034) ng/mL Total Protein (6.3-8.2) g/dL Albumin (3.5-5.0) g/dL Urine Protein (Negative) Urine Glucose (UA) (Negative) Urine Bacteria (None) /hpf Urine Mucus (None) /hpf Crossmatch 04/20/18 04/20/18 04/20/18 Range/Units 01:07 02:15 03:14 WBC (3.8-10.6) k/uL RBC (3.80-5.40) m/uL Hgb (11.4-16.0) gm/dL Hct (34.0-46.0) % Neutrophils # (1.3-7.7) k/uL Lymphocytes # (1.0-4.8) k/uL APTT (22.0-30.0) sec Sodium (137-145) mmol/L Chloride (98-107) mmol/L Carbon Dioxide (22-30) mmol/L BUN (7-17) mg/dL Creatinine (0.52-1.04) mg/dL Glucose (74-99) mg/dL POC Glucose (mg/dL) 503 H 447 H 321 H (75-99) mg/dL Plasma Lactic Acid Ochoa (0.7-2.0) mmol/L Calcium (8.4-10.2) mg/dL Phosphorus (2.5-4.5) mg/dL CK-MB (CK-2) (0.0-2.4) ng/mL Troponin I (0.000-0.034) ng/mL Total Protein (6.3-8.2) g/dL Albumin (3.5-5.0) g/dL Urine Protein (Negative) Urine Glucose (UA) (Negative) Urine Bacteria (None) /hpf Urine Mucus (None) /hpf Crossmatch 04/20/18 04/20/18 04/20/18 Range/Units 03:59 05:15 05:19 WBC 17.6 H (3.8-10.6) k/uL RBC 2.52 L (3.80-5.40) m/uL Hgb 7.5 L (11.4-16.0) gm/dL Hct 21.8 L (34.0-46.0) % Neutrophils # 14.7 H (1.3-7.7) k/uL Lymphocytes # (1.0-4.8) k/uL APTT (22.0-30.0) sec Sodium (137-145) mmol/L Chloride (98-107) mmol/L Carbon Dioxide (22-30) mmol/L BUN (7-17) mg/dL Creatinine (0.52-1.04) mg/dL Glucose (74-99) mg/dL POC Glucose (mg/dL) 290 H 244 H (75-99) mg/dL Plasma Lactic Acid Ochoa (0.7-2.0) mmol/L Calcium (8.4-10.2) mg/dL Phosphorus (2.5-4.5) mg/dL CK-MB (CK-2) (0.0-2.4) ng/mL Troponin I (0.000-0.034) ng/mL Total Protein (6.3-8.2) g/dL Albumin (3.5-5.0) g/dL Urine Protein (Negative) Urine Glucose (UA) (Negative) Urine Bacteria (None) /hpf Urine Mucus (None) /hpf Crossmatch 04/20/18 04/20/18 04/20/18 Range/Units 05:19 05:27 06:01 WBC (3.8-10.6) k/uL RBC (3.80-5.40) m/uL Hgb (11.4-16.0) gm/dL Hct (34.0-46.0) % Neutrophils # (1.3-7.7) k/uL Lymphocytes # (1.0-4.8) k/uL APTT (22.0-30.0) sec Sodium 133 L (137-145) mmol/L Chloride (98-107) mmol/L Carbon Dioxide 16 L (22-30) mmol/L BUN 88 H (7-17) mg/dL Creatinine 1.83 H (0.52-1.04) mg/dL Glucose 184 H (74-99) mg/dL POC Glucose (mg/dL) 132 H (75-99) mg/dL Plasma Lactic Acid Ochoa (0.7-2.0) mmol/L Calcium (8.4-10.2) mg/dL Phosphorus (2.5-4.5) mg/dL CK-MB (CK-2) (0.0-2.4) ng/mL Troponin I 0.100 H* (0.000-0.034) ng/mL Total Protein 5.8 L (6.3-8.2) g/dL Albumin 2.9 L (3.5-5.0) g/dL Urine Protein (Negative) Urine Glucose (UA) (Negative) Urine Bacteria (None) /hpf Urine Mucus (None) /hpf Crossmatch 04/20/18 04/20/18 04/20/18 Range/Units 06:45 07:05 08:08 WBC (3.8-10.6) k/uL RBC (3.80-5.40) m/uL Hgb (11.4-16.0) gm/dL Hct (34.0-46.0) % Neutrophils # (1.3-7.7) k/uL Lymphocytes # (1.0-4.8) k/uL APTT (22.0-30.0) sec Sodium (137-145) mmol/L Chloride (98-107) mmol/L Carbon Dioxide (22-30) mmol/L BUN (7-17) mg/dL Creatinine (0.52-1.04) mg/dL Glucose (74-99) mg/dL POC Glucose (mg/dL) 106 H 122 H 131 H (75-99) mg/dL Plasma Lactic Acid Ochoa (0.7-2.0) mmol/L Calcium (8.4-10.2) mg/dL Phosphorus (2.5-4.5) mg/dL CK-MB (CK-2) (0.0-2.4) ng/mL Troponin I (0.000-0.034) ng/mL Total Protein (6.3-8.2) g/dL Albumin (3.5-5.0) g/dL Urine Protein (Negative) Urine Glucose (UA) (Negative) Urine Bacteria (None) /hpf Urine Mucus (None) /hpf Crossmatch 04/20/18 04/20/18 04/20/18 Range/Units 09:09 10:07 10:54 WBC (3.8-10.6) k/uL RBC (3.80-5.40) m/uL Hgb (11.4-16.0) gm/dL Hct (34.0-46.0) % Neutrophils # (1.3-7.7) k/uL Lymphocytes # (1.0-4.8) k/uL APTT (22.0-30.0) sec Sodium (137-145) mmol/L Chloride (98-107) mmol/L Carbon Dioxide (22-30) mmol/L BUN (7-17) mg/dL Creatinine (0.52-1.04) mg/dL Glucose (74-99) mg/dL POC Glucose (mg/dL) 156 H 140 H 131 H (75-99) mg/dL Plasma Lactic Acid Ochoa (0.7-2.0) mmol/L Calcium (8.4-10.2) mg/dL Phosphorus (2.5-4.5) mg/dL CK-MB (CK-2) (0.0-2.4) ng/mL Troponin I (0.000-0.034) ng/mL Total Protein (6.3-8.2) g/dL Albumin (3.5-5.0) g/dL Urine Protein (Negative) Urine Glucose (UA) (Negative) Urine Bacteria (None) /hpf Urine Mucus (None) /hpf Crossmatch Microbiology - Last 24 Hours (Table) 04/19/18 20:01 Gram Stain - Preliminary Face Wound Culture - Preliminary Assessment and Plan (1) Anemia Narrative/Plan: 53-year-old female with a history of prepyloric antral ulcers status post EGD December 2017 with no evidence of active ulcer disease presents with hyperosmolar hyperglycemic state secondary to uncontrolled diabetes mellitus as well as facial cellulitis dental abscess taking daily NSAIDS x 2 weeks with reports of melena darker colored bowel movements with evidence of biochemical acute blood loss anemia. Possible recurrent peptic ulcer disease. Current Visit: Yes Status: Acute Code(s): D64.9 - ANEMIA, UNSPECIFIED SNOMED Code(s): 120128537 Plan: 1. Transfuse 2nd unit of blood. Presently not actively bleeding. Normotensive without abdominal pain. Protonix 40 mg IV twice daily. CBC monitoring. EGD will be contingent on clinical course. No NSAIDS. Will follow closely with you. Thank you for this kind referral and the opportunity to participate in the care of your patient. This consultation was discussed with Dr. Nazario. The impression and plan of care have been directed as dictated.
[2018-04-20 13:20] LABS: Glucose,Whole Blood 170 mg/dL (75-99)
[2018-04-20] MEDS: HYDROmorphone 1 MG/ML 1 ML SYRINGE IVP PRN (14:15)
[2018-04-20 14:53] LABS: Glucose,Whole Blood 211 mg/dL (75-99)
--- NOTE | 2018-04-20 15:33 | PN ---
PROGRESS NOTE DATE OF SERVICE: 04/20/2018 This is a 53-year-old woman who was admitted with weakness and hypoglycemia, also had multiple other medical issues. The patient was noted features of diabetic ketosis, hypoxic and diabetic ketotic coma. Patient also had significant ulcers and features of sepsis also. The patient is admitted in ICU. Patient will be closely monitored. The blood sugar is much better controlled at this time. The patient also on broad-spectrum IV antibiotics also. The patient also had anemia. The hemoglobin is 7.5 after transfusion. GI also evaluated the patient and creatinine is 1.81. The patient was taking NSAIDs previously. Plasma lactic acid is improved. The troponin is 0.100. PAST MEDICAL HISTORY: Reviewed. REVIEW OF SYSTEMS: CARDIOVASCULAR SYSTEM: No angina. RESPIRATORY: As mentioned earlier. GI: As mentioned earlier. : No dysuria. NERVOUS SYSTEM: No numbness or weakness. CURRENT MEDICATIONS ARE REVIEWED, INCLUDE: 1. Tylenol 1000 mg p.o. q.8 p.r.n. 2. DuoNeb q.i.d. and p.r.n. 3. Norvasc. 4. Symbicort 1 b.i.d. 5. Coreg 25 mg b.i.d. 6. Celexa 40 mg daily. 7. Catapres 0.2 t.i.d. 8. Lovenox 30 mg subcu daily. 9. Neurontin. 10.Dilaudid. 11.Claritin. 12.Meropenem 2 g IV b.i.d. 13.Narcan. 14.Protonix. 15.Vancomycin. PHYSICAL EXAMINATION: Patient is alert and oriented x3. Pulse 82, blood pressure 132/60, respirations 12, temperature is 98.7, pulse ox 96% on room air. HEENT: Oral mucosa moist. Neck is no jugular venous distention. No lymph node enlargement. CARDIOVASCULAR: S1, S2, muffled. RESPIRATION: Breath sounds diminished at the bases, bilateral scattered rhonchi, no crackles. ABDOMEN: Soft, nontender. No mass palpable. LEGS: No edema, no swelling. NERVOUS SYSTEM: Higher functions as mentioned earlier, moves all 4 limbs, no focal deficits. LYMPHATICS: No lymph node enlargement in the neck or axillae. SKIN: Facial ulcerations. LABS: WBC is 17.6, hemoglobin is 7.5, sodium 132. ASSESSMENT: 1. Acute hyperosmolar diabetic state. No evidence of diabetic ketoacidosis, uncontrolled diabetes mellitus type 2 with hypoglycemia. 2. Facial cellulitis, sepsis. 3. Anemia, symptomatic, rule out gastrointestinal bleed. 4. Hyponatremia. 5. Increased WBC. 6. Creatinine with possible acute kidney failure, possibly prerenal acute tubular necrosis. 7. Troponin 0.100, rule out acute non ST-segment elevation myocardial infarction, she had recent root canal treatment. 8. History of asthma. 9. Gastroesophageal reflux disease. 10.Hypertension. 11.Hyperlipidemia. 12.History of renal disease. 13.History of migraines. 14.History of diabetic nephropathy and neuropathy. 15.History of pancreatitis. 16.History of ulcers. 17.Peripheral neuropathy. 18.History of bronchitis. 19.History atrial fibrillation. 20.History of anxiety. 21.Obesity with body mass index of 43.1. 22.FULL CODE. RECOMMENDATION: Recommend to continue current medication, continue to monitor. Symptomatic treatment. Continue broad spectrum IV antibiotics. Monitor blood sugars closely. Otherwise, can continue the rest of medications. Will follow the creatinine. Prognosis guarded because of multiple complex medical issues. Further recommendations to follow. MMODL / IJN: [id number] /
[2018-04-20] MEDS: SYMBICORT 160-4.5 MCG INHALER INHALATION SCH (15:53)
[2018-04-20] MEDS: IPRATROPIUM-ALBUTEROL 3 ML NEB INHALATION SCH ×3 (15:53→20:01)
[2018-04-20 15:56] LABS: Glucose,Whole Blood 203 mg/dL (75-99)
[2018-04-20 16:59] LABS: Glucose,Whole Blood 223 mg/dL (75-99)
[2018-04-20 17:53] LABS: Glucose,Whole Blood 226 mg/dL (75-99)
[2018-04-20 18:09] LABS: Glucose,Whole Blood 203 mg/dL (75-99)
[2018-04-20 19:04] LABS: Glucose,Whole Blood 235 mg/dL (75-99)
[2018-04-20 20:03] LABS: Glucose,Whole Blood 213 mg/dL (75-99)
[2018-04-20 21:00] LABS: Glucose,Whole Blood 196 mg/dL (75-99)
[2018-04-20] MEDS: PANTOPRAZOLE 40 MG/10 ML VIAL IV SCH (21:31)
[2018-04-20 22:23] LABS: Glucose,Whole Blood 209 mg/dL (75-99)
[2018-04-20 23:47] LABS: Glucose,Whole Blood 265 mg/dL (75-99)
--- NOTE | 2018-04-21 00:48 | CONS ---
CONSULTATION DATE OF SERVICE: 04/20/2018. REASON FOR CONSULTATION: Sepsis and facial abscess and cellulitis. HISTORY OF PRESENT ILLNESS: The patient is a 53-year-old female who presented to the ER at [facility] with chief complaints of facial pain and abscess. The patient has developed 2 abscesses on her facial area on the left cheek and on the chin area. The symptoms started as a pimple that has gradually increased in size, becoming more swollen, red, and painful. Pain described to be throbbing, almost 7 to 8/10, with associated swelling, redness and minimal drainage. The patient is complaining of some fever with chills. With these symptoms, the patient has been evaluated by the ER physician. The patient did have a CT of the facial wound which did not show any bony changes and did not mention any abscesses. The patient has been admitted to the ICU and has been treated with broad-spectrum antibiotics in the form of vancomycin and meropenem. Infectious Disease was consulted for further recommendation of antibiotic therapy. The patient did have a previous history of MRSA skin soft tissue infection. Denies having any problem with dentition. CT of the soft tissue of the neck shows enlarged tongue and soft palate with some narrowing of the airway, though no discrete mass. She has been running a low-grade fever of 100.9 and her white count was elevated at 16.1, repeat 17.6, with a hemoglobin of 6.9. REVIEW OF SYSTEMS: CONSTITUTIONAL: Positive for weakness and some chills along with low grade fever. EYES: No complaint. ENT: As per HPI. RESPIRATORY: No shortness of breath. CARDIOVASCULAR: No complaint. GENITOURINARY: No complaint. GASTROINTESTINAL: No complaint. MUSCULOSKELETAL: No complaint. INTEGUMENTARY: As per HPI. PSYCHOLOGICAL: No complaint. ENDOCRINE: No complaint. NEUROLOGIC: No complaint. PAST MEDICAL HISTORY: Significant for hypertension, hyperlipidemia, renal disease, gastroesophageal reflux disease, diabetes mellitus, asthma, migraine headache, diabetic neuropathy, history of pancreatitis. PAST SURGICAL HISTORY: and uterine ablation. SOCIAL HISTORY: Denies smoking. Occasionally drinks. No drug use. FAMILY HISTORY: Father history of cancerous polyp. Mother history of hypertension and borderline diabetes mellitus. ALLERGIES: To multiple medications including PENICILLIN, SULFA, RUBELLA VACCINE, HYDROCODONE. MEDICATIONS: Include the patient is currently on: 1. Tylenol. 2. DuoNeb. 3. Norvasc. 4. Symbicort. 5. Coreg. 6. Celexa. 7. Catapres. 8. Lovenox. 9. Erythromycin ointment. 10.Claritin. 11.Meropenem 2 g every 12. 12.Vancomycin, pharmacy to dose. 13.Ceftriaxone. PHYSICAL EXAMINATION: Her blood pressure is 140/76 with a pulse of 84, temperature 98.2, she is 99% on room air. GENERAL DESCRIPTION: A middle aged female lying in bed in no distress. No tachypnea or accessory muscle of respiration use. HEENT: Shows pallor, no scleral icterus. Oral mucosa is dry. No pharyngeal erythema. NECK: Trachea central. No thyromegaly. LUNGS: Unlabored breathing. Clear to auscultation anteriorly. HEART: S1, S2. Regular rate and rhythm. ABDOMEN: Soft, no tenderness. No guarding or rigidity. EXTREMITIES: No edema of the feet. SKIN: Examination on the right cheek, the patient did have an indurated area, with minimal pressure purulent material came out which was cultured. Same region on the right side of the chin but did not have significant induration. NEUROLOGIC: The patient is awake, alert, oriented. Mood and affect normal. LABS: Hemoglobin 10.5, white count 17.6, BUN of 88, creatinine 1.83. Urine has been negative. DIAGNOSTIC IMPRESSION AND PLAN: 1. Patient admitted to the hospital with sepsis. The patient did have a facial abscess likely from an MRSA, clinically doubt a gram-negative infection of the oral cavity and no evidence of any other site of infection. 2. Patient noted to have multiple antibiotic allergies which will limit the number of antibiotics that could be safely used. 3. Borderline kidney function, high risk of nephrotoxicity. PLAN: 1. Vancomycin, pharmacy to dose. Target of . Monitor kidney function closely. 2. Discontinue the meropenem as no gram negative has been grown. 3. IV fluids. 4. Would bria the area of induration on the cheek area and if does not improve, may benefit from a surgical drainage. 5. We will follow up on clinical condition and culture to further adjust medication if needed. Thank you for this consultation. Will follow this patient along with you. MMODL / IJN: [id number] /
[2018-04-21 01:14] LABS: Glucose,Whole Blood 277 mg/dL (75-99)
[2018-04-21] MEDS: INSULIN REGULAR 100 UNIT in SODIUM CHLORIDE 0.9% 100 ML IV SCH ×2 (01:25→10:19)
[2018-04-21] MEDS: D5-0.45% NACL WITH KCL 20MEQ/L 1,000 ML IV SCH ×3 (01:26→10:27)
[2018-04-21 02:28] LABS: Glucose,Whole Blood 285 mg/dL (75-99)
[2018-04-21 02:58] LABS: Glucose,Whole Blood 308 mg/dL (75-99)
[2018-04-21 04:58] LABS: Glucose,Whole Blood 289 mg/dL (75-99)
[2018-04-21 05:29] LABS: Glucose,Whole Blood 318 mg/dL (75-99)
[2018-04-21] MEDS: HYDROmorphone 1 MG/ML 1 ML SYRINGE IVP PRN ×4 (05:35→18:40)
[2018-04-21 05:53] LABS: Basophils % (A) 0 %; Eosinophils # (A) 0.3 k/uL (0-0.7); Eosinophils % (A) 3 %; HCT 21.3 % (34.0-46.0); HGB 7.3 gm/dL (11.4-16.0); Lymphocytes % (A) 10 %; MCH 30.1 pg (25.0-35.0); MCHC 34.2 g/dL (31.0-37.0); MCV 88.1 fL (80.0-100.0); Mean Platelet Volume 6.5; Monocytes # (A) 0.6 k/uL (0-1.0); Monocytes % (A) 5 %; Neutrophils # (A) 8.7 k/uL (1.3-7.7); Neutrophils % (A) 81 %; Platelet Count 201 k/uL (150-450); RBC 2.42 m/uL (3.80-5.40); RDW 15.1 % (11.5-15.5); WBC 10.8 k/uL (3.8-10.6)
[2018-04-21 06:02] LABS: Albumin 2.5 g/dL (3.5-5.0); Calcium 7.8 mg/dL (8.4-10.2); Phosphorus 2.8 mg/dL (2.5-4.5); Potassium 4.7 mmol/L (3.5-5.1); Total Bilirubin 0.2 mg/dL (0.2-1.3); Total Protein 5.1 g/dL (6.3-8.2)
[2018-04-21 06:07] LABS: Vancomycin,Random 24.1 ug/mL
[2018-04-21 06:59] LABS: Glucose,Whole Blood 291 mg/dL (75-99)
--- NOTE | 2018-04-21 07:13 | XR ---
EXAMINATION TYPE: XR chest 1V DATE OF EXAM: 04/21/2018 HISTORY: copd exac. REFERENCE: Previous study dated 04/20/2018. FINDINGS: Heart size upper limits of normal. The lungs are clear. Pleural spaces are clear. IMPRESSION: BORDERLINE CARDIOMEGALY.
[2018-04-21] MEDS: IPRATROPIUM-ALBUTEROL 3 ML NEB INHALATION SCH ×4 (07:28→19:40)
[2018-04-21] MEDS: SYMBICORT 160-4.5 MCG INHALER INHALATION SCH (07:28)
[2018-04-21 08:07] LABS: Glucose,Whole Blood 257 mg/dL (75-99)
[2018-04-21] MEDS: CARVEDILOL 12.5 MG TAB PO SCH ×2 (08:15→17:59)
[2018-04-21] MEDS: N PO SCH (08:16)
[2018-04-21] MEDS: ENOXAPARIN 30 MG/0.3 ML SYRINGE SQ SCH (08:16)
[2018-04-21] MEDS: amLODIPine 10 MG TAB PO SCH (08:16)
[2018-04-21] MEDS: ERYTHROMYCIN 5 MG/GM OPHTH OINT 3.5 GM TUBE RIGHT EYE SCH ×4 (08:17→21:07)
[2018-04-21] MEDS: PANTOPRAZOLE 40 MG/10 ML VIAL IV SCH ×2 (08:17→21:07)
[2018-04-21] MEDS: LORATADINE 10 MG TAB PO SCH (08:17)
[2018-04-21] MEDS: GABAPENTIN 300 MG CAP PO SCH ×3 (08:17→21:07)
[2018-04-21 09:11] LABS: Glucose,Whole Blood 292 mg/dL (75-99)
[2018-04-21 10:16] LABS: Glucose,Whole Blood 291 mg/dL (75-99)
[2018-04-21] MEDS: cloNIDine HCL 0.2 MG TAB PO SCH ×3 (10:19→21:06)
[2018-04-21 12:10] LABS: Glucose,Whole Blood 266 mg/dL (75-99)
--- NOTE | 2018-04-21 12:24 | P.PN ---
Subjective Progress Note Date: 04/21/18 Principal diagnosis: Acute hyperosmolar, hyperglycemic state, acute sepsis secondary to facial cellulitis and abscess. This is a very pleasant 53-year-old female patient who follows with Dr. Galarza as her primary care physician. She has a history of morbid obesity, diabetes mellitus, diabetic nephropathy and retinopathy, pancreatitis, anxiety, gastroesophageal reflux, hypertension. She also has a history of mild persistent chronic bronchial asthma and follows with Dr. Blanc in our office for the same. She is maintained on Symbicort and pro-air. She had recently been treated for an exacerbation with steroids. She also recently had issues with a infected tooth in the left upper jaw. She was seen by her cousin who is a dentist near [facility]. Dr. Arthur Minaya who had pretreated her with antibiotics and then saw her on 04/12/2018. He is planning for further procedures possibly a crown. Two days after that she developed a pimple-like abscess on her left lateral chin area which worsened into 3 other facial lesions. She also presented here to the emergency room on 04/15/2018 with complaints of the same. Her face was more swollen. There was drainage from the lesions. There is a stye in the right eye as well. She was initiated on clindamycin 300 mg every 6 hours, erythromycin ophthalmic ointment to the right eye and Bactroban ointment topical and discharged. She returned here yesterday for a wound recheck. The patient had worsening swelling, worsening redness and fever with chills and malaise. She also was found to have blood glucose levels as high as 1129. Acetone negative. Lactic acid initially 4.4, follow-up last evening 6.6. She was also hyponatremic at 118. Chloride 82. Bicarb 17. White count 16.1. Hemoglobin 6.9. Creatinine 2.32. Wound, urine, blood cultures are pending. She has received 1 unit of packed red blood cells and her current hemoglobin 7.5. She received 1 dose of ceftriaxone. She is currently on vancomycin and meropenem. ID has been consulted. She was initiated on an insulin drip currently on hold. Current blood glucose 131. She has received 4 L of fluid resuscitation and per [facility] protocol she is currently on D5 4 5 with 20 KCl at 150 MLS per hour. She is seen in consultation in the emergency department. She is currently awake and alert in no acute distress. She is having ongoing facial pain as well as left upper mandibular pain. No significant shortness of breath at this time. Maintaining good O2 saturations in the 90s on room air. Chest x-ray shows borderline cardiomegaly but no acute cardiopulmonary process. Computed tomography scan of the facial bones was negative. No evidence of sinusitis. Computed tomography scan of the soft tissue neck without contrast revealed a large tongue and soft palate with some narrowing of the airway. No discrete mass was seen. No evidence of an abscess. Nonspecific submandibular lymph nodes. Labs have improved. Sodium 132. Bicarb 18. Creatinine 1.81. Lactic 1.1. White count 17.6. Hemoglobin 7.5. Patient was reevaluated today on 04/21/2018, patient remains in the ICU, but she seems to be doing relatively well, hemodynamically stable, sugars remain a bit elevated requiring insulin drip, but all her labs have shown a significant improvement over the last 24 hours. Remains on antibiotics for cellulitis and sepsis from facial infection secondary to MRSA. Labs today showed elevated BUN of 69 creatinine 2.0 bicarb is 17 hemoglobin is 7.3, it was 6.9 on admission. Patient did receive 2 units of packed RBCs since admission, being followed by gastroenterology to evaluate for possible GI blood loss. Patient is known to have history of prepyloric antral ulcers , has been reporting darker colored stools but no other GI symptoms. Obviously there is a definite concern about possible recurrent peptic ulcer disease especially with the patient taking recently significant amount of nonsteroidal anti-inflammatory drugs. Objective - Vital Signs Vital signs: Vital Signs Temp 98.6 F 04/21/18 12:00 Pulse 74 04/21/18 12:00 Resp 12 04/21/18 12:00 BP 102/63 04/21/18 12:00 Pulse Ox 98 04/21/18 12:00 Intake & Output 04/20/18 04/21/18 04/21/18 18:59 06:59 18:59 Intake Total 2436.430 4708.342 1226.63 Output Total 715 1750 410 Balance 1721.430 547.224 0796.63 Weight 108.862 kg 115.9 kg Intake: IV 2110 1800 1100 D5-0.45% NaCl with KCl 1500 1800 1100 20Meq/l 1,000 ml @ 50 mls /hr IV .Q20H [facility] Rx#: [id number] Meropenem 2 gm In Sodium 100 Chloride 0.9% 100 ml @ 200 mls/hr IVPB Q12H [facility] Rx#:[id number] Sodium Chloride 0.9% 1, 10 000 ml @ 100 mls/hr IV . Q10H [facility] Rx#:[id number] vancomycin 500 Intake, IV Titration 16.430 16.776 13.63 Amount Insulin Regular 100 unit 16.430 16.776 13.63 In Sodium Chloride 0.9% 100 ml @ 0.1 UNITS/KG/HR 10.99 mls/hr IV .Q9H12M [facility] Rx#:[id number] Oral 180 380 Blood Product 310 Rc As-3 Unit 310 [id number] Output: Urine 715 1750 410 Other: Voiding Method Indwelling Catheter Indwelling Catheter Indwelling Catheter # Bowel Movements 0 - Exam General appearance: Revealed a 53-year-old female in no distress. Head: Atraumatic, normocephalic, Eyes: PERRLA, EOMI. No icterus. Neck: Supple without lymphadenopathy. Trachea midline. Heart: Normal S1 and S2, no S3 gallop.. Lungs: Clear throughout, no crackles or rhonchi or wheezes. Abdomen: Soft, nontender, nondistended with bowel sounds. No peritoneal signs. No palpable organomegaly or masses. Extremities: Normal skin color and turgor. No cyanosis, rash, ulceration, clubbing, or edema. Radial and pedal pulses are 2/4 bilaterally. Neurological: No focal deficits. Strength and sensation are grossly intact. Skin: Evidence of significant cellulitis, and pustular lesions noted throughout the face. - Labs CBC & Chem 7: 04/21/18 05:41 04/21/18 05:41 Labs: Abnormal Lab Results - Last 24 Hours (Table) 04/19/18 04/20/18 04/20/18 Range/Units 17:20 12:28 13:19 WBC (3.8-10.6) k/uL RBC (3.80-5.40) m/uL Hgb (11.4-16.0) gm/dL Hct (34.0-46.0) % Neutrophils # (1.3-7.7) k/uL Sodium (137-145) mmol/L Carbon Dioxide (22-30) mmol/L BUN (7-17) mg/dL Creatinine (0.52-1.04) mg/dL Glucose (74-99) mg/dL POC Glucose (mg/dL) 124 H 170 H (75-99) mg/dL Calcium (8.4-10.2) mg/dL Total Protein (6.3-8.2) g/dL Albumin (3.5-5.0) g/dL Crossmatch See Detail 04/20/18 04/20/18 04/20/18 Range/Units 14:51 15:55 16:57 WBC (3.8-10.6) k/uL RBC (3.80-5.40) m/uL Hgb (11.4-16.0) gm/dL Hct (34.0-46.0) % Neutrophils # (1.3-7.7) k/uL Sodium (137-145) mmol/L Carbon Dioxide (22-30) mmol/L BUN (7-17) mg/dL Creatinine (0.52-1.04) mg/dL Glucose (74-99) mg/dL POC Glucose (mg/dL) 211 H 203 H 223 H (75-99) mg/dL Calcium (8.4-10.2) mg/dL Total Protein (6.3-8.2) g/dL Albumin (3.5-5.0) g/dL Crossmatch 04/20/18 04/20/18 04/20/18 Range/Units 17:51 18:08 19:02 WBC (3.8-10.6) k/uL RBC (3.80-5.40) m/uL Hgb (11.4-16.0) gm/dL Hct (34.0-46.0) % Neutrophils # (1.3-7.7) k/uL Sodium (137-145) mmol/L Carbon Dioxide (22-30) mmol/L BUN (7-17) mg/dL Creatinine (0.52-1.04) mg/dL Glucose (74-99) mg/dL POC Glucose (mg/dL) 226 H 203 H 235 H (75-99) mg/dL Calcium (8.4-10.2) mg/dL Total Protein (6.3-8.2) g/dL Albumin (3.5-5.0) g/dL Crossmatch 04/20/18 04/20/18 04/20/18 Range/Units 20:02 20:58 22:21 WBC (3.8-10.6) k/uL RBC (3.80-5.40) m/uL Hgb (11.4-16.0) gm/dL Hct (34.0-46.0) % Neutrophils # (1.3-7.7) k/uL Sodium (137-145) mmol/L Carbon Dioxide (22-30) mmol/L BUN (7-17) mg/dL Creatinine (0.52-1.04) mg/dL Glucose (74-99) mg/dL POC Glucose (mg/dL) 213 H 196 H 209 H (75-99) mg/dL Calcium (8.4-10.2) mg/dL Total Protein (6.3-8.2) g/dL Albumin (3.5-5.0) g/dL Crossmatch 04/20/18 04/21/18 04/21/18 Range/Units 23:46 01:12 02:26 WBC (3.8-10.6) k/uL RBC (3.80-5.40) m/uL Hgb (11.4-16.0) gm/dL Hct (34.0-46.0) % Neutrophils # (1.3-7.7) k/uL Sodium (137-145) mmol/L Carbon Dioxide (22-30) mmol/L BUN (7-17) mg/dL Creatinine (0.52-1.04) mg/dL Glucose (74-99) mg/dL POC Glucose (mg/dL) 265 H 277 H 285 H (75-99) mg/dL Calcium (8.4-10.2) mg/dL Total Protein (6.3-8.2) g/dL Albumin (3.5-5.0) g/dL Crossmatch 04/21/18 04/21/18 04/21/18 Range/Units 02:56 04:56 05:26 WBC (3.8-10.6) k/uL RBC (3.80-5.40) m/uL Hgb (11.4-16.0) gm/dL Hct (34.0-46.0) % Neutrophils # (1.3-7.7) k/uL Sodium (137-145) mmol/L Carbon Dioxide (22-30) mmol/L BUN (7-17) mg/dL Creatinine (0.52-1.04) mg/dL Glucose (74-99) mg/dL POC Glucose (mg/dL) 308 H 289 H 318 H (75-99) mg/dL Calcium (8.4-10.2) mg/dL Total Protein (6.3-8.2) g/dL Albumin (3.5-5.0) g/dL Crossmatch 04/21/18 04/21/18 04/21/18 Range/Units 05:41 05:41 06:58 WBC 10.8 H (3.8-10.6) k/uL RBC 2.42 L (3.80-5.40) m/uL Hgb 7.3 L (11.4-16.0) gm/dL Hct 21.3 L (34.0-46.0) % Neutrophils # 8.7 H (1.3-7.7) k/uL Sodium 132 L (137-145) mmol/L Carbon Dioxide 17 L (22-30) mmol/L BUN 69 H (7-17) mg/dL Creatinine 2.00 H (0.52-1.04) mg/dL Glucose 271 H (74-99) mg/dL POC Glucose (mg/dL) 291 H (75-99) mg/dL Calcium 7.8 L (8.4-10.2) mg/dL Total Protein 5.1 L (6.3-8.2) g/dL Albumin 2.5 L (3.5-5.0) g/dL Crossmatch 04/21/18 04/21/18 04/21/18 Range/Units 08:04 09:09 10:14 WBC (3.8-10.6) k/uL RBC (3.80-5.40) m/uL Hgb (11.4-16.0) gm/dL Hct (34.0-46.0) % Neutrophils # (1.3-7.7) k/uL Sodium (137-145) mmol/L Carbon Dioxide (22-30) mmol/L BUN (7-17) mg/dL Creatinine (0.52-1.04) mg/dL Glucose (74-99) mg/dL POC Glucose (mg/dL) 257 H 292 H 291 H (75-99) mg/dL Calcium (8.4-10.2) mg/dL Total Protein (6.3-8.2) g/dL Albumin (3.5-5.0) g/dL Crossmatch 04/21/18 Range/Units 12:08 WBC (3.8-10.6) k/uL RBC (3.80-5.40) m/uL Hgb (11.4-16.0) gm/dL Hct (34.0-46.0) % Neutrophils # (1.3-7.7) k/uL Sodium (137-145) mmol/L Carbon Dioxide (22-30) mmol/L BUN (7-17) mg/dL Creatinine (0.52-1.04) mg/dL Glucose (74-99) mg/dL POC Glucose (mg/dL) 266 H (75-99) mg/dL Calcium (8.4-10.2) mg/dL Total Protein (6.3-8.2) g/dL Albumin (3.5-5.0) g/dL Crossmatch Microbiology - Last 24 Hours (Table) 04/20/18 12:56 Gram Stain - Preliminary Face Wound Culture - Preliminary 04/19/18 20:01 Gram Stain - Preliminary Face Wound Culture - Preliminary Presumptive MRSA 04/19/18 17:20 Blood Culture - Preliminary Blood No Growth after 24 hours Assessment and Plan Assessment: #1 Hyperosmolar hyperglycemic state , most likely triggered by sepsis and cellulitis involving the face. #2 Sepsis secondary to cellulitis and abscess of the face. Secondary to MRSA, continue antibiotics as ordered. #3 Left upper tooth dental infection. #4 Anemia of unclear etiology the patient has had dark colored diarrhea and been taking NSAIDs for her facial pain. Possible recurrent ulcer involving the stomach. #5 Acute on chronic renal failure. #6 Diabetes mellitus, type II. #7 Diabetic nephropathy. #8 Diabetic retinopathy. #9 History of pancreatitis. #10 Mild intermittent asthma, currently inactive and stable. #11 Gastroesophageal reflux disease. #12 Anxiety. Recommendation: Continue antibiotics, continue fluids, patient could be transferred out of the ICU, she is presently on insulin drip which we will continue. But she is hemodynamically stable enough to be transferred out of the ICU to a regular medical floor, patient is being followed by infectious disease on consultation. Time with Patient: Less than 30
[2018-04-21] MEDS: INSULIN ASPART 100 UNIT/ML 1 ML 10 ML VIAL SQ SCH ×4 (12:26→21:04)
--- NOTE | 2018-04-21 12:56 | P.CRDCN ---
History of Present Illness Consult date: 04/21/18 History of present illness: This is a pleasant 53-year-old female patient with a past medical history significant for diabetes on insulin, hypertension, dyslipidemia, and chronic kidney disease as well as obesity who was admitted to the hospital with hyperosmolar hyperglycemic state with sepsis secondary to cellulitis and abscess in her face. We get involved in the care of the patient because the cardiac enzymes were checked and came in to be slightly elevated and not consistent with acute myocardial infarction. The patient is not aware of any history of coronary artery disease and never seen any automatic packer operator in the past. More importantly she denies having any chest pain or chest discomfort, difficulty breathing, but she has been experiencing heart racing and fluttering. She has been hemodynamically stable. The EKG showed sinus rhythm with ST changes in the anterolateral leads. The cardiac enzymes are mildly elevated but below 1. Please note that the patient creatinine is around 2 and the hemoglobin is around 7. I would consider a conservative medical approach at this point of time, I am going to add aspirin. She is on beta vinicius which we will continue. Obtain an echocardiogram was Doppler. Once the patient recovered from her sepsis, severe underlying coronary artery disease needs to be ruled out. 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 Smoking Status: Never smoker Past Alcohol Use History: Rare Past Drug Use History: None Reported - Past Family History Father Family Medical History: Cancer Additional Family Medical History / Comment(s): cancerous polyp Mother Family Medical History: Hypertension Additional Family Medical History / Comment(s): irreg heart beat, boarderline dm Medications and Allergies Home Medications Medication Instructions Recorded Confirmed Type Albuterol Sulfate [Proair Hfa] 2 puff INHALATION RT-Q4H PRN 02/25/17 04/19/18 History Citalopram Hydrobromide [CeleXA] 40 mg PO DAILY 02/25/17 04/19/18 History Gabapentin 600 mg PO TID 02/25/17 04/19/18 History Insulin Aspart Protam & Aspart 25 unit SQ AC-SUPPER 02/25/17 04/19/18 History [NovoLOG MIX 70-30 Flexpen] Insulin Aspart Protam & Aspart 35 unit SQ AC-BRKFST 02/25/17 04/19/18 History [NovoLOG MIX 70-30 Flexpen] amLODIPine [Norvasc] 10 mg PO DAILY 02/25/17 04/19/18 History Fluticasone Nasal [place] [Flonase 1 - 2 spray EA NOSTRIL HS PRN 08/15/17 History Nasal [place]] Albuterol Nebulized [Ventolin 2.5 mg INHALATION RT-QID PRN 11/14/17 04/19/18 History Nebulized] Budesonide/Formoterol Fumarate 2 puff INHALATION RT-DAILY 11/14/17 04/19/18 History [Symbicort 160-4.5 Mcg Inhaler] Cetirizine HCl [Zyrtec] 10 mg PO DAILY 11/14/17 04/19/18 History Gemfibrozil [Lopid] 600 mg PO BID 11/14/17 04/19/18 History Pantoprazole [Protonix] 40 mg PO DAILY 11/14/17 04/19/18 History Zolpidem [Ambien] 10 mg PO HS PRN 11/14/17 04/19/18 History Chlorthalidone [Hygroton] 25 mg PO DAILY #30 tab 11/20/17 04/19/18 Rx cloNIDine HCL [Catapres] 0.2 mg PO TID #90 tab 11/20/17 04/19/18 Rx Carvedilol [Coreg*] 25 mg PO BID 12/29/17 04/19/18 History Ranitidine HCl [Zantac] 150 mg PO BID 12/29/17 04/19/18 History Sodium Bicarbonate Tab 650 mg PO MO 12/29/17 04/19/18 History Clindamycin HCl 300 mg PO Q6H #40 cap 04/15/18 04/19/18 Rx Erythromycin Ophth Oint [Romycin 1 applic RIGHT EYE QID 7 Days gm 04/15/1805/27 Rx Ophth Oint] Mupirocin 2% Oint [Bactroban Oint] 1 applic TOPICAL TID #1 gm 04/15/18 04/19/18 Rx Ibuprofen [Motrin Ib] 200 mg PO TID PRN 04/19/18 04/19/18 History Allergies Allergy/AdvReac Type Severity Reaction Status Date / Time adhesive tape Allergy Itching/swe Verified 04/19/18 17:34 lling hydrocodone [From [place]] Allergy Hallucinati Verified 04/19/18 17:34 ons/vomitin g measles, mumps, and rubella Allergy Rash/Hives Verified 04/19/18 17:34 vaccine Penicillins Allergy Anaphylaxis Verified 04/19/18 17:34 Sulfa (Sulfonamide Allergy Anaphylaxis Verified 04/19/18 17:34 Antibiotics) Physical Exam Vitals: Vital Signs Temp Pulse Pulse Resp BP Pulse Ox 04/21/18 12:00 98.6 F 74 12 102/63 98 04/21/18 11:31 73 04/21/18 11:23 70 04/21/18 11:00 72 12 112/54 98 04/21/18 10:00 73 12 112/54 98 04/21/18 09:00 75 12 113/60 94 L 04/21/18 08:00 98.6 F 82 15 112/58 100 04/21/18 07:38 79 04/21/18 07:28 78 04/21/18 07:00 78 12 135/62 100 04/21/18 06:00 73 14 135/62 100 04/21/18 05:00 98.4 F 78 15 122/63 100 04/21/18 04:00 68 13 122/63 100 04/21/18 03:00 68 14 121/56 100 04/21/18 02:00 69 14 121/56 100 04/21/18 01:30 70 13 99 04/21/18 01:00 69 13 109/55 100 04/21/18 00:30 69 14 109/55 100 04/21/18 00:00 98.4 F 70 15 109/55 100 04/20/18 23:30 68 13 100 04/20/18 23:27 69 14 100 04/20/18 23:00 69 14 100 04/20/18 22:30 70 14 136/64 100 04/20/18 22:00 73 13 136/64 100 04/20/18 21:30 77 15 136/64 99 04/20/18 21:00 70 14 99 04/20/18 20:30 68 14 99 04/20/18 20:00 98.4 F 67 72 14 99 04/20/18 19:47 98 04/20/18 19:30 67 13 98 04/20/18 19:00 68 13 97 04/20/18 18:30 74 14 100 04/20/18 18:00 78 11 L 121/87 100 04/20/18 17:33 98.3 F 84 14 140/76 98 04/20/18 17:30 81 15 152/79 98 04/20/18 17:00 80 12 155/82 99 04/20/18 16:30 81 13 99 04/20/18 16:00 97.7 F 82 13 155/65 99 04/20/18 15:30 81 12 153/68 99 04/20/18 15:00 63 20 151/67 99 04/20/18 14:58 97.7 F 80 12 141/72 99 04/20/18 14:45 79 12 133/72 98 04/20/18 14:30 79 12 134/61 97 04/20/18 14:28 98.1 F 80 13 135/64 99 04/20/18 14:18 98.7 F 82 12 134/61 93 L 04/20/18 14:15 83 14 162/63 96 04/20/18 14:00 79 14 164/68 94 L 04/20/18 13:45 80 13 164/68 94 L 04/20/18 13:30 80 16 164/68 96 04/20/18 13:15 81 15 164/68 95 04/20/18 13:00 81 14 164/68 93 L Intake and Output 04/20/18 04/21/18 04/21/18 22:59 06:59 14:59 Intake Total 9426.385 8071.988 1493.63 Output Total 850 1050 410 Balance 941.259 803.818 5288.63 Intake: IV 1410 1200 1100 D5-0.45% NaCl with KCl 900 1200 1100 20Meq/l 1,000 ml @ 50 mls /hr IV .Q20H [facility] Rx#: [id number] Sodium Chloride 0.9% 1, 10 000 ml @ 100 mls/hr IV . Q10H [facility] Rx#:[id number] vancomycin 500 Intake, IV Titration 11.259 8.988 13.63 Amount Insulin Regular 100 unit 11.259 8.988 13.63 In Sodium Chloride 0.9% 100 ml @ 0.1 UNITS/KG/HR 10.99 mls/hr IV .Q9H12M [facility] Rx#:[id number] Oral 60 120 380 Blood Product 310 Rc As-3 Unit 310 [id number] Output: Urine 850 1050 410 Other: Voiding Method Indwelling Catheter Indwelling Catheter Indwelling Catheter # Bowel Movements 0 0 Weight 115.9 kg - Constitutional General appearance: no acute distress - Respiratory Respiratory: bilateral: diminished - Cardiovascular Rhythm: regular Heart sounds: normal: S1, S2 Results 04/21/18 05:41 04/21/18 05:41 Cardiac Enzymes 04/21/18 Range/Units 05:41 AST 19 (14-36) U/L CBC 04/21/18 Range/Units 05:41 WBC 10.8 H (3.8-10.6) k/uL RBC 2.42 L (3.80-5.40) m/uL Hgb 7.3 L (11.4-16.0) gm/dL Hct 21.3 L (34.0-46.0) % Plt Count 201 (150-450) k/uL Comprehensive Metabolic Panel 04/21/18 Range/Units 05:41 Sodium 132 L (137-145) mmol/L Potassium 4.7 (3.5-5.1) mmol/L Chloride 107 (98-107) mmol/L Carbon Dioxide 17 L (22-30) mmol/L BUN 69 H (7-17) mg/dL Creatinine 2.00 H (0.52-1.04) mg/dL Glucose 271 H (74-99) mg/dL Calcium 7.8 L (8.4-10.2) mg/dL AST 19 (14-36) U/L ALT 25 (9-52) U/L Alkaline Phosphatase 51 (38-126) U/L Total Protein 5.1 L (6.3-8.2) g/dL Albumin 2.5 L (3.5-5.0) g/dL Current Medications Generic Name Dose Route Start Last Admin Trade Name Freq PRN Reason Stop Dose Admin Acetaminophen 1,000 mg 04/19/18 21:02 04/19/18 21:12 Tylenol Tab PO 1,000 mg Q6HR PRN Administration Fever and/or MILD Pain Albuterol/Ipratropium 3 ml 04/19/18 20:00 04/21/18 11:22 Duoneb 0.5 Mg-3 Mg/3 Ml Soln INHALATION 3 ml RT-QID [facility] Administration Amlodipine Besylate 10 mg 04/19/18 23:45 04/21/18 08:16 Norvasc PO 10 mg DAILY [facility] Administration Aspirin 81 mg 04/21/18 13:00 Aspirin PO DAILY [facility] Budesonide/Formoterol Fumarate 2 puff 04/20/18 08:00 04/21/18 07:28 Symbicort 160-4.5 Mcg Inhaler INHALATION 2 puff RT-DAILY [facility] Administration Carvedilol 25 mg 04/19/18 23:45 04/21/18 08:15 Coreg PO 25 mg BID-W/MEALS [facility] Administration Citalopram Hydrobromide 40 mg 04/20/18 09:00 04/21/18 08:16 Celexa PO 40 mg DAILY [facility] Administration Clonidine 0.2 mg 04/19/18 23:45 04/21/18 10:19 Catapres PO 0.2 mg TID [facility] Administration Enoxaparin Sodium 30 mg 04/21/18 09:00 04/21/18 08:16 Lovenox SQ 30 mg DAILY [facility] Administration Erythromycin 1 applic 04/20/18 09:00 04/21/18 08:17 Romycin Ophth Oint RIGHT EYE 1 applic QID [facility] Administration Fluticasone Propionate 1 - 2 spray 04/20/18 00:36 Flonase Nasal [place] EA NOSTRIL HS PRN Allergy Symptoms Gabapentin 600 mg 04/20/18 09:00 04/21/18 08:17 Neurontin PO 600 mg TID [facility] Administration Hydromorphone HCl 1 mg 04/20/18 11:22 04/21/18 10:30 Dilaudid IVP 1 mg Q2HR PRN Administration MODERATE TO SEVERE Pain Potassium Chloride/Dextrose/Sod Cl 1,000 mls @ 50 mls/hr 04/19/18 18:45 04/21 10:27 D5%-1/2ns-Kcl 20 Meq/L Iv Solution IV 150 mls/hr .Q20H [facility] Administration Vancomycin HCl 1,750 mg/ 500 mls @ 167 mls/hr 04/22/18 06:00 Sodium Chloride IVPB 04/22/18 08:59 ONCE ONE Insulin Aspart 0 unit 04/21/18 12:30 04/21/18 12:26 Novolog SQ 6 unit ACHS [facility] Administration Protocol Insulin Aspart 25 unit 04/21/18 12:00 04/21/18 12:26 Novolog SQ 25 unit AC-BRKFST [facility] Administration Insulin Aspart 15 unit 04/21/18 17:30 Novolog SQ AC-SUPPER [facility] Loratadine 10 mg 04/20/18 09:00 04/21/18 08:17 Claritin PO 10 mg DAILY [facility] Administration Miscellaneous Information 1 each 04/19/18 17:37 Pharmacy To Dose Iv Vancomycin MISCELLANE DIRECTED PRN Per Protocol Naloxone HCl 0.2 mg 04/19/18 23:06 Narcan IV Q2M PRN Opioid Reversal Pantoprazole Sodium 40 mg 04/20/18 21:00 04/21/18 08:17 Protonix IV 40 mg BID [facility] Administration Sodium Bicarbonate 650 mg 04/23/18 09:00 Sodium Bicarbonate Tab PO Mo@0900 [facility] Temazepam 15 mg 04/20/18 00:43 Restoril PO HS PRN Insomnia Intake and Output 04/20/18 04/21/18 04/21/18 22:59 06:59 14:59 Intake Total 0099.116 8884.988 1493.63 Output Total 850 1050 410 Balance 941.259 942.858 2015.63 Intake: IV 1410 1200 1100 D5-0.45% NaCl with KCl 900 1200 1100 20Meq/l 1,000 ml @ 50 mls /hr IV .Q20H [facility] Rx#: [id number] Sodium Chloride 0.9% 1, 10 000 ml @ 100 mls/hr IV . Q10H [facility] Rx#:[id number] vancomycin 500 Intake, IV Titration 11.259 8.988 13.63 Amount Insulin Regular 100 unit 11.259 8.988 13.63 In Sodium Chloride 0.9% 100 ml @ 0.1 UNITS/KG/HR 10.99 mls/hr IV .Q9H12M [facility] Rx#:[id number] Oral 60 120 380 Blood Product 310 Rc As-3 Unit 310 [id number] Output: Urine 850 1050 410 Other: Voiding Method Indwelling Catheter Indwelling Catheter Indwelling Catheter # Bowel Movements 0 0 Weight 115.9 kg 04/21/18 05:41 04/21/18 05:41 Assessment and Plan Assessment: Assessment #1 hyperosmolar hyperglycemic state #2 dental/face abscess #3 anemia #4 chronic kidney disease #5 diabetes on insulin #6 multiple comorbid conditions Plan #1 consider conservative medical approach at this point of time #2 add aspirin to the current medical regimen #3 obtain an echocardiogram was Doppler #4 follow-up with the patient Thank you for allowing us participate in her care and we will continue following up with the patient
[2018-04-21] MEDS: ASPIRIN 81 MG PO SCH (13:27)
[2018-04-21 14:38] LABS: Glucose,Whole Blood 198 mg/dL (75-99)
[2018-04-21 16:38] LABS: Glucose,Whole Blood 113 mg/dL (75-99)
[2018-04-21] MEDS ORDERED: INSULIN ASPART 100 UNIT/ML 1 ML 10 ML VIAL SQ SCH (17:30)
[2018-04-21 20:49] LABS: Glucose,Whole Blood 57 mg/dL (75-99)
[2018-04-21 21:20] LABS: Glucose,Whole Blood 46 mg/dL (75-99)
--- NOTE | 2018-04-21 21:29 | P.PN ---
Subjective This is a pleasant 53 years old female who presents with left Side cheek abscess that is open and draining purulant discharge and failed outpatient treatment with hyperglycemia as high as 1129 on admission. With elevated troponin. Her sodium was low on admission as low as 118, but corrected for hyperglycemia it to be in mid 130s. Patient was treated with fluids and insulin drip. As well as antibiotic. pt today on 04/21 is telling me she started feeling better regarding her facial infection however there is still swelling ,redness and induration , pt is already on antiobiotic iv vancomycin , ID team is been consulted . her sugar is better controlled currently CONSTITUTIONAL: No fever, no malaise, no fatigue. HEENT: No recent visual problems or hearing problems. Denied any sore throat. CARDIOVASCULAR: No orthopnea, PND, no palpitations, no syncope. PULMONARY: No shortness of breath, no cough, no hemoptysis. GASTROINTESTINAL: No diarrhea, no nausea, no vomiting, no abdominal pain. Normoactive bowel sounds. NEUROLOGICAL: No headaches, no weakness, no numbness. HEMATOLOGICAL: Denies any bleeding or petechiae. GENITOURINARY: Denies any burning micturition, frequency, or urgency. MUSCULOSKELETAL/RHEUMATOLOGICAL: Denies any joint pain, swelling, or any muscle pain. ENDOCRINE: Denies any polyuria or polydipsia. Medication with dosages and reviewed including. Tylenol 1000 mg, dunobs 0.5-3 mg, Symbicort 162 4.5 g, Coreg 25 mg, Celexa 40 mg, Lovenox 30 mg, azithromycin ointment, Flonase nasal spray, Neurontin 600 mg, Dilaudid 1 mg, Claritin 10 mg, vancomycin as per pharmacy to dose, Protonix 40 mg, IV fluids at 50 mL per hour, sodium bicarb 650 mg, Restoril 50 mg, Objective - Vital Signs Vital signs: Vital Signs Temp 98.6 F 04/21/18 12:00 Pulse 74 04/21/18 12:00 Resp 12 04/21/18 12:00 BP 102/63 04/21/18 12:00 Pulse Ox 98 04/21/18 12:00 Intake & Output 04/20/18 04/21/18 04/21/18 18:59 06:59 18:59 Intake Total 2436.430 5287.926 0791.63 Output Total 715 1750 410 Balance 1721.430 323.420 6311.63 Weight 108.862 kg 115.9 kg Intake: IV 2110 1800 1100 D5-0.45% NaCl with KCl 1500 1800 1100 20Meq/l 1,000 ml @ 50 mls /hr IV .Q20H [facility] Rx#: [id number] Meropenem 2 gm In Sodium 100 Chloride 0.9% 100 ml @ 200 mls/hr IVPB Q12H [facility] Rx#:[id number] Sodium Chloride 0.9% 1, 10 000 ml @ 100 mls/hr IV . Q10H [facility] Rx#:[id number] vancomycin 500 Intake, IV Titration 16.430 16.776 13.63 Amount Insulin Regular 100 unit 16.430 16.776 13.63 In Sodium Chloride 0.9% 100 ml @ 0.1 UNITS/KG/HR 10.99 mls/hr IV .Q9H12M [facility] Rx#:[id number] Oral 180 380 Blood Product 310 Rc As-3 Unit 310 [id number] Output: Urine 715 1750 410 Other: Voiding Method Indwelling Catheter Indwelling Catheter Indwelling Catheter # Bowel Movements 0 - Exam GENERAL: The patient is alert and oriented x3, not in any acute distress. Well developed, well nourished. -HEENT: Pupils are round and equally reacting to light. EOMI. No scleral icterus. No conjunctival pallor. Normocephalic, atraumatic. No pharyngeal erythema. No thyromegaly. left cheek infection which is opon and there is purulent discharge with small area of underlying induration , CARDIOVASCULAR: S1 and S2 present. No murmurs, rubs, or gallops. PULMONARY: Chest is clear to auscultation, no wheezing or crackles. ABDOMEN: Soft, nontender, nondistended, normoactive bowel sounds. No palpable organomegaly. MUSCULOSKELETAL: No joint swelling or deformity. EXTREMITIES: No cyanosis, clubbing, or pedal edema. NEUROLOGICAL: Gross neurological examination did not reveal any focal deficits. SKIN: No rashes. - Labs CBC & Chem 7: 04/21/18 05:41 04/21/18 05:41 Labs: Abnormal Lab Results - Last 24 Hours (Table) 04/19/18 04/20/18 04/20/18 Range/Units 17:20 12:28 13:19 WBC (3.8-10.6) k/uL RBC (3.80-5.40) m/uL Hgb (11.4-16.0) gm/dL Hct (34.0-46.0) % Neutrophils # (1.3-7.7) k/uL Sodium (137-145) mmol/L Carbon Dioxide (22-30) mmol/L BUN (7-17) mg/dL Creatinine (0.52-1.04) mg/dL Glucose (74-99) mg/dL POC Glucose (mg/dL) 124 H 170 H (75-99) mg/dL Calcium (8.4-10.2) mg/dL Total Protein (6.3-8.2) g/dL Albumin (3.5-5.0) g/dL Crossmatch See Detail 04/20/18 04/20/18 04/20/18 Range/Units 14:51 15:55 16:57 WBC (3.8-10.6) k/uL RBC (3.80-5.40) m/uL Hgb (11.4-16.0) gm/dL Hct (34.0-46.0) % Neutrophils # (1.3-7.7) k/uL Sodium (137-145) mmol/L Carbon Dioxide (22-30) mmol/L BUN (7-17) mg/dL Creatinine (0.52-1.04) mg/dL Glucose (74-99) mg/dL POC Glucose (mg/dL) 211 H 203 H 223 H (75-99) mg/dL Calcium (8.4-10.2) mg/dL Total Protein (6.3-8.2) g/dL Albumin (3.5-5.0) g/dL Crossmatch 04/20/18 04/20/18 04/20/18 Range/Units 17:51 18:08 19:02 WBC (3.8-10.6) k/uL RBC (3.80-5.40) m/uL Hgb (11.4-16.0) gm/dL Hct (34.0-46.0) % Neutrophils # (1.3-7.7) k/uL Sodium (137-145) mmol/L Carbon Dioxide (22-30) mmol/L BUN (7-17) mg/dL Creatinine (0.52-1.04) mg/dL Glucose (74-99) mg/dL POC Glucose (mg/dL) 226 H 203 H 235 H (75-99) mg/dL Calcium (8.4-10.2) mg/dL Total Protein (6.3-8.2) g/dL Albumin (3.5-5.0) g/dL Crossmatch 04/20/18 04/20/18 04/20/18 Range/Units 20:02 20:58 22:21 WBC (3.8-10.6) k/uL RBC (3.80-5.40) m/uL Hgb (11.4-16.0) gm/dL Hct (34.0-46.0) % Neutrophils # (1.3-7.7) k/uL Sodium (137-145) mmol/L Carbon Dioxide (22-30) mmol/L BUN (7-17) mg/dL Creatinine (0.52-1.04) mg/dL Glucose (74-99) mg/dL POC Glucose (mg/dL) 213 H 196 H 209 H (75-99) mg/dL Calcium (8.4-10.2) mg/dL Total Protein (6.3-8.2) g/dL Albumin (3.5-5.0) g/dL Crossmatch 04/20/18 04/21/18 04/21/18 Range/Units 23:46 01:12 02:26 WBC (3.8-10.6) k/uL RBC (3.80-5.40) m/uL Hgb (11.4-16.0) gm/dL Hct (34.0-46.0) % Neutrophils # (1.3-7.7) k/uL Sodium (137-145) mmol/L Carbon Dioxide (22-30) mmol/L BUN (7-17) mg/dL Creatinine (0.52-1.04) mg/dL Glucose (74-99) mg/dL POC Glucose (mg/dL) 265 H 277 H 285 H (75-99) mg/dL Calcium (8.4-10.2) mg/dL Total Protein (6.3-8.2) g/dL Albumin (3.5-5.0) g/dL Crossmatch 04/21/18 04/21/18 04/21/18 Range/Units 02:56 04:56 05:26 WBC (3.8-10.6) k/uL RBC (3.80-5.40) m/uL Hgb (11.4-16.0) gm/dL Hct (34.0-46.0) % Neutrophils # (1.3-7.7) k/uL Sodium (137-145) mmol/L Carbon Dioxide (22-30) mmol/L BUN (7-17) mg/dL Creatinine (0.52-1.04) mg/dL Glucose (74-99) mg/dL POC Glucose (mg/dL) 308 H 289 H 318 H (75-99) mg/dL Calcium (8.4-10.2) mg/dL Total Protein (6.3-8.2) g/dL Albumin (3.5-5.0) g/dL Crossmatch 04/21/18 04/21/18 04/21/18 Range/Units 05:41 05:41 06:58 WBC 10.8 H (3.8-10.6) k/uL RBC 2.42 L (3.80-5.40) m/uL Hgb 7.3 L (11.4-16.0) gm/dL Hct 21.3 L (34.0-46.0) % Neutrophils # 8.7 H (1.3-7.7) k/uL Sodium 132 L (137-145) mmol/L Carbon Dioxide 17 L (22-30) mmol/L BUN 69 H (7-17) mg/dL Creatinine 2.00 H (0.52-1.04) mg/dL Glucose 271 H (74-99) mg/dL POC Glucose (mg/dL) 291 H (75-99) mg/dL Calcium 7.8 L (8.4-10.2) mg/dL Total Protein 5.1 L (6.3-8.2) g/dL Albumin 2.5 L (3.5-5.0) g/dL Crossmatch 04/21/18 04/21/18 04/21/18 Range/Units 08:04 09:09 10:14 WBC (3.8-10.6) k/uL RBC (3.80-5.40) m/uL Hgb (11.4-16.0) gm/dL Hct (34.0-46.0) % Neutrophils # (1.3-7.7) k/uL Sodium (137-145) mmol/L Carbon Dioxide (22-30) mmol/L BUN (7-17) mg/dL Creatinine (0.52-1.04) mg/dL Glucose (74-99) mg/dL POC Glucose (mg/dL) 257 H 292 H 291 H (75-99) mg/dL Calcium (8.4-10.2) mg/dL Total Protein (6.3-8.2) g/dL Albumin (3.5-5.0) g/dL Crossmatch 04/21/18 Range/Units 12:08 WBC (3.8-10.6) k/uL RBC (3.80-5.40) m/uL Hgb (11.4-16.0) gm/dL Hct (34.0-46.0) % Neutrophils # (1.3-7.7) k/uL Sodium (137-145) mmol/L Carbon Dioxide (22-30) mmol/L BUN (7-17) mg/dL Creatinine (0.52-1.04) mg/dL Glucose (74-99) mg/dL POC Glucose (mg/dL) 266 H (75-99) mg/dL Calcium (8.4-10.2) mg/dL Total Protein (6.3-8.2) g/dL Albumin (3.5-5.0) g/dL Crossmatch Microbiology - Last 24 Hours (Table) 04/20/18 12:56 Gram Stain - Preliminary Face Wound Culture - Preliminary 04/19/18 20:01 Gram Stain - Preliminary Face Wound Culture - Preliminary Presumptive MRSA 04/19/18 17:20 Blood Culture - Preliminary Blood No Growth after 24 hours Assessment and Plan Assessment: Acute hyperosmolar ketotic diabetic state. Uncontrolled type 2 diabetes mellitus with hyperglycemia facial cellulitis, sepsis. Present on admission Anemia, rule out GI bleed versus other History of low vitamin D Mild hyponatremia, corrected for hyperglycemia Dehydration Chronic kidney disease, stage III, with some elements of acute kidney injury Elevated troponin History of asthma GERD Essential hypertension Hyperlipidemia History of migraine History of atrial fibrillation Obesity with body mass index of 43.1 Plan: We recommend to continue with the same medication. Continue with symptomatic treatment. Resume home medication. Resume insulin and monitor her sugar level. Continue with antibiotics. Pulmonary/critical care consult is appreciated. pump machine operator team evalauted pt for elevated troponin , ID are called for left facial cellulitis GI and DVT prophylaxis. Further recommendation the clinical course of the patient.Prognosis is guarded
[2018-04-21 21:53] LABS: Glucose,Whole Blood 81 mg/dL (75-99)
[2018-04-21 22:42] LABS: Glucose,Whole Blood 73 mg/dL (75-99)
[2018-04-21 23:02] LABS: Iron Saturation 9.58 (12.00-45.00)
--- NOTE | 2018-04-21 23:19 | PN ---
PROGRESS NOTE DATE OF SERVICE: 04/21/2018. REASON FOR FOLLOWUP: Facial abscess and cellulitis, MRSA. INTERVAL HISTORY: The patient is currently afebrile. The facial area of swelling and redness has decreased with drainage from the the left cheek area. Denies having any chest pain, shortness of breath or cough. No abdominal pain, no diarrhea. EXAMINATION: Blood pressure 123/73 with a pulse of 73, temperature 98.2, she is 97% on room air. GENERAL DESCRIPTION: An elderly female lying in bed in no distress. HEENT: Shows a deficient area. Swelling and redness are decreased. LUNGS: Unlabored breathing. Clear to auscultation anteriorly. HEART: S1, S2. Regular rate and rhythm. ABDOMEN: Soft, no tenderness. LABS: Hemoglobin 7, white count of 10.8. BUN of 16, creatinine 2.0. DIAGNOSTIC IMPRESSION AND PLAN: Patient with left facial as well as chin abscess. Did have some spontaneous drainage. Culture with the MRSA. Patient currently covered with vancomycin, pharmacy to dose. Will be continued while watching the kidney function very closely. Continue with supportive care. MMODL / IJN: [id number] /
[2018-04-21 23:21] LABS: Folate, Serum 8.6 ng/mL
[2018-04-22 02:33] LABS: Glucose,Whole Blood 105 mg/dL (75-99)
[2018-04-22 05:51] LABS: Hemoglobin A1C 9.3
[2018-04-22] MEDS ORDERED: VANCOMYCIN 1,750 MG in SODIUM CHLORIDE 0.9% 500 ML 500 ML IVPB ONE (06:00)
[2018-04-22] MEDS: ACETAMINOPHEN TAB 500 MG TAB PO PRN ×2 (06:17→16:06)
--- NOTE | 2018-04-22 07:00 | XR ---
EXAMINATION TYPE: XR chest 1V DATE OF EXAM: 04/22/2018 HISTORY: copd exac. REFERENCE: Previous study dated 04/21/2018. FINDINGS: Heart size upper limits of normal. The lungs are clear. Pleural spaces are clear. IMPRESSION: BORDERLINE CARDIOMEGALY.
[2018-04-22 07:20] LABS: Glucose,Whole Blood 126 mg/dL (75-99)
[2018-04-22 07:24] LABS: Anisocytosis Slight; Basophils # (A) 0.1 k/uL (0-0.2); Basophils % (A) 0 %; Eosinophils # (A) 0.3 k/uL (0-0.7); Eosinophils % (A) 3 %; HGB 7.9 gm/dL (11.4-16.0); Lymphocytes # (A) 1.1 k/uL (1.0-4.8); Lymphocytes % (A) 10 %; MCH 30.2 pg (25.0-35.0); MCHC 34.3 g/dL (31.0-37.0); Mean Platelet Volume 6.8; Monocytes # (A) 0.5 k/uL (0-1.0); Monocytes % (A) 4 %; Neutrophils # (A) 9.5 k/uL (1.3-7.7); Neutrophils % (A) 82 %; Platelet Count 208 k/uL (150-450); RBC 2.61 m/uL (3.80-5.40); WBC 11.6 k/uL (3.8-10.6)
[2018-04-22 07:34] LABS: Albumin 2.8 g/dL (3.5-5.0); Calcium 8.8 mg/dL (8.4-10.2); Magnesium 2.1 mg/dL (1.6-2.3); Phosphorus 3.1 mg/dL (2.5-4.5); Potassium 4.6 mmol/L (3.5-5.1); Total Bilirubin 0.3 mg/dL (0.2-1.3); Total Protein 5.8 g/dL (6.3-8.2)
[2018-04-22] MEDS: IPRATROPIUM-ALBUTEROL 3 ML NEB INHALATION SCH ×4 (07:45→19:37)
[2018-04-22] MEDS: SYMBICORT 160-4.5 MCG INHALER INHALATION SCH (07:45)
--- NOTE | 2018-04-22 08:33 | P.PN ---
Subjective Progress Note Date: 04/22/18 This is a pleasant 53-year-old female patient with a past medical history significant for diabetes on insulin, hypertension, dyslipidemia, and chronic kidney disease as well as obesity who was admitted to the hospital with hyperosmolar hyperglycemic state with sepsis secondary to cellulitis and abscess in her face. We get involved in the care of the patient because the cardiac enzymes were checked and came in to be slightly elevated and not consistent with acute myocardial infarction. The patient is not aware of any history of coronary artery disease and never seen any medical corps officer in the past. More importantly she denies having any chest pain or chest discomfort, difficulty breathing, but she has been experiencing heart racing and fluttering. She has been hemodynamically stable. The EKG showed sinus rhythm with ST changes in the anterolateral leads. The cardiac enzymes are mildly elevated but below 1. We will continue considering conservative medical approach and medical treatment only in the absence of any chest pain or discomfort as well as low hemoglobin and elevated creatinine. Yesterday I did add aspirin. She is on Coreg we'll continue that. We'll consider adding statin down the line. An echocardiogram was ordered and we will follow-up on that. Objective - Vital Signs Vital signs: Vital Signs Temp 99.1 F 04/22/18 07:09 Pulse 81 04/22/18 07:59 Resp 16 04/22/18 06:03 BP 147/89 04/22/18 06:03 Pulse Ox 94 L 04/22/18 07:46 Intake & Output 04/21/18 04/22/18 04/22/18 18:59 06:59 18:59 Intake Total 2993.63 Output Total 510 985 Balance 2483.63 -985 Intake: IV 1200 D5-0.45% NaCl with KCl 1200 20Meq/l 1,000 ml @ 50 mls /hr IV .Q20H [facility] Rx#: [id number] Intake, IV Titration 13.63 Amount Insulin Regular 100 unit 13.63 In Sodium Chloride 0.9% 100 ml @ 0.1 UNITS/KG/HR 10.99 mls/hr IV .Q9H12M [facility] Rx#:[id number] Oral 1780 Output: Urine 510 700 Post Void Residual 285 Other: Voiding Method Indwelling Catheter # Voids 1 - Constitutional General appearance: Present: no acute distress - Respiratory Respiratory: bilateral: CTA - Cardiovascular Rhythm: regular Heart sounds: normal: S1, S2 Abnormal Heart Sounds: Present: systolic murmur - Labs CBC & Chem 7: 04/22/18 06:57 04/22/18 06:57 Labs: Abnormal Lab Results - Last 24 Hours (Table) 04/21/18 04/21/18 04/21/18 Range/Units 05:00 09:09 10:14 WBC (3.8-10.6) k/uL RBC (3.80-5.40) m/uL Hgb (11.4-16.0) gm/dL Hct (34.0-46.0) % RDW (11.5-15.5) % Neutrophils # (1.3-7.7) k/uL Sodium (137-145) mmol/L Carbon Dioxide (22-30) mmol/L BUN (7-17) mg/dL Creatinine (0.52-1.04) mg/dL Glucose (74-99) mg/dL POC Glucose (mg/dL) 292 H 291 H (75-99) mg/dL Iron 25 L (50-170) ug/dL Iron Saturation 9.58 L (12.00-45.00) Total Protein (6.3-8.2) g/dL Albumin (3.5-5.0) g/dL 04/21/18 04/21/18 04/21/18 Range/Units 12:08 14:35 16:30 WBC (3.8-10.6) k/uL RBC (3.80-5.40) m/uL Hgb (11.4-16.0) gm/dL Hct (34.0-46.0) % RDW (11.5-15.5) % Neutrophils # (1.3-7.7) k/uL Sodium (137-145) mmol/L Carbon Dioxide (22-30) mmol/L BUN (7-17) mg/dL Creatinine (0.52-1.04) mg/dL Glucose (74-99) mg/dL POC Glucose (mg/dL) 266 H 198 H 113 H (75-99) mg/dL Iron (50-170) ug/dL Iron Saturation (12.00-45.00) Total Protein (6.3-8.2) g/dL Albumin (3.5-5.0) g/dL 10/13/18 10/13/18 10/13/18 Range/Units 20:48 21:09 22:41 WBC (3.8-10.6) k/uL RBC (3.80-5.40) m/uL Hgb (11.4-16.0) gm/dL Hct (34.0-46.0) % RDW (11.5-15.5) % Neutrophils # (1.3-7.7) k/uL Sodium (137-145) mmol/L Carbon Dioxide (22-30) mmol/L BUN (7-17) mg/dL Creatinine (0.52-1.04) mg/dL Glucose (74-99) mg/dL POC Glucose (mg/dL) 57 L 46 L 73 L (75-99) mg/dL Iron (50-170) ug/dL Iron Saturation (12.00-45.00) Total Protein (6.3-8.2) g/dL Albumin (3.5-5.0) g/dL 04/22/18 04/22/18 04/22/18 Range/Units 02:21 06:52 06:57 WBC 11.6 H (3.8-10.6) k/uL RBC 2.61 L (3.80-5.40) m/uL Hgb 7.9 L (11.4-16.0) gm/dL Hct 23.0 L (34.0-46.0) % RDW 16.0 H (11.5-15.5) % Neutrophils # 9.5 H (1.3-7.7) k/uL Sodium (137-145) mmol/L Carbon Dioxide (22-30) mmol/L BUN (7-17) mg/dL Creatinine (0.52-1.04) mg/dL Glucose (74-99) mg/dL POC Glucose (mg/dL) 105 H 126 H (75-99) mg/dL Iron (50-170) ug/dL Iron Saturation (12.00-45.00) Total Protein (6.3-8.2) g/dL Albumin (3.5-5.0) g/dL 04/22/18 Range/Units 06:57 WBC (3.8-10.6) k/uL RBC (3.80-5.40) m/uL Hgb (11.4-16.0) gm/dL Hct (34.0-46.0) % RDW (11.5-15.5) % Neutrophils # (1.3-7.7) k/uL Sodium 135 L (137-145) mmol/L Carbon Dioxide 16 L (22-30) mmol/L BUN 59 H (7-17) mg/dL Creatinine 2.43 H (0.52-1.04) mg/dL Glucose 130 H (74-99) mg/dL POC Glucose (mg/dL) (75-99) mg/dL Iron (50-170) ug/dL Iron Saturation (12.00-45.00) Total Protein 5.8 L (6.3-8.2) g/dL Albumin 2.8 L (3.5-5.0) g/dL Microbiology - Last 24 Hours (Table) 04/19/18 17:20 Blood Culture - Preliminary Blood No Growth after 48 hours 04/20/18 12:56 Gram Stain - Preliminary Face Wound Culture - Preliminary Presumptive MRSA 04/19/18 20:01 Gram Stain - Final Face Wound Culture - Final Methicillin resist S. aureus Assessment and Plan Assessment: Assessment #1 hyperosmolar hyperglycemic state #2 dental/face abscess #3 anemia #4 chronic kidney disease #5 diabetes on insulin #6 multiple comorbid conditions Plan #1 consider conservative medical approach at this point of time #2 continue the aspirin and Coreg #3 follow-up on the echocardiogram #4 follow-up with the patient Thank you for allowing us participate in her care and we will continue following up with the patient
[2018-04-22] MEDS: INSULIN ASPART 100 UNIT/ML 1 ML 10 ML VIAL SQ SCH ×6 (09:07→21:06)
[2018-04-22] MEDS: PANTOPRAZOLE 40 MG/10 ML VIAL IV SCH ×2 (09:07→21:00)
[2018-04-22] MEDS: N PO SCH (09:08)
[2018-04-22] MEDS: cloNIDine HCL 0.1 MG TAB PO SCH ×3 (09:08→21:00)
[2018-04-22] MEDS: LORATADINE 10 MG TAB PO SCH (09:08)
[2018-04-22] MEDS: GABAPENTIN 300 MG CAP PO SCH ×3 (09:08→21:00)
[2018-04-22] MEDS: amLODIPine 10 MG TAB PO SCH (09:08)
[2018-04-22] MEDS: CARVEDILOL 12.5 MG TAB PO SCH ×2 (09:08→18:17)
[2018-04-22] MEDS: ASPIRIN 81 MG PO SCH (09:08)
[2018-04-22] MEDS: ERYTHROMYCIN 5 MG/GM OPHTH OINT 3.5 GM TUBE RIGHT EYE SCH ×4 (09:09→21:01)
[2018-04-22] MEDS: ENOXAPARIN 30 MG/0.3 ML SYRINGE SQ SCH (09:09)
[2018-04-22] MEDS ORDERED: DEXTROSE 50%-WATER 50 ML SYRINGE IVP PRN (09:18)
--- NOTE | 2018-04-22 09:25 | ECHOF ---
Referral Reason:elevated troponins MEASUREMENTS -------- HEIGHT: 157.5 cm WEIGHT: 115.7 kg BP: 102/63 RVIDd: 3.0 cm (< 3.3) IVSd: 1.6 cm (0.6 - 1.1) LVIDd: 4.6 cm (3.9 - 5.3) LVPWd: 1.6 cm (0.6 - 1.1) IVSs: 2.0 cm LVIDs: 2.8 cm LVPWs: 2.0 cm LA Diam: 4.4 cm (2.7 - 3.8) Ao Diam: 3.1 cm (2.0 - 3.7) AV Cusp: 1.6 cm (1.5 - 2.6) LA Diam: 3.9 cm (2.7 - 3.8) EPSS: 0.4 cm MV E Jeet: 0.78 m/s MV DecT: 335 ms MV A Jeet: 1.05 m/s MV E/A Ratio: 0.74 AV maxP.88 mmHg AV meanP.17 mmHg RAP: 5.00 mmHg RVSP: 31.55 mmHg MV EF SLOPE: 40.30 mm/s (70 - 150) MV EXCURSION: 1.56 cm (> 18.000) FINDINGS -------- Sinus rhythm. This was a technically difficult study with suboptimal views. The left ventricular size is normal. There is moderate concentric left ventricular hypertrophy. O verall left ventricular systolic function is normal with, an EF between 55 - 60 %. The right ventricle is normal in size and function. The left atrium is moderately dilated. The right atrium is normal in size. 3 ml of Lumason was utilized for enhancement of images. There is mild aortic valve sclerosis. There is no evidence of aortic regurgitation. There is no e vidence of aortic stenosis. Mild mitral annular calcification present. There is trace to mild mitral regurgitation. Mild tricuspid regurgitation present. Right ventricular systolic pressure is normal at < 35 mmHg. There is no evidence of pulmonary hypertension. Trace/mild (physiologic) pulmonic regurgitation. The aortic root size is normal. Normal inferior vena cava with normal inspiratory collapse consistent with estimated right atrial pre ssure of 5 mmHg. There is no pericardial effusion. CONCLUSIONS -------- 1. Sinus rhythm. 2. This was a technically difficult study with suboptimal views. 3. The left ventricular size is normal. 4. There is moderate concentric left ventricular hypertrophy. 5. Overall left ventricular systolic function is normal with, an EF between 55 - 60 %. 6. The left atrium is moderately dilated. 7. 3 ml of Lumason was utilized for enhancement of images. 8. There is mild aortic valve sclerosis. 9. Mild mitral annular calcification present. 10. There is trace to mild mitral regurgitation. 11. Mild tricuspid regurgitation present. 12. Right ventricular systolic pressure is normal at < 35 mmHg. 13. There is no evidence of pulmonary hypertension. 14. Trace/mild (physiologic) pulmonic regurgitation. 15. The aortic root size is normal. 16. There is no pericardial effusion. COOKY PACKER: Ramírez Kaplan RDCS
[2018-04-22 09:52] LABS: Glucose,Whole Blood 210 mg/dL (75-99)
[2018-04-22 11:46] LABS: Glucose,Whole Blood 136 mg/dL (75-99)
--- NOTE | 2018-04-22 12:42 | P.NPCON ---
History of Present Illness - Reason for Consult Consult date: 04/22/18 chronic renal failure - Chief Complaint Facial abscesses with chronic kidney disease - History of Present Illness This is a 53-year-old female seen in consultation because of chronic kidney disease and an element of possible acute kidney injury. She was admitted with abscesses in her face after having undergone some dental procedures, she also had lactic acidosis, lactic acid was 4.4, 6.6 at the time of admission blood sugars were 1129. Beta hydroxybutyrate right is not available. Her anion gap of the time of admission was 19. She remains febrile. Her abscesses are draining out of her facial abscesses in 3 places. She is known with chronic kidney disease Baseline creatinine is wearing between 1.8-2.2, she has 1+ proteinuria. She is under care of Dr. Dallas. No nausea vomiting diarrhea abdominal pain. No headache. No changes in her vision. No dysuria frequency. Appetite is fair She is known with diabetes for about 10 years, with laser treatment and neuropathy with gait difficulty. No history of heart attack strokes. She is obese and has history of asthma and migraine. 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 Smoking Status: Never smoker Past Alcohol Use History: Rare Past Drug Use History: None Reported - Past Family History Father Family Medical History: Cancer Additional Family Medical History / Comment(s): cancerous polyp Mother Family Medical History: Hypertension Additional Family Medical History / Comment(s): irreg heart beat, [place] dm Medications and Allergies Home Medications Medication Instructions Recorded Confirmed Type Albuterol Sulfate [Proair Hfa] 2 puff INHALATION RT-Q4H PRN 02/25/17 04/19/18 History Citalopram Hydrobromide [CeleXA] 40 mg PO DAILY 02/25/17 04/19/18 History Gabapentin 600 mg PO TID 02/25/17 04/19/18 History Insulin Aspart Protam & Aspart 25 unit SQ AC-SUPPER 02/25/17 04/19/18 History [NovoLOG MIX 70-30 Flexpen] Insulin Aspart Protam & Aspart 35 unit SQ AC-BRKFST 02/25/17 04/19/18 History [NovoLOG MIX 70-30 Flexpen] amLODIPine [Norvasc] 10 mg PO DAILY 02/25/17 04/19/18 History Fluticasone Nasal [place] [Flonase 1 - 2 spray EA NOSTRIL HS PRN 08/15/17 History Nasal [place]] Albuterol Nebulized [Ventolin 2.5 mg INHALATION RT-QID PRN 11/14/17 04/19/18 History Nebulized] Budesonide/Formoterol Fumarate 2 puff INHALATION RT-DAILY 11/14/17 04/19/18 History [Symbicort 160-4.5 Mcg Inhaler] Cetirizine HCl [Zyrtec] 10 mg PO DAILY 11/14/17 04/19/18 History Gemfibrozil [Lopid] 600 mg PO BID 11/14/17 04/19/18 History Pantoprazole [Protonix] 40 mg PO DAILY 11/14/17 04/19/18 History Zolpidem [Ambien] 10 mg PO HS PRN 11/14/17 04/19/18 History Chlorthalidone [Hygroton] 25 mg PO DAILY #30 tab 11/20/17 04/19/18 Rx cloNIDine HCL [Catapres] 0.2 mg PO TID #90 tab 11/20/17 04/19/18 Rx Carvedilol [Coreg*] 25 mg PO BID 12/29/17 04/19/18 History Ranitidine HCl [Zantac] 150 mg PO BID 12/29/17 04/19/18 History Sodium Bicarbonate Tab 650 mg PO MO 12/29/17 04/19/18 History Clindamycin HCl 300 mg PO Q6H #40 cap 04/15/18 04/19/18 Rx Erythromycin Ophth Oint [Romycin 1 applic RIGHT EYE QID 7 Days gm 04/15/1805/27 Rx Ophth Oint] Mupirocin 2% Oint [Bactroban Oint] 1 applic TOPICAL TID #1 gm 04/15/18 04/19/18 Rx Ibuprofen [Motrin Ib] 200 mg PO TID PRN 04/19/18 04/19/18 History Allergies Allergy/AdvReac Type Severity Reaction Status Date / Time adhesive tape Allergy Itching/swe Verified 04/19/18 17:34 lling hydrocodone [From [place]] Allergy Hallucinati Verified 04/19/18 17:34 ons/vomitin g measles, mumps, and rubella Allergy Rash/Hives Verified 04/19/18 17:34 vaccine Penicillins Allergy Anaphylaxis Verified 04/19/18 17:34 Sulfa (Sulfonamide Allergy Anaphylaxis Verified 04/19/18 17:34 Antibiotics) Physical Exam Vitals: Vital Signs Temp Pulse Pulse Resp BP BP Pulse Ox 04/22/18 07:59 81 04/22/18 07:46 78 94 L 04/22/18 07:09 99.1 F 04/22/18 06:03 101.2 F H 88 16 147/89 92 L 04/21/18 23:00 99.4 F 80 18 128/56 96 04/21/18 19:52 80 04/21/18 19:41 78 94 L 04/21/18 15:59 98.2 F 76 16 123/73 97 04/21/18 15:35 77 04/21/18 15:33 74 04/21/18 13:00 72 22 103/52 97 Intake and Output 04/21/18 04/22/18 04/22/18 22:59 06:59 14:59 Intake Total 1500 Output Total 385 700 Balance 1115 -700 Intake: IV 100 D5-0.45% NaCl with KCl 100 20Meq/l 1,000 ml @ 50 mls /hr IV .Q20H [facility] Rx#: [id number] Oral 1400 Output: Urine 100 700 Post Void Residual 285 Other: # Voids 0 1 On examination she is slightly obese female not in any distress. Awake alert. HEENT exam shows drainage of purulent material coming out of her facial abscess on the lower jaw on the right, on the left side of the face on 2 places. No JVP lymphadenopathy thyromegaly supple no facial asymmetry Lungs are clear to auscultation percussion good air entry bilaterally. His crackles. Heart sounds unremarkable for any murmur rub gallop Abdomen is protuberant and obese but nontender no masses felt no ascites noted Extremity exam was trace edema. Neurologically awake alert oriented but complains of diminished sensation in her lower legs. She also says that her gait is difficult because she can't feel her feet very well Results - Lab Results Most recent lab results Calcium 8.8 mg/dL (8.4-10.2) 04/22/18 06:57 Phosphorus 3.1 mg/dL (2.5-4.5) 04/22/18 06:57 Magnesium 2.1 mg/dL (1.6-2.3) 04/22/18 06:57 04/22/18 06:57 04/22/18 06:57 Assessment and Plan Assessment: Impression 1. Chronic kidney disease, likely diabetic nephropathy as well as nephrosclerosis. 1+ proteinuria on urinalysis on this admission. Baseline creatinine over the last 1 year is ranging between 1.6 at its best to 2.4. 2. Admission creatinine was 2.32 and scar up to 2.43 possible element of acute kidney injury. She is on vancomycin and trough level is slightly high at 24 as of yesterday. 3. Facial abscesses need drainage, on antibiotics growing MRSA. 4. Anemia of chronic illness hemoglobin 7.9, rule out an deficiency 5. Admission sodium of 118 reflects high blood sugar and corrected for a blood sugar of 1129, is 132. Current sodium is back to normal at 135. 6. Gap and non-gap acidosis currently bicarb is 16 anion gap is 13, which is at baseline. Therefore this is purely non-gap acidosis currently from loss of bicarbonate in the urine because of hyperglycemia and ketoacidosis likely at the time of admission which has now been corrected. 7. Diabetic neuropathy with gait difficulty #8 obesity Recommendation. 1. If possible discontinue vancomycin and use other non-nephrotoxic antibiotics. 2. Maintain hydration status with normal saline at about 60 mL an hour. 3. Maintain blood pressure between 120 to 1:30 approximate. 4. Agree with sodium bicarb orally 650 but I'll increase the dose to 3 times a day. 5. Will monitor labs. 6. Surgical assessment regarding I and D of abscess Thank you for this consultation and we'll continue to follow closely
[2018-04-22] MEDS: SODIUM CHLORIDE 0.9% 1,000 ML IV SCH (13:05)
[2018-04-22] MEDS: HYDROmorphone 1 MG/ML 1 ML SYRINGE IVP PRN ×3 (13:39→21:06)
--- NOTE | 2018-04-22 13:46 | P.GSCN ---
History of Present Illness Consult date: 04/22/18 Reason for Consult: Facial abscesses with associated facial cellulitis Requesting physician: Bayron Iglesias History of present illness: This is a 53-year-old obese diabetic female who has developed multiple facial abscesses with associated facial cellulitis. Her problems started about 10 days ago was placed on Cipro but unfortunately her problems persisted. I've been asked to consult regarding her multiple abscesses that are somewhat partially draining. She has one located on the left cheek 2 on the right chin and one under the left mandible. They're tender and swollen. There is a large amount of crusting over these areas. She has pain pressure and fullness to these areas. She does not appear to be progressing on the vancomycin that has been prescribed. Review of Systems - Constitutional Reports anorexia, Reports fatigue, Reports lethargy - EENT Ears, nose, mouth and throat: Denies bleeding gums - Cardiovascular Denies chest pain - Respiratory Denies cough - Gastrointestinal Denies bloating - Genitourinary Genitourinary: Denies nocturia Menstruation: Reports as per HPI - Musculoskeletal Denies fractures - Integumentary Reports boils - Neurological Denies aphasia, Denies change in speech - Psychiatric Denies anxiety attacks - Endocrine Denies excessive sweating - Hematologic/Lymphatic Denies easy bleeding - Allergic/Immunologic Denies anaphylaxis 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 Smoking Status: Never smoker Past Alcohol Use History: Rare Past Drug Use History: None Reported - Past Family History Father Family Medical History: Cancer Additional Family Medical History / Comment(s): cancerous polyp Mother Family Medical History: Hypertension Additional Family Medical History / Comment(s): irreg heart beat, [place] dm Medications and Allergies Home Medications Medication Instructions Recorded Confirmed Type Albuterol Sulfate [Proair Hfa] 2 puff INHALATION RT-Q4H PRN 02/25/17 04/19/18 History Citalopram Hydrobromide [CeleXA] 40 mg PO DAILY 02/25/17 04/19/18 History Gabapentin 600 mg PO TID 02/25/17 04/19/18 History Insulin Aspart Protam & Aspart 25 unit SQ AC-SUPPER 02/25/17 04/19/18 History [NovoLOG MIX 70-30 Flexpen] Insulin Aspart Protam & Aspart 35 unit SQ AC-BRKFST 02/25/17 04/19/18 History [NovoLOG MIX 70-30 Flexpen] amLODIPine [Norvasc] 10 mg PO DAILY 02/25/17 04/19/18 History Fluticasone Nasal [place] [Flonase 1 - 2 spray EA NOSTRIL HS PRN 08/15/17 History Nasal [place]] Albuterol Nebulized [Ventolin 2.5 mg INHALATION RT-QID PRN 11/14/17 04/19/18 History Nebulized] Budesonide/Formoterol Fumarate 2 puff INHALATION RT-DAILY 11/14/17 04/19/18 History [Symbicort 160-4.5 Mcg Inhaler] Cetirizine HCl [Zyrtec] 10 mg PO DAILY 11/14/17 04/19/18 History Gemfibrozil [Lopid] 600 mg PO BID 11/14/17 04/19/18 History Pantoprazole [Protonix] 40 mg PO DAILY 11/14/17 04/19/18 History Zolpidem [Ambien] 10 mg PO HS PRN 11/14/17 04/19/18 History Chlorthalidone [Hygroton] 25 mg PO DAILY #30 tab 11/20/17 04/19/18 Rx cloNIDine HCL [Catapres] 0.2 mg PO TID #90 tab 11/20/17 04/19/18 Rx Carvedilol [Coreg*] 25 mg PO BID 12/29/17 04/19/18 History Ranitidine HCl [Zantac] 150 mg PO BID 12/29/17 04/19/18 History Sodium Bicarbonate Tab 650 mg PO MO 12/29/17 04/19/18 History Clindamycin HCl 300 mg PO Q6H #40 cap 04/15/18 04/19/18 Rx Erythromycin Ophth Oint [Romycin 1 applic RIGHT EYE QID 7 Days gm 04/15/1805/27 Rx Ophth Oint] Mupirocin 2% Oint [Bactroban Oint] 1 applic TOPICAL TID #1 gm 04/15/18 04/19/18 Rx Ibuprofen [Motrin Ib] 200 mg PO TID PRN 04/19/18 04/19/18 History Allergies Allergy/AdvReac Type Severity Reaction Status Date / Time adhesive tape Allergy Itching/swe Verified 04/19/18 17:34 lling hydrocodone [From [place]] Allergy Hallucinati Verified 04/19/18 17:34 ons/vomitin g measles, mumps, and rubella Allergy Rash/Hives Verified 04/19/18 17:34 vaccine Penicillins Allergy Anaphylaxis Verified 04/19/18 17:34 Sulfa (Sulfonamide Allergy Anaphylaxis Verified 04/19/18 17:34 Antibiotics) Surgical - Exam Osteopathic Statement: *. No significant issues noted on an osteopathic structural exam other than those noted in the History and Physical/Consult. Vital Signs Temp Pulse Resp BP Pulse Ox 98.6 F 14 L 18 128/70 98 04/19/18 16:50 04/19/18 16:50 04/19/18 16:50 04/19/18 16:50 04/19/18 16:50 - General well developed, well nourished, no distress, obese - Eyes PERRL, normal ocular movement - ENT Head is normocephalic the face is symmetric but there is multiple abscesses noted one on the left cheek one of the left mandible to of the right chin. These are draining purulence. Quite tender and swollen and erythematous. Ears auricles well-formed canals are clear nose is patent mouth and throat poor dental care no oral lesions are noted neck is unremarkable normal pinna, normal nares, normal mucosa, poor [facility] - Neck no masses Results - Labs 04/22/18 06:57 04/22/18 06:57 Abnormal Lab Results - Last 24 Hours (Table) 04/21/18 04/21/18 04/21/18 Range/Units 05:00 14:35 16:30 WBC (3.8-10.6) k/uL RBC (3.80-5.40) m/uL Hgb (11.4-16.0) gm/dL Hct (34.0-46.0) % RDW (11.5-15.5) % Neutrophils # (1.3-7.7) k/uL Sodium (137-145) mmol/L Carbon Dioxide (22-30) mmol/L BUN (7-17) mg/dL Creatinine (0.52-1.04) mg/dL Glucose (74-99) mg/dL POC Glucose (mg/dL) 198 H 113 H (75-99) mg/dL Iron 25 L (50-170) ug/dL Iron Saturation 9.58 L (12.00-45.00) Total Protein (6.3-8.2) g/dL Albumin (3.5-5.0) g/dL 04/21/18 04/21/18 04/21/18 Range/Units 20:48 21:09 22:41 WBC (3.8-10.6) k/uL RBC (3.80-5.40) m/uL Hgb (11.4-16.0) gm/dL Hct (34.0-46.0) % RDW (11.5-15.5) % Neutrophils # (1.3-7.7) k/uL Sodium (137-145) mmol/L Carbon Dioxide (22-30) mmol/L BUN (7-17) mg/dL Creatinine (0.52-1.04) mg/dL Glucose (74-99) mg/dL POC Glucose (mg/dL) 57 L 46 L 73 L (75-99) mg/dL Iron (50-170) ug/dL Iron Saturation (12.00-45.00) Total Protein (6.3-8.2) g/dL Albumin (3.5-5.0) g/dL 04/22/18 04/22/18 04/22/18 Range/Units 02:21 06:52 06:57 WBC 11.6 H (3.8-10.6) k/uL RBC 2.61 L (3.80-5.40) m/uL Hgb 7.9 L (11.4-16.0) gm/dL Hct 23.0 L (34.0-46.0) % RDW 16.0 H (11.5-15.5) % Neutrophils # 9.5 H (1.3-7.7) k/uL Sodium (137-145) mmol/L Carbon Dioxide (22-30) mmol/L BUN (7-17) mg/dL Creatinine (0.52-1.04) mg/dL Glucose (74-99) mg/dL POC Glucose (mg/dL) 105 H 126 H (75-99) mg/dL Iron (50-170) ug/dL Iron Saturation (12.00-45.00) Total Protein (6.3-8.2) g/dL Albumin (3.5-5.0) g/dL 04/22/18 04/22/18 04/22/18 Range/Units 06:57 09:27 11:30 WBC (3.8-10.6) k/uL RBC (3.80-5.40) m/uL Hgb (11.4-16.0) gm/dL Hct (34.0-46.0) % RDW (11.5-15.5) % Neutrophils # (1.3-7.7) k/uL Sodium 135 L (137-145) mmol/L Carbon Dioxide 16 L (22-30) mmol/L BUN 59 H (7-17) mg/dL Creatinine 2.43 H (0.52-1.04) mg/dL Glucose 130 H (74-99) mg/dL POC Glucose (mg/dL) 210 H 136 H (75-99) mg/dL Iron (50-170) ug/dL Iron Saturation (12.00-45.00) Total Protein 5.8 L (6.3-8.2) g/dL Albumin 2.8 L (3.5-5.0) g/dL Microbiology - Last 24 Hours (Table) 04/20/18 12:56 Gram Stain - Preliminary Face Wound Culture - Preliminary Presumptive MRSA 04/19/18 20:01 Gram Stain - Final Face Wound Culture - Final Methicillin resist S. aureus 04/19/18 17:20 Blood Culture - Preliminary Blood No Growth after 48 hours Diabetes panel 04/19/18 04/22/18 Range/Units 17:20 06:57 Sodium 135 L (137-145) mmol/L Potassium 4.6 (3.5-5.1) mmol/L Chloride 107 (98-107) mmol/L Carbon Dioxide 16 L (22-30) mmol/L BUN 59 H (7-17) mg/dL Creatinine 2.43 H (0.52-1.04) mg/dL Glucose 130 H (74-99) mg/dL Hemoglobin A1c 9.3 Calcium 8.8 (8.4-10.2) mg/dL AST 20 (14-36) U/L ALT 20 (9-52) U/L Alkaline Phosphatase 60 (38-126) U/L Total Protein 5.8 L (6.3-8.2) g/dL Albumin 2.8 L (3.5-5.0) g/dL Calcium panel 04/22/18 Range/Units 06:57 Calcium 8.8 (8.4-10.2) mg/dL Phosphorus 3.1 (2.5-4.5) mg/dL Albumin 2.8 L (3.5-5.0) g/dL Pituitary panel 04/22/18 Range/Units 06:57 Sodium 135 L (137-145) mmol/L Potassium 4.6 (3.5-5.1) mmol/L Chloride 107 (98-107) mmol/L Carbon Dioxide 16 L (22-30) mmol/L BUN 59 H (7-17) mg/dL Creatinine 2.43 H (0.52-1.04) mg/dL Glucose 130 H (74-99) mg/dL Calcium 8.8 (8.4-10.2) mg/dL Adrenal panel 04/22/18 Range/Units 06:57 Sodium 135 L (137-145) mmol/L Potassium 4.6 (3.5-5.1) mmol/L Chloride 107 (98-107) mmol/L Carbon Dioxide 16 L (22-30) mmol/L BUN 59 H (7-17) mg/dL Creatinine 2.43 H (0.52-1.04) mg/dL Glucose 130 H (74-99) mg/dL Calcium 8.8 (8.4-10.2) mg/dL Total Bilirubin 0.3 (0.2-1.3) mg/dL AST 20 (14-36) U/L ALT 20 (9-52) U/L Alkaline Phosphatase 60 (38-126) U/L Total Protein 5.8 L (6.3-8.2) g/dL Albumin 2.8 L (3.5-5.0) g/dL Assessment and Plan (1) Cellulitis and abscess of face Current Visit: Yes Status: Acute Code(s): L03.211 - CELLULITIS OF FACE; L02.01 - CUTANEOUS ABSCESS OF FACE SNOMED Code(s): 933403582 (2) Obesity Current Visit: Yes Status: Acute Code(s): E66.9 - OBESITY, UNSPECIFIED SNOMED Code(s): 104283014 Plan: This patient underwent for incision and drainages of 4 separate abscesses today. 2 of the right chin one of the left cheek and one of the left lower face. She tolerated this well and dressings were applied. I'm recommending the use of Bactroban. Oral Avelox would be another option but I will defer that recommendation to our infectious disease specialist. I understand that she is ALLERGIC to penicillin and sulfa and has MRSA. She also has poor kidney function. Again, her abscesses have been drained widely and I will defer to infectious disease for medical treatment. If I can be of any further service to you please do not hesitate to contact me. I will no longer be following this patient. Time with Patient: Greater than 30
--- NOTE | 2018-04-22 13:48 | P.OP ---
Date of Procedure: 04/22/18 Preoperative Diagnosis: Facial cellulitis with four facial abscesses Postoperative Diagnosis: Same Procedure(s) Performed: Incision and drainage of four facial abscesses Anesthesia: local Surgeon: Alex Gimenez Estimated Blood Loss (ml): 5 Pathology: none sent Condition: stable Disposition: no change Indications for Procedure: Patient had for facial abscesses that needed to be drained. She has not been progressing appropriately and has been cultured and was found have MRSA. She is ALLERGIC to penicillin and sulfa and has poor kidney function due to her diabetes. Operative Findings: For large facial abscesses left cheek, 2 on the right chin, one under the left mandible Description of Procedure: The face was sterilely prepped and draped in usual fashion these for abscesses were injected with lidocaine 1% with epinephrine 1 100,000 and 5 minutes were allowed wait for full vasoconstrictive effects to take place. With use of a 15 blade, incision and drainage were performed and widened with the use of a hemostat. Purulence was expressed and dressings were applied. The patient tolerated this well
--- NOTE | 2018-04-22 14:15 | P.PN ---
Subjective This is a pleasant 53 years old female who presents with left Side cheek abscess that is open and draining purulant discharge and failed outpatient treatment with hyperglycemia as high as 1129 on admission. With elevated troponin. Her sodium was low on admission as low as 118, but corrected for hyperglycemia it to be in mid 130s. Patient was treated with fluids and insulin drip. As well as antibiotic. pt today on 04/21 is telling me she started feeling better regarding her facial infection however there is still swelling ,redness and induration , pt is already on antiobiotic iv vancomycin , ID team is been consulted . her sugar is better controlled currently 07/23/2017 Patient spiked fever of 101.2. Left facial infection and discharge. Patient remains on antibiotics per ID team recommendation. We will call ENT for evaluation of her left facial infection. Patient is status post I and D for multiple superficial abscesses. Patient is not emptying well and she has low sugar episode yesterday. We will decrease her insulin to 10 units every morning and 5 units every afternoon. Creatinine is 2.4, nephrology team is been consulted and their input is appreciated. And the recommended to switch antibiotics alert and vancomycin. I explained risk of nephrotoxicity to the patient and she agrees to continue with it if it is indicated Patient with anemia, iron is low at 25, as well as iron saturation is low at 9.5. Check FOBT. Call GI consult, she is been evaluated before by Dr. Guerra for gastric ulcers. Start iron pills CONSTITUTIONAL: No fever, no malaise, no fatigue. HEENT: No recent visual problems or hearing problems. Denied any sore throat. CARDIOVASCULAR: No orthopnea, PND, no palpitations, no syncope. PULMONARY: No shortness of breath, no cough, no hemoptysis. GASTROINTESTINAL: No diarrhea, no nausea, no vomiting, no abdominal pain. Normoactive bowel sounds. NEUROLOGICAL: No headaches, no weakness, no numbness. HEMATOLOGICAL: Denies any bleeding or petechiae. GENITOURINARY: Denies any burning micturition, frequency, or urgency. MUSCULOSKELETAL/RHEUMATOLOGICAL: Denies any joint pain, swelling, or any muscle pain. ENDOCRINE: Denies any polyuria or polydipsia. Medication with dosages and reviewed including. Tylenol 1000 mg, dunobs 0.5-3 mg, Symbicort 162 4.5 g, Coreg 25 mg, Celexa 40 mg, Lovenox 30 mg, azithromycin ointment, Flonase nasal spray, Neurontin 600 mg, Dilaudid 1 mg, Claritin 10 mg, vancomycin as per pharmacy to dose, Protonix 40 mg, IV fluids at 50 mL per hour, sodium bicarb 650 mg, Restoril 50 mg, Objective - Vital Signs Vital signs: Vital Signs Temp 99.1 F 04/22/18 07:09 Pulse 81 04/22/18 07:59 Resp 16 04/22/18 06:03 BP 147/89 04/22/18 06:03 Pulse Ox 94 L 04/22/18 07:46 Intake & Output 04/21/18 04/22/18 04/22/18 18:59 06:59 18:59 Intake Total 2993.63 Output Total 510 985 Balance 2483.63 -985 Weight 106 kg Intake: IV 1200 D5-0.45% NaCl with KCl 1200 20Meq/l 1,000 ml @ 50 mls /hr IV .Q20H [facility] Rx#: [id number] Intake, IV Titration 13.63 Amount Insulin Regular 100 unit 13.63 In Sodium Chloride 0.9% 100 ml @ 0.1 UNITS/KG/HR 10.99 mls/hr IV .Q9H12M [facility] Rx#:[id number] Oral 1780 Output: Urine 510 700 Post Void Residual 285 Other: Voiding Method Indwelling Catheter # Voids 1 - Exam GENERAL: The patient is alert and oriented x3, not in any acute distress. Well developed, well nourished. -HEENT: Pupils are round and equally reacting to light. EOMI. No scleral icterus. No conjunctival pallor. Normocephalic, atraumatic. No pharyngeal erythema. No thyromegaly. left cheek infection which is opon and there is purulent discharge with small area of underlying induration , CARDIOVASCULAR: S1 and S2 present. No murmurs, rubs, or gallops. PULMONARY: Chest is clear to auscultation, no wheezing or crackles. ABDOMEN: Soft, nontender, nondistended, normoactive bowel sounds. No palpable organomegaly. MUSCULOSKELETAL: No joint swelling or deformity. EXTREMITIES: No cyanosis, clubbing, or pedal edema. NEUROLOGICAL: Gross neurological examination did not reveal any focal deficits. SKIN: No rashes. - Labs CBC & Chem 7: 04/22/18 06:57 04/22/18 06:57 Labs: Abnormal Lab Results - Last 24 Hours (Table) 04/21/18 04/21/18 04/21/18 Range/Units 05:00 14:35 16:30 WBC (3.8-10.6) k/uL RBC (3.80-5.40) m/uL Hgb (11.4-16.0) gm/dL Hct (34.0-46.0) % RDW (11.5-15.5) % Neutrophils # (1.3-7.7) k/uL Sodium (137-145) mmol/L Carbon Dioxide (22-30) mmol/L BUN (7-17) mg/dL Creatinine (0.52-1.04) mg/dL Glucose (74-99) mg/dL POC Glucose (mg/dL) 198 H 113 H (75-99) mg/dL Iron 25 L (50-170) ug/dL Iron Saturation 9.58 L (12.00-45.00) Total Protein (6.3-8.2) g/dL Albumin (3.5-5.0) g/dL 04/21/18 04/21/18 04/21/18 Range/Units 20:48 21:09 22:41 WBC (3.8-10.6) k/uL RBC (3.80-5.40) m/uL Hgb (11.4-16.0) gm/dL Hct (34.0-46.0) % RDW (11.5-15.5) % Neutrophils # (1.3-7.7) k/uL Sodium (137-145) mmol/L Carbon Dioxide (22-30) mmol/L BUN (7-17) mg/dL Creatinine (0.52-1.04) mg/dL Glucose (74-99) mg/dL POC Glucose (mg/dL) 57 L 46 L 73 L (75-99) mg/dL Iron (50-170) ug/dL Iron Saturation (12.00-45.00) Total Protein (6.3-8.2) g/dL Albumin (3.5-5.0) g/dL 04/22/18 04/22/18 04/22/18 Range/Units 02:21 06:52 06:57 WBC 11.6 H (3.8-10.6) k/uL RBC 2.61 L (3.80-5.40) m/uL Hgb 7.9 L (11.4-16.0) gm/dL Hct 23.0 L (34.0-46.0) % RDW 16.0 H (11.5-15.5) % Neutrophils # 9.5 H (1.3-7.7) k/uL Sodium (137-145) mmol/L Carbon Dioxide (22-30) mmol/L BUN (7-17) mg/dL Creatinine (0.52-1.04) mg/dL Glucose (74-99) mg/dL POC Glucose (mg/dL) 105 H 126 H (75-99) mg/dL Iron (50-170) ug/dL Iron Saturation (12.00-45.00) Total Protein (6.3-8.2) g/dL Albumin (3.5-5.0) g/dL 04/22/18 04/22/18 04/22/18 Range/Units 06:57 09:27 11:30 WBC (3.8-10.6) k/uL RBC (3.80-5.40) m/uL Hgb (11.4-16.0) gm/dL Hct (34.0-46.0) % RDW (11.5-15.5) % Neutrophils # (1.3-7.7) k/uL Sodium 135 L (137-145) mmol/L Carbon Dioxide 16 L (22-30) mmol/L BUN 59 H (7-17) mg/dL Creatinine 2.43 H (0.52-1.04) mg/dL Glucose 130 H (74-99) mg/dL POC Glucose (mg/dL) 210 H 136 H (75-99) mg/dL Iron (50-170) ug/dL Iron Saturation (12.00-45.00) Total Protein 5.8 L (6.3-8.2) g/dL Albumin 2.8 L (3.5-5.0) g/dL Microbiology - Last 24 Hours (Table) 04/20/18 12:56 Gram Stain - Preliminary Face Wound Culture - Preliminary Presumptive MRSA 04/19/18 20:01 Gram Stain - Final Face Wound Culture - Final Methicillin resist S. aureus 04/19/18 17:20 Blood Culture - Preliminary Blood No Growth after 48 hours Assessment and Plan Assessment: Acute hyperosmolar ketotic diabetic state. Risks problems Uncontrolled type 2 diabetes mellitus with hyperglycemia facial cellulitis, sepsis. Present on admission. Status post I and D for her facial abscesses Anemia, iron deficiency anemia History of gastric ulcer History of low vitamin D Mild hyponatremia, corrected for hyperglycemia Dehydration Chronic kidney disease, stage III, with some elements of acute kidney injury Elevated troponin History of asthma GERD Essential hypertension Hyperlipidemia History of migraine History of atrial fibrillation Obesity with body mass index of 43.1 Plan: We recommend to continue with the same medication. Continue with symptomatic treatment. Resume home medication. Resume insulin and monitor her sugar level. Continue with antibiotics. Pulmonary/critical care consult is appreciated. registered private duty nurse team evalauted pt for elevated troponin , ID are called for left facial cellulitis . Patient status post I and D for her facial abscesses by ENT specialist. We'll call GI consult for iron deficiency anemia. GI and DVT prophylaxis. Further recommendation the clinical course of the patient.Prognosis is guarded
[2018-04-22] MEDS: MUPIROCIN 2% OINT 22 GM TUBE TOPICAL SCH ×2 (15:59→21:01)
[2018-04-22] MEDS: SODIUM BICARBONATE TAB 650 MG TAB PO SCH ×2 (15:59→21:00)
[2018-04-22 17:20] LABS: Glucose,Whole Blood 231 mg/dL (75-99)
[2018-04-22] MEDS ORDERED: DAPTOmycin 500 MG in SODIUM CHLORIDE 0.9% 50 ML IVPB SCH (18:00)
[2018-04-22] MEDS: FERROUS SULFATE 325 MG TAB PO SCH (18:17)
[2018-04-22 20:42] LABS: Glucose,Whole Blood 236 mg/dL (75-99)
--- NOTE | 2018-04-23 00:35 | PN ---
PROGRESS NOTE DATE OF SERVICE: 04/22/2018. REASON FOR FOLLOWUP VISIT: MRSA facial abscess and cellulitis. INTERVAL HISTORY: The patient is currently afebrile. Overall drainage from the left cheek area has decreased. Denies having any chest pain, shortness of breath or cough. No abdominal pain or diarrhea. EXAMINATION: Blood pressure 121/56 with a pulse of 80, temperature 98.4. She is 91% on room air. General description is a middle aged female, lying in bed in no distress. HEENT examination: Left cheek swelling with decreased as well as chin area with no redness. Lungs unlabored breathing. Clear to auscultation anteriorly. Heart S1, S2 regular rate and rhythm. Abdomen soft. No tenderness. LABS: Hemoglobin 7.8, white count 11.6 with a BUN of 59 and creatinine is 2.43. DIAGNOSTIC IMPRESSION AND PLAN: Patient with MRSA facial abscess, status post spontaneous drainage. Blood culture has been negative. Patient did have evidence of renal insufficiency. Vancomycin discontinued and we will add daptomycin 4 mg/kg q.48h. The patient did improve hopefully to finish therapy with oral antibiotics. Continue supportive care. MMODL / IJN: [id number] /
[2018-04-23] MEDS: SODIUM CHLORIDE 0.9% 1,000 ML IV SCH (03:40)
[2018-04-23] MEDS ORDERED: IPRATROPIUM-ALBUTEROL 3 ML NEB INHALATION PRN (03:48)
[2018-04-23 03:51] LABS: Anisocytosis Slight; Basophils % (A) 0 %; Eosinophils # (A) 0.2 k/uL (0-0.7); Eosinophils % (A) 2 %; HCT 22.5 % (34.0-46.0); HGB 7.5 gm/dL (11.4-16.0); Lymphocytes # (A) 0.8 k/uL (1.0-4.8); Lymphocytes % (A) 7 %; MCH 29.6 pg (25.0-35.0); MCHC 33.4 g/dL (31.0-37.0); MCV 88.4 fL (80.0-100.0); Mean Platelet Volume 6.5; Monocytes # (A) 0.5 k/uL (0-1.0); Monocytes % (A) 4 %; Neutrophils # (A) 10.4 k/uL (1.3-7.7); Neutrophils % (A) 87 %; Platelet Count 228 k/uL (150-450); RBC 2.55 m/uL (3.80-5.40); RDW 16.2 % (11.5-15.5)
[2018-04-23 04:01] LABS: Appearance,Urine Cloudy (Clear); Bilirubin,Urine Negative (Negative); Blood,Urine Negative (Negative); Color,Urine Light Yellow; Glucose,Urine (UA) Trace (Negative); Ketones,Urine Negative (Negative); Leukocyte Esterase,Urine Negative (Negative); Nitrite,Urine Negative (Negative); PH, Urine 5.5 (5.0-8.0); Protein,Urine 2+ (Negative); RBC,Urine 1 /hpf (0-5); Squamous Epithelial Cell,Urine <1 /hpf (0-4); Urobilinogen,Urine <2.0 mg/dL (<2.0); WBC,Urine 1 /hpf (0-5)
[2018-04-23 04:05] LABS: Glucose,Whole Blood 171 mg/dL (75-99)
[2018-04-23] MEDS ORDERED: FUROSEMIDE 10 MG/ML 4 ML VIAL IV STA ×2 (04:46→16:44)
[2018-04-23] MEDS ORDERED: FUROSEMIDE 10 MG/ML 2 ML VIAL IV STA (04:49)
[2018-04-23] MEDS: ACETAMINOPHEN TAB 500 MG TAB PO PRN (05:37)
--- NOTE | 2018-04-23 05:51 | XR ---
EXAM: XR Chest, 1 View. CLINICAL HISTORY: Reason: Shortness of breath, possible fluid overload TECHNIQUE: Frontal view of the chest. COMPARISON: 04/22/18 at 0822 hrs. FINDINGS: Lungs: The lungs are mildly hypoinflated. No definite airspace consolidation. Mildly increased perihilar vascular markings as well as bilateral pulmonary interstitial markings seen since the prior exam, likely due to pulmonary vessel congestion and mild interstitial edema. Pleural spaces: No significant pleural effusions. No pneumothorax. Heart: Mild cardiomegaly. Mediastinum: No mediastinal widening or shift. Bones: Unremarkable. No acute fracture. IMPRESSION: Mild pulmonary vascular congestion and interstitial edema. This may be due to volume overload or congestive heart failure. No airspace consolidation, pneumothorax or significant pleural effusion.
[2018-04-23 07:25] LABS: Glucose,Whole Blood 210 mg/dL (75-99)
[2018-04-23] MEDS: IPRATROPIUM-ALBUTEROL 3 ML NEB INHALATION SCH ×4 (08:05→19:18)
[2018-04-23] MEDS: SYMBICORT 160-4.5 MCG INHALER INHALATION SCH (08:05)
[2018-04-23] MEDS: INSULIN ASPART 100 UNIT/ML 1 ML 10 ML VIAL SQ SCH ×6 (08:22→21:22)
[2018-04-23] MEDS: CARVEDILOL 12.5 MG TAB PO SCH ×2 (08:31→17:20)
[2018-04-23] MEDS: amLODIPine 10 MG TAB PO SCH (08:31)
[2018-04-23] MEDS: cloNIDine HCL 0.1 MG TAB PO SCH ×3 (08:31→21:20)
[2018-04-23] MEDS: FERROUS SULFATE 325 MG TAB PO SCH ×2 (08:31→17:20)
[2018-04-23] MEDS: N PO SCH (08:31)
[2018-04-23] MEDS: ASPIRIN 81 MG PO SCH (08:31)
[2018-04-23] MEDS: ENOXAPARIN 30 MG/0.3 ML SYRINGE SQ SCH (08:32)
[2018-04-23] MEDS: GABAPENTIN 300 MG CAP PO SCH ×3 (08:32→21:19)
[2018-04-23] MEDS: LORATADINE 10 MG TAB PO SCH (08:32)
[2018-04-23] MEDS: PANTOPRAZOLE 40 MG/10 ML VIAL IV SCH (08:32)
[2018-04-23] MEDS: MUPIROCIN 2% OINT 22 GM TUBE TOPICAL SCH ×3 (08:32→21:21)
[2018-04-23] MEDS: SODIUM BICARBONATE TAB 650 MG TAB PO SCH ×3 (08:32→21:20)
[2018-04-23] MEDS ORDERED: SODIUM BICARBONATE TAB 650 MG TAB PO SCH (09:00)
--- NOTE | 2018-04-23 09:55 | P.PN ---
Subjective Progress Note Date: 04/23/18 Principal diagnosis: anemia 53-year-old female admitted with MRSA facial abscess status post spontaneous drainage with an underlying history of peptic ulcer disease taking NSAIDs prior to admission admitted with iron deficiency anemia. Initially patient presented with melanotic stools was transfused 2 units of blood and Monday. Over the weekend she is passed nonbloody bowel movements hemoglobin remains stable 7.5. Denies epigastric pain. No emesis. Iron indices consistent with iron deficiency. Last EGD December 2017 no evidence of peptic ulcer disease.. Objective - Vital Signs Vital signs: Vital Signs Temp 100.2 F H 04/23/18 07:23 Pulse 84 04/23/18 08:20 Resp 18 04/23/18 09:06 BP 139/63 04/23/18 05:28 Pulse Ox 93 L 04/23/18 09:06 Intake & Output 04/22/18 04/23/18 04/23/18 18:59 06:59 18:59 Intake Total 1200 900 240 Output Total 1025 Balance 1200 -125 240 Weight 122.1 kg Intake: Intake, IV Titration 900 Amount Sodium Chloride 0.9% 1, 900 000 ml @ 60 mls/hr IV . [id number] [facility] Rx#:[id number] Oral 1200 240 Output: Urine 1025 Other: Voiding Method Bedside Commode Diaper # Voids 1 # Bowel Movements 0 - Exam General appearance: The patient is alert, oriented, in no acute distress. HET: Head is normocephalic and atraumatic. Pupils are equal and reactive. Patient dressings intact. Oropharynx is clear without lesions. Neck: Supple without lymphadenopathy. Trachea midline. Heart: S1 S2. Regular rate and rhythm. Lungs: No crackles or wheezes are heard. Abdomen: Soft, nontender, nondistended with bowel sounds. No peritoneal signs. No palpable organomegaly or masses. Extremities: Normal skin color and turgor. No cyanosis, rash, ulceration, clubbing, or edema. Radial and pedal pulses are 2/4 bilaterally. Neurological: No focal deficits. Strength and sensation are grossly intact. - Labs CBC & Chem 7: 04/23/18 03:20 04/22/18 06:57 Labs: Abnormal Lab Results - Last 24 Hours (Table) 04/22/18 04/22/18 04/22/18 Range/Units 09:27 11:30 17:18 WBC (3.8-10.6) k/uL RBC (3.80-5.40) m/uL Hgb (11.4-16.0) gm/dL Hct (34.0-46.0) % RDW (11.5-15.5) % Neutrophils # (1.3-7.7) k/uL Lymphocytes # (1.0-4.8) k/uL POC Glucose (mg/dL) 210 H 136 H 231 H (75-99) mg/dL Plasma Lactic Acid Ochoa (0.7-2.0) mmol/L Urine Appearance (Clear) Urine Protein (Negative) Urine Glucose (UA) (Negative) 04/22/18 04/23/18 04/23/18 Range/Units 20:40 03:20 03:46 WBC 12.0 H (3.8-10.6) k/uL RBC 2.55 L (3.80-5.40) m/uL Hgb 7.5 L (11.4-16.0) gm/dL Hct 22.5 L (34.0-46.0) % RDW 16.2 H (11.5-15.5) % Neutrophils # 10.4 H (1.3-7.7) k/uL Lymphocytes # 0.8 L (1.0-4.8) k/uL POC Glucose (mg/dL) 236 H (75-99) mg/dL Plasma Lactic Acid Ochoa (0.7-2.0) mmol/L Urine Appearance Cloudy H (Clear) Urine Protein 2+ H (Negative) Urine Glucose (UA) Trace H (Negative) 04/23/18 04/23/18 04/23/18 Range/Units 03:56 07:21 08:08 WBC (3.8-10.6) k/uL RBC (3.80-5.40) m/uL Hgb (11.4-16.0) gm/dL Hct (34.0-46.0) % RDW (11.5-15.5) % Neutrophils # (1.3-7.7) k/uL Lymphocytes # (1.0-4.8) k/uL POC Glucose (mg/dL) 171 H 210 H (75-99) mg/dL Plasma Lactic Acid Ochoa 0.5 L (0.7-2.0) mmol/L Urine Appearance (Clear) Urine Protein (Negative) Urine Glucose (UA) (Negative) Microbiology - Last 24 Hours (Table) 04/19/18 17:20 Blood Culture - Preliminary Blood No Growth after 72 hours 04/20/18 12:56 Gram Stain - Final Face Wound Culture - Final Methicillin resist S. aureus 04/19/18 20:01 Gram Stain - Final Face Wound Culture - Final Methicillin resist S. aureus Assessment and Plan (1) Anemia Narrative/Plan: 53-year-old female with a history of prepyloric antral ulcers status post EGD December 2017 with no evidence of active ulcer disease presents with hyperosmolar hyperglycemic state secondary to uncontrolled diabetes mellitus as well as facial cellulitis dental abscess taking daily NSAIDS x 2 weeks with reports of melena darker colored bowel movements with evidence of biochemical acute blood loss iron deficiency anemia. Possible recurrent peptic ulcer disease possible gastritis and duodenitis exacerbated by NSAID therapy. Presently passing nonbloody bowel movements hemoglobin stable at 7.5. Current Visit: Yes Status: Acute Code(s): D64.9 - ANEMIA, UNSPECIFIED SNOMED Code(s): 928481544 Plan: 1. Continue with present medical therapy. Presently not bleeding. Hemoglobin stable at 7.5. EGD not planned but contingent on clinical course. Continue Protonix twice daily. CBC monitoring. No NSAIDS. Will follow closely with you. Assessment and plan a care discussed with Dr. Nazario
[2018-04-23] MEDS: ERYTHROMYCIN 5 MG/GM OPHTH OINT 3.5 GM TUBE RIGHT EYE SCH ×4 (10:10→21:19)
--- NOTE | 2018-04-23 12:18 | CDI ---
Last Revision, June 2017 Documentation Clarification Form Date: 04/23/2018 12:08:19 PM From: Rosemary Padron RN, CCDS Admit Date: 04/19/2018 7:40:00 PM Patient Name: Alexandra Taylor Visit Number: [id number] ATTENTION: The Clinical Documentation Specialists (CDI) and [facility] Coding Staff appreciate your assistance in clarifying documentation. Please respond to the clarification below the line at the bottom and electronically sign. The CDI & [facility] Coding staff will review the response and follow-up if needed. Please note: Queries are made part of the Legal Health Record. If you have any questions, please contact the author of this message via ITS. Dr. Gibson Hx of Atrial fibrillation is documented in your Progress notes and requires further specificity. History/Risk Factors: DM, Asthma, HTN, ORALIA with ATN on CKD stage 3, anxiety Clinical Indicators: EKG/telemetry: NSR/ST Treatment: Consults: Cardiology Coreg 25 mg PO BID Catapress 0.2 mg PO TID 3.5 L IVF Bolus In your professional opinion, can you please clarify the type of atrial fibrillation history, if known? Chronic/Permanent Paroxysmal Persistent Other, please specify Unable to determine Please continue to document in your progress notes and discharge summary in order to capture severity of illness and risk of mortality. Include clinical findings that support your diagnosis. Unable to determine MTDD
[2018-04-23 12:36] LABS: Glucose,Whole Blood 207 mg/dL (75-99)
[2018-04-23 16:16] LABS: ABG HCO3 16 mmol/L (21-25); ABG PCO2 21 mmHg (35-45); ABG PH 7.49 (7.35-7.45); ABG PO2 177 mmHg (83-108)
--- NOTE | 2018-04-23 16:16 | XR ---
EXAMINATION TYPE: XR chest 1V portable DATE OF EXAM: 04/23/2018 CLINICAL HISTORY: Difficulty breathing progress study. TECHNIQUE: Single AP portable upright view of the chest is obtained. COMPARISON: Chest x-ray from earlier today FINDINGS: Cardiac silhouette size is stable and mildly enlarged. Lungs remain grossly clear without pleural effusion or pneumothorax seen bilaterally. Osseous structures are intact. Suspect interval im provement in mild interstitial edema and congestion. IMPRESSION: Cardiomegaly redemonstrated with improving mild central vascular congestion and interstit ial edema. No new infiltrate is present.
[2018-04-23 16:17] LABS: ABG Oxygen Saturation 99.6 % (94-97); ABG TCO2 9 mmol/L (19-24)
[2018-04-23 17:12] LABS: Calcium 8.3 mg/dL (8.4-10.2); Potassium 4.5 mmol/L (3.5-5.1)
[2018-04-23] MEDS: methylPREDNISolone SOD SUCCI 125 MG/2 ML VIAL IV SCH ×3 (17:19→23:58)
[2018-04-23 17:27] LABS: Glucose,Whole Blood 364 mg/dL (75-99)
--- NOTE | 2018-04-23 17:30 | PN ---
PROGRESS NOTE Patient is seen for followup for acute kidney injury. Patient is currently lying in bed. She denies any significant complaints. She is sleeping but arousable. I do not see any labs from today. Serum creatinine was 2.43 yesterday, which was higher than 2.0 the day before. Patient states she has been voiding; 24-hour urine output documented at 1025 mL. On examination, blood pressure was 139/63, heart rate of 80 per minute. Patient has low-grade temperature at 100.2 degrees Fahrenheit. EXAMINATION OF THE HEART: S1, S2. EXAMINATION OF LUNGS: Bilateral breath sounds are heard. ABDOMEN: Soft, obese. Examination of lower extremities shows no significant edema. Patient has 3 areas of drainage from facial abscess. Labs are not available from today. Serum creatinine was 2.43 yesterday, BUN 59, sodium 135, hemoglobin 7.9. ASSESSMENT: 1. Acute kidney injury secondary to sepsis, currently nonoliguric with adequate urine output. Repeat labs today. 2. Chronic kidney disease secondary to diabetic nephropathy and nephrosclerosis. Baseline creatinine about 1.6 to 2.4 mg/dL. 3. Facial abscess, currently on antibiotics. Fluid culture growing MRSA. 4. Hyponatremia associated with severe hyperglycemia, currently improved. 5. Diabetic neuropathy. PLAN: Repeat labs today. May continue holding off on IV fluids. Agree with discontinuation of vancomycin. Avoid hypotension. MMODL / IJN: [id number] /
[2018-04-23] MEDS: PANTOPRAZOLE 40 MG TABLET PO SCH (18:19)
--- NOTE | 2018-04-23 18:39 | P.PN ---
Subjective This is a pleasant 53 years old female who presents with left Side cheek abscess that is open and draining purulant discharge and failed outpatient treatment with hyperglycemia as high as 1129 on admission. With elevated troponin. Her sodium was low on admission as low as 118, but corrected for hyperglycemia it to be in mid 130s. Patient was treated with fluids and insulin drip. As well as antibiotic. pt today on 04/21 is telling me she started feeling better regarding her facial infection however there is still swelling ,redness and induration , pt is already on antiobiotic iv vancomycin , ID team is been consulted . her sugar is better controlled currently 04/22/2018 Patient spiked fever of 101.2. Left facial infection and discharge. Patient remains on antibiotics per ID team recommendation. We will call ENT for evaluation of her left facial infection. Patient is status post I and D for multiple superficial abscesses. Patient is not emptying well and she has low sugar episode yesterday. We will decrease her insulin to 10 units every morning and 5 units every afternoon. Creatinine is 2.4, nephrology team is been consulted and their input is appreciated. And the recommended to switch antibiotics alert and vancomycin. I explained risk of nephrotoxicity to the patient and she agrees to continue with it if it is indicated Patient with anemia, iron is low at 25, as well as iron saturation is low at 9.5. Check FOBT. Call GI consult, she is been evaluated before by Dr. Guerra for gastric ulcers. Start iron pills 04/23/2018 Patient is more lethargic today, with some respiratory distress and dyspnea. She was desaturating and needed 5 L of oxygen to keep her oxygen level and the mid 90s. Repeat chest x-ray shows improving vascular congestion and edema, no new infiltrate. ABG showed pH 7.4, pCO2 low at 21, pO2 high at 177. Call pulmonary/critical care for reevaluation. Patient is a status post I&D for her multiple facial abscesses. That she's continue on daptomycin as per ID recommendation. Patient has acute kidney injury secondary to sepsis. However her creatinine is close to her baseline and is slightly elevated from 2.43 to 2.59. Baseline creatinine between 1.6-2.4 as patient has diabetic nephropathy. Nephrology input is appreciated. DC IV fluids. Monitor vitals and labs. WBC 12 K. Culture is growing MRSA. CONSTITUTIONAL: No fever, no malaise, no fatigue. HEENT: No recent visual problems or hearing problems. Denied any sore throat. CARDIOVASCULAR: No orthopnea, PND, no palpitations, no syncope. PULMONARY:no hemoptysis. GASTROINTESTINAL: No diarrhea, no nausea, no vomiting, no abdominal pain. Normoactive bowel sounds. NEUROLOGICAL: No headaches, no weakness, no numbness. HEMATOLOGICAL: Denies any bleeding or petechiae. GENITOURINARY: Denies any burning micturition, frequency, or urgency. MUSCULOSKELETAL/RHEUMATOLOGICAL: Denies any joint pain, swelling, or any muscle pain. ENDOCRINE: Denies any polyuria or polydipsia. Medication with dosages and reviewed including. Tylenol 1000 mg, dunobs 0.5-3 mg, Symbicort 162 4.5 g, Coreg 25 mg, Celexa 40 mg, Lovenox 30 mg, azithromycin ointment, Flonase nasal spray, Neurontin 600 mg, Dilaudid 1 mg, Claritin 10 mg, daptomycin, Protonix 40 mg, sodium bicarb 650 mg, Restoril 50 mg , Objective - Vital Signs Vital signs: Vital Signs Temp 100.0 F H 04/23/18 15:00 Pulse 86 04/23/18 15:40 Resp 18 04/23/18 16:33 BP 137/65 04/23/18 15:00 Pulse Ox 99 04/23/18 16:33 Intake & Output 04/22/18 04/23/18 04/23/18 18:59 06:59 18:59 Intake Total 1200 900 240 Output Total 1025 300 Balance 1200 -125 -60 Weight 122.1 kg Intake: Intake, IV Titration 900 Amount Sodium Chloride 0.9% 1, 900 000 ml @ 60 mls/hr IV . [id number] [facility] Rx#:[id number] Oral 1200 240 Output: Urine 1025 300 Other: Voiding Method Bedside Commode Bedpan Diaper # Voids 1 3 # Bowel Movements 0 - Exam GENERAL: The patient is alert and oriented x3, patient is more lethargic, not in any acute distress. Well developed, obese -HEENT: Pupils are round and equally reacting to light. EOMI. No scleral icterus. No conjunctival pallor. Normocephalic, atraumatic. No pharyngeal erythema. No thyromegaly. left cheek infection which is opon and there is purulent discharge with small area of underlying induration , CARDIOVASCULAR: S1 and S2 present. No murmurs, rubs, or gallops. PULMONARY: Chest is clear to auscultation, no wheezing or crackles. ABDOMEN: Soft, nontender, nondistended, normoactive bowel sounds. No palpable organomegaly. MUSCULOSKELETAL: No joint swelling or deformity. EXTREMITIES: No cyanosis, clubbing, or pedal edema. NEUROLOGICAL: Gross neurological examination did not reveal any focal deficits. SKIN: No rashes. - Labs CBC & Chem 7: 04/23/18 03:20 04/23/18 16:47 Labs: Abnormal Lab Results - Last 24 Hours (Table) 04/22/18 04/23/18 04/23/18 Range/Units 20:40 03:20 03:46 WBC 12.0 H (3.8-10.6) k/uL RBC 2.55 L (3.80-5.40) m/uL Hgb 7.5 L (11.4-16.0) gm/dL Hct 22.5 L (34.0-46.0) % RDW 16.2 H (11.5-15.5) % Neutrophils # 10.4 H (1.3-7.7) k/uL Lymphocytes # 0.8 L (1.0-4.8) k/uL ABG pH (7.35-7.45) ABG pCO2 (35-45) mmHg ABG pO2 (83-108) mmHg ABG HCO3 (21-25) mmol/L ABG Total CO2 (19-24) mmol/L ABG O2 Saturation (94-97) % Sodium (137-145) mmol/L Chloride (98-107) mmol/L Carbon Dioxide (22-30) mmol/L BUN (7-17) mg/dL Creatinine (0.52-1.04) mg/dL Glucose (74-99) mg/dL POC Glucose (mg/dL) 236 H (75-99) mg/dL Plasma Lactic Acid Ochoa (0.7-2.0) mmol/L Calcium (8.4-10.2) mg/dL Urine Appearance Cloudy H (Clear) Urine Protein 2+ H (Negative) Urine Glucose (UA) Trace H (Negative) 04/23/18 04/23/18 04/23/18 Range/Units 03:56 07:21 08:08 WBC (3.8-10.6) k/uL RBC (3.80-5.40) m/uL Hgb (11.4-16.0) gm/dL Hct (34.0-46.0) % RDW (11.5-15.5) % Neutrophils # (1.3-7.7) k/uL Lymphocytes # (1.0-4.8) k/uL ABG pH (7.35-7.45) ABG pCO2 (35-45) mmHg ABG pO2 (83-108) mmHg ABG HCO3 (21-25) mmol/L ABG Total CO2 (19-24) mmol/L ABG O2 Saturation (94-97) % Sodium (137-145) mmol/L Chloride (98-107) mmol/L Carbon Dioxide (22-30) mmol/L BUN (7-17) mg/dL Creatinine (0.52-1.04) mg/dL Glucose (74-99) mg/dL POC Glucose (mg/dL) 171 H 210 H (75-99) mg/dL Plasma Lactic Acid Ochoa 0.5 L (0.7-2.0) mmol/L Calcium (8.4-10.2) mg/dL Urine Appearance (Clear) Urine Protein (Negative) Urine Glucose (UA) (Negative) 04/23/18 04/23/18 04/23/18 Range/Units 12:29 15:59 16:47 WBC (3.8-10.6) k/uL RBC (3.80-5.40) m/uL Hgb (11.4-16.0) gm/dL Hct (34.0-46.0) % RDW (11.5-15.5) % Neutrophils # (1.3-7.7) k/uL Lymphocytes # (1.0-4.8) k/uL ABG pH 7.49 H (7.35-7.45) ABG pCO2 21 L (35-45) mmHg ABG pO2 177 H (83-108) mmHg ABG HCO3 16 L (21-25) mmol/L ABG Total CO2 9 L (19-24) mmol/L ABG O2 Saturation 99.6 H (94-97) % Sodium 135 L (137-145) mmol/L Chloride 108 H (98-107) mmol/L Carbon Dioxide 15 L (22-30) mmol/L BUN 57 H (7-17) mg/dL Creatinine 2.59 H (0.52-1.04) mg/dL Glucose 287 H (74-99) mg/dL POC Glucose (mg/dL) 207 H (75-99) mg/dL Plasma Lactic Acid Ochoa (0.7-2.0) mmol/L Calcium 8.3 L (8.4-10.2) mg/dL Urine Appearance (Clear) Urine Protein (Negative) Urine Glucose (UA) (Negative) 04/23/18 Range/Units 17:22 WBC (3.8-10.6) k/uL RBC (3.80-5.40) m/uL Hgb (11.4-16.0) gm/dL Hct (34.0-46.0) % RDW (11.5-15.5) % Neutrophils # (1.3-7.7) k/uL Lymphocytes # (1.0-4.8) k/uL ABG pH (7.35-7.45) ABG pCO2 (35-45) mmHg ABG pO2 (83-108) mmHg ABG HCO3 (21-25) mmol/L ABG Total CO2 (19-24) mmol/L ABG O2 Saturation (94-97) % Sodium (137-145) mmol/L Chloride (98-107) mmol/L Carbon Dioxide (22-30) mmol/L BUN (7-17) mg/dL Creatinine (0.52-1.04) mg/dL Glucose (74-99) mg/dL POC Glucose (mg/dL) 364 H (75-99) mg/dL Plasma Lactic Acid Ochoa (0.7-2.0) mmol/L Calcium (8.4-10.2) mg/dL Urine Appearance (Clear) Urine Protein (Negative) Urine Glucose (UA) (Negative) Microbiology - Last 24 Hours (Table) 04/23/18 03:46 Urine Culture - Preliminary Urine,Voided 04/20/18 12:56 Gram Stain - Final Face Wound Culture - Final Methicillin resist S. aureus 04/19/18 17:20 Blood Culture - Preliminary Blood No Growth after 72 hours Assessment and Plan Assessment: Acute hyperosmolar ketotic diabetic state. , resolving Uncontrolled type 2 diabetes mellitus with hyperglycemia facial cellulitis, sepsis. Present on admission. Status post I and D for her facial abscesses Anemia, iron deficiency anemia History of gastric ulcer History of low vitamin D Mild hyponatremia, corrected for hyperglycemia Chronic kidney disease, stage III, with some elements of acute kidney injury, mostly related to sepsis Elevated troponin History of asthma GERD Essential hypertension Hyperlipidemia History of migraine History of atrial fibrillation Obesity with body mass index of 43.1 Plan: We recommend to continue with the same medication. Continue with symptomatic treatment. Resume home medication. Resume insulin and monitor her sugar level. Continue with antibiotics. Pulmonary/critical care consult is appreciated. licensed final expense agents team evalauted pt for elevated troponin , ID are called for left facial cellulitis and antibiotics adjusted as per their team . Patient status post I and D for her facial abscesses by ENT specialist. We'll call GI consult for iron deficiency anemia: The recommended outpatient follow- up and 10 with conservative management currently. Call pulmonary consult. GI and DVT prophylaxis. Further recommendation the clinical course of the patient.Prognosis is guarded
[2018-04-23 20:51] LABS: Glucose,Whole Blood 454 mg/dL (75-99)
[2018-04-23 20:53] LABS: Glucose,Whole Blood 445 mg/dL (75-99)
[2018-04-23] MEDS ORDERED: INSULIN REGULAR BOLUS (FROM DRIP BAG) IV ONE (21:06)
[2018-04-23] MEDS: HYDROmorphone 1 MG/ML 1 ML SYRINGE IVP PRN (21:29)
--- NOTE | 2018-04-23 21:54 | PN ---
PROGRESS NOTE DATE OF SERVICE: 04/23/2018 REASON FOR FOLLOWUP: MRSA facial abscess and cellulitis. INTERVAL HISTORY: The patient is currently afebrile. Facial swelling and redness slightly decreased. Wound with no significant drainage. Denies having any chest pain. Some shortness of breath. Occasional cough. No abdominal pain or any diarrhea. PHYSICAL EXAMINATION: Blood pressure 136/65 with a pulse of 83, temperature 98.3. She is 97% on room air. General description is a middle-aged female lying in bed in no distress. HEENT EXAMINATION: The facial wounds currently dressed. No obvious drainage on the dressing. LUNGS: Unlabored breathing. Clear to auscultation anteriorly. HEART: S1, S2. Regular rate and rhythm. ABDOMEN: Soft. No tenderness. LABS: BUN of 57, creatinine 2.59. Wound culture with MRSA. DIAGNOSTIC IMPRESSION AND PLAN: Patient with methicillin-resistant Staphylococcus aeruginosa abscess with spontaneous drainage of the facial area. Patient is currently on daptomycin because of her borderline kidney function. In view of multiple antibiotic allergies, will keep the patient on daptomycin and hopefully switch her to oral doxycycline on discharge. Family was present at the bedside. Their questions were answered. MMODL / IJN: [id number] /
[2018-04-23 21:57] LABS: Glucose,Whole Blood 427 mg/dL (75-99)
[2018-04-23] MEDS: INSULIN REGULAR 100 UNIT in SODIUM CHLORIDE 0.9% 100 ML IV SCH (22:25)
[2018-04-23 23:10] LABS: Glucose,Whole Blood 392 mg/dL (75-99)
[2018-04-23 23:50] LABS: Glucose,Whole Blood 314 mg/dL (75-99)
[2018-04-24 00:21] LABS: Glucose,Whole Blood 265 mg/dL (75-99)
[2018-04-24 00:54] LABS: Glucose,Whole Blood 230 mg/dL (75-99)
[2018-04-24 03:33] LABS: Glucose,Whole Blood 158 mg/dL (75-99)
[2018-04-24 04:34] LABS: Glucose,Whole Blood 166 mg/dL (75-99)
[2018-04-24 05:39] LABS: Glucose,Whole Blood 171 mg/dL (75-99)
[2018-04-24] MEDS: INSULIN ASPART 100 UNIT/ML 1 ML 10 ML VIAL SQ SCH ×5 (05:39→17:45)
[2018-04-24] MEDS: PANTOPRAZOLE 40 MG TABLET PO SCH ×2 (06:23→17:55)
[2018-04-24] MEDS: FERROUS SULFATE 325 MG TAB PO SCH ×2 (06:23→17:55)
[2018-04-24] MEDS: CARVEDILOL 12.5 MG TAB PO SCH ×2 (06:23→17:55)
[2018-04-24] MEDS: methylPREDNISolone SOD SUCCI 125 MG/2 ML VIAL IV SCH ×4 (06:23→23:30)
[2018-04-24] MEDS: IPRATROPIUM-ALBUTEROL 3 ML NEB INHALATION SCH ×4 (07:20→20:04)
[2018-04-24] MEDS: SYMBICORT 160-4.5 MCG INHALER INHALATION SCH (07:37)
[2018-04-24 07:46] LABS: Glucose,Whole Blood 168 mg/dL (75-99)
--- NOTE | 2018-04-24 08:11 | XR ---
EXAMINATION TYPE: XR chest 1V portable DATE OF EXAM: 04/24/2018 COMPARISON: NONE HISTORY: shortness of breath and wheezing TECHNIQUE: Single frontal view of the chest is obtained. FINDINGS: There is no focal air space opacity, pleural effusion, or pneumothorax seen. The cardiac silhouette size is stable, enlarged. The osseous structures are intact. There are overlying cardiac leads, there is bronchial wall thickening. IMPRESSION: Correlate for bronchitis, reactive airways disease. Stable cardiomegaly.
[2018-04-24 08:46] LABS: Calcium 8.9 mg/dL (8.4-10.2); Potassium 4.4 mmol/L (3.5-5.1)
[2018-04-24 09:33] LABS: Glucose,Whole Blood 317 mg/dL (75-99)
[2018-04-24] MEDS: cloNIDine HCL 0.1 MG TAB PO SCH ×4 (09:40→22:23)
[2018-04-24] MEDS: ENOXAPARIN 30 MG/0.3 ML SYRINGE SQ SCH (09:40)
[2018-04-24] MEDS: LORATADINE 10 MG TAB PO SCH (09:40)
[2018-04-24] MEDS: N PO SCH (09:40)
[2018-04-24] MEDS: SODIUM BICARBONATE TAB 650 MG TAB PO SCH ×3 (09:40→22:00)
[2018-04-24] MEDS: amLODIPine 10 MG TAB PO SCH (09:40)
[2018-04-24] MEDS: ASPIRIN 81 MG PO SCH (09:40)
[2018-04-24] MEDS: GABAPENTIN 300 MG CAP PO SCH (09:40)
[2018-04-24] MEDS: ERYTHROMYCIN 5 MG/GM OPHTH OINT 3.5 GM TUBE RIGHT EYE SCH ×4 (09:41→22:25)
[2018-04-24] MEDS: MUPIROCIN 2% OINT 22 GM TUBE TOPICAL SCH ×3 (09:42→22:25)
[2018-04-24 10:17] VITALS: BMI 48.3
[2018-04-24] MEDS: INSULIN REGULAR 100 UNIT in SODIUM CHLORIDE 0.9% 100 ML IV SCH ×2 (10:35→20:09)
--- NOTE | 2018-04-24 11:15 | P.PN ---
Subjective Patient is seen in follow-up for acute kidney injury. Renal function is worsening with creatinine up to 2.9 today. Patient's currently being treated for dental abscess. Vancomycin level was high at 24 on April 21 and was changed to daptomycin. She is tolerating soft diet. Admits to good urine output. No vomiting or diarrhea. Vital signs are stable. General: The patient appeared well nourished and normally developed. HEENT: Head exam is unremarkable. Neck is without jugular venous distension. No obvious drainage noted. LUNGS: Lungs are clear to auscultation and percussion. Breath sounds decreased. HEART: Rate and Rhythm are regular. First and second heart sounds normal. No murmurs, rubs or gallops. ABDOMEN: Abdominal exam reveals normal bowel sounds. Non-tender and non- distended. No evidence of peritonitis. EXTREMITITES: No clubbing, cyanosis, or edema. Objective - Vital Signs Vital signs: Vital Signs Temp 97.6 F 04/24/18 08:00 Pulse 68 04/24/18 08:00 Resp 16 04/24/18 07:21 BP 132/60 04/24/18 08:00 Pulse Ox 99 04/24/18 08:00 Intake & Output 04/23/18 04/24/18 04/24/18 18:59 06:59 18:59 Intake Total 240 336.233 254.767 Output Total 1200 Balance -960 336.233 254.767 Weight 119.9 kg 119.9 kg Intake: Intake, IV Titration 86.233 14.767 Amount Insulin Regular 100 unit 86.233 14.767 In Sodium Chloride 0.9% 100 ml @ Titrate IV .Q0M [facility] Rx#:[id number] Oral 240 250 240 Output: Urine 1200 Other: Voiding Method Bedpan Bedpan Bedpan Diaper Diaper Incontinent Incontinent # Voids 2 1 - Labs CBC & Chem 7: 04/23/18 03:20 04/24/18 07:29 Labs: Abnormal Lab Results - Last 24 Hours (Table) 04/23/18 04/23/18 04/23/18 Range/Units 12:29 15:59 16:47 ABG pH 7.49 H (7.35-7.45) ABG pCO2 21 L (35-45) mmHg ABG pO2 177 H (83-108) mmHg ABG HCO3 16 L (21-25) mmol/L ABG Total CO2 9 L (19-24) mmol/L ABG O2 Saturation 99.6 H (94-97) % Sodium 135 L (137-145) mmol/L Chloride 108 H (98-107) mmol/L Carbon Dioxide 15 L (22-30) mmol/L BUN 57 H (7-17) mg/dL Creatinine 2.59 H (0.52-1.04) mg/dL Glucose 287 H (74-99) mg/dL POC Glucose (mg/dL) 207 H (75-99) mg/dL Calcium 8.3 L (8.4-10.2) mg/dL 04/23/18 04/23/18 04/23/18 Range/Units 17:22 20:49 20:50 ABG pH (7.35-7.45) ABG pCO2 (35-45) mmHg ABG pO2 (83-108) mmHg ABG HCO3 (21-25) mmol/L ABG Total CO2 (19-24) mmol/L ABG O2 Saturation (94-97) % Sodium (137-145) mmol/L Chloride (98-107) mmol/L Carbon Dioxide (22-30) mmol/L BUN (7-17) mg/dL Creatinine (0.52-1.04) mg/dL Glucose (74-99) mg/dL POC Glucose (mg/dL) 364 H 454 H 445 H (75-99) mg/dL Calcium (8.4-10.2) mg/dL 04/23/18 04/23/18 04/23/18 Range/Units 21:54 23:08 23:48 ABG pH (7.35-7.45) ABG pCO2 (35-45) mmHg ABG pO2 (83-108) mmHg ABG HCO3 (21-25) mmol/L ABG Total CO2 (19-24) mmol/L ABG O2 Saturation (94-97) % Sodium (137-145) mmol/L Chloride (98-107) mmol/L Carbon Dioxide (22-30) mmol/L BUN (7-17) mg/dL Creatinine (0.52-1.04) mg/dL Glucose (74-99) mg/dL POC Glucose (mg/dL) 427 H 392 H 314 H (75-99) mg/dL Calcium (8.4-10.2) mg/dL 04/24/18 04/24/18 04/24/18 Range/Units 00:19 00:52 03:31 ABG pH (7.35-7.45) ABG pCO2 (35-45) mmHg ABG pO2 (83-108) mmHg ABG HCO3 (21-25) mmol/L ABG Total CO2 (19-24) mmol/L ABG O2 Saturation (94-97) % Sodium (137-145) mmol/L Chloride (98-107) mmol/L Carbon Dioxide (22-30) mmol/L BUN (7-17) mg/dL Creatinine (0.52-1.04) mg/dL Glucose (74-99) mg/dL POC Glucose (mg/dL) 265 H 230 H 158 H (75-99) mg/dL Calcium (8.4-10.2) mg/dL 04/24/18 04/24/18 04/24/18 Range/Units 04:33 05:36 07:29 ABG pH (7.35-7.45) ABG pCO2 (35-45) mmHg ABG pO2 (83-108) mmHg ABG HCO3 (21-25) mmol/L ABG Total CO2 (19-24) mmol/L ABG O2 Saturation (94-97) % Sodium (137-145) mmol/L Chloride 110 H (98-107) mmol/L Carbon Dioxide 18 L (22-30) mmol/L BUN 61 H (7-17) mg/dL Creatinine 2.90 H (0.52-1.04) mg/dL Glucose 149 H (74-99) mg/dL POC Glucose (mg/dL) 166 H 171 H (75-99) mg/dL Calcium (8.4-10.2) mg/dL 04/24/18 04/24/18 Range/Units 07:35 09:21 ABG pH (7.35-7.45) ABG pCO2 (35-45) mmHg ABG pO2 (83-108) mmHg ABG HCO3 (21-25) mmol/L ABG Total CO2 (19-24) mmol/L ABG O2 Saturation (94-97) % Sodium (137-145) mmol/L Chloride (98-107) mmol/L Carbon Dioxide (22-30) mmol/L BUN (7-17) mg/dL Creatinine (0.52-1.04) mg/dL Glucose (74-99) mg/dL POC Glucose (mg/dL) 168 H 317 H (75-99) mg/dL Calcium (8.4-10.2) mg/dL Microbiology - Last 24 Hours (Table) 04/19/18 17:20 Blood Culture - Preliminary Blood No Growth after 96 hours 04/23/18 03:46 Urine Culture - Preliminary Urine,Voided 04/20/18 12:56 Gram Stain - Final Face Wound Culture - Final Methicillin resist S. aureus Assessment and Plan Plan: Assessment: 1. Nonoliguric acute kidney injury secondary to ATN secondary to infection and component of vancomycin toxicity. Creatinine up to 2.9 today. 2. Chronic kidney disease stage III secondary to diabetic kidney disease with baseline creatinine in the range of 1.6-2.4 recently. 3. Facial abscess and cellulitis maintained on antibiotics per infectious disease. Wound culture positive for MRSA. 4. Metabolic acidosis secondary to acute kidney injury. 5. Hypertension with chronic kidney disease. Controlled. 6. Diabetes mellitus. Plan: Increase sodium bicarbonate 1300 mg 3 times daily. Decrease Neurontin 200 mg 3 times daily. Continue to hold off on IV fluids and diuretics today. Continue to monitor renal function and urine output. Repeat electrolytes in the morning.
[2018-04-24 11:38] LABS: Glucose,Whole Blood 293 mg/dL (75-99)
--- NOTE | 2018-04-24 12:57 | P.PN ---
Subjective This is a pleasant 53 years old female who presents with left Side cheek abscess that is open and draining purulant discharge and failed outpatient treatment with hyperglycemia as high as 1129 on admission. With elevated troponin. Her sodium was low on admission as low as 118, but corrected for hyperglycemia it to be in mid 130s. Patient was treated with fluids and insulin drip. As well as antibiotic. pt today on 04/21 is telling me she started feeling better regarding her facial infection however there is still swelling ,redness and induration , pt is already on antiobiotic iv vancomycin , ID team is been consulted . her sugar is better controlled currently 04/22/2018 Patient spiked fever of 101.2. Left facial infection and discharge. Patient remains on antibiotics per ID team recommendation. We will call ENT for evaluation of her left facial infection. Patient is status post I and D for multiple superficial abscesses. Patient is not emptying well and she has low sugar episode yesterday. We will decrease her insulin to 10 units every morning and 5 units every afternoon. Creatinine is 2.4, nephrology team is been consulted and their input is appreciated. And the recommended to switch antibiotics alert and vancomycin. I explained risk of nephrotoxicity to the patient and she agrees to continue with it if it is indicated Patient with anemia, iron is low at 25, as well as iron saturation is low at 9.5. Check FOBT. Call GI consult, she is been evaluated before by Dr. Guerra for gastric ulcers. Start iron pills 04/23/2018 Patient is more lethargic today, with some respiratory distress and dyspnea. She was desaturating and needed 5 L of oxygen to keep her oxygen level and the mid 90s. Repeat chest x-ray shows improving vascular congestion and edema, no new infiltrate. ABG showed pH 7.4, pCO2 low at 21, pO2 high at 177. Call pulmonary/critical care for reevaluation. Patient is a status post I&D for her multiple facial abscesses. That she's continue on daptomycin as per ID recommendation. Patient has acute kidney injury secondary to sepsis. However her creatinine is close to her baseline and is slightly elevated from 2.43 to 2.59. Baseline creatinine between 1.6-2.4 as patient has diabetic nephropathy. Nephrology input is appreciated. DC IV fluids. Monitor vitals and labs. WBC 12 K. Culture is growing MRSA. 04/24/2018 Patient is fully awake and oriented today, her breathing is quiet. Patient is still have multiple opening wound abscesses with purulent discharge, most of them. Yesterday patient desaturated and she has some pulmonary congestion she received 1 dose of Lasix by the critical care team. Her creatinine went up from 2.5 to 2.9 mostly secondary to infection and Lasix. Baseline creatinine 1.6-2.4 Nephrology team are following the patient. Recommended to discontinue the fluids and diuretics for now. insulin dose is increased . Repeat chest x- ray shows possible bronchitis. Patient had fever yesterday of 100. Saturating 99% on 6 L nasal cannula patient has MRSA wound culture. CONSTITUTIONAL: No fever, no malaise, no fatigue. HEENT: No recent visual problems or hearing problems. Denied any sore throat. CARDIOVASCULAR: No orthopnea, PND, no palpitations, no syncope. PULMONARY:no hemoptysis. GASTROINTESTINAL: No diarrhea, no nausea, no vomiting, no abdominal pain. Normoactive bowel sounds. NEUROLOGICAL: No headaches, no weakness, no numbness. HEMATOLOGICAL: Denies any bleeding or petechiae. GENITOURINARY: Denies any burning micturition, frequency, or urgency. MUSCULOSKELETAL/RHEUMATOLOGICAL: Denies any joint pain, swelling, or any muscle pain. ENDOCRINE: Denies any polyuria or polydipsia. Medication with dosages and reviewed including. Tylenol 1000 mg, dunobs 0.5-3 mg, Symbicort 162 4.5 g, Coreg 25 mg, Celexa 40 mg, Lovenox 30 mg, azithromycin ointment, Flonase nasal spray, Neurontin 600 mg, Dilaudid 1 mg, Claritin 10 mg, daptomycin, Protonix 40 mg, sodium bicarb 650 mg, Restoril 50 mg , Objective - Vital Signs Vital signs: Vital Signs Temp 97.6 F 04/24/18 08:00 Pulse 82 04/24/18 12:01 Resp 16 04/24/18 11:41 BP 132/60 04/24/18 08:00 Pulse Ox 99 04/24/18 08:00 Intake & Output 04/23/18 04/24/18 04/24/18 18:59 06:59 18:59 Intake Total 240 336.233 254.767 Output Total 1200 Balance -960 336.233 254.767 Weight 119.9 kg 119.9 kg Intake: Intake, IV Titration 86.233 14.767 Amount Insulin Regular 100 unit 86.233 14.767 In Sodium Chloride 0.9% 100 ml @ Titrate IV .Q0M [facility] Rx#:[id number] Oral 240 250 240 Output: Urine 1200 Other: Voiding Method Bedpan Bedpan Bedpan Diaper Diaper Incontinent Incontinent # Voids 2 1 - Exam GENERAL: The patient is alert and oriented x3, patient is more lethargic, not in any acute distress. Well developed, obese -HEENT: Pupils are round and equally reacting to light. EOMI. No scleral icterus. No conjunctival pallor. Normocephalic, atraumatic. No pharyngeal erythema. No thyromegaly. left cheek infection which is opon and there is purulent discharge with small area of underlying induration , CARDIOVASCULAR: S1 and S2 present. No murmurs, rubs, or gallops. PULMONARY: Chest is clear to auscultation, no wheezing or crackles. ABDOMEN: Soft, nontender, nondistended, normoactive bowel sounds. No palpable organomegaly. MUSCULOSKELETAL: No joint swelling or deformity. EXTREMITIES: No cyanosis, clubbing, or pedal edema. NEUROLOGICAL: Gross neurological examination did not reveal any focal deficits. SKIN: No rashes. - Labs CBC & Chem 7: 04/23/18 03:20 04/24/18 07:29 Labs: Abnormal Lab Results - Last 24 Hours (Table) 04/23/18 04/23/18 04/23/18 Range/Units 15:59 16:47 17:22 ABG pH 7.49 H (7.35-7.45) ABG pCO2 21 L (35-45) mmHg ABG pO2 177 H (83-108) mmHg ABG HCO3 16 L (21-25) mmol/L ABG Total CO2 9 L (19-24) mmol/L ABG O2 Saturation 99.6 H (94-97) % Sodium 135 L (137-145) mmol/L Chloride 108 H (98-107) mmol/L Carbon Dioxide 15 L (22-30) mmol/L BUN 57 H (7-17) mg/dL Creatinine 2.59 H (0.52-1.04) mg/dL Glucose 287 H (74-99) mg/dL POC Glucose (mg/dL) 364 H (75-99) mg/dL Calcium 8.3 L (8.4-10.2) mg/dL 04/23/18 04/23/18 04/23/18 Range/Units 20:49 20:50 21:54 ABG pH (7.35-7.45) ABG pCO2 (35-45) mmHg ABG pO2 (83-108) mmHg ABG HCO3 (21-25) mmol/L ABG Total CO2 (19-24) mmol/L ABG O2 Saturation (94-97) % Sodium (137-145) mmol/L Chloride (98-107) mmol/L Carbon Dioxide (22-30) mmol/L BUN (7-17) mg/dL Creatinine (0.52-1.04) mg/dL Glucose (74-99) mg/dL POC Glucose (mg/dL) 454 H 445 H 427 H (75-99) mg/dL Calcium (8.4-10.2) mg/dL 04/23/18 04/23/18 04/24/18 Range/Units 23:08 23:48 00:19 ABG pH (7.35-7.45) ABG pCO2 (35-45) mmHg ABG pO2 (83-108) mmHg ABG HCO3 (21-25) mmol/L ABG Total CO2 (19-24) mmol/L ABG O2 Saturation (94-97) % Sodium (137-145) mmol/L Chloride (98-107) mmol/L Carbon Dioxide (22-30) mmol/L BUN (7-17) mg/dL Creatinine (0.52-1.04) mg/dL Glucose (74-99) mg/dL POC Glucose (mg/dL) 392 H 314 H 265 H (75-99) mg/dL Calcium (8.4-10.2) mg/dL 04/24/18 04/24/18 04/24/18 Range/Units 00:52 03:31 04:33 ABG pH (7.35-7.45) ABG pCO2 (35-45) mmHg ABG pO2 (83-108) mmHg ABG HCO3 (21-25) mmol/L ABG Total CO2 (19-24) mmol/L ABG O2 Saturation (94-97) % Sodium (137-145) mmol/L Chloride (98-107) mmol/L Carbon Dioxide (22-30) mmol/L BUN (7-17) mg/dL Creatinine (0.52-1.04) mg/dL Glucose (74-99) mg/dL POC Glucose (mg/dL) 230 H 158 H 166 H (75-99) mg/dL Calcium (8.4-10.2) mg/dL 04/24/18 04/24/18 04/24/18 Range/Units 05:36 07:29 07:35 ABG pH (7.35-7.45) ABG pCO2 (35-45) mmHg ABG pO2 (83-108) mmHg ABG HCO3 (21-25) mmol/L ABG Total CO2 (19-24) mmol/L ABG O2 Saturation (94-97) % Sodium (137-145) mmol/L Chloride 110 H (98-107) mmol/L Carbon Dioxide 18 L (22-30) mmol/L BUN 61 H (7-17) mg/dL Creatinine 2.90 H (0.52-1.04) mg/dL Glucose 149 H (74-99) mg/dL POC Glucose (mg/dL) 171 H 168 H (75-99) mg/dL Calcium (8.4-10.2) mg/dL 04/24/18 04/24/18 Range/Units 09:21 11:25 ABG pH (7.35-7.45) ABG pCO2 (35-45) mmHg ABG pO2 (83-108) mmHg ABG HCO3 (21-25) mmol/L ABG Total CO2 (19-24) mmol/L ABG O2 Saturation (94-97) % Sodium (137-145) mmol/L Chloride (98-107) mmol/L Carbon Dioxide (22-30) mmol/L BUN (7-17) mg/dL Creatinine (0.52-1.04) mg/dL Glucose (74-99) mg/dL POC Glucose (mg/dL) 317 H 293 H (75-99) mg/dL Calcium (8.4-10.2) mg/dL Microbiology - Last 24 Hours (Table) 04/19/18 17:20 Blood Culture - Preliminary Blood No Growth after 96 hours 04/23/18 03:46 Urine Culture - Preliminary Urine,Voided 04/20/18 12:56 Gram Stain - Final Face Wound Culture - Final Methicillin resist S. aureus Assessment and Plan Assessment: Acute hyperosmolar ketotic diabetic state. , resolving Uncontrolled type 2 diabetes mellitus with hyperglycemia facial cellulitis, sepsis. Present on admission. Status post I and D for her facial abscesses Anemia, iron deficiency anemia History of gastric ulcer History of low vitamin D Mild hyponatremia, corrected for hyperglycemia Chronic kidney disease, stage III, with some elements of acute kidney injury, mostly related to sepsis Elevated troponin History of asthma GERD Essential hypertension Hyperlipidemia History of migraine History of atrial fibrillation Obesity with body mass index of 43.1 Plan: We recommend to continue with the same medication. Continue with symptomatic treatment. Resume home medication. Resume insulin and monitor her sugar level. Continue with antibiotics. Pulmonary/critical care consult is appreciated. senior water resources engineer team evalauted pt for elevated troponin , ID are called for left facial cellulitis and antibiotics adjusted as per their team . Patient status post I and D for her facial abscesses by ENT specialist. We'll call GI consult for iron deficiency anemia: The recommended outpatient follow- up and 10 with conservative management currently. Call pulmonary consult. GI and DVT prophylaxis. Further recommendation the clinical course of the patient.Prognosis is guarded
[2018-04-24 14:23] LABS: Glucose,Whole Blood 294 mg/dL (75-99)
[2018-04-24] MEDS: traMADol 50 MG TAB PO PRN ×2 (14:36→20:10)
[2018-04-24 15:50] LABS: Glucose,Whole Blood 226 mg/dL (75-99)
[2018-04-24 17:06] LABS: Glucose,Whole Blood 194 mg/dL (75-99)
[2018-04-24] MEDS: GABAPENTIN 100 MG CAP PO SCH ×2 (17:47→22:01)
[2018-04-24 19:16] LABS: Glucose,Whole Blood 171 mg/dL (75-99)
[2018-04-24] MEDS: DAPTOmycin 500 MG in SODIUM CHLORIDE 0.9% 50 ML IVPB SCH (19:33)
[2018-04-24 20:53] LABS: Glucose,Whole Blood 137 mg/dL (75-99)
[2018-04-24 22:55] LABS: Glucose,Whole Blood 143 mg/dL (75-99)
--- NOTE | 2018-04-24 23:43 | PN ---
PROGRESS NOTE DATE OF SERVICE: 04/24/2018 REASON FOR FOLLOWUP: Facial abscess and cellulitis, MRSA. INTERVAL HISTORY: The patient is currently afebrile. She is breathing comfortably. Denies significant chest pain or cough. No abdominal pain or any diarrhea. PHYSICAL EXAMINATION: Blood pressure 119/58 with a pulse of 72, temperature 96.7. She is 94% on 4 L nasal cannula. General description is a middle-aged female lying in bed in no distress. HEENT EXAMINATION: The facial area swelling and induration has slightly decreased. No drainage. LUNGS: Unlabored breathing. Clear to auscultation anteriorly. HEART: S1, S2. Regular rate and rhythm. ABDOMEN: Soft. No tenderness. LABS: BUN of 61, creatinine 2.90. DIAGNOSTIC IMPRESSION AND PLAN: Patient with left facial abscess and cellulitis, status post spontaneous drainage. The patient is currently on daptomycin because of her renal insufficiency. Will wait for the kidney function to stabilize before recommending discharge antibiotic. Continue with supportive care. MMODL / IJN: [id number] /
[2018-04-25 01:16] LABS: Glucose,Whole Blood 144 mg/dL (75-99)
[2018-04-25 03:22] LABS: Glucose,Whole Blood 144 mg/dL (75-99)
[2018-04-25] MEDS: traMADol 50 MG TAB PO PRN (03:24)
[2018-04-25 05:05] LABS: Glucose,Whole Blood 156 mg/dL (75-99)
[2018-04-25] MEDS: INSULIN ASPART 100 UNIT/ML 1 ML 10 ML VIAL SQ SCH ×5 (06:58→18:42)
[2018-04-25 07:09] LABS: Glucose,Whole Blood 151 mg/dL (75-99)
[2018-04-25] MEDS: CARVEDILOL 12.5 MG TAB PO SCH ×2 (07:11→18:07)
[2018-04-25] MEDS: FERROUS SULFATE 325 MG TAB PO SCH ×2 (07:11→18:12)
[2018-04-25] MEDS: methylPREDNISolone SOD SUCCI 125 MG/2 ML VIAL IV SCH ×4 (07:11→23:26)
[2018-04-25] MEDS: SYMBICORT 160-4.5 MCG INHALER INHALATION SCH (07:42)
[2018-04-25] MEDS: IPRATROPIUM-ALBUTEROL 3 ML NEB INHALATION SCH ×4 (07:42→20:40)
[2018-04-25 07:57] LABS: Glucose,Whole Blood 141 mg/dL (75-99)
[2018-04-25 09:30] LABS: Glucose,Whole Blood 201 mg/dL (75-99)
[2018-04-25] MEDS: GABAPENTIN 100 MG CAP PO SCH ×3 (09:44→21:10)
[2018-04-25] MEDS: PANTOPRAZOLE 40 MG TABLET PO SCH ×2 (09:44→18:07)
[2018-04-25] MEDS: LORATADINE 10 MG TAB PO SCH (09:44)
[2018-04-25] MEDS: N PO SCH (09:44)
[2018-04-25] MEDS: cloNIDine HCL 0.1 MG TAB PO SCH ×3 (09:44→21:12)
[2018-04-25] MEDS: amLODIPine 10 MG TAB PO SCH (09:44)
[2018-04-25] MEDS: ASPIRIN 81 MG PO SCH (09:44)
[2018-04-25] MEDS: ENOXAPARIN 30 MG/0.3 ML SYRINGE SQ SCH (09:45)
[2018-04-25] MEDS: ERYTHROMYCIN 5 MG/GM OPHTH OINT 3.5 GM TUBE RIGHT EYE SCH ×4 (09:45→21:51)
[2018-04-25] MEDS: MUPIROCIN 2% OINT 22 GM TUBE TOPICAL SCH ×3 (09:45→21:51)
[2018-04-25] MEDS: SODIUM BICARBONATE TAB 650 MG TAB PO SCH ×3 (09:45→21:12)
[2018-04-25 10:40] LABS: Calcium 8.7 mg/dL (8.4-10.2); Potassium 5.1 mmol/L (3.5-5.1)
[2018-04-25 11:28] LABS: Glucose,Whole Blood 167 mg/dL (75-99)
[2018-04-25] MEDS ORDERED: SODIUM BICARB 8.4% 50 ML SYR (1 MEQ/ML) IV ONE (11:45)
--- NOTE | 2018-04-25 11:53 | P.PN ---
Subjective Patient is seen in follow-up for acute kidney injury. Renal function starting to stabilize with creatinine at 2.88 today. Patient's currently being treated for dental abscess. Vancomycin level was high at 24 on April 21 and was changed to daptomycin. She is tolerating soft diet. Admits to good urine output. No vomiting or diarrhea. Hemodynamically stable. Vital signs are stable. General: The patient appeared well nourished and normally developed. HEENT: Head exam is unremarkable. Neck is without jugular venous distension. No obvious drainage noted. LUNGS: Lungs are clear to auscultation and percussion. Breath sounds decreased. HEART: Rate and Rhythm are regular. First and second heart sounds normal. No murmurs, rubs or gallops. ABDOMEN: Abdominal exam reveals normal bowel sounds. Non-tender and non- distended. No evidence of peritonitis. EXTREMITITES: Trace edema. Objective - Vital Signs Vital signs: Vital Signs Temp 97.7 F 04/25/18 08:00 Pulse 67 04/25/18 08:00 Resp 18 04/25/18 04:00 BP 135/62 04/25/18 08:00 Pulse Ox 97 04/25/18 08:00 Intake & Output 04/24/18 04/25/18 04/25/18 18:59 06:59 18:59 Intake Total 897.527 2297.3 378.667 Output Total 700 900 Balance 34.767 265.3 378.667 Weight 119.9 kg 122.6 kg Intake: IV 30 10 Invasive Line 4 30 10 Intake, IV Titration 14.767 175.3 8.667 Amount DAPTOmycin 500 mg In 50 Sodium Chloride 0.9% 50 ml @ 100 mls/hr IVPB Q48H [facility] Rx#:[id number] Insulin Regular 100 unit 14.767 125.3 8.667 In Sodium Chloride 0.9% 100 ml @ Titrate IV .Q0M [facility] Rx#:[id number] Oral 720 960 360 Output: Urine 700 900 Other: Voiding Method Bedpan Bedside Commode Diaper Incontinent # Voids 2 - Labs CBC & Chem 7: 04/23/18 03:20 04/25/18 07:27 Labs: Abnormal Lab Results - Last 24 Hours (Table) 04/24/18 04/24/18 04/24/18 Range/Units 14:12 15:36 16:54 Chloride (98-107) mmol/L Carbon Dioxide (22-30) mmol/L BUN (7-17) mg/dL Creatinine (0.52-1.04) mg/dL Glucose (74-99) mg/dL POC Glucose (mg/dL) 294 H 226 H 194 H (75-99) mg/dL 04/24/18 04/24/18 04/24/18 Range/Units 19:03 20:52 22:43 Chloride (98-107) mmol/L Carbon Dioxide (22-30) mmol/L BUN (7-17) mg/dL Creatinine (0.52-1.04) mg/dL Glucose (74-99) mg/dL POC Glucose (mg/dL) 171 H 137 H 143 H (75-99) mg/dL 04/25/18 04/25/18 04/25/18 Range/Units 01:14 03:20 04:52 Chloride (98-107) mmol/L Carbon Dioxide (22-30) mmol/L BUN (7-17) mg/dL Creatinine (0.52-1.04) mg/dL Glucose (74-99) mg/dL POC Glucose (mg/dL) 144 H 144 H 156 H (75-99) mg/dL 04/25/18 04/25/18 04/25/18 Range/Units 07:07 07:27 07:43 Chloride 109 H (98-107) mmol/L Carbon Dioxide 15 L (22-30) mmol/L BUN 71 H (7-17) mg/dL Creatinine 2.88 H (0.52-1.04) mg/dL Glucose 107 H (74-99) mg/dL POC Glucose (mg/dL) 151 H 141 H (75-99) mg/dL 04/25/18 04/25/18 Range/Units 09:29 11:27 Chloride (98-107) mmol/L Carbon Dioxide (22-30) mmol/L BUN (7-17) mg/dL Creatinine (0.52-1.04) mg/dL Glucose (74-99) mg/dL POC Glucose (mg/dL) 201 H 167 H (75-99) mg/dL Microbiology - Last 24 Hours (Table) 04/19/18 17:20 Blood Culture - Preliminary Blood No Growth after 120 hours 04/23/18 03:46 Urine Culture - Final Urine,Voided Assessment and Plan Plan: Assessment: 1. Nonoliguric acute kidney injury secondary to ATN secondary to infection and component of vancomycin toxicity. Creatinine peaked at 2.9 on April 24 and is 2.88 today. 2. Chronic kidney disease stage III secondary to diabetic kidney disease with baseline creatinine in the range of 1.6-2.4 recently. 3. Facial abscess and cellulitis maintained on antibiotics per infectious disease. Wound culture positive for MRSA. 4. Metabolic acidosis secondary to acute kidney injury. 5. Hypertension with chronic kidney disease. Controlled. 6. Diabetes mellitus. Plan: Maintain sodium bicarbonate 1300 mg 3 times daily. I will give her an amp of bicarb IV push as well. Decreased Neurontin to 100 mg 3 times daily. Continue to hold off on IV fluids and diuretics today. Continue to monitor renal function and urine output. Repeat electrolytes in the morning.
[2018-04-25 13:23] LABS: Glucose,Whole Blood 213 mg/dL (75-99)
[2018-04-25 15:20] LABS: Glucose,Whole Blood 161 mg/dL (75-99)
--- NOTE | 2018-04-25 16:52 | P.PN ---
Subjective This is a pleasant 53 years old female who presents with left Side cheek abscess that is open and draining purulant discharge and failed outpatient treatment with hyperglycemia as high as 1129 on admission. With elevated troponin. Her sodium was low on admission as low as 118, but corrected for hyperglycemia it to be in mid 130s. Patient was treated with fluids and insulin drip. As well as antibiotic. pt today on 04/21 is telling me she started feeling better regarding her facial infection however there is still swelling ,redness and induration , pt is already on antiobiotic iv vancomycin , ID team is been consulted . her sugar is better controlled currently 04/22/2018 Patient spiked fever of 101.2. Left facial infection and discharge. Patient remains on antibiotics per ID team recommendation. We will call ENT for evaluation of her left facial infection. Patient is status post I and D for multiple superficial abscesses. Patient is not emptying well and she has low sugar episode yesterday. We will decrease her insulin to 10 units every morning and 5 units every afternoon. Creatinine is 2.4, nephrology team is been consulted and their input is appreciated. And the recommended to switch antibiotics alert and vancomycin. I explained risk of nephrotoxicity to the patient and she agrees to continue with it if it is indicated Patient with anemia, iron is low at 25, as well as iron saturation is low at 9.5. Check FOBT. Call GI consult, she is been evaluated before by Dr. Guerra for gastric ulcers. Start iron pills 04/23/2018 Patient is more lethargic today, with some respiratory distress and dyspnea. She was desaturating and needed 5 L of oxygen to keep her oxygen level and the mid 90s. Repeat chest x-ray shows improving vascular congestion and edema, no new infiltrate. ABG showed pH 7.4, pCO2 low at 21, pO2 high at 177. Call pulmonary/critical care for reevaluation. Patient is a status post I&D for her multiple facial abscesses. That she's continue on daptomycin as per ID recommendation. Patient has acute kidney injury secondary to sepsis. However her creatinine is close to her baseline and is slightly elevated from 2.43 to 2.59. Baseline creatinine between 1.6-2.4 as patient has diabetic nephropathy. Nephrology input is appreciated. DC IV fluids. Monitor vitals and labs. WBC 12 K. Culture is growing MRSA. 04/24/2018 Patient is fully awake and oriented today, her breathing is quiet. Patient is still have multiple opening wound abscesses with purulent discharge, most of them. Yesterday patient desaturated and she has some pulmonary congestion she received 1 dose of Lasix by the critical care team. Her creatinine went up from 2.5 to 2.9 mostly secondary to infection and Lasix. Baseline creatinine 1.6-2.4 Nephrology team are following the patient. Recommended to discontinue the fluids and diuretics for now. insulin dose is increased . Repeat chest x- ray shows possible bronchitis. Patient had fever yesterday of 100. Saturating 99% on 6 L nasal cannula patient has MRSA wound culture. 04/25/2018 Patient fascial abscesses are drying up and there is less purulent discharge compared to yesterday. She is more awake and she is starting at the bedside. Patient was started on insulin drip. Nephrology recommended to hold fluids and diuretics. Patient on daptomycin because of her kidney disease, vancomycin was discontinued. Creatinine 2.8. Potassium 5.1. Sodium 138 hemoglobin 7.5 Objective - Vital Signs Vital signs: Vital Signs Temp 97.7 F 04/25/18 08:00 Pulse 66 04/25/18 16:36 Resp 14 04/25/18 16:36 BP 124/57 04/25/18 12:00 Pulse Ox 97 04/25/18 12:00 Intake & Output 04/24/18 04/25/18 04/25/18 18:59 06:59 18:59 Intake Total 590.306 7090.3 700.667 Output Total 700 900 Balance 34.767 265.3 700.667 Weight 119.9 kg 122.6 kg Intake: IV 30 10 Invasive Line 4 30 10 Intake, IV Titration 14.767 175.3 8.667 Amount DAPTOmycin 500 mg In 50 Sodium Chloride 0.9% 50 ml @ 100 mls/hr IVPB Q48H [facility] Rx#:[id number] Insulin Regular 100 unit 14.767 125.3 8.667 In Sodium Chloride 0.9% 100 ml @ Titrate IV .Q0M [facility] Rx#:[id number] Oral 720 960 682 Output: Urine 700 900 Other: Voiding Method Bedpan Bedside Commode Bedside Commode Diaper Incontinent # Voids 2 - Exam GENERAL: The patient is alert and oriented x3, patient is more lethargic, not in any acute distress. Well developed, obese -HEENT: Pupils are round and equally reacting to light. EOMI. No scleral icterus. No conjunctival pallor. Normocephalic, atraumatic. No pharyngeal erythema. No thyromegaly. left cheek infection which is opon and there is purulent discharge with small area of underlying induration , CARDIOVASCULAR: S1 and S2 present. No murmurs, rubs, or gallops. PULMONARY: Chest is clear to auscultation, no wheezing or crackles. ABDOMEN: Soft, nontender, nondistended, normoactive bowel sounds. No palpable organomegaly. MUSCULOSKELETAL: No joint swelling or deformity. EXTREMITIES: No cyanosis, clubbing, or pedal edema. NEUROLOGICAL: Gross neurological examination did not reveal any focal deficits. SKIN: No rashes. - Labs CBC & Chem 7: 04/23/18 03:20 04/25/18 07:27 Labs: Abnormal Lab Results - Last 24 Hours (Table) 04/24/18 04/24/18 04/24/18 Range/Units 16:54 19:03 20:52 Chloride (98-107) mmol/L Carbon Dioxide (22-30) mmol/L BUN (7-17) mg/dL Creatinine (0.52-1.04) mg/dL Glucose (74-99) mg/dL POC Glucose (mg/dL) 194 H 171 H 137 H (75-99) mg/dL 04/24/18 04/25/18 04/25/18 Range/Units 22:43 01:14 03:20 Chloride (98-107) mmol/L Carbon Dioxide (22-30) mmol/L BUN (7-17) mg/dL Creatinine (0.52-1.04) mg/dL Glucose (74-99) mg/dL POC Glucose (mg/dL) 143 H 144 H 144 H (75-99) mg/dL 04/25/18 04/25/18 04/25/18 Range/Units 04:52 07:07 07:27 Chloride 109 H (98-107) mmol/L Carbon Dioxide 15 L (22-30) mmol/L BUN 71 H (7-17) mg/dL Creatinine 2.88 H (0.52-1.04) mg/dL Glucose 107 H (74-99) mg/dL POC Glucose (mg/dL) 156 H 151 H (75-99) mg/dL 04/25/18 04/25/18 04/25/18 Range/Units 07:43 09:29 11:27 Chloride (98-107) mmol/L Carbon Dioxide (22-30) mmol/L BUN (7-17) mg/dL Creatinine (0.52-1.04) mg/dL Glucose (74-99) mg/dL POC Glucose (mg/dL) 141 H 201 H 167 H (75-99) mg/dL 04/25/18 04/25/18 Range/Units 13:10 15:07 Chloride (98-107) mmol/L Carbon Dioxide (22-30) mmol/L BUN (7-17) mg/dL Creatinine (0.52-1.04) mg/dL Glucose (74-99) mg/dL POC Glucose (mg/dL) 213 H 161 H (75-99) mg/dL Microbiology - Last 24 Hours (Table) 04/19/18 17:20 Blood Culture - Preliminary Blood No Growth after 120 hours 04/23/18 03:46 Urine Culture - Final Urine,Voided Assessment and Plan Assessment: Acute hyperosmolar ketotic diabetic state. , resolving Uncontrolled type 2 diabetes mellitus with hyperglycemia facial cellulitis, sepsis. Present on admission. Status post I and D for her facial abscesses Anemia, iron deficiency anemia History of gastric ulcer History of low vitamin D Mild hyponatremia, corrected for hyperglycemia Chronic kidney disease, stage III, with some elements of acute kidney injury, mostly related to sepsis Elevated troponin History of asthma GERD Essential hypertension Hyperlipidemia History of migraine History of atrial fibrillation Obesity with body mass index of 43.1 Plan: We recommend to continue with the same medication. Continue with symptomatic treatment. Resume home medication. Resume insulin and monitor her sugar level. Continue with antibiotics. Pulmonary/critical care consult is appreciated. survey and mapping technician team evalauted pt for elevated troponin , ID are called for left facial cellulitis and antibiotics adjusted as per their team . Patient status post I and D for her facial abscesses by ENT specialist. We'll call GI consult for iron deficiency anemia: The recommended outpatient follow- up and 10 with conservative management currently. Call pulmonary consult. GI and DVT prophylaxis. Further recommendation the clinical course of the patient.Prognosis is guarded
[2018-04-25 17:11] LABS: Glucose,Whole Blood 138 mg/dL (75-99)
[2018-04-25] MEDS: HYDROmorphone 1 MG/ML 1 ML SYRINGE IVP PRN (21:01)
[2018-04-25 21:18] LABS: Glucose,Whole Blood 275 mg/dL (75-99)
[2018-04-25] MEDS ORDERED: INSULIN REGULAR BOLUS (FROM DRIP BAG) IV ONE (22:54)
--- NOTE | 2018-04-25 23:32 | PN ---
PROGRESS NOTE DATE OF SERVICE: 04/25/2018 REASON FOR FOLLOWUP: MRSA facial abscess and cellulitis. INTERVAL HISTORY: The patient is currently afebrile. She is breathing comfortably. The facial area swelling and redness have decreased; no drainage. Denies having any chest pain, shortness of breath or cough. No abdominal pain or any diarrhea. PHYSICAL EXAMINATION: Blood pressure 132/71 with a pulse of 68, temperature of 97.1. She is 93% on room air. General description is a middle-aged female up in the bed in no distress. EXAMINATION OF THE FACIAL AREA: The left maxillary and right-sided chin area swelling and redness have improved. No drainage was noticed. LUNGS: Unlabored breathing. Coarse breath sounds bilaterally with a question of wheeze. HEART: S1, S2. Regular rate and rhythm. ABDOMEN: Soft. No tenderness. LABS: No CBC was done today. Her creatinine is up to 2.88 today. DIAGNOSTIC IMPRESSION AND PLAN: Patient with left facial abscess and cellulitis along with a chin area abscess, status post spontaneous drainage. The patient has developed failure, currently on daptomycin. That will be continued for now. Finish therapy with oral antibiotic on discharge. Continue with supportive care. MMODL / IJN: [id number] /
[2018-04-26] MEDS: INSULIN REGULAR 100 UNIT in SODIUM CHLORIDE 0.9% 100 ML IV SCH ×2 (00:09→05:33)
[2018-04-26 00:58] LABS: Glucose,Whole Blood 334 mg/dL (75-99)
[2018-04-26 01:43] LABS: Glucose,Whole Blood 300 mg/dL (75-99)
[2018-04-26 02:23] LABS: Glucose,Whole Blood 270 mg/dL (75-99)
[2018-04-26 03:01] LABS: Glucose,Whole Blood 220 mg/dL (75-99)
[2018-04-26] MEDS: traMADol 50 MG TAB PO PRN (03:06)
[2018-04-26 05:26] LABS: Glucose,Whole Blood 132 mg/dL (75-99)
[2018-04-26 07:09] LABS: Glucose,Whole Blood 94 mg/dL (75-99)
[2018-04-26] MEDS: methylPREDNISolone SOD SUCCI 125 MG/2 ML VIAL IV SCH ×4 (07:09→23:51)
[2018-04-26] MEDS: CARVEDILOL 12.5 MG TAB PO SCH ×2 (07:10→18:17)
[2018-04-26] MEDS: FERROUS SULFATE 325 MG TAB PO SCH ×2 (07:12→18:17)
[2018-04-26] MEDS: INSULIN ASPART 100 UNIT/ML 1 ML 10 ML VIAL SQ SCH ×3 (07:13→18:16)
[2018-04-26] MEDS: PANTOPRAZOLE 40 MG TABLET PO SCH ×2 (07:17→18:17)
[2018-04-26 07:37] LABS: Calcium 8.5 mg/dL (8.4-10.2); Magnesium 2.1 mg/dL (1.6-2.3); Potassium 4.5 mmol/L (3.5-5.1)
[2018-04-26 08:12] LABS: Glucose,Whole Blood 160 mg/dL (75-99)
[2018-04-26] MEDS: SYMBICORT 160-4.5 MCG INHALER INHALATION SCH (08:38)
[2018-04-26] MEDS: IPRATROPIUM-ALBUTEROL 3 ML NEB INHALATION SCH ×4 (08:38→21:33)
[2018-04-26] MEDS ORDERED: SENNOSIDES-DOCUSATE SODIUM 1 EACH TAB PO PRN (08:51)
[2018-04-26] MEDS: LORATADINE 10 MG TAB PO SCH (09:07)
[2018-04-26] MEDS: ERYTHROMYCIN 5 MG/GM OPHTH OINT 3.5 GM TUBE RIGHT EYE SCH ×4 (09:08→21:21)
[2018-04-26] MEDS: N PO SCH (09:08)
[2018-04-26] MEDS: ENOXAPARIN 30 MG/0.3 ML SYRINGE SQ SCH (09:08)
[2018-04-26] MEDS: MUPIROCIN 2% OINT 22 GM TUBE TOPICAL SCH ×3 (09:08→21:20)
[2018-04-26] MEDS: cloNIDine HCL 0.1 MG TAB PO SCH ×3 (09:08→21:20)
[2018-04-26] MEDS: GABAPENTIN 100 MG CAP PO SCH ×3 (09:08→21:20)
[2018-04-26] MEDS: ASPIRIN 81 MG PO SCH (09:08)
[2018-04-26] MEDS: amLODIPine 10 MG TAB PO SCH (09:08)
[2018-04-26] MEDS: SODIUM BICARBONATE TAB 650 MG TAB PO SCH ×3 (09:08→21:20)
[2018-04-26 11:24] LABS: Hemoglobin A1C 8.7 % (4.0-6.0)
--- NOTE | 2018-04-26 11:25 | P.PN ---
Subjective Patient is seen in follow-up for acute kidney injury. Renal function better with creatinine at 2.44 today. Patient's currently being treated for dental abscess. Vancomycin level was high at 24 on April 21 and was changed to daptomycin. She is tolerating soft diet. Admits to good urine output. No vomiting or diarrhea. Hemodynamically stable. Vital signs are stable. General: The patient appeared well nourished and normally developed. HEENT: Head exam is unremarkable. Neck is without jugular venous distension. No obvious drainage noted. LUNGS: Lungs are clear to auscultation and percussion. Breath sounds decreased. HEART: Rate and Rhythm are regular. First and second heart sounds normal. No murmurs, rubs or gallops. ABDOMEN: Abdominal exam reveals normal bowel sounds. Non-tender and non- distended. No evidence of peritonitis. EXTREMITITES: Trace edema. Objective - Vital Signs Vital signs: Vital Signs Temp 97.7 F 04/26/18 08:00 Pulse 68 04/26/18 08:39 Resp 16 04/26/18 08:39 BP 132/65 04/26/18 08:00 Pulse Ox 97 04/26/18 08:39 Intake & Output 04/25/18 04/26/18 04/26/18 18:59 06:59 18:59 Intake Total 392.831 1512.509 8.787 Output Total 700 Balance 922.667 341.509 8.787 Intake: IV 10 20 Invasive Line 4 10 20 Intake, IV Titration 8.667 61.509 8.787 Amount Insulin Regular 100 unit 8.667 In Sodium Chloride 0.9% 100 ml @ Titrate IV .Q0M [facility] Rx#:[id number] Insulin Regular 100 unit 61.509 8.787 In Sodium Chloride 0.9% 100 ml @ Titrate IV .Q0M [facility] Rx#:[id number] Oral 904 960 Output: Urine 700 Other: Voiding Method Bedside Commode Bedside Commode # Voids 3 - Labs CBC & Chem 7: 04/23/18 03:20 04/26/18 06:14 Labs: Abnormal Lab Results - Last 24 Hours (Table) 04/25/18 04/25/18 04/25/18 Range/Units 11:27 13:10 15:07 Carbon Dioxide (22-30) mmol/L BUN (7-17) mg/dL Creatinine (0.52-1.04) mg/dL Glucose (74-99) mg/dL POC Glucose (mg/dL) 167 H 213 H 161 H (75-99) mg/dL 04/25/18 04/25/18 04/26/18 Range/Units 17:09 20:52 00:54 Carbon Dioxide (22-30) mmol/L BUN (7-17) mg/dL Creatinine (0.52-1.04) mg/dL Glucose (74-99) mg/dL POC Glucose (mg/dL) 138 H 275 H 334 H (75-99) mg/dL 04/26/18 04/26/18 04/26/18 Range/Units 01:34 02:06 02:59 Carbon Dioxide (22-30) mmol/L BUN (7-17) mg/dL Creatinine (0.52-1.04) mg/dL Glucose (74-99) mg/dL POC Glucose (mg/dL) 300 H 270 H 220 H (75-99) mg/dL 04/26/18 04/26/18 04/26/18 Range/Units 05:07 06:14 08:10 Carbon Dioxide 19 L (22-30) mmol/L BUN 76 H (7-17) mg/dL Creatinine 2.44 H (0.52-1.04) mg/dL Glucose 102 H (74-99) mg/dL POC Glucose (mg/dL) 132 H 160 H (75-99) mg/dL Microbiology - Last 24 Hours (Table) 04/19/18 17:20 Blood Culture - Final Blood No Growth after 144 hours Assessment and Plan Plan: Assessment: 1. Nonoliguric acute kidney injury secondary to ATN secondary to infection and component of vancomycin toxicity. Creatinine peaked at 2.9 on April 24 and is 2.44 today. 2. Chronic kidney disease stage III secondary to diabetic kidney disease with baseline creatinine in the range of 1.6-2.4 recently. 3. Facial abscess and cellulitis maintained on antibiotics per infectious disease. Wound culture positive for MRSA. 4. Metabolic acidosis secondary to acute kidney injury. 5. Hypertension with chronic kidney disease. Controlled. 6. Diabetes mellitus. Plan: Maintain sodium bicarbonate 1300 mg 3 times daily. Decreased Neurontin to 100 mg 3 times daily. Continue to hold off on IV fluids and diuretics for now. Continue to monitor renal function and urine output. Repeat electrolytes in the morning.
[2018-04-26 11:50] LABS: Glucose,Whole Blood 127 mg/dL (75-99)
[2018-04-26 13:29] LABS: Glucose,Whole Blood 188 mg/dL (75-99)
[2018-04-26 15:52] LABS: Glucose,Whole Blood 145 mg/dL (75-99)
[2018-04-26] MEDS: DAPTOmycin 500 MG in SODIUM CHLORIDE 0.9% 50 ML IVPB SCH (18:12)
[2018-04-26 18:28] LABS: Glucose,Whole Blood 136 mg/dL (75-99)
[2018-04-26 20:03] LABS: Glucose,Whole Blood 151 mg/dL (75-99)
[2018-04-26] MEDS: HYDROmorphone 1 MG/ML 1 ML SYRINGE IVP PRN (21:19)
--- NOTE | 2018-04-26 21:55 | P.PN ---
Subjective This is a pleasant 53 years old female who presents with left Side cheek abscess that is open and draining purulant discharge and failed outpatient treatment with hyperglycemia as high as 1129 on admission. With elevated troponin. Her sodium was low on admission as low as 118, but corrected for hyperglycemia it to be in mid 130s. Patient was treated with fluids and insulin drip. As well as antibiotic. pt today on 04/21 is telling me she started feeling better regarding her facial infection however there is still swelling ,redness and induration , pt is already on antiobiotic iv vancomycin , ID team is been consulted . her sugar is better controlled currently 04/22/2018 Patient spiked fever of 101.2. Left facial infection and discharge. Patient remains on antibiotics per ID team recommendation. We will call ENT for evaluation of her left facial infection. Patient is status post I and D for multiple superficial abscesses. Patient is not emptying well and she has low sugar episode yesterday. We will decrease her insulin to 10 units every morning and 5 units every afternoon. Creatinine is 2.4, nephrology team is been consulted and their input is appreciated. And the recommended to switch antibiotics alert and vancomycin. I explained risk of nephrotoxicity to the patient and she agrees to continue with it if it is indicated Patient with anemia, iron is low at 25, as well as iron saturation is low at 9.5. Check FOBT. Call GI consult, she is been evaluated before by Dr. Guerra for gastric ulcers. Start iron pills 04/23/2018 Patient is more lethargic today, with some respiratory distress and dyspnea. She was desaturating and needed 5 L of oxygen to keep her oxygen level and the mid 90s. Repeat chest x-ray shows improving vascular congestion and edema, no new infiltrate. ABG showed pH 7.4, pCO2 low at 21, pO2 high at 177. Call pulmonary/critical care for reevaluation. Patient is a status post I&D for her multiple facial abscesses. That she's continue on daptomycin as per ID recommendation. Patient has acute kidney injury secondary to sepsis. However her creatinine is close to her baseline and is slightly elevated from 2.43 to 2.59. Baseline creatinine between 1.6-2.4 as patient has diabetic nephropathy. Nephrology input is appreciated. DC IV fluids. Monitor vitals and labs. WBC 12 K. Culture is growing MRSA. 04/24/2018 Patient is fully awake and oriented today, her breathing is quiet. Patient is still have multiple opening wound abscesses with purulent discharge, most of them. Yesterday patient desaturated and she has some pulmonary congestion she received 1 dose of Lasix by the critical care team. Her creatinine went up from 2.5 to 2.9 mostly secondary to infection and Lasix. Baseline creatinine 1.6-2.4 Nephrology team are following the patient. Recommended to discontinue the fluids and diuretics for now. insulin dose is increased . Repeat chest x- ray shows possible bronchitis. Patient had fever yesterday of 100. Saturating 99% on 6 L nasal cannula patient has MRSA wound culture. 04/25/2018 Patient fascial abscesses are drying up and there is less purulent discharge compared to yesterday. She is more awake and she is starting at the bedside. Patient was started on insulin drip. Nephrology recommended to hold fluids and diuretics. Patient on daptomycin because of her kidney disease, vancomycin was discontinued. Creatinine 2.8. Potassium 5.1. Sodium 138 hemoglobin 7.5 04/26/2018 pt is feeling better today , her face wound are improving , with less discharge. she remains on daptomycin for MRSA. pt complaining from constipation today , started on colace and senna. sugar is controlled. pt has no more fever since 04/23. wbc: 12 K creatinine is improving and down to 2.4. HB: 7.5. ID and nephrology follow up is appreciated. Objective - Vital Signs Vital signs: Vital Signs Temp 97.5 F L 04/26/18 20:00 Pulse 67 04/26/18 21:43 Resp 20 04/26/18 20:00 BP 171/76 04/26/18 20:00 Pulse Ox 97 04/26/18 20:00 Intake & Output 04/26/18 04/26/18 04/27/18 06:59 18:59 06:59 Intake Total 1041.509 558.948 242.576 Output Total 700 Balance 341.509 558.948 242.576 Weight 126.184 kg Intake: IV 20 Invasive Line 4 20 Intake, IV Titration 61.509 38.948 2.576 Amount Insulin Regular 100 unit 61.509 38.948 2.576 In Sodium Chloride 0.9% 100 ml @ Titrate IV .Q0M [facility] Rx#:[id number] Oral 960 520 240 Output: Urine 700 Other: Voiding Method Bedside Commode Bedside Commode # Voids 3 - Exam GENERAL: The patient is alert and oriented x3, patient is more lethargic, not in any acute distress. Well developed, obese -HEENT: Pupils are round and equally reacting to light. EOMI. No scleral icterus. No conjunctival pallor. Normocephalic, atraumatic. No pharyngeal erythema. No thyromegaly. left cheek infection which is opon and there is purulent discharge with small area of underlying induration , CARDIOVASCULAR: S1 and S2 present. No murmurs, rubs, or gallops. PULMONARY: Chest is clear to auscultation, no wheezing or crackles. ABDOMEN: Soft, nontender, nondistended, normoactive bowel sounds. No palpable organomegaly. MUSCULOSKELETAL: No joint swelling or deformity. EXTREMITIES: No cyanosis, clubbing, or pedal edema. NEUROLOGICAL: Gross neurological examination did not reveal any focal deficits. SKIN: No rashes. - Labs CBC & Chem 7: 04/23/18 03:20 04/26/18 06:14 Labs: Abnormal Lab Results - Last 24 Hours (Table) 04/26/18 04/26/18 04/26/18 Range/Units 00:54 01:34 02:06 Carbon Dioxide (22-30) mmol/L BUN (7-17) mg/dL Creatinine (0.52-1.04) mg/dL Glucose (74-99) mg/dL POC Glucose (mg/dL) 334 H 300 H 270 H (75-99) mg/dL Hemoglobin A1c (4.0-6.0) % 04/26/18 04/26/18 04/26/18 Range/Units 02:59 05:07 06:14 Carbon Dioxide 19 L (22-30) mmol/L BUN 76 H (7-17) mg/dL Creatinine 2.44 H (0.52-1.04) mg/dL Glucose 102 H (74-99) mg/dL POC Glucose (mg/dL) 220 H 132 H (75-99) mg/dL Hemoglobin A1c (4.0-6.0) % 04/26/18 04/26/18 04/26/18 Range/Units 06:14 08:10 11:46 Carbon Dioxide (22-30) mmol/L BUN (7-17) mg/dL Creatinine (0.52-1.04) mg/dL Glucose (74-99) mg/dL POC Glucose (mg/dL) 160 H 127 H (75-99) mg/dL Hemoglobin A1c 8.7 H (4.0-6.0) % 04/26/18 04/26/18 04/26/18 Range/Units 13:27 15:48 18:08 Carbon Dioxide (22-30) mmol/L BUN (7-17) mg/dL Creatinine (0.52-1.04) mg/dL Glucose (74-99) mg/dL POC Glucose (mg/dL) 188 H 145 H 136 H (75-99) mg/dL Hemoglobin A1c (4.0-6.0) % 04/26/18 Range/Units 20:02 Carbon Dioxide (22-30) mmol/L BUN (7-17) mg/dL Creatinine (0.52-1.04) mg/dL Glucose (74-99) mg/dL POC Glucose (mg/dL) 151 H (75-99) mg/dL Hemoglobin A1c (4.0-6.0) % Microbiology - Last 24 Hours (Table) 04/19/18 17:20 Blood Culture - Final Blood No Growth after 144 hours Assessment and Plan Assessment: Acute hyperosmolar ketotic diabetic state. , resolving Uncontrolled type 2 diabetes mellitus with hyperglycemia facial cellulitis, sepsis. Present on admission. Status post I and D for her facial abscesses Anemia, iron deficiency anemia History of gastric ulcer History of low vitamin D Mild hyponatremia, corrected for hyperglycemia Chronic kidney disease, stage III, with some elements of acute kidney injury, mostly related to sepsis Elevated troponin History of asthma GERD Essential hypertension Hyperlipidemia History of migraine History of atrial fibrillation Obesity with body mass index of 43.1 Plan: We recommend to continue with the same medication. Continue with symptomatic treatment. Resume home medication. Resume insulin and monitor her sugar level. Continue with antibiotics. Pulmonary/critical care consult is appreciated. mechanical product design engineer team evalauted pt for elevated troponin , ID are called for left facial cellulitis and antibiotics adjusted as per their team . Patient status post I and D for her facial abscesses by ENT specialist. We'll call GI consult for iron deficiency anemia: The recommended outpatient follow- up and 10 with conservative management currently. Call pulmonary consult. GI and DVT prophylaxis. Further recommendation the clinical course of the patient.Prognosis is guarded
[2018-04-26 22:06] LABS: Glucose,Whole Blood 128 mg/dL (75-99)
[2018-04-26 23:09] LABS: Glucose,Whole Blood 137 mg/dL (75-99)
--- NOTE | 2018-04-26 23:36 | PN ---
PROGRESS NOTE DATE OF SERVICE: 04/26/2018. REASON FOR FOLLOW UP: A facial abscess and cellulitis MRSA. INTERVAL HISTORY: The patient is currently afebrile. She is breathing comfortably. Overall pain to the left cheek and chin area has decreased. No drainage. Her breathing has improved. No significant chest pain, cough, no abdominal pain or any diarrhea. EXAMINATION: Blood pressure 171/76, pulse of 66, temperature 97.5. She is 97% on room air. General description is a middle aged female up in the chair in no distress. HEENT examination: The facial area swelling and redness has decreased, no drainage. Lungs unlabored breathing with decreased breath sounds at the bases. No wheezes. Heart S1, S2. Regular rate and rhythm. Abdomen soft. No tenderness. LABS: Creatinine is 2.44. DIAGNOSTIC IMPRESSION AND PLAN: Patient with left maxillary and chin area abscess, status post spontaneous drainage. Culture positive for MRSA. The patient is currently covered with daptomycin, transitioning to oral antibiotic on discharge. Continue supportive care. MMODL / IJN: [id number] /
[2018-04-27 01:05] LABS: Glucose,Whole Blood 133 mg/dL (75-99)
[2018-04-27 03:07] LABS: Glucose,Whole Blood 134 mg/dL (75-99)
[2018-04-27 05:23] LABS: Glucose,Whole Blood 166 mg/dL (75-99)
[2018-04-27] MEDS: PANTOPRAZOLE 40 MG TABLET PO SCH ×2 (06:50→17:10)
[2018-04-27] MEDS: CARVEDILOL 12.5 MG TAB PO SCH ×2 (06:50→17:11)
[2018-04-27] MEDS: FERROUS SULFATE 325 MG TAB PO SCH ×2 (06:50→17:10)
[2018-04-27] MEDS: methylPREDNISolone SOD SUCCI 125 MG/2 ML VIAL IV SCH ×3 (06:50→17:20)
[2018-04-27 07:25] LABS: Glucose,Whole Blood 145 mg/dL (75-99)
[2018-04-27 07:29] LABS: Calcium 8.7 mg/dL (8.4-10.2); Potassium 4.7 mmol/L (3.5-5.1)
[2018-04-27] MEDS: ERYTHROMYCIN 5 MG/GM OPHTH OINT 3.5 GM TUBE RIGHT EYE SCH ×4 (08:06→21:41)
[2018-04-27] MEDS: cloNIDine HCL 0.1 MG TAB PO SCH ×3 (08:06→22:06)
[2018-04-27] MEDS: ENOXAPARIN 30 MG/0.3 ML SYRINGE SQ SCH (08:06)
[2018-04-27] MEDS: N PO SCH (08:06)
[2018-04-27] MEDS: amLODIPine 10 MG TAB PO SCH (08:06)
[2018-04-27] MEDS: INSULIN ASPART 100 UNIT/ML 1 ML 10 ML VIAL SQ SCH ×5 (08:06→21:46)
[2018-04-27] MEDS: ASPIRIN 81 MG PO SCH (08:06)
[2018-04-27] MEDS: LORATADINE 10 MG TAB PO SCH (08:07)
[2018-04-27] MEDS: MUPIROCIN 2% OINT 22 GM TUBE TOPICAL SCH ×2 (08:07→17:11)
[2018-04-27] MEDS: GABAPENTIN 100 MG CAP PO SCH ×3 (08:07→22:06)
[2018-04-27] MEDS: SODIUM BICARBONATE TAB 650 MG TAB PO SCH ×3 (08:07→22:06)
[2018-04-27] MEDS: IPRATROPIUM-ALBUTEROL 3 ML NEB INHALATION SCH ×4 (08:19→20:27)
[2018-04-27] MEDS: SYMBICORT 160-4.5 MCG INHALER INHALATION SCH (08:19)
[2018-04-27] MEDS ORDERED: SENNOSIDES-DOCUSATE SODIUM 1 EACH TAB PO PRN (09:07)
[2018-04-27 09:26] LABS: Glucose,Whole Blood 231 mg/dL (75-99)
[2018-04-27 11:34] LABS: Glucose,Whole Blood 203 mg/dL (75-99)
--- NOTE | 2018-04-27 15:18 | P.PN ---
Subjective Patient is seen in follow-up for acute kidney injury. Renal function better with creatinine at 2.28 today. Patient's currently being treated for dental abscess. Vancomycin level was high at 24 on April 21 and was changed to daptomycin. She is tolerating soft diet. Admits to good urine output. No vomiting or diarrhea. Hemodynamically stable. No active complaints at this time. Vital signs are stable. General: The patient appeared well nourished and normally developed. HEENT: Head exam is unremarkable. Neck is without jugular venous distension. No obvious drainage noted. LUNGS: Lungs are clear to auscultation and percussion. Breath sounds decreased. HEART: Rate and Rhythm are regular. First and second heart sounds normal. No murmurs, rubs or gallops. ABDOMEN: Abdominal exam reveals normal bowel sounds. Non-tender and non- distended. No evidence of peritonitis. EXTREMITITES: Trace edema. Objective - Vital Signs Vital signs: Vital Signs Temp 98.2 F 04/27/18 13:49 Pulse 66 04/27/18 13:49 Resp 18 04/27/18 13:49 BP 129/76 04/27/18 13:49 Pulse Ox 97 04/27/18 13:49 Intake & Output 04/26/18 04/27/18 04/27/18 18:59 06:59 18:59 Intake Total 558.948 672.664 367.237 Balance 558.948 672.664 367.237 Weight 126.6 kg Intake: Intake, IV Titration 38.948 12.664 7.237 Amount Insulin Regular 100 unit 38.948 12.664 7.237 In Sodium Chloride 0.9% 100 ml @ Titrate IV .Q0M [facility] Rx#:[id number] Oral 520 660 360 Other: Voiding Method Bedside Commode Bedside Commode # Voids 2 - Labs CBC & Chem 7: 04/23/18 03:20 04/27/18 06:27 Labs: Abnormal Lab Results - Last 24 Hours (Table) 04/26/18 04/26/18 04/26/18 Range/Units 15:48 18:08 20:02 Chloride (98-107) mmol/L Carbon Dioxide (22-30) mmol/L BUN (7-17) mg/dL Creatinine (0.52-1.04) mg/dL Glucose (74-99) mg/dL POC Glucose (mg/dL) 145 H 136 H 151 H (75-99) mg/dL 04/26/18 04/26/18 04/27/18 Range/Units 22:05 23:07 01:03 Chloride (98-107) mmol/L Carbon Dioxide (22-30) mmol/L BUN (7-17) mg/dL Creatinine (0.52-1.04) mg/dL Glucose (74-99) mg/dL POC Glucose (mg/dL) 128 H 137 H 133 H (75-99) mg/dL 04/27/18 04/27/18 04/27/18 Range/Units 03:04 05:02 06:27 Chloride 108 H (98-107) mmol/L Carbon Dioxide 21 L (22-30) mmol/L BUN 75 H (7-17) mg/dL Creatinine 2.28 H (0.52-1.04) mg/dL Glucose 141 H (74-99) mg/dL POC Glucose (mg/dL) 134 H 166 H (75-99) mg/dL 04/27/18 04/27/18 04/27/18 Range/Units 07:05 09:06 11:32 Chloride (98-107) mmol/L Carbon Dioxide (22-30) mmol/L BUN (7-17) mg/dL Creatinine (0.52-1.04) mg/dL Glucose (74-99) mg/dL POC Glucose (mg/dL) 145 H 231 H 203 H (75-99) mg/dL Assessment and Plan Plan: Assessment: 1. Nonoliguric acute kidney injury secondary to ATN secondary to infection and component of vancomycin toxicity. Creatinine peaked at 2.9 on April 24 and is 2.28 today. 2. Chronic kidney disease stage III secondary to diabetic kidney disease with baseline creatinine in the range of 1.6-2.4 recently. 3. Facial abscess and cellulitis maintained on antibiotics per infectious disease. Wound culture positive for MRSA. 4. Metabolic acidosis secondary to acute kidney injury. Better. 5. Hypertension with chronic kidney disease. Controlled. 6. Diabetes mellitus. Plan: Maintain sodium bicarbonate 1300 mg 3 times daily. Decreased Neurontin to 100 mg 3 times daily. Continue to hold off on IV fluids and diuretics for now. Continue to monitor renal function and urine output. Repeat electrolytes in the morning.
[2018-04-27] MEDS: INSULN ASP PRT/INSULIN ASPART 100 UNIT/ML 10 ML VIAL SQ SCH (17:18)
[2018-04-27 17:20] LABS: Glucose,Whole Blood 275 mg/dL (75-99)
[2018-04-27 20:31] LABS: Glucose,Whole Blood 369 mg/dL (75-99)
--- NOTE | 2018-04-27 23:08 | P.PN ---
Subjective This is a pleasant 53 years old female who presents with left Side cheek abscess that is open and draining purulant discharge and failed outpatient treatment with hyperglycemia as high as 1129 on admission. With elevated troponin. Her sodium was low on admission as low as 118, but corrected for hyperglycemia it to be in mid 130s. Patient was treated with fluids and insulin drip. As well as antibiotic. pt today on 04/21 is telling me she started feeling better regarding her facial infection however there is still swelling ,redness and induration , pt is already on antiobiotic iv vancomycin , ID team is been consulted . her sugar is better controlled currently 04/22/2018 Patient spiked fever of 101.2. Left facial infection and discharge. Patient remains on antibiotics per ID team recommendation. We will call ENT for evaluation of her left facial infection. Patient is status post I and D for multiple superficial abscesses. Patient is not emptying well and she has low sugar episode yesterday. We will decrease her insulin to 10 units every morning and 5 units every afternoon. Creatinine is 2.4, nephrology team is been consulted and their input is appreciated. And the recommended to switch antibiotics alert and vancomycin. I explained risk of nephrotoxicity to the patient and she agrees to continue with it if it is indicated Patient with anemia, iron is low at 25, as well as iron saturation is low at 9.5. Check FOBT. Call GI consult, she is been evaluated before by Dr. Guerra for gastric ulcers. Start iron pills 04/23/2018 Patient is more lethargic today, with some respiratory distress and dyspnea. She was desaturating and needed 5 L of oxygen to keep her oxygen level and the mid 90s. Repeat chest x-ray shows improving vascular congestion and edema, no new infiltrate. ABG showed pH 7.4, pCO2 low at 21, pO2 high at 177. Call pulmonary/critical care for reevaluation. Patient is a status post I&D for her multiple facial abscesses. That she's continue on daptomycin as per ID recommendation. Patient has acute kidney injury secondary to sepsis. However her creatinine is close to her baseline and is slightly elevated from 2.43 to 2.59. Baseline creatinine between 1.6-2.4 as patient has diabetic nephropathy. Nephrology input is appreciated. DC IV fluids. Monitor vitals and labs. WBC 12 K. Culture is growing MRSA. 04/24/2018 Patient is fully awake and oriented today, her breathing is quiet. Patient is still have multiple opening wound abscesses with purulent discharge, most of them. Yesterday patient desaturated and she has some pulmonary congestion she received 1 dose of Lasix by the critical care team. Her creatinine went up from 2.5 to 2.9 mostly secondary to infection and Lasix. Baseline creatinine 1.6-2.4 Nephrology team are following the patient. Recommended to discontinue the fluids and diuretics for now. insulin dose is increased . Repeat chest x- ray shows possible bronchitis. Patient had fever yesterday of 100. Saturating 99% on 6 L nasal cannula patient has MRSA wound culture. 04/25/2018 Patient fascial abscesses are drying up and there is less purulent discharge compared to yesterday. She is more awake and she is starting at the bedside. Patient was started on insulin drip. Nephrology recommended to hold fluids and diuretics. Patient on daptomycin because of her kidney disease, vancomycin was discontinued. Creatinine 2.8. Potassium 5.1. Sodium 138 hemoglobin 7.5 04/26/2018 pt is feeling better today , her face wound are improving , with less discharge. she remains on daptomycin for MRSA. pt complaining from constipation today , started on colace and senna. sugar is controlled. pt has no more fever since 04/23. wbc: 12 K went down to normal at 7.9 today , creatinine is improving and down to 2.4. HB: 7.5. ID and nephrology follow up is appreciated. 04/27/2018 pt continue to improve , her face and chin wound becoming more dry and healing with less discharge. he remains on daptomycin for MRSA. pt complaining from constipation and he senicot dose is increased. sugar is controlled. pt has no more fever since 04/23. wbc: 12 K creatinine is improving and down to 2.4. HB: 7.5.f,u CBC. ID and nephrology follow up is appreciated. her insulin drip was switched to he usual insulin regiment Objective - Vital Signs Vital signs: Vital Signs Temp 98.2 F 04/27/18 13:49 Pulse 72 04/27/18 20:45 Resp 18 04/27/18 15:32 BP 129/76 04/27/18 13:49 Pulse Ox 98 04/27/18 20:27 Intake & Output 04/27/18 04/27/18 04/28/18 06:59 18:59 06:59 Intake Total 672.664 367.237 Balance 672.664 367.237 Weight 126.6 kg Intake: Intake, IV Titration 12.664 7.237 Amount Insulin Regular 100 unit 12.664 7.237 In Sodium Chloride 0.9% 100 ml @ Titrate IV .Q0M [facility] Rx#:[id number] Oral 660 360 Other: Voiding Method Bedside Commode # Voids 2 - Exam GENERAL: The patient is alert and oriented x3, patient is more lethargic, not in any acute distress. Well developed, obese -HEENT: Pupils are round and equally reacting to light. EOMI. No scleral icterus. No conjunctival pallor. Normocephalic, atraumatic. No pharyngeal erythema. No thyromegaly. left cheek infection which is opon and there is purulent discharge with small area of underlying induration , CARDIOVASCULAR: S1 and S2 present. No murmurs, rubs, or gallops. PULMONARY: Chest is clear to auscultation, no wheezing or crackles. ABDOMEN: Soft, nontender, nondistended, normoactive bowel sounds. No palpable organomegaly. MUSCULOSKELETAL: No joint swelling or deformity. EXTREMITIES: No cyanosis, clubbing, or pedal edema. NEUROLOGICAL: Gross neurological examination did not reveal any focal deficits. SKIN: No rashes. - Labs CBC & Chem 7: 04/23/18 03:20 04/27/18 06:27 Labs: Abnormal Lab Results - Last 24 Hours (Table) 04/26/18 04/27/18 04/27/18 Range/Units 23:07 01:03 03:04 Chloride (98-107) mmol/L Carbon Dioxide (22-30) mmol/L BUN (7-17) mg/dL Creatinine (0.52-1.04) mg/dL Glucose (74-99) mg/dL POC Glucose (mg/dL) 137 H 133 H 134 H (75-99) mg/dL 04/27/18 04/27/18 04/27/18 Range/Units 05:02 06:27 07:05 Chloride 108 H (98-107) mmol/L Carbon Dioxide 21 L (22-30) mmol/L BUN 75 H (7-17) mg/dL Creatinine 2.28 H (0.52-1.04) mg/dL Glucose 141 H (74-99) mg/dL POC Glucose (mg/dL) 166 H 145 H (75-99) mg/dL 04/27/18 04/27/18 04/27/18 Range/Units 09:06 11:32 17:18 Chloride (98-107) mmol/L Carbon Dioxide (22-30) mmol/L BUN (7-17) mg/dL Creatinine (0.52-1.04) mg/dL Glucose (74-99) mg/dL POC Glucose (mg/dL) 231 H 203 H 275 H (75-99) mg/dL 04/27/18 Range/Units 20:18 Chloride (98-107) mmol/L Carbon Dioxide (22-30) mmol/L BUN (7-17) mg/dL Creatinine (0.52-1.04) mg/dL Glucose (74-99) mg/dL POC Glucose (mg/dL) 369 H (75-99) mg/dL Assessment and Plan Assessment: Acute hyperosmolar ketotic diabetic state. , resolving Uncontrolled type 2 diabetes mellitus with hyperglycemia facial cellulitis, sepsis. Present on admission. Status post I and D for her facial abscesses Anemia, iron deficiency anemia History of gastric ulcer History of low vitamin D Mild hyponatremia, corrected for hyperglycemia Chronic kidney disease, stage III, with some elements of acute kidney injury, mostly related to sepsis Elevated troponin History of asthma GERD Essential hypertension Hyperlipidemia History of migraine History of atrial fibrillation Obesity with body mass index of 43.1 Plan: We recommend to continue with the same medication. Continue with symptomatic treatment. Resume home medication. Resume insulin and monitor her sugar level. Continue with antibiotics. Pulmonary/critical care consult is appreciated. business analyst project manager team evalauted pt for elevated troponin , ID are called for left facial cellulitis and antibiotics adjusted as per their team . Patient status post I and D for her facial abscesses by ENT specialist. We'll call GI consult for iron deficiency anemia: The recommended outpatient follow- up and 10 with conservative management currently. Call pulmonary consult. GI and DVT prophylaxis. Further recommendation the clinical course of the patient.Prognosis is guarded
[2018-04-27 23:18] LABS: Basophils % (A) 0 %; Eosinophils # (A) 0.1 k/uL (0-0.7); Eosinophils % (A) 1 %; HCT 24.9 % (34.0-46.0); HGB 7.6 gm/dL (11.4-16.0); Hypochromasia Moderate; Lymphocytes # (A) 0.2 k/uL (1.0-4.8); Lymphocytes % (A) 3 %; MCH 28.9 pg (25.0-35.0); MCHC 30.5 g/dL (31.0-37.0); Mean Platelet Volume 8.4; Monocytes # (A) 0.2 k/uL (0-1.0); Monocytes % (A) 3 %; Neutrophils % (A) 93 %; Platelet Count 300 k/uL (150-450); RBC 2.62 m/uL (3.80-5.40); RDW 15.4 % (11.5-15.5); WBC 7.5 k/uL (3.8-10.6)
[2018-04-27 23:32] LABS: MCV 94.8 fL (80.0-100.0)
[2018-04-28] MEDS: methylPREDNISolone SOD SUCCI 125 MG/2 ML VIAL IV SCH ×2 (00:01→06:47)
[2018-04-28] MEDS: MUPIROCIN 2% OINT 22 GM TUBE TOPICAL SCH ×4 (00:02→20:54)
[2018-04-28] MEDS ORDERED: INSULN ASP PRT/INSULIN ASPART 100 UNIT/ML 10 ML VIAL SQ SCH (07:30)
[2018-04-28 07:40] LABS: Glucose,Whole Blood 321 mg/dL (75-99)
[2018-04-28] MEDS: IPRATROPIUM-ALBUTEROL 3 ML NEB INHALATION SCH ×4 (07:54→19:19)
[2018-04-28] MEDS: SYMBICORT 160-4.5 MCG INHALER INHALATION SCH (07:54)
--- NOTE | 2018-04-28 07:56 | PN ---
PROGRESS NOTE DATE OF SERVICE: 04/27/2018. REASON FOR FOLLOW UP: MRSA facial abscess and cellulitis. INTERVAL HISTORY: The patient is currently afebrile. She is breathing comfortably. Denies having any chest pain, shortness of breath or cough. No further drainage from the facial lesion has been noticed or any diarrhea. EXAMINATION: Blood pressure is 129/76, pulse of 66, temperature 98.2. She is 92% on room air. General description is a middle-aged female up in the bed in no distress. HEENT examination: The lesion has crusted up with no redness or any drainage. Lungs: Unlabored breathing, clear to auscultation. Heart S1, S2. Regular rate and rhythm. ABDOMEN: Soft. No tenderness. LABS: BUN of 75, creatinine is 0.28. DIAGNOSTIC IMPRESSION AND PLAN: Patient with MRSA facial abscess and cellulitis with spontaneous drainage. Plan to finish therapy with oral doxycycline 100 mg twice a day for a week with close outpatient followup. Questions and concerns have been answered. MMODL / IJN: [id number] /
[2018-04-28] MEDS: INSULIN ASPART 100 UNIT/ML 1 ML 10 ML VIAL SQ SCH ×4 (08:28→22:19)
[2018-04-28] MEDS: ENOXAPARIN 30 MG/0.3 ML SYRINGE SQ SCH (08:28)
[2018-04-28] MEDS: SODIUM BICARBONATE TAB 650 MG TAB PO SCH ×3 (08:28→20:54)
[2018-04-28] MEDS: PANTOPRAZOLE 40 MG TABLET PO SCH ×2 (08:28→16:38)
[2018-04-28] MEDS: ASPIRIN 81 MG PO SCH (08:28)
[2018-04-28] MEDS: LORATADINE 10 MG TAB PO SCH (08:28)
[2018-04-28] MEDS: GABAPENTIN 100 MG CAP PO SCH ×3 (08:29→20:54)
[2018-04-28] MEDS: CARVEDILOL 12.5 MG TAB PO SCH ×2 (08:29→16:29)
[2018-04-28] MEDS: amLODIPine 10 MG TAB PO SCH (08:29)
[2018-04-28] MEDS: FERROUS SULFATE 325 MG TAB PO SCH ×2 (08:29→16:29)
[2018-04-28] MEDS: cloNIDine HCL 0.1 MG TAB PO SCH ×3 (08:29→20:54)
[2018-04-28] MEDS: N PO SCH (08:29)
[2018-04-28] MEDS: ERYTHROMYCIN 5 MG/GM OPHTH OINT 3.5 GM TUBE RIGHT EYE SCH ×4 (08:30→20:54)
[2018-04-28 08:58] LABS: Calcium 8.9 mg/dL (8.4-10.2); Potassium 4.7 mmol/L (3.5-5.1)
[2018-04-28 09:08] LABS: Basophils % (A) 0 %; Eosinophils % (A) 0 %; HCT 24.8 % (34.0-46.0); Hypochromasia Slight; Lymphocytes # (A) 0.3 k/uL (1.0-4.8); Lymphocytes % (A) 3 %; MCH 29.4 pg (25.0-35.0); MCHC 32.3 g/dL (31.0-37.0); Mean Platelet Volume 6.9; Monocytes # (A) 0.3 k/uL (0-1.0); Monocytes % (A) 4 %; Neutrophils # (A) 7.1 k/uL (1.3-7.7); Neutrophils % (A) 92 %; Platelet Count 342 k/uL (150-450); RBC 2.73 m/uL (3.80-5.40); WBC 7.8 k/uL (3.8-10.6)
--- NOTE | 2018-04-28 10:17 | P.PN ---
Subjective Patient is seen in follow-up for acute kidney injury. Renal function better with creatinine at 2.17 today. Patient's currently being treated for dental abscess. Vancomycin level was high at 24 on April 21 and was changed to daptomycin. She is tolerating soft diet. Admits to good urine output. No vomiting or diarrhea. Hemodynamically stable. No active complaints at this time. Eager to go home. Vital signs are stable. General: The patient appeared well nourished and normally developed. HEENT: Head exam is unremarkable. Neck is without jugular venous distension. No obvious drainage noted. LUNGS: Lungs are clear to auscultation and percussion. Breath sounds decreased. HEART: Rate and Rhythm are regular. First and second heart sounds normal. No murmurs, rubs or gallops. ABDOMEN: Abdominal exam reveals normal bowel sounds. Non-tender and non- distended. No evidence of peritonitis. EXTREMITITES: Trace edema. Objective - Vital Signs Vital signs: Vital Signs Temp 98.2 F 04/28/18 07:00 Pulse 74 04/28/18 08:07 Resp 16 04/28/18 07:00 BP 155/99 04/28/18 07:00 Pulse Ox 95 04/28/18 07:00 Intake & Output 04/27/18 04/28/18 04/28/18 18:59 06:59 18:59 Intake Total 367.237 400 Balance 367.237 400 Weight 124.5 kg Intake: Intake, IV Titration 7.237 Amount Insulin Regular 100 unit 7.237 In Sodium Chloride 0.9% 100 ml @ Titrate IV .Q0M [facility] Rx#:[id number] Oral 360 400 Other: # Voids 1 - Labs CBC & Chem 7: 04/28/18 08:14 04/28/18 08:14 Labs: Abnormal Lab Results - Last 24 Hours (Table) 04/27/18 04/27/18 04/27/18 Range/Units 06:27 11:32 17:18 RBC 2.62 L (3.80-5.40) m/uL Hgb 7.6 L (11.4-16.0) gm/dL Hct 24.9 L (34.0-46.0) % MCHC 30.5 L (31.0-37.0) g/dL Lymphocytes # 0.2 L (1.0-4.8) k/uL Sodium (137-145) mmol/L Carbon Dioxide (22-30) mmol/L BUN (7-17) mg/dL Creatinine (0.52-1.04) mg/dL Glucose (74-99) mg/dL POC Glucose (mg/dL) 203 H 275 H (75-99) mg/dL 04/27/18 04/28/18 04/28/18 Range/Units :18 07:28 08:14 RBC (3.80-5.40) m/uL Hgb (11.4-16.0) gm/dL Hct (34.0-46.0) % MCHC (31.0-37.0) g/dL Lymphocytes # (1.0-4.8) k/uL Sodium 136 L (137-145) mmol/L Carbon Dioxide 21 L (22-30) mmol/L BUN 71 H (7-17) mg/dL Creatinine 2.17 H (0.52-1.04) mg/dL Glucose 305 H (74-99) mg/dL POC Glucose (mg/dL) 369 H 321 H (75-99) mg/dL 04/28/18 Range/Units 08:14 RBC 2.73 L (3.80-5.40) m/uL Hgb 8.0 L (11.4-16.0) gm/dL Hct 24.8 L (34.0-46.0) % MCHC (31.0-37.0) g/dL Lymphocytes # 0.3 L (1.0-4.8) k/uL Sodium (137-145) mmol/L Carbon Dioxide (22-30) mmol/L BUN (7-17) mg/dL Creatinine (0.52-1.04) mg/dL Glucose (74-99) mg/dL POC Glucose (mg/dL) (75-99) mg/dL Assessment and Plan Plan: Assessment: 1. Nonoliguric acute kidney injury secondary to ATN secondary to infection and component of vancomycin toxicity. Creatinine peaked at 2.9 on April 24 and is 2.17 today. 2. Chronic kidney disease stage III secondary to diabetic kidney disease with baseline creatinine in the range of 1.6-2.4 recently. 3. Facial abscess and cellulitis maintained on antibiotics per infectious disease. Wound culture positive for MRSA. 4. Metabolic acidosis secondary to acute kidney injury. Stable. 5. Hypertension with chronic kidney disease. Controlled. 6. Diabetes mellitus. Plan: Maintain sodium bicarbonate 1300 mg 3 times daily. Decreased Neurontin to 100 mg 3 times daily. Continue to hold off on IV fluids and diuretics for now. Continue to monitor renal function and urine output. Stable to be discharged home from nephrology standpoint. Follow up outpatient in the next 1-2 weeks.
[2018-04-28] MEDS: predniSONE 20 MG TAB PO SCH (11:09)
[2018-04-28 12:08] LABS: Glucose,Whole Blood 343 mg/dL (75-99)
[2018-04-28] MEDS: INSULN ASP PRT/INSULIN ASPART 100 UNIT/ML 10 ML VIAL SQ SCH ×2 (13:32→18:12)
[2018-04-28 16:27] LABS: Glucose,Whole Blood 300 mg/dL (75-99)
[2018-04-28] MEDS ORDERED: INSULN ASP PRT/INSULIN ASPART 100 UNIT/ML 10 ML VIAL SQ ONE ×2 (16:36→19:19)
[2018-04-28] MEDS: DAPTOmycin 500 MG in SODIUM CHLORIDE 0.9% 50 ML IVPB SCH (17:03)
[2018-04-28 18:02] LABS: Glucose,Whole Blood 291 mg/dL (75-99)
[2018-04-28 19:42] LABS: Glucose,Whole Blood 235 mg/dL (75-99)
--- NOTE | 2018-04-28 22:33 | P.PN ---
Subjective This is a pleasant 53 years old female who presents with left Side cheek abscess that is open and draining purulant discharge and failed outpatient treatment with hyperglycemia as high as 1129 on admission. With elevated troponin. Her sodium was low on admission as low as 118, but corrected for hyperglycemia it to be in mid 130s. Patient was treated with fluids and insulin drip. As well as antibiotic. pt today on 04/21 is telling me she started feeling better regarding her facial infection however there is still swelling ,redness and induration , pt is already on antiobiotic iv vancomycin , ID team is been consulted . her sugar is better controlled currently 04/22/2018 Patient spiked fever of 101.2. Left facial infection and discharge. Patient remains on antibiotics per ID team recommendation. We will call ENT for evaluation of her left facial infection. Patient is status post I and D for multiple superficial abscesses. Patient is not emptying well and she has low sugar episode yesterday. We will decrease her insulin to 10 units every morning and 5 units every afternoon. Creatinine is 2.4, nephrology team is been consulted and their input is appreciated. And the recommended to switch antibiotics alert and vancomycin. I explained risk of nephrotoxicity to the patient and she agrees to continue with it if it is indicated Patient with anemia, iron is low at 25, as well as iron saturation is low at 9.5. Check FOBT. Call GI consult, she is been evaluated before by Dr. Guerra for gastric ulcers. Start iron pills 04/23/2018 Patient is more lethargic today, with some respiratory distress and dyspnea. She was desaturating and needed 5 L of oxygen to keep her oxygen level and the mid 90s. Repeat chest x-ray shows improving vascular congestion and edema, no new infiltrate. ABG showed pH 7.4, pCO2 low at 21, pO2 high at 177. Call pulmonary/critical care for reevaluation. Patient is a status post I&D for her multiple facial abscesses. That she's continue on daptomycin as per ID recommendation. Patient has acute kidney injury secondary to sepsis. However her creatinine is close to her baseline and is slightly elevated from 2.43 to 2.59. Baseline creatinine between 1.6-2.4 as patient has diabetic nephropathy. Nephrology input is appreciated. DC IV fluids. Monitor vitals and labs. WBC 12 K. Culture is growing MRSA. 04/24/2018 Patient is fully awake and oriented today, her breathing is quiet. Patient is still have multiple opening wound abscesses with purulent discharge, most of them. Yesterday patient desaturated and she has some pulmonary congestion she received 1 dose of Lasix by the critical care team. Her creatinine went up from 2.5 to 2.9 mostly secondary to infection and Lasix. Baseline creatinine 1.6-2.4 Nephrology team are following the patient. Recommended to discontinue the fluids and diuretics for now. insulin dose is increased . Repeat chest x- ray shows possible bronchitis. Patient had fever yesterday of 100. Saturating 99% on 6 L nasal cannula patient has MRSA wound culture. 04/25/2018 Patient fascial abscesses are drying up and there is less purulent discharge compared to yesterday. She is more awake and she is starting at the bedside. Patient was started on insulin drip. Nephrology recommended to hold fluids and diuretics. Patient on daptomycin because of her kidney disease, vancomycin was discontinued. Creatinine 2.8. Potassium 5.1. Sodium 138 hemoglobin 7.5 04/26/2018 pt is feeling better today , her face wound are improving , with less discharge. she remains on daptomycin for MRSA. pt complaining from constipation today , started on colace and senna. sugar is controlled. pt has no more fever since 04/23. wbc: 12 K went down to normal at 7.9 today , creatinine is improving and down to 2.4. HB: 7.5. ID and nephrology follow up is appreciated. 04/27/2018 pt continue to improve , her face and chin wound becoming more dry and healing with less discharge. he remains on daptomycin for MRSA. pt complaining from constipation and he senicot dose is increased. sugar is controlled. pt has no more fever since 04/23. wbc: 12 K creatinine is improving and down to 2.4. HB: 7.5.f,u CBC. ID and nephrology follow up is appreciated. her insulin drip was switched to he usual insulin regiment 04/28/2018 pt is doing well today , her face wounds are healing , scnat discharge , pt was cleared by infectious disease for discharge however pt has still uncontrolled sugar despite increasing doses of insulin, pt states she was taking insulin 70/ 30 three times a day not twice as stated on admission , also pt is on steroid which switched to oral prednisone , discharge plan in 24-48 hours Objective - Vital Signs Vital signs: Vital Signs Temp 98.6 F 04/28/18 15:00 Pulse 78 04/28/18 19:27 Resp 16 04/28/18 15:00 BP 140/64 04/28/18 15:00 Pulse Ox 96 04/28/18 15:00 Intake & Output 04/28/18 04/28/18 04/29/18 06:59 18:59 06:59 Intake Total 400 250 Balance 400 250 Weight 124.5 kg Intake: IV 50 DAPTOmycin 500 mg In 50 Sodium Chloride 0.9% 50 ml @ 100 mls/hr IVPB Q48H [facility] Rx#:[id number] Oral 400 200 Other: # Voids 1 - Exam GENERAL: The patient is alert and oriented x3, patient is more lethargic, not in any acute distress. Well developed, obese -HEENT: Pupils are round and equally reacting to light. EOMI. No scleral icterus. No conjunctival pallor. Normocephalic, atraumatic. No pharyngeal erythema. No thyromegaly. left cheek infection which is opon and there is purulent discharge with small area of underlying induration , CARDIOVASCULAR: S1 and S2 present. No murmurs, rubs, or gallops. PULMONARY: Chest is clear to auscultation, no wheezing or crackles. ABDOMEN: Soft, nontender, nondistended, normoactive bowel sounds. No palpable organomegaly. MUSCULOSKELETAL: No joint swelling or deformity. EXTREMITIES: No cyanosis, clubbing, or pedal edema. NEUROLOGICAL: Gross neurological examination did not reveal any focal deficits. SKIN: No rashes. - Labs CBC & Chem 7: 04/28/18 08:14 04/28/18 08:14 Labs: Abnormal Lab Results - Last 24 Hours (Table) 04/27/18 04/28/18 04/28/18 Range/Units 06:27 07:28 08:14 RBC 2.62 L (3.80-5.40) m/uL Hgb 7.6 L (11.4-16.0) gm/dL Hct 24.9 L (34.0-46.0) % MCHC 30.5 L (31.0-37.0) g/dL Lymphocytes # 0.2 L (1.0-4.8) k/uL Sodium 136 L (137-145) mmol/L Carbon Dioxide 21 L (22-30) mmol/L BUN 71 H (7-17) mg/dL Creatinine 2.17 H (0.52-1.04) mg/dL Glucose 305 H (74-99) mg/dL POC Glucose (mg/dL) 321 H (75-99) mg/dL 04/28/18 04/28/18 04/28/18 Range/Units 08:14 12:01 16:25 RBC 2.73 L (3.80-5.40) m/uL Hgb 8.0 L (11.4-16.0) gm/dL Hct 24.8 L (34.0-46.0) % MCHC (31.0-37.0) g/dL Lymphocytes # 0.3 L (1.0-4.8) k/uL Sodium (137-145) mmol/L Carbon Dioxide (22-30) mmol/L BUN (7-17) mg/dL Creatinine (0.52-1.04) mg/dL Glucose (74-99) mg/dL POC Glucose (mg/dL) 343 H 300 H (75-99) mg/dL 04/28/18 04/28/18 Range/Units 17:59 19:32 RBC (3.80-5.40) m/uL Hgb (11.4-16.0) gm/dL Hct (34.0-46.0) % MCHC (31.0-37.0) g/dL Lymphocytes # (1.0-4.8) k/uL Sodium (137-145) mmol/L Carbon Dioxide (22-30) mmol/L BUN (7-17) mg/dL Creatinine (0.52-1.04) mg/dL Glucose (74-99) mg/dL POC Glucose (mg/dL) 291 H 235 H (75-99) mg/dL Assessment and Plan Assessment: Acute hyperosmolar ketotic diabetic state. , resolving Uncontrolled type 2 diabetes mellitus with hyperglycemia facial cellulitis, sepsis. Present on admission. Status post I and D for her facial abscesses Anemia, iron deficiency anemia History of gastric ulcer History of low vitamin D Mild hyponatremia, corrected for hyperglycemia Chronic kidney disease, stage III, with some elements of acute kidney injury, mostly related to sepsis Elevated troponin History of asthma GERD Essential hypertension Hyperlipidemia History of migraine History of atrial fibrillation Obesity with body mass index of 43.1 Plan: We recommend to continue with the same medication. Continue with symptomatic treatment. Resume home medication. Resume insulin and monitor her sugar level. Continue with antibiotics. Pulmonary/critical care consult is appreciated. inspector purchased parts team evalauted pt for elevated troponin , ID are called for left facial cellulitis and antibiotics adjusted as per their team . Patient status post I and D for her facial abscesses by ENT specialist. We'll call GI consult for iron deficiency anemia: The recommended outpatient follow- up and 10 with conservative management currently. Call pulmonary consult. GI and DVT prophylaxis. Further recommendation the clinical course of the patient.Prognosis is guarded
[2018-04-29 07:00] LABS: Glucose,Whole Blood 97 mg/dL (75-99)
[2018-04-29] MEDS: IPRATROPIUM-ALBUTEROL 3 ML NEB INHALATION SCH ×3 (07:29→17:01)
[2018-04-29] MEDS: SYMBICORT 160-4.5 MCG INHALER INHALATION SCH (07:29)
[2018-04-29] MEDS ORDERED: INSULN ASP PRT/INSULIN ASPART 100 UNIT/ML 10 ML VIAL SQ SCH ×3 (07:30→17:30)
[2018-04-29] MEDS: INSULIN ASPART 100 UNIT/ML 1 ML 10 ML VIAL SQ SCH ×2 (08:46→12:43)
[2018-04-29] MEDS: PANTOPRAZOLE 40 MG TABLET PO SCH ×2 (08:49→16:31)
[2018-04-29] MEDS: GABAPENTIN 100 MG CAP PO SCH ×2 (08:49→16:31)
[2018-04-29] MEDS: cloNIDine HCL 0.1 MG TAB PO SCH ×2 (08:49→16:31)
[2018-04-29] MEDS: predniSONE 20 MG TAB PO SCH (08:49)
[2018-04-29] MEDS: N PO SCH (08:49)
[2018-04-29] MEDS: ASPIRIN 81 MG PO SCH (08:49)
[2018-04-29] MEDS: CARVEDILOL 12.5 MG TAB PO SCH ×2 (08:49→16:31)
[2018-04-29] MEDS: SODIUM BICARBONATE TAB 650 MG TAB PO SCH ×2 (08:49→16:31)
[2018-04-29] MEDS: amLODIPine 10 MG TAB PO SCH (08:49)
[2018-04-29] MEDS: FERROUS SULFATE 325 MG TAB PO SCH ×2 (08:50→16:31)
[2018-04-29] MEDS: ENOXAPARIN 30 MG/0.3 ML SYRINGE SQ SCH (08:50)
[2018-04-29] MEDS: LORATADINE 10 MG TAB PO SCH (08:50)
[2018-04-29] MEDS: MUPIROCIN 2% OINT 22 GM TUBE TOPICAL SCH ×2 (08:52→16:32)
[2018-04-29] MEDS: ERYTHROMYCIN 5 MG/GM OPHTH OINT 3.5 GM TUBE RIGHT EYE SCH ×2 (08:53→13:00)
--- NOTE | 2018-04-29 09:49 | P.PN ---
Subjective Patient is seen in follow-up for acute kidney injury. Renal function has been gradually improving. Patient's currently being treated for dental abscess. Vancomycin level was high at 24 on April 21 and was changed to daptomycin. She is tolerating soft diet. Admits to good urine output. No vomiting or diarrhea. Hemodynamically stable. No active complaints at this time. Eager to go home. Vital signs are stable. General: The patient appeared well nourished and normally developed. HEENT: Head exam is unremarkable. Neck is without jugular venous distension. No obvious drainage noted. LUNGS: Lungs are clear to auscultation and percussion. Breath sounds decreased. HEART: Rate and Rhythm are regular. First and second heart sounds normal. No murmurs, rubs or gallops. ABDOMEN: Abdominal exam reveals normal bowel sounds. Non-tender and non- distended. No evidence of peritonitis. EXTREMITITES: Trace edema. Objective - Vital Signs Vital signs: Vital Signs Temp 97.7 F 04/29/18 07:00 Pulse 72 04/29/18 07:45 Resp 18 04/29/18 07:00 BP 175/77 04/29/18 07:00 Pulse Ox 96 04/29/18 07:00 Intake & Output 04/28/18 04/29/18 04/29/18 18:59 06:59 18:59 Intake Total 250 775 200 Balance 250 775 200 Weight 128.5 kg Intake: IV 50 DAPTOmycin 500 mg In 50 Sodium Chloride 0.9% 50 ml @ 100 mls/hr IVPB Q48H [facility] Rx#:[id number] Oral 200 775 200 Other: Voiding Method Bedside Commode # Voids 1 - Labs CBC & Chem 7: 04/28/18 08:14 04/28/18 08:14 Labs: Abnormal Lab Results - Last 24 Hours (Table) 04/28/18 04/28/18 04/28/18 Range/Units 12:01 16:25 17:59 POC Glucose (mg/dL) 343 H 300 H 291 H (75-99) mg/dL 04/28/18 Range/Units 19:32 POC Glucose (mg/dL) 235 H (75-99) mg/dL Assessment and Plan Plan: Assessment: 1. Nonoliguric acute kidney injury secondary to ATN secondary to infection and component of vancomycin toxicity. Creatinine peaked at 2.9 on April 24 and is 2.17 as of yesterday. 2. Chronic kidney disease stage III secondary to diabetic kidney disease with baseline creatinine in the range of 1.6-2.4 recently. 3. Facial abscess and cellulitis maintained on antibiotics per infectious disease. Wound culture positive for MRSA. 4. Metabolic acidosis secondary to acute kidney injury. Stable. 5. Hypertension with chronic kidney disease. BP high. Partially related to steroids. 6. Diabetes mellitus. Plan: Maintain sodium bicarbonate 1300 mg 3 times daily. Decreased Neurontin to 100 mg 3 times daily. Continue to hold off on IV fluids and diuretics for now. Continue to monitor renal function and urine output. Add hydralazine. Stable to be discharged home from nephrology standpoint. Follow up outpatient in the next 1-2 weeks.
[2018-04-29 10:23] LABS: Calcium 8.8 mg/dL (8.4-10.2); Potassium 4.4 mmol/L (3.5-5.1)
[2018-04-29] MEDS: hydrALAZINE HCL 25 MG TAB PO SCH ×2 (11:19→16:31)
[2018-04-29 11:24] LABS: Glucose,Whole Blood 122 mg/dL (75-99)
[2018-04-29] MEDS: INSULN ASP PRT/INSULIN ASPART 100 UNIT/ML 10 ML VIAL SQ SCH (13:00)
--- NOTE | 2018-04-29 15:59 | P.DS ---
Providers Date of admission: 04/19/18 19:40 Attending physician: Bayron Iglesias Consults: 04/19/18 19:35 Consult Physician Routine Consulting Provider: Imelda Blanc Consult Reason/Comments: icu Do you want consulting provider notified?: Yes 04/20/18 00:38 Consult Physician Routine Consulting Provider: Zabrina Dasilva Consult Reason/Comments: sepsis Do you want consulting provider notified?: Yes 04/20/18 00:42 Consult Physician Routine Consulting Provider: Jaydon Soni Consult Reason/Comments: high trops Do you want consulting provider notified?: Yes 04/22/18 09:05 Consult Physician Urgent Consulting Provider: Felecia Dallas Consult Reason/Comments: elevated creatinine Do you want consulting provider notified?: Yes 04/22/18 09:48 Consult Physician Routine Consulting Provider: Alex Gimenez Consult Reason/Comments: Possible I&D needed for facial abcess Do you want consulting provider notified?: Yes Primary care physician: Susan Galarza [facility] Course: 53 years old female who presents with left Side cheek abscess that is open and draining purulant discharge and failed outpatient treatment with hyperglycemia as high as 1129 on admission. With elevated troponin. Her sodium was low on admission as low as 118, but corrected for hyperglycemia it to be in mid 130s. Patient was treated with fluids and insulin drip. As well as antibiotic. pt today on 04/21 is telling me she started feeling better regarding her facial infection however there is still swelling ,redness and induration , pt is already on antiobiotic iv vancomycin , ID team is been consulted . her sugar is better controlled currently 04/22/2018 Patient spiked fever of 101.2. Left facial infection and discharge. Patient remains on antibiotics per ID team recommendation. We will call ENT for evaluation of her left facial infection. Patient is status post I and D for multiple superficial abscesses. Patient is not emptying well and she has low sugar episode yesterday. We will decrease her insulin to 10 units every morning and 5 units every afternoon. Creatinine is 2.4, nephrology team is been consulted and their input is appreciated. And the recommended to switch antibiotics alert and vancomycin. I explained risk of nephrotoxicity to the patient and she agrees to continue with it if it is indicated Patient with anemia, iron is low at 25, as well as iron saturation is low at 9.5. Check FOBT. Call GI consult, she is been evaluated before by Dr. Guerra for gastric ulcers. Start iron pills 04/23/2018 Patient is more lethargic today, with some respiratory distress and dyspnea. She was desaturating and needed 5 L of oxygen to keep her oxygen level and the mid 90s. Repeat chest x-ray shows improving vascular congestion and edema, no new infiltrate. ABG showed pH 7.4, pCO2 low at 21, pO2 high at 177. Call pulmonary/critical care for reevaluation. Patient is a status post I&D for her multiple facial abscesses. That she's continue on daptomycin as per ID recommendation. Patient has acute kidney injury secondary to sepsis. However her creatinine is close to her baseline and is slightly elevated from 2.43 to 2.59. Baseline creatinine between 1.6-2.4 as patient has diabetic nephropathy. Nephrology input is appreciated. DC IV fluids. Monitor vitals and labs. WBC 12 K. Culture is growing MRSA. 04/24/2018 Patient is fully awake and oriented today, her breathing is quiet. Patient is still have multiple opening wound abscesses with purulent discharge, most of them. Yesterday patient desaturated and she has some pulmonary congestion she received 1 dose of Lasix by the critical care team. Her creatinine went up from 2.5 to 2.9 mostly secondary to infection and Lasix. Baseline creatinine 1.6-2.4 Nephrology team are following the patient. Recommended to discontinue the fluids and diuretics for now. insulin dose is increased . Repeat chest x- ray shows possible bronchitis. Patient had fever yesterday of 100. Saturating 99% on 6 L nasal cannula patient has MRSA wound culture. 04/25/2018 Patient fascial abscesses are drying up and there is less purulent discharge compared to yesterday. She is more awake and she is starting at the bedside. Patient was started on insulin drip. Nephrology recommended to hold fluids and diuretics. Patient on daptomycin because of her kidney disease, vancomycin was discontinued. Creatinine 2.8. Potassium 5.1. Sodium 138 hemoglobin 7.5 04/26/2018 pt is feeling better today , her face wound are improving , with less discharge. she remains on daptomycin for MRSA. pt complaining from constipation today , started on colace and senna. sugar is controlled. pt has no more fever since 04/23. wbc: 12 K went down to normal at 7.9 today , creatinine is improving and down to 2.4. HB: 7.5. ID and nephrology follow up is appreciated. 04/27/2018 pt continue to improve , her face and chin wound becoming more dry and healing with less discharge. he remains on daptomycin for MRSA. pt complaining from constipation and he senicot dose is increased. sugar is controlled. pt has no more fever since 04/23. wbc: 12 K creatinine is improving and down to 2.4. HB: 7.5.f,u CBC. ID and nephrology follow up is appreciated. her insulin drip was switched to he usual insulin regiment 04/28/2018 pt is doing well today , her face wounds are healing , scnat discharge , pt was cleared by infectious disease for discharge however pt has still uncontrolled sugar despite increasing doses of insulin, pt states she was taking insulin 70/ 30 three times a day not twice as stated on admission , also pt is on steroid which switched to oral prednisone , discharge plan in 24-48 hours 04/29/2018 Patient blood sugars were low since additional 70/30 was ordered for lunch chest today. That medication will be discontinued patient will be continued on morning and evening NPH 7030 but I'll increase the dose of nighttime 70/30-30 units from 25 patient was asked to monitor her blood sugars closely patient blood sugars are bit elevated day before because of the systemic steroids which I'm tapering. GENERAL: The patient is alert and oriented x3, patient is more lethargic, not in any acute distress. Well developed, obese -HEENT: Pupils are round and equally reacting to light. EOMI. No scleral icterus. No conjunctival pallor. Normocephalic, atraumatic. No pharyngeal erythema. No thyromegaly. left cheek infection which is opon and there is purulent discharge with small area of underlying induration , CARDIOVASCULAR: S1 and S2 present. No murmurs, rubs, or gallops. PULMONARY: Chest is clear to auscultation, no wheezing or crackles. ABDOMEN: Soft, nontender, nondistended, normoactive bowel sounds. No palpable organomegaly. MUSCULOSKELETAL: No joint swelling or deformity. EXTREMITIES: No cyanosis, clubbing, or pedal edema. NEUROLOGICAL: Gross neurological examination did not reveal any focal deficits. SKIN: No rashes. Assessment: Acute hyperosmolar ketotic diabetic state. , Resolved Uncontrolled type 2 diabetes mellitus with hyperglycemia facial cellulitis, sepsis. Present on admission. Status post I and D for her facial abscesses patient was on daptomycin now being discharged on doxycycline as recommended by infectious disease with 14 more days Anemia, iron deficiency anemia History of gastric ulcer History of low vitamin D Mild hyponatremia, corrected for hyperglycemia Chronic kidney disease, stage III, with some elements of acute kidney injury, mostly related to sepsis Elevated troponin History of asthma GERD Essential hypertension Hyperlipidemia History of migraine History of atrial fibrillation Obesity with body mass index of 43.1 Patient Condition at Discharge: Serious Plan - Discharge Summary Discharge Rx Participant: No New Discharge Prescriptions: New Doxycycline [Vibramycin] 100 mg PO BID #14 cap Insuln Asp Prt/Insulin Aspart [NovoLOG MIX 70-30 VIAL] 30 unit SQ AC-SUPPER vial predniSONE 10 mg PO DAILY #30 tab Continue Insulin Aspart Protam & Aspart [NovoLOG MIX 70-30 Flexpen] 35 unit SQ AC- BRKFST amLODIPine [Norvasc] 10 mg PO DAILY Gabapentin 600 mg PO TID Citalopram Hydrobromide [CeleXA] 40 mg PO DAILY Albuterol Sulfate [Proair Hfa] 2 puff INHALATION RT-Q4H PRN PRN Reason: Shortness Of Breath Fluticasone Nasal Browning [Flonase Nasal Browning] 1 - 2 spray EA NOSTRIL HS PRN PRN Reason: Allergy Symptoms Zolpidem [Ambien] 10 mg PO HS PRN PRN Reason: sleep Budesonide/Formoterol Fumarate [Symbicort 160-4.5 Mcg Inhaler] 2 puff INHALATION RT-DAILY Gemfibrozil [Lopid] 600 mg PO BID Cetirizine HCl [Zyrtec] 10 mg PO DAILY Albuterol Nebulized [Ventolin Nebulized] 2.5 mg INHALATION RT-QID PRN PRN Reason: Shortness Of Breath cloNIDine HCL [Catapres] 0.2 mg PO TID #90 tab Sodium Bicarbonate Tab 650 mg PO MO Ranitidine HCl [Zantac] 150 mg PO BID Carvedilol [Coreg*] 25 mg PO BID Erythromycin Ophth Oint [Romycin Ophth Oint] 1 applic RIGHT EYE QID 7 Days gm Mupirocin 2% Oint [Bactroban 2% Oint] 1 applic TOPICAL TID #1 gm Ibuprofen [Motrin Ib] 200 mg PO TID PRN PRN Reason: Pain Discontinued Insulin Aspart Protam & Aspart [NovoLOG MIX 70-30 Flexpen] 25 unit SQ AC- SUPPER Pantoprazole [Protonix] 40 mg PO DAILY Chlorthalidone [Hygroton] 25 mg PO DAILY #30 tab Clindamycin HCl 300 mg PO Q6H #40 cap Discharge Medication List Albuterol Sulfate [Proair Hfa] 2 puff INHALATION RT-Q4H PRN 02/25/17 [History] Citalopram Hydrobromide [CeleXA] 40 mg PO DAILY 02/25/17 [History] Gabapentin 600 mg PO TID 02/25/17 [History] Insulin Aspart Protam & Aspart [NovoLOG MIX 70-30 Flexpen] 35 unit SQ AC-BRKFST 02/25/17 [History] amLODIPine [Norvasc] 10 mg PO DAILY 02/25/17 [History] Fluticasone Nasal Browning [Flonase Nasal Browning] 1 - 2 spray EA NOSTRIL HS PRN 12/25 [History] Albuterol Nebulized [Ventolin Nebulized] 2.5 mg INHALATION RT-QID PRN 11/14/17 [ History] Budesonide/Formoterol Fumarate [Symbicort 160-4.5 Mcg Inhaler] 2 puff INHALATION RT-DAILY 11/14/17 [History] Cetirizine HCl [Zyrtec] 10 mg PO DAILY 11/14/17 [History] Gemfibrozil [Lopid] 600 mg PO BID 11/14/17 [History] Zolpidem [Ambien] 10 mg PO HS PRN 11/14/17 [History] cloNIDine HCL [Catapres] 0.2 mg PO TID #90 tab 11/20/17 [Rx] Carvedilol [Coreg*] 25 mg PO BID 12/29/17 [History] Ranitidine HCl [Zantac] 150 mg PO BID 12/29/17 [History] Sodium Bicarbonate Tab 650 mg PO MO 12/29/17 [History] Erythromycin Ophth Oint [Romycin Ophth Oint] 1 applic RIGHT EYE QID 7 Days gm 04/15/18 [Rx] Mupirocin 2% Oint [Bactroban 2% Oint] 1 applic TOPICAL TID #1 gm 04/15/18 [Rx] Ibuprofen [Motrin Ib] 200 mg PO TID PRN 04/19/18 [History] Doxycycline [Vibramycin] 100 mg PO BID #14 cap 04/28/18 [Rx] Insuln Asp Prt/Insulin Aspart [NovoLOG MIX 70-30 VIAL] 30 unit SQ AC-SUPPER vial 04/29/18 [Rx] predniSONE 10 mg PO DAILY #30 tab 04/29/18 [Rx] Follow up Appointment(s)/Referral(s): Felecia Dallas MD [STAFF PHYSICIAN] - 05/25/18 10:40 am (With Nurse Practitioner Chat. ) Zabrina Dasilva MD [STAFF PHYSICIAN] - 05/10/18 10:00 am (call office to reschedule appt for next week) Susan Galarza MD [Primary Care Provider] - 04/30/18 1:30 pm (With [employer]) [facility] Visiting Nurse, [NON-STAFF] -
[2018-04-29 16:28] VITALS: BP 141/73; PULSE 65; RESP 20; TEMP 98.1
== END 2018-04-29 17:04 | disposition home or self-care (01) | DRG 871 ==
LOC: EC 16:33 → 6ICU 19:40 → 4MS4W 04-21 16:10 → 3SCARD 04-23 23:00 → 4MS4W 04-27 13:41
PROVIDERS: ADMIT Hospitalist; ATTEND Hospitalist
PROC: 0H91XZZ Drainage of Face Skin, External Approach (ICD-10-PCS; principal; 2018-04-22)
DX: A41.02 Sepsis due to Methicillin resistant Staphylococcus aureus (principal); E11.10 Type 2 diabetes mellitus with ketoacidosis without coma; K25.4 Chronic or unspecified gastric ulcer with hemorrhage; N17.0 Acute kidney failure with tubular necrosis; D62 Acute posthemorrhagic anemia; Z68.41 Body mass index [BMI] 40.0-44.9, adult; E87.0 Hyperosmolality and hypernatremia; E87.1 Hypo-osmolality and hyponatremia; J44.1 Chronic obstructive pulmonary disease with (acute) exacerbation; L02.01 Cutaneous abscess of face; L03.211 Cellulitis of face; D50.9 Iron deficiency anemia, unspecified; D63.8 Anemia in other chronic diseases classified elsewhere; E11.21 Type 2 diabetes mellitus with diabetic nephropathy; E11.22 Type 2 diabetes mellitus with diabetic chronic kidney disease; E11.319 Type 2 diabetes mellitus with unspecified diabetic retinopathy without macular edema; E11.40 Type 2 diabetes mellitus with diabetic neuropathy, unspecified; E78.5 Hyperlipidemia, unspecified; E86.0 Dehydration; F41.9 Anxiety disorder, unspecified; H00.013 Hordeolum externum right eye, unspecified eyelid; H54.7 Unspecified visual loss; I12.9 Hypertensive chronic kidney disease with stage 1 through stage 4 chronic kidney disease, or unspecified chronic kidney disease; R65.20 Severe sepsis without septic shock; I48.91 Unspecified atrial fibrillation; K04.7 Periapical abscess without sinus; J45.20 Mild intermittent asthma, uncomplicated; K21.9 Gastro-esophageal reflux disease without esophagitis; K59.00 Constipation, unspecified; N18.3 Chronic kidney disease, stage 3 (moderate); R09.02 Hypoxemia; E66.01 Morbid (severe) obesity due to excess calories; T36.8X5A Adverse effect of other systemic antibiotics, initial encounter; T38.0X5A Adverse effect of glucocorticoids and synthetic analogues, initial encounter; Z79.1 Long term (current) use of non-steroidal anti-inflammatories (NSAID); Z79.4 Long term (current) use of insulin; Z79.51 Long term (current) use of inhaled steroids; Z79.899 Other long term (current) drug therapy; Z82.49 Family history of ischemic heart disease and other diseases of the circulatory system; Z83.3 Family history of diabetes mellitus; Z86.14 Personal history of Methicillin resistant Staphylococcus aureus infection; Z87.11 Personal history of peptic ulcer disease; Z88.0 Allergy status to penicillin; Z88.1 Allergy status to other antibiotic agents; Z88.2 Allergy status to sulfonamides; Z88.5 Allergy status to narcotic agent; Z88.7 Allergy status to serum and vaccine; Z88.8 Allergy status to other drugs, medicaments and biological substances
CPT/HCPCS: 36415; 36600; 51702; 70486; 70490; 71045; 80048; 80051; 80053; 80202; 81001; 82009; 82533; 82550; 82553; 82565; 82607; 82728; 82746; 82805; 82947; 83036; 83540; 83550; 83605; 83735; 83880; 84100; 84484; 84520; 85025; 85610; 85730; 86850; 86900; 86901; 86920; 87040; 87070; 87077; 87086; 87186; 87205; 93005; 93306; 94640; 94760; 96361; 96365; 96366; 96367; 96372; 96375; 96376; 99291

== ENCOUNTER → 2018-10-03 | Outpatient (CLI) | payer BC, MEDICARE ==
[2018-10-03 18:15] LABS: Albumin 3.8 g/dL (3.80-4.90); Albumin/Globulin Ratio 1.9 (1.60-3.17); Anion Gap 9.4 mmol/L (4.00-12.00); Calcium 9.2 mg/dL (8.7-10.3); Carbon Dioxide 24.6 mmol/L (21.6-31.8); Potassium 4.6 mmol/L (3.5-5.5); Total Bilirubin 0.2 mg/dL (0.3-1.2); Total Protein 5.8 g/dL (6.2-8.2)
== END ==
LOC: LABWHC1 09:43
PROVIDERS: ATTEND Internal Medicine Critical Care Medicine
DX: N18.3 Chronic kidney disease, stage 3 (moderate) (principal)
CPT/HCPCS: 36415; 80053

== ENCOUNTER 2018-10-16 10:14 | Inpatient (IN) | payer BC, MEDICARE ==
[2018-10-16] MEDS ORDERED: ONDANSETRON 4 MG/2 ML VIAL IVP STA (10:26)
[2018-10-16] MEDS ORDERED: SODIUM CHLORIDE 0.9% 1,000 ML IV STA (10:26)
--- NOTE | 2018-10-16 10:49 | ED ---
Nausea/Vomiting/Diarrhea HPI - General Chief complaint: Nausea/Vomiting/Diarrhea Stated complaint: diarrhea/vomiting Time Seen by Provider: 10/16/18 10:25 Source: patient Mode of arrival: ambulatory Limitations: no limitations - History of Present Illness Initial comments: 53-year-old female with diabetes, insulin-dependent, hypertension hyperlipidemia stage III kidney disease epigastric ulcer disease presenting today for chief complaint of diarrhea, abdominal cramping and vomiting. Patient states she was recently changed from Norvasc to Lasix for blood pressure control. Patient states since this which she has had diarrhea for the 4 days following about every hour. She states she had an episode of emesis this morning. Denies emesis. Patient denies any constipation prior to the onset of symptoms. She denies fever or night sweats. Patient denies sick contacts. Patient states she has a cramping/pressure like pain in the mid/lower abdomen prior to the onset of diarrhea or vomiting. Denies radiation of pain. She denies abdominal pain the absence of diarrhea or vomiting. Patient denies melena or hematochezia. Patient denies recent travel. Patient denies chest pain, upper abdominal pain, dyspnea. Pt states she does feel "wheezy" and has history of asthma. Remaining ROS (-). - Related Data Home Medications Medication Instructions Recorded Confirmed Albuterol Sulfate [Proair Hfa] 2 puff INHALATION RT-Q4H PRN 02/25/17 10/16/18 Citalopram Hydrobromide [CeleXA] 40 mg PO DAILY 02/25/17 10/16/18 Gabapentin 600 mg PO TID 02/25/17 10/16/18 Fluticasone Nasal [place] [Flonase 1 - 2 spray EA NOSTRIL HS PRN 08/15/17 10/16/18 Nasal [place]] Albuterol Nebulized [Ventolin 2.5 mg INHALATION RT-QID PRN 11/14/17 10/16/18 Nebulized] Cetirizine HCl [Zyrtec] 10 mg PO DAILY 11/14/17 10/16/18 Gemfibrozil [Lopid] 600 mg PO BID 11/14/17 10/16/18 ALPRAZolam [Xanax] 0.5 mg PO DAILY PRN 10/16/18 10/16/18 Carvedilol [Coreg] 25 mg PO BID 10/16/18 10/16/18 Furosemide [Lasix] 40 mg PO DAILY 10/16/18 10/16/18 Insulin Aspart Protam & Aspart 25 unit SQ AC-BRKFST 10/16/18 10/16/18 [NovoLOG MIX 70-30 Flexpen] Insulin Aspart Protam & Aspart 35 unit SQ AC-SUPPER 10/16/18 10/16/18 [NovoLOG MIX 70-30 Flexpen] Pantoprazole Sodium [Protonix] 40 mg PO DAILY 10/16/18 10/16/18 traZODone HCL [Desyrel] 100 mg PO HS 10/16/18 10/16/18 Previous Rx's Medication Instructions Recorded cloNIDine HCL [Catapres] 0.2 mg PO TID #90 tab 11/20/17 Allergies Allergy/AdvReac Type Severity Reaction Status Date / Time adhesive tape Allergy Itching/swe Verified 10/16/18 10:35 lling hydrocodone [From [place]] Allergy Hallucinati Verified 10/16/18 10:35 ons/vomitin g measles, mumps, and rubella Allergy Rash/Hives Verified 10/16/18 10:35 vaccine Penicillins Allergy Anaphylaxis Verified 10/16/18 10:35 shellfish derived [Shrimp] Allergy Rash/Hives Verified 10/16/18 10:35 Sulfa (Sulfonamide Allergy Anaphylaxis Verified 10/16/18 10:35 Antibiotics) Review of Systems ROS Statement: Those systems with pertinent positive or pertinent negative responses have been documented in the HPI. ROS Other: All systems not noted in ROS Statement are negative. 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 Date of last positivie culture/infection: 04/19/18 MDRO Source:: face Past Surgical History: Section, Uterine Ablation Additional Past Surgical History / Comment(s): C/S x 4, cyst removed from forehead, EGD, left cataract with lens implant Past Anesthesia/Blood Transfusion Reactions: Motion Sickness, Postoperative Nausea & Vomiting (PONV) Past Psychological History: Anxiety Smoking Status: Never smoker Past Alcohol Use History: Rare Past Drug Use History: None Reported - Past Family History Father Family Medical History: Cancer Additional Family Medical History / Comment(s): cancerous polyp Mother Family Medical History: Hypertension Additional Family Medical History / Comment(s): irreg heart beat, boarderline dm General Exam - General Exam Comments Initial Comments: General: The patient is awake and alert, in no distress Eye: Pupils are equal, round and reactive to light, extra-ocular movements are intact. No nystagmus. There is normal conjunctiva bilaterally. No signs of icterus. Ears, nose, mouth and throat: There are moist mucous membranes and no oral lesions. Neck: The neck is supple, there is no tenderness or JVD. Cardiovascular: There is a regular rate and rhythm. No murmur, rub or gallop is appreciated. Respiratory: Lungs are clear to auscultation, respirations are non-labored, breath sounds are equal. No wheezes, stridor, rales, or rhonchi. Gastrointestinal: No noted diaphoresis, jaundice, pallor, protecting postures or squirming. Symmetrical pigmentation of abdomen without signs of inflammation. Obese abdomen. Umbilicus mildline, inverted without swelling. No dilated veins. No noted abdominal distention. No visible masses. No peristalsis, aortic pulsations, or ventral hernia. Bowel sounds audible in all 4 quadrants, unremarkable. No friction rubs or venous hums. No epigastic, hepatic or abdominal bruits. Tender to the mid abdominal region. No significant lower abdominal tenderness to palpation. No rigidity or guarding. Liver edge, not palpable. Spleen edge, right and left kidney not palpable. Superior bladder margin non-tender. Special Testing: Negative Rovsing, McBurney, Octavio, cutaneous hyperesthesia. Iliopsoas and obturator tests negative bilaterally. Negative Heel Jar test/no sign. No CVA tenderness. [Digital rectal exam deferred.] Negative michelle turners or cullens sign Musculoskeletal: Normal ROM, no tenderness. Strength 5/5. Sensation intact. Radial pulses equal bilaterally 2+. Neurological: A&O x 3. CN II-XII intact, There are no obvious motor or sensory deficits. Coordination appears grossly intact. Speech is normal. Skin: Skin is warm and dry and no rashes or lesions are noted. Psychiatric: Cooperative, appropriate mood & affect, normal judgment. Limitations: no limitations Course Vital Signs 10/16/18 10/16/18 10/16/18 10:16 11:22 11:38 Temperature 99.8 F H 98.7 F Pulse Rate 91 88 88 Respiratory 18 16 Rate Blood Pressure 178/102 213/93 174/77 O2 Sat by Pulse 97 93 L Oximetry 10/16/18 12:16 Temperature Pulse Rate 83 Respiratory 16 Rate Blood Pressure 193/96 O2 Sat by Pulse 98 Oximetry Medical Decision Making - Medical Decision Making 53-year-old male past medical history of pancreatitis in the past presenting today for chief complaint of mid abdominal pain. Lipase elevated at 5200. Pt recently began lasix prior to onset of symptoms. Pt ordered NPO and give IVF. She has established care with Dr. Nazario. Pt will be admitted to [facility]. She is agreeable to admission. Patient cannot take blood pressure medications prior to arrival. Patient provided hydralazine emergency department. Discussed case with attending provider Dr. Uribe at this time we will admit patient for further evaluation, bowel rest and GI evaluation/consult. - Lab Data Result diagrams: 10/16/18 10:39 10/16/18 10:39 Lab Results 10/16/18 10/16/18 10/16/18 Range/Units 10:00 10:39 10:39 WBC 16.9 H (3.8-10.6) k/uL RBC 4.69 (3.80-5.40) m/uL Hgb 12.3 (11.4-16.0) gm/dL Hct 38.0 (34.0-46.0) % MCV 81.0 (80.0-100.0) fL MCH 26.2 (25.0-35.0) pg MCHC 32.4 (31.0-37.0) g/dL RDW 15.9 H (11.5-15.5) % Plt Count 288 (150-450) k/uL Neutrophils % 80 % Lymphocytes % 6 % Monocytes % 3 % Eosinophils % 10 % Basophils % 0 % Neutrophils # 13.6 H (1.3-7.7) k/uL Lymphocytes # 1.0 (1.0-4.8) k/uL Monocytes # 0.5 (0-1.0) k/uL Eosinophils # 1.7 H (0-0.7) k/uL Basophils # 0.0 (0-0.2) k/uL Sodium 143 (137-145) mmol/L Potassium 4.5 (3.5-5.1) mmol/L Chloride 110 H (98-107) mmol/L Carbon Dioxide 26 (22-30) mmol/L Anion Gap 7 mmol/L BUN 40 H (7-17) mg/dL Creatinine 2.23 H (0.52-1.04) mg/dL Est GFR (CKD-EPI)AfAm 28 (>60 ml/min/1.73 sqM) Est GFR (CKD-EPI)NonAf 25 (>60 ml/min/1.73 sqM) Glucose 231 H (74-99) mg/dL Calcium 9.6 (8.4-10.2) mg/dL Total Bilirubin 0.3 (0.2-1.3) mg/dL AST 16 (14-36) U/L ALT 26 (9-52) U/L Alkaline Phosphatase 84 (38-126) U/L Total Protein 6.7 (6.3-8.2) g/dL Albumin 3.7 (3.5-5.0) g/dL Lipase 5820 H (23-300) U/L Urine Color Yellow Urine Appearance Cloudy H (Clear) Urine pH 6.0 (5.0-8.0) Ur Specific [place] 1.019 (1.001-1.035) Urine Protein 3+ H (Negative) Urine Glucose (UA) 2+ H (Negative) Urine Ketones Negative (Negative) Urine Blood Trace H (Negative) Urine Nitrite Negative (Negative) Urine Bilirubin Negative (Negative) Urine Urobilinogen <2.0 (<2.0) mg/dL Ur Leukocyte Esterase Small H (Negative) Urine RBC 3 (0-5) /hpf Urine WBC 8 H (0-5) /hpf Ur Squamous Epith Cells 7 H (0-4) /hpf Amorphous Sediment Moderate H (None) /hpf Urine Bacteria Rare H (None) /hpf Urine Mucus Rare H (None) /hpf Urine Sperm Rare (None) /hpf Disposition Clinical Impression: Pancreatitis Disposition: ADMITTED IP TO THIS HOSP Condition: Good Is patient prescribed a controlled substance at d/c from ED?: No Time of Disposition: 12:33 Decision to Admit Reason: Admit from EC Decision Date: 10/16/18 Decision Time: 12:33
[2018-10-16 11:00] LABS: Basophils % (A) 0 %; Eosinophils # (A) 1.7 k/uL (0-0.7); Eosinophils % (A) 10 %; HGB 12.3 gm/dL (11.4-16.0); Lymphocytes % (A) 6 %; MCH 26.2 pg (25.0-35.0); MCHC 32.4 g/dL (31.0-37.0); Mean Platelet Volume 6.2; Monocytes # (A) 0.5 k/uL (0-1.0); Monocytes % (A) 3 %; Neutrophils # (A) 13.6 k/uL (1.3-7.7); Neutrophils % (A) 80 %; Platelet Count 288 k/uL (150-450); RBC 4.69 m/uL (3.80-5.40); RDW 15.9 % (11.5-15.5); WBC 16.9 k/uL (3.8-10.6)
[2018-10-16 11:23] LABS: Albumin 3.7 g/dL (3.5-5.0); Calcium 9.6 mg/dL (8.4-10.2); Potassium 4.5 mmol/L (3.5-5.1); Total Bilirubin 0.3 mg/dL (0.2-1.3); Total Protein 6.7 g/dL (6.3-8.2)
[2018-10-16] MEDS ORDERED: hydrALAZINE HCL 20 MG/ML 1 ML VIAL IVP STA (11:30)
[2018-10-16 11:35] LABS: Amorphous Sediment,Urine Moderate /hpf; Appearance,Urine Cloudy (Clear); Bacteria,Urine Rare /hpf; Bilirubin,Urine Negative (Negative); Blood,Urine Trace (Negative); Color,Urine Yellow; Glucose,Urine (UA) 2+ (Negative); Ketones,Urine Negative (Negative); Leukocyte Esterase,Urine Small (Negative); Mucus,Urine Rare /hpf; Nitrite,Urine Negative (Negative); Protein,Urine 3+ (Negative); RBC,Urine 3 /hpf (0-5); Specific Gravity,Urine 1.019 (1.001-1.035); Sperm,Urine Rare /hpf; Squamous Epithelial Cell,Urine 7 /hpf (0-4); Urobilinogen,Urine <2.0 mg/dL (<2.0); WBC,Urine 8 /hpf (0-5)
[2018-10-16] MEDS ORDERED: MAG HYDROX/AL HYDROX/SIMETH 30 ML, HYOSCYAMINE ELIXIR 10 ML, CIMETIDINE HCL 300 MG, LID... PO STA ×4 (12:07)
--- NOTE | 2018-10-16 12:21 | XR ---
EXAMINATION TYPE: XR KUB DATE OF EXAM: 10/16/2018 COMPARISON: NONE HISTORY: Pain TECHNIQUE: Single supine KUB image of the abdomen is obtained FINDINGS: Small bowel demonstrates no evidence for dilatation or air fluid levels. Gas and fecal material is seen in non-distended colon. No convincing evidence for pneumoperitoneum. No unusual calcifications. The lung bases are clear. The osseous structures are intact. IMPRESSION: 1. Overall nonobstructive bowel gas pattern.
[2018-10-16] MEDS ORDERED: NALOXONE 0.4 MG/ML 1 ML VIAL IV PRN (12:30)
[2018-10-16] MEDS: MORPHINE SULFATE 4 MG/ML SYRINGE IV PRN ×3 (12:59→22:27)
[2018-10-16] MEDS: SODIUM CHLORIDE 0.9% 1,000 ML IV SCH ×2 (13:53→23:29)
[2018-10-16] MEDS: ONDANSETRON 4 MG/2 ML VIAL IVP PRN ×2 (13:54→21:56)
[2018-10-16] MEDS ORDERED: INFLUENZA VACCINE (6 MOS+) 60 MCG/0.5 ML SYRINGE IM ONE (14:41)
[2018-10-16 16:40] LABS: Glucose,Whole Blood 184 mg/dL (75-99)
[2018-10-16] MEDS ORDERED: ALPRAZolam 0.5 MG TAB PO PRN (19:42)
[2018-10-16] MEDS ORDERED: FLUTICASONE 50MCG/SPRAY NASAL 16GM EA NOSTRIL PRN (19:42)
[2018-10-16 20:31] LABS: Glucose,Whole Blood 108 mg/dL (75-99)
[2018-10-16] MEDS: GABAPENTIN 300 MG CAP PO SCH (21:55)
[2018-10-16] MEDS: cloNIDine HCL 0.2 MG TAB PO SCH (21:56)
[2018-10-16] MEDS: FUROSEMIDE 40 MG TAB PO SCH (21:56)
[2018-10-16] MEDS: FENOFIBRATE 160 MG TAB PO SCH (21:56)
[2018-10-16] MEDS: traZODone HCL 100 MG TAB PO SCH (21:56)
[2018-10-16] MEDS: CARVEDILOL 12.5 MG TAB PO SCH (21:56)
[2018-10-16] MEDS: CITALOPRAM HYDROBROMIDE 20 MG TAB PO SCH (21:56)
[2018-10-16] MEDS: ALBUTEROL NEBULIZED 2.5 MG/3 ML INHALATION PRN (22:05)
[2018-10-17 02:06] LABS: Glucose,Whole Blood 135 mg/dL (75-99)
[2018-10-17 03:53] LABS: Cholesterol 182 mg/dL (<200); HDL Cholesterol 37 mg/dL (40-60); LDL Cholesterol,Calculated 124 mg/dL (0-99); Triglycerides 103 mg/dL (<150)
[2018-10-17 07:05] LABS: Glucose,Whole Blood 148 mg/dL (75-99)
[2018-10-17] MEDS: PANTOPRAZOLE 40 MG TABLET PO SCH (07:44)
[2018-10-17] MEDS: CITALOPRAM HYDROBROMIDE 20 MG TAB PO SCH (07:44)
[2018-10-17] MEDS: GABAPENTIN 300 MG CAP PO SCH ×3 (07:44→20:20)
[2018-10-17] MEDS: FUROSEMIDE 40 MG TAB PO SCH (07:45)
[2018-10-17] MEDS: cloNIDine HCL 0.2 MG TAB PO SCH ×3 (07:45→20:20)
[2018-10-17] MEDS: CARVEDILOL 12.5 MG TAB PO SCH ×2 (07:45→17:00)
[2018-10-17] MEDS: LORATADINE 10 MG TAB PO SCH (07:45)
[2018-10-17] MEDS: INSULN ASP PRT/INSULIN ASPART 100 UNIT/ML 10 ML VIAL SQ SCH ×2 (07:45→17:50)
[2018-10-17] MEDS: SODIUM CHLORIDE 0.9% 1,000 ML IV SCH ×2 (07:46→17:51)
[2018-10-17] MEDS: ALBUTEROL NEBULIZED 2.5 MG/3 ML INHALATION PRN ×3 (08:45→21:10)
[2018-10-17 12:04] LABS: Glucose,Whole Blood 159 mg/dL (75-99)
[2018-10-17 13:34] VITALS: BMI 42.5
--- NOTE | 2018-10-17 13:34 | P.CONS ---
History of Present Illness - Reason for Consult Consult date: 10/17/18 Abdominal pain pancreatitis Requesting physician: Robbie Nieves - Chief Complaint Abdominal pain - History of Present Illness 53-year-old female patient of Dr. Nazario with a history of multiple episodes of nonalcoholic pancreatitis diabetes insulin dependent, peptic ulcer disease, GI bleed, chronic kidney disease admitted with intractable nausea vomiting nonbloody diarrhea 5-6 days with upper abdominal pain elevated pancreatic enzymes. Admission lipase 5820. LFTs within normal limits. Patient has had some changes in her medications in the last few weeks cannot provide details. No history of alcohol. KUB nonobstructive bowel gas pattern. Previous abdominal imaging reported no evidence of cholelithiasis. Presently she feels well abdominal pain is significantly improved. Afebrile. Denies hematemesis hematochezia melena. Review of Systems Constitutional: Denies fever, chills, sweats, weight gain, or loss. HEENT: Negative for migraines, blurred vision or loss, earaches, drainage, tinnitus, oral mucosal lesions, dysphagia, or odynophagia. CARDIAC: Negative for chest pain, arrhythmias, or palpitation. RESPIRATORY: Negative for shortness of breath, hemoptysis, cough, or sputum production. GI: See HPI for pertinent findings. : Negative for hematuria, urgency, frequency, polyuria, or dysuria. GYNc: Denies possibility of . Negative vaginal discharge. MUSCULOSKELETAL: Negative for muscle aches, swelling, arthritis, and arthralgias. NEUROLOGIC: Negative for stroke or TIA. ENDOCRINE: Negative for thyroid problems. SKIN: Negative for rash or itching. PSYCHIATRIC: Negative history for depression and anxiety Past Medical History Past Medical History: Asthma, Diabetes Mellitus, Eye Disorder, GERD/Reflux, Hyperlipidemia, Hypertension, Pneumonia, Renal Disease Additional Past Medical History / Comment(s): Recent sinus infection treated with antibiotic, IDDM type II, neuropathy bilateral feet, past acute hyperosmolar ketotic diabetic state, CKD stage III, retinal damage L eye with partial vision loss and loss of depth perception, iron anemia, pancreatitis, stomach ulcer, hiatal hernia, bronchitis, pneumonia as a child, migraines in the past, vitamin D deficiency, facial cellulitis/sepsis with MRSA infection, edema with steroid use, past r ankle fracture. History of Any Multi-Drug Resistant Organisms: MRSA Year Discovered:: 04/19/18 MDRO Source:: face Past Surgical History: Section, Uterine Ablation Additional Past Surgical History / Comment(s): C/S x 4, cyst removed from fo rehead, EGD, left cataract with lens implant then retinal surgery d/t detachment, L cheek abscesses incision and drainages. Past Anesthesia/Blood Transfusion Reactions: Motion Sickness, Postoperative Nausea & Vomiting (PONV) Smoking Status: Never smoker - Past Family History Father Family Medical History: Cancer Additional Family Medical History / Comment(s): cancerous polyp Mother Family Medical History: Hypertension Additional Family Medical History / Comment(s): Mother had irregular heartbeat and boarderline diabetes. Medications and Allergies Home Medications Medication Instructions Recorded Confirmed Type Albuterol Sulfate [Proair Hfa] 2 puff INHALATION RT-Q4H PRN 02/25/17 10/16/18 History Citalopram Hydrobromide [CeleXA] 40 mg PO DAILY 02/25/17 10/16/18 History Gabapentin 600 mg PO TID 02/25/17 10/16/18 History Fluticasone Nasal [place] [Flonase 1 - 2 spray EA NOSTRIL HS PRN 08/15/17 10/16/18 History Nasal [place]] Albuterol Nebulized [Ventolin 2.5 mg INHALATION RT-QID PRN 11/14/17 10/16/18 History Nebulized] Cetirizine HCl [Zyrtec] 10 mg PO DAILY 11/14/17 10/16/18 History Gemfibrozil [Lopid] 600 mg PO BID 11/14/17 10/16/18 History cloNIDine HCL [Catapres] 0.2 mg PO TID #90 tab 11/20/17 10/16/18 Rx ALPRAZolam [Xanax] 0.5 mg PO DAILY PRN 10/16/18 10/16/18 History Carvedilol [Coreg] 25 mg PO BID 10/16/18 10/16/18 History Furosemide [Lasix] 40 mg PO DAILY 10/16/18 10/16/18 History Insulin Aspart Protam & Aspart 25 unit SQ AC-BRKFST 10/16/18 10/16/18 History [NovoLOG MIX 70-30 Flexpen] Insulin Aspart Protam & Aspart 35 unit SQ AC-SUPPER 10/16/18 10/16/18 History [NovoLOG MIX 70-30 Flexpen] Pantoprazole Sodium [Protonix] 40 mg PO DAILY 10/16/18 10/16/18 History traZODone HCL [Desyrel] 100 mg PO HS 10/16/18 10/16/18 History Allergies Allergy/AdvReac Type Severity Reaction Status Date / Time adhesive tape Allergy Itching/swe Verified 10/16/18 10:35 lling hydrocodone [From [place]] Allergy Hallucinati Verified 10/16/18 10:35 ons/vomitin g measles, mumps, and rubella Allergy Rash/Hives Verified 10/16/18 10:35 vaccine Penicillins Allergy Anaphylaxis Verified 10/16/18 10:35 shellfish derived [Shrimp] Allergy Rash/Hives Verified 10/16/18 10:35 Sulfa (Sulfonamide Allergy Anaphylaxis Verified 10/16/18 10:35 Antibiotics) Physical Exam Vitals: Vital Signs Temp Pulse Pulse Resp BP BP BP 10/17/18 13:02 88 10/17/18 12:51 84 10/17/18 12:50 98.6 F 70 18 133/68 10/17/18 08:58 80 10/17/18 08:45 80 10/17/18 05:10 99.2 F 78 20 159/85 10/16/18 22:14 83 10/16/18 22:05 80 10/16/18 21:25 97.6 F 94 20 176/85 10/16/18 14:47 99.6 F 85 18 189/84 10/16/18 14:29 86 16 166/87 Pulse Ox 10/17/18 13:02 10/17/18 12:51 10/17/18 12:50 92 L 10/17/18 08:58 10/17/18 08:45 10/17/18 05:10 93 L 10/16/18 22:14 10/16/18 22:05 10/16/18 21:25 94 L 10/16/18 14:47 96 10/16/18 14:29 94 L Intake and Output 10/16/18 10/17/18 10/17/18 22:59 06:59 14:59 Intake Total 300 1540 Balance 300 1540 Intake: Intake, IV Titration 1300 Amount Sodium Chloride 0.9% 1, 1300 000 ml @ 100 mls/hr IV . Q10H [facility] Rx#:[id number] Oral 300 240 Other: Voiding Method Toilet # Voids 1 2 3 General appearance: The patient is alert, oriented, in no acute distress. HET: Head is normocephalic and atraumatic. Pupils are equal and reactive. Oropharynx is clear without lesions. Neck: Supple without lymphadenopathy. Trachea midline. Heart: S1 S2. Regular rate and rhythm. Lungs: No crackles or wheezes are heard. Abdomen: Soft, mild upper abdominal tenderness, nondistended with bowel sounds. No peritoneal signs. No palpable organomegaly or masses. Extremities: Normal skin color and turgor. No cyanosis, rash, ulceration, cl ubbing, or edema. Radial and pedal pulses are 2/4 bilaterally. Neurological: No focal deficits. Strength and sensation are grossly intact. Results CBC & Chem 7: 10/16/18 10:39 10/16/18 10:39 Labs: Abnormal Lab Results - Last 24 Hours (Table) 10/16/18 10/16/18 10/16/18 Range/Units 10:39 16:35 20:04 POC Glucose (mg/dL) 184 H 108 H (75-99) mg/dL LDL Cholesterol, Calc 124 H (0-99) mg/dL HDL Cholesterol 37 L (40-60) mg/dL 10/17/18 10/17/18 10/17/18 Range/Units 02:02 06:59 11:57 POC Glucose (mg/dL) 135 H 148 H 159 H (75-99) mg/dL LDL Cholesterol, Calc (0-99) mg/dL HDL Cholesterol (40-60) mg/dL Abdominal x-ray: report reviewed (Dr. Aly) Assessment and Plan (1) Acute pancreatitis Narrative/Plan: 53-year-old female with a history of multiple nonalcoholic episodes of pancreatitis presents with acute pancreatitis etiology unclear. History of peptic ulcer disease presently no evidence of active GI bleed or symptoms of indigestion GERD. Consideration for underlying autoimmune pathology needs to be considered. Current Visit: No Status: Acute Code(s): K85.90 - ACUTE PANCREATITIS WITHOUT NECROSIS OR INFECTION, UNSP SNOMED Code(s): 466594874 Plan: 1. Clinically she is feeling better. Will obtain pancreatic enzymes in the a.m . Patient was advised outpatient follow-up in 2-[address] Nazario for discussion of possible outpatient EUS versus MRI pancreas. We'll obtain CASTILLO and IgG subclass 1-4. Will follow with you. Thank you for this kind referral and the opportunity to participate in the care of your patient. This consultation was discussed with Dr. Aly. The impression and plan of care have been directed as dictated.
--- NOTE | 2018-10-17 14:08 | PN ---
PROGRESS NOTE CHIEF COMPLAINT: Pancreatitis. HISTORY OF PRESENT ILLNESS: This lady is doing fairly well and pain is a little bit better. Triglycerides were not particularly elevated, which was thought to have been a contributor to her pancreatitis. PHYSICAL EXAM: Abdomen is protuberant and she is a little bit tender over the epigastrium. Chest is clear. Cardiac exam is normal. Abdomen is soft, nontender otherwise. IMPRESSION: Pancreatitis. PLAN: Continue with conservative management and follow up clinical findings and laboratory studies. MMODL / IJN: [id number] /
[2018-10-17 14:37] LABS: Hemoglobin A1C 9.9 % (4.0-6.0)
[2018-10-17 17:52] LABS: Glucose,Whole Blood 179 mg/dL (75-99)
[2018-10-17] MEDS: MORPHINE SULFATE 4 MG/ML SYRINGE IV PRN (17:54)
[2018-10-17] MEDS: traZODone HCL 100 MG TAB PO SCH (20:20)
[2018-10-17] MEDS: FENOFIBRATE 160 MG TAB PO SCH (20:20)
[2018-10-17 20:53] LABS: Glucose,Whole Blood 80 mg/dL (75-99)
[2018-10-18] MEDS ORDERED: ACETAMINOPHEN TAB 325 MG TAB PO PRN (05:08)
[2018-10-18] MEDS: SODIUM CHLORIDE 0.9% 1,000 ML IV SCH ×2 (05:16→16:30)
[2018-10-18 07:12] LABS: Glucose,Whole Blood 62 mg/dL (75-99)
[2018-10-18 07:32] LABS: Glucose,Whole Blood 83 mg/dL (75-99)
[2018-10-18] MEDS: ALBUTEROL NEBULIZED 2.5 MG/3 ML INHALATION PRN ×4 (07:36→21:52)
[2018-10-18] MEDS: CARVEDILOL 12.5 MG TAB PO SCH ×2 (10:01→16:31)
[2018-10-18] MEDS: FUROSEMIDE 40 MG TAB PO SCH (10:01)
[2018-10-18] MEDS: PANTOPRAZOLE 40 MG TABLET PO SCH (10:01)
[2018-10-18] MEDS: LORATADINE 10 MG TAB PO SCH (10:02)
[2018-10-18 10:08] LABS: Glucose,Whole Blood 150 mg/dL (75-99)
[2018-10-18] MEDS: cloNIDine HCL 0.2 MG TAB PO SCH ×3 (10:10→21:15)
[2018-10-18] MEDS: CITALOPRAM HYDROBROMIDE 20 MG TAB PO SCH (10:12)
[2018-10-18] MEDS: INSULN ASP PRT/INSULIN ASPART 100 UNIT/ML 10 ML VIAL SQ SCH ×2 (10:15→18:18)
[2018-10-18] MEDS: GABAPENTIN 300 MG CAP PO SCH ×3 (10:16→21:15)
--- NOTE | 2018-10-18 11:44 | P.PN ---
Subjective Progress Note Date: 10/18/18 Principal diagnosis: Pancreatitis T-max 102.8 this morning patient reports increased wheezing productive cough with phlegm. Denies abdominal pain. Influenza not detected. Lipase normal 298. Objective - Vital Signs Vital signs: Vital Signs Temp 98.9 F 10/18/18 10:55 Pulse 76 10/18/18 11:32 Resp 20 10/18/18 09:50 BP 161/74 10/18/18 09:50 Pulse Ox 95 10/18/18 09:50 Intake & Output 10/17/18 10/18/18 10/18/18 18:59 06:59 18:59 Intake Total 400 200 Balance 400 200 Weight 108.862 kg Intake: Oral 400 200 Other: Voiding Method Toilet # Voids 2 1 - Exam General appearance: The patient is alert, oriented, in no acute distress. HET: Head is normocephalic and atraumatic. Pupils are equal and reactive. Oropharynx is clear without lesions. Neck: Supple without lymphadenopathy. Trachea midline. Heart: S1 S2. Regular rate and rhythm. Lungs: Bilateral expiratory wheezes. Abdomen: Soft, nontender, nondistended with bowel sounds. No peritoneal signs. No palpable organomegaly or masses. Extremities: Normal skin color and turgor. No cyanosis, rash, ulceration, clubbing, or edema. Radial and pedal pulses are 2/4 bilaterally. Neurological: No focal deficits. Strength and sensation are grossly intact. - Labs CBC & Chem 7: 10/16/18 10:39 10/16/18 10:39 Labs: Abnormal Lab Results - Last 24 Hours (Table) 10/16/18 10/17/18 10/17/18 Range/Units 10:39 11:57 17:12 POC Glucose (mg/dL) 159 H 179 H (75-99) mg/dL Hemoglobin A1c 9.9 H (4.0-6.0) % 10/18/18 10/18/18 Range/Units 06:59 10:06 POC Glucose (mg/dL) 62 L 150 H (75-99) mg/dL Hemoglobin A1c (4.0-6.0) % Assessment and Plan (1) Acute pancreatitis Narrative/Plan: 53-year-old female with a history of multiple nonalcoholic episodes of pancreatitis presents with acute pancreatitis etiology unclear. History of peptic ulcer disease presently no evidence of active GI bleed or symptoms of indigestion GERD. Consideration for underlying autoimmune pathology needs to be considered. Current Visit: No Status: Acute Code(s): K85.90 - ACUTE PANCREATITIS WITHOUT NECROSIS OR INFECTION, UNSP SNOMED Code(s): 705979412 (2) Fever Current Visit: Yes Status: Acute Code(s): R50.9 - FEVER, UNSPECIFIED SNOMED Code(s): 040872140 Plan: 1. Development of fever with upper respiratory symptoms productive cough phlegm expiratory wheezes. Chest x-ray ordered. CBC BMP in a.m. We'll continue to follow. CASTILLO subclass 1-for IgG pending. Assessment and plan a care discussed with Dr. Aly
[2018-10-18 12:11] LABS: Glucose,Whole Blood 125 mg/dL (75-99)
[2018-10-18 13:03] LABS: Anisocytosis Slight; Basophils % (A) 0 %; Eosinophils # (A) 1.5 k/uL (0-0.7); Eosinophils % (A) 21 %; HCT 28.3 % (34.0-46.0); Lymphocytes # (A) 1.3 k/uL (1.0-4.8); Lymphocytes % (A) 18 %; MCH 26.8 pg (25.0-35.0); MCHC 31.1 g/dL (31.0-37.0); Mean Platelet Volume 6.9; Monocytes # (A) 0.3 k/uL (0-1.0); Monocytes % (A) 5 %; Neutrophils # (A) 3.8 k/uL (1.3-7.7); Neutrophils % (A) 54 %; Platelet Count 195 k/uL (150-450); RBC 3.29 m/uL (3.80-5.40); RDW 16.3 % (11.5-15.5); WBC 7.1 k/uL (3.8-10.6)
[2018-10-18 13:10] LABS: HGB 8.8 gm/dL (11.4-16.0); MCV 86.1 fL (80.0-100.0)
[2018-10-18 13:44] LABS: Poikilocytosis (M) Present
[2018-10-18 13:49] LABS: Albumin 2.8 g/dL (3.5-5.0); Calcium 8.5 mg/dL (8.4-10.2); Potassium 3.9 mmol/L (3.5-5.1); Total Bilirubin 0.2 mg/dL (0.2-1.3); Total Protein 5.4 g/dL (6.3-8.2)
[2018-10-18 17:17] LABS: Glucose,Whole Blood 170 mg/dL (75-99)
--- NOTE | 2018-10-18 17:33 | XR ---
EXAMINATION TYPE: XR chest 2V DATE OF EXAM: 10/18/2018 COMPARISON: 04/24/2018 HISTORY: Short of breath TECHNIQUE: Frontal and lateral views of the chest are obtained. FINDINGS: Heart and mediastinum are normal. Lungs are clear. There is question of tiny pleural effus ions at the posterior lung base on the lateral view. IMPRESSION: Possible tiny pleural effusions. Normal heart. No pulmonary infiltrates.
--- NOTE | 2018-10-18 19:04 | PN ---
PROGRESS NOTE CHIEF COMPLAINT: Pancreatitis. HISTORY OF PRESENT ILLNESS: This lady's abdominal pain is improving. However, she did have a temperature last night of 100.5. She states she has a little bit of congestion in the lungs, but no purulent sputum production. No chest pain. PHYSICAL EXAM: Chest is fairly clear. Occasional rhonchi and rales. Cardiac exam is normal. Abdomen is soft, nontender. IMPRESSION: 1. Pancreatitis. 2. Fever, undetermined etiology. 3. Renal failure with a BUN of 40 and creatinine 2.23. 4. Uncontrolled diabetes. PLAN: 1. Blood cultures. 2. Repeat laboratory studies. 3. Chest x-ray. 4. UA. MMODL / IJN: [id number] /
[2018-10-18 20:44] LABS: Glucose,Whole Blood 166 mg/dL (75-99)
[2018-10-18] MEDS: traZODone HCL 100 MG TAB PO SCH (21:15)
[2018-10-18] MEDS: FENOFIBRATE 160 MG TAB PO SCH (21:15)
[2018-10-18 23:41] LABS: Glucose,Whole Blood 54 mg/dL (75-99)
[2018-10-18 23:52] LABS: Glucose,Whole Blood 59 mg/dL (75-99)
[2018-10-19 00:10] LABS: Glucose,Whole Blood 78 mg/dL (75-99)
[2018-10-19] MEDS: SODIUM CHLORIDE 0.9% 1,000 ML IV SCH ×3 (05:49→21:27)
[2018-10-19 07:10] LABS: Glucose,Whole Blood 191 mg/dL (75-99)
[2018-10-19] MEDS: ALBUTEROL NEBULIZED 2.5 MG/3 ML INHALATION PRN ×4 (07:16→20:00)
[2018-10-19] MEDS: CITALOPRAM HYDROBROMIDE 20 MG TAB PO SCH (08:47)
[2018-10-19] MEDS: GABAPENTIN 300 MG CAP PO SCH ×3 (08:48→21:01)
[2018-10-19] MEDS: FUROSEMIDE 40 MG TAB PO SCH (08:48)
[2018-10-19] MEDS: CARVEDILOL 12.5 MG TAB PO SCH ×2 (08:48→16:12)
[2018-10-19] MEDS: PANTOPRAZOLE 40 MG TABLET PO SCH (08:48)
[2018-10-19] MEDS: LORATADINE 10 MG TAB PO SCH (08:48)
[2018-10-19] MEDS: cloNIDine HCL 0.2 MG TAB PO SCH ×3 (08:48→21:00)
[2018-10-19] MEDS: INSULN ASP PRT/INSULIN ASPART 100 UNIT/ML 10 ML VIAL SQ SCH ×3 (08:49→21:34)
--- NOTE | 2018-10-19 09:31 | P.PN ---
Subjective Progress Note Date: 10/19/18 Principal diagnosis: Pancreatitis Low grade fevers. T-max 100.5. Feels pressure in her sinuses. CASTILLO negative. Denies abdominal pain. Influenza not detected. Hemoglobin yesterday 8.8 down from 12.3 without GI bleeding however patient's average hemoglobin ranges between 7-10 range. Chest x-ray no pulmonary infiltrates. Objective - Vital Signs Vital signs: Vital Signs Temp 97.0 F L 10/19/18 05:00 Pulse 72 10/19/18 07:29 Resp 20 10/19/18 05:00 BP 170/92 10/19/18 05:00 Pulse Ox 93 L 10/19/18 05:00 Intake & Output 10/18/18 10/19/18 10/19/18 18:59 06:59 18:59 Intake Total 400 500 Balance 400 500 Intake: Oral 400 500 Other: Voiding Method Toilet # Voids 2 2 - Exam General appearance: The patient is alert, oriented, in no acute distress. HET: Head is normocephalic and atraumatic. Pupils are equal and reactive. Oropharynx is clear without lesions. Neck: Supple without lymphadenopathy. Trachea midline. Heart: S1 S2. Regular rate and rhythm. Lungs: Bilateral expiratory wheezes. Abdomen: Soft, nontender, nondistended with bowel sounds. No peritoneal signs. No palpable organomegaly or masses. Extremities: Normal skin color and turgor. No cyanosis, rash, ulceration, clubbing, or edema. Radial and pedal pulses are 2/4 bilaterally. Neurological: No focal deficits. Strength and sensation are grossly intact. - Labs CBC & Chem 7: 10/18/18 09:56 10/18/18 09:56 Labs: Abnormal Lab Results - Last 24 Hours (Table) 10/18/18 10/18/18 10/18/18 Range/Units 09:56 09:56 10:06 RBC 3.29 L (3.80-5.40) m/uL Hgb 8.8 L D (11.4-16.0) gm/dL Hct 28.3 L (34.0-46.0) % RDW 16.3 H (11.5-15.5) % Eosinophils # 1.5 H (0-0.7) k/uL Chloride 111 H (98-107) mmol/L BUN 35 H (7-17) mg/dL Creatinine 2.39 H (0.52-1.04) mg/dL Glucose 131 H (74-99) mg/dL POC Glucose (mg/dL) 150 H (75-99) mg/dL Total Protein 5.4 L (6.3-8.2) g/dL Albumin 2.8 L (3.5-5.0) g/dL 10/18/18 10/18/18 10/18/18 Range/Units 11:53 17:08 20:03 RBC (3.80-5.40) m/uL Hgb (11.4-16.0) gm/dL Hct (34.0-46.0) % RDW (11.5-15.5) % Eosinophils # (0-0.7) k/uL Chloride (98-107) mmol/L BUN (7-17) mg/dL Creatinine (0.52-1.04) mg/dL Glucose (74-99) mg/dL POC Glucose (mg/dL) 125 H 170 H 166 H (75-99) mg/dL Total Protein (6.3-8.2) g/dL Albumin (3.5-5.0) g/dL 10/18/18 10/18/18 10/19/18 Range/Units 23:40 23:51 07:05 RBC (3.80-5.40) m/uL Hgb (11.4-16.0) gm/dL Hct (34.0-46.0) % RDW (11.5-15.5) % Eosinophils # (0-0.7) k/uL Chloride (98-107) mmol/L BUN (7-17) mg/dL Creatinine (0.52-1.04) mg/dL Glucose (74-99) mg/dL POC Glucose (mg/dL) 54 L 59 L 191 H (75-99) mg/dL Total Protein (6.3-8.2) g/dL Albumin (3.5-5.0) g/dL Assessment and Plan (1) Acute pancreatitis Narrative/Plan: 53-year-old female with a history of multiple nonalcoholic episodes of pancreatitis presents with acute pancreatitis etiology unclear. History of peptic ulcer disease presently no evidence of active GI bleed or symptoms of indigestion GERD. Consideration for underlying autoimmune pathology needs to be considered. Current Visit: No Status: Acute Code(s): K85.90 - ACUTE PANCREATITIS WITHOUT NECROSIS OR INFECTION, UNSP SNOMED Code(s): 517858424 (2) Fever Narrative/Plan: Improving Current Visit: Yes Status: Acute Code(s): R50.9 - FEVER, UNSPECIFIED SNOMED Code(s): 461843018 (3) Anemia Narrative/Plan: Acute on chronic no active GI bleeding. Current Visit: No Status: Acute Code(s): D64.9 - ANEMIA, UNSPECIFIED SNOMED Code(s): 548170979 Plan: 1. Patient states most of her discomfort is in her face sinuses. No episodes of hematemesis hematochezia melena. No abdominal pain. Tolerating diet. Daily CBC BMP in a.m. continue Protonix 40 mg daily. We'll continue to follow. CASTILLO negative. Subclass 1-for IgG pending. Patient was advised to follow up in GI office in 2-3 weeks for reevaluation. Assessment and plan a care discussed with Dr. Aly
[2018-10-19 09:58] LABS: Anisocytosis Slight; Basophils % (A) 0 %; Eosinophils # (A) 1.7 k/uL (0-0.7); Eosinophils % (A) 26 %; HCT 29.5 % (34.0-46.0); HGB 9.5 gm/dL (11.4-16.0); Lymphocytes # (A) 0.9 k/uL (1.0-4.8); Lymphocytes % (A) 14 %; MCH 27.4 pg (25.0-35.0); MCHC 32.4 g/dL (31.0-37.0); MCV 84.6 fL (80.0-100.0); Mean Platelet Volume 6.5; Monocytes # (A) 0.3 k/uL (0-1.0); Monocytes % (A) 4 %; Neutrophils # (A) 3.5 k/uL (1.3-7.7); Neutrophils % (A) 54 %; Platelet Count 195 k/uL (150-450); RBC 3.48 m/uL (3.80-5.40); RDW 16.3 % (11.5-15.5); WBC 6.5 k/uL (3.8-10.6)
[2018-10-19 11:20] LABS: Glucose,Whole Blood 197 mg/dL (75-99)
[2018-10-19] MEDS ORDERED: SODIUM CHLORIDE 0.65% NASAL SPRAY 44 ML BTL NASAL PRN (11:42)
[2018-10-19 12:22] LABS: Poikilocytosis (M) Present
[2018-10-19 12:33] LABS: IgG Subclass 3 12.5 mg/dL (11.0-85.0)
--- NOTE | 2018-10-19 15:49 | HP ---
HISTORY AND PHYSICAL CHIEF COMPLAINT: Abdominal pain and pancreatitis. HISTORY OF PRESENT ILLNESS: This is the first known admission for this 53-year-old obese white female. She came to the emergency room with epigastric pain and was found to have a lipase over 1000. She had similar episode about a year ago. She also was treated for asthma and diabetes mellitus. In the emergency room, she had a white count 16,900. BUN was 40, creatinine of 2.23, blood sugar was 231. Hemoglobin A1c was 9.9. Lipase is 5821. Triglycerides were normal at 103. REVIEW OF SYSTEMS: Denied any headaches, neurologic problems, difficulty with vision or hearing, chest pain, cough, hemoptysis, palpitations, heart disease, angina, infarctions, orthopnea, PND, nausea, vomiting, hematemesis, melena, hematochezia, jaundice, hepatitis, hematuria, frequency, urgency, renal failure, etc. Past medical history, family history, personal and social histories reveal that she is ALLERGIC to ERYTHROMYCIN, SULFA AND PENICILLIN. Surgically she has had 4 C-sections. She does not smoke. Her medications include albuterol nebulizers, Xanax, carvedilol, Zyrtec, Celexa, clonidine, fluticasone, Lasix, gabapentin, Gemfibrozil, NovoLog 70/30, Protonix and trazodone. PHYSICAL EXAM: Blood pressure 174/92, pulse 93, temperature 99.6, and blood pressure 174/92. General: She appeared to be obese, in no acute distress. Skin color is normal. Skin is warm, dry. Lymph nodes not enlarged. Head, ears, eyes, nose, mouth, and throat were normal. Chest was clear. Cardiac exam demonstrates sinus tachycardia and the abdomen is protuberant and tender over the epigastrium. Extremities are normal. Neurologically she is intact. IMPRESSION: 1. Pancreatitis. 2. Obesity. 3. Hypertension. 4. Insulin dependent diabetes mellitus. 5. Possible urinary tract infection. PLAN: 1. Bed rest. 2. IV fluids. 3. Monitor pancreatic enzymes. 4. Control diabetes. MMODL / IJN: [id number] /
[2018-10-19 17:26] LABS: Glucose,Whole Blood 85 mg/dL (75-99)
[2018-10-19 20:42] LABS: Glucose,Whole Blood 171 mg/dL (75-99)
[2018-10-19] MEDS: FENOFIBRATE 160 MG TAB PO SCH (21:00)
[2018-10-19] MEDS: traZODone HCL 100 MG TAB PO SCH (21:01)
--- NOTE | 2018-10-19 22:02 | PN ---
PROGRESS NOTE DATE OF SERVICE: 10/19/2018 CHIEF COMPLAINT: 1. Pancreatitis. 2. Fever of unknown origin. 3. Bronchitis. 4. Elevated blood sugars. HISTORY OF PRESENT ILLNESS: This lady is still feeling congested. Her blood sugars are fluctuating as well. She is also complaining of some frequency of urination. PHYSICAL EXAM: Chest is clear. The cardiac exam is normal. Abdomen is soft and less tender than it has been. IMPRESSION: 1. Pancreatitis. 2. Type 2 diabetes mellitus with poor control. 3. Fever, undetermined etiology, etiology unknown. 4. Possible bronchitis. PLAN: Increase activity and probably discharge in a day or 2. MMODL / IJN: [id number] /
[2018-10-20 02:27] LABS: Glucose,Whole Blood 152 mg/dL (75-99)
[2018-10-20] MEDS: CARVEDILOL 12.5 MG TAB PO SCH (05:18)
[2018-10-20] MEDS: cloNIDine HCL 0.2 MG TAB PO SCH (05:19)
[2018-10-20] MEDS: FUROSEMIDE 40 MG TAB PO SCH (05:19)
[2018-10-20] MEDS: SODIUM CHLORIDE 0.9% 1,000 ML IV SCH (05:21)
[2018-10-20] MEDS: ALBUTEROL NEBULIZED 2.5 MG/3 ML INHALATION PRN ×2 (07:17→10:57)
[2018-10-20 07:31] LABS: Glucose,Whole Blood 103 mg/dL (75-99)
[2018-10-20] MEDS: GABAPENTIN 300 MG CAP PO SCH (07:57)
[2018-10-20] MEDS: CITALOPRAM HYDROBROMIDE 20 MG TAB PO SCH (07:57)
[2018-10-20] MEDS: LORATADINE 10 MG TAB PO SCH (07:58)
[2018-10-20] MEDS: INSULN ASP PRT/INSULIN ASPART 100 UNIT/ML 10 ML VIAL SQ SCH (07:58)
[2018-10-20] MEDS: PANTOPRAZOLE 40 MG TABLET PO SCH (07:58)
[2018-10-20 08:46] LABS: Anisocytosis Slight; HCT 30.2 % (34.0-46.0); MCH 27.4 pg (25.0-35.0); MCHC 33.1 g/dL (31.0-37.0); MCV 82.9 fL (80.0-100.0); Mean Platelet Volume 6.8; Platelet Count 240 k/uL (150-450); RBC 3.64 m/uL (3.80-5.40); RDW 16.7 % (11.5-15.5); WBC 6.6 k/uL (3.8-10.6)
[2018-10-20 09:00] LABS: Albumin 3.6 g/dL (3.5-5.0); Calcium 9.6 mg/dL (8.4-10.2); Potassium 3.9 mmol/L (3.5-5.1); Total Bilirubin 0.4 mg/dL (0.2-1.3); Total Protein 6.3 g/dL (6.3-8.2)
[2018-10-20 11:52] LABS: Glucose,Whole Blood 79 mg/dL (75-99)
[2018-10-20 12:25] LABS: Eosinophils # (M) 1.78 k/uL (0-0.7); Lymphocytes # (M) 1.12 k/uL (1.0-4.8); Metamyelocytes # (M) 0.07 k/uL (0); Metamyelocytes % 1 %; Neutrophils % (M) 50 %; Nucleated Red Blood Cells 0 /100 WBC (0-0); Total Cells Counted 200
[2018-10-20 14:33] VITALS: BP 156/77; PULSE 77; RESP 16; TEMP 97
[2018-10-20] MEDS ORDERED: INSULN ASP PRT/INSULIN ASPART 100 UNIT/ML 10 ML VIAL SQ SCH (17:30)
--- NOTE | 2018-10-20 19:47 | DS ---
DISCHARGE SUMMARY CHIEF COMPLAINT: Abdominal pain. HISTORY OF PRESENT ILLNESS AND PHYSICAL EXAM: Details of this lady's history and physical can be found in the initial workup. LABORATORY STUDIES: While she was in a hospital she had laboratory studies, details of which can be found in the laboratory section of her chart. COURSE IN HOSPITAL: After admission she was placed on bedrest, started on intravenous fluids and conservative management for pancreatitis. Her pain slowly improved and then she developed shortness of breath, chest discomfort and congestion and was thought to have developed bronchitis or pneumonitis. This improved and she was doing well. It was felt that she was able to go home on the . She will go home on usual activity, diet, and most of her usual medications. Her NovoLog 70/30 will be changed to 20 units before breakfast and 20 before supper. Her blood pressure is also high, so she will be put on Levaquin 400 mg once a day. She will follow up in several days in the office. FINAL DIAGNOSES: 1. Pancreatitis. 2. Uncontrolled insulin-dependent type 2 diabetes mellitus. 3. Bronchitis. 4. Anemia. OPERATIONS: None. CONSULTATION: None. She is improved. MMODL / IJN: [id number] /
[2018-10-21] MEDS ORDERED: LISINOPRIL 20 MG TAB PO SCH (09:00)
== END 2018-10-20 14:15 | disposition home or self-care (01) | DRG 439 ==
LOC: EC 10:14 → 4MS4W 12:28
PROVIDERS: ADMIT Family Medicine; ATTEND Family Medicine
DX: K85.90 Acute pancreatitis without necrosis or infection, unspecified (principal); Z68.41 Body mass index [BMI] 40.0-44.9, adult; D50.9 Iron deficiency anemia, unspecified; E11.22 Type 2 diabetes mellitus with diabetic chronic kidney disease; E11.319 Type 2 diabetes mellitus with unspecified diabetic retinopathy without macular edema; E11.40 Type 2 diabetes mellitus with diabetic neuropathy, unspecified; E11.65 Type 2 diabetes mellitus with hyperglycemia; E66.9 Obesity, unspecified; E78.5 Hyperlipidemia, unspecified; H54.7 Unspecified visual loss; I12.9 Hypertensive chronic kidney disease with stage 1 through stage 4 chronic kidney disease, or unspecified chronic kidney disease; J40 Bronchitis, not specified as acute or chronic; K21.9 Gastro-esophageal reflux disease without esophagitis; N18.3 Chronic kidney disease, stage 3 (moderate); Z79.4 Long term (current) use of insulin; Z79.899 Other long term (current) drug therapy; Z82.49 Family history of ischemic heart disease and other diseases of the circulatory system; Z83.3 Family history of diabetes mellitus; Z87.11 Personal history of peptic ulcer disease; Z88.2 Allergy status to sulfonamides; Z88.7 Allergy status to serum and vaccine; Z88.5 Allergy status to narcotic agent; Z88.0 Allergy status to penicillin; Z91.013 Allergy to seafood; Z80.0 Family history of malignant neoplasm of digestive organs; Z87.01 Personal history of pneumonia (recurrent); Z98.42 Cataract extraction status, left eye; Z96.1 Presence of intraocular lens; K44.9 Diaphragmatic hernia without obstruction or gangrene; Z88.1 Allergy status to other antibiotic agents; Z86.14 Personal history of Methicillin resistant Staphylococcus aureus infection
CPT/HCPCS: 36415; 71046; 74018; 80053; 80061; 81001; 82150; 82787; 83036; 83690; 85025; 86038; 87502; 90686; 94640; 96361; 96374; 96375; 96376; 99285

== ENCOUNTER → 2018-11-05 | Outpatient (CLI) | payer BC, MEDICARE ==
--- NOTE | 2018-11-05 09:24 | NM ---
Nuclear medicine hepatobiliary scan. HISTORY: Pain. DOSAGE: The patient received 8 ounces Ensure plus and 5 mCi of Technetium 99m Choletec. FINDINGS: There is normal hepatic extraction. The gallbladder is seen by 15 minutes. There is bilia ry to bowel clearance by 60 minutes. Ejection fraction is 77%. IMPRESSION: 1. Normal filling of the gallbladder with radiotracer. 2. Ejection fraction 77%. Correlate clinically.
== END ==
LOC: RADNMMAIN 06:43
PROVIDERS: ATTEND Family Medicine
DX: R10.84 Generalized abdominal pain (principal); K85.90 Acute pancreatitis without necrosis or infection, unspecified; Z88.2 Allergy status to sulfonamides; Z88.8 Allergy status to other drugs, medicaments and biological substances
CPT/HCPCS: 78226; A9537

== ENCOUNTER 2018-12-02 21:18 | Inpatient (IN) | payer BC, MEDICARE ==
[2018-12-02] MEDS ORDERED: ONDANSETRON 4 MG/2 ML VIAL IVP STA (22:14)
[2018-12-02] MEDS ORDERED: SODIUM CHLORIDE 0.9% 2,000 ML IV STA (22:14)
--- NOTE | 2018-12-02 22:16 | ED ---
General Adult HPI - General Chief complaint: Nausea/Vomiting/Diarrhea Stated complaint: Ankle injury/diarrhea Time Seen by Provider: 12/02/18 21:45 Source: patient Mode of arrival: ambulatory Limitations: no limitations - History of Present Illness Initial comments: Alexandra is a 53-year-old female who presents to the emergency department today via private vehicle for evaluation of multiple complaints. Patient reports that 3 days ago she was visiting [place] when she had a mechanical trip and fall she had pain to her left knee and right ankle. She was evaluated in emergency department there and told that she had refractured her right ankle and that she may have dislocated her left patella however it resolved. Patient was given a left knee immobilizer and a right walking boot. Patient reports that she was prescribed pain medications which caused nausea and vomiting. She reports that since she was discharged from the emergency department she has had diarrhea. She reports she's had multiple loose stools daily. They've been in the car for 2 days driving home from [place]. - Related Data Home Medications Medication Instructions Recorded Confirmed Albuterol Sulfate [Proair Hfa] 2 puff INHALATION RT-Q4H PRN 02/25/17 12/02/18 Citalopram Hydrobromide [CeleXA] 40 mg PO DAILY 02/25/17 12/02/18 Gabapentin 600 mg PO TID 02/25/17 12/02/18 Fluticasone Nasal [place] [Flonase 1 - 2 spray EA NOSTRIL HS PRN 08/15/17 12/02/18 Nasal [place]] Albuterol Nebulized [Ventolin 2.5 mg INHALATION RT-QID PRN 11/14/17 12/02/18 Nebulized] Cetirizine HCl [Zyrtec] 10 mg PO DAILY 11/14/17 12/02/18 Gemfibrozil [Lopid] 600 mg PO BID 11/14/17 12/02/18 ALPRAZolam [Xanax] 0.5 mg PO DAILY PRN 10/16/18 12/02/18 Carvedilol [Coreg] 25 mg PO BID 10/16/18 12/02/18 Furosemide [Lasix] 40 mg PO DAILY 10/16/18 12/02/18 Pantoprazole Sodium [Protonix] 40 mg PO DAILY 10/16/18 12/02/18 traZODone HCL [Desyrel] 100 mg PO HS 10/16/18 12/02/18 Insulin Glargine,Hum.rec.anlog 30 unit SQ DAILY 12/02/18 12/02/18 [Lantus Solostar] Semaglutide [Ozempic] 0.25 mg SQ MO 12/02/18 12/02/18 Previous Rx's Medication Instructions Recorded cloNIDine HCL [Catapres] 0.2 mg PO TID #90 tab 11/20/17 Insuln Asp Prt/Insulin Aspart 20 unit SQ AC-BID #1 vial 10/20/18 [NovoLOG MIX 70-30 VIAL] Allergies Allergy/AdvReac Type Severity Reaction Status Date / Time adhesive tape Allergy Itching/swe Verified 12/02/18 21:55 lling hydrocodone [From [place]] Allergy Hallucinati Verified 12/02/18 21:55 ons/vomitin g measles, mumps, and rubella Allergy Rash/Hives Verified 12/02/18 21:55 vaccine Penicillins Allergy Anaphylaxis Verified 12/02/18 21:55 shellfish derived [Shrimp] Allergy Rash/Hives Verified 12/02/18 21:55 Sulfa (Sulfonamide Allergy Anaphylaxis Verified 12/02/18 21:55 Antibiotics) Review of Systems ROS Statement: Those systems with pertinent positive or pertinent negative responses have been documented in the HPI. ROS Other: All systems not noted in ROS Statement are negative. 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 History of Any Multi-Drug Resistant Organisms: MRSA Date of last positivie culture/infection: 04/19/18 MDRO Source:: face Past Surgical History: Section, Uterine Ablation Additional Past Surgical History / Comment(s): C/S x 4, cyst removed from forehead, EGD, left cataract with lens implant then retinal surgery d/t detachment, L cheek abscesses incision and drainages. Past Anesthesia/Blood Transfusion Reactions: Motion Sickness, Postoperative Nausea & Vomiting (PONV) Past Psychological History: Anxiety Smoking Status: Never smoker Past Alcohol Use History: None Reported Past Drug Use History: None Reported - Past Family History Father Family Medical History: Cancer Additional Family Medical History / Comment(s): cancerous polyp Mother Family Medical History: Hypertension Additional Family Medical History / Comment(s): Mother had irregular heartbeat and boarderline diabetes. General Exam - General Exam Comments Initial Comments: Physical Exam GENERAL: Obese, dehydrated HENT: Normocephalic, Atraumatic. EYES: PERRL, EOMI PULMONARY: Unlabored respirations. No audible rales rhonchi or wheezing was noted. CARDIOVASCULAR: There is a regular rate and rhythm without any murmurs gallops or rubs. ABDOMEN: Distended, tender to deep palpation SKIN: Dry : Deferred NEUROLOGIC: Patient is alert and oriented x3. Moving all extremities spontaneously MUSCULOSKELETAL: Right lower extremity in walking boot PSYCHIATRIC: Normal psychiatric evaluation Limitations: no limitations Course Vital Signs 12/02/18 21:34 Temperature 98.6 F Pulse Rate 100 Respiratory 18 Rate Blood Pressure 125/72 O2 Sat by Pulse 97 Oximetry Medical Decision Making - Medical Decision Making She was seen and evaluated history is obtained from the patient and at bedside Patient with multiple complaints including orthopedic pain in the left knee and right ankle concern for reinjury of the right ankle as well as persistent nausea vomiting diarrhea for 2 days to duration and concern for dehydration Labs and imaging ordered Labs reveal acute kidney injury patient's baseline creatinine is about 2 today at 2.84 with elevated BUN consistent with prerenal azotemia, 2 L IV fluid bolus was ordered, 150 mL's per hour ordered X-ray concerning for possible small bowel obstruction patient has no history of such as history of any abdominal surgeries, a computed tomography scan with contrast will be ordered NG tube was ordered due to gastric distention and persistent nausea Plan was discussed with the patient. Patient agreeable to plan for admission, NG tube and further observation. Patient's primary care physician Dr[facility] - Lab Data Result diagrams: 12/02/18 22:30 12/02/18 22:30 Lab Results 12/02/18 12/02/18 Range/Units 22:30 22:30 WBC 9.7 (3.8-10.6) k/uL RBC 4.46 (3.80-5.40) m/uL Hgb 12.2 (11.4-16.0) gm/dL Hct 37.6 (34.0-46.0) % MCV 84.2 (80.0-100.0) fL MCH 27.4 (25.0-35.0) pg MCHC 32.6 (31.0-37.0) g/dL RDW 16.4 H (11.5-15.5) % Plt Count 373 (150-450) k/uL Neutrophils % (Manual) 57 % Band Neutrophils % 4 % Lymphocytes % (Manual) 12 % Monocytes % (Manual) 10 % Eosinophils % (Manual) 13 % Myelocytes % 4 % Neutrophils # (Manual) 5.90 (1.3-7.7) k/uL Lymphocytes # (Manual) 1.16 (1.0-4.8) k/uL Monocytes # (Manual) 0.97 (0-1.0) k/uL Eosinophils # (Manual) 1.26 H (0-0.7) k/uL Myelocytes # (Manual) 0.39 H (0) k/uL Nucleated RBCs 0 (0-0) /100 WBC Manual Slide Review Performed Anisocytosis Slight Sodium 140 (137-145) mmol/L Potassium 3.8 (3.5-5.1) mmol/L Chloride 108 H (98-107) mmol/L Carbon Dioxide 20 L (22-30) mmol/L Anion Gap 12 mmol/L BUN 53 H (7-17) mg/dL Creatinine 3.83 H (0.52-1.04) mg/dL Est GFR (CKD-EPI)AfAm 15 (>60 ml/min/1.73 sqM) Est GFR (CKD-EPI)NonAf 13 (>60 ml/min/1.73 sqM) Glucose 180 H (74-99) mg/dL Calcium 9.8 (8.4-10.2) mg/dL Total Bilirubin 0.4 (0.2-1.3) mg/dL AST 8 L (14-36) U/L ALT 10 (9-52) U/L Alkaline Phosphatase 80 (38-126) U/L Total Protein 6.7 (6.3-8.2) g/dL Albumin 3.6 (3.5-5.0) g/dL Lipase 253 (23-300) U/L Disposition Clinical Impression: SBO (small bowel obstruction), ORALIA (acute kidney injury), Dehydration, Fibula fracture Disposition: ADMITTED IP TO THIS HOSP Condition: Stable Referrals: Robbie Nieves MD [Primary Care Provider] - 1-2 days
[2018-12-02 22:53] LABS: Anisocytosis Slight; HCT 37.6 % (34.0-46.0); HGB 12.2 gm/dL (11.4-16.0); MCH 27.4 pg (25.0-35.0); MCHC 32.6 g/dL (31.0-37.0); MCV 84.2 fL (80.0-100.0); Mean Platelet Volume 7.1; Platelet Count 373 k/uL (150-450); RBC 4.46 m/uL (3.80-5.40); RDW 16.4 % (11.5-15.5); WBC 9.7 k/uL (3.8-10.6)
[2018-12-02 23:05] LABS: Albumin 3.6 g/dL (3.5-5.0); Calcium 9.8 mg/dL (8.4-10.2); Potassium 3.8 mmol/L (3.5-5.1); Total Bilirubin 0.4 mg/dL (0.2-1.3); Total Protein 6.7 g/dL (6.3-8.2)
--- NOTE | 2018-12-02 23:27 | XR ---
EXAM: XR Abdomen, 1 View CLINICAL HISTORY: ITS.REASON XR Reason: abdominal pain TECHNIQUE: Frontal supine view of the abdomen/pelvis. COMPARISON: No relevant prior studies available. FINDINGS: Gastrointestinal tract: Possible small bowel dilatation in the left lower quadrant. Bones/joints: Unremarkable. IMPRESSION: Possible small bowel obstruction.
--- NOTE | 2018-12-02 23:28 | XR ---
EXAM: XR Right Ankle Complete, 3 or More Views CLINICAL HISTORY: ITS.REASON XR Reason: Pain TECHNIQUE: Frontal, lateral and oblique views of the right ankle. COMPARISON: No relevant prior studies available. FINDINGS: Soft tissue swelling around the ankle. No joint dislocation. Nonacute appearing nondisplaced fracture at the distal fibula. IMPRESSION: See above
[2018-12-02 23:45] LABS: Band Neutrophils % 4 %; Eosinophils # (M) 1.26 k/uL (0-0.7); Lymphocytes # (M) 1.16 k/uL (1.0-4.8); Monocytes # (M) 0.97 k/uL (0-1.0); Myelocytes # (M) 0.39 k/uL (0); Myelocytes % 4 %; Neutrophils % (M) 57 %; Nucleated Red Blood Cells 0 /100 WBC (0-0); Total Cells Counted 200
[2018-12-02] MEDS ORDERED: NALOXONE 0.4 MG/ML 1 ML VIAL IV PRN (23:51)
[2018-12-03 00:03] LABS: Appearance,Urine Cloudy (Clear); Bilirubin,Urine 1+ (Negative); Blood,Urine Negative (Negative); Color,Urine Yellow; Glucose,Urine (UA) Negative (Negative); Hyaline Casts,Urine 3 /lpf (0-2); Ketones,Urine Negative (Negative); Leukocyte Esterase,Urine Large (Negative); Nitrite,Urine Negative (Negative); PH, Urine 5.5 (5.0-8.0); Protein,Urine 2+ (Negative); RBC,Urine 13 /hpf (0-5); Specific Gravity,Urine 1.031 (1.001-1.035); Squamous Epithelial Cell,Urine 9 /hpf (0-4); WBC,Urine 27 /hpf (0-5)
[2018-12-03] MEDS: PANTOPRAZOLE 40 MG/10 ML VIAL IV SCH ×2 (00:05→07:24)
[2018-12-03] MEDS: SODIUM CHLORIDE 0.9% 1,000 ML IV SCH ×4 (00:06→19:35)
[2018-12-03] MEDS: MORPHINE SULFATE 4 MG/ML SYRINGE IV PRN ×3 (01:03→19:35)
[2018-12-03 02:42] VITALS: BMI 45.7
[2018-12-03 07:43] LABS: Glucose,Whole Blood 102 mg/dL (75-99)
[2018-12-03] MEDS: ONDANSETRON 4 MG/2 ML VIAL IVP PRN ×2 (08:06→21:58)
[2018-12-03 09:01] LABS: Albumin 2.7 g/dL (3.5-5.0); Calcium 8.2 mg/dL (8.4-10.2); Potassium 3.8 mmol/L (3.5-5.1); Total Bilirubin 0.3 mg/dL (0.2-1.3); Total Protein 5.2 g/dL (6.3-8.2)
[2018-12-03 09:20] LABS: HCT 31.5 % (34.0-46.0); HGB 10.2 gm/dL (11.4-16.0); MCH 27.9 pg (25.0-35.0); MCHC 32.5 g/dL (31.0-37.0); Mean Platelet Volume 7.3; Platelet Count 273 k/uL (150-450); RBC 3.66 m/uL (3.80-5.40); RDW 15.9 % (11.5-15.5); WBC 9.6 k/uL (3.8-10.6)
--- NOTE | 2018-12-03 10:37 | P.GSCN ---
History of Present Illness Consult date: 12/03/18 Reason for Consult: Small bowel obstruction History of present illness: This a 53-year-old female who has complaints of abdominal pain nausea. Patient was seen in emergency. Her CAT scan was suggestive of a small bowel obstruction. She had a nasogastric tube placed emergency room and apparently 500 mL of feculent fluid was removed. Patient still has some feculent fluid in her NG tube aspirate today. She states her abdomen soft. She has no plans of pain. 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 History of Any Multi-Drug Resistant Organisms: MRSA Year Discovered:: 04/19/18 MDRO Source:: face Past Surgical History: Section, Uterine Ablation Additional Past Surgical History / Comment(s): C/S x 4, cyst removed from for ehead, EGD, left cataract with lens implant then retinal surgery d/t detachment, Lt cheek abscesses incision and drainages. Past Anesthesia/Blood Transfusion Reactions: Motion Sickness, Postoperative Nausea & Vomiting (PONV) Past Psychological History: Anxiety Additional Psychological History / Comment(s): Pt resides with her spouse and 3 out of their 4 children who are all adults. They do own a walker. She no longer drives d/t vision problems, her spouse or son drive her places. Smoking Status: Never smoker Past Alcohol Use History: None Reported Past Drug Use History: None Reported - Past Family History Father Family Medical History: Cancer Additional Family Medical History / Comment(s): cancerous polyp Mother Family Medical History: Hypertension Additional Family Medical History / Comment(s): Mother had irregular heartbeat and boarderline diabetes. Medications and Allergies Home Medications Medication Instructions Recorded Confirmed Type Albuterol Sulfate [Proair Hfa] 2 puff INHALATION RT-Q4H PRN 02/25/17 12/02/18 History Citalopram Hydrobromide [CeleXA] 40 mg PO DAILY 02/25/17 12/02/18 History Gabapentin 600 mg PO TID 02/25/17 12/02/18 History Fluticasone Nasal [place] [Flonase 1 - 2 spray EA NOSTRIL HS PRN 08/15/17 12/02/18 History Nasal [place]] Albuterol Nebulized [Ventolin 2.5 mg INHALATION RT-QID PRN 11/14/17 12/02/18 [place] Nebulized] Cetirizine HCl [Zyrtec] 10 mg PO DAILY 11/14/17 12/02/18 History Gemfibrozil [Lopid] 600 mg PO BID 11/14/17 12/02/18 History cloNIDine HCL [Catapres] 0.2 mg PO TID #90 tab 11/20/17 12/02/18 Rx ALPRAZolam [Xanax] 0.5 mg PO DAILY PRN 10/16/18 12/02/18 History Carvedilol [Coreg] 25 mg PO BID 10/16/18 12/02/18 History Furosemide [Lasix] 40 mg PO DAILY 10/16/18 12/02/18 History Pantoprazole Sodium [Protonix] 40 mg PO DAILY 10/16/18 12/02/18 History traZODone HCL [Desyrel] 100 mg PO HS 10/16/18 12/02/18 History Insuln Asp Prt/Insulin Aspart 20 unit SQ AC-BID #1 vial 10/20/18 12/02/18 Rx [NovoLOG MIX 70-30 VIAL] Insulin Glargine,Hum.rec.anlog 30 unit SQ DAILY 12/02/18 12/02/18 History [Lantus Solostar] Semaglutide [Ozempic] 0.25 mg SQ MO 12/02/18 12/02/18 History Allergies Allergy/AdvReac Type Severity Reaction Status Date / Time adhesive tape Allergy Itching/swe Verified 12/02/18 21:55 lling hydrocodone [From [place]] Allergy Hallucinati Verified 12/02/18 21:55 ons/vomitin g measles, mumps, and rubella Allergy Rash/Hives Verified 12/02/18 21:55 vaccine Penicillins Allergy Anaphylaxis Verified 12/02/18 21:55 shellfish derived [Shrimp] Allergy Rash/Hives Verified 12/02/18 21:55 Sulfa (Sulfonamide Allergy Anaphylaxis Verified 12/02/18 21:55 Antibiotics) Surgical - Exam Vital Signs Temp Pulse Resp BP Pulse Ox 98.6 F 100 18 125/72 97 12/02/18 21:34 12/02/18 21:34 12/02/18 21:34 12/02/18 21:34 12/02/18 21:34 - General well developed, well nourished, no distress - Eyes PERRL - ENT normal pinna - Neck no masses - Respiratory normal expansion - Cardiovascular Rhythm: regular - Abdomen Obese Abdomen: soft, non tender Results - Labs 12/03/18 07:45 12/03/18 07:45 Abnormal Lab Results - Last 24 Hours (Table) 12/02/18 12/02/18 12/02/18 Range/Units 22:30 22:30 22:30 RBC (3.80-5.40) m/uL Hgb (11.4-16.0) gm/dL Hct (34.0-46.0) % RDW 16.4 H (11.5-15.5) % Eosinophils # (Manual) 1.26 H (0-0.7) k/uL Myelocytes # (Manual) 0.39 H (0) k/uL Chloride 108 H (98-107) mmol/L Carbon Dioxide 20 L (22-30) mmol/L BUN 53 H (7-17) mg/dL Creatinine 3.83 H (0.52-1.04) mg/dL Glucose 180 H (74-99) mg/dL POC Glucose (mg/dL) (75-99) mg/dL Calcium (8.4-10.2) mg/dL AST 8 L (14-36) U/L Total Protein (6.3-8.2) g/dL Albumin (3.5-5.0) g/dL Urine Appearance Cloudy H (Clear) Urine Protein 2+ H (Negative) Urine Bilirubin 1+ H (Negative) Ur Leukocyte Esterase Large H (Negative) Urine RBC 13 H (0-5) /hpf Urine WBC 27 H (0-5) /hpf Ur Squamous Epith Cells 9 H (0-4) /hpf Hyaline Casts 3 H (0-2) /lpf 12/03/18 12/03/18 12/03/18 Range/Units 07:31 07:45 07:45 RBC 3.66 L (3.80-5.40) m/uL Hgb 10.2 L (11.4-16.0) gm/dL Hct 31.5 L (34.0-46.0) % RDW 15.9 H (11.5-15.5) % Eosinophils # (Manual) (0-0.7) k/uL Myelocytes # (Manual) (0) k/uL Chloride 113 H (98-107) mmol/L Carbon Dioxide 21 L (22-30) mmol/L BUN 55 H (7-17) mg/dL Creatinine 3.73 H (0.52-1.04) mg/dL Glucose (74-99) mg/dL POC Glucose (mg/dL) 102 H (75-99) mg/dL Calcium 8.2 L (8.4-10.2) mg/dL AST 8 L (14-36) U/L Total Protein 5.2 L (6.3-8.2) g/dL Albumin 2.7 L (3.5-5.0) g/dL Urine Appearance (Clear) Urine Protein (Negative) Urine Bilirubin (Negative) Ur Leukocyte Esterase (Negative) Urine RBC (0-5) /hpf Urine WBC (0-5) /hpf Ur Squamous Epith Cells (0-4) /hpf Hyaline Casts (0-2) /lpf Diabetes panel 12/02/18 12/03/18 Range/Units 22:30 07:45 Sodium 140 143 (137-145) mmol/L Potassium 3.8 3.8 (3.5-5.1) mmol/L Chloride 108 H 113 H (98-107) mmol/L Carbon Dioxide 20 L 21 L (22-30) mmol/L BUN 53 H 55 H (7-17) mg/dL Creatinine 3.83 H 3.73 H (0.52-1.04) mg/dL Glucose 180 H 91 (74-99) mg/dL Calcium 9.8 8.2 L (8.4-10.2) mg/dL AST 8 L 8 L (14-36) U/L ALT 10 15 (9-52) U/L Alkaline Phosphatase 80 57 (38-126) U/L Total Protein 6.7 5.2 L (6.3-8.2) g/dL Albumin 3.6 2.7 L (3.5-5.0) g/dL Calcium panel 12/02/18 12/03/18 Range/Units 22:30 07:45 Calcium 9.8 8.2 L (8.4-10.2) mg/dL Albumin 3.6 2.7 L (3.5-5.0) g/dL Pituitary panel 12/02/18 12/03/18 Range/Units 22:30 07:45 Sodium 140 143 (137-145) mmol/L Potassium 3.8 3.8 (3.5-5.1) mmol/L Chloride 108 H 113 H (98-107) mmol/L Carbon Dioxide 20 L 21 L (22-30) mmol/L BUN 53 H 55 H (7-17) mg/dL Creatinine 3.83 H 3.73 H (0.52-1.04) mg/dL Glucose 180 H 91 (74-99) mg/dL Calcium 9.8 8.2 L (8.4-10.2) mg/dL Adrenal panel 12/02/18 12/03/18 Range/Units 22:30 07:45 Sodium 140 143 (137-145) mmol/L Potassium 3.8 3.8 (3.5-5.1) mmol/L Chloride 108 H 113 H (98-107) mmol/L Carbon Dioxide 20 L 21 L (22-30) mmol/L BUN 53 H 55 H (7-17) mg/dL Creatinine 3.83 H 3.73 H (0.52-1.04) mg/dL Glucose 180 H 91 (74-99) mg/dL Calcium 9.8 8.2 L (8.4-10.2) mg/dL Total Bilirubin 0.4 0.3 (0.2-1.3) mg/dL AST 8 L 8 L (14-36) U/L ALT 10 15 (9-52) U/L Alkaline Phosphatase 80 57 (38-126) U/L Total Protein 6.7 5.2 L (6.3-8.2) g/dL Albumin 3.6 2.7 L (3.5-5.0) g/dL Assessment and Plan Assessment: Possible ileus versus partial small bowel structure. Patient remained with NG tube today. When she has definitive bowel function we will remove NG tube.
[2018-12-03 11:24] LABS: Band Neutrophils % 14 %; Lymphocytes # (M) 1.25 k/uL (1.0-4.8); Metamyelocytes % 1 %; Monocytes # (M) 0.96 k/uL (0-1.0); Myelocytes % 1 %; Neutrophils % (M) 38 %; Nucleated Red Blood Cells 0 /100 WBC (0-0); Total Cells Counted 200
[2018-12-03 11:42] LABS: Glucose,Whole Blood 92 mg/dL (75-99)
--- NOTE | 2018-12-03 13:02 | P.HPIM ---
History of Present Illness Chief Complaint: Nausea vomiting diarrhea This very pleasant 53-year-old female comes into the ER with above-mentioned complaint. The patient says that she was in [place] since last week where she went [place] the ocean. Apparently the we have had her and she had injury to her left knee and right ankle. She went in to one of the hospitals in [place] where she had x-ray done and apparently she was told that there was no broken bones but she was put on Tylenol 3 and sent home. She said that she took Tylenol 3 started throwing up. They drove back to [place] and on her way she started having diarrhea which is been going on since 3 days[address] sideway from [place] to the ER over here for further evaluation and management. Patient says that she was given left knee immobilizer and right walking boot. She said that she was not trying to push too much to eat or drink as it was causing her to throw up. Patient otherwise does not complain of any fever or chills, no chest pain racing heart, no cough no shortness of breath, no tingling numbness on his extremities other than her digits in her lower extremities, no itch no rash. ER course-temperature 98.5 pulse 94 rest patient 20 blood pressure 102/66 satting 92% on room air. Labwork was done which showed WBC 9.7 hemoglobin 12.2 platelets 373 sodium 140 potassium 3.8 bun 53 creatinine 3.83. UA which showed which shows large leukocyte esterase 27 WBCs 9 squamous cells and 3 Hylan casts. X-ray KUB showed possible small bowel obstruction. X-ray of the right ankle was done which showed nonacute appearing nondisplaced fracture of the distal fibula. Patient was given 2 L of IV fluids, was put on morphine and Zofran when necessary and admitted to the hospitalist service a further admission and management with surgery on consult. 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 History of Any Multi-Drug Resistant Organisms: MRSA Date of last positivie culture/infection: 04/19/18 MDRO Source:: face Past Surgical History: Section, Uterine Ablation Additional Past Surgical History / Comment(s): C/S x 4, cyst removed from forehead, EGD, left cataract with lens implant then retinal surgery d/t detachment, Lt cheek abscesses incision and drainages. Past Anesthesia/Blood Transfusion Reactions: Motion Sickness, Postoperative Nausea & Vomiting (PONV) Past Psychological History: Anxiety Additional Psychological History / Comment(s): Pt resides with her spouse and 3 out of their 4 children who are all adults. They do own a walker. She no longer drives d/t vision problems, her spouse or son drive her places. Smoking Status: Never smoker Past Alcohol Use History: None Reported Past Drug Use History: None Reported - Past Family History Father Family Medical History: Cancer Additional Family Medical History / Comment(s): cancerous polyp Mother Family Medical History: Hypertension Additional Family Medical History / Comment(s): Mother had irregular heartbeat and boarderline diabetes. Medications and Allergies Home Medications Medication Instructions Recorded Confirmed Type Albuterol Sulfate [Proair Hfa] 2 puff INHALATION RT-Q4H PRN 02/25/17 12/02/18 History Citalopram Hydrobromide [CeleXA] 40 mg PO DAILY 02/25/17 12/02/18 History Gabapentin 600 mg PO TID 02/25/17 12/02/18 History Fluticasone Nasal [place] [Flonase 1 - 2 spray EA NOSTRIL HS PRN 08/15/17 12/02/18 History Nasal [place]] Albuterol Nebulized [Ventolin 2.5 mg INHALATION RT-QID PRN 11/14/17 12/02/18 History Nebulized] Cetirizine HCl [Zyrtec] 10 mg PO DAILY 11/14/17 12/02/18 History Gemfibrozil [Lopid] 600 mg PO BID 11/14/17 12/02/18 History cloNIDine HCL [Catapres] 0.2 mg PO TID #90 tab 11/20/17 12/02/18 Rx ALPRAZolam [Xanax] 0.5 mg PO DAILY PRN 10/16/18 12/02/18 History Carvedilol [Coreg] 25 mg PO BID 10/16/18 12/02/18 History Furosemide [Lasix] 40 mg PO DAILY 10/16/18 12/02/18 History Pantoprazole Sodium [Protonix] 40 mg PO DAILY 10/16/18 12/02/18 History traZODone HCL [Desyrel] 100 mg PO HS 10/16/18 12/02/18 History Insuln Asp Prt/Insulin Aspart 20 unit SQ AC-BID #1 vial 10/20/18 12/02/18 Rx [NovoLOG MIX 70-30 VIAL] Insulin Glargine,Hum.rec.anlog 30 unit SQ DAILY 12/02/18 12/02/18 History [Lantus Solostar] Semaglutide [Ozempic] 0.25 mg SQ MO 12/02/18 12/02/18 History Allergies Allergy/AdvReac Type Severity Reaction Status Date / Time adhesive tape Allergy Itching/swe Verified 12/02/18 21:55 lling hydrocodone [From [place]] Allergy Hallucinati Verified 12/02/18 21:55 ons/vomitin g measles, mumps, and rubella Allergy Rash/Hives Verified 12/02/18 21:55 vaccine Penicillins Allergy Anaphylaxis Verified 12/02/18 21:55 shellfish derived [Shrimp] Allergy Rash/Hives Verified 12/02/18 21:55 Sulfa (Sulfonamide Allergy Anaphylaxis Verified 12/02/18 21:55 Antibiotics) Physical Exam Vitals: Vital Signs Temp Pulse Pulse Resp BP BP Pulse Ox 12/03/18 05:00 98.5 F 94 20 102/66 92 L 12/03/18 02:42 98 F 80 20 129/76 95 12/03/18 01:08 99.2 F 92 20 133/72 95 12/02/18 21:34 98.6 F 100 18 125/72 97 Intake and Output 12/02/18 12/03/18 12/03/18 22:59 06:59 14:59 Intake Total 0 Balance 0 Intake: Oral 0 Other: Voiding Method Bedpan Bedpan # Voids 0 Weight 113.398 kg On exam, alert and oriented x3. HEENT: Conjunctivae normal. eyes normal. NECK: No JVD. No thyroid enlargement. No LNs CARDIOVASCULAR: S1, S2 muffled. No murmur RESPIRATION: Breath sounds diminished in the bases. No rhonchi or crackles. No bronchial breathing. ABDOMEN: Soft, nontender . No guarding. no masses palpable. No ascites, No hepatosplenomegaly.Bowel sounds heard. Patient has an NG tube placed LEGS: Patient has swelling in the left knee. She has bruise on the lateral part of the right ankle. And pain with medial rotation of the right ankle NERVOUS SYSTEM: Cranial N 2-12 grossly normal. Moves all 4 limbs. No focal deficits. No sensory deficit. No signs of cerebellar dysfucntion. Skin: no ulcer no rash Results CBC & Chem 7: 12/03/18 07:45 12/03/18 07:45 Labs: Abnormal Lab Results - Last 24 Hours (Table) 12/02/18 12/02/18 12/02/18 Range/Units 22:30 22:30 22:30 RBC (3.80-5.40) m/uL Hgb (11.4-16.0) gm/dL Hct (34.0-46.0) % RDW 16.4 H (11.5-15.5) % Eosinophils # (Manual) 1.26 H (0-0.7) k/uL Metamyelocytes # (Man) (0) k/uL Myelocytes # (Manual) 0.39 H (0) k/uL Chloride 108 H (98-107) mmol/L Carbon Dioxide 20 L (22-30) mmol/L BUN 53 H (7-17) mg/dL Creatinine 3.83 H (0.52-1.04) mg/dL Glucose 180 H (74-99) mg/dL POC Glucose (mg/dL) (75-99) mg/dL Calcium (8.4-10.2) mg/dL AST 8 L (14-36) U/L Total Protein (6.3-8.2) g/dL Albumin (3.5-5.0) g/dL Urine Appearance Cloudy H (Clear) Urine Protein 2+ H (Negative) Urine Bilirubin 1+ H (Negative) Ur Leukocyte Esterase Large H (Negative) Urine RBC 13 H (0-5) /hpf Urine WBC 27 H (0-5) /hpf Ur Squamous Epith Cells 9 H (0-4) /hpf Hyaline Casts 3 H (0-2) /lpf 12/03/18 12/03/18 12/03/18 Range/Units 07:31 07:45 07:45 RBC 3.66 L (3.80-5.40) m/uL Hgb 10.2 L (11.4-16.0) gm/dL Hct 31.5 L (34.0-46.0) % RDW 15.9 H (11.5-15.5) % Eosinophils # (Manual) 2.30 H (0-0.7) k/uL Metamyelocytes # (Man) 0.10 H (0) k/uL Myelocytes # (Manual) 0.10 H (0) k/uL Chloride 113 H (98-107) mmol/L Carbon Dioxide 21 L (22-30) mmol/L BUN 55 H (7-17) mg/dL Creatinine 3.73 H (0.52-1.04) mg/dL Glucose (74-99) mg/dL POC Glucose (mg/dL) 102 H (75-99) mg/dL Calcium 8.2 L (8.4-10.2) mg/dL AST 8 L (14-36) U/L Total Protein 5.2 L (6.3-8.2) g/dL Albumin 2.7 L (3.5-5.0) g/dL Urine Appearance (Clear) Urine Protein (Negative) Urine Bilirubin (Negative) Ur Leukocyte Esterase (Negative) Urine RBC (0-5) /hpf Urine WBC (0-5) /hpf Ur Squamous Epith Cells (0-4) /hpf Hyaline Casts (0-2) /lpf Thrombosis Risk Factor Assmnt - Choose All That Apply Any of the Below Risk Factors Present?: Yes Each Factor Represents 1 point: Age 41-60 years, Obesity (BMI >25) Other Risk Factors: No Thrombosis Risk Factor Assessment Total Risk Factor Score: 2 Thrombosis Risk Factor Assessment Level: Low Risk Assessment and Plan Assessment: - Small bowel obstruction - Nonacute appearing nondisclosed fractured right ankle - History of asthma stable at this time - History of diabetes mellitus - History of hypertension - History of hyperlipidemia - History of C KD stage III - History of bilateral feet neuropathy - History of pneumonia - History of MRSA infection - History of right ankle fracture in the past Plan - We'll admit the patient [facility] with telemetry - Patient has an NG tube placed and hooked to intermittent suction - General surgery consulted. Appreciate the recommendations - We'll continue pain control and nausea control - Continue gentle fluid hydration - Nothing by mouth for now - X-ray showed nondisplaced nonacute appearing right ankle fracture. Patient was prescribed right ankle boot. - DVT and GI prophylaxis - We'll order for lab work in the morning - Expected length of stay is more than 2 midnights - Patient is full code Time with Patient: Greater than 30
[2018-12-03 17:16] LABS: Glucose,Whole Blood 81 mg/dL (75-99)
[2018-12-03 20:15] LABS: Glucose,Whole Blood 76 mg/dL (75-99)
[2018-12-04 03:09] LABS: Glucose,Whole Blood 81 mg/dL (75-99)
[2018-12-04] MEDS: SODIUM CHLORIDE 0.9% 1,000 ML IV SCH ×3 (03:25→15:11)
[2018-12-04 07:12] LABS: Glucose,Whole Blood 73 mg/dL (75-99)
[2018-12-04] MEDS: PANTOPRAZOLE 40 MG/10 ML VIAL IV SCH (07:44)
[2018-12-04 09:40] LABS: Anisocytosis Slight; HCT 31.2 % (34.0-46.0); HGB 10.2 gm/dL (11.4-16.0); Hypochromasia Slight; MCHC 32.7 g/dL (31.0-37.0); MCV 85.5 fL (80.0-100.0); Platelet Count 271 k/uL (150-450); RBC 3.64 m/uL (3.80-5.40); RDW 16.1 % (11.5-15.5); WBC 14.3 k/uL (3.8-10.6)
[2018-12-04 10:13] LABS: Calcium 8.3 mg/dL (8.4-10.2); Potassium 3.7 mmol/L (3.5-5.1)
[2018-12-04 12:37] LABS: Glucose,Whole Blood 76 mg/dL (75-99)
--- NOTE | 2018-12-04 13:24 | P.PN ---
Subjective Progress Note Date: 12/04/18 CHIEF COMPLAINT: SBO HISTORY OF PRESENT ILLNESS: Patient examined at the bedside. She denies abdominal pain. NG to LIS. Reports bowel movement this morning. PHYSICAL EXAM: VITAL SIGNS: Reviewed. GENERAL: Well-developed in no acute distress. HEENT: NG to LIS. No sclera icterus. Extraocular movements grossly intact. Moist buccal mucosa. Head is atraumatic, normocephalic. ABDOMEN: Soft. Nondistended. Nontender. NEUROLOGIC: Alert and oriented. Cranial nerves II through XII grossly intact. ASSESSMENT: 1. Small bowel obstruction PLAN: 1. Discontinue NG tube 2. Begin clear liquid diet Nurse practitioner note has been reviewed by physician. Signing provider agrees with the documented findings, assessment, and plan of care. Objective - Vital Signs Vital signs: Vital Signs Temp 98 F 12/04/18 05:00 Pulse 103 H 12/04/18 05:00 Resp 20 12/04/18 05:00 BP 163/90 12/04/18 05:00 Pulse Ox 94 L 12/04/18 05:00 Intake & Output 12/03/18 12/04/18 12/04/18 18:59 06:59 18:59 Intake Total 540 0 Output Total 500 Balance 40 0 Intake: Oral 540 0 Output: Drainage 500 Right 500 Other: Voiding Method Bedpan # Voids 2 3 1 # Bowel Movements 1 - Labs CBC & Chem 7: 12/04/18 08:49 12/04/18 08:49 Labs: Abnormal Lab Results - Last 24 Hours (Table) 12/04/18 12/04/18 12/04/18 Range/Units 07:04 08:49 08:49 WBC 14.3 H (3.8-10.6) k/uL RBC 3.64 L (3.80-5.40) m/uL Hgb 10.2 L (11.4-16.0) gm/dL Hct 31.2 L (34.0-46.0) % RDW 16.1 H (11.5-15.5) % Chloride 118 H (98-107) mmol/L Carbon Dioxide 16 L (22-30) mmol/L BUN 46 H (7-17) mg/dL Creatinine 2.86 H (0.52-1.04) mg/dL Glucose 73 L (74-99) mg/dL POC Glucose (mg/dL) 73 L (75-99) mg/dL Calcium 8.3 L (8.4-10.2) mg/dL
--- NOTE | 2018-12-04 13:30 | P.NPCON ---
History of Present Illness - Reason for Consult acute renal failure, chronic renal failure - History of Present Illness Reason for consultation: Acute kidney injury on chronic kidney disease History of present illness: Patient is a 53-year-old female seen in renal consultation for acute kidney injury on chronic kidney disease. Patient has chronic kidney disease stage IV with creatinine in the range of 2.1-2.4. Etiology is diabetic kidney disease. Patient states about 3 days ago she developed diarrhea. She was having 8-10 episodes of diarrhea on a daily basis. Patient states she tried taking Pepto- Bismol as well as Imodium with no improvement in her symptoms. Patient's creatinine on admission was 3.83 and is down to 2.86 today. There is concern for small bowel obstruction and she had an NG tube placed. The NG tube was removed this morning. She is currently on a clear liquid diet and has been tolerating it well. No further diarrhea. No vomiting. She does admit to taking Aleve once daily. Good urine output. No hematuria or dysuria. Currently maintained on normal saline at 1 50 mL an hour. She does have long- standing history of diabetes mellitus. Denies family history of renal disease. Vital signs are stable. General: The patient appeared well nourished and normally developed. HEENT: Head exam is unremarkable. Neck is without jugular venous distension. LUNGS: Lungs are clear to auscultation and percussion. Breath sounds decreased. HEART: Rate and Rhythm are regular. First and second heart sounds normal. No murmurs, rubs or gallops. ABDOMEN: Abdominal exam reveals normal bowel sounds. Non-tender and non- distended. No evidence of peritonitis. EXTREMITITES: No clubbing, cyanosis, or edema. 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 History of Any Multi-Drug Resistant Organisms: MRSA Date of last positivie culture/infection: 04/19/18 MDRO Source:: face Past Surgical History: Section, Uterine Ablation Additional Past Surgical History / Comment(s): C/S x 4, cyst removed from forehead, EGD, left cataract with lens implant then retinal surgery d/t de tachment, Lt cheek abscesses incision and drainages. Past Anesthesia/Blood Transfusion Reactions: Motion Sickness, Postoperative Nausea & Vomiting (PONV) Past Psychological History: Anxiety Additional Psychological History / Comment(s): Pt resides with her spouse and 3 out of their 4 children who are all adults. They do own a walker. She no longer drives d/t vision problems, her spouse or son drive her places. Smoking Status: Never smoker Past Alcohol Use History: None Reported Past Drug Use History: None Reported - Past Family History Father Family Medical History: Cancer Additional Family Medical History / Comment(s): cancerous polyp Mother Family Medical History: Hypertension Additional Family Medical History / Comment(s): Mother had irregular heartbeat and boarderline diabetes. Medications and Allergies Home Medications Medication Instructions Recorded Confirmed Type Albuterol Sulfate [Proair Hfa] 2 puff INHALATION RT-Q4H PRN 02/25/17 12/02/18 History Citalopram Hydrobromide [CeleXA] 40 mg PO DAILY 02/25/17 12/02/18 History Gabapentin 600 mg PO TID 02/25/17 12/02/18 History Fluticasone Nasal [place] [Flonase 1 - 2 spray EA NOSTRIL HS PRN 08/15/17 12/02/18 History Nasal [place]] Albuterol Nebulized [Ventolin 2.5 mg INHALATION RT-QID PRN 11/14/17 12/02/18 History Nebulized] Cetirizine HCl [Zyrtec] 10 mg PO DAILY 11/14/17 12/02/18 History Gemfibrozil [Lopid] 600 mg PO BID 11/14/17 12/02/18 History cloNIDine HCL [Catapres] 0.2 mg PO TID #90 tab 11/20/17 12/02/18 Rx ALPRAZolam [Xanax] 0.5 mg PO DAILY PRN 10/16/18 12/02/18 History Carvedilol [Coreg] 25 mg PO BID 10/16/18 12/02/18 History Furosemide [Lasix] 40 mg PO DAILY 10/16/18 12/02/18 History Pantoprazole Sodium [Protonix] 40 mg PO DAILY 10/16/18 12/02/18 History traZODone HCL [Desyrel] 100 mg PO HS 10/16/18 12/02/18 History Insuln Asp Prt/Insulin Aspart 20 unit SQ AC-BID #1 vial 10/20/18 12/02/18 Rx [NovoLOG MIX 70-30 VIAL] Insulin Glargine,Hum.rec.anlog 30 unit SQ DAILY 12/02/18 12/02/18 History [Lantus Solostar] Semaglutide [Ozempic] 0.25 mg SQ MO 12/02/18 12/02/18 History Allergies Allergy/AdvReac Type Severity Reaction Status Date / Time adhesive tape Allergy Itching/swe Verified 12/02/18 21:55 lling hydrocodone [From [place]] Allergy Hallucinati Verified 12/02/18 21:55 ons/vomitin g measles, mumps, and rubella Allergy Rash/Hives Verified 12/02/18 21:55 vaccine Penicillins Allergy Anaphylaxis Verified 12/02/18 21:55 shellfish derived [Shrimp] Allergy Rash/Hives Verified 12/02/18 21:55 Sulfa (Sulfonamide Allergy Anaphylaxis Verified 12/02/18 21:55 Antibiotics) Physical Exam Vitals: Vital Signs Temp Pulse Resp BP Pulse Ox 12/04/18 05:00 98 F 103 H 20 163/90 94 L 12/03/18 22:00 98.2 F 92 20 172/73 93 L Intake and Output 12/03/18 12/04/18 12/04/18 22:59 06:59 14:59 Intake Total 0 0 Output Total 500 Balance -500 0 Intake: Oral 0 0 Output: Drainage 500 Right 500 Other: Voiding Method Bedpan # Voids 1 3 1 # Bowel Movements 1 Results - Lab Results Most recent lab results Calcium 8.3 mg/dL (8.4-10.2) L 12/04/18 08:49 12/04/18 08:49 12/04/18 08:49 Assessment and Plan Plan: Assessment: 1. Acute kidney injury mostly prerenal secondary to intravascular volume depletion from diarrhea and use of nonsteroidals. Creatinine was 3.83 at admission and is down to 2.86 today. 2. Chronic kidney disease stage IV secondary to diabetic kidney disease with baseline creatinine in the range of 2.1-2.4. 3. Metabolic acidosis secondary to acute kidney injury and diarrhea. 4. Diarrhea. Improved. Also concern for ileus versus partial small bowel obstruction. NG tube was removed this morning. Surgery is following. 5. Insulin-dependent diabetes mellitus. 6. Hypertension with chronic kidney disease. Blood pressure on the higher side. Plan: I will decrease the rate of normal saline to 80 mL an hour. Resume clonidine 0.2 mg 3 times daily - to be held if systolic blood pressure less than 120. Diet to be advanced per surgical recommendations. Add oral sodium bicarbonate. Avoid nephrotoxins. Repeat electrolytes in the morning. Thank you for the consultation. I will continue to follow the patient with you during her hospital stay.
[2018-12-04] MEDS: SODIUM BICARBONATE TAB 650 MG TAB PO SCH ×2 (13:43→21:22)
[2018-12-04] MEDS: cloNIDine HCL 0.2 MG TAB PO SCH ×2 (15:10→21:22)
[2018-12-04] MEDS: MORPHINE SULFATE 4 MG/ML SYRINGE IV PRN (15:13)
[2018-12-04] MEDS ORDERED: ALPRAZolam 0.5 MG TAB PO PRN (15:35)
[2018-12-04] MEDS: ALBUTEROL NEBULIZED 2.5 MG/3 ML INHALATION PRN (16:08)
[2018-12-04] MEDS: CITALOPRAM HYDROBROMIDE 20 MG TAB PO SCH (16:25)
[2018-12-04] MEDS: CARVEDILOL 12.5 MG TAB PO SCH (16:25)
[2018-12-04] MEDS: GABAPENTIN 300 MG CAP PO SCH ×2 (16:25→21:22)
[2018-12-04 17:01] LABS: Glucose,Whole Blood 101 mg/dL (75-99)
[2018-12-04] MEDS: INSULIN ASPART (NovoLOG) 100 UNIT/ML VIAL SQ SCH ×2 (17:16→21:18)
--- NOTE | 2018-12-04 17:18 | PN ---
PROGRESS NOTE CHIEF COMPLAINT: Possible bowel obstruction. HISTORY OF PRESENT ILLNESS: This morning this lady started to pass a large amount of stool, and distention and pain largely disappeared. She has also been passing gas. She is still complaining of a lot of discomfort in the right knee, which she sprained, as well as the right ankle. She apparently was told x-rays are normal, but report indicates that she has a distal right fibular fracture. PHYSICAL EXAMINATION: Chest is clear. Cardiac exam is normal. The abdomen is protuberant, soft and bowel sounds seem to be normal. There are no definite masses. IMPRESSION: 1. Small-bowel obstruction - resolved? 2. Constipation? 3. Left knee sprain. 4. Right lateral malleolar fracture. 5. Constipation. 6. Obesity. PLAN: Gradually increase activity and diet. MMODL / IJN: [id number] /
[2018-12-04 20:54] LABS: Glucose,Whole Blood 128 mg/dL (75-99)
[2018-12-04] MEDS ORDERED: FLUTICASONE 50MCG/SPRAY NASAL 16GM EA NOSTRIL PRN (21:00)
[2018-12-04] MEDS: traZODone HCL 100 MG TAB PO SCH (21:22)
[2018-12-05] MEDS: MORPHINE SULFATE 4 MG/ML SYRINGE IV PRN ×2 (06:27→20:44)
[2018-12-05] MEDS: SODIUM CHLORIDE 0.9% 1,000 ML IV SCH ×2 (06:29→17:25)
[2018-12-05] MEDS: ALBUTEROL NEBULIZED 2.5 MG/3 ML INHALATION PRN ×4 (07:10→21:03)
[2018-12-05 07:18] LABS: Glucose,Whole Blood 97 mg/dL (75-99)
[2018-12-05] MEDS: CARVEDILOL 12.5 MG TAB PO SCH ×2 (08:44→17:25)
[2018-12-05] MEDS: SODIUM BICARBONATE TAB 650 MG TAB PO SCH ×2 (08:44→20:42)
[2018-12-05] MEDS: CITALOPRAM HYDROBROMIDE 20 MG TAB PO SCH (08:44)
[2018-12-05] MEDS: GABAPENTIN 300 MG CAP PO SCH ×3 (08:44→20:42)
[2018-12-05] MEDS: cloNIDine HCL 0.2 MG TAB PO SCH ×3 (08:44→20:43)
[2018-12-05] MEDS: PANTOPRAZOLE 40 MG/10 ML VIAL IV SCH (08:44)
[2018-12-05] MEDS: INSULIN ASPART (NovoLOG) 100 UNIT/ML VIAL SQ SCH ×4 (09:55→21:31)
--- NOTE | 2018-12-05 10:19 | P.PN ---
Subjective Progress Note Date: 12/04/18 Principal diagnosis: Small bowel obstruction Acute on chronic kidney disease This very pleasant 53-year-old female comes into the ER with above-mentioned complaint. The patient says that she was in [place] since last week where she went [place] the ocean. Apparently the we have had her and she had injury to her left knee and right ankle. She went in to one of the hospitals in [place] where she had x-ray done and apparently she was told that there was no broken bones but she was put on Tylenol 3 and sent home. She said that she took Tylenol 3 started throwing up. They drove back to [place] and on her way she started having diarrhea which is been going on since 3 days[address] sideway from [place] to the ER over here for further evaluation and management. Patient says that she was given left knee immobilizer and right walking boot. She said that she was not trying to push too much to eat or drink as it was causing her to throw up. Patient otherwise does not complain of any fever or chills, no chest pain racing heart, no cough no shortness of breath, no tingling numbness on his extremities other than her digits in her lower extremities, no itch no rash. ER course-temperature 98.5 pulse 94 rest patient 20 blood pressure 102/66 satting 92% on room air. Labwork was done which showed WBC 9.7 hemoglobin 12.2 platelets 373 sodium 140 potassium 3.8 bun 53 creatinine 3.83. UA which showed which shows large leukocyte esterase 27 WBCs 9 squamous cells and 3 Hylan casts. X-ray KUB showed possible small bowel obstruction. X-ray of the right ankle was done which showed nonacute appearing nondisplaced fracture of the distal fibula. Patient was given 2 L of IV fluids, was put on morphine and Zofran when necessary and admitted to the hospitalist service a further admission and management with surgery on consult. 12/04/2018 Patient says that her abdominal pain is better today. NG tube was removed. Started on liquid diet. Renal function improved with creatinine level II.86 today. Nephrology is following. No complaints of chest pain or shortness of breath. No nausea vomiting. No diarrhea. WBC 14.3 All other review of systems negative except the above. No fever no chills. Current medications reviewed. Objective - Vital Signs Vital signs: Vital Signs Temp 97.8 F 12/04/18 12:54 Pulse 95 12/04/18 12:54 Resp 16 12/04/18 12:54 BP 167/83 12/04/18 12:54 Pulse Ox 95 12/04/18 12:54 Intake & Output 12/03/18 12/04/18 12/04/18 18:59 06:59 18:59 Intake Total 540 0 Output Total 500 500 Balance 40 0 -500 Intake: Oral 540 0 Output: Drainage 500 500 Right 500 500 Other: Voiding Method Bedpan # Voids 2 3 3 # Bowel Movements 1 - Exam On exam, alert and oriented x3. HEENT: Conjunctivae normal. eyes normal. NECK: No JVD. No thyroid enlargement. No LNs CARDIOVASCULAR: S1, S2 muffled. No murmur RESPIRATION: Breath sounds clear to auscultation. No rhonchi or crackles. No bronchial breathing. ABDOMEN: Soft, nontender . No guarding. no masses palpable. No ascites, No hepatosplenomegaly.Bowel sounds heard. LEGS: Patient has swelling in the left knee. She has bruise on the lateral part of the right ankle. And pain with medial rotation of the right ankle NERVOUS SYSTEM: Cranial N 2-12 grossly normal. Moves all 4 limbs. No focal deficits. No sensory deficit. No signs of cerebellar dysfucntion. Skin: no ulcer no rash - Labs CBC & Chem 7: 12/04/18 08:49 12/04/18 08:49 Labs: Abnormal Lab Results - Last 24 Hours (Table) 12/04/18 12/04/18 12/04/18 Range/Units 07:04 08:49 08:49 WBC 14.3 H (3.8-10.6) k/uL RBC 3.64 L (3.80-5.40) m/uL Hgb 10.2 L (11.4-16.0) gm/dL Hct 31.2 L (34.0-46.0) % RDW 16.1 H (11.5-15.5) % Chloride 118 H (98-107) mmol/L Carbon Dioxide 16 L (22-30) mmol/L BUN 46 H (7-17) mg/dL Creatinine 2.86 H (0.52-1.04) mg/dL Glucose 73 L (74-99) mg/dL POC Glucose (mg/dL) 73 L (75-99) mg/dL Calcium 8.3 L (8.4-10.2) mg/dL Assessment and Plan Assessment: - Acute Small bowel obstruction. Improved - Acute on chronic kidney disease stage III with baseline creatinine around 2.3- 2.4 - Nonacute appearing nondisclosed fractured right ankle - History of asthma stable at this time - History of diabetes mellitus2 - History of hypertension - History of hyperlipidemia - History of C KD stage III - History of bilateral feet neuropathy - History of pneumonia - History of MRSA infection - History of right ankle fracture in the past Plan Bowel obstruction has improved currently. Patient was started on clear liquid diet. NG tube has been removed. General surgery and nephrology is following. Continue gentle hydration. - X-ray showed nondisplaced nonacute appearing right ankle fracture. Patient was prescribed right ankle boot. - DVT and GI prophylaxis - Will order for lab work in the morning - Patient is full code Time with Patient: Greater than 30
--- NOTE | 2018-12-05 10:59 | P.PN ---
Subjective Patient is seen in follow-up for acute kidney injury on chronic kidney disease. Patient has chronic kidney disease stage IV with baseline creatinine in the range of 2.1-2.4 secondary to diabetic kidney disease. Patient presented to the hospital with diarrhea. She is tolerating clear liquid diet. Creatinine peaked at 3.83 this admission and was down to 2.86 as of yesterday. No vomiting or diarrhea. Vital signs are stable. General: The patient appeared well nourished and normally developed. HEENT: Head exam is unremarkable. Neck is without jugular venous distension. LUNGS: Lungs are clear to auscultation and percussion. Breath sounds decreased. HEART: Rate and Rhythm are regular. First and second heart sounds normal. No murmurs, rubs or gallops. ABDOMEN: Abdominal exam reveals normal bowel sounds. Non-tender and non- distended. No evidence of peritonitis. EXTREMITITES: No clubbing, cyanosis, or edema. Objective - Vital Signs Vital signs: Vital Signs Temp 98.4 F 12/05/18 05:37 Pulse 88 12/05/18 07:23 Resp 18 12/05/18 05:37 BP 149/74 12/05/18 05:37 Pulse Ox 93 L 12/05/18 05:37 Intake & Output 12/04/18 12/05/18 12/05/18 18:59 06:59 18:59 Intake Total 580 Output Total 500 Balance -500 580 Intake: Oral 580 Output: Drainage 500 Right 500 Other: Voiding Method Bedpan # Voids 2 4 1 # Bowel Movements 2 4 - Labs CBC & Chem 7: 12/04/18 08:49 12/04/18 08:49 Labs: Abnormal Lab Results - Last 24 Hours (Table) 12/04/18 12/04/18 Range/Units 16:48 20:53 POC Glucose (mg/dL) 101 H 128 H (75-99) mg/dL Microbiology - Last 24 Hours (Table) 12/04/18 20:23 Stool Culture - Preliminary Stool Assessment and Plan Plan: Assessment: 1. Acute kidney injury mostly prerenal secondary to intravascular volume depletion from diarrhea and use of nonsteroidals. Creatinine was 3.83 at admission and was down to 2.86 as of yesterday. 2. Chronic kidney disease stage IV secondary to diabetic kidney disease with baseline creatinine in the range of 2.1-2.4. 3. Metabolic acidosis secondary to acute kidney injury and diarrhea. 4. Diarrhea. C. diff negative. Improved. Also concern for ileus versus partial small bowel obstruction. NG tube removed. Surgery is following. 5. Insulin-dependent diabetes mellitus. 6. Hypertension with chronic kidney disease. Better. Plan: Maintain normal saline at 80 mL an hour. Diet to be advanced per surgical recommendations. Maintain oral sodium bicarbonate. Avoid nephrotoxins. Repeat electrolytes in the morning. Follow-up morning labs.
--- NOTE | 2018-12-05 11:10 | P.PN ---
Subjective Progress Note Date: 12/05/18 CHIEF COMPLAINT: SBO HISTORY OF PRESENT ILLNESS: Patient examined at the bedside. She denies abdominal pain. Denies nausea or vomiting. Tolerating clear liquid diet. Reports BM around 0400 this morning. PHYSICAL EXAM: VITAL SIGNS: Reviewed. GENERAL: Well-developed in no acute distress. HEENT: NG to LIS. No sclera icterus. Extraocular movements grossly intact. Moist buccal mucosa. Head is atraumatic, normocephalic. ABDOMEN: Soft. Nondistended. Nontender. NEUROLOGIC: Alert and oriented. Cranial nerves II through XII grossly intact. ASSESSMENT: 1. Small bowel obstruction versus ileus, resolved PLAN: 1. Full liquid diet. Advance as tolerated 2. No surgical intervention recommended. Stable from surgical perspective. Nurse practitioner note has been reviewed by physician. Signing provider agrees with the documented findings, assessment, and plan of care. Objective - Vital Signs Vital signs: Vital Signs Temp 98.4 F 12/05/18 05:37 Pulse 88 12/05/18 07:23 Resp 18 12/05/18 05:37 BP 149/74 12/05/18 05:37 Pulse Ox 93 L 12/05/18 05:37 Intake & Output 12/04/18 12/05/18 12/05/18 18:59 06:59 18:59 Intake Total 580 Output Total 500 Balance -500 580 Intake: Oral 580 Output: Drainage 500 Right 500 Other: Voiding Method Bedpan # Voids 2 4 1 # Bowel Movements 2 4 - Labs CBC & Chem 7: 12/04/18 08:49 12/04/18 08:49 Labs: Abnormal Lab Results - Last 24 Hours (Table) 12/04/18 12/04/18 Range/Units 16:48 20:53 POC Glucose (mg/dL) 101 H 128 H (75-99) mg/dL Microbiology - Last 24 Hours (Table) 12/04/18 20:23 Stool Culture - Preliminary Stool
[2018-12-05 11:38] LABS: HCT 27.9 % (34.0-46.0); MCH 27.3 pg (25.0-35.0); MCHC 32.1 g/dL (31.0-37.0); MCV 85.2 fL (80.0-100.0); Mean Platelet Volume 7.1; Platelet Count 222 k/uL (150-450); RBC 3.28 m/uL (3.80-5.40); WBC 13.7 k/uL (3.8-10.6)
[2018-12-05 11:55] LABS: Calcium 8.6 mg/dL (8.4-10.2); Magnesium 1.7 mg/dL (1.6-2.3)
[2018-12-05 12:09] LABS: Glucose,Whole Blood 179 mg/dL (75-99)
[2018-12-05 12:12] LABS: Band Neutrophils % 1 %; Eosinophils # (M) 3.29 k/uL (0-0.7); Lymphocytes # (M) 1.92 k/uL (1.0-4.8); Monocytes # (M) 0.96 k/uL (0-1.0); Neutrophils % (M) 54 %; Nucleated Red Blood Cells 0 /100 WBC (0-0); Total Cells Counted 100
[2018-12-05 12:13] LABS: Poikilocytosis (M) Present
[2018-12-05 12:33] LABS: Potassium 3.7 mmol/L (3.5-5.1)
[2018-12-05 13:30] LABS: Reticulocyte % 3.6 % (0.5-2.0)
[2018-12-05 17:09] LABS: Glucose,Whole Blood 147 mg/dL (75-99)
[2018-12-05 18:39] LABS: Iron Saturation 17.6 (12.00-45.00)
--- NOTE | 2018-12-05 18:41 | PN ---
PROGRESS NOTE CHIEF COMPLAINT: Ileus or constipation. HISTORY OF PRESENT ILLNESS: This lady has now developed chronic and profuse diarrhea. It [place]. She does not believe that she got into any water that might be suspect. She denies a lot of cramps, fever, chills, etc. PHYSICAL EXAMINATION: Chest is clear. The cardiac exam is normal. The abdomen is protuberant and soft and nontender. Bowel sounds are somewhat hyperactive. IMPRESSION: 1. Constipation. 2. Diarrhea. PLAN: 1. Stool studies: All negative. 2. Advance diet. 3. If she remains fairly stable and the diarrhea recedes, she could probably go home tomorrow. MMODL / IJN: [id number] /
[2018-12-05] MEDS: traZODone HCL 100 MG TAB PO SCH (20:42)
[2018-12-05 21:14] LABS: Glucose,Whole Blood 144 mg/dL (75-99)
[2018-12-06] MEDS: SODIUM CHLORIDE 0.9% 1,000 ML IV SCH (04:59)
[2018-12-06 07:02] LABS: Glucose,Whole Blood 152 mg/dL (75-99)
[2018-12-06] MEDS: ALBUTEROL NEBULIZED 2.5 MG/3 ML INHALATION PRN (07:54)
[2018-12-06] MEDS: PANTOPRAZOLE 40 MG/10 ML VIAL IV SCH (08:27)
[2018-12-06] MEDS: GABAPENTIN 300 MG CAP PO SCH (08:27)
[2018-12-06] MEDS: CITALOPRAM HYDROBROMIDE 20 MG TAB PO SCH (08:28)
[2018-12-06] MEDS: INSULIN ASPART (NovoLOG) 100 UNIT/ML VIAL SQ SCH ×2 (08:28→12:58)
[2018-12-06] MEDS: SODIUM BICARBONATE TAB 650 MG TAB PO SCH (08:28)
[2018-12-06] MEDS: CARVEDILOL 12.5 MG TAB PO SCH (08:28)
[2018-12-06] MEDS: cloNIDine HCL 0.2 MG TAB PO SCH (08:28)
[2018-12-06 08:54] LABS: Appearance,Urine Clear (Clear); Bacteria,Urine Occasional /hpf; Bilirubin,Urine Negative (Negative); Blood,Urine Negative (Negative); Color,Urine Light Yellow; Glucose,Urine (UA) Negative (Negative); Ketones,Urine Negative (Negative); Leukocyte Esterase,Urine Moderate (Negative); Mucus,Urine Rare /hpf; Nitrite,Urine Negative (Negative); PH, Urine 5.5 (5.0-8.0); Protein,Urine 1+ (Negative); RBC,Urine 3 /hpf (0-5); Specific Gravity,Urine 1.015 (1.001-1.035); Squamous Epithelial Cell,Urine 3 /hpf (0-4); Urobilinogen,Urine <2.0 mg/dL (<2.0); WBC,Urine 14 /hpf (0-5)
--- NOTE | 2018-12-06 09:33 | P.PN ---
Subjective Patient is seen in follow-up for acute kidney injury on chronic kidney disease. Patient has chronic kidney disease stage IV with baseline creatinine in the range of 2.1-2.4 secondary to diabetic kidney disease. Patient presented to the hospital with diarrhea. She is tolerating regular diet. Creatinine peaked at 3.83 this admission and was down to 2.08 as of yesterday. No vomiting. Had one episode of diarrhea yesterday. Vital signs are stable. General: The patient appeared well nourished and normally developed. HEENT: Head exam is unremarkable. Neck is without jugular venous distension. LUNGS: Lungs are clear to auscultation and percussion. Breath sounds decreased. HEART: Rate and Rhythm are regular. First and second heart sounds normal. No murmurs, rubs or gallops. ABDOMEN: Abdominal exam reveals normal bowel sounds. Non-tender and non- distended. No evidence of peritonitis. EXTREMITITES: No clubbing, cyanosis, or edema. Objective - Vital Signs Vital signs: Vital Signs Temp 98.0 F 12/06/18 05:30 Pulse 80 12/06/18 08:10 Resp 20 12/06/18 05:30 BP 161/80 12/06/18 05:30 Pulse Ox 94 L 12/06/18 05:30 Intake & Output 12/05/18 12/06/18 12/06/18 18:59 06:59 18:59 Intake Total 580 Balance 580 Intake: Oral 580 Other: # Voids 2 1 # Bowel Movements 1 1 - Labs CBC & Chem 7: 12/05/18 11:16 12/05/18 11:16 Labs: Abnormal Lab Results - Last 24 Hours (Table) 12/05/18 12/05/18 12/05/18 Range/Units 11:16 11:16 11:16 WBC 13.7 H (3.8-10.6) k/uL RBC 3.28 L (3.80-5.40) m/uL Hgb 9.0 L (11.4-16.0) gm/dL Hct 27.9 L (34.0-46.0) % RDW 16.0 H (11.5-15.5) % Eosinophils # (Manual) 3.29 H (0-0.7) k/uL Retic Count (0.5-2.0) % Chloride 114 H (98-107) mmol/L Carbon Dioxide 21 L (22-30) mmol/L BUN 33 H (7-17) mg/dL Creatinine 2.08 H (0.52-1.04) mg/dL Glucose 169 H (74-99) mg/dL POC Glucose (mg/dL) (75-99) mg/dL Iron 41 L (50-170) ug/dL Urine Protein (Negative) Ur Leukocyte Esterase (Negative) Urine WBC (0-5) /hpf Urine Bacteria (None) /hpf Urine Mucus (None) /hpf 12/05/18 12/05/18 12/05/18 Range/Units 11:16 11:51 16:45 WBC (3.8-10.6) k/uL RBC (3.80-5.40) m/uL Hgb (11.4-16.0) gm/dL Hct (34.0-46.0) % RDW (11.5-15.5) % Eosinophils # (Manual) (0-0.7) k/uL Retic Count 3.6 H (0.5-2.0) % Chloride (98-107) mmol/L Carbon Dioxide (22-30) mmol/L BUN (7-17) mg/dL Creatinine (0.52-1.04) mg/dL Glucose (74-99) mg/dL POC Glucose (mg/dL) 179 H 147 H (75-99) mg/dL Iron (50-170) ug/dL Urine Protein (Negative) Ur Leukocyte Esterase (Negative) Urine WBC (0-5) /hpf Urine Bacteria (None) /hpf Urine Mucus (None) /hpf 12/05/18 12/06/18 12/06/18 Range/Units 20:55 07:00 08:30 WBC (3.8-10.6) k/uL RBC (3.80-5.40) m/uL Hgb (11.4-16.0) gm/dL Hct (34.0-46.0) % RDW (11.5-15.5) % Eosinophils # (Manual) (0-0.7) k/uL Retic Count (0.5-2.0) % Chloride (98-107) mmol/L Carbon Dioxide (22-30) mmol/L BUN (7-17) mg/dL Creatinine (0.52-1.04) mg/dL Glucose (74-99) mg/dL POC Glucose (mg/dL) 144 H 152 H (75-99) mg/dL Iron (50-170) ug/dL Urine Protein 1+ H (Negative) Ur Leukocyte Esterase Moderate H (Negative) Urine WBC 14 H (0-5) /hpf Urine Bacteria Occasional H (None) /hpf Urine Mucus Rare H (None) /hpf Assessment and Plan Plan: Assessment: 1. Acute kidney injury mostly prerenal secondary to intravascular volume depletion from diarrhea and use of nonsteroidals. Creatinine was 3.83 at admission and was down to 2.08 as of yesterday. 2. Chronic kidney disease stage IV secondary to diabetic kidney disease with baseline creatinine in the range of 2.1-2.4. 3. Metabolic acidosis secondary to acute kidney injury and diarrhea. Improved. 4. Diarrhea. C. diff negative. Improved. Also concern for ileus versus partial small bowel obstruction. NG tube removed. Surgery is following. 5. Insulin-dependent diabetes mellitus. 6. Hypertension with chronic kidney disease. Stable. Plan: Decrease rate of normal saline to 50 mL an hour. Maintain oral sodium bicarbonate. Avoid nephrotoxins. Repeat electrolytes in the morning. Follow-up morning labs.
[2018-12-06] MEDS ORDERED: LOPERAMIDE 2 MG CAP PO PRN (10:26)
--- NOTE | 2018-12-06 11:17 | P.PN ---
Subjective Progress Note Date: 12/06/18 CHIEF COMPLAINT: SBO HISTORY OF PRESENT ILLNESS: Patient examined at the bedside. She denies abdominal pain. Denies nausea or vomiting. Tolerating Regular diet. Reports loose stools but states they are improving. PHYSICAL EXAM: VITAL SIGNS: Reviewed. GENERAL: Well-developed in no acute distress. HEENT: NG to LIS. No sclera icterus. Extraocular movements grossly intact. Moist buccal mucosa. Head is atraumatic, normocephalic. ABDOMEN: Soft. Nondistended. Nontender. NEUROLOGIC: Alert and oriented. Cranial nerves II through XII grossly intact. ASSESSMENT: 1. Small bowel obstruction versus ileus, resolved PLAN: 1. Continue current diet 2. No surgical intervention recommended. Stable from surgical perspective. We will sign off. Please reconsult if needed Nurse practitioner note has been reviewed by physician. Signing provider agrees with the documented findings, assessment, and plan of care. Objective - Vital Signs Vital signs: Vital Signs Temp 98.0 F 12/06/18 05:30 Pulse 80 12/06/18 08:10 Resp 20 12/06/18 05:30 BP 161/80 12/06/18 05:30 Pulse Ox 94 L 12/06/18 05:30 Intake & Output 12/05/18 12/06/18 12/06/18 18:59 06:59 18:59 Intake Total 580 Balance 580 Intake: Oral 580 Other: # Voids 2 1 # Bowel Movements 1 1 - Labs CBC & Chem 7: 12/05/18 11:16 12/05/18 11:16 Labs: Abnormal Lab Results - Last 24 Hours (Table) 12/05/18 12/05/18 12/05/18 Range/Units 11:16 11:16 11:16 WBC 13.7 H (3.8-10.6) k/uL RBC 3.28 L (3.80-5.40) m/uL Hgb 9.0 L (11.4-16.0) gm/dL Hct 27.9 L (34.0-46.0) % RDW 16.0 H (11.5-15.5) % Eosinophils # (Manual) 3.29 H (0-0.7) k/uL Retic Count (0.5-2.0) % Chloride 114 H (98-107) mmol/L Carbon Dioxide 21 L (22-30) mmol/L BUN 33 H (7-17) mg/dL Creatinine 2.08 H (0.52-1.04) mg/dL Glucose 169 H (74-99) mg/dL POC Glucose (mg/dL) (75-99) mg/dL Iron 41 L (50-170) ug/dL Urine Protein (Negative) Ur Leukocyte Esterase (Negative) Urine WBC (0-5) /hpf Urine Bacteria (None) /hpf Urine Mucus (None) /hpf 12/05/18 12/05/18 12/05/18 Range/Units 11:16 11:51 16:45 WBC (3.8-10.6) k/uL RBC (3.80-5.40) m/uL Hgb (11.4-16.0) gm/dL Hct (34.0-46.0) % RDW (11.5-15.5) % Eosinophils # (Manual) (0-0.7) k/uL Retic Count 3.6 H (0.5-2.0) % Chloride (98-107) mmol/L Carbon Dioxide (22-30) mmol/L BUN (7-17) mg/dL Creatinine (0.52-1.04) mg/dL Glucose (74-99) mg/dL POC Glucose (mg/dL) 179 H 147 H (75-99) mg/dL Iron (50-170) ug/dL Urine Protein (Negative) Ur Leukocyte Esterase (Negative) Urine WBC (0-5) /hpf Urine Bacteria (None) /hpf Urine Mucus (None) /hpf 12/05/18 12/06/18 12/06/18 Range/Units 20:55 07:00 08:30 WBC (3.8-10.6) k/uL RBC (3.80-5.40) m/uL Hgb (11.4-16.0) gm/dL Hct (34.0-46.0) % RDW (11.5-15.5) % Eosinophils # (Manual) (0-0.7) k/uL Retic Count (0.5-2.0) % Chloride (98-107) mmol/L Carbon Dioxide (22-30) mmol/L BUN (7-17) mg/dL Creatinine (0.52-1.04) mg/dL Glucose (74-99) mg/dL POC Glucose (mg/dL) 144 H 152 H (75-99) mg/dL Iron (50-170) ug/dL Urine Protein 1+ H (Negative) Ur Leukocyte Esterase Moderate H (Negative) Urine WBC 14 H (0-5) /hpf Urine Bacteria Occasional H (None) /hpf Urine Mucus Rare H (None) /hpf
[2018-12-06 11:37] LABS: Calcium 8.8 mg/dL (8.4-10.2); Magnesium 1.6 mg/dL (1.6-2.3); Potassium 3.9 mmol/L (3.5-5.1)
[2018-12-06 12:23] LABS: Glucose,Whole Blood 165 mg/dL (75-99)
[2018-12-06 14:13] VITALS: BP 177/82; PULSE 81; RESP 18; TEMP 98.4
--- NOTE | 2018-12-06 21:11 | DS ---
DISCHARGE SUMMARY CHIEF COMPLAINT: Abdominal pain and distention and possible bowel obstruction. HISTORY OF PRESENT ILLNESS AND PHYSICAL EXAM: Details of this lady's history and physical can be found in the initial workup. LABORATORY STUDIES: While she was in the hospital, she had laboratory studies, details of which can be found in the laboratory section of her chart. COURSE IN HOSPITAL: After admission, she was placed on bedrest, started on fluids and was seen and followed by Surgery. She started to pass stool and gas indicating that she did not have a bowel obstruction and this may have been only related to constipation. This was followed with diarrhea, but stool studies were negative. She was doing well enough it was felt that she could go home on the and she will go home on usual diet, activity, medication and she will follow up in the office in a day or 2. FINAL DIAGNOSES: 1. Abdominal pain. 2. Constipation. 3. Possible small-bowel obstruction. 4. Possible ileus. 5. Diabetes mellitus. OPERATIONS: None. CONSULTATIONS: General surgery. She is improved. MMODL / ILDAN: [id number] /
== END 2018-12-06 15:42 | disposition home or self-care (01) | DRG 389 ==
LOC: EC 21:18 → 4MS4W 23:51
PROVIDERS: ADMIT Family Medicine; ATTEND Family Medicine
PROC: 0D9670Z Drainage of Stomach with Drainage Device, Via Natural or Artificial Opening (ICD-10-PCS; principal; 2018-12-02)
DX: K56.609 Unspecified intestinal obstruction, unspecified as to partial versus complete obstruction (principal); Z68.42 Body mass index [BMI] 45.0-49.9, adult; N17.9 Acute kidney failure, unspecified; E87.2 Acidosis; K59.00 Constipation, unspecified; K56.7 Ileus, unspecified; E66.9 Obesity, unspecified; E11.22 Type 2 diabetes mellitus with diabetic chronic kidney disease; E11.40 Type 2 diabetes mellitus with diabetic neuropathy, unspecified; N18.3 Chronic kidney disease, stage 3 (moderate); D64.9 Anemia, unspecified; S83.92XA Sprain of unspecified site of left knee, initial encounter; E86.0 Dehydration; J45.909 Unspecified asthma, uncomplicated; K44.9 Diaphragmatic hernia without obstruction or gangrene; E78.5 Hyperlipidemia, unspecified; I12.9 Hypertensive chronic kidney disease with stage 1 through stage 4 chronic kidney disease, or unspecified chronic kidney disease; S82.831D Other fracture of upper and lower end of right fibula, subsequent encounter for closed fracture with routine healing; F41.9 Anxiety disorder, unspecified; K21.9 Gastro-esophageal reflux disease without esophagitis; G43.909 Migraine, unspecified, not intractable, without status migrainosus; E55.9 Vitamin D deficiency, unspecified; H54.7 Unspecified visual loss; Z79.4 Long term (current) use of insulin; Z79.899 Other long term (current) drug therapy; Z88.5 Allergy status to narcotic agent; Z87.19 Personal history of other diseases of the digestive system; Z86.14 Personal history of Methicillin resistant Staphylococcus aureus infection; Z98.891 History of uterine scar from previous surgery; Z87.01 Personal history of pneumonia (recurrent); Z87.11 Personal history of peptic ulcer disease; Z98.42 Cataract extraction status, left eye; Z96.1 Presence of intraocular lens; Z88.0 Allergy status to penicillin; Z91.013 Allergy to seafood; Z88.2 Allergy status to sulfonamides; Z88.7 Allergy status to serum and vaccine; Z91.048 Other nonmedicinal substance allergy status; Z80.0 Family history of malignant neoplasm of digestive organs; Z82.49 Family history of ischemic heart disease and other diseases of the circulatory system; Z83.3 Family history of diabetes mellitus; W01.0XXA Fall on same level from slipping, tripping and stumbling without subsequent striking against object, initial encounter
CPT/HCPCS: 36415; 74018; 80048; 80053; 81001; 82728; 83540; 83550; 83690; 83735; 85025; 85027; 85045; 87045; 87046; 87086; 87324; 87328; 87329; 94640; 96361; 96374; 96375; 99285

== ENCOUNTER 2018-12-15 09:47 | Inpatient (IN) | payer BC, MEDICARE ==
--- NOTE | 2018-12-15 10:41 | ED ---
General Adult HPI - General Chief complaint: Shortness of Breath Stated complaint: ASIA, Diarrhea Time Seen by Provider: 12/15/18 09:50 Source: patient, RN notes reviewed Mode of arrival: wheelchair Limitations: no limitations - History of Present Illness Initial comments: This is a 53-year-old female who has a past medical history of asthma and anemia. Patient states she comes in today because she's had 18 days of diarrhea and has had difficulty breathing which is getting progressively worse per patient also has had an increasing cough as of late. Patient states she's had some increased edema to her feet but not much worse than normal. Patient denies any chest pain or palpitations. Patient denies any black or bloody stools. Patient denies headache patient denies numbness weakness. Patient denies lightheadedness dizziness or near-syncopal episode. - Related Data Home Medications Medication Instructions Recorded Confirmed Albuterol Sulfate [Proair Hfa] 2 puff INHALATION RT-Q4H PRN 02/25/17 12/15/18 Citalopram Hydrobromide [CeleXA] 40 mg PO DAILY 02/25/17 12/15/18 Gabapentin 600 mg PO TID 02/25/17 12/15/18 Fluticasone Nasal [place] [Flonase 1 - 2 spray EA NOSTRIL HS PRN 08/15/17 12/15/18 Nasal [place]] Albuterol Nebulized [Ventolin 2.5 mg INHALATION RT-QID PRN 11/14/17 12/15/18 Nebulized] Cetirizine HCl [Zyrtec] 10 mg PO DAILY 11/14/17 12/15/18 Gemfibrozil [Lopid] 600 mg PO BID 11/14/17 12/15/18 ALPRAZolam [Xanax] 0.5 mg PO DAILY PRN 10/16/18 12/15/18 Carvedilol [Coreg] 25 mg PO BID 10/16/18 12/15/18 Furosemide [Lasix] 40 mg PO DAILY 10/16/18 12/15/18 Pantoprazole Sodium [Protonix] 40 mg PO DAILY 10/16/18 12/15/18 traZODone HCL [Desyrel] 100 mg PO HS 10/16/18 12/15/18 Insulin Glargine,Hum.rec.anlog 30 unit SQ DAILY 12/02/18 12/15/18 [Lantus Solostar] Previous Rx's Medication Instructions Recorded cloNIDine HCL [Catapres] 0.2 mg PO TID #90 tab 11/20/17 Insuln Asp Prt/Insulin Aspart 20 unit SQ AC-BID #1 vial 10/20/18 [NovoLOG MIX 70-30 VIAL] Loperamide [Imodium] 2 mg PO QID PRN #30 cap 12/06/18 Allergies Allergy/AdvReac Type Severity Reaction Status Date / Time adhesive tape Allergy Itching/swe Verified 12/15/18 10:11 lling hydrocodone [From [place]] Allergy Hallucinati Verified 12/15/18 10:11 ons/vomitin g measles, mumps, and rubella Allergy Rash/Hives Verified 12/15/18 10:11 vaccine Penicillins Allergy Anaphylaxis Verified 12/15/18 10:11 shellfish derived [Shrimp] Allergy Rash/Hives Verified 12/15/18 10:11 Sulfa (Sulfonamide Allergy Anaphylaxis Verified 12/15/18 10:11 Antibiotics) Review of Systems ROS Statement: Those systems with pertinent positive or pertinent negative responses have been documented in the HPI. ROS Other: All systems not noted in ROS Statement are negative. 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 History of Any Multi-Drug Resistant Organisms: MRSA Date of last positivie culture/infection: 04/19/18 MDRO Source:: face Past Surgical History: Section, Uterine Ablation Additional Past Surgical History / Comment(s): C/S x 4, cyst removed from forehead, EGD, left cataract with lens implant then retinal surgery d/t detachment, Lt cheek abscesses incision and drainages. Past Anesthesia/Blood Transfusion Reactions: Motion Sickness, Postoperative Nausea & Vomiting (PONV) Past Psychological History: Anxiety Smoking Status: Never smoker Past Alcohol Use History: None Reported Past Drug Use History: None Reported - Past Family History Father Family Medical History: Cancer Additional Family Medical History / Comment(s): cancerous polyp Mother Family Medical History: Hypertension Additional Family Medical History / Comment(s): Mother had irregular heartbeat and boarderline diabetes. General Exam - General Exam Comments Initial Comments: GENERAL: Patient is well-developed and well-nourished. Patient is nontoxic and well- hydrated and is in mild distress. ENT: Neck is soft and supple. No significant lymphadenopathy is noted. Oropharynx is clear. Moist mucous membranes. Neck has full range of motion without eliciting any pain. EYES: The sclera were anicteric and conjunctiva were pink and moist. Extraocular movements were intact and pupils were equal round and reactive to light. Eyelids were unremarkable. PULMONARY: Patient has crackles in the left lung CARDIOVASCULAR: There is a regular rate and rhythm without any murmurs gallops or rubs. ABDOMEN: Soft and nontender with normal bowel sounds. No palpable organomegaly was noted. There is no palpable pulsatile mass. SKIN: Pale NEUROLOGIC: Patient is alert and oriented x3. Cranial nerves II through XII are grossly intact. Motor and sensory are also intact. Normal speech, volume and content. Symmetrical smile. MUSCULOSKELETAL: Normal extremities with adequate strength and full range of motion. 1+ edema LYMPHATICS: No significant lymphadenopathy is noted PSYCHIATRIC: Normal psychiatric evaluation. Limitations: no limitations Course Vital Signs 12/15/18 12/15/18 12/15/18 09:50 10:00 10:03 Temperature 99.1 F Pulse Rate 86 86 Respiratory 22 21 30 H Rate Blood Pressure 125/65 O2 Sat by Pulse 92 L 95 Oximetry 12/15/18 12/15/18 12/15/18 10:30 11:00 11:30 Temperature Pulse Rate 85 85 Respiratory 25 H 27 H 35 H Rate Blood Pressure 140/85 140/85 140/85 O2 Sat by Pulse 94 L 94 L 92 L Oximetry 12/15/18 12/15/18 12/15/18 12:00 12:09 12:17 Temperature Pulse Rate 84 85 84 Respiratory 28 H Rate Blood Pressure 155/75 O2 Sat by Pulse 93 L Oximetry Medical Decision Making - Medical Decision Making EKG shows normal sinus rhythm at 86 bpm MD interval 294 QRS is 84 Q-T intervals 410 QTC is 490. Patient's EKG shows no acute. - Lab Data Result diagrams: 12/15/18 10:40 12/15/18 10:40 Lab Results 12/15/18 12/15/18 12/15/18 Range/Units 10:40 10:40 10:40 WBC 13.4 H (3.8-10.6) k/uL RBC 3.15 L (3.80-5.40) m/uL Hgb 8.8 L (11.4-16.0) gm/dL Hct 27.0 L (34.0-46.0) % MCV 85.5 (80.0-100.0) fL MCH 28.0 (25.0-35.0) pg MCHC 32.8 (31.0-37.0) g/dL RDW 16.2 H (11.5-15.5) % Plt Count 152 (150-450) k/uL Neutrophils % 60 % Lymphocytes % 7 % Monocytes % 3 % Eosinophils % 28 % Basophils % 1 % Neutrophils # 8.0 H (1.3-7.7) k/uL Lymphocytes # 1.0 (1.0-4.8) k/uL Monocytes # 0.4 (0-1.0) k/uL Eosinophils # 3.8 H (0-0.7) k/uL Basophils # 0.1 (0-0.2) k/uL Manual Slide Review Performed Anisocytosis Slight PT (9.0-12.0) sec INR (<1.2) APTT (22.0-30.0) sec Sodium 139 (137-145) mmol/L Potassium 4.5 (3.5-5.1) mmol/L Chloride 109 H (98-107) mmol/L Carbon Dioxide 21 L (22-30) mmol/L Anion Gap 9 mmol/L BUN 36 H (7-17) mg/dL Creatinine 2.17 H (0.52-1.04) mg/dL Est GFR (CKD-EPI)AfAm 29 (>60 ml/min/1.73 sqM) Est GFR (CKD-EPI)NonAf 25 (>60 ml/min/1.73 sqM) Glucose 402 H (74-99) mg/dL Plasma Lactic Acid [place] (0.7-2.0) mmol/L Calcium 8.4 (8.4-10.2) mg/dL Magnesium 1.8 (1.6-2.3) mg/dL Total Bilirubin 0.5 (0.2-1.3) mg/dL AST 13 L (14-36) U/L ALT 25 (9-52) U/L Alkaline Phosphatase 104 (38-126) U/L Troponin I (0.000-0.034) ng/mL NT-Pro-B Natriuret Pep pg/mL Total Protein 5.8 L (6.3-8.2) g/dL Albumin 2.8 L (3.5-5.0) g/dL Blood Type O Positive Blood Type Recheck No Antibody Screen NEGATIVE Spec Expiration Date 12/18/2018 - 233912/15/18 12/15/18 12/15/18 Range/Units 10:40 10:40 10:40 WBC (3.8-10.6) k/uL RBC (3.80-5.40) m/uL Hgb (11.4-16.0) gm/dL Hct (34.0-46.0) % MCV (80.0-100.0) fL MCH (25.0-35.0) pg MCHC (31.0-37.0) g/dL RDW (11.5-15.5) % Plt Count (150-450) k/uL Neutrophils % % Lymphocytes % % Monocytes % % Eosinophils % % Basophils % % Neutrophils # (1.3-7.7) k/uL Lymphocytes # (1.0-4.8) k/uL Monocytes # (0-1.0) k/uL Eosinophils # (0-0.7) k/uL Basophils # (0-0.2) k/uL Manual Slide Review Anisocytosis PT 10.1 (9.0-12.0) sec INR 0.9 (<1.2) APTT 19.3 L (22.0-30.0) sec Sodium (137-145) mmol/L Potassium (3.5-5.1) mmol/L Chloride (98-107) mmol/L Carbon Dioxide (22-30) mmol/L Anion Gap mmol/L BUN (7-17) mg/dL Creatinine (0.52-1.04) mg/dL Est GFR (CKD-EPI)AfAm (>60 ml/min/1.73 sqM) Est GFR (CKD-EPI)NonAf (>60 ml/min/1.73 sqM) Glucose (74-99) mg/dL Plasma Lactic Acid [place] (0.7-2.0) mmol/L Calcium (8.4-10.2) mg/dL Magnesium (1.6-2.3) mg/dL Total Bilirubin (0.2-1.3) mg/dL AST (14-36) U/L ALT (9-52) U/L Alkaline Phosphatase (38-126) U/L Troponin I 0.054 H* (0.000-0.034) ng/mL NT-Pro-B Natriuret Pep 82596 pg/mL Total Protein (6.3-8.2) g/dL Albumin (3.5-5.0) g/dL Blood Type Blood Type Recheck Antibody Screen Spec Expiration Date 12/15/18 Range/Units 10:40 WBC (3.8-10.6) k/uL RBC (3.80-5.40) m/uL Hgb (11.4-16.0) gm/dL Hct (34.0-46.0) % MCV (80.0-100.0) fL MCH (25.0-35.0) pg MCHC (31.0-37.0) g/dL RDW (11.5-15.5) % Plt Count (150-450) k/uL Neutrophils % % Lymphocytes % % Monocytes % % Eosinophils % % Basophils % % Neutrophils # (1.3-7.7) k/uL Lymphocytes # (1.0-4.8) k/uL Monocytes # (0-1.0) k/uL Eosinophils # (0-0.7) k/uL Basophils # (0-0.2) k/uL Manual Slide Review Anisocytosis PT (9.0-12.0) sec INR (<1.2) APTT (22.0-30.0) sec Sodium (137-145) mmol/L Potassium (3.5-5.1) mmol/L Chloride (98-107) mmol/L Carbon Dioxide (22-30) mmol/L Anion Gap mmol/L BUN (7-17) mg/dL Creatinine (0.52-1.04) mg/dL Est GFR (CKD-EPI)AfAm (>60 ml/min/1.73 sqM) Est GFR (CKD-EPI)NonAf (>60 ml/min/1.73 sqM) Glucose (74-99) mg/dL Plasma Lactic Acid [place] 0.9 (0.7-2.0) mmol/L Calcium (8.4-10.2) mg/dL Magnesium (1.6-2.3) mg/dL Total Bilirubin (0.2-1.3) mg/dL AST (14-36) U/L ALT (9-52) U/L Alkaline Phosphatase (38-126) U/L Troponin I (0.000-0.034) ng/mL NT-Pro-B Natriuret Pep pg/mL Total Protein (6.3-8.2) g/dL Albumin (3.5-5.0) g/dL Blood Type Blood Type Recheck Antibody Screen Spec Expiration Date Disposition Clinical Impression: Pneumonia, Pulmonary edema, Anemia, Hyperglycemia, Elevated troponin, Acute renal failure Disposition: ADMITTED IP TO THIS HOSP Referrals: Robbie Nieves MD [Primary Care Provider] - 1-2 days Time of Disposition: 12:37
[2018-12-15 10:57] LABS: Anisocytosis Slight; Basophils # (A) 0.1 k/uL (0-0.2); Basophils % (A) 1 %; Eosinophils # (A) 3.8 k/uL (0-0.7); Eosinophils % (A) 28 %; HGB 8.8 gm/dL (11.4-16.0); Lymphocytes % (A) 7 %; MCHC 32.8 g/dL (31.0-37.0); MCV 85.5 fL (80.0-100.0); Mean Platelet Volume 7.5; Monocytes # (A) 0.4 k/uL (0-1.0); Monocytes % (A) 3 %; Neutrophils % (A) 60 %; Platelet Count 152 k/uL (150-450); RBC 3.15 m/uL (3.80-5.40); RDW 16.2 % (11.5-15.5); WBC 13.4 k/uL (3.8-10.6)
[2018-12-15 11:06] LABS: Albumin 2.8 g/dL (3.5-5.0); Calcium 8.4 mg/dL (8.4-10.2); Magnesium 1.8 mg/dL (1.6-2.3); Potassium 4.5 mmol/L (3.5-5.1); Total Bilirubin 0.5 mg/dL (0.2-1.3); Total Protein 5.8 g/dL (6.3-8.2)
[2018-12-15 11:08] LABS: INR 0.9 (<1.2); Prothrombin Time 10.1 sec (9.0-12.0)
[2018-12-15 11:13] LABS: Partial Thromboplastin Time 19.3 sec (22.0-30.0)
--- NOTE | 2018-12-15 11:38 | XR ---
EXAMINATION TYPE: XR chest 2V DATE OF EXAM: 12/15/2018 HISTORY: difficulty breathing. REFERENCE: Previous study dated 10/18/2018. FINDINGS: Parts mildly enlarged. There is mild vascular congestion without wandy edema. Pleural space s are clear. IMPRESSION: CARDIOMEGALY AND VASCULAR CONGESTION WITHOUT WANDY EDEMA.
[2018-12-15] MEDS ORDERED: INSULIN ASPART (NovoLOG) 100 UNIT/ML VIAL SQ ONE (12:00)
[2018-12-15] MEDS ORDERED: IPRATROPIUM-ALBUTEROL 3 ML NEB INHALATION STA (12:00)
[2018-12-15] MEDS ORDERED: FUROSEMIDE 10 MG/ML 4 ML VIAL IV STA (12:00)
[2018-12-15] MEDS ORDERED: AZITHROMYCIN 500 MG in SODIUM CHLORIDE 0.9% 250 ML IVPB STA (12:38)
[2018-12-15] MEDS ORDERED: PNEUMONIA PROTOCOL UTILIZED 1 EACH MISC PO PRN (12:38)
[2018-12-15 12:47] LABS: Glucose,Whole Blood 463 mg/dL (75-99)
[2018-12-15 14:17] VITALS: BMI 45.7
[2018-12-15 14:28] LABS: Glucose,Whole Blood 409 mg/dL (75-99)
[2018-12-15] MEDS ORDERED: ALPRAZolam 0.5 MG TAB PO PRN (14:44)
--- NOTE | 2018-12-15 15:55 | HP ---
HISTORY AND PHYSICAL CHIEF COMPLAINT: Difficulty breathing. HISTORY OF PRESENT ILLNESS: This is another recent admission for this 53-year-old white female. She has poorly controlled insulin-dependent diabetes, congestive heart failure and obesity. She also has history of asthma. In addition to all that, she has had chronic diarrhea over the last month. She has had negative studies including C diff, stool for ova and parasites and stool culture. She has been on a Lomotil 2 q.i.d. with some control. There has been no blood. There has been no melena. She has never had any GI problems in the past. On the day of in the day for admission, she started to get progressively more short of breath and presented to the emergency room where it was felt that like it was likely more related to current congestive heart failure than anything else. There was apparently a faint infiltrates seen on the x-ray, but her BNP was extremely high at 13,300. She was admitted for management of her heart failure and control of her blood pressure. While she is in, she will be referred to GI to investigate the diarrhea. REVIEW OF SYSTEMS: She denies any focal neurologic problems, change in vision, hearing, hemoptysis, purulent sputum production, fever, chills, nausea, vomiting, dysuria, frequency, renal failure, joint pain, etc. Past medical history, family history personal and social history is essentially noncontributory or can be found in her recent admitting and discharge summaries. She does not smoke. LABORATORY STUDIES: In the emergency room, white count was 13,400 and hemoglobin is low at 8.8. Electrolytes are unremarkable. BUN is 36, creatinine 2.17 with a GFR of 25. Blood sugar was 463. Troponin was elevated slightly at 0.054. Medications at home include: 1. ProAir inhaler. 2. Celexa 40. 3. Gabapentin 600 mg t.i.d. 4. Fluticasone nasal spray. 5. Albuterol delivered by nebulizer. 6. Zyrtec. 7. Lopid. 8. Xanax. 9. Coreg 25 mg b.i.d. 10.Lasix 40 mg once a day. 11.Pantoprazole 40 mg once a day. 12.Trazodone 100 at bedtime. 13.Lantus 30 units once a day. ALLERGIC: To HYDROCODONE, PENICILLIN and SULFA. PHYSICAL EXAM: Temperature is 99.1. Pulse is 86, regular. Respirations were 32. Blood pressure is 125/65. GENERAL: She appeared to be short of breath and she had some circumoral cyanosis. She was slightly pale. Head, ears, eyes, nose, mouth, and throat were otherwise normal. Neck veins are not distended. Thyroid was not enlarged. Chest demonstrated scattered rales and rhonchi throughout with a prolonged expiratory phase and wheezing on inspiration and expiration. Cardiac exam demonstrated what sounded like sinus rhythm and no murmurs or extra sounds. The abdomen is protuberant. Abdomen is soft, nontender without any visceromegaly or masses. Bowel sounds present. Extremities are normal. There is no significant edema and calves are soft. She is admitted to the hospital with diagnoses: 1. Acute congestive heart failure. 2. Chronic congestive heart failure. 3. Uncontrolled diabetes. 4. Renal failure. 5. Obesity. 6. Chronic diarrhea. PLAN: 1. Bed rest. 2. IV fluids. 3. Diuresis. 4. Updrafts. 5. Inhaled steroids. 6. Consult with GI for diarrhea. 7. Consult with Pulmonology. 8. Consult with Cardiology for elevated troponin and CHF. MMODL / IJN: [id number] /
[2018-12-15] MEDS ORDERED: ALBUTEROL NEBULIZED 2.5 MG/3 ML INHALATION SCH (16:00)
[2018-12-15] MEDS: GABAPENTIN 300 MG CAP PO SCH ×2 (16:19→20:38)
[2018-12-15] MEDS: cloNIDine HCL 0.2 MG TAB PO SCH ×2 (16:19→20:38)
[2018-12-15] MEDS: CARVEDILOL 12.5 MG TAB PO SCH (16:19)
[2018-12-15] MEDS: IPRATROPIUM-ALBUTEROL 3 ML NEB INHALATION SCH ×2 (17:02→20:41)
[2018-12-15 17:11] LABS: Glucose,Whole Blood 343 mg/dL (75-99)
[2018-12-15] MEDS: INSULIN ASPART (NovoLOG) 100 UNIT/ML VIAL SQ SCH ×3 (17:46→20:52)
[2018-12-15 20:05] LABS: Glucose,Whole Blood 242 mg/dL (75-99)
[2018-12-15] MEDS: traZODone HCL 100 MG TAB PO SCH (20:34)
[2018-12-15] MEDS: FUROSEMIDE 10 MG/ML 10 ML VIAL IV SCH (20:37)
[2018-12-15] MEDS: BUDESONIDE 1 MG/2 ML NEBU INHALATION SCH (20:41)
[2018-12-15] MEDS: INSULIN DETEMIR (LEVEMIR) 100 UNIT/ML SYR SQ SCH (20:52)
[2018-12-15] MEDS ORDERED: FUROSEMIDE 10 MG/ML 2 ML VIAL IV SCH (21:00)
[2018-12-16 06:28] LABS: Glucose,Whole Blood 71 mg/dL (75-99)
[2018-12-16] MEDS: INSULIN ASPART (NovoLOG) 100 UNIT/ML VIAL SQ SCH ×7 (06:30→21:03)
[2018-12-16] MEDS: CARVEDILOL 12.5 MG TAB PO SCH ×2 (06:34→17:42)
[2018-12-16] MEDS: BUDESONIDE 1 MG/2 ML NEBU INHALATION SCH (07:06)
[2018-12-16] MEDS: IPRATROPIUM-ALBUTEROL 3 ML NEB INHALATION SCH ×4 (07:06→21:15)
--- NOTE | 2018-12-16 07:12 | XR ---
EXAMINATION TYPE: XR chest 2V DATE OF EXAM: 12/16/2018 HISTORY: pneumonia. REFERENCE: Previous study dated 12/15/2018. FINDINGS: Areas mildly enlarged. There is minimal vascular congestion without wandy edema. There is n o focal airspace disease. IMPRESSION: MILD VASCULAR CONGESTION WITHOUT WANDY EDEMA.
[2018-12-16] MEDS: GABAPENTIN 300 MG CAP PO SCH ×3 (08:50→21:00)
[2018-12-16] MEDS: CITALOPRAM HYDROBROMIDE 20 MG TAB PO SCH (08:50)
[2018-12-16] MEDS: LORATADINE 10 MG TAB PO SCH (08:50)
[2018-12-16] MEDS: cloNIDine HCL 0.2 MG TAB PO SCH ×3 (08:50→20:59)
[2018-12-16] MEDS: FUROSEMIDE 10 MG/ML 10 ML VIAL IV SCH ×2 (08:52→20:59)
[2018-12-16] MEDS ORDERED: AZITHROMYCIN 500 MG TAB PO SCH (09:00)
--- NOTE | 2018-12-16 10:02 | P.CRDCN ---
History of Present Illness Consult date: 12/16/18 Requesting physician: Robbie Nieves Reason for Consult (text): pulmonary edema, elevated troponin Chief complaint: Diarrhea and shortness of breath History of present illness: This pleasant 53-year-old female patient with history of hypertension, diabetes, chronic diarrhea, chronic renal failure, anemia and asthma. She apparently followed up with a physician from our office, likely Dr. Kenny after hospitalization in April at which time she had an echocardiogram that showed normal LV systolic function. She presented to the emergency department this admission with complaints of ongoing diarrhea as well as the development of significant shortness of breath, dyspnea on exertion, edema, weight gain and orthopnea. We were asked to see The patient in consultation for pulmonary edema and elevated troponin. Chest x-ray showed renomegaly and vascular congestion without wandy edema. Lab evaluation White blood cell count of 13,000, hemoglobin 8.8, BUN 36, creatinine 2.17 and NT proBNP of 13,300. Initial troponin was elevated at 0.054 with subsequent troponins of 0.029, 0.031 and 0.031. Upon examination, patient is resting comfortably in bed. She continues to complain of dyspnea on exertion, orthopnea and edema. She has been started on Rocephin and Zithromax. She has not had diarrhea today. 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 History of Any Multi-Drug Resistant Organisms: MRSA Date of last positivie culture/infection: 04/19/18 MDRO Source:: face Past Surgical History: Section, Uterine Ablation Additional Past Surgical History / Comment(s): C/S x 4, cyst removed from forehead, EGD, left cataract with lens implant then retinal surgery d/t detach ment, Lt cheek abscesses incision and drainages. Past Anesthesia/Blood Transfusion Reactions: Motion Sickness, Postoperative Nausea & Vomiting (PONV) Past Psychological History: Anxiety Additional Psychological History / Comment(s): Pt resides with her spouse and 3 out of their 4 children who are all adults. They do own a walker. She no longer drives d/t vision problems, her spouse or son drive her places. Smoking Status: Never smoker Past Alcohol Use History: None Reported Past Drug Use History: None Reported - Past Family History Father Family Medical History: Cancer Additional Family Medical History / Comment(s): cancerous polyp Mother Family Medical History: Hypertension Additional Family Medical History / Comment(s): Mother had irregular heartbeat and boarderline diabetes. Medications and Allergies Home Medications Medication Instructions Recorded Confirmed Type Albuterol Sulfate [Proair Hfa] 2 puff INHALATION RT-Q4H PRN 02/25/17 12/15/18 Hi story Citalopram Hydrobromide [CeleXA] 40 mg PO DAILY 02/25/17 12/15/18 History Gabapentin 600 mg PO TID 02/25/17 12/15/18 History Fluticasone Nasal [place] [Flonase 1 - 2 spray EA NOSTRIL HS PRN 08/15/17 12/15/18 History Nasal [place]] Albuterol Nebulized [Ventolin 2.5 mg INHALATION RT-QID PRN 11/14/17 12/15/18 History Nebulized] Cetirizine HCl [Zyrtec] 10 mg PO DAILY 11/14/17 12/15/18 History Gemfibrozil [Lopid] 600 mg PO BID 11/14/17 12/15/18 History cloNIDine HCL [Catapres] 0.2 mg PO TID #90 tab 11/20/17 12/15/18 Rx ALPRAZolam [Xanax] 0.5 mg PO DAILY PRN 10/16/18 12/15/18 History Carvedilol [Coreg] 25 mg PO BID 10/16/18 12/15/18 History Furosemide [Lasix] 40 mg PO DAILY 10/16/18 12/15/18 History Pantoprazole Sodium [Protonix] 40 mg PO DAILY 10/16/18 12/15/18 History traZODone HCL [Desyrel] 100 mg PO HS 10/16/18 12/15/18 History Insuln Asp Prt/Insulin Aspart 20 unit SQ AC-BID #1 vial 10/20/18 12/15/18 Rx [NovoLOG MIX 70-30 VIAL] Insulin Glargine,Hum.rec.anlog 30 unit SQ DAILY 12/02/18 12/15/18 History [Lantus Solostar] Loperamide [Imodium] 2 mg PO QID PRN #30 cap 12/06/18 12/15/18 Rx Allergies Allergy/AdvReac Type Severity Reaction Status Date / Time adhesive tape Allergy Itching/swe Verified 12/15/18 10:11 lling hydrocodone [From [place]] Allergy Hallucinati Verified 12/15/18 10:11 ons/vomitin g measles, mumps, and rubella Allergy Rash/Hives Verified 12/15/18 10:11 vaccine Penicillins Allergy Anaphylaxis Verified 12/15/18 10:11 shellfish derived [Shrimp] Allergy Rash/Hives Verified 12/15/18 10:11 Sulfa (Sulfonamide Allergy Anaphylaxis Verified 12/15/18 10:11 Antibiotics) Physical Exam Vitals: Vital Signs Temp Pulse Pulse Resp BP BP Pulse Ox 12/16/18 07:25 84 12/16/18 07:10 76 12/16/18 03:15 97.7 F 76 18 123/87 96 12/16/18 00:00 97.7 F 81 18 120/68 95 12/15/18 20:58 78 12/15/18 20:43 76 12/15/18 20:38 98.1 F 80 22 132/61 97 12/15/18 17:13 76 12/15/18 17:04 74 12/15/18 16:00 97.7 F 87 20 163/88 96 12/15/18 13:12 99.1 F 71 23 12/15/18 13:00 151/82 12/15/18 12:53 84 24 157/92 94 L 12/15/18 12:30 84 29 H 164/74 12/15/18 12:17 84 12/15/18 12:09 85 12/15/18 12:00 84 28 H 155/75 93 L 12/15/18 11:30 85 35 H 140/85 92 L 12/15/18 11:00 27 H 140/85 94 L 12/15/18 10:30 85 25 H 140/85 94 L 12/15/18 10:03 86 30 H 95 12/15/18 10:00 21 Intake and Output 12/15/18 12/16/18 12/16/18 22:59 06:59 14:59 Intake Total 120 100 480 Balance 120 100 480 Intake: Oral 120 100 480 Other: Weight 95.3 kg PHYSICAL EXAMINATION: HEENT: Head is atraumatic, normocephalic. Pupils equal, round. Neck is supple. There is no elevated jugular venous pressure. HEART EXAMINATION: Heart sounds regular, S1 and S2 normal. No murmur or gallop heard. CHEST EXAMINATION: Lungs reveal expiratory wheezing throughout and crackles bilateral bases. No chest wall tenderness is noted on palpation or with deep breathing. ABDOMEN: Soft, obese, nontender. Bowel sounds are heard. No organomegaly noted. EXTREMITIES: 2+ peripheral pulses with evidence of mild peripheral edema and no calf tenderness noted. NEUROLOGIC patient is awake, alert and oriented x3. . Results 12/15/18 10:40 12/15/18 10:40 Cardiac Enzymes 12/15/18 12/15/18 12/15/18 Range/Units 10:40 10:40 18:59 AST 13 L (14-36) U/L Troponin I 0.054 H* 0.029 (0.000-0.034) ng/mL 12/15/18 12/16/18 Range/Units 23:04 01:53 AST (14-36) U/L Troponin I 0.031 0.031 (0.000-0.034) ng/mL Coagulation 12/15/18 Range/Units 10:40 PT 10.1 (9.0-12.0) sec APTT 19.3 L (22.0-30.0) sec CBC 12/15/18 Range/Units 10:40 WBC 13.4 H (3.8-10.6) k/uL RBC 3.15 L (3.80-5.40) m/uL Hgb 8.8 L (11.4-16.0) gm/dL Hct 27.0 L (34.0-46.0) % Plt Count 152 (150-450) k/uL Comprehensive Metabolic Panel 12/15/18 Range/Units 10:40 Sodium 139 (137-145) mmol/L Potassium 4.5 (3.5-5.1) mmol/L Chloride 109 H (98-107) mmol/L Carbon Dioxide 21 L (22-30) mmol/L BUN 36 H (7-17) mg/dL Creatinine 2.17 H (0.52-1.04) mg/dL Glucose 402 H (74-99) mg/dL Calcium 8.4 (8.4-10.2) mg/dL AST 13 L (14-36) U/L ALT 25 (9-52) U/L Alkaline Phosphatase 104 (38-126) U/L Total Protein 5.8 L (6.3-8.2) g/dL Albumin 2.8 L (3.5-5.0) g/dL Current Medications Generic Name Dose Route Start Last Admin Trade Name Freq PRN Reason Stop Dose Admin Albuterol/Ipratropium 3 ml 12/15/18 16:00 12/16/18 07:06 Duoneb 0.5 Mg-3 Mg/3 Ml Soln INHALATION 3 ml RT-QID MARCO Administration Albuterol/Ipratropium 3 ml 12/15/18 14:49 Duoneb 0.5 Mg-3 Mg/3 Ml Soln INHALATION RT-Q2H PRN Shortness Of Breath Or Wheezing Alprazolam 0.5 mg 12/15/18 14:44 Xanax PO DAILY PRN Anxiety Azithromycin 500 mg 12/16/18 09:00 12/16/18 08:50 Zithromax PO 500 mg DAILY MARCO Administration Budesonide 1 mg 12/15/18 20:00 12/16/18 07:06 Pulmicort INHALATION 1 mg RT-BID MARCO Administration Carvedilol 25 mg 12/15/18 17:30 12/16/18 06:34 Coreg PO 25 mg BID-W/MEALS MARCO Administration Citalopram Hydrobromide 40 mg 12/16/18 09:00 12/16/18 08:50 Celexa PO 40 mg DAILY MARCO Administration Clonidine 0.2 mg 12/15/18 16:00 12/16/18 08:50 Catapres PO 0.2 mg TID MARCO Administration Furosemide 80 mg 12/15/18 21:00 12/16/18 08:52 Lasix IV 80 mg Q12HR MARCO Administration Gabapentin 600 mg 12/15/18 16:00 12/16/18 08:50 Neurontin PO 600 mg TID MARCO Administration Hydralazine HCl 25 mg 12/16/18 10:00 Apresoline PO BID MARCO Ceftriaxone Sodium 1 gm/ 50 mls @ 100 mls/hr 12/16/18 09:00 12/16/18 08:52 Sodium Chloride IVPB 12/19/18 09:01 100 mls/hr Q24HR MARCO Administration Insulin Aspart 0 unit 12/15/18 17:30 12/16/18 06:30 Novolog SQ Not Given ACHS MARCO Protocol Insulin Aspart 15 unit 12/15/18 17:30 12/16/18 06:30 Novolog SQ Not Given AC-TID MARCO Insulin Detemir 50 unit 12/15/18 21:00 12/15/18 20:52 Levemir SQ 50 unit HS MARCO Administration Isosorbide Mononitrate 15 mg 12/16/18 10:00 Imdur PO DAILY MARCO Loratadine 10 mg 12/16/18 09:00 12/16/18 08:50 Claritin PO 10 mg DAILY MARCO Administration Miscellaneous Information 1 each 12/15/18 12:38 Pneumonia Protocol Utilized PO ONCE PRN Per Protocol Trazodone HCl 100 mg 12/15/18 21:00 12/15/18 20:34 Desyrel PO Not Given HS MARCO Intake and Output 12/15/18 12/16/18 12/16/18 22:59 06:59 14:59 Intake Total 120 100 480 Balance 120 100 480 Intake: Oral 120 100 480 Other: Weight 95.3 kg 12/15/18 10:40 12/15/18 10:40 Assessment and Plan Assessment: #1 acute on chronic congestive heart failure, likely diastolic with most recent echocardiogram showing normal LV systolic function #2 chronic diarrhea #3 chronic renal failure #4 hypertension #5 diabetes Plan: From cardiology perspective, will continue current dose of Lasix. We will add hydralazine and Imdur. We will obtain a 2-D echo with Doppler to assess LV function. Continue to follow the patient 5 further recommendations accordingly. STOCK DIGGER note has been reviewed, I agree with a documented findings and plan of care. Patient was seen and examined.
--- NOTE | 2018-12-16 10:45 | PN ---
PROGRESS NOTE CHIEF COMPLAINT: Shortness of breath. HISTORY OF PRESENT ILLNESS: This lady is just about the same. She is still having difficulty breathing. She has been diuresing, but she is still dyspneic when she is up and about. She has had no fever, chills, chest pain, etc. PHYSICAL EXAM: Blood pressure 123/87, pulse of 76, respirations of 18 and she is afebrile. In general, she appeared to be in no acute distress. Skin was dry. Head, ears, eyes, nose, mouth, and throat were normal and chest demonstrated persistent scattered rales and rhonchi. Cardiac exam is normal and the abdomen is protuberant. Extremities are normal. IMPRESSION: 1. Acute respiratory failure. 2. Congestive heart failure. 3. Uncontrolled diabetes mellitus. 4. Renal failure. PLAN: Continue with diuresis and continue to follow blood sugars and other laboratory studies. MMODL / IJN: [id number] /
--- NOTE | 2018-12-16 11:12 | P.NPCON ---
History of Present Illness - Reason for Consult acute renal failure, chronic renal failure - History of Present Illness Reason for consultation: Acute kidney injury on chronic kidney disease History of present illness: Patient is a 53-year-old female seen in renal consultation for acute kidney injury on chronic kidney disease. Patient has chronic kidney disease stage IV secondary to diabetic kidney disease with baseline creatinine near 2. Creatinine on admission was 2.17. Patient presented to the hospital for diarrhea going on for the last few days. She also was dyspneic on admission. Patient states she was wheezing and didn't take her inhalers and nebulized treatments with no significant improvement. Patient states the diarrhea is now resolved. She admits to good urine output. No hematuria or dysuria. Patient has a history of diastolic CHF. She is currently maintained on 80 mg IV Lasix twice daily. Hemodynamically stable. Denies use of nonsteroidals. Chest x-ray this morning revealed mild vascular congestion. Denies fever or chills. No abdominal pain. Does admit to swelling in her feet. Vital signs are stable. General: The patient appeared well nourished and normally developed. HEENT: Head exam is unremarkable. Neck is without jugular venous distension. LUNGS: Lungs are clear to auscultation and percussion. Breath sounds decreased. HEART: Rate and Rhythm are regular. First and second heart sounds normal. No murmurs, rubs or gallops. ABDOMEN: Abdominal exam reveals normal bowel sounds. Non-tender and non- distended. No evidence of peritonitis. EXTREMITITES: 1+ edema. 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 History of Any Multi-Drug Resistant Organisms: MRSA Date of last positivie culture/infection: 04/19/18 MDRO Source:: face Past Surgical History: Section, Uterine Ablation Additional Past Surgical History / Comment(s): C/S x 4, cyst removed from forehead, EGD, left cataract with lens implant then retinal surgery d/t detachment, Lt cheek abscesses incision and drainages. Past Anesthesia/Blood Transfusion Reactions: Motion Sickness, Postoperative Nausea & Vomiting (PONV) Past Psychological History: Anxiety Additional Psychological History / Comment(s): Pt resides with her spouse and 3 out of their 4 children who are all adults. They do own a walker. She no longer drives d/t vision problems, her spouse or son drive her places. Smoking Status: Never smoker Past Alcohol Use History: None Reported Past Drug Use History: None Reported - Past Family History Father Family Medical History: Cancer Additional Family Medical History / Comment(s): cancerous polyp Mother Family Medical History: Hypertension Additional Family Medical History / Comment(s): Mother had irregular heartbeat and boarderline diabetes. Medications and Allergies Home Medications Medication Instructions Recorded Confirmed Type Albuterol Sulfate [Proair Hfa] 2 puff INHALATION RT-Q4H PRN 02/25/17 12/15/18 History Citalopram Hydrobromide [CeleXA] 40 mg PO DAILY 02/25/17 12/15/18 History Gabapentin 600 mg PO TID 02/25/17 12/15/18 History Fluticasone Nasal [place] [Flonase 1 - 2 spray EA NOSTRIL HS PRN 08/15/17 12/15/18 History Nasal [place]] Albuterol Nebulized [Ventolin 2.5 mg INHALATION RT-QID PRN 11/14/17 12/15/18 History Nebulized] Cetirizine HCl [Zyrtec] 10 mg PO DAILY 11/14/17 12/15/18 History Gemfibrozil [Lopid] 600 mg PO BID 11/14/17 12/15/18 History cloNIDine HCL [Catapres] 0.2 mg PO TID #90 tab 11/20/17 12/15/18 Rx ALPRAZolam [Xanax] 0.5 mg PO DAILY PRN 10/16/18 12/15/18 History Carvedilol [Coreg] 25 mg PO BID 10/16/18 12/15/18 History Furosemide [Lasix] 40 mg PO DAILY 10/16/18 12/15/18 History Pantoprazole Sodium [Protonix] 40 mg PO DAILY 10/16/18 12/15/18 History traZODone HCL [Desyrel] 100 mg PO HS 10/16/18 12/15/18 History Insuln Asp Prt/Insulin Aspart 20 unit SQ AC-BID #1 vial 10/20/18 12/15/18 Rx [NovoLOG MIX 70-30 VIAL] Insulin Glargine,Hum.rec.anlog 30 unit SQ DAILY 12/02/18 12/15/18 History [Lantus Solostar] Loperamide [Imodium] 2 mg PO QID PRN #30 cap 12/06/18 12/15/18 Rx Allergies Allergy/AdvReac Type Severity Reaction Status Date / Time adhesive tape Allergy Itching/swe Verified 12/15/18 10:11 lling hydrocodone [From [place]] Allergy Hallucinati Verified 12/15/18 10:11 ons/vomitin g measles, mumps, and rubella Allergy Rash/Hives Verified 12/15/18 10:11 vaccine Penicillins Allergy Anaphylaxis Verified 12/15/18 10:11 shellfish derived [Shrimp] Allergy Rash/Hives Verified 12/15/18 10:11 Sulfa (Sulfonamide Allergy Anaphylaxis Verified 12/15/18 10:11 Antibiotics) Physical Exam Vitals: Vital Signs Temp Pulse Pulse Resp BP BP Pulse Ox 12/16/18 08:40 97.6 F 76 20 122/66 94 L 12/16/18 07:25 84 12/16/18 07:10 76 12/16/18 03:15 97.7 F 76 18 123/87 96 12/16/18 00:00 97.7 F 81 18 120/68 95 12/15/18 20:58 78 12/15/18 20:43 76 12/15/18 20:38 98.1 F 80 22 132/61 97 12/15/18 17:13 76 12/15/18 17:04 74 12/15/18 16:00 97.7 F 87 20 163/88 96 12/15/18 13:12 99.1 F 71 23 12/15/18 13:00 151/82 12/15/18 12:53 84 24 157/92 94 L 12/15/18 12:30 84 29 H 164/74 12/15/18 12:17 84 12/15/18 12:09 85 12/15/18 12:00 84 28 H 155/75 93 L 12/15/18 11:30 85 35 H 140/85 92 L Intake and Output 12/15/18 12/16/18 12/16/18 22:59 06:59 14:59 Intake Total 120 100 480 Balance 120 100 480 Intake: Oral 120 100 480 Other: Weight 95.3 kg Results - Lab Results Most recent lab results Calcium 8.4 mg/dL (8.4-10.2) 12/15/18 10:40 Magnesium 1.8 mg/dL (1.6-2.3) 12/15/18 10:40 12/15/18 10:40 12/15/18 10:40 Assessment and Plan Plan: Assessment: 1. Acute kidney injury mostly prerenal secondary to diuresis. Creatinine 2.17 on admission. Labs from today pending. 2. Diastolic CHF. 3. Volume overload. 4. Hypertension with chronic kidney disease. Controlled. 5. Insulin-dependent diabetes mellitus. 6. Diarrhea. Now resolved. 7. Chronic kidney disease stage IV secondary to diabetic kidney disease and cardiorenal syndrome with baseline creatinine near 2. Plan: Maintain Lasix 80 mg IV twice daily. Can be transitioned over to oral diuretics tomorrow. Follow-up echocardiogram. Avoid nephrotoxins. Repeat electrolytes in the morning. Thank you for the consultation. I will continue to follow the patient with you during her hospital stay.
[2018-12-16 11:33] LABS: Calcium 8.5 mg/dL (8.4-10.2); Magnesium 1.8 mg/dL (1.6-2.3)
[2018-12-16] MEDS: hydrALAZINE HCL 25 MG TAB PO SCH ×2 (12:14→20:59)
[2018-12-16] MEDS: ISOSORBIDE MONONITRATE ER 15 MG TAB PO SCH (12:14)
[2018-12-16 12:18] LABS: Glucose,Whole Blood 176 mg/dL (75-99)
[2018-12-16 17:11] LABS: Glucose,Whole Blood 166 mg/dL (75-99)
[2018-12-16] MEDS: ACETAMINOPHEN TAB 325 MG TAB PO PRN (18:00)
--- NOTE | 2018-12-16 18:45 | P.CONS ---
History of Present Illness - Reason for Consult Consult date: 12/16/18 Diarrhea Requesting physician: Robbie Nieves - Chief Complaint Shortness of breath, diarrhea - History of Present Illness 53-year-old female with a known medical history of asthma, diastolic heart failure, anemia, hypertension, diabetes mellitus and previous episode of pancreatitis who presented to the hospital with multiple complaints. The patient reports increasing difficulty breathing, shortness of breath and lower extremity swelling as well as 18 days of loose stool. The patient reports that the diarrhea began after a trip to [place] during which she ate. She reports that her and [id number] were fine, however her son as well as her self developed symptoms. She reports that the diarrhea had been predominantly watery stools multiple times per day. She had recently been started on Lomotil in the outpatient setting with some improvement in her symptoms. She denies any associated hematochezia or melena. Currently she is reporting no bowel movements today. In addition the patient had reported increasing lower extremity swelling, shortness of breath and difficulty breathing and was found to be fluid overloaded on presentation with chest x-ray showing mild vascular congestion. The patient had her last EGD on 01/02/2018 during which she was found to have antritis and healed ulcers in the antrum of the stomach. Labs on presentation were significant for a WBC 13.4, hemoglobin 8.8 (9.0 on 12/05/2018), platelet count 152,000, INR 0.9, total bilirubin 0.5, alkaline phosphatase 104, AST 13 and ALT 25. Review of Systems REVIEW OF SYSTEMS: CONSTITUTIONAL: Denies any fevers, chills, weight change but does report fatigue. CARDIOVASCULAR: Denies any chest pain, palpitations high or low blood pressures, bilateral lower extremity swelling. RESPIRATORY: Denies any hemoptysis or cough, but does report shortness of breath worse with exertion.. GENITOURINARY: No dysuria or hematuria. MUSCULOSKELETAL: No weakness reported. SKIN: Denies any new rashes or lesions, jaundice or pallor. PSYCHIATRIC: Denies any depression or anxiety. NEUROLOGY: Denies headache, denies any new focal deficits. EARS/NOSE/THROAT: No recent hearing change, congestion, nasal discharge or sore throat. EYES: No pain in eyes, discharge or change in vision. GASTROINTESTINAL: As per HPI. 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 History of Any Multi-Drug Resistant Organisms: MRSA Year Discovered:: 04/19/18 MDRO Source:: face Past Surgical History: Section, Uterine Ablation Additional Past Surgical History / Comment(s): C/S x 4, cyst removed from forehead, EGD, left cataract with lens implant then retinal surgery d/t detachment, Lt cheek abscesses incision and drainages. Past Anesthesia/Blood Transfusion Reactions: Motion Sickness, Postoperative Na usea & Vomiting (PONV) Past Psychological History: Anxiety Additional Psychological History / Comment(s): Pt resides with her spouse and 3 out of their 4 children who are all adults. They do own a walker. She no longer drives d/t vision problems, her spouse or son drive her places. Smoking Status: Never smoker Past Alcohol Use History: None Reported Past Drug Use History: None Reported - Past Family History Father Family Medical History: Cancer Additional Family Medical History / Comment(s): cancerous polyp Mother Family Medical History: Hypertension Additional Family Medical History / Comment(s): Mother had irregular heartbeat and boarderline diabetes. Medications and Allergies Home Medications Medication Instructions Recorded Confirmed Type Albuterol Sulfate [Proair Hfa] 2 puff INHALATION RT-Q4H PRN 02/25/17 12/15/18 History Citalopram Hydrobromide [CeleXA] 40 mg PO DAILY 02/25/17 12/15/18 History Gabapentin 600 mg PO TID 02/25/17 12/15/18 History Fluticasone Nasal [place] [Flonase 1 - 2 spray EA NOSTRIL HS PRN 08/15/17 12/15/18 History Nasal [place]] Albuterol Nebulized [Ventolin 2.5 mg INHALATION RT-QID PRN 11/14/17 12/15/18 History Nebulized] Cetirizine HCl [Zyrtec] 10 mg PO DAILY 11/14/17 12/15/18 History Gemfibrozil [Lopid] 600 mg PO BID 11/14/17 12/15/18 History cloNIDine HCL [Catapres] 0.2 mg PO TID #90 tab 11/20/17 12/15/18 Rx ALPRAZolam [Xanax] 0.5 mg PO DAILY PRN 10/16/18 12/15/18 History Carvedilol [Coreg] 25 mg PO BID 10/16/18 12/15/18 History Furosemide [Lasix] 40 mg PO DAILY 10/16/18 12/15/18 History Pantoprazole Sodium [Protonix] 40 mg PO DAILY 10/16/18 12/15/18 History traZODone HCL [Desyrel] 100 mg PO HS 10/16/18 12/15/18 History Insuln Asp Prt/Insulin Aspart 20 unit SQ AC-BID #1 vial 10/20/18 12/15/18 Rx [NovoLOG MIX 70-30 VIAL] Insulin Glargine,Hum.rec.anlog 30 unit SQ DAILY 12/02/18 12/15/18 History [Lantus Solostar] Loperamide [Imodium] 2 mg PO QID PRN #30 cap 12/06/18 12/15/18 Rx Allergies Allergy/AdvReac Type Severity Reaction Status Date / Time adhesive tape Allergy Itching/swe Verified 12/15/18 10:11 lling hydrocodone [From [place]] Allergy Hallucinati Verified 12/15/18 10:11 ons/vomitin g measles, mumps, and rubella Allergy Rash/Hives Verified 12/15/18 10:11 vaccine Penicillins Allergy Anaphylaxis Verified 12/15/18 10:11 shellfish derived [Shrimp] Allergy Rash/Hives Verified 12/15/18 10:11 Sulfa (Sulfonamide Allergy Anaphylaxis Verified 12/15/18 10:11 Antibiotics) Physical Exam Vitals: Vital Signs Temp Pulse Pulse Resp BP Pulse Ox 12/16/18 16:00 78 20 133/62 94 L 12/16/18 15:49 86 12/16/18 15:39 84 16 12/16/18 12:00 78 20 125/65 95 12/16/18 11:32 88 12/16/18 11:23 80 12/16/18 08:40 97.6 F 76 20 122/66 94 L 12/16/18 07:25 84 12/16/18 07:10 76 12/16/18 03:15 97.7 F 76 18 123/87 96 12/16/18 00:00 97.7 F 81 18 120/68 95 12/15/18 20:58 78 12/15/18 20:43 76 12/15/18 20:38 98.1 F 80 22 132/61 97 Intake and Output 12/16/18 12/16/18 12/16/18 06:59 14:59 22:59 Intake Total 100 960 Balance 100 960 Intake: Oral 100 960 Other: # Voids 1 Weight 95.3 kg On physical examination, patient appears comfortable in no apparent distress. HEAD: Normocephalic, atraumatic. EYES: No scleral icterus. No conjunctival injection. MOUTH: No lesions, tongue midline. NECK: Trachea midline, no gross abnormalities. CHEST: Coarse respiratory noises in all lung li with no wheezing appreciated. HEART: Regular rate and rhythm. ABDOMEN: Soft, obese. Bowel sounds are positive. No organomegaly. No guarding or rigidity. EXTREMITIES: Bilateral 2+ pedal edema. SKIN: No rashes, no jaundice. NEUROLOGIC: Alert and oriented x3. No focal deficits. Results CBC & Chem 7: 12/15/18 10:40 12/16/18 11:05 Labs: Abnormal Lab Results - Last 24 Hours (Table) 12/15/18 12/16/18 12/16/18 Range/Units 20:03 06:26 11:05 BUN 45 H (7-17) mg/dL Creatinine 2.67 H (0.52-1.04) mg/dL Glucose 173 H (74-99) mg/dL POC Glucose (mg/dL) 242 H 71 L (75-99) mg/dL 12/16/18 12/16/18 Range/Units 11:51 16:51 BUN (7-17) mg/dL Creatinine (0.52-1.04) mg/dL Glucose (74-99) mg/dL POC Glucose (mg/dL) 176 H 166 H (75-99) mg/dL Microbiology - Last 24 Hours (Table) 12/15/18 10:40 Blood Culture - Preliminary Blood No Growth after 24 hours Chest x-ray: report reviewed (Mild vascular congestion on chest x-ray) Assessment and Plan (1) Diarrhea Narrative/Plan: 53-year-old presenting with subacute diarrhea likely infectious in etiology after the patient had a recent trip to [place]. Symptoms are currently improved. Stool studies have been ordered. The patient did have symptomatic improvement with Lomotil in the outpatient setting. Current Visit: No Status: Acute Code(s): R19.7 - DIARRHEA, UNSPECIFIED SNOMED Code(s): 10045394 (2) Anemia Narrative/Plan: Chronic normocytic anemia with no signs or symptoms of GI bleeding in patient's hemoglobin currently at baseline. Previous endoscopic evaluation in 12/2017 showed healed gastric ulcers. Current Visit: Yes Status: Acute Code(s): D64.9 - ANEMIA, UNSPECIFIED SNOMED Code(s): 250116307 (3) Acute renal failure Current Visit: Yes Status: Acute Code(s): N17.9 - ACUTE KIDNEY FAILURE, UNSPECIFIED SNOMED Code(s): 93788631 Plan: Supportive care Okay for diet, have changed to lactose free/low fiber in the setting of subacute diarrhea Stool studies ordered Continue diuresis Appreciate recommendations from nephrology service Okay for antidiarrheals as needed Continue to monitor hemoglobin and hematocrit and transfuse as needed Thank you for allowing us to participate in the care of the patient we will continue to follow
[2018-12-16] MEDS: traZODone HCL 100 MG TAB PO SCH (21:00)
[2018-12-16 21:03] LABS: Glucose,Whole Blood 119 mg/dL (75-99)
--- NOTE | 2018-12-16 21:09 | CONS ---
CONSULTATION PULMONARY/CRITICAL CARE CONSULTATION: DATE OF SERVICE: 12/16/2018 This is a 53-year-old female with a history of asthma and anemia. She actually sees my partner Dr. Blanc for her asthma. She comes into the emergency department with complaints of 18 days of diarrhea. She also complains of difficulty breathing. She also has a cough. She has no fever or chills. She admits to some increased edema to the lower extremities. She has gained some weight. There is no chest pain or palpitations. No genitourinary complaints. She denies any vomiting of blood or black tarry stools. She was evaluated in the emergency room and admitted with a diagnosis of primarily an exacerbation of heart failure. Currently, the chest x-ray on admission shows evidence of fluid overload, but the followup chest x-ray shows improvement. She is clinically feeling better than when she first came into the emergency department. Her asthma does not appear to be active. She denies any wheezing. She is coughing but not producing any phlegm. HOME MEDICATIONS: Include albuterol inhaler, Celexa, gabapentin, Flonase nasal spray, albuterol updrafts, Zyrtec, Lopid, Xanax, Coreg, Lasix Protonix, Desyrel, insulin, Catapres and Imodium. ALLERGIES: Multiple include ADHESIVE TAPE, NORCO, AND THE MMR VACCINE, PENICILLIN, SHELLFISH and SULFA ANTIBIOTICS. PAST MEDICAL HISTORY: Includes mild asthma, diabetes mellitus, GERD, hyperlipidemia, hypertension, pneumonia and chronic kidney disease. She also has a history of recent sinus infection treated with antibiotics, neuropathy, history of previous hyperosmolar coma, loss of vision in left eye secondary to retinal damage, iron deficiency anemia, pancreatitis, stomach ulcer, hiatal hernia, bronchitis and migraine cephalgia. She also apparently has a history of vitamin D deficiency, facial cellulitis, and previous MRSA infection. SURGICAL HISTORY: Includes among other things, , uterine ablation, cyst removal multiple times, EGD, cataract surgery, retinal detachment surgery, left cheek abscess, incision and drainage among other things. SOCIAL HISTORY: Significant that she is a lifelong nonsmoker. Denies any alcohol or illicit drug use. FAMILY HISTORY: Positive for irregular heartbeat, diabetes, and cancerous polyp. REVIEW OF SYSTEMS: CONSTITUTIONAL: Negative. NEUROLOGIC: Negative. HEENT: Negative. CARDIOVASCULAR: Negative. PULMONARY: Shortness of breath, cough without production. GI: Negative. : Negative. RHEUMATOLOGIC: Negative. IMMUNOLOGIC: Negative. ENDOCRINOLOGIC: Negative. DERMATOLOGIC: Negative. PHYSICAL EXAMINATION: Vital signs are reviewed. Temperature 97.6, heart rate 86, respiratory rate 16, blood pressure 125/65, mean 85 and 3 L saturation 95%. She is sitting up in chair. She seems to be resting comfortably. There is no acute distress. No conversational dyspnea. No use of accessory muscles or audible wheezing. HEENT examination is grossly unremarkable. Nasal O2 in place. NECK: Supple. Full range of motion. No adenopathy or thyromegaly. Neck veins are flat. CARDIOVASCULAR examination reveals a regular rhythm and rate. Heart sounds are distant. No distinct murmur noted. LUNGS: Reveal bibasilar crackles. No wheezes or rhonchi. Breath sounds are diminished. ABDOMEN: Soft. Bowel sounds are heard. EXTREMITIES: Reveal mild edema. No cyanosis or clubbing. SKIN: Without lesion. NEUROLOGIC examination is brief but nonfocal. White count 13.4, hemoglobin 8.8, hematocrit 27.0, platelet count 152,000. PT/INR normal. PTT 19.3. D-dimer 2.01. Sodium, potassium, chloride, CO2 all normal. Anion gap is normal. BUN and creatinine were 45 and 2.67. This in part relates to the diuresis. Her N-terminal proBNP was quite high at 13,300. Albumin 2.8. Troponins were 0.031 x 2. Medications are reviewed. Adjustments will be made accordingly. ASSESSMENT: 1. Shortness of breath, likely related to underlying congestive heart failure more than anything else. Asthma appears to be relatively stable. 2. History of asthma, seemingly mild as the patient manages this with short-acting beta agonist, and not active at this time. 3. History of diabetes mellitus. 4. History of gastroesophageal reflux disease. 5. Hyperlipidemia by history. 6. History of hypertension. 7. History of chronic kidney disease. 8. History of pneumonia. 9. History of bilateral lower extremity neuropathy. 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 11.Iron deficiency anemia. 12.History of pancreatitis. 13.History of stomach ulcer. 14.History of bronchitis. 15.Migraine cephalgia. 16.Vitamin D deficiency. 17.Facial cellulitis. PLAN: The patient seems to be relatively stable. Medications will be reviewed. We will get her back on her nebulized albuterol as needed. No additional recommendations are made. I do not believe her asthma is active at this time. Her chest x-ray is dramatically improved in less than 24 hours, suggesting that there was acute congestion which caused her difficulty in breathing. Also, her N-terminal proBNP was quite high. Additional recommendations and suggestions are forthcoming. MMODL / IJN: [id number] /
[2018-12-16] MEDS: INSULIN DETEMIR (LEVEMIR) 100 UNIT/ML SYR SQ SCH (22:19)
[2018-12-17] MEDS: ACETAMINOPHEN TAB 325 MG TAB PO PRN (02:59)
[2018-12-17 06:30] LABS: Glucose,Whole Blood 147 mg/dL (75-99)
[2018-12-17] MEDS: INSULIN ASPART (NovoLOG) 100 UNIT/ML VIAL SQ SCH ×7 (06:33→21:44)
[2018-12-17] MEDS: CARVEDILOL 12.5 MG TAB PO SCH ×2 (06:34→17:18)
[2018-12-17 07:22] LABS: Calcium 8.7 mg/dL (8.4-10.2); Magnesium 1.9 mg/dL (1.6-2.3); Potassium 4.1 mmol/L (3.5-5.1)
[2018-12-17] MEDS: ISOSORBIDE MONONITRATE ER 15 MG TAB PO SCH (09:09)
[2018-12-17] MEDS: LORATADINE 10 MG TAB PO SCH (09:09)
[2018-12-17] MEDS: hydrALAZINE HCL 25 MG TAB PO SCH ×2 (09:09→21:09)
[2018-12-17] MEDS: IPRATROPIUM-ALBUTEROL 3 ML NEB INHALATION SCH ×4 (09:09→21:25)
[2018-12-17] MEDS: GABAPENTIN 300 MG CAP PO SCH ×3 (09:09→21:09)
[2018-12-17] MEDS: cloNIDine HCL 0.2 MG TAB PO SCH ×3 (09:09→21:09)
[2018-12-17] MEDS: CITALOPRAM HYDROBROMIDE 20 MG TAB PO SCH (09:09)
[2018-12-17] MEDS: FUROSEMIDE 10 MG/ML 10 ML VIAL IV SCH ×2 (11:25→21:09)
[2018-12-17 11:38] LABS: Glucose,Whole Blood 95 mg/dL (75-99)
--- NOTE | 2018-12-17 14:35 | P.PN ---
Subjective Progress Note Date: 12/17/18 This pleasant 53-year-old female patient with history of hypertension, diabetes, chronic diarrhea, chronic renal failure, anemia and asthma. She apparently followed up with a physician from our office, likely Dr. Kenny after hospitalization in April at which time she had an echocardiogram that showed normal LV systolic function. She presented to the emergency department this admission with complaints of ongoing diarrhea as well as the development of significant shortness of breath, dyspnea on exertion, edema, weight gain and orthopnea. We were asked to see The patient in consultation for pulmonary edema and elevated troponin. Chest x-ray showed renomegaly and vascular congestion without wandy edema. Lab evaluation White blood cell count of 13,000, hemoglobin 8.8, BUN 36, creatinine 2.17 and NT proBNP of 13,300. Initial troponin was elevated at 0.054 with subsequent troponins of 0.029, 0.031 and 0.031. Upon examination, patient is resting comfortably in bed. She continues to complain of dyspnea on exertion, orthopnea and edema. She has been started on Rocephin and Zithromax. She has not had diarrhea today. 12/17/2018 Patient was seen and examined this morning, overall she does state that she's feeling somewhat better.blood pressure 120/60 with a heart rate in the 70s, 98% on recent oxygen. Sodium 142, potassium 4.1, BUN 51 and creatinine 2.7, magnesium 1.9 today.continues to have bilateral lower extremity edema. Objective - Vital Signs Vital signs: Vital Signs Temp 97.6 F 12/17/18 12:00 Pulse 84 12/17/18 12:31 Resp 18 12/17/18 12:00 BP 121/66 12/17/18 12:00 Pulse Ox 98 12/17/18 12:00 Intake & Output 12/16/18 12/17/18 12/17/18 18:59 06:59 18:59 Intake Total 960 700 480 Output Total 1300 500 Balance 960 -600 -20 Intake: Oral 960 700 480 Output: Urine 1300 500 Other: # Voids 1 2 - Exam PHYSICAL EXAMINATION: HEENT: Head is atraumatic, normocephalic. Pupils equal, round. Neck is supple. There is no elevated jugular venous pressure. HEART EXAMINATION: Heart sounds regular, S1 and S2 normal. No murmur or gallop heard. CHEST EXAMINATION: Lungs reveal expiratory wheezing throughout and crackles bilateral bases. No chest wall tenderness is noted on palpation or with deep breathing. ABDOMEN: Soft, obese, nontender. Bowel sounds are heard. No organomegaly noted. EXTREMITIES: 2+ peripheral pulses with evidence of mild peripheral edema and no calf tenderness noted. NEUROLOGIC patient is awake, alert and oriented x3. - Labs CBC & Chem 7: 12/15/18 10:40 12/17/18 06:48 Labs: Abnormal Lab Results - Last 24 Hours (Table) 12/16/18 12/16/18 12/17/18 Range/Units 16:51 21:02 06:29 Chloride (98-107) mmol/L BUN (7-17) mg/dL Creatinine (0.52-1.04) mg/dL Glucose (74-99) mg/dL POC Glucose (mg/dL) 166 H 119 H 147 H (75-99) mg/dL 12/17/18 Range/Units 06:48 Chloride 108 H (98-107) mmol/L BUN 51 H (7-17) mg/dL Creatinine 2.79 H (0.52-1.04) mg/dL Glucose 132 H (74-99) mg/dL POC Glucose (mg/dL) (75-99) mg/dL Microbiology - Last 24 Hours (Table) 12/15/18 10:40 Blood Culture - Preliminary Blood No Growth after 48 hours 12/16/18 12:54 Stool Culture - Preliminary Stool Assessment and Plan Plan: Assessment: #1 acute on chronic congestive heart failure, likely diastolic with most recent echocardiogram showing normal LV systolic function #2 chronic diarrhea #3 chronic renal failure #4 hypertension #5 diabetes plan From cardiology's perspective, we'll recommend to continue current dose of IV Lasix. Repeat chest x-ray. DNP note has been reviewed, I agree with a documented findings and plan of care. Patient was seen and examined.
--- NOTE | 2018-12-17 14:43 | XR ---
EXAMINATION TYPE: XR chest 2V DATE OF EXAM: 12/17/2018 COMPARISON: 12/16/2018 TECHNIQUE: PA and lateral views submitted. HISTORY: Shortness of breath FINDINGS: There is left perihilar and upper lobe subsegmental consolidation. The heart is enlarged. No overt fa ilure. Hypertrophic and degenerative change of the spine. IMPRESSION: 1. Left upper lobe atelectasis or early infiltrate.
--- NOTE | 2018-12-17 16:07 | PN ---
PROGRESS NOTE Patient is seen for followup for acute kidney injury on top of chronic kidney disease. She was admitted to the hospital with complaints of diarrhea. The patient was also in CHF and volume overload. She is currently maintained on Lasix 80 mg IV q.12 hours. She states she is feeling better. She does not have any further diarrhea. Her weight is down from 113 kg on admission to 95 kg currently. 24 hour urine output documented at 1.3 L. Chest x-ray from this morning shows no overt heart failure. PHYSICAL EXAMINATION: This morning blood pressure was 127/74, heart rate of 72 per minute. Patient is afebrile. Examination of the heart S1, S2. Examination of the lungs, bilateral breath sounds are heard. Abdomen is soft, nontender. Examination lower extremities, shows 1+ edema. ROAD INSPECTOR exam is grossly intact. LABS SHOW: Sodium 142, potassium 4.1, BUN 51, serum creatinine 2.79, calcium 8.7, magnesium 1.9. ASSESSMENT: 1. Acute kidney injury, mainly cardiorenal. The serum creatinine has gone up from 2.1 to 2.79 mg/dL. The patient is being diuresed. Chest x-ray is much improved. The patient's weight has also decreased. I will decrease the dose of IV Lasix. We need to avoid the hypotension. Currently, blood pressure is not significantly low. The patient is also not on any nephrotoxic medications. I will check a urinalysis as we do not have a UA on this admission. 2. Hypertension, partly volume sensitive, currently controlled and improved. 3. Congestive heart failure, acute on top of chronic, mainly diastolic, maintained on IV Lasix. 4. Diarrhea, most likely infectious in etiology. Patient is being followed by Gastroenterology. She did have a recent trip to [place] asymptomatically improved. 5. Anemia. No active bleeding noted. Check stool for occult blood. PLAN: Check stool for occult blood. Decrease IV Lasix and repeat labs in a.m. Check urinalysis. MMODL / IJN: [id number] /
[2018-12-17 16:51] LABS: Glucose,Whole Blood 145 mg/dL (75-99)
--- NOTE | 2018-12-17 17:38 | P.PN ---
Subjective Progress Note Date: 12/17/18 Principal diagnosis: Diarrhea Patient seen lying in bed. She reports one formed bowel movement. No abdominal pain reported. She still noting shortness of breath. Objective - Vital Signs Vital signs: Vital Signs Temp 97.6 F 12/17/18 08:00 Pulse 88 12/17/18 12:17 Resp 20 12/17/18 08:00 BP 127/74 12/17/18 08:00 Pulse Ox 99 12/17/18 08:00 Intake & Output 12/16/18 12/17/18 12/17/18 18:59 06:59 18:59 Intake Total 960 700 240 Output Total 1300 Balance 960 -600 240 Intake: Oral 960 700 240 Output: Urine 1300 Other: # Voids 1 2 - Exam On physical examination, patient appears comfortable in no apparent distress. HEAD: Normocephalic, atraumatic. EYES: No scleral icterus. No conjunctival injection. MOUTH: No lesions, tongue midline. NECK: Trachea midline, no gross abnormalities. CHEST: Coarse respiratory noises in all lung li. HEART: Regular rate and rhythm. ABDOMEN: Soft, obese. Bowel sounds are positive. No organomegaly. No guarding or rigidity. EXTREMITIES: Bilateral pedal edema. SKIN: No rashes, no jaundice. NEUROLOGIC: Alert and oriented x3. No focal deficits. - Labs CBC & Chem 7: 12/15/18 10:40 12/17/18 06:48 Labs: Abnormal Lab Results - Last 24 Hours (Table) 12/16/18 12/16/18 12/17/18 Range/Units 16:51 21:02 06:29 Chloride (98-107) mmol/L BUN (7-17) mg/dL Creatinine (0.52-1.04) mg/dL Glucose (74-99) mg/dL POC Glucose (mg/dL) 166 H 119 H 147 H (75-99) mg/dL 12/17/18 Range/Units 06:48 Chloride 108 H (98-107) mmol/L BUN 51 H (7-17) mg/dL Creatinine 2.79 H (0.52-1.04) mg/dL Glucose 132 H (74-99) mg/dL POC Glucose (mg/dL) (75-99) mg/dL Microbiology - Last 24 Hours (Table) 12/16/18 12:54 Stool Culture - Preliminary Stool 12/15/18 10:40 Blood Culture - Preliminary Blood No Growth after 24 hours Assessment and Plan (1) Diarrhea Narrative/Plan: 53-year-old presenting with subacute diarrhea likely infectious in etiology aft er the patient had a recent trip to [place]. Symptoms are currently improved. Stool studies have been and negative today. The patient did have symptomatic improvement with Lomotil in the outpatient setting. Current Visit: No Status: Acute Code(s): R19.7 - DIARRHEA, UNSPECIFIED SNOMED Code(s): 17060818 (2) Anemia Narrative/Plan: Chronic normocytic anemia with no signs or symptoms of GI bleeding in patient's hemoglobin currently at baseline. Previous endoscopic evaluation in 12/2017 showed healed gastric ulcers. Current Visit: Yes Status: Acute Code(s): D64.9 - ANEMIA, UNSPECIFIED SNOMED Code(s): 878436684 (3) Acute renal failure Current Visit: Yes Status: Acute Code(s): N17.9 - ACUTE KIDNEY FAILURE, UNSPECIFIED SNOMED Code(s): 77358557 Plan: Supportive care Okay for diet, have changed to lactose free/low fiber in the setting of subacute diarrhea Stool studies negative to date Continue diuresis Appreciate recommendations from nephrology service Okay for antidiarrheals as needed Continue to monitor hemoglobin and hematocrit and transfuse as needed Thank you for allowing us to participate in the care of the patient GI service will stand by, please call us with any questions or concerns or if the patient has recurrence of symptoms
--- NOTE | 2018-12-17 17:42 | P.PN ---
Subjective Progress Note Date: 12/17/18 Principal diagnosis: Shortness of breath, likely related to acute exacerbation of congestive heart failure 12/17/2018 patient seen in follow-up on selective care unit, she is sleeping comfortably in bed, in no acute distress, we did wake, and patient states that overall her breathing is improving, she is feeling somewhat better. Less signs are stable, she is at 98% on 3 L of oxygen, she is afebrile, hemodynamically stable. He is on IV diuretics, 80 mg every 12 hours, continue negative fluid balance, and lower extremity edema is improving, lung sounds reveal diminished b reath sounds at the bases, minimal wheezing, and bibasilar crackles. No chest wall tenderness, no hemoptysis. Fever or chills. Stool cultures are pending, so far no growth. And have been reviewed, BNP showed a sodium of 142, potassium is 4.1, chloride is 108, CO2 is 28, B1 is 51, creatinine is 2.79. No further episodes of diarrhea. Patient is being followed by gastroenterology, she did have a recent trip to [place], and the diarrhea is improved. Chest x-ray from this morning shows left upper lobe atelectasis or early infiltrate. Objective - Vital Signs Vital signs: Vital Signs Temp 97.6 F 12/17/18 12:00 Pulse 82 12/17/18 17:13 Resp 18 12/17/18 12:00 BP 121/66 12/17/18 12:00 Pulse Ox 98 12/17/18 12:00 Intake & Output 12/16/18 12/17/18 12/17/18 18:59 06:59 18:59 Intake Total 960 700 480 Output Total 1300 500 Balance 960 -600 -20 Intake: Oral 960 700 480 Output: Urine 1300 500 Other: # Voids 1 2 - Exam GENERAL EXAM: Alert, pleasant,obese 53-year-old female on 3 L of oxygen sats at 98% comfortable in no apparent distress. HEAD: Normocephalic/atraumatic. EYES: Normal reaction of pupils, equal size. Conjunctiva pink, sclera white. NOSE: Clear with pink turbinates. THROAT: No erythema or exudates. NECK: No masses, no JVD, no thyroid enlargement, no adenopathy. CHEST: No chest wall deformity. Symmetrical expansion. LUNGS: Equal air entry with bibasilar crackles CVS: Regular rate and rhythm, normal S1 and S2, no gallops, no murmurs, no rubs ABDOMEN: Soft, nontender. No hepatosplenomegaly, normal bowel sounds, no guarding or rigidity. EXTREMITIES: No clubbing, no edema, no cyanosis, 2+ pulses and upper and lower extremities. MUSCULOSKELETAL: Muscle strength and tone normal. SPINE: No scoliosis or deformity SKIN: No rashes CENTRAL NERVOUS SYSTEM: Alert and oriented -3. No focal deficits, tone is n ormal in all 4 extremities. PSYCHIATRIC: Alert and oriented -3. Appropriate affect. Intact judgment and insight. - Labs CBC & Chem 7: 12/15/18 10:40 12/17/18 06:48 Labs: Abnormal Lab Results - Last 24 Hours (Table) 12/16/18 12/17/18 12/17/18 Range/Units 21:02 06:29 06:48 Chloride 108 H (98-107) mmol/L BUN 51 H (7-17) mg/dL Creatinine 2.79 H (0.52-1.04) mg/dL Glucose 132 H (74-99) mg/dL POC Glucose (mg/dL) 119 H 147 H (75-99) mg/dL 12/17/18 Range/Units 16:42 Chloride (98-107) mmol/L BUN (7-17) mg/dL Creatinine (0.52-1.04) mg/dL Glucose (74-99) mg/dL POC Glucose (mg/dL) 145 H (75-99) mg/dL Microbiology - Last 24 Hours (Table) 12/15/18 10:40 Blood Culture - Preliminary Blood No Growth after 48 hours 12/16/18 12:54 Stool Culture - Preliminary Stool Assessment and Plan Plan: Assessment: #1. Shortness of breath related to acute exacerbation of congestive heart failure, likely diastolic in nature #2. History of chronic bronchial asthma, mild intermittent, not currently active. #3. History of diabetes mellitus with peripheral neuropathy and retinopathy #4. GERD/Reflux #5. Hypertension, hyperlipidemia #6. Previous episode of pneumonia #7. History of chronic kidney disease, unspecified stage #8. Iron deficiency anemia #9. He of pancreatitis #10. History of gastric ulcer #11. Recurrent cephalgia #12. Vitamin D deficiency Plan: Continue diuresis, fluid volume status is improving, patient's maintaining negative fluid balance, wean FiO2, daily labs, monitor electro-lytes and renal profile, his chest x-ray has been reviewed and showed no overt heart failure. His activity as tolerated, will continue to follow I performed a history & physical examination of the patient and discussed their management with my nurse practitioner, Jessi Rinaldi. I reviewed the nurse practitioner's note and agree with the documented findings and plan of care. Lung sounds are positive for basilar crackles. The findings and the impression was discussed with the patient. I attest to the documentation by the nurse practitioner. Time with Patient: Less than 30
--- NOTE | 2018-12-17 18:28 | PN ---
PROGRESS NOTE CHIEF COMPLAINT: Pneumonitis and congestive heart failure. HISTORY OF PRESENT ILLNESS: This lady is still congested and still wheezy. Blood sugars have been falling and we will decrease the insulin. PHYSICAL EXAMINATION: Color is still not ideal. Neck veins are not distended. Chest still demonstrates wheezing on inspiration and expiration with bilateral rhonchi and rales. Cardiac exam is normal. ABDOMEN: Soft nontender. IMPRESSION: 1. Pneumonitis. 2. Congestive heart failure. 3. Elevated troponin. 4. Poorly-controlled diabetes. 5. Anemia. PLAN: 1. Decrease insulin. 2. Await further recommendations from Pulmonology and Cardiology. MMODL / IJN: [id number] /
--- NOTE | 2018-12-17 19:32 | ECHOF ---
Referral Reason:CHF MEASUREMENTS -------- HEIGHT: 157.5 cm WEIGHT: 95.3 kg BP: 152/80 IVSd: 2.3 cm (0.6 - 1.1) LVIDd: 4.0 cm (3.9 - 5.3) LVPWd: 2.6 cm (0.6 - 1.1) IVSs: 2.6 cm LVIDs: 2.5 cm LVPWs: 2.9 cm RVIDd: 3.5 cm (< 3.3) LAESV Index (A-L): 26.96 ml/m Ao Diam: 3.0 cm (2.0 - 3.7) LA Diam: 4.6 cm (2.7 - 3.8) AV Cusp: 1.7 cm (1.5 - 2.6) EPSS: 0.5 cm MV E Jeet: 0.47 m/s MV DecT: 221 ms MV A Jeet: 0.78 m/s MV E/A Ratio: 0.61 RAP: 5.00 mmHg RVSP: 39.46 mmHg MV EF SLOPE: 43.46 mm/s (70 - 150) MV EXCURSION: 1.37 cm (> 18.000) FINDINGS -------- Sinus rhythm. This was a technically adequate study. The left ventricular size is normal. There is severe concentric left ventricular hypertrophy. Ove rall left ventricular systolic function is normal with, an EF between 55 - 60 %. The right ventricle is mildly enlarged. Left atrium is normal size by volume. The right atrial size is normal. Interatrial and interventricular septum intact. The aortic valve is trileaflet and appears structurally normal. The mitral valve is normal. Mild mitral regurgitation is present. Mild tricuspid regurgitation present. There is mild pulmonary hypertension. The right ventricular systolic pressure, as measured by Doppler, is 39.46mmHg. There is no pulmonic regurgitation present. The aortic root size is normal. The inferior vena cava was not well visualized. There is a trivial pericardial effusion present. CONCLUSIONS -------- 1. Sinus rhythm. 2. This was a technically adequate study. 3. The left ventricular size is normal. 4. There is severe concentric left ventricular hypertrophy. 5. The right ventricle is mildly enlarged. 6. Left atrium is normal size by volume. 7. The right atrial size is normal. 8. Interatrial and interventricular septum intact. 9. The aortic valve is trileaflet and appears structurally normal. 10. The mitral valve is normal. 11. Mild mitral regurgitation is present. 12. Mild tricuspid regurgitation present. 13. There is mild pulmonary hypertension. 14. The right ventricular systolic pressure, as measured by Doppler, is 39.46mmHg. 15. There is no pulmonic regurgitation present. 16. The aortic root size is normal. 17. The inferior vena cava was not well visualized. 18. There is a trivial pericardial effusion present. EXTENSION SERVICE AGENT: Amna Alvarado RDCS
[2018-12-17 21:00] LABS: Glucose,Whole Blood 178 mg/dL (75-99)
[2018-12-17] MEDS: traZODone HCL 100 MG TAB PO SCH (21:10)
[2018-12-17 21:24] LABS: Appearance,Urine Clear (Clear); Bilirubin,Urine Negative (Negative); Blood,Urine Negative (Negative); Color,Urine Light Yellow; Glucose,Urine (UA) Negative (Negative); Ketones,Urine Negative (Negative); Leukocyte Esterase,Urine Negative (Negative); Nitrite,Urine Negative (Negative); Protein,Urine Trace (Negative); Specific Gravity,Urine 1.009 (1.001-1.035); Urobilinogen,Urine <2.0 mg/dL (<2.0)
[2018-12-17] MEDS: INSULIN DETEMIR (LEVEMIR) 100 UNIT/ML SYR SQ SCH (21:24)
[2018-12-18 06:36] LABS: Glucose,Whole Blood 120 mg/dL (75-99)
[2018-12-18] MEDS: INSULIN ASPART (NovoLOG) 100 UNIT/ML VIAL SQ SCH ×7 (06:37→21:39)
[2018-12-18] MEDS: CARVEDILOL 12.5 MG TAB PO SCH ×2 (06:38→17:33)
[2018-12-18 07:31] LABS: Basophils % (A) 1 %; Eosinophils # (A) 2.6 k/uL (0-0.7); HCT 26.2 % (34.0-46.0); HGB 8.4 gm/dL (11.4-16.0); Lymphocytes # (A) 1.2 k/uL (1.0-4.8); Lymphocytes % (A) 16 %; MCH 27.6 pg (25.0-35.0); MCHC 31.9 g/dL (31.0-37.0); MCV 86.7 fL (80.0-100.0); Mean Platelet Volume 6.9; Monocytes # (A) 0.3 k/uL (0-1.0); Monocytes % (A) 4 %; Neutrophils # (A) 3.1 k/uL (1.3-7.7); Neutrophils % (A) 42 %; Platelet Count 221 k/uL (150-450); RBC 3.02 m/uL (3.80-5.40); RDW 15.5 % (11.5-15.5); WBC 7.4 k/uL (3.8-10.6)
[2018-12-18 07:54] LABS: Eosinophils % (A) 36 %
[2018-12-18] MEDS: LORATADINE 10 MG TAB PO SCH (08:08)
[2018-12-18] MEDS: cloNIDine HCL 0.2 MG TAB PO SCH ×3 (08:08→21:39)
[2018-12-18] MEDS: GABAPENTIN 300 MG CAP PO SCH ×3 (08:08→21:39)
[2018-12-18] MEDS: hydrALAZINE HCL 25 MG TAB PO SCH ×2 (08:08→21:39)
[2018-12-18] MEDS: FUROSEMIDE 10 MG/ML 10 ML VIAL IV SCH (08:08)
[2018-12-18] MEDS: CITALOPRAM HYDROBROMIDE 20 MG TAB PO SCH (08:08)
[2018-12-18] MEDS: ISOSORBIDE MONONITRATE ER 15 MG TAB PO SCH (08:09)
[2018-12-18 08:19] LABS: Albumin 3.1 g/dL (3.5-5.0); Calcium 8.8 mg/dL (8.4-10.2); Potassium 4.1 mmol/L (3.5-5.1); Total Bilirubin 0.3 mg/dL (0.2-1.3); Total Protein 6.1 g/dL (6.3-8.2)
[2018-12-18] MEDS: IPRATROPIUM-ALBUTEROL 3 ML NEB INHALATION SCH ×4 (09:39→19:19)
[2018-12-18 12:26] LABS: Glucose,Whole Blood 81 mg/dL (75-99)
[2018-12-18] MEDS: ACETAMINOPHEN TAB 325 MG TAB PO PRN ×2 (12:55→21:40)
--- NOTE | 2018-12-18 13:35 | P.PN ---
Subjective Progress Note Date: 12/18/18 Principal diagnosis: Acute exacerbation of diastolic congestive heart failure The patient was seen again today 12/18/2018 in follow-up on the selective care unit. She is currently sitting up at the bedside. Awake and alert in no acute distress. Maintaining good O2 saturations in the 90s on room air. Breathing easier today as compared to yesterday. She's been afebrile. Blood culture reveals no growth. White count 7.4. Hemoglobin 8.4. Creatinine 2.92. Currently on Lasix 80 mg every 12 hours. Objective - Vital Signs Vital signs: Vital Signs Temp 98.3 F 12/18/18 11:42 Pulse 72 12/18/18 11:42 Resp 18 12/18/18 11:42 BP 98/59 12/18/18 11:42 Pulse Ox 93 L 12/18/18 11:42 Intake & Output 12/17/18 12/18/18 12/18/18 18:59 06:59 18:59 Intake Total 480 675 200 Output Total 500 Balance -20 675 200 Weight 114.4 kg Intake: Oral 480 675 200 Output: Urine 500 Other: # Voids 1 - Exam GENERAL EXAM: Alert, pleasant,obese 53-year-old female on room air, comfortable in no apparent distress. HEAD: Normocephalic/atraumatic. EYES: Normal reaction of pupils, equal size. Conjunctiva pink, sclera white. NOSE: Clear with pink turbinates. THROAT: No erythema or exudates. NECK: No masses, no JVD, no thyroid enlargement, no adenopathy. CHEST: No chest wall deformity. Symmetrical expansion. LUNGS: Equal air entry with bibasilar crackles CVS: Regular rate and rhythm, normal S1 and S2, no gallops, no murmurs, no rubs ABDOMEN: Soft, nontender. No hepatosplenomegaly, normal bowel sounds, no guarding or rigidity. EXTREMITIES: No clubbing, no edema, no cyanosis, 2+ pulses and upper and lower extremities. MUSCULOSKELETAL: Muscle strength and tone normal. SPINE: No scoliosis or deformity SKIN: No rashes CENTRAL NERVOUS SYSTEM: No focal deficits, tone is normal in all 4 extremities. PSYCHIATRIC: Alert and oriented -3. Appropriate affect. Intact judgment and insight. - Labs CBC & Chem 7: 12/18/18 07:05 12/18/18 07:05 Labs: Abnormal Lab Results - Last 24 Hours (Table) 12/17/18 12/17/18 12/17/18 Range/Units 16:42 20:56 21:00 RBC (3.80-5.40) m/uL Hgb (11.4-16.0) gm/dL Hct (34.0-46.0) % Eosinophils # (0-0.7) k/uL BUN (7-17) mg/dL Creatinine (0.52-1.04) mg/dL Glucose (74-99) mg/dL POC Glucose (mg/dL) 145 H 178 H (75-99) mg/dL AST (14-36) U/L Total Protein (6.3-8.2) g/dL Albumin (3.5-5.0) g/dL Urine Protein Trace H (Negative) 12/18/18 12/18/18 12/18/18 Range/Units 06:33 07:05 07:05 RBC 3.02 L (3.80-5.40) m/uL Hgb 8.4 L (11.4-16.0) gm/dL Hct 26.2 L (34.0-46.0) % Eosinophils # 2.6 H (0-0.7) k/uL BUN 57 H (7-17) mg/dL Creatinine 2.92 H (0.52-1.04) mg/dL Glucose 112 H (74-99) mg/dL POC Glucose (mg/dL) 120 H (75-99) mg/dL AST 10 L (14-36) U/L Total Protein 6.1 L (6.3-8.2) g/dL Albumin 3.1 L (3.5-5.0) g/dL Urine Protein (Negative) Microbiology - Last 24 Hours (Table) 12/15/18 10:40 Blood Culture - Preliminary Blood No Growth after 72 hours Assessment and Plan Assessment: Assessment: #1. Shortness of breath related to acute exacerbation of congestive heart failure, diastolic in nature. On room air. #2. History of chronic bronchial asthma, mild intermittent, not currently active. #3. History of diabetes mellitus with peripheral neuropathy and retinopathy #4. GERD/Reflux #5. Hypertension, hyperlipidemia #6. Previous episode of pneumonia #7. History of chronic kidney disease, unspecified stage #8. Iron deficiency anemia #9. He of pancreatitis #10. History of gastric ulcer #11. Recurrent cephalgia #12. Vitamin D deficiency Plan: The patient was seen and evaluated by Dr. Blanc. She is improved from the pulmonary standpoint. Continue her current medications. Diuretics per cardiology. Increase her activity as tolerated. We'll continue to follow. I, the cosigning physician, performed a history & physical examination of the patient. Lungs sounds with faint crackles in the posterior bases. Maintaining good O2 saturations in the 90s on room air. I discussed the assessment and plan of care with my nurse practitioner, Preethi Magallon. I attest to the above note as dictated by her.
--- NOTE | 2018-12-18 13:38 | PN ---
PROGRESS NOTE CHIEF COMPLAINT: Congestive heart failure. HISTORY OF PRESENT ILLNESS: This lady is still wheezy and congested, but better. She feels very short of breath. She can ambulate a little bit further without difficulty. PHYSICAL EXAMINATION: She still has scattered rales and rhonchi with some wheezing on expiration. Cardiac exam is normal. Abdomen is soft and protuberant. IMPRESSION: 1. Acute congestive heart failure. 2. Chronic congestive heart failure. 3. Poorly-controlled diabetes. 4. Pneumonitis. PLAN: Repeat laboratory studies and chest x-ray and continue to increase and encourage activity. MMODL / IJN: [id number] /
--- NOTE | 2018-12-18 14:59 | PN ---
PROGRESS NOTE Patient is seen for followup for chronic kidney disease and acute kidney injury. She was admitted to the hospital with complaints of diarrhea, which has now resolved. She was weak and also found to be in volume overload for which patient is maintained on diuretics. She continues to have swelling of the lower extremities. However, she states she is feeling better. Serum creatinine has been slowly increasing. It is up to 2.9 from 2.17 on initial admission. However, previous creatinine has been at about 2.2 to 2.8 mg/dL. PHYSICAL EXAMINATION: On examination today, patient is comfortable. He is not in any acute distress. Blood pressure was low today at 98/69. However, in the morning it was 144/92, heart rate is 72 per minute. She is afebrile. Examination of the heart, S1, S2. Examination of the lungs, bilateral breath sounds are heard. Abdomen is soft, obese. Examination of the lower extremities shows edema 1+ bilaterally. WHEELCHAIR DRIVER exam is grossly intact. LABS: Sodium 143, potassium 4.1, BUN 57, serum creatinine 2.93, hemoglobin 8.4. ASSESSMENT: 1. Acute kidney injury, mainly cardiorenal. I will decrease the dose of Lasix. Her chest x-ray does not show any significant heart failure. However, patient does continue to have lower extremity edema. 2. Hypertension, partly volume sensitive, currently improved. I am not sure of this . MMODL / IJN: [id number] /
--- NOTE | 2018-12-18 15:05 | PN ---
PROGRESS NOTE Patient is seen for followup for acute kidney injury, which appears to be mainly cardiorenal. Patient was admitted with prior history of diarrhea, prior to admission. She has not had any further diarrhea. Overall, she states she is feeling better. She was also found to be in volume overload and is currently being diuresed. Serum creatinine is slowly edging up at 2.9 today from 2.17 on initial admission. Prior to admission, her serum creatinine has been anywhere from 1.8 to 2.2 mg/dL. Blood pressure is on the lower side today; however, previously it has not been low. PHYSICAL EXAMINATION: This morning blood pressure was 98/59, heart rate 80 per minute. She is afebrile. Examination of the heart S1, S2. Examination of the lungs, bilateral breath sounds are heard. Abdomen is soft, obese, nontender. Exam of the lower extremities shows edema 1+ bilaterally. CANCER CENTER DIRECTOR exam is grossly intact. LABS: Show sodium 140, potassium 4.1, BUN 57, serum creatinine 2.93, hemoglobin 8.4 g/dL. ASSESSMENT: 1. Acute kidney injury mainly cardiorenal. Serum creatinine has increased to 2.9. I will decrease IV Lasix. Chest .x-ray does not show any overt heart failure. UA was ordered, which is pretty benign. 2. 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 Baseline creatinine about 2. 3. Hypertension with chronic kidney disease, currently controlled. Blood pressure was low this morning. I am not sure if this is accurate. We will monitor before changing any medications. 4. Volume overload, improved since admission. Decrease the Lasix. PLAN: Decrease Lasix to 40 mg IV q.12 hours and institute p.o. Lasix. Following that repeat labs in a.m. Possible discharge tomorrow. MMODL / IJN: [id number] /
--- NOTE | 2018-12-18 16:52 | XR ---
EXAMINATION TYPE: XR chest 2V DATE OF EXAM: 12/18/2018 COMPARISON: Prior chest x-ray 12/17/2018 HISTORY: Congestive heart failure TECHNIQUE: Frontal and lateral views of the chest are obtained. FINDINGS: There is no pleural effusion or pneumothorax seen. Bandlike area of increased attenuation persists in the left upper lobe. Prominent lung volumes suggest underlying COPD. The cardiac silhouet te size is stable, enlarged. There are overlying cardiac leads. The osseous structures are intact. IMPRESSION: Findings are similar to prior exam. Possible left upper lobe pneumonia, atelectasis., Fo llow-up to resolution to exclude mass.
[2018-12-18 17:06] LABS: Glucose,Whole Blood 243 mg/dL (75-99)
[2018-12-18 20:54] LABS: Glucose,Whole Blood 211 mg/dL (75-99)
[2018-12-18] MEDS: FUROSEMIDE 10 MG/ML 4 ML VIAL IV SCH (21:38)
[2018-12-18] MEDS: INSULIN DETEMIR (LEVEMIR) 100 UNIT/ML SYR SQ SCH (21:39)
[2018-12-18] MEDS: traZODone HCL 100 MG TAB PO SCH (21:39)
[2018-12-19] MEDS: IPRATROPIUM-ALBUTEROL 3 ML NEB INHALATION PRN (03:20)
[2018-12-19 06:33] LABS: Glucose,Whole Blood 136 mg/dL (75-99)
[2018-12-19] MEDS: CARVEDILOL 12.5 MG TAB PO SCH ×2 (06:33→18:24)
[2018-12-19] MEDS: INSULIN ASPART (NovoLOG) 100 UNIT/ML VIAL SQ SCH ×7 (06:35→21:36)
[2018-12-19 07:07] LABS: HCT 26.6 % (34.0-46.0); HGB 8.4 gm/dL (11.4-16.0); MCH 27.3 pg (25.0-35.0); MCHC 31.7 g/dL (31.0-37.0); MCV 86.2 fL (80.0-100.0); Mean Platelet Volume 6.6; Platelet Count 234 k/uL (150-450); RBC 3.09 m/uL (3.80-5.40); RDW 15.3 % (11.5-15.5)
[2018-12-19 07:16] LABS: Albumin 3.3 g/dL (3.5-5.0); Potassium 3.9 mmol/L (3.5-5.1); Total Bilirubin 0.2 mg/dL (0.2-1.3); Total Protein 6.3 g/dL (6.3-8.2)
[2018-12-19 07:57] LABS: Eosinophils # (M) 1.56 k/uL (0-0.7); Lymphocytes # (M) 0.66 k/uL (1.0-4.8); Neutrophils # (M) 3.18 k/uL (1.3-7.7); Neutrophils % (M) 53 %; Nucleated Red Blood Cells 0 /100 WBC (0-0); Total Cells Counted 100
[2018-12-19] MEDS: IPRATROPIUM-ALBUTEROL 3 ML NEB INHALATION SCH ×4 (08:15→19:51)
[2018-12-19] MEDS: cloNIDine HCL 0.2 MG TAB PO SCH ×3 (09:26→21:37)
[2018-12-19] MEDS: CITALOPRAM HYDROBROMIDE 20 MG TAB PO SCH (09:26)
[2018-12-19] MEDS: LORATADINE 10 MG TAB PO SCH (09:26)
[2018-12-19] MEDS: ISOSORBIDE MONONITRATE ER 15 MG TAB PO SCH (09:26)
[2018-12-19] MEDS: hydrALAZINE HCL 25 MG TAB PO SCH ×2 (09:26→21:36)
[2018-12-19] MEDS: GABAPENTIN 300 MG CAP PO SCH ×3 (09:29→21:37)
[2018-12-19] MEDS: FUROSEMIDE 10 MG/ML 4 ML VIAL IV SCH ×2 (09:30→09:51)
[2018-12-19] MEDS ORDERED: FUROSEMIDE 40 MG TAB PO STA (09:50)
[2018-12-19 12:17] LABS: Glucose,Whole Blood 129 mg/dL (75-99)
--- NOTE | 2018-12-19 13:45 | CDI ---
Documentation Clarification Form Date: 12/19/2018 12:51:51 PM From: Natalia Villalta RN, CCDS Admit Date: 12/15/2018 12:38:00 PM Patient Name: Alexandra Taylor Visit Number: [id number] Discharge Date: ATTENTION: The Clinical Documentation Specialists (CDI) and [facility] Coding Staff appreciate your assistance in clarifying documentation. Please respond to the clarification below the line at the bottom and electronically sign. The CDI & [facility] Coding staff will review the response and follow-up if needed. Please note: Queries are made part of the Legal Health Record. If you have any questions, please contact the author of this message via ITS. Dr. Robbie Nieves The patient presented with diarrhea and shortness of breath. History/Risk Factors: Asthma, Diabetes mellitus, Hypertension Renal disease, Clinical Indicators: 53-year old female who complains of difficulty breathing, getting progressively worse. She's had some increased edema to her feet. Lungs have crackles in the left lung. On admission respiratory effort were noted as labored, shallow and had tachypnea. Vital signs: 140/85 85 25, 94 % 3/L NC 12/16/2018 progress notes: She is still having difficulty breathing. She has been diuresing, but she is still dyspneic, with your impression of acute respiratory failure. Treatment: Breathing tx: Duoneb's Inhalation PRN, Monitor O2 sat's (titrate) Lasix IV ( now change to PO) In your professional opinion, can you please clarify if these findings signify one of the following conditions? Acute Respiratory Failure With hypoxia? Acute Respiratory Failure with hypercapnia? Other Diagnosis, please specify Unable to determine (Last Revision: October 2017) MTDD
--- NOTE | 2018-12-19 14:00 | CT ---
EXAMINATION TYPE: CT chest wo con DATE OF EXAM: 12/19/2018 COMPARISON: Chest x-ray 12/18/2018 HISTORY: NICOLASA mass CT DLP: 791.8 mGycm. Automated Exposure Control for Dose Reduction was Utilized. TECHNIQUE: CT scan of the thorax is performed without IV contrast. FINDINGS: LUNGS: The lungs are remarkable for tree-in-bud densities in the left upper lobe and atelectasis in t he right lower lobe greater than left, minimal right pleural effusion. There is some minimal nodulari ty in axial image 27 of the left lung base, some probable atelectatic change in the lingula, no endob ronchial lesion evident, there are likely retained secretions however. Mediastinum: No mediastinal, axillary, hilar adenopathy. There are some mild coronary artery calcific ations. There are no definitive greater than 1 cm hilar or mediastinal lymph nodes. No cardiomegaly , there is small pericardial effusion. OTHER: Probable parapelvic cysts are noted within the kidneys, cortical cyst at the upper pole the le ft kidney and midpole the right kidney. IMPRESSION: Findings may represent bronchopneumonia, follow-up could be performed to assess resolutio n.
--- NOTE | 2018-12-19 14:38 | P.PN ---
Subjective Progress Note Date: 12/18/18 This pleasant 53-year-old female patient with history of hypertension, diabetes, chronic diarrhea, chronic renal failure, anemia and asthma. She apparently followed up with a physician from our office, likely Dr. Kenny after hospitalization in April at which time she had an echocardiogram that showed normal LV systolic function. She presented to the emergency department this admission with complaints of ongoing diarrhea as well as the development of significant shortness of breath, dyspnea on exertion, edema, weight gain and orthopnea. We were asked to see The patient in consultation for pulmonary edema and elevated troponin. Chest x-ray showed renomegaly and vascular congestion without wandy edema. Lab evaluation White blood cell count of 13,000, hemoglobin 8.8, BUN 36, creatinine 2.17 and NT proBNP of 13,300. Initial troponin was elevated at 0.054 with subsequent troponins of 0.029, 0.031 and 0.031. Upon examination, patient is resting comfortably in bed. She continues to complain of dyspnea on exertion, orthopnea and edema. She has been started on Rocephin and Zithromax. She has not had diarrhea today. 12/17/2018 Patient was seen and examined this morning, overall she does state that she's feeling somewhat better.blood pressure 120/60 with a heart rate in the 70s, 98% on recent oxygen. Sodium 142, potassium 4.1, BUN 51 and creatinine 2.7, magnesium 1.9 today.continues to have bilateral lower extremity edema. 12/18/2018 Patient was seen and examined this morning, very sleepy today overall. Continues to feel short of breath. White blood cell count 7.4, hemoglobin 8.4, platelet count 221. Sodium 143, potassium 4.1, BUN 57 and creatinine 2.9. Blood pressure 144/90 with a heart rate in the 70s, 98% on 2 L Objective - Vital Signs Vital signs: Vital Signs Temp 98.1 F 12/19/18 12:00 Pulse 76 12/19/18 12:11 Resp 18 12/19/18 12:00 BP 110/57 12/19/18 12:00 Pulse Ox 90 L 12/19/18 03:07 Intake & Output 12/18/18 12/19/18 12/19/18 18:59 06:59 18:59 Intake Total 568 220 650 Output Total 800 Balance 568 -580 650 Weight 115.2 kg Intake: Oral 568 220 650 Output: Urine 800 Other: Voiding Method Toilet Toilet # Voids 1 1 2 # Bowel Movements 1 0 - Exam PHYSICAL EXAMINATION: HEENT: Head is atraumatic, normocephalic. Pupils equal, round. Neck is supple. There is no elevated jugular venous pressure. HEART EXAMINATION: Heart sounds regular, S1 and S2 normal. No murmur or gallop heard. CHEST EXAMINATION: Lungs reveal expiratory wheezing throughout and crackles bilateral bases. No chest wall tenderness is noted on palpation or with deep breathing. ABDOMEN: Soft, obese, nontender. Bowel sounds are heard. No organomegaly noted. EXTREMITIES: 2+ peripheral pulses with evidence of mild peripheral edema and no calf tenderness noted. NEUROLOGIC patient is awake, alert and oriented x3. - Labs CBC & Chem 7: 12/19/18 06:32 12/19/18 06:32 Labs: Abnormal Lab Results - Last 24 Hours (Table) 12/18/18 12/18/18 12/19/18 Range/Units 17:02 20:51 06:20 RBC (3.80-5.40) m/uL Hgb (11.4-16.0) gm/dL Hct (34.0-46.0) % Lymphocytes # (Manual) (1.0-4.8) k/uL Eosinophils # (Manual) (0-0.7) k/uL BUN (7-17) mg/dL Creatinine (0.52-1.04) mg/dL Glucose (74-99) mg/dL POC Glucose (mg/dL) 243 H 211 H 136 H (75-99) mg/dL AST (14-36) U/L Albumin (3.5-5.0) g/dL 12/19/18 12/19/18 12/19/18 Range/Units 06:32 06:32 12:14 RBC 3.09 L (3.80-5.40) m/uL Hgb 8.4 L (11.4-16.0) gm/dL Hct 26.6 L (34.0-46.0) % Lymphocytes # (Manual) 0.66 L (1.0-4.8) k/uL Eosinophils # (Manual) 1.56 H (0-0.7) k/uL BUN 63 H (7-17) mg/dL Creatinine 3.16 H (0.52-1.04) mg/dL Glucose 129 H (74-99) mg/dL POC Glucose (mg/dL) 129 H (75-99) mg/dL AST 9 L (14-36) U/L Albumin 3.3 L (3.5-5.0) g/dL Microbiology - Last 24 Hours (Table) 12/15/18 10:40 Blood Culture - Preliminary Blood No Growth after 96 hours 12/16/18 12:54 Stool Culture - Preliminary Stool Assessment and Plan Plan: Assessment: #1 acute on chronic congestive heart failure, likely diastolic with most recent echocardiogram showing normal LV systolic function #2 chronic diarrhea #3 chronic renal failure #4 hypertension #5 diabetes plan From cardiology's perspective, we'll recommend to continue current dose of IV Lasix. DNP note has been reviewed, I agree with a documented findings and plan of care. Patient was seen and examined.
--- NOTE | 2018-12-19 14:41 | P.PN ---
Subjective Progress Note Date: 12/19/18 This pleasant 53-year-old female patient with history of hypertension, diabetes, chronic diarrhea, chronic renal failure, anemia and asthma. She apparently followed up with a physician from our office, likely Dr. Kenny after hospitalization in April at which time she had an echocardiogram that showed normal LV systolic function. She presented to the emergency department this admission with complaints of ongoing diarrhea as well as the development of significant shortness of breath, dyspnea on exertion, edema, weight gain and orthopnea. We were asked to see The patient in consultation for pulmonary edema and elevated troponin. Chest x-ray showed renomegaly and vascular congestion without wandy edema. Lab evaluation White blood cell count of 13,000, hemoglobin 8.8, BUN 36, creatinine 2.17 and NT proBNP of 13,300. Initial troponin was elevated at 0.054 with subsequent troponins of 0.029, 0.031 and 0.031. Upon examination, patient is resting comfortably in bed. She continues to complain of dyspnea on exertion, orthopnea and edema. She has been started on Rocephin and Zithromax. She has not had diarrhea today. 12/17/2018 Patient was seen and examined this morning, overall she does state that she's feeling somewhat better.blood pressure 120/60 with a heart rate in the 70s, 98% on recent oxygen. Sodium 142, potassium 4.1, BUN 51 and creatinine 2.7, magnesium 1.9 today.continues to have bilateral lower extremity edema. 12/18/2018 Patient was seen and examined this morning, very sleepy today overall. Continues to feel short of breath. White blood cell count 7.4, hemoglobin 8.4, platelet count 221. Sodium 143, potassium 4.1, BUN 57 and creatinine 2.9. Blood pressure 144/90 with a heart rate in the 70s, 98% on 2 L. 12/19/2018 Patient was seen and examined today, sitting up in the chair at bedside. Alert and oriented 3 and feeling great today. Edema is significantly down. Blood pressure 110/60 with a heart rate in the 70s, 97% on room air. White blood cell count 6.0, hemoglobin 8.4, platelet count 234. Sodium 141, potassium 3.9, BUN 63 and creatinine 3.1. BNP 1890. Objective - Vital Signs Vital signs: Vital Signs Temp 98.1 F 12/19/18 12:00 Pulse 76 12/19/18 12:11 Resp 18 12/19/18 12:00 BP 110/57 12/19/18 12:00 Pulse Ox 90 L 12/19/18 03:07 Intake & Output 12/18/18 12/19/18 12/19/18 18:59 06:59 18:59 Intake Total 568 220 650 Output Total 800 Balance 568 -580 650 Weight 115.2 kg Intake: Oral 568 220 650 Output: Urine 800 Other: Voiding Method Toilet Toilet # Voids 1 1 2 # Bowel Movements 1 0 - Exam PHYSICAL EXAMINATION: HEENT: Head is atraumatic, normocephalic. Pupils equal, round. Neck is supple. There is no elevated jugular venous pressure. HEART EXAMINATION: Heart sounds regular, S1 and S2 normal. No murmur or gallop heard. CHEST EXAMINATION: Lungs reveal expiratory wheezing throughout and crackles bilateral bases. No chest wall tenderness is noted on palpation or with deep breathing. ABDOMEN: Soft, obese, nontender. Bowel sounds are heard. No organomegaly noted. EXTREMITIES: 2+ peripheral pulses with evidence of mild peripheral edema and no calf tenderness noted. NEUROLOGIC patient is awake, alert and oriented x3. - Labs CBC & Chem 7: 12/19/18 06:32 12/19/18 06:32 Labs: Abnormal Lab Results - Last 24 Hours (Table) 12/18/18 12/18/18 12/19/18 Range/Units 17:02 20:51 06:20 RBC (3.80-5.40) m/uL Hgb (11.4-16.0) gm/dL Hct (34.0-46.0) % Lymphocytes # (Manual) (1.0-4.8) k/uL Eosinophils # (Manual) (0-0.7) k/uL BUN (7-17) mg/dL Creatinine (0.52-1.04) mg/dL Glucose (74-99) mg/dL POC Glucose (mg/dL) 243 H 211 H 136 H (75-99) mg/dL AST (14-36) U/L Albumin (3.5-5.0) g/dL 12/19/18 12/19/18 12/19/18 Range/Units 06:32 06:32 12:14 RBC 3.09 L (3.80-5.40) m/uL Hgb 8.4 L (11.4-16.0) gm/dL Hct 26.6 L (34.0-46.0) % Lymphocytes # (Manual) 0.66 L (1.0-4.8) k/uL Eosinophils # (Manual) 1.56 H (0-0.7) k/uL BUN 63 H (7-17) mg/dL Creatinine 3.16 H (0.52-1.04) mg/dL Glucose 129 H (74-99) mg/dL POC Glucose (mg/dL) 129 H (75-99) mg/dL AST 9 L (14-36) U/L Albumin 3.3 L (3.5-5.0) g/dL Microbiology - Last 24 Hours (Table) 12/15/18 10:40 Blood Culture - Preliminary Blood No Growth after 96 hours 12/16/18 12:54 Stool Culture - Preliminary Stool Assessment and Plan Plan: Assessment: #1 acute on chronic congestive heart failure, likely diastolic with most recent echocardiogram showing normal LV systolic function #2 chronic diarrhea #3 chronic renal failure #4 hypertension #5 diabetes plan IV Lasix has been discontinued and patient has been changed over to oral diuretics. Check lytes BUN and creatinine in the morning, plan for possible discharge home in 24 hours if stable. DNP note has been reviewed, I agree with a documented findings and plan of care. Patient was seen and examined.
--- NOTE | 2018-12-19 14:47 | P.PN ---
Subjective Progress Note Date: 12/19/18 Principal diagnosis: Shortness of breath, likely related to acute exacerbation of congestive heart failure 12/17/2018 patient seen in follow-up on selective care unit, she is sleeping comfortably in bed, in no acute distress, we did wake, and patient states that overall her breathing is improving, she is feeling somewhat better. Less signs are stable, she is at 98% on 3 L of oxygen, she is afebrile, hemodynamically stable. He is on IV diuretics, 80 mg every 12 hours, continue negative fluid balance, and lower extremity edema is improving, lung sounds reveal diminished b reath sounds at the bases, minimal wheezing, and bibasilar crackles. No chest wall tenderness, no hemoptysis. Fever or chills. Stool cultures are pending, so far no growth. And have been reviewed, BNP showed a sodium of 142, potassium is 4.1, chloride is 108, CO2 is 28, B1 is 51, creatinine is 2.79. No further episodes of diarrhea. Patient is being followed by gastroenterology, she did have a recent trip to [place], and the diarrhea is improved. Chest x-ray from this morning shows left upper lobe atelectasis or early infiltrate. On 12/19/2017 patient seen in follow-up on selective care unit, she sits up in the recliner, in no acute distress, she states she is breathing much easier, she is on room air, with pulse ox of 97%, no fever, no chills, hemodynamically stable, respirations are even and nonlabored. Lungs are essentially clear to auscultation, no rhonchi, wheezes or rales. Blood cultures show no growth since admission, stool culture negative thus far. Today's labs have been reviewed showing white blood cell, 6.0, hemoglobin of 8.4, electrodes were within normal limits, BUN is 63, creatinine is 3.16. ProBNP was 1890. Patient has been diuresed, lower extremity edema is improving, patient has been switched over to oral Lasix, currently on [address] chest has been ordered by attending physician, and reviewed, showing tree-in-bud densities in the left u pper lobe and atelectasis in the right lower lobe greater than the left, and minimal right pleural effusion. Objective - Vital Signs Vital signs: Vital Signs Temp 98.1 F 12/19/18 12:00 Pulse 76 12/19/18 12:11 Resp 18 12/19/18 12:00 BP 110/57 12/19/18 12:00 Pulse Ox 90 L 12/19/18 03:07 Intake & Output 12/18/18 12/19/18 12/19/18 18:59 06:59 18:59 Intake Total 568 220 650 Output Total 800 Balance 568 -580 650 Weight 115.2 kg Intake: Oral 568 220 650 Output: Urine 800 Other: Voiding Method Toilet Toilet # Voids 1 1 2 # Bowel Movements 1 0 - Exam GENERAL EXAM: Alert, pleasant,obese 53-year-old female on room air with pulse ox 98% comfortable in no apparent distress. HEAD: Normocephalic/atraumatic. EYES: Normal reaction of pupils, equal size. Conjunctiva pink, sclera white. NOSE: Clear with pink turbinates. THROAT: No erythema or exudates. NECK: No masses, no JVD, no thyroid enlargement, no adenopathy. CHEST: No chest wall deformity. Symmetrical expansion. LUNGS: Equal air entry with clear breath sounds, no rhonchi, no rales, no wheezes CVS: Regular rate and rhythm, normal S1 and S2, no gallops, no murmurs, no rubs ABDOMEN: Soft, nontender. No hepatosplenomegaly, normal bowel sounds, no guarding or rigidity. EXTREMITIES: No clubbing, no edema, no cyanosis, 2+ pulses and upper and lower extremities. MUSCULOSKELETAL: Muscle strength and tone normal. SPINE: No scoliosis or deformity SKIN: No rashes CENTRAL NERVOUS SYSTEM: Alert and oriented -3. No focal deficits, tone is normal in all 4 extremities. PSYCHIATRIC: Alert and oriented -3. Appropriate affect. Intact judgment and insight. - Labs CBC & Chem 7: 12/19/18 06:32 12/19/18 06:32 Labs: Abnormal Lab Results - Last 24 Hours (Table) 12/18/18 12/18/18 12/19/18 Range/Units 17:02 20:51 06:20 RBC (3.80-5.40) m/uL Hgb (11.4-16.0) gm/dL Hct (34.0-46.0) % Lymphocytes # (Manual) (1.0-4.8) k/uL Eosinophils # (Manual) (0-0.7) k/uL BUN (7-17) mg/dL Creatinine (0.52-1.04) mg/dL Glucose (74-99) mg/dL POC Glucose (mg/dL) 243 H 211 H 136 H (75-99) mg/dL AST (14-36) U/L Albumin (3.5-5.0) g/dL 12/19/18 12/19/18 12/19/18 Range/Units 06:32 06:32 12:14 RBC 3.09 L (3.80-5.40) m/uL Hgb 8.4 L (11.4-16.0) gm/dL Hct 26.6 L (34.0-46.0) % Lymphocytes # (Manual) 0.66 L (1.0-4.8) k/uL Eosinophils # (Manual) 1.56 H (0-0.7) k/uL BUN 63 H (7-17) mg/dL Creatinine 3.16 H (0.52-1.04) mg/dL Glucose 129 H (74-99) mg/dL POC Glucose (mg/dL) 129 H (75-99) mg/dL AST 9 L (14-36) U/L Albumin 3.3 L (3.5-5.0) g/dL Microbiology - Last 24 Hours (Table) 12/15/18 10:40 Blood Culture - Preliminary Blood No Growth after 96 hours 12/16/18 12:54 Stool Culture - Preliminary Stool Assessment and Plan Plan: Assessment: #1. Shortness of breath related to acute exacerbation of congestive heart failure, likely diastolic in nature #2. History of chronic bronchial asthma, mild intermittent, not currently active. #3. History of diabetes mellitus with peripheral neuropathy and retinopathy #4. GERD/Reflux #5. Hypertension, hyperlipidemia #6. Previous episode of pneumonia #7. History of chronic kidney disease, unspecified stage #8. Iron deficiency anemia #9. He of pancreatitis #10. History of gastric ulcer #11. Recurrent cephalgia #12. Vitamin D deficiency Plan: CT chest has been reviewed showing some tree-in-bud densities in the left upper lobe, and atelectasis in the right lower lobe, atelectatic change in the lingula, no endobronchial lesions, no mediastinal axillary or hilar adenopathy. From pulmonary perspective patient is stable, she has been diuresed, breathing easier. Assessment stable, no fever or chills, stable for discharge home today. I performed a history & physical examination of the patient and discussed their management with my nurse practitioner, Jessi Rinaldi. I reviewed the nurse practitioner's note and agree with the documented findings and plan of care. Lung sounds are positive for basilar crackles. The findings and the impression was discussed with the patient. I attest to the documentation by the nurse practitioner. Time with Patient: Less than 30
[2018-12-19] MEDS: FUROSEMIDE 40 MG TAB PO SCH (15:37)
[2018-12-19 17:30] LABS: Glucose,Whole Blood 171 mg/dL (75-99)
--- NOTE | 2018-12-19 19:41 | PN ---
PROGRESS NOTE CHIEF COMPLAINT: Difficulty breathing, congestive heart failure. HISTORY OF PRESENT ILLNESS: This lady is doing reasonably well, but she is still having some shortness of breath with exertion. Her creatinine is also rising. Blood sugars are under better control. PHYSICAL EXAMINATION: Her cardiac exam is unremarkable and she does have occasional scattered rales and rhonchi with a prolonged expiratory phase and some wheezing heard on both sides. Cardiac exam is normal. The abdomen is soft. IMPRESSION: 1. Congestive heart failure. 2. Uncontrolled diabetes mellitus. 3. Renal failure, progressing. PLAN: Continue with efforts to control her diabetes and congestive heart failure without leading to further deterioration of her renal function. MMODL / IJN: [id number] /
[2018-12-19 20:41] LABS: Glucose,Whole Blood 153 mg/dL (75-99)
[2018-12-19] MEDS: INSULIN DETEMIR (LEVEMIR) 100 UNIT/ML SYR SQ SCH (21:37)
[2018-12-19] MEDS: ACETAMINOPHEN TAB 325 MG TAB PO PRN (21:37)
[2018-12-19] MEDS: traZODone HCL 100 MG TAB PO SCH (21:37)
--- NOTE | 2018-12-19 22:58 | PN ---
PROGRESS NOTE Patient is seen for followup for acute kidney injury on top of chronic kidney disease. She is noted to have an increase in her creatinine during this hospitalization from 2.17 to 3.1 today. The patient has been maintained on Lasix for volume overload. Blood pressure was low at one time yesterday. However, most of her readings have been fair. Patient states overall she is feeling better. Her chest x-ray from yesterday did not show any overt heart failure. Therefore the diuretics were decreased. Patient has had good urine output; however, it is not accurately measured. She is not on any nephrotoxic medications at this time. On examination this morning, blood pressure was 150/67, heart rate 72 per minute. She is afebrile. EXAMINATION OF THE HEART: S1 and S2. EXAMINATION OF LUNGS: Bilateral breath sounds are heard. ABDOMEN: Soft, non-tender, obese. Examination of lower extremities shows 1+ edema bilaterally. DISTRIBUTION ACCOUNTING CLERK exam is grossly intact. Labs show sodium 141, potassium 3.9, chloride 104, BUN 63, serum creatinine 3.16, hemoglobin 8.4 g/dL. ASSESSMENT: 1. Acute kidney injury, mainly cardiorenal. Serum creatinine has been worsening. Patient was maintained on IV diuretics. I have switched her to p.o. today. She does have evidence of lower extremity edema. However, chest x-ray does not show overt heart failure. 2. Volume overload, currently improved. 3. Chronic kidney disease, stage IV, secondary to diabetic kidney disease and cardiorenal syndrome. Baseline creatinine about 2 mg/dL. 4. Hypertension, currently controlled. We had one low blood pressure reading yesterday. However, most of her readings have been fair today. PLAN: Decrease Lasix. Repeat labs in a.m. Possible discharge by tomorrow. Maintain patient on low-salt diet post discharge. She will need to follow up for CKD as outpatient. MMODL / IJN: [id number] /
[2018-12-20] MEDS: IPRATROPIUM-ALBUTEROL 3 ML NEB INHALATION PRN (03:04)
[2018-12-20 06:29] LABS: Glucose,Whole Blood 68 mg/dL (75-99)
[2018-12-20] MEDS: INSULIN ASPART (NovoLOG) 100 UNIT/ML VIAL SQ SCH ×4 (06:30→12:26)
[2018-12-20] MEDS: CARVEDILOL 12.5 MG TAB PO SCH (06:32)
[2018-12-20 06:45] LABS: Glucose,Whole Blood 71 mg/dL (75-99)
[2018-12-20] MEDS: LORATADINE 10 MG TAB PO SCH (08:04)
[2018-12-20] MEDS: cloNIDine HCL 0.2 MG TAB PO SCH (08:04)
[2018-12-20] MEDS: ACETAMINOPHEN TAB 325 MG TAB PO PRN (08:04)
[2018-12-20] MEDS: FUROSEMIDE 40 MG TAB PO SCH (08:04)
[2018-12-20] MEDS: CITALOPRAM HYDROBROMIDE 20 MG TAB PO SCH (08:04)
[2018-12-20] MEDS: GABAPENTIN 300 MG CAP PO SCH (08:04)
[2018-12-20] MEDS: ISOSORBIDE MONONITRATE ER 15 MG TAB PO SCH (08:04)
[2018-12-20] MEDS: hydrALAZINE HCL 25 MG TAB PO SCH (08:04)
[2018-12-20] MEDS: IPRATROPIUM-ALBUTEROL 3 ML NEB INHALATION SCH ×2 (08:40→12:08)
[2018-12-20 12:18] LABS: Glucose,Whole Blood 139 mg/dL (75-99)
[2018-12-20 13:30] VITALS: BP 123/55; PULSE 67; RESP 18; TEMP 97.7
[2018-12-20 13:56] LABS: Calcium 9.1 mg/dL (8.4-10.2); Potassium 4.3 mmol/L (3.5-5.1)
--- NOTE | 2018-12-20 14:13 | PN ---
PROGRESS NOTE Patient is seen for followup for chronic kidney disease and acute kidney injury. Her creatinine was up to 3.1 yesterday. We do not have labs from today. Patient is maintained on oral Lasix and hydralazine was decreased as blood pressure was staying on the lower side. He has had good urine output. PHYSICAL EXAMINATION: Blood pressure was 133/71 this morning. Heart rate 71 per minute. She is afebrile. Examination of the heart, S1, S2. Examination of the lungs, bilateral breath sounds are heard. Abdomen is soft, obese, nontender. Examination of the lower extremities shows edema 1+ bilaterally. RENTAL REPRESENTATIVE exam is grossly intact. LABS: Not available from today. ASSESSMENT: 1. Acute kidney injury, mainly cardiorenal. Check labs today. Hydralazine was decreased. Continue with oral Lasix for now, which was switched over yesterday. 2. Volume overload, now improved. 3. Chronic kidney disease stage IV secondary to diabetic kidney disease and cardiorenal syndrome based on creatinine about 2. 4. Hypertension, currently controlled. Continue with lower dose of antihypertensive medications. PLAN: Patient will need followup as outpatient for CKD. I will check a set of labs today prior to discharge. He should continue with the Lasix at 40 mg b.i.d. for now. MMODL / IJN: [id number] /
--- NOTE | 2018-12-20 14:40 | P.PN ---
Subjective Progress Note Date: 12/20/18 This pleasant 53-year-old female patient with history of hypertension, diabetes, chronic diarrhea, chronic renal failure, anemia and asthma. She apparently followed up with a physician from our office, likely Dr. Kenny after hospitalization in April at which time she had an echocardiogram that showed normal LV systolic function. She presented to the emergency department this admission with complaints of ongoing diarrhea as well as the development of significant shortness of breath, dyspnea on exertion, edema, weight gain and orthopnea. We were asked to see The patient in consultation for pulmonary edema and elevated troponin. Chest x-ray showed renomegaly and vascular congestion without wandy edema. Lab evaluation White blood cell count of 13,000, hemoglobin 8.8, BUN 36, creatinine 2.17 and NT proBNP of 13,300. Initial troponin was elevated at 0.054 with subsequent troponins of 0.029, 0.031 and 0.031. Upon examination, patient is resting comfortably in bed. She continues to complain of dyspnea on exertion, orthopnea and edema. She has been started on Rocephin and Zithromax. She has not had diarrhea today. 12/17/2018 Patient was seen and examined this morning, overall she does state that she's feeling somewhat better.blood pressure 120/60 with a heart rate in the 70s, 98% on recent oxygen. Sodium 142, potassium 4.1, BUN 51 and creatinine 2.7, magnesium 1.9 today.continues to have bilateral lower extremity edema. 12/18/2018 Patient was seen and examined this morning, very sleepy today overall. Continues to feel short of breath. White blood cell count 7.4, hemoglobin 8.4, platelet count 221. Sodium 143, potassium 4.1, BUN 57 and creatinine 2.9. Blood pressure 144/90 with a heart rate in the 70s, 98% on 2 L. 12/19/2018 Patient was seen and examined today, sitting up in the chair at bedside. Alert and oriented 3 and feeling great today. Edema is significantly down. Blood pressure 110/60 with a heart rate in the 70s, 97% on room air. White blood cell count 6.0, hemoglobin 8.4, platelet count 234. Sodium 141, potassium 3.9, BUN 63 and creatinine 3.1. BNP 1890. 12/20/2018 Patient seen and examined this morning, feels great, anticipating discharge home. Objective - Vital Signs Vital signs: Vital Signs Temp 97.7 F 12/20/18 12:00 Pulse 68 12/20/18 12:20 Resp 18 12/20/18 12:00 BP 123/55 12/20/18 12:00 Pulse Ox 92 L 12/20/18 12:00 Intake & Output 12/19/18 12/20/18 12/20/18 18:59 06:59 18:59 Intake Total 650 400 480 Balance 650 400 480 Weight 115.4 kg Intake: Oral 650 400 480 Other: Voiding Method Toilet Toilet Toilet # Voids 2 1 1 - Exam PHYSICAL EXAMINATION: HEENT: Head is atraumatic, normocephalic. Pupils equal, round. Neck is supple. There is no elevated jugular venous pressure. HEART EXAMINATION: Heart sounds regular, S1 and S2 normal. No murmur or gallop heard. CHEST EXAMINATION: Lungs reveal expiratory wheezing throughout and crackles bilateral bases. No chest wall tenderness is noted on palpation or with deep breathing. ABDOMEN: Soft, obese, nontender. Bowel sounds are heard. No organomegaly noted. EXTREMITIES: 2+ peripheral pulses with evidence of mild peripheral edema and no calf tenderness noted. NEUROLOGIC patient is awake, alert and oriented x3. - Labs CBC & Chem 7: 12/19/18 06:32 12/20/18 13:19 Labs: Abnormal Lab Results - Last 24 Hours (Table) 12/19/18 12/19/18 12/20/18 Range/Units 17:05 20:40 06:27 BUN (7-17) mg/dL Creatinine (0.52-1.04) mg/dL Glucose (74-99) mg/dL POC Glucose (mg/dL) 171 H 153 H 68 L (75-99) mg/dL 12/20/18 12/20/18 12/20/18 Range/Units 06:44 12:16 13:19 BUN 65 H (7-17) mg/dL Creatinine 2.61 H (0.52-1.04) mg/dL Glucose 172 H (74-99) mg/dL POC Glucose (mg/dL) 71 L 139 H (75-99) mg/dL Microbiology - Last 24 Hours (Table) 12/15/18 10:40 Blood Culture - Preliminary Blood No Growth after 120 hours 12/16/18 12:54 Stool Culture - Final Stool Assessment and Plan Plan: Assessment: #1 acute on chronic congestive heart failure, likely diastolic with most recent echocardiogram showing normal LV systolic function #2 chronic diarrhea #3 chronic renal failure #4 hypertension #5 diabetes plan cardiology's perspective, patient may be able to be discharged home. We will make a follow-up appointment with Dr. Weeks in the office post discharge. DNP note has been reviewed, I agree with a documented findings and plan of care. Patient was seen and examined.
--- NOTE | 2018-12-20 20:13 | DS ---
DISCHARGE SUMMARY CHIEF COMPLAINT: Pneumonia, difficulty breathing and acute renal failure. HISTORY OF PRESENT ILLNESS AND PHYSICAL EXAMINATION: Details of this lady's history and physical can be found in the initial workup. LABORATORY STUDIES: While she was in the hospital she had laboratory studies, details of which can be found in the laboratory section of her chart. COURSE IN THE HOSPITAL: After admission she was placed on bedrest, started on intravenous fluids, and started on diuretics with management of heart failure. Blood sugars were brought under better control. She continued to have significant wheezing and shortness of breath, but slowly this began to improve. Her renal function also began to improve. She was seen and followed by Nephrology. Finally, she was up and about and less short of breath, and it was felt that she could be safely sent home on 12/20. She will follow up in the office in several days. FINAL DIAGNOSES: 1. Acute congestive heart failure. 2. Chronic congestive heart failure (diastolic). 3. Acute on chronic renal failure. 4. Cardiorenal syndrome. 5. Poorly controlled insulin-dependent diabetes mellitus. OPERATIONS: None. CONSULTATIONS: 1. Cardiology. 2. Nephrology. She is improved. MMODL / IJN: [id number] /
--- NOTE | 2019-01-04 12:10 | MISC ---
MISCELLANOUS REPORT QUERY In professional opinion, other diagnoses, chronic obstructive pulmonary disease, reactive airway disease and congestive heart failure. MMODL / IJN: [id number] /
--- NOTE | 2019-01-04 12:10 | MISC ---
MISCELLANOUS REPORT CLARIFY FINDINGS: OTHER DIAGNOSIS: Any other diagnosis would be congestive heart failure. MMODL / IJN: [id number] /
== END 2018-12-20 14:33 | disposition home health service (06) | DRG 291 ==
LOC: EC 09:47 → 3SCARD 12:38
PROVIDERS: ADMIT Family Medicine; ATTEND Family Medicine
DX: I13.0 Hypertensive heart and chronic kidney disease with heart failure and stage 1 through stage 4 chronic kidney disease, or unspecified chronic kidney disease (principal); I50.33 Acute on chronic diastolic (congestive) heart failure; J18.9 Pneumonia, unspecified organism; A09 Infectious gastroenteritis and colitis, unspecified; J98.11 Atelectasis; L03.211 Cellulitis of face; N17.9 Acute kidney failure, unspecified; N18.4 Chronic kidney disease, stage 4 (severe); Z68.42 Body mass index [BMI] 45.0-49.9, adult; E11.22 Type 2 diabetes mellitus with diabetic chronic kidney disease; E11.42 Type 2 diabetes mellitus with diabetic polyneuropathy; E11.65 Type 2 diabetes mellitus with hyperglycemia; E55.9 Vitamin D deficiency, unspecified; D50.9 Iron deficiency anemia, unspecified; E66.9 Obesity, unspecified; E78.5 Hyperlipidemia, unspecified; G43.909 Migraine, unspecified, not intractable, without status migrainosus; H54.62 Unqualified visual loss, left eye, normal vision right eye; J45.20 Mild intermittent asthma, uncomplicated; K21.9 Gastro-esophageal reflux disease without esophagitis; T50.2X5A Adverse effect of carbonic-anhydrase inhibitors, benzothiadiazides and other diuretics, initial encounter; F41.9 Anxiety disorder, unspecified; K44.9 Diaphragmatic hernia without obstruction or gangrene; R03.1 Nonspecific low blood-pressure reading; R77.9 Abnormality of plasma protein, unspecified; Z79.4 Long term (current) use of insulin; Z79.899 Other long term (current) drug therapy; Z87.11 Personal history of peptic ulcer disease; Z87.01 Personal history of pneumonia (recurrent); Z86.14 Personal history of Methicillin resistant Staphylococcus aureus infection; Z88.5 Allergy status to narcotic agent; Z88.0 Allergy status to penicillin; Z91.013 Allergy to seafood; Z88.2 Allergy status to sulfonamides; Z88.7 Allergy status to serum and vaccine; Z91.048 Other nonmedicinal substance allergy status; Z98.42 Cataract extraction status, left eye; Z96.1 Presence of intraocular lens; Z82.49 Family history of ischemic heart disease and other diseases of the circulatory system; Z83.3 Family history of diabetes mellitus; Z80.9 Family history of malignant neoplasm, unspecified
CPT/HCPCS: 36415; 71046; 71250; 80048; 80053; 81003; 83605; 83630; 83735; 83880; 84484; 85025; 85379; 85610; 85730; 86850; 86900; 86901; 87040; 87045; 87046; 87328; 87329; 93005; 93306; 94640; 96365; 96367; 96375; 99285

== ENCOUNTER → 2019-02-01 | Outpatient (CLI) | payer BC, MEDICARE ==
[2019-02-01 10:02] LABS: Basophils # (A) 0.1 k/uL (0-0.2); Basophils % (A) 1 %; Eosinophils # (A) 2.7 k/uL (0-0.7); Eosinophils % (A) 29 %; HCT 31.6 % (34.0-46.0); HGB 10.3 gm/dL (11.4-16.0); Lymphocytes # (A) 1.1 k/uL (1.0-4.8); Lymphocytes % (A) 12 %; MCH 27.9 pg (25.0-35.0); MCHC 32.4 g/dL (31.0-37.0); MCV 86.1 fL (80.0-100.0); Mean Platelet Volume 6.3; Monocytes # (A) 0.4 k/uL (0-1.0); Monocytes % (A) 4 %; Neutrophils # (A) 4.9 k/uL (1.3-7.7); Neutrophils % (A) 52 %; Platelet Count 292 k/uL (150-450); RBC 3.68 m/uL (3.80-5.40); RDW 15.2 % (11.5-15.5); WBC 9.3 k/uL (3.8-10.6)
[2019-02-01 17:17] LABS: African American GFR (CKD) 24.8 (60.0-200.0); Albumin 4.3 g/dL (3.80-4.90); Albumin/Globulin Ratio 1.87 (1.60-3.17); Anion Gap 11.6 mmol/L (4.00-12.00); BUN/Creat Ratio 22.4 Ratio (12.00-20.00); Carbon Dioxide 24.4 mmol/L (21.6-31.8); Globulin 2.3 g/dL (1.6-3.3); Potassium 4.4 mmol/L (3.5-5.5); Total Bilirubin 0.2 mg/dL (0.2-1.2); Total Protein 6.6 g/dL (6.2-8.2)
== END | disposition home or self-care (01) ==
LOC: LABWHC1 08:40
PROVIDERS: ATTEND Family Medicine
DX: I50.33 Acute on chronic diastolic (congestive) heart failure (principal); I12.9 Hypertensive chronic kidney disease with stage 1 through stage 4 chronic kidney disease, or unspecified chronic kidney disease; K85.90 Acute pancreatitis without necrosis or infection, unspecified
CPT/HCPCS: 36415; 80053; 83880; 85025

== ENCOUNTER → 2019-02-01 | Outpatient (CLI) | payer BC, MEDICARE | END | disposition home or self-care (01) | LOC: LABWHC1 08:43 | PROVIDERS: ATTEND Internal Medicine Interventional Cardiology | DX: Z53.9 Procedure and treatment not carried out, unspecified reason (principal) ==

== ENCOUNTER 2019-02-12 07:34 | Day surgery (SDC) | payer BC, MEDICARE ==
[2019-02-06 14:54] VITALS: BMI 44.8
[2019-02-12] MEDS ORDERED: SODIUM CHLORIDE 0.9% 1,000 ML in EMPTY BAG 1 BAG IV ONE (08:01)
[2019-02-12] MEDS ORDERED: ALPRAZolam 0.25 MG TAB PO PRN (08:01)
[2019-02-12] MEDS ORDERED: NITROGLYCERIN SL TABS 0.4 MG TAB SUBLINGUAL PRN (08:01)
[2019-02-12] MEDS ORDERED: ALPRAZolam 0.5 MG TAB PO PRN (08:01)
[2019-02-12] MEDS ORDERED: ASPIRIN 325 MG TAB PO STA (08:04)
[2019-02-12] MEDS ORDERED: ATORVASTATIN 80 MG TAB PO STA (08:04)
[2019-02-12 08:31] LABS: Glucose,Whole Blood 83 mg/dL (75-99)
[2019-02-12 08:36] VITALS: TEMP 97.8
[2019-02-12] MEDS ORDERED: MIDAZOLAM (PF) 2 MG/2 ML VIAL IV ONE (10:59)
[2019-02-12] MEDS ORDERED: hydrALAZINE HCL 20 MG/ML 1 ML VIAL IV ONE (11:03)
[2019-02-12] MEDS ORDERED: LIDOCAINE 1% INJ 10MG/ML (20 ML MDV) SQ ONE (11:06)
[2019-02-12] MEDS ORDERED: VERAPAMIL SYRINGE (5 MG/10 ML) INTRAARTER ONE (11:09)
[2019-02-12] MEDS ORDERED: IOPAMIDOL-370 125ML BTL INJ ONE (11:17)
[2019-02-12] MEDS ORDERED: RX INFO: IV CONTRAST WAS GIVEN 1 EACH MISC MISCELLANE PRN (11:23)
[2019-02-12] MEDS ORDERED: SODIUM CHLORIDE 0.9% 1,000 ML IV SCH (11:30)
--- NOTE | 2019-02-12 11:45 | CC ---
CARDIAC CATHETERIZATION REPORT DATE OF SERVICE: 02/12/2019 PERFORMING PHYSICIAN: Arun Kenny MD, [employer]ling Ball Mold Assembler. PROCEDURE PERFORMED: 1. Selective right and left coronary angiogram. 2. Left heart catheterization. INDICATION: This is a very pleasant 54-year-old female patient with chronic kidney disease, hypertension, and dyslipidemia, continues to have shortness of breath with exertion. She underwent myocardial perfusion imaging stress test, but that came into be technically very difficult, but there was a concern about severe coronary artery disease and because of that, a heart catheterization was advised. APPROACH: Right radial artery. COMPLICATION: None. LEVEL OF SEDATION: Moderate with sedation length of 13 minutes. PROCEDURE DESCRIPTION: After obtaining an informed consent, the patient was brought to the cardiac cathead operator. The right radial artery was cannulated using micropuncture technique, and I placed a 5- Greek sheath. After that, I gave the patient 2 mg of verapamil IA and 10,000 units of heparin IV. Selective right and left coronary angiogram were performed using JR4 and JL3.5 catheters. Left heart catheterization was performed using 5-Greek pigtail catheter. The procedure was completed without any complication. SELECTIVE CORONARY ANGIOGRAM: 1. The right coronary artery is a large caliber vessel. It is a dominant vessel and appeared to be angiographically normal. Distally bifurcates into PDA and PLV branches, both appeared to be angiographically normal. 2. The left main is angiographically normal. It bifurcates into left circumflex and left anterior descending artery. 3. The left circumflex is a large caliber vessel. It is a nondominant vessel. The proximal circumflex appeared to be normal, the mid circumflex is normal and gives rise into a tortuous OM branch which seems to be angiographically normal. The circumflex after that has a lesion, appeared to be in the range of 50%. 4. The LAD, the proximal LAD appeared to be angiographically normal. It gives rise into a large diagonal branch which seems to be angiographically normal. The mid LAD has a tubular lesion, appeared to be diseased up to about 50% to 60%. This is by the bifurcation of second diagonal branch which appeared to have mild disease only. The LAD distally appeared to be angiographically normal. HEMODYNAMICS: The left ventricular end-diastolic pressure was 12-18 mmHg without significant gradient across the aortic valve. CONCLUSION: Intermediate to severe disease involving the mid left circumflex and mid left anterior descending artery. POSTPROCEDURE MANAGEMENT: 1. Aggressive cholesterol control. 2. Risk factors modifications. 3. Follow up with the patient. TAMRA / IJN: [id number] /
[2019-02-12 11:48] LABS: Glucose,Whole Blood 70 mg/dL (75-99)
[2019-02-12 15:16] VITALS: RESP 16
[2019-02-12 17:45] VITALS: BP 134/60; PULSE 70
== END 2019-02-12 17:20 | disposition home or self-care (01) ==
LOC: CATHCVL 07:34
PROVIDERS: ATTEND Internal Medicine Interventional Cardiology
DX: I25.10 Atherosclerotic heart disease of native coronary artery without angina pectoris (principal); E11.22 Type 2 diabetes mellitus with diabetic chronic kidney disease; E66.9 Obesity, unspecified; Z68.41 Body mass index [BMI] 40.0-44.9, adult; I13.0 Hypertensive heart and chronic kidney disease with heart failure and stage 1 through stage 4 chronic kidney disease, or unspecified chronic kidney disease; I50.32 Chronic diastolic (congestive) heart failure; N18.9 Chronic kidney disease, unspecified; Z79.4 Long term (current) use of insulin; Z79.51 Long term (current) use of inhaled steroids; Z79.52 Long term (current) use of systemic steroids; Z79.899 Other long term (current) drug therapy; Z82.49 Family history of ischemic heart disease and other diseases of the circulatory system
CPT/HCPCS: 93458; C1769 ×2; C1894; J0360; J2001; J1644; Q9967; J2250

== ENCOUNTER 2019-09-29 12:32 | Emergency (ER) | payer BC, MEDICARE ==
[2019-09-29 12:48] VITALS: BP 146/89; PULSE 72; RESP 18; TEMP 97.8
[2019-09-29] MEDS ORDERED: LIDOCAINE 1% INJ 10MG/ML (20 ML MDV) SQ ONE (13:10)
--- NOTE | 2019-09-29 13:19 | ED ---
URI HPI - General Chief Complaint: Upper Respiratory Infection Stated Complaint: toe pain, SOB Time Seen by Provider: 09/29/19 12:50 Source: patient, RN notes reviewed, old records reviewed Mode of arrival: ambulatory Limitations: no limitations - History of Present Illness Initial Comments: His is a 54-year-old female who presents today with cough congestion that started with a sinus infection last week. She also presents today with complaints of infection over her right great toe. She's had an infected great toenail and thought she removed the entire toenail but believes she still has retained piece of nail within the tissue. - Related Data Home Medications Medication Instructions Recorded Confirmed Citalopram Hydrobromide [CeleXA] 40 mg PO HS 02/25/17 02/12/19 Gabapentin 600 mg PO BID 02/25/17 02/12/19 Fluticasone Nasal [place] [Flonase 1 - 2 spray EA NOSTRIL HS PRN 08/15/17 02/12/19 Nasal [place]] Albuterol Nebulized [Ventolin 2.5 mg INHALATION RT-QID PRN 11/14/17 02/12/19 Nebulized] Cetirizine HCl [Zyrtec] 10 mg PO DAILY 11/14/17 02/12/19 Gemfibrozil [Lopid] 600 mg PO BID 11/14/17 02/12/19 ALPRAZolam [Xanax] 0.5 mg PO DAILY PRN 10/16/18 02/12/19 Carvedilol [Coreg] 25 mg PO BID 10/16/18 02/12/19 traZODone HCL [Desyrel] 100 mg PO HS PRN 10/16/18 02/12/19 Albuterol Inhaler [Ventolin Hfa 1 - 2 puff INHALATION RT-Q6H PRN 02/06/19 02/12/19 Inhaler] Chlorthalidone [Hygroton] 25 mg PO DAILY 02/06/19 02/12/19 Ergocalciferol (Vitamin D2) 50,000 unit PO Q30D 02/06/19 02/12/19 [Vitamin D2] Fluticasone/Umeclidin/Vilanter 1 inhalation INHALATION DAILY 02/06/19 02/12/19 [Trelegy Ellipta 100-62.5-25] Furosemide [Lasix] 20 mg PO BID 02/06/19 02/12/19 INSULIN ASPART (NovoLOG) [NovoLOG 20 unit SQ TID-W/MEALS 02/06/19 02/12/19 (formulary)] Insulin Detemir (Levemir) [Levemir] 60 unit SQ HS 02/06/19 02/12/19 Montelukast Sodium [Singulair] 10 mg PO HS 02/06/19 02/12/19 Ranitidine HCl 150 mg PO BID 02/06/19 02/12/19 Previous Rx's Medication Instructions Recorded cloNIDine HCL [Catapres] 0.2 mg PO TID #90 tab 11/20/17 Isosorbide Mononitrate ER [Imdur] 15 mg PO DAILY #30 dose 12/20/18 hydrALAZINE HCL [Apresoline] 25 mg PO BID #60 tab 12/20/18 Doxycycline [Vibramycin] 100 mg PO BID 7 Days #14 capsule 09/29/19 Allergies Allergy/AdvReac Type Severity Reaction Status Date / Time adhesive tape Allergy Itching/swe Verified 09/29/19 12:48 lling hydrocodone [From [place]] Allergy Hallucinati Verified 09/29/19 12:48 ons/vomitin g measles, mumps, and rubella Allergy Rash/Hives Verified 09/29/19 12:48 vaccine Penicillins Allergy Anaphylaxis Verified 09/29/19 12:48 shellfish derived [Shrimp] Allergy Rash/Hives Verified 09/29/19 12:48 Sulfa (Sulfonamide Allergy Anaphylaxis Verified 09/29/19 12:48 Antibiotics) cephalexin [From Keflex] AdvReac Unknown Verified 09/29/19 12:48 Childhood Review of Systems ROS Statement: Those systems with pertinent positive or pertinent negative responses have been documented in the HPI. ROS Other: All systems not noted in ROS Statement are negative. 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 History of Any Multi-Drug Resistant Organisms: MRSA Date of last positivie culture/infection: 04/19/18 MDRO Source:: face Past Surgical History: Section, Uterine Ablation Additional Past Surgical History / Comment(s): C/S x 4, cyst removed from forehead, EGD, left cataract with lens implant then retinal surgery d/t detachment, Lt cheek abscesses incision and drainages. Past Anesthesia/Blood Transfusion Reactions: Motion Sickness, Postoperative Nausea & Vomiting (PONV) Past Psychological History: Anxiety Smoking Status: Never smoker Past Alcohol Use History: Occasional Past Drug Use History: None Reported - Past Family History Father Family Medical History: Cancer Additional Family Medical History / Comment(s): cancerous polyp Mother Family Medical History: Hypertension Additional Family Medical History / Comment(s): Mother had irregular heartbeat and boarderline diabetes. General Exam - General Exam Comments Initial Comments: 54-year-old female, no distress. Limitations: no limitations General appearance: alert, in no apparent distress Head exam: Present: atraumatic, normocephalic, normal inspection Eye exam: Present: normal appearance, PERRL, EOMI. Absent: scleral icterus, conjunctival injection, periorbital swelling ENT exam: Present: normal exam, mucous membranes moist, other (bilateral maxillary sinus tenderness) Neck exam: Present: normal inspection. Absent: tenderness, meningismus, lymphadenopathy Respiratory exam: Present: normal lung sounds bilaterally, other (minimal cough). Absent: respiratory distress, wheezes, rales, rhonchi, stridor Cardiovascular Exam: Present: regular rate, normal rhythm, normal heart sounds. Absent: systolic murmur, diastolic murmur, rubs, gallop, clicks GI/Abdominal exam: Present: soft, normal bowel sounds. Absent: distended, tenderness, guarding, rebound, rigid Extremities exam: Present: normal inspection, full ROM, normal capillary refill, other (right ingrown toenail on first toe). Absent: tenderness, pedal edema, joint swelling, calf tenderness Back exam: Present: normal inspection Neurological exam: Present: alert, oriented X3, CN II-XII intact Psychiatric exam: Present: normal affect, normal mood Skin exam: Present: warm, dry, intact, normal color. Absent: rash Course Vital Signs 09/29/19 12:45 Temperature 97.8 F Pulse Rate 72 Respiratory 18 Rate Blood Pressure 146/89 O2 Sat by Pulse 97 Oximetry Procedures - Nerve Block Local Anesthetic Used: Lidocaine 1% Amount of anesthesia used: 4 Side: right Nerve Blocks: digital (First toe ) Procedure Successful: Yes Patient Tolerated Procedure: well, no complications Medical Decision Making - Medical Decision Making Patient is a 54-year-old female presents range from today with complaints of sinus pressure, or cough. She also complains of a right great toenail infection. Patient had a minor cough as well. Chest x-ray was reviewed and no pneumonia or evidence of myocardial megaly. She denies any chest pain. She has tenderness over her sinuses. Discussed that she also has a ingrown toenail the right great toe. A digital block was completed and partial removal of the ingrown toenail was completed. Patient tolerated the procedure well. There was pus from the ingrown toenail and this is cultured. With her history of MRSA I discussed treatment for sinusitis and the infected toe with doxycycline. I discussed return parameters. - Radiology Data Radiology results: report reviewed Chest x-ray shows evidence of mild cardiomegaly. Disposition Clinical Impression: Ingrown toenail, Sinusitis Disposition: HOME SELF-CARE Condition: Stable Instructions (If sedation given, give patient instructions): Ingrown Nail (ED), Sinusitis (ED) Additional Instructions: Please use medication as discussed. Please follow up with family doctor if symptoms have not improved over the next two days. Continue to did do warm soaks of the foot without consult. Keep wound covered with antibiotic ointment and bandage. Recommended following up with line painting machine operator as well. Please return to the emergency room if your symptoms increase or worsen or for any other concerns. Prescriptions: Doxycycline [Vibramycin] 100 mg PO BID 7 Days #14 capsule Is patient prescribed a controlled substance at d/c from ED?: No Referrals: Robbie Nieves MD [Primary Care Provider] - 1-2 days Time of Disposition: 14:07
--- NOTE | 2019-09-29 13:22 | XR ---
EXAMINATION TYPE: XR chest 2V DATE OF EXAM: 09/29/2019 HISTORY: cough. REFERENCE: Previous study dated 12/18/2018. FINDINGS: The heart is mildly enlarged. The lungs are clear. Pleural spaces are clear. IMPRESSION: MILD CARDIOMEGALY.
== END 2019-09-29 14:26 | disposition home or self-care (01) ==
LOC: EC 12:32
DX: J32.9 Chronic sinusitis, unspecified (principal); L60.0 Ingrowing nail; J45.909 Unspecified asthma, uncomplicated; N18.3 Chronic kidney disease, stage 3 (moderate); E11.22 Type 2 diabetes mellitus with diabetic chronic kidney disease; K21.9 Gastro-esophageal reflux disease without esophagitis; E78.5 Hyperlipidemia, unspecified; I12.9 Hypertensive chronic kidney disease with stage 1 through stage 4 chronic kidney disease, or unspecified chronic kidney disease; E11.42 Type 2 diabetes mellitus with diabetic polyneuropathy; E55.9 Vitamin D deficiency, unspecified; F41.9 Anxiety disorder, unspecified; Z88.0 Allergy status to penicillin; Z88.1 Allergy status to other antibiotic agents; Z88.2 Allergy status to sulfonamides; Z88.5 Allergy status to narcotic agent; Z91.013 Allergy to seafood; Z91.048 Other nonmedicinal substance allergy status; Z79.4 Long term (current) use of insulin; Z79.51 Long term (current) use of inhaled steroids; Z79.899 Other long term (current) drug therapy; Z87.01 Personal history of pneumonia (recurrent); Z86.69 Personal history of other diseases of the nervous system and sense organs; Z86.14 Personal history of Methicillin resistant Staphylococcus aureus infection
CPT/HCPCS: 87070; 87205; 71046; 99285; 11730; J2001; 87077; 87186

== ENCOUNTER 2020-08-22 05:18 | Emergency (ER) | payer BC, MEDICARE ==
[2020-08-22 05:27] VITALS: PULSE 87; TEMP 99.6
--- NOTE | 2020-08-22 05:47 | ED ---
Extremity Problem HPI - History of Present Illness MD Complaint: extremity pain <German Haddad - Last Filed: 08/22/20 08:31> - General Source: patient, family Mode of arrival: ambulatory Limitations: no limitations <Steve Uribe - Last Filed: 08/22/20 23:53> - General Chief complaint: Extremity Injury, Lower Stated complaint: Leg pain Time Seen by Provider: 08/22/20 05:26 - History of Present Illness Initial comments: The patient was endorsed be a shift change pending the ultrasound the patient's lower extremity patient did present with complaints of lower extremity pain in the left radiate from behind her posterior lateral distal thigh down to her foot. She also states she has some calf pain. No trauma reported no fevers chills sweats or other symptoms (German Haddad) This is a 55-year-old female DF for evaluation she presents today for bilateral lower [place] pain and swelling. Patient concern for DVT. Patient has no chest pain no shortness of breath. No recent trauma to that area. Patient has no h istory of blood clot. (Steve Uribe) - Related Data Home Medications Medication Instructions Recorded Confirmed Citalopram Hydrobromide [CeleXA] 40 mg PO HS 02/25/17 08/22/20 Gabapentin 600 mg PO BID 02/25/17 08/22/20 Cetirizine HCl [Zyrtec] 10 mg PO DAILY 11/14/17 08/22/20 ALPRAZolam [Xanax] 0.5 mg PO TID PRN 10/16/18 08/22/20 Carvedilol [Coreg] 25 mg PO BID 10/16/18 08/22/20 traZODone HCL [Desyrel] 100 mg PO HS PRN 10/16/18 08/22/20 Albuterol Inhaler (Mhu) [Ventolin 1 - 2 puff INHALATION RT-Q6H PRN 02/06/19 08/22/20 Hfa Inhaler (Mhu)] Chlorthalidone [Hygroton] 25 mg PO DAILY 02/06/19 08/22/20 Ergocalciferol (Vitamin D2) 50,000 unit PO Q30D 02/06/19 08/22/20 [Vitamin D2] Fluticasone/Umeclidin/Vilanter 1 puff INHALATION RT-DAILY 02/06/19 08/22/20 [Trelegy Ellipta 100-62.5-25] Montelukast Sodium [Singulair] 10 mg PO HS 02/06/19 08/22/20 Allopurinol [Zyloprim] 300 mg PO DAILY 08/22/20 08/22/20 Famotidine 20 mg PO DAILY 08/22/20 08/22/20 Insulin Detemir [Levemir Flextouch] 60 units SQ HS 08/22/20 08/22/20 Insulin Lispro [humaLOG Kwikpen] 15 unit SQ BID 08/22/20 08/22/20 Isosorbide Mononitrate [Ismo] 10 mg PO DAILY 08/22/20 08/22/20 Losartan Potassium 100 mg PO DAILY 08/22/20 08/22/20 Semaglutide [Ozempic] 0.25 mg SQ GARCIA 08/22/20 08/22/20 Triamcinolone Acetonide 1 spray EA NOSTRIL DAILY 08/22/20 08/22/20 [Triamcinolone Acetonide 0.055MG Nasal] traMADol HCL [Ultram] 50 mg PO Q6H PRN 08/22/20 08/22/20 Previous Rx's Medication Instructions Recorded hydrALAZINE HCL [Apresoline] 25 mg PO BID #60 tab 12/20/18 Furosemide [Lasix] 20 mg PO DAILY #7 tab 08/22/20 Allergies Allergy/AdvReac Type Severity Reaction Status Date / Time hydrocodone [From [place]] Allergy Hallucinati Verified 08/22/20 08:15 ons/vomitin g Penicillins Allergy Anaphylaxis Verified 08/22/20 08:15 Sulfa (Sulfonamide Allergy Anaphylaxis Verified 08/22/20 08:15 Antibiotics) adhesive tape AdvReac Itching/swe Verified 08/22/20 08:15 lling cephalexin [From Keflex] AdvReac Unknown Verified 08/22/20 08:15 Childhood measles, mumps, and rubella AdvReac Rash/Hives Verified 08/22/20 08:15 vaccine shellfish derived [Shrimp] AdvReac Rash/Hives Verified 08/22/20 08:15 Pibndha-Esj-Vpq Reductase AdvReac Unknown Verified 08/22/20 08:15 Inhibitor Review of Systems ROS Other: All systems not noted in ROS Statement are negative. Limitations: ROS unobtainable due to patients medical condition <German Haddad - Last Filed: 08/22/20 08:31> ROS Other: All systems not noted in ROS Statement are negative. <Steve Uribe - Last Filed: 08/22/20 23:53> ROS Statement: Those systems with pertinent positive or pertinent negative responses have been documented in the HPI. 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 History of Any Multi-Drug Resistant Organisms: MRSA Date of last positivie culture/infection: 09/29/19 MDRO Source:: TOE Past Surgical History: Section, Uterine Ablation Additional Past Surgical History / Comment(s): C/S x 4, cyst removed from forehead, EGD, left cataract with lens implant then retinal surgery d/t detachment, Lt cheek abscesses incision and drainages. Past Anesthesia/Blood Transfusion Reactions: Motion Sickness, Postoperative Nausea & Vomiting (PONV) Past Psychological History: Anxiety Smoking Status: Never smoker Past Alcohol Use History: Occasional Past Drug Use History: None Reported - Past Family History Father Family Medical History: Cancer Additional Family Medical History / Comment(s): cancerous polyp Mother Family Medical History: Hypertension Additional Family Medical History / Comment(s): Mother had irregular heartbeat and boarderline diabetes. <Steve Uribe - Last Filed: 08/22/20 23:53> General Exam General appearance: alert, in no apparent distress Head exam: Present: atraumatic, normocephalic, normal inspection Eye exam: Present: normal appearance Neck exam: Present: full ROM Respiratory exam: Present: normal lung sounds bilaterally. Absent: respiratory distress, wheezes, rales, rhonchi, stridor Cardiovascular Exam: Present: regular rate, normal rhythm, normal heart sounds. Absent: systolic murmur, diastolic murmur, rubs, gallop, clicks Extremities exam: Present: full ROM, normal capillary refill, pedal edema (some edema noted to the left), other (some tenderness palpation over the posterior left calf no popliteal this. No sensorimotor or basilar deficits) Back exam: Present: normal inspection, full ROM Neurological exam: Present: alert, oriented X3, CN II-XII intact Psychiatric exam: Present: normal affect, normal mood Skin exam: Present: warm, dry, intact, normal color. Absent: rash <German Haddad - Last Filed: 08/22/20 08:31> Limitations: no limitations <Steve Uribe - Last Filed: 08/22/20 23:53> - General Exam Comments Initial Comments: this is a well-developed well-nourished awake alert oriented 3 female (German Haddad) Course <Steve Uribe - Last Filed: 08/22/20 23:53> Vital Signs 08/22/20 08/22/20 08/22/20 05:22 06:34 08:02 Temperature 99.6 F Pulse Rate 87 Respiratory 22 17 Rate Blood Pressure 214/132 216/112 202/96 O2 Sat by Pulse 97 Oximetry - Reevaluation(s) Reevaluation #1: Medical record is reviewed Patient does have elevated d-dimer (Steve Uribe) Medical Decision Making - Lab Data Result diagrams: 08/22/20 05:37 08/22/20 05:37 <German Haddad - Last Filed: 08/22/20 08:31> - Lab Data Result diagrams: 08/22/20 05:37 08/22/20 05:37 <Steve Uribe - Last Filed: 08/22/20 23:53> - Medical Decision Making ultrasound shows no evidence of DVT. Lab work reveals evidence of chronic renal insufficiency the elevated d-dimer is likely on this basis. Patient will be placed on a low-dose of Lasix he'll follow-up with her doctor in several days. Today is Monday. She is in agreement with this. Pain may be related to sciatic-type issues and the patient relates she has some discomfort at times radiates down from her buttock area (German Haddad) - Lab Data Lab Results 08/22/20 08/22/20 08/22/20 Range/Units 05:37 05:37 05:37 WBC 7.7 (3.8-10.6) k/uL RBC 4.05 (3.80-5.40) m/uL Hgb 12.0 (11.4-16.0) gm/dL Hct 36.4 (34.0-46.0) % MCV 90.0 (80.0-100.0) fL MCH 29.8 (25.0-35.0) pg MCHC 33.1 (31.0-37.0) g/dL RDW 13.7 (11.5-15.5) % Plt Count 195 (150-450) k/uL MPV 6.4 Neutrophils % 66 % Lymphocytes % 18 % Monocytes % 4 % Eosinophils % 10 % Basophils % 1 % Neutrophils # 5.1 (1.3-7.7) k/uL Lymphocytes # 1.4 (1.0-4.8) k/uL Monocytes # 0.3 (0-1.0) k/uL Eosinophils # 0.8 H (0-0.7) k/uL Basophils # 0.0 (0-0.2) k/uL PT 9.5 (9.0-12.0) sec INR 0.9 (<1.2) APTT 20.6 L (22.0-30.0) sec D-Dimer 1.59 H (<0.60) mg/L FEU Sodium 140 (137-145) mmol/L Potassium 4.5 (3.5-5.1) mmol/L Chloride 104 (98-107) mmol/L Carbon Dioxide 30 (22-30) mmol/L Anion Gap 6 mmol/L BUN 39 H (7-17) mg/dL Creatinine 2.17 H (0.52-1.04) mg/dL Est GFR (CKD-EPI)AfAm 29 (>60 ml/min/1.73 sqM) Est GFR (CKD-EPI)NonAf 25 (>60 ml/min/1.73 sqM) Glucose 113 H (74-99) mg/dL Calcium 10.1 (8.4-10.2) mg/dL Phosphorus 3.7 (2.5-4.5) mg/dL Magnesium 2.0 (1.6-2.3) mg/dL Total Bilirubin 0.4 (0.2-1.3) mg/dL AST 20 (14-36) U/L ALT 12 (4-34) U/L Alkaline Phosphatase 78 (38-126) U/L NT-Pro-B Natriuret Pep pg/mL Total Protein 7.3 (6.3-8.2) g/dL Albumin 4.1 (3.5-5.0) g/dL 08/22/20 Range/Units 05:37 WBC (3.8-10.6) k/uL RBC (3.80-5.40) m/uL Hgb (11.4-16.0) gm/dL Hct (34.0-46.0) % MCV (80.0-100.0) fL MCH (25.0-35.0) pg MCHC (31.0-37.0) g/dL RDW (11.5-15.5) % Plt Count (150-450) k/uL MPV Neutrophils % % Lymphocytes % % Monocytes % % Eosinophils % % Basophils % % Neutrophils # (1.3-7.7) k/uL Lymphocytes # (1.0-4.8) k/uL Monocytes # (0-1.0) k/uL Eosinophils # (0-0.7) k/uL Basophils # (0-0.2) k/uL PT (9.0-12.0) sec INR (<1.2) APTT (22.0-30.0) sec D-Dimer (<0.60) mg/L FEU Sodium (137-145) mmol/L Potassium (3.5-5.1) mmol/L Chloride (98-107) mmol/L Carbon Dioxide (22-30) mmol/L Anion Gap mmol/L BUN (7-17) mg/dL Creatinine (0.52-1.04) mg/dL Est GFR (CKD-EPI)AfAm (>60 ml/min/1.73 sqM) Est GFR (CKD-EPI)NonAf (>60 ml/min/1.73 sqM) Glucose (74-99) mg/dL Calcium (8.4-10.2) mg/dL Phosphorus (2.5-4.5) mg/dL Magnesium (1.6-2.3) mg/dL Total Bilirubin (0.2-1.3) mg/dL AST (14-36) U/L ALT (4-34) U/L Alkaline Phosphatase (38-126) U/L NT-Pro-B Natriuret Pep 1630 pg/mL Total Protein (6.3-8.2) g/dL Albumin (3.5-5.0) g/dL Disposition Is patient prescribed a controlled substance at d/c from ED?: No <German Haddad - Last Filed: 08/22/20 08:31> <Steve Uribe - Last Filed: 08/22/20 23:53> Clinical Impression: Left leg pain, Edema, Chronic renal insufficiency Disposition: HOME SELF-CARE Condition: Good Instructions (If sedation given, give patient instructions): Edema (ED), Leg Pain (ED) Additional Instructions: Elevate your legs 2-3 times a day as directed Prescriptions: Furosemide [Lasix] 20 mg PO DAILY #7 tab Referrals: Robbie Nieves MD [Primary Care Provider] - 1-2 days
[2020-08-22] MEDS ORDERED: HYDROmorphone 1 MG/ML 1 ML SYRINGE IVP STA (05:55)
[2020-08-22 05:57] LABS: Basophils % (A) 1 %; Eosinophils # (A) 0.8 k/uL (0-0.7); Eosinophils % (A) 10 %; HCT 36.4 % (34.0-46.0); Lymphocytes # (A) 1.4 k/uL (1.0-4.8); Lymphocytes % (A) 18 %; MCH 29.8 pg (25.0-35.0); MCHC 33.1 g/dL (31.0-37.0); Mean Platelet Volume 6.4; Monocytes # (A) 0.3 k/uL (0-1.0); Monocytes % (A) 4 %; Neutrophils # (A) 5.1 k/uL (1.3-7.7); Neutrophils % (A) 66 %; Platelet Count 195 k/uL (150-450); RBC 4.05 m/uL (3.80-5.40); RDW 13.7 % (11.5-15.5); WBC 7.7 k/uL (3.8-10.6)
[2020-08-22 06:07] LABS: Albumin 4.1 g/dL (3.5-5.0); Calcium 10.1 mg/dL (8.4-10.2); Phosphorus 3.7 mg/dL (2.5-4.5); Potassium 4.5 mmol/L (3.5-5.1); Total Bilirubin 0.4 mg/dL (0.2-1.3); Total Protein 7.3 g/dL (6.3-8.2)
[2020-08-22 06:21] LABS: INR 0.9 (<1.2); Prothrombin Time 9.5 sec (9.0-12.0)
[2020-08-22 06:26] LABS: D-Dimer 1.59 mg/L FEU (<0.60)
[2020-08-22 06:27] LABS: Partial Thromboplastin Time 20.6 sec (22.0-30.0)
--- NOTE | 2020-08-22 07:37 | US ---
EXAMINATION TYPE: US venous doppler duplex LE LT DATE OF EXAM: 08/22/2020 5:34 AM COMPARISON: US 2018 CLINICAL HISTORY: 55-year-old female DVT. Left leg pain and swelling x couple weeks SIDE PERFORMED: Left TECHNIQUE: The lower extremity deep venous system is examined utilizing real time linear array sonog jf with graded compression, doppler sonography and color-flow sonography. FINDINGS: VESSELS IMAGED: Common Femoral Vein Deep Femoral Vein Greater Saphenous Vein * Femoral Vein Popliteal Vein Small Saphenous Vein * Proximal Calf Veins (* superficial vessels) Left Leg: Appears negative for DVT IMPRESSION: No evidence for DVT within the left lower extremity imaged from the groin to the upper calf.
[2020-08-22 08:07] VITALS: BP 202/96; RESP 17
== END 2020-08-22 09:14 | disposition home or self-care (01) ==
LOC: EC 05:18
DX: M79.662 Pain in left lower leg (principal); F41.9 Anxiety disorder, unspecified; E11.22 Type 2 diabetes mellitus with diabetic chronic kidney disease; J45.909 Unspecified asthma, uncomplicated; E11.40 Type 2 diabetes mellitus with diabetic neuropathy, unspecified; K21.9 Gastro-esophageal reflux disease without esophagitis; E78.5 Hyperlipidemia, unspecified; I12.9 Hypertensive chronic kidney disease with stage 1 through stage 4 chronic kidney disease, or unspecified chronic kidney disease; N18.30 Chronic kidney disease, stage 3 unspecified; Z79.51 Long term (current) use of inhaled steroids; Z79.899 Other long term (current) drug therapy; Z88.0 Allergy status to penicillin; Z88.1 Allergy status to other antibiotic agents; Z88.5 Allergy status to narcotic agent; Z88.7 Allergy status to serum and vaccine; Z88.8 Allergy status to other drugs, medicaments and biological substances; Z91.013 Allergy to seafood; Z91.048 Other nonmedicinal substance allergy status; Z86.14 Personal history of Methicillin resistant Staphylococcus aureus infection; Z86.69 Personal history of other diseases of the nervous system and sense organs; Z98.42 Cataract extraction status, left eye; Z96.1 Presence of intraocular lens
CPT/HCPCS: 36415; 85379; 83880; 80053; 83735; 84100; 85025; 85610; 85730; 93971; 99284; 96374; J1170

== ENCOUNTER 2020-09-30 15:03 | Inpatient (IN) | payer BC, MEDICARE ==
[2020-09-30 16:04] LABS: Basophils % (A) 1 %; Eosinophils # (A) 0.7 k/uL (0-0.7); Eosinophils % (A) 12 %; HCT 37.3 % (34.0-46.0); HGB 12.9 gm/dL (11.4-16.0); Lymphocytes # (A) 0.7 k/uL (1.0-4.8); Lymphocytes % (A) 11 %; MCH 30.3 pg (25.0-35.0); MCHC 34.5 g/dL (31.0-37.0); Mean Platelet Volume 7.1; Monocytes # (A) 0.2 k/uL (0-1.0); Monocytes % (A) 4 %; Neutrophils # (A) 4.1 k/uL (1.3-7.7); Neutrophils % (A) 71 %; Platelet Count 139 k/uL (150-450); RBC 4.24 m/uL (3.80-5.40); RDW 13.2 % (11.5-15.5); WBC 5.8 k/uL (3.8-10.6)
--- NOTE | 2020-09-30 16:12 | XR ---
EXAMINATION TYPE: XR chest 1V portable DATE OF EXAM: 09/30/2020 HISTORY: Shortness of breath. COMPARISON: 09/29/2019 TECHNIQUE: Single view of the chest is submitted. FINDINGS: Demonstrated are scattered senescent parenchymal change. Vague infiltrates are seen bilaterally within the mid and lower lung zones. Correlate for developing pneumonia. The heart is stable. Hilar and mediastinal structures are within normal limits. Degenerative changes are seen of the dorsal spine. IMPRESSION: 1. Vague infiltrates are seen bilaterally within the mid and lower lung zones. Correlate for develop ing pneumonia.
[2020-09-30 16:18] LABS: Albumin 3.8 g/dL (3.5-5.0); Calcium 9.2 mg/dL (8.4-10.2); Magnesium 1.8 mg/dL (1.6-2.3); Potassium 4.5 mmol/L (3.5-5.1); Total Bilirubin 0.5 mg/dL (0.2-1.3); Total Protein 7.2 g/dL (6.3-8.2)
[2020-09-30 16:20] LABS: INR 0.9 (<1.2); Partial Thromboplastin Time 23.5 sec (22.0-30.0); Prothrombin Time 9.9 sec (9.0-12.0)
[2020-09-30 16:37] LABS: D-Dimer 0.92 mg/L FEU (<0.60)
[2020-09-30] MEDS ORDERED: ACETAMINOPHEN TAB 500 MG TAB PO STA (17:39)
--- NOTE | 2020-09-30 18:21 | ED ---
General Adult HPI - General Chief complaint: Fever Stated complaint: Chest pain/sob/cough Time Seen by Provider: 09/30/20 16:51 Source: patient Mode of arrival: ambulatory Limitations: no limitations - History of Present Illness Initial comments: Dictation was produced using [employer] dictation software. please excuse any grammatical, word or spelling errors. This patient was cared for during a federal and state declared state of emergency secondary to Covid 19 Chief Complaint: 55-year-old female past medical history of chronic kidney disease presents with fever, cough 2-3 days History of Present Illness: 55-year-old female she presents with URI-type symptoms. Patient presents with . Patient has been having URI symptoms for the last 2-3 days. Patient reports that their daughter's contracted coronavirus. Patient had both vaccinations for covid 19. She received her second vaccination dose one week ago. Patient completed a course of steroids and Z-Russel with no improvement. States that she has exertional dyspnea. Denies any pain complaints. The ROS documented in this emergency department record has been reviewed and confirmed by me. Those systems with pertinent positive or negative responses have been documented in the HPI. All other systems are other negative and/or noncontributory. PHYSICAL EXAM: General Impression: Alert and oriented x3, not in acute distress HEENT: Normocephalic atraumatic, extra-ocular movements intact, pupils equal and reactive to light bilaterally, mucous membranes moist. Cardiovascular: Heart regular rate and rhythm Chest: Able to complete full sentences, no retractions, no tachypnea Abdomen: abdomen soft, non-tender, non-distended, no organomegaly Musculoskeletal: Pulses present and equal in all extremities, no peripheral edema Motor: no focal deficits noted Neurological: CN II-XII grossly intact, no focal motor or sensory deficits noted Skin: Intact with no visualized rashes Psych: Normal affect and mood ED course: 55-year-old female presents to the emergency department for URI type symptoms. She has multiple comorbidities. As upon arrival shows him to 102.2, heart rate of 107. Patient is 93% on room air at rest. Laboratory evaluation obtained. CBC unremarkable. Coag panel is negative. D-dimer 0.92. Metabolic panel shows creatinine of 2.57. She has elevated inflammatory markers. Coronavirus test is positive. She however received both vaccination doses of the moderna vaccine Chest x-ray shows vague infiltrate seen bilaterally within the mid and lower lung zones. Laboratory evaluation obtained. CBC is unremarkable. Metabolic panel is negative. D-dimer is elevated 0.92. Renal markers beta be stable. Rotavirus test is positive. Patient elevated d-dimer suspicious for pulmonary embolus. Patient got a VQ scan which showed no findings to suggest pulmonary embolus. Patient given 6 mg of by mouth Decadron. Patient be admitted to written a consultation to pulmonology. - Related Data Home Medications Medication Instructions Recorded Confirmed Citalopram Hydrobromide [CeleXA] 40 mg PO HS 02/25/17 08/22/20 Gabapentin 600 mg PO BID 02/25/17 08/22/20 Cetirizine HCl [Zyrtec] 10 mg PO DAILY 11/14/17 08/22/20 ALPRAZolam [Xanax] 0.5 mg PO TID PRN 10/16/18 08/22/20 Carvedilol [Coreg] 25 mg PO BID 10/16/18 08/22/20 traZODone HCL [Desyrel] 100 mg PO HS PRN 10/16/18 08/22/20 Albuterol Inhaler (Mhu) [Ventolin 1 - 2 puff INHALATION RT-Q6H PRN 02/06/19 08/22/20 Hfa Inhaler (Mhu)] Chlorthalidone [Hygroton] 25 mg PO DAILY 02/06/19 08/22/20 Ergocalciferol (Vitamin D2) 50,000 unit PO Q30D 02/06/19 08/22/20 [Vitamin D2] Fluticasone/Umeclidin/Vilanter 1 puff INHALATION RT-DAILY 02/06/19 08/22/20 [Trelegy Ellipta 100-62.5-25] Montelukast Sodium [Singulair] 10 mg PO HS 02/06/19 08/22/20 Allopurinol [Zyloprim] 300 mg PO DAILY 08/22/20 08/22/20 Famotidine 20 mg PO DAILY 08/22/20 08/22/20 Insulin Detemir [Levemir Flextouch] 60 units SQ HS 08/22/20 08/22/20 Insulin Lispro [humaLOG Kwikpen] 15 unit SQ BID 08/22/20 08/22/20 Isosorbide Mononitrate [Ismo] 10 mg PO DAILY 08/22/20 08/22/20 Losartan Potassium 100 mg PO DAILY 08/22/20 08/22/20 Semaglutide [Ozempic] 0.25 mg SQ GARCIA 08/22/20 08/22/20 Triamcinolone Acetonide 1 spray EA NOSTRIL DAILY 08/22/20 08/22/20 [Triamcinolone Acetonide 0.055MG Nasal] traMADol HCL [Ultram] 50 mg PO Q6H PRN 08/22/20 08/22/20 Previous Rx's Medication Instructions Recorded hydrALAZINE HCL [Apresoline] 25 mg PO BID #60 tab 12/20/18 Furosemide [Lasix] 20 mg PO DAILY #7 tab 08/22/20 Allergies Allergy/AdvReac Type Severity Reaction Status Date / Time hydrocodone [From [place]] Allergy Hallucinati Verified 09/30/20 15:13 ons/vomitin g Penicillins Allergy Anaphylaxis Verified 09/30/20 15:13 Sulfa (Sulfonamide Allergy Anaphylaxis Verified 09/30/20 15:13 Antibiotics) adhesive tape AdvReac Itching/swe Verified 09/30/20 15:13 lling cephalexin [From Keflex] AdvReac Unknown Verified 09/30/20 15:13 Childhood measles, mumps, and rubella AdvReac Rash/Hives Verified 09/30/20 15:13 vaccine shellfish derived [Shrimp] AdvReac Rash/Hives Verified 09/30/20 15:13 [id number]-Rca-Zys Reductase AdvReac Unknown Verified 09/30/20 15:13 Inhibitor Review of Systems ROS Statement: Those systems with pertinent positive or pertinent negative responses have been documented in the HPI. ROS Other: All systems not noted in ROS Statement are negative. 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 History of Any Multi-Drug Resistant Organisms: MRSA Date of last positivie culture/infection: 09/29/19 MDRO Source:: TOE Past Surgical History: Section, Uterine Ablation Additional Past Surgical History / Comment(s): C/S x 4, cyst removed from forehead, EGD, left cataract with lens implant then retinal surgery d/t detachment, Lt cheek abscesses incision and drainages. Past Anesthesia/Blood Transfusion Reactions: Motion Sickness, Postoperative Nausea & Vomiting (PONV) Past Psychological History: Anxiety Smoking Status: Never smoker Past Alcohol Use History: Occasional Past Drug Use History: None Reported - Past Family History Father Family Medical History: Cancer Additional Family Medical History / Comment(s): cancerous polyp Mother Family Medical History: Hypertension Additional Family Medical History / Comment(s): Mother had irregular heartbeat and boarderline diabetes. General Exam Limitations: no limitations Course Vital Signs 09/30/20 09/30/20 09/30/20 15:09 17:03 18:34 Temperature 102.2 F H 102.4 F H Pulse Rate 107 H 103 H Respiratory 22 18 Rate Blood Pressure 175/102 183/98 O2 Sat by Pulse 93 L 92 L 94 L Oximetry Medical Decision Making - Lab Data Result diagrams: 09/30/20 15:54 09/30/20 15:54 Lab Results 09/30/20 09/30/20 09/30/20 Range/Units 15:17 15:54 15:54 WBC 5.8 (3.8-10.6) k/uL RBC 4.24 (3.80-5.40) m/uL Hgb 12.9 (11.4-16.0) gm/dL Hct 37.3 (34.0-46.0) % MCV 88.0 (80.0-100.0) fL MCH 30.3 (25.0-35.0) pg MCHC 34.5 (31.0-37.0) g/dL RDW 13.2 (11.5-15.5) % Plt Count 139 L (150-450) k/uL MPV 7.1 Neutrophils % 71 % Lymphocytes % 11 % Monocytes % 4 % Eosinophils % 12 % Basophils % 1 % Neutrophils # 4.1 (1.3-7.7) k/uL Lymphocytes # 0.7 L (1.0-4.8) k/uL Monocytes # 0.2 (0-1.0) k/uL Eosinophils # 0.7 (0-0.7) k/uL Basophils # 0.0 (0-0.2) k/uL PT 9.9 (9.0-12.0) sec INR 0.9 (<1.2) APTT 23.5 (22.0-30.0) sec D-Dimer 0.92 H (<0.60) mg/L FEU Sodium (137-145) mmol/L Potassium (3.5-5.1) mmol/L Chloride (98-107) mmol/L Carbon Dioxide (22-30) mmol/L Anion Gap mmol/L BUN (7-17) mg/dL Creatinine (0.52-1.04) mg/dL Est GFR (CKD-EPI)AfAm (>60 ml/min/1.73 sqM) Est GFR (CKD-EPI)NonAf (>60 ml/min/1.73 sqM) Glucose (74-99) mg/dL Plasma Lactic Acid [place] (0.7-2.0) mmol/L Calcium (8.4-10.2) mg/dL Magnesium (1.6-2.3) mg/dL Total Bilirubin (0.2-1.3) mg/dL AST (14-36) U/L ALT (4-34) U/L Alkaline Phosphatase (38-126) U/L Lactate Dehydrogenase (313-618) U/L C-Reactive Protein (<10.0) mg/L Total Protein (6.3-8.2) g/dL Albumin (3.5-5.0) g/dL Coronavirus (PCR) Detected A (Not Detectd) 09/30/20 09/30/20 Range/Units 15:54 15:54 WBC (3.8-10.6) k/uL RBC (3.80-5.40) m/uL Hgb (11.4-16.0) gm/dL Hct (34.0-46.0) % MCV (80.0-100.0) fL MCH (25.0-35.0) pg MCHC (31.0-37.0) g/dL RDW (11.5-15.5) % Plt Count (150-450) k/uL MPV Neutrophils % % Lymphocytes % % Monocytes % % Eosinophils % % Basophils % % Neutrophils # (1.3-7.7) k/uL Lymphocytes # (1.0-4.8) k/uL Monocytes # (0-1.0) k/uL Eosinophils # (0-0.7) k/uL Basophils # (0-0.2) k/uL PT (9.0-12.0) sec INR (<1.2) APTT (22.0-30.0) sec D-Dimer (<0.60) mg/L FEU Sodium 137 (137-145) mmol/L Potassium 4.5 (3.5-5.1) mmol/L Chloride 103 (98-107) mmol/L Carbon Dioxide 24 (22-30) mmol/L Anion Gap 10 mmol/L BUN 39 H (7-17) mg/dL Creatinine 2.57 H (0.52-1.04) mg/dL Est GFR (CKD-EPI)AfAm 24 (>60 ml/min/1.73 sqM) Est GFR (CKD-EPI)NonAf 20 (>60 ml/min/1.73 sqM) Glucose 130 H (74-99) mg/dL Plasma Lactic Acid [place] 0.9 (0.7-2.0) mmol/L Calcium 9.2 (8.4-10.2) mg/dL Magnesium 1.8 (1.6-2.3) mg/dL Total Bilirubin 0.5 (0.2-1.3) mg/dL AST 25 (14-36) U/L ALT 14 (4-34) U/L Alkaline Phosphatase 69 (38-126) U/L Lactate Dehydrogenase 686 H (313-618) U/L C-Reactive Protein 205.0 H (<10.0) mg/L Total Protein 7.2 (6.3-8.2) g/dL Albumin 3.8 (3.5-5.0) g/dL Coronavirus (PCR) (Not Detectd) Disposition Clinical Impression: COVID-19, Hypoxia Disposition: ADMITTED IP TO THIS HOSP Condition: Fair Referrals: Robbie Nieves MD [Primary Care Provider] - 1-2 days Decision Time: 19:53
--- NOTE | 2020-09-30 19:15 | NM ---
EXAMINATION TYPE: NM pul perfusion DATE OF EXAM: 09/30/2020 COMPARISON: NONE HISTORY: Elevated d-dimer and Covid positive patient. Following administration of 5.3 mCi Tc 99m MAA. Images obtained post injection. FINDINGS: Homogeneous perfusion bilaterally without significant defects. IMPRESSION: Normal pulmonary perfusion scan without evidence to suggest embolus.
[2020-09-30] MEDS ORDERED: NALOXONE 0.4 MG/ML 1 ML VIAL IV PRN (19:50)
[2020-09-30] MEDS ORDERED: dexAMETHasone 4 MG TAB PO STA (19:51)
[2020-09-30] MEDS: SODIUM CHLORIDE 0.9% 1,000 ML IV SCH (20:48)
[2020-10-01] MEDS: ACETAMINOPHEN TAB 325 MG TAB PO PRN (02:20)
[2020-10-01 06:29] LABS: Ferritin 147.6 ng/mL (10.0-291.0)
--- NOTE | 2020-10-01 09:50 | P.CNPUL ---
History of Present Illness Consult date: 10/01/20 Reason for consult: pneumonia History of present illness: 55-year-old female patient was already received her Moderna vaccination for COVID 19, came to the hospital because of symptoms of URI, fever of 102.2, tachycardia with some degree of hypoxemia with a pulse of 93% on room air. The patient reported that she was having fever and cough a few days duration. Patient's daughter has contracted the Covid 19 infection. The patient herself completed the vaccination approximately a week ago. She was complicated course of steroids a Z-Russel without any improvement and for that reason she came in to the emergency department. Her white cell count was at 5.8 with hemoglobin 12.9 and platelets of 139. The patient has chronic kidney disease with a BUN of 39 and a creatinine of 2.7 and the rest of the electrodes are all within normal limits. CRP is 205, LDH is 686, LFTs are within normal limits, total protein is at 7.2 with an albumin of 3.8 and the patient's lactic acid level was at 0.9. The chest x-ray showed vague infiltrates bilaterally within the mid and lower lung li consistent with developing pneumonia. Degenerative changes also seen of the dorsal spine.The patient's d-dimer was at 0.7 the patient had a perfusion scan in the emergency that showed no evidence of any pulmonary embolism. There was heterogeneous perfusion bilaterally without any significant defects. Review of Systems Constitutional: Reports fatigue, Reports fever, Reports weakness Eyes: denies as per HPI, denies blurred vision, denies bulging eye, denies decreased vision, denies diplopia, denies discharge, denies dry eye, denies irritation, denies itching, denies pain, denies photophobia, denies loss of peripheral vision, denies loss of vision, denies tunnel vision/blind spots Ears: deny: decreased hearing, ear discharge, earache, tinnitus Ears, nose, mouth and throat: Reports as per HPI Breasts: absent: as per HPI, change in shape, gynecomastia, masses, nipple discharge, pain, skin changes, swelling Cardiovascular: Reports decreased exercise tolerance, Reports dyspnea on exertion Respiratory: Reports dyspnea Gastrointestinal: Reports as per HPI Genitourinary: Reports as per HPI Menstruation: Reports as per HPI Musculoskeletal: Reports as per HPI Musculoskeletal: absent: ankle pain, ankle stiffness, ankle swelling Integumentary: Reports as per HPI Neurological: Denies as per HPI Psychiatric: Reports as per HPI Endocrine: Reports as per HPI, Reports fatigue Hematologic/Lymphatic: Reports as per HPI Allergic/Immunologic: Reports as per HPI Past Medical History Past Medical History: Coronary Artery Disease (CAD), Diabetes Mellitus, Eye Disorder, GERD/Reflux, Hyperlipidemia, Hypertension, Pneumonia, Renal Disease Additional Past Medical History / Comment(s): Recent sinus infection treated with antibiotic, IDDM type II, neuropathy bilateral feet, past acute hyperosmolar ketotic diabetic state, CKD stage III, retinal damage L eye with partial vision loss and loss of depth perception, iron anemia, pancreatitis, stomach ulcer, hiatal hernia, bronchitis, pneumonia as a child, migraines in the past, vitamin D deficiency, facial cellulitis/sepsis with MRSA infection, edema with steroid use, past r ankle fracture. History of Any Multi-Drug Resistant Organisms: MRSA Date of last positivie culture/infection: 09/29/19 MDRO Source:: TOE Past Surgical History: Section, Uterine Ablation Additional Past Surgical History / Comment(s): C/S x 4, cyst removed from forehead, EGD, left cataract with lens implant then retinal surgery d/t detachment, Lt cheek abscesses incision and drainages. Past Anesthesia/Blood Transfusion Reactions: Motion Sickness, Postoperative Nausea & Vomiting (PONV) Past Psychological History: Anxiety Smoking Status: Never smoker Past Alcohol Use History: Occasional Past Drug Use History: None Reported - Past Family History Father Family Medical History: Cancer Additional Family Medical History / Comment(s): cancerous polyp Mother Family Medical History: Hypertension Additional Family Medical History / Comment(s): Mother had irregular heartbeat and boarderline diabetes. Medications and Allergies Home Medications and Allergies Comment(s): GENERAL EXAM: Alert, pleasant,obese 53-year-old female on 3 liters, comfortable in no apparent distress. HEAD: Normocephalic/atraumatic. EYES: Normal reaction of pupils, equal size. Conjunctiva pink, sclera white. NOSE: Clear with pink turbinates. THROAT: No erythema or exudates. NECK: No masses, no JVD, no thyroid enlargement, no adenopathy. CHEST: No chest wall deformity. Symmetrical expansion. LUNGS: Equal air entry with bibasilar crackles CVS: Regular rate and rhythm, normal S1 and S2, no gallops, no murmurs, no rubs ABDOMEN: Soft, nontender. No hepatosplenomegaly, normal bowel sounds, no guarding or rigidity. EXTREMITIES: No clubbing, no edema, no cyanosis, 2+ pulses and upper and lower extremities. MUSCULOSKELETAL: Muscle strength and tone normal. SPINE: No scoliosis or deformity SKIN: No rashes CENTRAL NERVOUS SYSTEM: No focal deficits, tone is normal in all 4 extremities. PSYCHIATRIC: Alert and oriented -3. Appropriate affect. Intact judgment and insight. Home Medications Medication Instructions Recorded Confirmed Type Citalopram Hydrobromide [CeleXA] 40 mg PO HS 02/25/17 09/30/20 History Gabapentin 600 mg PO BID 02/25/17 09/30/20 History Cetirizine HCl [Zyrtec] 10 mg PO DAILY 11/14/17 09/30/20 History ALPRAZolam [Xanax] 0.5 mg PO HS 10/16/18 09/30/20 History Carvedilol [Coreg] 25 mg PO BID 10/16/18 09/30/20 History traZODone HCL [Desyrel] 100 mg PO HS 10/16/18 09/30/20 History Chlorthalidone [Hygroton] 25 mg PO DAILY 02/06/19 09/30/20 History Ergocalciferol (Vitamin D2) 50,000 unit PO Q30D 02/06/19 09/30/20 History [Vitamin D2] Fluticasone/Umeclidin/Vilanter 1 puff INHALATION RT-DAILY 02/06/19 09/30/20 History [Trelegy Ellipta 100-62.5-25] Montelukast Sodium [Singulair] 10 mg PO DAILY 02/06/19 09/30/20 History Allopurinol [Zyloprim] 300 mg PO HS 08/22/20 09/30/20 History Famotidine 20 mg PO DAILY 08/22/20 09/30/20 History Insulin Detemir [Levemir Flextouch] 60 units SQ HS 08/22/20 09/30/20 History Insulin Lispro [humaLOG Kwikpen] 15 unit SQ DAILY 08/22/20 09/30/20 History Isosorbide Mononitrate [Ismo] 10 mg PO DAILY 08/22/20 09/30/20 History Losartan Potassium 100 mg PO DAILY 08/22/20 09/30/20 History Semaglutide [Ozempic] 0.25 mg SQ GARCIA 08/22/20 09/30/20 History traMADol HCL [Ultram] 50 mg PO DAILY PRN 08/22/20 09/30/20 History Acetaminophen Tab [Tylenol] 650 mg PO Q6H PRN 09/30/20 09/30/20 History Albuterol Sulfate [Albuterol 2 puff PO RT-Q4H PRN 09/30/20 09/30/20 History Sulfate Hfa] Zolpidem Tartrate [Ambien] 10 mg PO HS 09/30/20 09/30/20 History cloNIDine HCL [Catapres] 0.2 mg PO BID 09/30/20 09/30/20 History hydrALAZINE HCL [Apresoline] 25 mg PO DAILY 09/30/20 09/30/20 History Allergies Allergy/AdvReac Type Severity Reaction Status Date / Time hydrocodone [From [place]] Allergy Hallucinati Verified 09/30/20 20:08 ons/vomitin g Penicillins Allergy Anaphylaxis Verified 09/30/20 20:08 Sulfa (Sulfonamide Allergy Anaphylaxis Verified 09/30/20 20:08 Antibiotics) adhesive tape AdvReac Itching/swe Verified 09/30/20 20:08 lling cephalexin [From Keflex] AdvReac Unknown Verified 09/30/20 20:08 Childhood measles, mumps, and rubella AdvReac Rash/Hives Verified 09/30/20 20:08 vaccine shellfish derived [Shrimp] AdvReac Rash/Hives Verified 09/30/20 20:08 Sxokhsq-Vvm-Ujs Reductase AdvReac Unknown Verified 09/30/20 20:08 Inhibitor Physical Exam Vitals: Vital Signs Temp Pulse Resp BP Pulse Ox 10/01/20 08:07 82 18 186/89 98 10/01/20 07:26 77 18 192/115 97 10/01/20 04:30 83 18 172/96 99 10/01/20 03:30 97.9 F 84 20 120/101 100 09/30/20 23:45 98.2 F 80 18 167/97 97 09/30/20 18:34 94 L 09/30/20 17:03 102.4 F H 103 H 18 183/98 92 L 09/30/20 15:09 102.2 F H 107 H 22 175/102 93 L Intake and Output 09/30/20 10/01/20 10/01/20 22:59 06:59 14:59 Other: Weight 104.326 kg Results - Laboratory Findings CBC and BMP: 09/30/20 15:54 09/30/20 15:54 PT/INR, D-dimer PT 9.9 sec (9.0-12.0) 09/30/20 15:54 INR 0.9 (<1.2) 09/30/20 15:54 D-Dimer 0.92 mg/L FEU (<0.60) H 09/30/20 15:54 Abnormal lab findings: Abnormal Labs 09/30/20 09/30/20 09/30/20 15:17 15:47 15:54 Plt Count 139 L Lymphocytes # 0.7 L D-Dimer BUN Creatinine Glucose Lactate Dehydrogenase Troponin I 0.056 H* C-Reactive Protein Coronavirus (PCR) Detected A 09/30/20 09/30/20 10/01/20 15:54 15:54 03:23 Plt Count Lymphocytes # D-Dimer 0.92 H BUN 39 H Creatinine 2.57 H Glucose 130 H Lactate Dehydrogenase 686 H Troponin I 0.048 H* C-Reactive Protein 205.0 H Coronavirus (PCR) Assessment and Plan Plan: #1. acute COVID 19 related pneumonia with secondary dyspnea and hypoxic respiratory failure. The patient has undergone vaccination and she received a second dose of Moderna vaccine approximately a week ago. She is coming in with constitutional symptoms and shortness of breath and mild hypoxemia and the patient's chest x-ray showing diffuse bilateral pulmonary infiltrates and inflammatory markers are elevated. Nasal PCR is positive for covid 19. Note that her symptoms also started at the same time when she received the second dose of vaccination. #2. acute hypoxic respiratory failure currently on 3 liters O2 by nasal cannula #3. History of diabetes mellitus with peripheral neuropathy and retinopathy #4. coronary artery disease with a cardiac catheterization done in 2019. Please refer to the CT that showed nonocclusive disease. #5. Hypertension #6. hyperlipidemia #7. History of chronic kidney disease, stage 4 #8. chronic bronchial asthma, moderate to severe currently on Trelegy and Proventil rescue inhaler #9. Hx of pancreatitis #10. History of gastric ulcer #11. Recurrent cephalgia #12. Vitamin D deficiency #13 chronic iron deficiency anemia #14 history of retinal damage possible retinopathy involving the left eye with impairment of vision #15 migraine #16 history of MRSA sepsis with facial cellulitis #17 gout #18 hiatal hernia Plan Titrate the FiO2 to maintain a saturation above 90% currently on 3 L Start Decadron 6 mg by mouth daily Patient already received vaccination for covid 19 Monitor inflammatory markers Remdesivir her protocol for a total of 5 days, will clear this with pharmacy knowing that the patient has stage IV kidney disease and based on her extensive comorbidities and high risk of progression, I would like to at least started on this medication with an adjusted dose Lovenox 40 mg subcu for DVT prophylaxis Monitor inflammatory markers and D dimers Resume all medications with close monitoring of the blood sugars to make sure there is no steroid-induced hyperglycemia We'll continue to follow
[2020-10-01] MEDS ORDERED: REMDESIVIR 200 MG in SODIUM CHLORIDE 0.9% 250 ML IVPB ONE (10:30)
[2020-10-01] MEDS: CHOLECALCIFEROL 25 MCG (1000 IU) TABLET PO SCH (12:18)
[2020-10-01] MEDS: ENOXAPARIN 30 MG/0.3 ML SYRINGE SQ SCH (12:18)
[2020-10-01] MEDS: ASCORBIC ACID 500 MG TAB PO SCH (12:19)
[2020-10-01] MEDS: dexAMETHasone 2 MG TAB PO SCH (12:19)
[2020-10-01] MEDS: traMADol 50 MG TAB PO PRN (12:19)
[2020-10-01] MEDS: carvediloL 12.5 MG TAB PO SCH ×2 (12:19→21:25)
[2020-10-01] MEDS: ZINC SULFATE 220 MG CAP PO SCH (12:19)
[2020-10-01 12:37] LABS: Glucose,Whole Blood 250 mg/dL (75-99)
[2020-10-01] MEDS: INSULIN ASPART (NovoLOG) 100 UNIT/ML VIAL SQ SCH ×3 (12:54→21:25)
[2020-10-01 17:55] LABS: Glucose,Whole Blood 304 mg/dL (75-99)
[2020-10-01 21:21] LABS: Glucose,Whole Blood 284 mg/dL (75-99)
[2020-10-01] MEDS: ALPRAZolam 0.5 MG TAB PO SCH (21:25)
[2020-10-01] MEDS: CITALOPRAM HYDROBROMIDE 20 MG TAB PO SCH (21:25)
[2020-10-01] MEDS: allopurinoL 300 MG TAB PO SCH (21:25)
[2020-10-01] MEDS: ZOLPIDEM 10 MG TAB PO SCH (21:25)
[2020-10-01] MEDS: GABAPENTIN 300 MG CAP PO SCH (21:25)
[2020-10-01] MEDS: cloNIDine HCL 0.2 MG TAB PO SCH (21:25)
[2020-10-01] MEDS: traZODone HCL 100 MG TAB PO SCH (21:25)
[2020-10-01] MEDS: SODIUM CHLORIDE 0.9% 1,000 ML IV SCH (21:28)
[2020-10-01] MEDS: INSULIN DETEMIR (LEVEMIR) 100 UNIT/ML SYR SQ SCH (22:11)
--- NOTE | 2020-10-01 22:12 | PN ---
PROGRESS NOTE DATE OF SERVICE: 10/01/2020 CHIEF COMPLAINT: Pneumonitis. HISTORY OF PRESENT ILLNESS: This lady is fairly stable this morning, but she is still short of breath. She has had no chest pain. She remains awake and alert. She is on nasal oxygen. PHYSICAL EXAMINATION: Chest is clear anteriorly. There are scattered rales at the bases. The cardiac exam is normal. The abdomen is protuberant. IMPRESSION: 1. COVID pneumonia. 2. Insulin-dependent diabetes mellitus. PLAN: Continue with nasal oxygen and continue to monitor her pulse ox, vital signs and blood sugars, and she will be seen by Pulmonology and Nephrology. MMODL / IJN: [id number] /
--- NOTE | 2020-10-02 05:36 | HP ---
HISTORY AND PHYSICAL CHIEF COMPLAINT: Shortness of breath. HISTORY OF PRESENT ILLNESS: This is another admission for this 55-year-old obese white female with insulin- dependent diabetes mellitus. She has one or two daughters who live with her who were diagnosed with Coronavirus and had symptoms. She then began to have a slight dry cough and shortness of breath. She came to the emergency room, where she was found to be COVID-positive with pneumonia. Interestingly, she has had two doses of the vaccine. REVIEW OF SYSTEMS: She has had no headaches, neurologic problems, chest pain, productive cough, hemoptysis, abdominal pain, nausea, vomiting. Past medical history, family history, and personal and social histories are unremarkable or noncontributory at this time. She does not smoke or drink. PHYSICAL EXAMINATION: Blood pressure was 122/73 with a pulse of 90 and regular, respirations of 36, and she was afebrile. In general she appeared to be overweight. She was awake and alert. Skin color was normal. Skin was dry. Head, ears, eyes, nose, mouth and throat were normal. Neck veins could not be assessed. Chest demonstrated scattered rales. Cardiac exam demonstrated normal sinus rhythm. The abdomen was fairly protuberant. There were no masses or tenderness. Extremities were normal. Neurologically she was intact. She is admitted to the hospital with the diagnoses: 1. COVID pneumonia. 2. Obesity. 3. Insulin-dependent diabetes mellitus. PLAN: 1. Bedrest. 2. IV fluids. 3. Nasal oxygen. 4. Pulmonology consult to manage her COVID pneumonia. MMODL / IJN: [id number] /
[2020-10-02 07:08] LABS: Glucose,Whole Blood 241 mg/dL (75-99)
[2020-10-02] MEDS: INSULIN ASPART (NovoLOG) 100 UNIT/ML VIAL SQ SCH ×5 (07:20→20:43)
[2020-10-02] MEDS ORDERED: INSULIN ASPART (NovoLOG) 100 UNIT/ML VIAL SQ SCH (09:00)
[2020-10-02] MEDS: dexAMETHasone 2 MG TAB PO SCH (10:42)
[2020-10-02] MEDS: ZINC SULFATE 220 MG CAP PO SCH (10:42)
[2020-10-02] MEDS: MONTELUKAST 10 MG TAB PO SCH (10:42)
[2020-10-02] MEDS: GABAPENTIN 300 MG CAP PO SCH ×2 (10:42→20:42)
[2020-10-02] MEDS: ENOXAPARIN 30 MG/0.3 ML SYRINGE SQ SCH (10:43)
[2020-10-02] MEDS: carvediloL 12.5 MG TAB PO SCH ×2 (10:43→20:42)
[2020-10-02] MEDS: ASCORBIC ACID 500 MG TAB PO SCH (10:43)
[2020-10-02] MEDS: cloNIDine HCL 0.2 MG TAB PO SCH ×2 (10:43→20:42)
[2020-10-02] MEDS: CHOLECALCIFEROL 25 MCG (1000 IU) TABLET PO SCH (10:43)
[2020-10-02] MEDS: hydrALAZINE HCL 25 MG TAB PO SCH (10:43)
[2020-10-02] MEDS: FAMOTIDINE 20 MG TAB PO SCH (10:45)
[2020-10-02] MEDS: CHLORTHALIDONE 25 MG TAB PO SCH (11:42)
[2020-10-02] MEDS: REMDESIVIR 100 MG in SODIUM CHLORIDE 0.9% 250 ML IVPB SCH (11:42)
[2020-10-02] MEDS: ISOSORBIDE MONONITRATE 10 MG TAB PO SCH (11:42)
[2020-10-02 12:53] VITALS: BMI 41.9
--- NOTE | 2020-10-02 13:19 | P.PN ---
Subjective Progress Note Date: 10/02/20 55-year-old female patient was already received her Moderna vaccination for COVID 19, came to the hospital because of symptoms of URI, fever of 102.2, tachycardia with some degree of hypoxemia with a pulse of 93% on room air. The patient reported that she was having fever and cough a few days duration. Patient's daughter has contracted the Covid 19 infection. The patient herself completed the vaccination approximately a week ago. She was complicated course of steroids a Z-Russel without any improvement and for that reason she came in to the emergency department. Her white cell count was at 5.8 with hemoglobin 12.9 and platelets of 139. The patient has chronic kidney disease with a BUN of 39 and a creatinine of 2.7 and the rest of the electrodes are all within normal limits. CRP is 205, LDH is 686, LFTs are within normal limits, total protein is at 7.2 with an albumin of 3.8 and the patient's lactic acid level was at 0.9. The chest x-ray showed vague infiltrates bilaterally within the mid and lower lung li consistent with developing pneumonia. Degenerative changes also seen of the dorsal spine.The patient's d-dimer was at 0.7 the patient had a perfusion scan in the emergency that showed no evidence of any pulmonary embolism. There was heterogeneous perfusion bilaterally without any significant defects. Today's evaluation of 10/02/2020 I'm seeing the patient for a follow-up. She is doing well. She was taken off the oxygen. She has progressed nicely. She is currently on Decadron. She was also started on REM and she is on day #2 of treatment. No fever for today. No other complaints. No nausea. No vomiting. No abdominal pain. No chest pain. Objective - Vital Signs Vital signs: Vital Signs Temp 97.4 F L 10/02/20 08:54 Pulse 75 10/02/20 08:54 Resp 18 10/02/20 11:42 BP 123/70 10/02/20 11:47 Pulse Ox 91 L 10/02/20 11:42 Intake & Output 10/01/20 10/02/20 10/02/20 18:59 06:59 18:59 Intake Total 120 Output Total 100 Balance -100 120 Weight 104.326 kg 104 kg 104 kg Intake: Oral 120 Output: Urine 100 Other: Voiding Method Toilet # Voids 1 - Exam GENERAL EXAM: Alert, pleasant,obese 53-year-old female on RA, comfortable in no apparent distress. HEAD: Normocephalic/atraumatic. EYES: Normal reaction of pupils, equal size. Conjunctiva pink, sclera white. NOSE: Clear with pink turbinates. THROAT: No erythema or exudates. NECK: No masses, no JVD, no thyroid enlargement, no adenopathy. CHEST: No chest wall deformity. Symmetrical expansion. LUNGS: Equal air entry with bibasilar crackles CVS: Regular rate and rhythm, normal S1 and S2, no gallops, no murmurs, no rubs ABDOMEN: Soft, nontender. No hepatosplenomegaly, normal bowel sounds, no guarding or rigidity. EXTREMITIES: No clubbing, no edema, no cyanosis, 2+ pulses and upper and lower extremities. MUSCULOSKELETAL: Muscle strength and tone normal. SPINE: No scoliosis or deformity SKIN: No rashes CENTRAL NERVOUS SYSTEM: No focal deficits, tone is normal in all 4 extremities. PSYCHIATRIC: Alert and oriented -3. Appropriate affect. Intact judgment and insight. - Labs CBC & Chem 7: 09/30/20 15:54 09/30/20 15:54 Labs: Abnormal Lab Results - Last 24 Hours (Table) 09/30/20 10/01/20 10/01/20 Range/Units 15:54 17:53 21:19 POC Glucose (mg/dL) 304 H 284 H (75-99) mg/dL Procalcitonin 0.81 H (0.02-0.09) ng/mL 10/02/20 Range/Units 07:01 POC Glucose (mg/dL) 241 H (75-99) mg/dL Procalcitonin (0.02-0.09) ng/mL Microbiology - Last 24 Hours (Table) 09/30/20 15:35 Blood Culture - Preliminary Blood No Growth after 24 hours 09/30/20 15:47 Blood Culture - Preliminary Blood No Growth after 24 hours Assessment and Plan Plan: #1. acute COVID 19 related pneumonia with secondary dyspnea and hypoxic respiratory failure. The patient has undergone vaccination and she received a second dose of Moderna vaccine approximately a week ago. She is coming in with constitutional symptoms and shortness of breath and mild hypoxemia and the patient's chest x-ray showing diffuse bilateral pulmonary infiltrates and inflammatory markers are elevated. Nasal PCR is positive for covid 19. Note that her symptoms also started at the same time when she received the second dose of vaccination. On 10/02/2020, the patient is on room air oxygen and she is improved considerably and she is doing well while on treatment with Decadron and REM day #2. #2. acute hypoxic respiratory failure currently on 3 liters O2 by nasal cannu la and this has been weaned down to room air oxygen. #3. History of diabetes mellitus with peripheral neuropathy and retinopathy #4. coronary artery disease with a cardiac catheterization done in 2019. Please refer to the CT that showed nonocclusive disease. #5. Hypertension #6. hyperlipidemia #7. History of chronic kidney disease, stage 4 #8. chronic bronchial asthma, moderate to severe currently on Trelegy and Proventil rescue inhaler #9. Hx of pancreatitis #10. History of gastric ulcer #11. Recurrent cephalgia #12. Vitamin D deficiency #13 chronic iron deficiency anemia #14 history of retinal damage possible retinopathy involving the left eye with impairment of vision #15 migraine #16 history of MRSA sepsis with facial cellulitis #17 gout #18 hiatal hernia Plan Titrate the FiO2 to room air oxygen Decadron 6 mg by mouth daily Patient already received vaccination for covid 19 and she may end up having milder disease course Monitor inflammatory markers Remdesivir her protocol for a total of 5 days, he is currently on day #2 of treatment Lovenox 40 mg subcu for DVT prophylaxis Monitor inflammatory markers and D dimers Resume all medications with close monitoring of the blood sugars to make sure there is no steroid-induced hyperglycemia, currently on Levemir 60 units along with 15 units of NovoLog with meals and his vascular coverage. We'll do further adjustments if needed. We'll monitor the blood sugars We'll continue to follow, consider early discharge specially the patient's pulse ox continues to hold above 90%. We'll continue to follow.
--- NOTE | 2020-10-02 14:56 | CDI ---
Documentation Clarification Form Date: 10/02/2020 02:42:24 PM From: Hilda SolomonBacaKANWAL rand, CCDS Admit Date: 09/30/2020 07:50:00 PM Patient Name: Alexandra Taylor Visit Number: [id number] Discharge Date: ATTENTION: The Clinical Documentation Specialists (CDI) and [facility] Coding Staff appreciate your assistance in clarifying documentation. Please respond to the clarification below the line at the bottom and electronically sign. The CDI & [facility] Coding staff will review the response and follow-up if needed. Please note: Queries are made part of the Legal Health Record. If you have any questions, please contact the author of this message via ITS. Dr. Imelda Blanc: Asthma is documented in the 10/02 Pulmonary Progress Note as "Chronic bronchial asthma, moderate to severe currently on Trelegy & Proventil rescue inhaler." History/risk factors Per the 09/30 ED Note Past Medical History: Asthma, DM, GERD, Hyperlipidemia, Hypertension, Pneumonia, CKD Stage IV, Bilateral neuropathy in feet, Previous DKA, Retinal damage with partial vision loss, Iron Deficiency Anemia, Stomach Ulcer, Bronchitis, Vit D Deficiency, Obesity, MRSA with facial cellulitis. Clinical Indicators: Presented to the ED on 09/30 with SOB, cough & chest pain. Patient's daughter has COVID-19. Both had vaccinations for COVID 19, the patient received her second dose a week ago & completed a steroid Z Russel for an upper respiratory infection. ED Clinical Impression: COVID-19, Hypoxia 09/30 ED: T 102.2, P 107, R 22, BP 175/102, PO 93 RA - 2Lnc, BMI: 41.9 09/30 LAB: Pl Ct 139, Lymph 0.7, D Dimer 0.92, BUN 39, Cr 2.57, Gluc 130, LDH 686, Trop 0.056, 0.048; CRP 205.0, Procalcitonin 0.81. 09/30 COVID-19 Positive 09/30 CXR: Vague infiltrates are seen bilaterally within the mid and lower lung zones. Correlate for developing pneumonia. 09/30 VQ Lung Scan: Negative for PE Treatment 09/30: po Hexadrol. 10/01: po Vit C, po Vit D3, Lovenox sq, po Orazinc, IV Remdesivir, Insulin sq. 10/02: po Singulair. 09/30 Resp Tx: RA - O2 2Lnc - 3Lnc. Home Meds: INH Albuterol, INH Trelegy, Ozempic sq, PO Singulair 10 mg, PO Zyrtec 10 mg daily In your professional opinion, can you please further specify the following, if known? [ ] Asthma with Acute Exacerbation [ x] Asthma without Acute Exacerbation [ ] Other, please specify ___ [ ] Unable to determine Severity: [x ] Moderate persistent [ ] Severe persistent [ ] Other, please specify ____ [ ] Unable to determine Form or Type: [ ] Cough variant [ ] Exercise induced bronchospasm [ ] Extrinsic allergic [ ] Idiosyncratic [ ] Intrinsic nonallergic [ ] Late-onset [ ] Mixed [ ] Other, please specify____ [ ] Unable to determine (Last Revision: October 2017) MTDD
[2020-10-02 16:46] LABS: Glucose,Whole Blood 259 mg/dL (75-99)
[2020-10-02 20:30] LABS: Glucose,Whole Blood 394 mg/dL (75-99)
[2020-10-02] MEDS: CITALOPRAM HYDROBROMIDE 20 MG TAB PO SCH (20:42)
[2020-10-02] MEDS: ZOLPIDEM 10 MG TAB PO SCH (20:42)
[2020-10-02] MEDS: traZODone HCL 100 MG TAB PO SCH (20:42)
[2020-10-02] MEDS: allopurinoL 300 MG TAB PO SCH (20:42)
[2020-10-02] MEDS: ALPRAZolam 0.5 MG TAB PO SCH (20:42)
[2020-10-02] MEDS: ACETAMINOPHEN TAB 325 MG TAB PO PRN (20:43)
[2020-10-02] MEDS: INSULIN DETEMIR (LEVEMIR) 100 UNIT/ML SYR SQ SCH (20:43)
[2020-10-02] MEDS: SODIUM CHLORIDE 0.9% 1,000 ML IV SCH (20:44)
[2020-10-02 22:47] LABS: Glucose,Whole Blood 309 mg/dL (75-99)
[2020-10-03 07:02] LABS: Glucose,Whole Blood 179 mg/dL (75-99)
[2020-10-03] MEDS: ENOXAPARIN 30 MG/0.3 ML SYRINGE SQ SCH (07:34)
[2020-10-03] MEDS: INSULIN ASPART (NovoLOG) 100 UNIT/ML VIAL SQ SCH ×5 (07:34→21:42)
[2020-10-03] MEDS: dexAMETHasone 2 MG TAB PO SCH (07:35)
[2020-10-03] MEDS: ISOSORBIDE MONONITRATE 10 MG TAB PO SCH (07:35)
[2020-10-03] MEDS: FAMOTIDINE 20 MG TAB PO SCH (07:35)
[2020-10-03] MEDS: GABAPENTIN 300 MG CAP PO SCH ×2 (07:35→21:37)
[2020-10-03] MEDS: carvediloL 12.5 MG TAB PO SCH ×2 (07:35→21:34)
[2020-10-03] MEDS: ZINC SULFATE 220 MG CAP PO SCH (07:35)
[2020-10-03] MEDS: CHOLECALCIFEROL 25 MCG (1000 IU) TABLET PO SCH (07:35)
[2020-10-03] MEDS: cloNIDine HCL 0.2 MG TAB PO SCH ×2 (07:36→21:36)
[2020-10-03] MEDS: ASCORBIC ACID 500 MG TAB PO SCH (07:36)
[2020-10-03] MEDS: MONTELUKAST 10 MG TAB PO SCH (07:36)
[2020-10-03] MEDS: hydrALAZINE HCL 25 MG TAB PO SCH ×2 (07:36→21:37)
[2020-10-03] MEDS: CHLORTHALIDONE 25 MG TAB PO SCH (07:36)
--- NOTE | 2020-10-03 10:54 | P.PN ---
Subjective Progress Note Date: 10/03/20 55-year-old female patient was already received her Moderna vaccination for COVID 19, came to the hospital because of symptoms of URI, fever of 102.2, tachycardia with some degree of hypoxemia with a pulse of 93% on room air. The patient reported that she was having fever and cough a few days duration. Patient's daughter has contracted the Covid 19 infection. The patient herself completed the vaccination approximately a week ago. She was complicated course of steroids a Z-Russel without any improvement and for that reason she came in to the emergency department. Her white cell count was at 5.8 with hemoglobin 12.9 and platelets of 139. The patient has chronic kidney disease with a BUN of 39 and a creatinine of 2.7 and the rest of the electrodes are all within normal limits. CRP is 205, LDH is 686, LFTs are within normal limits, total protein is at 7.2 with an albumin of 3.8 and the patient's lactic acid level was at 0.9. The chest x-ray showed vague infiltrates bilaterally within the mid and lower lung li consistent with developing pneumonia. Degenerative changes also seen of the dorsal spine.The patient's d-dimer was at 0.7 the patient had a perfusion scan in the emergency that showed no evidence of any pulmonary embolism. There was heterogeneous perfusion bilaterally without any significant defects. Today's evaluation of 10/02/2020 I'm seeing the patient for a follow-up. She is doing well. She was taken off the oxygen. She has progressed nicely. She is currently on Decadron. She was also started on REM and she is on day #2 of treatment. No fever for today. No other complaints. No nausea. No vomiting. No abdominal pain. No chest pain. The 2020, the patient is on Decadron and she is also REM day #3 regarding her Covid pneumonia. She has no complaints patient was looking great yesterday. She is currently pulse oxing 92% on room air oxygen. No new complaints otherwise for now. In terms of her blood work, the patient is having gait adequately controlled blood sugar. No other major abnormalities for now. Objective - Vital Signs Vital signs: Vital Signs Temp 97.6 F 10/03/20 06:00 Pulse 68 10/03/20 06:00 Resp 18 10/03/20 06:00 BP 161/94 10/03/20 06:00 Pulse Ox 92 L 10/03/20 06:00 Intake & Output 10/02/20 10/03/20 10/03/20 18:59 06:59 18:59 Intake Total 120 Balance 120 Weight 104 kg Intake: Oral 120 Other: Voiding Method Toilet Toilet # Voids 1 2 - Exam GENERAL EXAM: Alert, pleasant,obese 53-year-old female on RA, comfortable in no apparent distress. HEAD: Normocephalic/atraumatic. EYES: Normal reaction of pupils, equal size. Conjunctiva pink, sclera white. NOSE: Clear with pink turbinates. THROAT: No erythema or exudates. NECK: No masses, no JVD, no thyroid enlargement, no adenopathy. CHEST: No chest wall deformity. Symmetrical expansion. LUNGS: Equal air entry with bibasilar crackles CVS: Regular rate and rhythm, normal S1 and S2, no gallops, no murmurs, no rubs ABDOMEN: Soft, nontender. No hepatosplenomegaly, normal bowel sounds, no guarding or rigidity. EXTREMITIES: No clubbing, no edema, no cyanosis, 2+ pulses and upper and lower extremities. MUSCULOSKELETAL: Muscle strength and tone normal. SPINE: No scoliosis or deformity SKIN: No rashes CENTRAL NERVOUS SYSTEM: No focal deficits, tone is normal in all 4 extremities. PSYCHIATRIC: Alert and oriented -3. Appropriate affect. Intact judgment and insight. - Labs CBC & Chem 7: 09/30/20 15:54 09/30/20 15:54 Labs: Abnormal Lab Results - Last 24 Hours (Table) 10/02/20 10/02/20 10/02/20 Range/Units 16:41 20:29 22:45 POC Glucose (mg/dL) 259 H 394 H 309 H (75-99) mg/dL 10/03/20 Range/Units 07:01 POC Glucose (mg/dL) 179 H (75-99) mg/dL Microbiology - Last 24 Hours (Table) 09/30/20 15:47 Blood Culture - Preliminary Blood No Growth after 48 hours 09/30/20 15:35 Blood Culture - Preliminary Blood No Growth after 48 hours Assessment and Plan Plan: #1. acute COVID 19 related pneumonia with secondary dyspnea and hypoxic respiratory failure. The patient has undergone vaccination and she received a second dose of Moderna vaccine approximately a week ago. She is coming in with constitutional symptoms and shortness of breath and mild hypoxemia and the patient's chest x-ray showing diffuse bilateral pulmonary infiltrates and inflammatory markers are elevated. Nasal PCR is positive for covid 19. Note that her symptoms also started at the same time when she received the second dose of vaccination. On 10/02/2020, the patient is on room air oxygen and she is improved considerably and she is doing well while on treatment with Decadron and REM day #3 #2. acute hypoxic respiratory failure currently on 3 liters O2 by nasal cannula and this has been weaned down to room air oxygen.. The patientto room air oxygen yesterday and she remains on oxygen today also. #3. History of diabetes mellitus with peripheral neuropathy and retinopathy #4. coronary artery disease with a cardiac catheterization done in 2019. Please refer to the CT that showed nonocclusive disease. #5. Hypertension #6. hyperlipidemia #7. History of chronic kidney disease, stage 4 #8. chronic bronchial asthma, moderate to severe currently on Trelegy and Proventil rescue inhaler #9. Hx of pancreatitis #10. History of gastric ulcer #11. Recurrent cephalgia #12. Vitamin D deficiency #13 chronic iron deficiency anemia #14 history of retinal damage possible retinopathy involving the left eye with impairment of vision #15 migraine #16 history of MRSA sepsis with facial cellulitis #17 gout #18 hiatal hernia Plan room air oxygen Decadron 6 mg by mouth daily Patient already received vaccination for covid 19 and she may end up having milder disease course Monitor inflammatory markers Remdesivir her protocol for a total of 5 days, he is currently on day #3 of treatment Lovenox 40 mg subcu for DVT prophylaxis Monitor inflammatory markers and D dimers Resume all medications with close monitoring of the blood sugars to make sure there is no steroid-induced hyperglycemia, currently on Levemir 60 units along with 15 units of NovoLog with meals and his vascular coverage. We'll do further adjustments if needed. We'll monitor the blood sugars We'll continue to follow, Discharge is per medicine and pulmonary and critical care services we'll sign off and recommended completing Decadron a total of 10 day course on outpatient basis.
[2020-10-03] MEDS: REMDESIVIR 100 MG in SODIUM CHLORIDE 0.9% 250 ML IVPB SCH (11:10)
[2020-10-03 11:23] LABS: Glucose,Whole Blood 188 mg/dL (75-99)
[2020-10-03 16:43] LABS: Glucose,Whole Blood 247 mg/dL (75-99)
--- NOTE | 2020-10-03 17:09 | PN ---
PROGRESS NOTE CHIEF COMPLAINT: COVID pneumonia, obesity, hypertension and diabetes. HISTORY OF PRESENT ILLNESS: This lady is doing fairly well. She remains quite short of breath, but she is not worse. She has had no fever, chills, chest pain, etc. PHYSICAL EXAMINATION: Chest demonstrates decreased breath sounds with scattered rales. Cardiac exam is normal. The abdomen is protuberant, soft and nontender. IMPRESSION: 1. Covid pneumonia. 2. Insulin-dependent diabetes mellitus. 3. Obesity. PLAN: Continue with nasal O2 and slowly increase her activity. MMODL / IJN: [id number] /
--- NOTE | 2020-10-03 17:25 | PN ---
PROGRESS NOTE DATE OF SERVICE: 10/03/2020 CHIEF COMPLAINT: COVID pneumonia. HISTORY OF PRESENT ILLNESS: This lady is feeling much better. Breathing much better. Apparently during the night she became lightheaded and fell in the bathroom. She had no injuries. She is fine today. She is oriented and alert. PHYSICAL EXAMINATION: Her chest is fairly clear. Cardiac exam is normal. Abdomen is soft. IMPRESSION: 1. COVID pneumonia. 2. Hypertension. 3. Diabetes. 4. Obesity. 5. Fall. PLAN: 1. Up with caution and help. 2. Progress activity. 3. She is doing very well and might be able to go home in another day or two. MMODL / IJN: [id number] /
[2020-10-03] MEDS: LOSARTAN 50 MG TAB PO SCH (18:13)
[2020-10-03 20:05] LABS: Glucose,Whole Blood 351 mg/dL (75-99)
[2020-10-03] MEDS: SODIUM CHLORIDE 0.9% 1,000 ML IV SCH (21:32)
[2020-10-03] MEDS: ALPRAZolam 0.5 MG TAB PO SCH (21:33)
[2020-10-03] MEDS: allopurinoL 300 MG TAB PO SCH (21:33)
[2020-10-03] MEDS: traZODone HCL 100 MG TAB PO SCH (21:37)
[2020-10-03] MEDS: ZOLPIDEM 10 MG TAB PO SCH (21:37)
[2020-10-03] MEDS: CITALOPRAM HYDROBROMIDE 20 MG TAB PO SCH (21:38)
[2020-10-03] MEDS: INSULIN DETEMIR (LEVEMIR) 100 UNIT/ML SYR SQ SCH (21:42)
[2020-10-03] MEDS: traMADol 50 MG TAB PO PRN (21:50)
[2020-10-04 07:01] LABS: Glucose,Whole Blood 134 mg/dL (75-99)
[2020-10-04] MEDS: INSULIN ASPART (NovoLOG) 100 UNIT/ML VIAL SQ SCH ×5 (07:11→21:34)
[2020-10-04] MEDS: CHLORTHALIDONE 25 MG TAB PO SCH (07:12)
[2020-10-04] MEDS: LOSARTAN 50 MG TAB PO SCH (07:12)
[2020-10-04] MEDS: carvediloL 12.5 MG TAB PO SCH ×2 (07:12→21:34)
[2020-10-04] MEDS: ENOXAPARIN 30 MG/0.3 ML SYRINGE SQ SCH (07:12)
[2020-10-04] MEDS: MONTELUKAST 10 MG TAB PO SCH (07:13)
[2020-10-04] MEDS: dexAMETHasone 2 MG TAB PO SCH (07:13)
[2020-10-04] MEDS: ASCORBIC ACID 500 MG TAB PO SCH (07:13)
[2020-10-04] MEDS: GABAPENTIN 300 MG CAP PO SCH ×2 (07:13→21:35)
[2020-10-04] MEDS: ISOSORBIDE MONONITRATE 10 MG TAB PO SCH (07:14)
[2020-10-04] MEDS: cloNIDine HCL 0.2 MG TAB PO SCH ×3 (07:14→21:35)
[2020-10-04] MEDS: hydrALAZINE HCL 25 MG TAB PO SCH ×3 (07:14→21:34)
[2020-10-04] MEDS: CHOLECALCIFEROL 25 MCG (1000 IU) TABLET PO SCH (07:14)
[2020-10-04] MEDS: ZINC SULFATE 220 MG CAP PO SCH (07:14)
[2020-10-04] MEDS: FAMOTIDINE 20 MG TAB PO SCH (07:17)
[2020-10-04] MEDS: REMDESIVIR 100 MG in SODIUM CHLORIDE 0.9% 250 ML IVPB SCH (11:30)
[2020-10-04 11:42] LABS: Glucose,Whole Blood 146 mg/dL (75-99)
[2020-10-04] MEDS: traMADol 50 MG TAB PO PRN (16:13)
[2020-10-04 16:51] LABS: Glucose,Whole Blood 261 mg/dL (75-99)
[2020-10-04 20:14] LABS: Glucose,Whole Blood 431 mg/dL (75-99)
[2020-10-04] MEDS ORDERED: ACETAMINOPHEN TAB 325 MG TAB PO PRN (21:09)
[2020-10-04] MEDS ORDERED: NON FORMULARY DRUG (Semaglutide [Ozempic] 0.25 MG/0.2 ML Pen.Injctr) SQ SCH (21:15)
[2020-10-04] MEDS: SODIUM CHLORIDE 0.9% 1,000 ML IV SCH (21:32)
[2020-10-04] MEDS: INSULIN DETEMIR (LEVEMIR) 100 UNIT/ML SYR SQ SCH (21:33)
[2020-10-04] MEDS: ALPRAZolam 0.5 MG TAB PO SCH (21:34)
[2020-10-04] MEDS: allopurinoL 300 MG TAB PO SCH (21:35)
[2020-10-04] MEDS: traZODone HCL 100 MG TAB PO SCH (21:35)
[2020-10-04] MEDS: ZOLPIDEM 10 MG TAB PO SCH (21:35)
[2020-10-04] MEDS: CITALOPRAM HYDROBROMIDE 20 MG TAB PO SCH (21:35)
[2020-10-04 21:37] LABS: Basophils % (A) 0 %; Eosinophils % (A) 0 %; HGB 12.6 gm/dL (11.4-16.0); Lymphocytes # (A) 0.3 k/uL (1.0-4.8); Lymphocytes % (A) 4 %; MCH 30.5 pg (25.0-35.0); MCV 89.7 fL (80.0-100.0); Mean Platelet Volume 7.3; Monocytes # (A) 0.2 k/uL (0-1.0); Monocytes % (A) 3 %; Neutrophils # (A) 6.5 k/uL (1.3-7.7); Neutrophils % (A) 92 %; Platelet Count 234 k/uL (150-450); RBC 4.13 m/uL (3.80-5.40); RDW 13.3 % (11.5-15.5)
[2020-10-04 21:48] LABS: ALT 14 U/L (4-34); AST 15 U/L (14-36); African American GFR (CKD) 22 (>60 ml/min/1.73 sqM); Albumin 3.7 g/dL (3.5-5.0); Albumin/Globulin Ratio 1.2; Alkaline Phosphatase 84 U/L (38-126); Anion Gap 11 mmol/L; Blood Urea Nitrogen 69 mg/dL (7-17); Calcium 9.6 mg/dL (8.4-10.2); Carbon Dioxide 22 mmol/L (22-30); Chloride 100 mmol/L (98-107); Glucose 402 mg/dL (74-99); Non-African American GFR(CKD) 19 (>60 ml/min/1.73 sqM); Potassium 4.8 mmol/L (3.5-5.1); Sodium 133 mmol/L (137-145); Total Bilirubin 0.3 mg/dL (0.2-1.3); Total Protein 6.7 g/dL (6.3-8.2)
[2020-10-05] MEDS: INSULIN DETEMIR (LEVEMIR) 100 UNIT/ML SYR SQ SCH ×2 (00:15→21:38)
[2020-10-05 07:30] LABS: Glucose,Whole Blood 193 mg/dL (75-99)
[2020-10-05] MEDS: INSULIN ASPART (NovoLOG) 100 UNIT/ML VIAL SQ SCH ×5 (07:40→21:38)
[2020-10-05] MEDS: ENOXAPARIN 30 MG/0.3 ML SYRINGE SQ SCH (07:41)
[2020-10-05] MEDS: ISOSORBIDE MONONITRATE 10 MG TAB PO SCH (07:41)
[2020-10-05] MEDS: LOSARTAN 50 MG TAB PO SCH ×3 (07:42→07:45)
[2020-10-05] MEDS: GABAPENTIN 300 MG CAP PO SCH ×2 (07:42→21:37)
[2020-10-05] MEDS: hydrALAZINE HCL 25 MG TAB PO SCH ×3 (07:43→21:37)
[2020-10-05] MEDS: cloNIDine HCL 0.2 MG TAB PO SCH ×3 (07:43→21:37)
[2020-10-05] MEDS: CHLORTHALIDONE 25 MG TAB PO SCH (07:43)
[2020-10-05] MEDS: FAMOTIDINE 20 MG TAB PO SCH (07:43)
[2020-10-05] MEDS: CHOLECALCIFEROL 25 MCG (1000 IU) TABLET PO SCH (07:43)
[2020-10-05] MEDS: ASCORBIC ACID 500 MG TAB PO SCH (07:43)
[2020-10-05] MEDS: ZINC SULFATE 220 MG CAP PO SCH (07:43)
[2020-10-05] MEDS: carvediloL 12.5 MG TAB PO SCH ×2 (07:43→21:37)
[2020-10-05] MEDS: MONTELUKAST 10 MG TAB PO SCH (07:44)
[2020-10-05] MEDS: REMDESIVIR 100 MG in SODIUM CHLORIDE 0.9% 250 ML IVPB SCH (07:44)
--- NOTE | 2020-10-05 08:36 | XR ---
EXAMINATION TYPE: XR chest 1V portable DATE OF EXAM: 10/05/2020 COMPARISON: Chest x-ray 09/30/2020 HISTORY: Pneumonia TECHNIQUE: Single frontal view of the chest is obtained. FINDINGS: There is improved aeration as compared to prior exam. Cardiac mediastinal silhouette is wi thin normal limits. There is no evident pneumothorax or pleural effusion. IMPRESSION: Improvement in airspace disease.
[2020-10-05 12:05] LABS: Glucose,Whole Blood 134 mg/dL (75-99)
[2020-10-05] MEDS: traMADol 50 MG TAB PO PRN (12:06)
[2020-10-05] MEDS: dexAMETHasone 2 MG TAB PO SCH (12:07)
[2020-10-05 16:52] LABS: Glucose,Whole Blood 198 mg/dL (75-99)
--- NOTE | 2020-10-05 18:58 | PN ---
PROGRESS NOTE DATE OF SERVICE: 10/04/2020 CHIEF COMPLAINT: COVID pneumonia. HISTORY OF PRESENT ILLNESS: This lady is still having shortness of breath. She feels slight heaviness to the chest. Her blood sugars are also elevated. Blood pressure is fluctuating. PHYSICAL EXAMINATION: Breath sounds are difficult to hear. There are scattered rales. Cardiac exam is normal and the abdomen is soft and protuberant. IMPRESSION: 1. COVID pneumonia. 2. Hypertension. 3. Diabetes. 4. Chest discomfort. 5. Uncontrolled diabetes. PLAN: 1. Increase insulin. 2. Repeat laboratory studies. 3. Physical therapy. MMODL / IJN: [id number] /
--- NOTE | 2020-10-05 19:05 | PN ---
PROGRESS NOTE DATE OF SERVICE: 10/05/2020 CHIEF COMPLAINT: COVID pneumonia. HISTORY OF PRESENT ILLNESS: This lady is still having a lot of difficulty with shortness of breath. She has had no chest pain. She has had no fever or chills. PHYSICAL EXAMINATION: Chest demonstrates poor breath sounds bilaterally. Cardiac exam is normal. The abdomen is protuberant and soft. IMPRESSION: 1. COVID pneumonia with respiratory deficiency. 2. Obesity. 3. Diabetes. PLAN: 1. Increase insulin. 2. Continue to monitor her respiratory status while trying to increase activity. MMODL / IJN: [id number] /
[2020-10-05 20:53] LABS: Glucose,Whole Blood 385 mg/dL (75-99)
[2020-10-05] MEDS: CITALOPRAM HYDROBROMIDE 20 MG TAB PO SCH (21:36)
[2020-10-05] MEDS: ZOLPIDEM 10 MG TAB PO SCH (21:37)
[2020-10-05] MEDS: traZODone HCL 100 MG TAB PO SCH (21:37)
[2020-10-05] MEDS: allopurinoL 300 MG TAB PO SCH (21:38)
[2020-10-05] MEDS: ALPRAZolam 0.5 MG TAB PO SCH (21:38)
[2020-10-05] MEDS: SODIUM CHLORIDE 0.9% 1,000 ML IV SCH (21:42)
[2020-10-06 06:58] LABS: Glucose,Whole Blood 130 mg/dL (75-99)
[2020-10-06] MEDS: INSULIN ASPART (NovoLOG) 100 UNIT/ML VIAL SQ SCH ×5 (08:01→21:03)
[2020-10-06] MEDS: hydrALAZINE HCL 25 MG TAB PO SCH (08:02)
[2020-10-06] MEDS: dexAMETHasone 2 MG TAB PO SCH (08:02)
[2020-10-06] MEDS: LOSARTAN 50 MG TAB PO SCH ×2 (08:02→08:41)
[2020-10-06] MEDS: CHLORTHALIDONE 25 MG TAB PO SCH (08:02)
[2020-10-06] MEDS: carvediloL 12.5 MG TAB PO SCH ×2 (08:02→21:05)
[2020-10-06] MEDS: ENOXAPARIN 30 MG/0.3 ML SYRINGE SQ SCH (08:02)
[2020-10-06] MEDS: GABAPENTIN 300 MG CAP PO SCH ×2 (08:02→21:04)
[2020-10-06] MEDS: ASCORBIC ACID 500 MG TAB PO SCH (08:03)
[2020-10-06] MEDS: cloNIDine HCL 0.2 MG TAB PO SCH ×3 (08:03→21:05)
[2020-10-06] MEDS: CHOLECALCIFEROL 25 MCG (1000 IU) TABLET PO SCH (08:03)
[2020-10-06] MEDS: FAMOTIDINE 20 MG TAB PO SCH (08:03)
[2020-10-06] MEDS: MONTELUKAST 10 MG TAB PO SCH (08:03)
[2020-10-06] MEDS: ISOSORBIDE MONONITRATE 10 MG TAB PO SCH (08:40)
[2020-10-06] MEDS: ZINC SULFATE 220 MG CAP PO SCH (08:41)
[2020-10-06 10:44] LABS: Basophils % (A) 0 %; Eosinophils % (A) 0 %; HCT 37.1 % (34.0-46.0); HGB 12.7 gm/dL (11.4-16.0); Lymphocytes # (A) 0.4 k/uL (1.0-4.8); Lymphocytes % (A) 4 %; MCH 30.2 pg (25.0-35.0); MCHC 34.3 g/dL (31.0-37.0); MCV 87.8 fL (80.0-100.0); Monocytes # (A) 0.4 k/uL (0-1.0); Monocytes % (A) 4 %; Neutrophils # (A) 8.8 k/uL (1.3-7.7); Neutrophils % (A) 91 %; Platelet Count 269 k/uL (150-450); RBC 4.23 m/uL (3.80-5.40); RDW 13.2 % (11.5-15.5); WBC 9.7 k/uL (3.8-10.6)
[2020-10-06 10:55] LABS: ALT 13 U/L (4-34); AST 13 U/L (14-36); African American GFR (CKD) 20 (>60 ml/min/1.73 sqM); Albumin 3.2 g/dL (3.5-5.0); Albumin/Globulin Ratio 1.1; Alkaline Phosphatase 53 U/L (38-126); Anion Gap 10 mmol/L; Blood Urea Nitrogen 76 mg/dL (7-17); Calcium 9.6 mg/dL (8.4-10.2); Carbon Dioxide 24 mmol/L (22-30); Chloride 103 mmol/L (98-107); Glucose 114 mg/dL (74-99); Non-African American GFR(CKD) 17 (>60 ml/min/1.73 sqM); Potassium 4.4 mmol/L (3.5-5.1); Sodium 137 mmol/L (137-145); Total Bilirubin 0.3 mg/dL (0.2-1.3); Total Protein 6.2 g/dL (6.3-8.2)
[2020-10-06 11:24] LABS: Glucose,Whole Blood 124 mg/dL (75-99)
--- NOTE | 2020-10-06 12:35 | P.NPCON ---
History of Present Illness - Reason for Consult acute renal failure, chronic renal failure - History of Present Illness Reason for consultation: Acute kidney injury on chronic kidney disease Patient is a 55-year-old female seen in initial consultation for acute kidney injury on chronic kidney disease. Patient has chronic kidney disease stage IV secondary to diabetic kidney disease and cardiorenal syndrome with baseline creatinine near 2.5. Creatinine was 2.73 on admission and is 2.95 today. Patient presented to the hospital on 09/30/2020 with URI-lik symptoms. She did test positive for covid-19 infection. Currently maintained on steroids and zinc. A shunt has long-standing history of diabetes mellitus. She also has history of diastolic CHF. Does admit to shortness of breath especially with exertion. No vomiting or diarrhea. No fever or chills. She does have orthostatic hypotension. Her standing blood pressure has been in the range of 102/71-127/77. Has been voiding. No hematuria or dysuria. No chest pain. No family history of renal disease. Vital signs are stable. General: The patient appeared well nourished and normally developed. HEENT: Head exam is unremarkable. LUNGS: Breath sounds decreased. HEART: Rate and Rhythm are regular. ABDOMEN: Soft, nontender. EXTREMITITES: No edema. Past Medical History Past Medical History: Coronary Artery Disease (CAD), Heart Failure, Diabetes Mellitus, Eye Disorder, GERD/Reflux, Hyperlipidemia, Hypertension, Pneumonia, Renal Disease Additional Past Medical History / Comment(s): Pt tested covid+ 09/30/20 at [facility] ER. 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 History of Any Multi-Drug Resistant Organisms: MRSA Date of last positivie culture/infection: 09/29/19 MDRO Source:: TOE Past Surgical History: Section, Uterine Ablation Additional Past Surgical History / Comment(s): C/S x 4, cyst removed from forehead, EGD, left cataract with lens implant then retinal surgery d/t detachment, Lt cheek abscesses incision and drainages. Past Anesthesia/Blood Transfusion Reactions: Motion Sickness, Postoperative Nausea & Vomiting (PONV) Smoking Status: Never smoker - Past Family History Father Family Medical History: Cancer, Diabetes Mellitus Additional Family Medical History / Comment(s): cancerous polyp, prostate cancer Mother Family Medical History: Hypertension Additional Family Medical History / Comment(s): Mother had irregular heartbeat Medications and Allergies Home Medications Medication Instructions Recorded Confirmed Type Citalopram Hydrobromide [CeleXA] 40 mg PO HS 02/25/17 09/30/20 History Gabapentin 600 mg PO BID 02/25/17 09/30/20 History Cetirizine HCl [Zyrtec] 10 mg PO DAILY 11/14/17 09/30/20 History ALPRAZolam [Xanax] 0.5 mg PO HS 10/16/18 09/30/20 History Carvedilol [Coreg] 25 mg PO BID 10/16/18 09/30/20 History traZODone HCL [Desyrel] 100 mg PO HS 10/16/18 09/30/20 History Chlorthalidone [Hygroton] 25 mg PO DAILY 02/06/19 09/30/20 History Ergocalciferol (Vitamin D2) 50,000 unit PO Q30D 02/06/19 09/30/20 History [Vitamin D2] Fluticasone/Umeclidin/Vilanter 1 puff INHALATION RT-DAILY 02/06/19 09/30/20 History [Trelegy Ellipta 100-62.5-25] Montelukast Sodium [Singulair] 10 mg PO DAILY 02/06/19 09/30/20 History Allopurinol [Zyloprim] 300 mg PO HS 08/22/20 09/30/20 History Famotidine 20 mg PO DAILY 08/22/20 09/30/20 History Insulin Detemir [Levemir Flextouch] 60 units SQ HS 08/22/20 09/30/20 History Insulin Lispro [humaLOG Kwikpen] 15 unit SQ DAILY 08/22/20 09/30/20 History Isosorbide Mononitrate [Ismo] 10 mg PO DAILY 08/22/20 09/30/20 History Losartan Potassium 100 mg PO DAILY 08/22/20 09/30/20 History Semaglutide [Ozempic] 0.25 mg SQ GARCIA 08/22/20 09/30/20 History traMADol HCL [Ultram] 50 mg PO DAILY PRN 08/22/20 09/30/20 History Acetaminophen Tab [Tylenol] 650 mg PO Q6H PRN 09/30/20 09/30/20 History Albuterol Sulfate [Albuterol 2 puff PO RT-Q4H PRN 09/30/20 09/30/20 History Sulfate Hfa] Zolpidem Tartrate [Ambien] 10 mg PO HS 09/30/20 09/30/20 History cloNIDine HCL [Catapres] 0.2 mg PO BID 09/30/20 09/30/20 History hydrALAZINE HCL [Apresoline] 25 mg PO DAILY 09/30/20 09/30/20 History Allergies Allergy/AdvReac Type Severity Reaction Status Date / Time hydrocodone [From [place]] Allergy Hallucinati Verified 09/30/20 20:08 ons/vomitin g Penicillins Allergy Anaphylaxis Verified 09/30/20 20:08 Sulfa (Sulfonamide Allergy Anaphylaxis Verified 09/30/20 20:08 Antibiotics) adhesive tape AdvReac Itching/swe Verified 09/30/20 20:08 lling cephalexin [From Keflex] AdvReac Unknown Verified 09/30/20 20:08 Childhood measles, mumps, and rubella AdvReac Rash/Hives Verified 09/30/20 20:08 vaccine shellfish derived [Shrimp] AdvReac Rash/Hives Verified 09/30/20 20:08 [id number] Reductase AdvReac Unknown Verified 09/30/20 20:08 Inhibitor Physical Exam Vitals: Vital Signs Temp Pulse Resp BP BP BP BP 10/06/20 10:00 97.6 F 63 16 127/77 10/06/20 06:23 97.6 F 69 17 116/66 102/71 164/92 10/06/20 02:00 97.7 F 72 16 175/100 10/06/20 01:09 165/110 120/83 173/107 10/05/20 22:00 98.3 F 77 16 115/82 10/05/20 20:00 65 16 10/05/20 18:21 10/05/20 18:16 97.5 F L 65 16 136/78 Pulse Ox 10/06/20 10:00 96 10/06/20 06:23 94 L 10/06/20 02:00 93 L 10/06/20 01:09 10/05/20 22:00 95 10/05/20 20:00 10/05/20 18:21 96 10/05/20 18:16 95 Intake and Output 10/05/20 10/06/20 10/06/20 22:59 06:59 14:59 Other: Voiding Method Toilet # Voids 1 1 Results - Lab Results Most recent lab results Calcium 9.6 mg/dL (8.4-10.2) 10/06/20 10:26 Magnesium 1.8 mg/dL (1.6-2.3) 09/30/20 15:54 10/06/20 10:26 10/06/20 10:26 Assessment and Plan Plan: Assessment: 1. Acute kidney injury secondary to ATN secondary to COVID-19 infection. Creatinine 2.95 today. 2. Chronic kidney disease stage IV with baseline creatinine near 2-2.5 secondary to diabetic kidney disease and cardiorenal syndrome. 3. COVID-19 pneumonia maintained on steroids and zinc. 4. Diabetes mellitus. 5. Hypertension with chronic kidney disease. Does have orthostatic hypotension. Standing blood pressure stable. 6. Chronic diastolic CHF. Plan: Hold diuretics. Avoid nephrotoxins. Check renal ultrasound. Continue to monitor renal function and urine output. Thank you for the consultation. I will continue to follow the patient with you during her hospital stay
--- NOTE | 2020-10-06 13:05 | XR ---
EXAMINATION TYPE: XR chest 1V DATE OF EXAM: 10/06/2020 COMPARISON: Chest x-ray 10/05/2020 HISTORY: Shortness of breath TECHNIQUE: Single frontal view of the chest is obtained. FINDINGS: There is no focal air space opacity, pleural effusion, or pneumothorax seen. The cardiac silhouette size is within normal limits. Aorta is dense. The osseous structures are intact. IMPRESSION: No acute process.
[2020-10-06] MEDS: hydrALAZINE HCL 50 MG TAB PO SCH ×3 (13:26→21:03)
[2020-10-06 13:51] LABS: Appearance,Urine Clear (Clear); Bacteria,Urine Rare /hpf; Bilirubin,Urine Negative (Negative); Blood,Urine Negative (Negative); Color,Urine Yellow; Glucose,Urine (UA) Negative (Negative); Ketones,Urine Negative (Negative); Leukocyte Esterase,Urine Small (Negative); Mucus,Urine Rare /hpf; Nitrite,Urine Negative (Negative); PH, Urine 5.5 (5.0-8.0); Protein,Urine 2+ (Negative); RBC,Urine 1 /hpf (0-5); Specific Gravity,Urine 1.016 (1.001-1.035); Squamous Epithelial Cell,Urine 1 /hpf (0-4); Urobilinogen,Urine <2.0 mg/dL (<2.0); WBC,Urine 12 /hpf (0-5)
--- NOTE | 2020-10-06 15:19 | US ---
EXAMINATION TYPE: US kidneys/renal and bladder DATE OF EXAM: 10/06/2020 COMPARISON: Ultrasound kidneys 11/15/2017 CLINICAL HISTORY: oralia. ORALIA Exam limitations due to body habitus. EXAM MEASUREMENTS: Right Kidney: 8.1 x 4.2 x 4.3 cm Left Kidney: 10.6 x 4.4 x 4.1 cm Right Kidney: Hypoechoic area mid pole 3.6 x 3.3 x 3.2 cm has increased in size Left Kidney: Hypoechoic area mid pole 3.1 x 2.8 x 3.6 cm has increased in size and upper pole 3.6 x 2.8 x 3.2 cm. Not seen definitively on prior, possible cortical cysts Bladder: Not fully distended. Bilateral Jets seen: No Cortical echotexture appears somewhat increased on the left. No evident hydronephrosis. IMPRESSION: Atrophic right kidney has decreased in size compared to prior ultrasound, correlate for medical renal disease. Exam somewhat limited.
[2020-10-06 16:43] LABS: Glucose,Whole Blood 285 mg/dL (75-99)
[2020-10-06] MEDS: traMADol 50 MG TAB PO PRN (19:41)
[2020-10-06 20:34] LABS: Glucose,Whole Blood 390 mg/dL (75-99)
[2020-10-06] MEDS: INSULIN DETEMIR (LEVEMIR) 100 UNIT/ML SYR SQ SCH (21:03)
[2020-10-06] MEDS: CITALOPRAM HYDROBROMIDE 20 MG TAB PO SCH (21:04)
[2020-10-06] MEDS: ZOLPIDEM 10 MG TAB PO SCH (21:05)
[2020-10-06] MEDS: ALPRAZolam 0.5 MG TAB PO SCH (21:05)
[2020-10-06] MEDS: allopurinoL 300 MG TAB PO SCH (21:05)
[2020-10-06] MEDS: traZODone HCL 100 MG TAB PO SCH (21:05)
[2020-10-06] MEDS: SODIUM CHLORIDE 0.9% 1,000 ML IV SCH (21:17)
--- NOTE | 2020-10-06 21:53 | PN ---
PROGRESS NOTE DATE OF SERVICE: 10/06/2020 CHIEF COMPLAINT: COVID pneumonia. HISTORY OF PRESENT ILLNESS: This lady is doing fairly well, but she still has difficulty and feeling dizzy and weak when she stands up. Her blood pressures are generally high, and when she stands up they drop down to around 120 or 110 (only) systolically. Blood sugars are better controlled. She denies any fever, shortness of breath, palpitations, etc. PHYSICAL EXAMINATION: Chest demonstrates occasional rales but is quite clear. Cardiac exam is normal. Abdomen is soft, nontender. IMPRESSION: 1. Hypertension. 2. Orthostatic dizziness. 3. COVID pneumonia. 4. Diabetes mellitus. PLAN: Increase antihypertensives and hope that her orthostatic situation does not get worse. MMODL / IJN: [id number] /
[2020-10-07 07:11] LABS: Glucose,Whole Blood 171 mg/dL (75-99)
[2020-10-07] MEDS: INSULIN ASPART (NovoLOG) 100 UNIT/ML VIAL SQ SCH ×6 (07:37→21:23)
[2020-10-07] MEDS: ENOXAPARIN 30 MG/0.3 ML SYRINGE SQ SCH (07:37)
[2020-10-07] MEDS: LOSARTAN 50 MG TAB PO SCH (07:38)
[2020-10-07] MEDS: GABAPENTIN 300 MG CAP PO SCH ×2 (07:38→20:49)
[2020-10-07] MEDS: ISOSORBIDE MONONITRATE 10 MG TAB PO SCH (07:38)
[2020-10-07] MEDS: cloNIDine HCL 0.2 MG TAB PO SCH (07:38)
[2020-10-07] MEDS: ZINC SULFATE 220 MG CAP PO SCH (07:38)
[2020-10-07] MEDS: MONTELUKAST 10 MG TAB PO SCH (07:39)
[2020-10-07] MEDS: ASCORBIC ACID 500 MG TAB PO SCH (07:39)
[2020-10-07] MEDS: hydrALAZINE HCL 50 MG TAB PO SCH (07:39)
[2020-10-07] MEDS: carvediloL 12.5 MG TAB PO SCH ×2 (07:39→20:49)
[2020-10-07] MEDS: dexAMETHasone 2 MG TAB PO SCH (07:39)
[2020-10-07] MEDS: CHOLECALCIFEROL 25 MCG (1000 IU) TABLET PO SCH (07:39)
[2020-10-07] MEDS: FAMOTIDINE 20 MG TAB PO SCH (07:39)
[2020-10-07 09:45] LABS: African American GFR (CKD) 21.3 (60.0-200.0); Anion Gap 9.3 mmol/L (4.00-12.00); Calcium 9.4 mg/dL (8.7-10.3); Carbon Dioxide 22.7 mmol/L (21.6-31.8); Magnesium 2.1 mg/dL (1.5-2.4); Non-African American GFR(CKD) 18.4 (60.0-200.0)
--- NOTE | 2020-10-07 11:34 | P.PN ---
Subjective Patient is seen in follow-up for acute kidney injury on chronic kidney disease. Patient has chronic kidney disease stage IV secondary to diabetic kidney disease and cardiorenal syndrome with baseline creatinine near 2.5. Renal function stable. Has been voiding. States she had a syncopal episode this morning. Standing blood pressures have been on the lower side. Denies chest pain or shortness of breath. Vital signs are stable. General: The patient appeared well nourished and normally developed. HEENT: Head exam is unremarkable. Neck is without jugular venous distension. LUNGS: Breath sounds decreased. HEART: Rate and Rhythm are regular. ABDOMEN: Soft, nontender. EXTREMITITES: No clubbing, cyanosis, or edema. Objective - Vital Signs Vital signs: Vital Signs Temp 97.4 F L 10/07/20 05:16 Pulse 74 10/07/20 05:16 Resp 18 10/07/20 07:38 BP 153/78 10/07/20 05:16 Pulse Ox 96 10/07/20 05:16 Intake & Output 10/06/20 10/07/20 10/07/20 18:59 06:59 18:59 Intake Total 1080 Balance 1080 Intake: Oral 1080 Other: Voiding Method Toilet Toilet # Voids 3 2 - Labs CBC & Chem 7: 10/06/20 10:26 10/07/20 05:50 Labs: Abnormal Lab Results - Last 24 Hours (Table) 10/06/20 10/06/20 10/06/20 Range/Units 13:20 16:42 20:30 BUN (9.0-27.0) mg/dL Creatinine (0.6-1.5) mg/dL Est GFR (CKD-EPI)AfAm (60.0-200.0) Est GFR (CKD-EPI)NonAf (60.0-200.0) BUN/Creatinine Ratio (12.00-20.00) Ratio Glucose (70-110) mg/dL POC Glucose (mg/dL) 285 H 390 H (75-99) mg/dL Urine Protein 2+ H (Negative) Ur Leukocyte Esterase Small H (Negative) Urine WBC 12 H (0-5) /hpf Urine Bacteria Rare H (None) /hpf Urine Mucus Rare H (None) /hpf 10/07/20 10/07/20 Range/Units 05:50 07:05 BUN 84.0 H (9.0-27.0) mg/dL Creatinine 2.8 H (0.6-1.5) mg/dL Est GFR (CKD-EPI)AfAm 21.3 L (60.0-200.0) Est GFR (CKD-EPI)NonAf 18.4 L (60.0-200.0) BUN/Creatinine Ratio 30.00 H (12.00-20.00) Ratio Glucose 195 H (70-110) mg/dL POC Glucose (mg/dL) 171 H (75-99) mg/dL Urine Protein (Negative) Ur Leukocyte Esterase (Negative) Urine WBC (0-5) /hpf Urine Bacteria (None) /hpf Urine Mucus (None) /hpf Microbiology - Last 24 Hours (Table) 09/30/20 15:47 Blood Culture - Final Blood No Growth after 144 hours 09/30/20 15:35 Blood Culture - Final Blood No Growth after 144 hours Assessment and Plan Plan: Assessment: 1. Acute kidney injury secondary to ATN secondary to COVID-19 infection. Creatinine stable at 2.8 today. No hydronephrosis noted on kidney ultrasound. Left kidney atrophic. 2. Chronic kidney disease stage IV with baseline creatinine near 2-2.5 secondary to diabetic kidney disease and cardiorenal syndrome. 3. COVID-19 pneumonia maintained on steroids and zinc. 4. Diabetes mellitus. 5. Hypertension with chronic kidney disease. Does have orthostatic hypotension. Standing blood pressure stable. 6. Chronic diastolic CHF. 7. Left atrophic kidney. Plan: Hold diuretics. Monitor orthostatics. If standing blood pressure less than 120 systolic, hold hydralazine. Avoid nephrotoxins. Continue to monitor renal function and urine output.
[2020-10-07 12:03] LABS: Glucose,Whole Blood 210 mg/dL (75-99)
--- NOTE | 2020-10-07 12:17 | P.CNNES ---
History of Present Illness Consult date: 10/07/20 Requesting physician: Robbie Nieves Reason for Consult: syncopal episode History of Present Illness: This is a 55-year-old woman with chronic kidney insufficiency, hypertension (for couple years) diabetes mellitus (for 22 years) who presented emergency department on 09/30/2020 for fever and cough for the last 2-3 days. Neurology was consulted for syncopal episode on 10/07/2020. Per the patient's nurse, today around 10:15am today the patient was in bed then was stood up and took a few steps then felt light dizzy then passed out lasting 1-2 minute. She was accompanied with PT/OT while this happened and was told no jerking of any extremity. Patient denies bowel incontinence or tongue bite. The patient s tated for the last 3 days while standing up she has been feeling dizzy. Per the patient she denies of any headache, visual disturbnace, focal weakness, numbness or difficulty getting her words out. She denies of any seizures or passing out episodes in the past. She said her HbA1c a couple weeks ago was <5.0. During this hospital say she had orthostatic blood pressure on 10/06/2020 and showed S upine was 173/107; sitting is 165/110 and standing is 120/83. She is on multiple blood pressure medication during hospital stay: Clonidine 0.2mg 1 tab tid; hydralazine 100mg 1 tab tid; lorsartan 100mg daily; Isosorbibd mononitrate 100mg daily (she was discontinued off hydralazine 25mg 1 tab tid). It Seem to the patient received Moderna vaccination for COVID 19 and completed her vaccination a week ago prior to presentation. She came to the hospital for upper respiratory tract infection with a fever of 102.2, tachycardia and some degree of hypoxemia with a pulse ox of 93 at room air. He seems that the patient daughter contacted the Covid 19 infection. Her most recent vitals is blood pressure of 153/78, heart rate is 74, respiratory of 18, temperature of 97.4 Fahrenheit oral pulse ox of 96% room air. Chest x-ray on 09/30/2020 it is reported as vague infiltrates area seen bilaterally within the mild and lower lung zones. Correlate for developing pneumonia. White blood cell has been in the normal range and the last one was 9.7 on 10/06/2020. On initial presentation the patient's the creatinine is 2.57 and most recent is 2.8. Also was 9.6 was considered normal. The latest AST is 13 and the ALT is 13 was considered normal. Patient the lou virus PCR was positive on 09/30/2020 Review of Systems Review of system: The 12 point system was reviewed and apparent positive and negative per HPI. Past Medical History Past Medical History: Coronary Artery Disease (CAD), Heart Failure, Diabetes Me llitus, Eye Disorder, GERD/Reflux, Hyperlipidemia, Hypertension, Pneumonia, Renal Disease Additional Past Medical History / Comment(s): Pt tested covid+ 09/30/20 at [facility] ER. 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 History of Any Multi-Drug Resistant Organisms: MRSA Date of last positivie culture/infection: 09/29/19 MDRO Source:: TOE Past Surgical History: Section, Uterine Ablation Additional Past Surgical History / Comment(s): C/S x 4, cyst removed from f orehead, EGD, left cataract with lens implant then retinal surgery d/t detachment, Lt cheek abscesses incision and drainages. Past Anesthesia/Blood Transfusion Reactions: Motion Sickness, Postoperative Nausea & Vomiting (PONV) Smoking Status: Never smoker - Past Family History Father Family Medical History: Cancer, Diabetes Mellitus Additional Family Medical History / Comment(s): cancerous polyp, prostate cancer Mother Family Medical History: Hypertension Additional Family Medical History / Comment(s): Mother had irregular heartbeat Medications and Allergies Home Medications Medication Instructions Recorded Confirmed Type Citalopram Hydrobromide [CeleXA] 40 mg PO HS 02/25/17 09/30/20 History Gabapentin 600 mg PO BID 02/25/17 09/30/20 History Cetirizine HCl [Zyrtec] 10 mg PO DAILY 11/14/17 09/30/20 History ALPRAZolam [Xanax] 0.5 mg PO HS 10/16/18 09/30/20 History Carvedilol [Coreg] 25 mg PO BID 10/16/18 09/30/20 History traZODone HCL [Desyrel] 100 mg PO HS 10/16/18 09/30/20 History Chlorthalidone [Hygroton] 25 mg PO DAILY 02/06/19 09/30/20 History Ergocalciferol (Vitamin D2) 50,000 unit PO Q30D 02/06/19 09/30/20 History [Vitamin D2] Fluticasone/Umeclidin/Vilanter 1 puff INHALATION RT-DAILY 02/06/19 09/30/20 History [Trelegy Ellipta 100-62.5-25] Montelukast Sodium [Singulair] 10 mg PO DAILY 02/06/19 09/30/20 History Allopurinol [Zyloprim] 300 mg PO HS 08/22/20 09/30/20 History Famotidine 20 mg PO DAILY 08/22/20 09/30/20 History Insulin Detemir [Levemir Flextouch] 60 units SQ HS 08/22/20 09/30/20 History Insulin Lispro [humaLOG Kwikpen] 15 unit SQ DAILY 08/22/20 09/30/20 History Isosorbide Mononitrate [Ismo] 10 mg PO DAILY 08/22/20 09/30/20 History Losartan Potassium 100 mg PO DAILY 08/22/20 09/30/20 History Semaglutide [Ozempic] 0.25 mg SQ GARCIA 08/22/20 09/30/20 History traMADol HCL [Ultram] 50 mg PO DAILY PRN 08/22/20 09/30/20 History Acetaminophen Tab [Tylenol] 650 mg PO Q6H PRN 09/30/20 09/30/20 History Albuterol Sulfate [Albuterol 2 puff PO RT-Q4H PRN 09/30/20 09/30/20 History Sulfate Hfa] Zolpidem Tartrate [Ambien] 10 mg PO HS 09/30/20 09/30/20 History cloNIDine HCL [Catapres] 0.2 mg PO BID 09/30/20 09/30/20 History hydrALAZINE HCL [Apresoline] 25 mg PO DAILY 09/30/20 09/30/20 History Allergies Allergy/AdvReac Type Severity Reaction Status Date / Time hydrocodone [From [place]] Allergy Hallucinati Verified 09/30/20 20:08 ons/vomitin g Penicillins Allergy Anaphylaxis Verified 09/30/20 20:08 Sulfa (Sulfonamide Allergy Anaphylaxis Verified 09/30/20 20:08 Antibiotics) adhesive tape AdvReac Itching/swe Verified 09/30/20 20:08 lling cephalexin [From Keflex] AdvReac Unknown Verified 09/30/20 20:08 Childhood measles, mumps, and rubella AdvReac Rash/Hives Verified 09/30/20 20:08 vaccine shellfish derived [Shrimp] AdvReac Rash/Hives Verified 09/30/20 20:08 Kzudjru-[id number]-Tmt Reductase AdvReac Unknown Verified 09/30/20 20:08 Inhibitor Physical Examination - Vital Signs Vital Signs: Vital Signs Temp Pulse Resp BP BP Pulse Ox 10/07/20 07:38 18 10/07/20 05:16 97.4 F L 74 18 153/78 96 10/07/20 02:01 97.7 F 71 17 152/84 96 10/06/20 22:00 98.1 F 74 16 161/95 94 L 10/06/20 20:00 77 19 10/06/20 18:00 98.6 F 77 19 132/80 93 L 10/06/20 14:00 97.7 F 71 16 98/63 94 L Intake and Output 10/06/20 10/07/20 10/07/20 22:59 06:59 14:59 Intake Total 1080 Balance 1080 Intake: Oral 1080 Other: Voiding Method Toilet Toilet # Voids 3 2 GENERAL: The patient is lying in bed and is not in acute distress. CHEST: The heart rate is regular rate rhythm. No murmurs to auscultation. LUNG: Clear to auscultation bilaterally no wheezing noted throughout. Not labored breathing. ABDOMEN/GI: Bowel sounds present in all 4 quadrants. No tenderness to palpation throughout. NEUROLOGICAL: Higher mental function: The patient is awake, alert, oriented to self, place and time. Patient is following commands. No aphasia and no neglect. Cranial nerves: The pupils are round, equal and reactive to light and accommodation. Visual li are full to confrontation throughout. Extraocular movement is intact no nystagmus is noted. Facial sensation is normal to touch throughout. The facial strength is normal throughout. Hearing is normal bilaterally to hand rub. Tongue is midline and moved [id number] without any difficulty. No dysarthria is noted. Shoulder shrug is normal bilaterally. Motor: Gait is deferred. The strength is 5 over 5 throughout. Normal tone and bulk. Cerebellum: Normal finger to nose heel to chin bilaterally. Sensation: Sensation is normal to touch throughout. Reflexes (right/left):2+ throughout. Plantars are downgoing bilaterally. Results - Laboratory Findings CBC and BMP: 10/06/20 10:26 10/07/20 05:50 Abnormal Lab Findings: Abnormal Labs 09/30/20 09/30/20 09/30/20 15:17 15:47 15:54 Plt Count 139 L Neutrophils # Lymphocytes # 0.7 L D-Dimer Sodium BUN Creatinine Est GFR (CKD-EPI)AfAm Est GFR (CKD-EPI)NonAf BUN/Creatinine Ratio Glucose POC Glucose (mg/dL) AST Lactate Dehydrogenase Troponin I 0.056 H* C-Reactive Protein Total Protein Albumin Procalcitonin Urine Protein Ur Leukocyte Esterase Urine WBC Urine Bacteria Urine Mucus Coronavirus (PCR) Detected A 09/30/20 09/30/20 09/30/20 15:54 15:54 15:54 Plt Count Neutrophils # Lymphocytes # D-Dimer 0.92 H Sodium BUN 39 H Creatinine 2.57 H Est GFR (CKD-EPI)AfAm Est GFR (CKD-EPI)NonAf BUN/Creatinine Ratio Glucose 130 H POC Glucose (mg/dL) AST Lactate Dehydrogenase 686 H Troponin I C-Reactive Protein 205.0 H Total Protein Albumin Procalcitonin 0.81 H Urine Protein Ur Leukocyte Esterase Urine WBC Urine Bacteria Urine Mucus Coronavirus (PCR) 10/01/20 10/01/20 10/01/20 03:23 12:34 17:53 Plt Count Neutrophils # Lymphocytes # D-Dimer Sodium BUN Creatinine Est GFR (CKD-EPI)AfAm Est GFR (CKD-EPI)NonAf BUN/Creatinine Ratio Glucose POC Glucose (mg/dL) 250 H 304 H AST Lactate Dehydrogenase Troponin I 0.048 H* C-Reactive Protein Total Protein Albumin Procalcitonin Urine Protein Ur Leukocyte Esterase Urine WBC Urine Bacteria Urine Mucus Coronavirus (PCR) 10/01/20 10/02/20 10/02/20 21:19 07:01 16:41 Plt Count Neutrophils # Lymphocytes # D-Dimer Sodium BUN Creatinine Est GFR (CKD-EPI)AfAm Est GFR (CKD-EPI)NonAf BUN/Creatinine Ratio Glucose POC Glucose (mg/dL) 284 H 241 H 259 H AST Lactate Dehydrogenase Troponin I C-Reactive Protein Total Protein Albumin Procalcitonin Urine Protein Ur Leukocyte Esterase Urine WBC Urine Bacteria Urine Mucus Coronavirus (PCR) 10/02/20 10/02/20 10/03/20 20:29 22:45 07:01 Plt Count Neutrophils # Lymphocytes # D-Dimer Sodium BUN Creatinine Est GFR (CKD-EPI)AfAm Est GFR (CKD-EPI)NonAf BUN/Creatinine Ratio Glucose POC Glucose (mg/dL) 394 H 309 H 179 H AST Lactate Dehydrogenase Troponin I C-Reactive Protein Total Protein Albumin Procalcitonin Urine Protein Ur Leukocyte Esterase Urine WBC Urine Bacteria Urine Mucus Coronavirus (PCR) 10/03/20 10/03/20 10/03/20 11:22 16:41 20:04 Plt Count Neutrophils # Lymphocytes # D-Dimer Sodium BUN Creatinine Est GFR (CKD-EPI)AfAm Est GFR (CKD-EPI)NonAf BUN/Creatinine Ratio Glucose POC Glucose (mg/dL) 188 H 247 H 351 H AST Lactate Dehydrogenase Troponin I C-Reactive Protein Total Protein Albumin Procalcitonin Urine Protein Ur Leukocyte Esterase Urine WBC Urine Bacteria Urine Mucus Coronavirus (PCR) 10/04/20 10/04/20 10/04/20 06:59 11:40 16:50 Plt Count Neutrophils # Lymphocytes # D-Dimer Sodium BUN Creatinine Est GFR (CKD-EPI)AfAm Est GFR (CKD-EPI)NonAf BUN/Creatinine Ratio Glucose POC Glucose (mg/dL) 134 H 146 H 261 H AST Lactate Dehydrogenase Troponin I C-Reactive Protein Total Protein Albumin Procalcitonin Urine Protein Ur Leukocyte Esterase Urine WBC Urine Bacteria Urine Mucus Coronavirus (PCR) 10/04/20 10/04/20 10/04/20 20:13 21:20 21:20 Plt Count Neutrophils # Lymphocytes # 0.3 L D-Dimer Sodium 133 L BUN 69 H Creatinine 2.73 H Est GFR (CKD-EPI)AfAm Est GFR (CKD-EPI)NonAf BUN/Creatinine Ratio Glucose 402 H POC Glucose (mg/dL) 431 H AST Lactate Dehydrogenase Troponin I C-Reactive Protein Total Protein Albumin Procalcitonin Urine Protein Ur Leukocyte Esterase Urine WBC Urine Bacteria Urine Mucus Coronavirus (PCR) 10/05/20 10/05/20 10/05/20 07:29 12:02 16:50 Plt Count Neutrophils # Lymphocytes # D-Dimer Sodium BUN Creatinine Est GFR (CKD-EPI)AfAm Est GFR (CKD-EPI)NonAf BUN/Creatinine Ratio Glucose POC Glucose (mg/dL) 193 H 134 H 198 H AST Lactate Dehydrogenase Troponin I C-Reactive Protein Total Protein Albumin Procalcitonin Urine Protein Ur Leukocyte Esterase Urine WBC Urine Bacteria Urine Mucus Coronavirus (PCR) 10/05/20 10/06/20 10/06/20 20:51 06:57 10:26 Plt Count Neutrophils # 8.8 H Lymphocytes # 0.4 L D-Dimer Sodium BUN Creatinine Est GFR (CKD-EPI)AfAm Est GFR (CKD-EPI)NonAf BUN/Creatinine Ratio Glucose POC Glucose (mg/dL) 385 H 130 H AST Lactate Dehydrogenase Troponin I C-Reactive Protein Total Protein Albumin Procalcitonin Urine Protein Ur Leukocyte Esterase Urine WBC Urine Bacteria Urine Mucus Coronavirus (PCR) 10/06/20 10/06/20 10/06/20 10:26 11:23 13:20 Plt Count Neutrophils # Lymphocytes # D-Dimer Sodium BUN 76 H Creatinine 2.95 H Est GFR (CKD-EPI)AfAm Est GFR (CKD-EPI)NonAf BUN/Creatinine Ratio Glucose 114 H POC Glucose (mg/dL) 124 H AST 13 L Lactate Dehydrogenase Troponin I C-Reactive Protein Total Protein 6.2 L Albumin 3.2 L Procalcitonin Urine Protein 2+ H Ur Leukocyte Esterase Small H Urine WBC 12 H Urine Bacteria Rare H Urine Mucus Rare H Coronavirus (PCR) 10/06/20 10/06/20 10/07/20 16:42 20:30 05:50 Plt Count Neutrophils # Lymphocytes # D-Dimer Sodium BUN 84.0 H Creatinine 2.8 H Est GFR (CKD-EPI)AfAm 21.3 L Est GFR (CKD-EPI)NonAf 18.4 L BUN/Creatinine Ratio 30.00 H Glucose 195 H POC Glucose (mg/dL) 285 H 390 H AST Lactate Dehydrogenase Troponin I C-Reactive Protein Total Protein Albumin Procalcitonin Urine Protein Ur Leukocyte Esterase Urine WBC Urine Bacteria Urine Mucus Coronavirus (PCR) 10/07/20 07:05 Plt Count Neutrophils # Lymphocytes # D-Dimer Sodium BUN Creatinine Est GFR (CKD-EPI)AfAm Est GFR (CKD-EPI)NonAf BUN/Creatinine Ratio Glucose POC Glucose (mg/dL) 171 H AST Lactate Dehydrogenase Troponin I C-Reactive Protein Total Protein Albumin Procalcitonin Urine Protein Ur Leukocyte Esterase Urine WBC Urine Bacteria Urine Mucus Coronavirus (PCR) Assessment and Plan Assessment: This is a 55-year-old woman ho presented emergency department on 09/30/2020 for fever and cough for the last 2-3 days. She was found to have COVID 19+. Syncopal episode. Due to Orthostatic hypotensive. Acute pneumonia due to Covid 19 Acute on chronic kidney insufficiency Hypertension and is on multiple medication Diabetes mellitus Obesity Plan: We will not get as an EEG since this is not a seizure and seems more orthostatic. Also there is no EEG techs for today. If the patient continues to have syncopal episodes I will consider getting a routine EEG to rule out any underlying seizure or Oleksandr discharges I ordered the CT of the head without contrast. I ordered repeat orthostatic with blood pressure as well as heart rate. Because of the uncontrolled hypertension and positive orthostatic, I recommend possible getting cardiology on board. The plan is discussed with the patient nurse. Thank you for the consultation. Jeremy Hernandez MD Neuro-hospitalist Time with Patient: Greater than 30
--- NOTE | 2020-10-07 12:51 | CT ---
EXAMINATION TYPE: CT brain wo con DATE OF EXAM: 10/07/2020 COMPARISON: None HISTORY: Dizziness Unenhanced CT of the brain was performed. The ventricles, basal cisterns and sulci overlying the cerebral convexities demonstrate mild enlargem ent. There is no evidence for intracranial hemorrhage or sulcal effacement. There is decreased attenuation about the periventricular white matter and deep white matter of both c erebral hemispheres, compatible with chronic small vessel ischemia. Differential diagnosis does inclu de demyelination. No mass effects are seen.No midline shift. Osseous calvarium is intact. If symptoms persist consider MRI. IMPRESSION: 1. Age related atrophic and chronic small vessel ischemic change without acute intracranial process s een at this time.
[2020-10-07] MEDS: cloNIDine HCL 0.1 MG TAB PO SCH ×2 (15:20→20:51)
[2020-10-07] MEDS: ACETAMINOPHEN TAB 325 MG TAB PO PRN (16:48)
[2020-10-07 16:50] LABS: Glucose,Whole Blood 183 mg/dL (75-99)
--- NOTE | 2020-10-07 18:27 | PN ---
PROGRESS NOTE CHIEF COMPLAINT: COVID pneumonia. HISTORY OF PRESENT ILLNESS: This lady is doing fairly well. Her blood pressure is improved over yesterday, but today she got up and went to the bathroom and passed out. Her orthostatic blood pressures have dropped quite low with a systolic in the 70s. PHYSICAL EXAM: Her chest demonstrates occasional rales. Cardiac exam are normal. The abdomen is protuberant and soft. IMPRESSION: 1. Hypertension. 2. Orthostatic hypotension. 3. COVID pneumonia. PLAN: Dramatically decrease her antihypertensive medications and keep her at bedrest with bedside commode until she is more stable. MMODL / IJN: [id number] /
[2020-10-07] MEDS: ALPRAZolam 0.5 MG TAB PO SCH (20:48)
[2020-10-07] MEDS: ZOLPIDEM 10 MG TAB PO SCH (20:48)
[2020-10-07] MEDS: traZODone HCL 100 MG TAB PO SCH (20:48)
[2020-10-07] MEDS: INSULIN DETEMIR (LEVEMIR) 100 UNIT/ML SYR SQ SCH (20:48)
[2020-10-07] MEDS: CITALOPRAM HYDROBROMIDE 20 MG TAB PO SCH (20:48)
[2020-10-07] MEDS: allopurinoL 300 MG TAB PO SCH (20:49)
[2020-10-07 21:02] LABS: Glucose,Whole Blood 294 mg/dL (75-99)
[2020-10-08] MEDS: SODIUM CHLORIDE 0.9% 1,000 ML IV SCH ×2 (00:58→21:12)
[2020-10-08 07:00] LABS: Glucose,Whole Blood 159 mg/dL (75-99)
[2020-10-08] MEDS: INSULIN ASPART (NovoLOG) 100 UNIT/ML VIAL SQ SCH ×5 (07:37→21:09)
[2020-10-08] MEDS: ENOXAPARIN 30 MG/0.3 ML SYRINGE SQ SCH (07:37)
[2020-10-08] MEDS: GABAPENTIN 300 MG CAP PO SCH ×2 (07:38→21:11)
[2020-10-08] MEDS: ZINC SULFATE 220 MG CAP PO SCH (07:38)
[2020-10-08] MEDS: ISOSORBIDE MONONITRATE 10 MG TAB PO SCH (07:38)
[2020-10-08] MEDS: FAMOTIDINE 20 MG TAB PO SCH (07:38)
[2020-10-08] MEDS: CHOLECALCIFEROL 25 MCG (1000 IU) TABLET PO SCH (07:38)
[2020-10-08] MEDS: carvediloL 12.5 MG TAB PO SCH ×2 (07:39→21:10)
[2020-10-08] MEDS: ASCORBIC ACID 500 MG TAB PO SCH (07:39)
[2020-10-08] MEDS: cloNIDine HCL 0.1 MG TAB PO SCH ×2 (07:39→21:11)
[2020-10-08] MEDS: MONTELUKAST 10 MG TAB PO SCH (07:39)
[2020-10-08] MEDS: dexAMETHasone 2 MG TAB PO SCH (07:39)
[2020-10-08] MEDS ORDERED: LOSARTAN 50 MG TAB PO SCH (09:00)
[2020-10-08 11:35] LABS: Glucose,Whole Blood 315 mg/dL (75-99)
--- NOTE | 2020-10-08 11:38 | P.PN ---
Subjective Patient is seen in follow-up for acute kidney injury on chronic kidney disease. Patient has chronic kidney disease stage IV secondary to diabetic kidney disease and cardiorenal syndrome with baseline creatinine near 2.5. Renal function stable as of yesterday. Has been voiding. No further dizziness or syncopal episodes. Denies chest pain or shortness of breath. Vital signs are stable. General: The patient appeared well nourished and normally developed. HEENT: Head exam is unremarkable. Neck is without jugular venous distension. LUNGS: Breath sounds decreased. HEART: Rate and Rhythm are regular. ABDOMEN: Soft, nontender. EXTREMITITES: No edema. Objective - Vital Signs Vital signs: Vital Signs Temp 97.4 F L 10/08/20 09:34 Pulse 65 10/08/20 09:34 Resp 18 10/08/20 09:34 BP 156/74 10/08/20 09:34 Pulse Ox 94 L 10/08/20 09:34 Intake & Output 10/07/20 10/08/20 10/08/20 18:59 06:59 18:59 Weight 104 kg Other: Voiding Method Toilet Toilet # Voids 2 0 - Labs CBC & Chem 7: 10/06/20 10:26 10/07/20 05:50 Labs: Abnormal Lab Results - Last 24 Hours (Table) 10/07/20 10/07/20 10/07/20 Range/Units 11:59 16:45 20:59 POC Glucose (mg/dL) 210 H 183 H 294 H (75-99) mg/dL 10/08/20 Range/Units 06:56 POC Glucose (mg/dL) 159 H (75-99) mg/dL Assessment and Plan Plan: Assessment: 1. Acute kidney injury secondary to ATN secondary to COVID-19 infection. Creatinine stable at 2.8 as of yesterday. No hydronephrosis noted on kidney ultrasound. Left kidney atrophic. 2. Chronic kidney disease stage IV with baseline creatinine near 2-2.5 secondary to diabetic kidney disease and cardiorenal syndrome. 3. COVID-19 pneumonia maintained on steroids and zinc. 4. Diabetes mellitus. 5. Hypertension with chronic kidney disease. Does have orthostatic hypotension. 6. Chronic diastolic CHF. 7. Left atrophic kidney. Plan: Hold diuretics. Monitor orthostatics. If standing blood pressure less than 120 systolic, hold hydralazine. Avoid nephrotoxins. Continue to monitor renal function and urine output. No changes from nephrology standpoint today.
--- NOTE | 2020-10-08 13:21 | P.CRDCN ---
History of Present Illness History of present illness: HISTORY OF PRESENTING ILLNESS This is a pleasant 55-year-old female past medical history significant for type 2 diabetes, hypertension, hyperlipidemia, chronic kidney disease, non obstructive coronary artery disease. She follows in the office with Dr. Kenny. We have been asked to see in consultation for syncope. Yesterday patient was walking to the bathroom with occupational therapy and had a syncopal episode, she was lowered to the floor. When sitting on the floor, patient did not recall the event. Patient did not lose consciousness. Orthostatics were positive Supine BP 139/87 HR 70, Sitting BP 112/67 HR 73, and Standing BP 70/51 HR 79. Vital signs reviewed, Patient has been orthostatic prior to this event. Patient was admitted to the hospital with dry cough and shortness of breath, she was found to be COVID-19 positive with pneumonia. Patient denies chest pain, palpitations, fatigue, or weakness. Laboratory data reviewed, sodium 135, potassium 4.0, serum creatinine 2.8, BUN 34, magnesium 2.1, Vital signs blood pressure 156/74, heart rate 65, afebrile maintaining oxygen saturations on room air. Telemetry tracings indicate sinus mechanism HR 60s-70s, no arrhythmia noted. CT Brain- age related atrophic and chronic small vessel ischemic change without acute intracranial process seen. Chest x-ray revealed improved aeration as compared to prior exam. Most recent echocardiogram 12/2018 left ventricular systolic function is normal with an EF between 5560 percent. Severe concentric left ventricular hypertrophy, RV is mildly enlarged, mild MR, mild TR, RVSP 39.46mmHg. Last cardiac catheterization 02/[address] Kenny revealed intermediate severe disease involving the mid left circumflex and mid LAD Current home cardiac medications include carvedilol 25 mg twice a day, clonidine 0.2 mg 3 times a day, Isosorbide mononitrate 10 mg daily, losartan 100 mg daily Current inpatient cardiac medications include carvedilol 12.5 mg twice a day, clonidine 0.1 mg 3 times a day, Isosorbide mononitrate 10 mg daily, losartan 100 mg daily REVIEW OF SYSTEMS At the time of my exam: CONSTITUTIONAL: Denies fever or chills. CARDIOVASCULAR: Denies chest pain, shortness of breath, orthopnea, PND or palpitations. RESPIRATORY: Denies cough. GASTROINTESTINAL: Denies abdominal pain, diarrhea, constipation, nausea or vomiting. MUSCULOSKELETAL: Denies myalgias. NEUROLOGIC: Denies numbness, tingling, headacbe or weakness. ENDOCRINE: Denies fatigue, weight change, polydipsia or polyurina. GENITOURINARY: Denies burning, hematuria or urgency with micturation. HEMATOLOGIC: Denies history of anemia or bleeding. PHYSICAL EXAMINATION Patient seen, thorough Physical examination not performed due to covid-19 infection, chart reviewed. ASSESSMENT Orthostatic Hypotension Syncope most likely related to volume depletion, possible diabetic autonomic neuropathy component. No arrhythmia noted on telemetry. Covid-19 Pneumonia Nonobstructive coronary artery disease s/p cardiac catheterization 02/2019 which revealed intermediate severe disease involving the mid left circumflex and mid LAD Type 2 Diabetes Hypertension Hyperlipidemia PLAN Decrease clonidine to 0.1mg BID Decrease Losartan to 50mg daily Continue carvedilol 12.5mg BID Will obtain 2D echo and doppler study to assess cardiac structure and function Continue cardiac telemetry Further recommendations pending patient's cardiac workup and hospital course Nurse Practitioner note has been reviewed, I agree with a documented findings and plan of care. Patient was seen and examined. Past Medical History Past Medical History: Coronary Artery Disease (CAD), Heart Failure, Diabetes Mellitus, Eye Disorder, GERD/Reflux, Hyperlipidemia, Hypertension, Pneumonia, Renal Disease Additional Past Medical History / Comment(s): Pt tested covid+ 09/30/20 at [facility] ER. 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 History of Any Multi-Drug Resistant Organisms: MRSA Date of last positivie culture/infection: 09/29/19 MDRO Source:: TOE Past Surgical History: Section, Uterine Ablation Additional Past Surgical History / Comment(s): C/S x 4, cyst removed from forehead, EGD, left cataract with lens implant then retinal surgery d/t detachment, Lt cheek abscesses incision and drainages. Past Anesthesia/Blood Transfusion Reactions: Motion Sickness, Postoperative Nausea & Vomiting (PONV) Smoking Status: Never smoker - Past Family History Father Family Medical History: Cancer, Diabetes Mellitus Additional Family Medical History / Comment(s): cancerous polyp, prostate cancer Mother Family Medical History: Hypertension Additional Family Medical History / Comment(s): Mother had irregular heartbeat Medications and Allergies Home Medications Medication Instructions Recorded Confirmed Type Citalopram Hydrobromide [CeleXA] 40 mg PO HS 02/25/17 09/30/20 History Gabapentin 600 mg PO BID 02/25/17 09/30/20 History Cetirizine HCl [Zyrtec] 10 mg PO DAILY 11/14/17 09/30/20 History ALPRAZolam [Xanax] 0.5 mg PO HS 10/16/18 09/30/20 History Carvedilol [Coreg] 25 mg PO BID 10/16/18 09/30/20 History traZODone HCL [Desyrel] 100 mg PO HS 10/16/18 09/30/20 History Chlorthalidone [Hygroton] 25 mg PO DAILY 02/06/19 09/30/20 History Ergocalciferol (Vitamin D2) 50,000 unit PO Q30D 02/06/19 09/30/20 History [Vitamin D2] Fluticasone/Umeclidin/Vilanter 1 puff INHALATION RT-DAILY 02/06/19 09/30/20 History [Trelegy Ellipta 100-62.5-25] Montelukast Sodium [Singulair] 10 mg PO DAILY 02/06/19 09/30/20 History Allopurinol [Zyloprim] 300 mg PO HS 08/22/20 09/30/20 History Famotidine 20 mg PO DAILY 08/22/20 09/30/20 History Insulin Detemir [Levemir Flextouch] 60 units SQ HS 08/22/20 09/30/20 History Insulin Lispro [humaLOG Kwikpen] 15 unit SQ DAILY 08/22/20 09/30/20 History Isosorbide Mononitrate [Ismo] 10 mg PO DAILY 08/22/20 09/30/20 History Losartan Potassium 100 mg PO DAILY 08/22/20 09/30/20 History Semaglutide [Ozempic] 0.25 mg SQ GARCIA 08/22/20 09/30/20 History traMADol HCL [Ultram] 50 mg PO DAILY PRN 08/22/20 09/30/20 History Acetaminophen Tab [Tylenol] 650 mg PO Q6H PRN 09/30/20 09/30/20 History Albuterol Sulfate [Albuterol 2 puff PO RT-Q4H PRN 09/30/20 09/30/20 History Sulfate Hfa] Zolpidem Tartrate [Ambien] 10 mg PO HS 09/30/20 09/30/20 History cloNIDine HCL [Catapres] 0.2 mg PO BID 09/30/20 09/30/20 History hydrALAZINE HCL [Apresoline] 25 mg PO DAILY 09/30/20 09/30/20 History Allergies Allergy/AdvReac Type Severity Reaction Status Date / Time hydrocodone [From Potter] Allergy Hallucinati Verified 09/30/20 20:08 ons/vomitin g Penicillins Allergy Anaphylaxis Verified 09/30/20 20:08 Sulfa (Sulfonamide Allergy Anaphylaxis Verified 09/30/20 20:08 Antibiotics) adhesive tape AdvReac Itching/swe Verified 09/30/20 20:08 lling cephalexin [From Keflex] AdvReac Unknown Verified 09/30/20 20:08 Childhood measles, mumps, and rubella AdvReac Rash/Hives Verified 09/30/20 20:08 vaccine shellfish derived [Shrimp] AdvReac Rash/Hives Verified 09/30/20 20:08 [id number]-Oeb-Ogu Reductase AdvReac Unknown Verified 09/30/20 20:08 Inhibitor Physical Exam Vitals: Vital Signs Temp Pulse Pulse Pulse Pulse Resp BP 10/08/20 09:34 97.4 F L 65 18 156/74 10/08/20 05:03 97.5 F L 68 15 139/78 10/08/20 02:05 98.0 F 70 18 155/84 10/08/20 01:04 97.9 F 69 16 10/07/20 20:03 98.6 F 70 16 171/91 10/07/20 20:00 16 10/07/20 15:00 97.8 F 73 79 70 10/07/20 10:23 97.5 F L 71 15 BP BP BP Pulse Ox 10/08/20 09:34 94 L 10/08/20 05:03 96 10/08/20 02:05 95 10/08/20 01:04 159/98 96 10/07/20 20:03 96 10/07/20 20:00 10/07/20 15:00 112/67 70/51 139/87 10/07/20 10:23 103/62 92 L Intake and Output 10/07/20 10/08/20 10/08/20 22:59 06:59 14:59 Other: Voiding Method Toilet # Voids 2 0 Weight 104 kg Results 10/06/20 10:26 10/07/20 05:50 Current Medications Generic Name Dose Route Start Last Admin Trade Name Freq PRN Reason Stop Dose Admin Acetaminophen 650 mg 09/30/20 19:50 10/07/20 16:48 Acetaminophen Tab 325 Mg Tab PO 650 mg Q6HR PRN Administration Mild Pain or Fever > 100.5 Acetaminophen 650 mg 10/04/20 21:09 Acetaminophen Tab 325 Mg Tab PO Q6H PRN Fever and/ or Pain Allopurinol 300 mg 10/01/20 21:00 10/07/20 20:49 Allopurinol 300 Mg Tab PO 300 mg HS MARCO Administration Alprazolam 0.5 mg 10/01/20 21:00 10/07/20 20:48 Alprazolam 0.5 Mg Tab PO 0.5 mg HS MARCO Administration Ascorbic Acid 1,000 mg 10/01/20 10:00 10/08/20 07:39 Ascorbic Acid 500 Mg Tab PO 1,000 mg DAILY MARCO Administration Carvedilol 12.5 mg 10/07/20 21:00 10/08/20 07:39 Carvedilol 12.5 Mg Tab PO 12.5 mg BID MARCO Administration Cholecalciferol 25 mcg 10/01/20 10:00 10/08/20 07:38 Cholecalciferol 25 Mcg (1000 Iu) Tablet PO 25 mcg DAILY MARCO Administration Citalopram Hydrobromide 40 mg 10/01/20 21:00 10/07/20 20:48 Citalopram Hydrobromide 20 Mg Tab PO 40 mg HS MARCO Administration Clonidine 0.1 mg 10/07/20 16:00 10/08/20 07:39 Clonidine Hcl 0.1 Mg Tab PO 0.1 mg TID MARCO Administration Dexamethasone 6 mg 10/01/20 10:00 10/08/20 07:39 Dexamethasone 2 Mg Tab PO 6 mg DAILY MARCO Administration Enoxaparin Sodium 30 mg 10/01/20 10:00 10/08/20 07:37 Enoxaparin 30 Mg/0.3 Ml Syringe SQ 30 mg DAILY MARCO Administration Famotidine 20 mg 10/02/20 09:00 10/08/20 07:38 Famotidine 20 Mg Tab PO 20 mg DAILY MARCO Administration Gabapentin 600 mg 10/01/20 21:00 10/08/20 07:38 Gabapentin 300 Mg Cap PO 600 mg BID MARCO Administration Sodium Chloride 1,000 mls @ 20 mls/hr 09/30/20 20:00 10/08/20 00:58 Saline 0.9% IV Not Given .Q24H [facility] Insulin Aspart 0 unit 10/01/20 12:30 10/08/20 07:37 Insulin Aspart (Novolog) 100 Unit/Ml Vial SQ 1 unit ACHS [facility] Administration Protocol Insulin Aspart 15 unit 10/02/20 07:30 10/08/20 07:37 Insulin Aspart (Novolog) 100 Unit/Ml Vial SQ 15 unit 0730 [facility] Administration Insulin Detemir 90 unit 10/06/20 21:00 10/07/20 20:48 Insulin Detemir (Levemir) 100 Unit/Ml Syr SQ 90 unit HS MARCO Administration Isosorbide Mononitrate 10 mg 10/02/20 09:00 10/08/20 07:38 Isosorbide Mononitrate 10 Mg Tab PO 10 mg DAILY MARCO Administration Losartan Potassium 100 mg 10/08/20 09:00 10/08/20 07:40 Losartan 50 Mg Tab PO 100 mg DAILY MARCO Administration Montelukast Sodium 10 mg 10/02/20 09:00 10/08/20 07:39 Montelukast 10 Mg Tab PO 10 mg DAILY MARCO Administration Naloxone HCl 0.2 mg 09/30/20 19:50 Naloxone 0.4 Mg/Ml 1 Ml Vial IV Q2M PRN Opioid Reversal Non-Formulary Medication 0.25 mg 10/04/20 21:15 10/04/20 23:56 Semaglutide [Ozempic] SQ Not Given [facility] Tramadol HCl 50 mg 10/01/20 09:51 10/06/20 19:41 Tramadol 50 Mg Tab PO 50 mg DAILY PRN Administration Pain Trazodone HCl 100 mg 10/01/20 21:00 10/07/20 20:48 Trazodone Hcl 100 Mg Tab PO 100 mg HS MARCO Administration Zinc Sulfate 220 mg 10/01/20 10:00 10/08/20 07:38 Zinc Sulfate 220 Mg Cap PO 220 mg DAILY MARCO Administration Zolpidem Tartrate 10 mg 10/01/20 21:00 10/07/20 20:48 Zolpidem 10 Mg Tab PO 10 mg HS MARCO Administration Intake and Output 10/07/20 10/08/20 10/08/20 22:59 06:59 14:59 Other: Voiding Method Toilet # Voids 2 0 Weight 104 kg 10/06/20 10:26 10/07/20 05:50
--- NOTE | 2020-10-08 13:59 | P.PN ---
Subjective Progress Note Date: 10/08/20 She was seen at bedside and she stated that she's doing much better today compared to yesterday. The she stated that the today she was walking with the PT and OT and the had no difficulties and felt her dizziness has dramatically improved compared to yesterday. No further episodes of passing out. Denies of any new neurological deficits. Her orthostatic vitals history in afternoon was supine was 139/87 with a heart rate is 70; sitting is blood pressure of 112/67 with a heart rate 73 and standing is a blood pressure of 70/51 with a heart rate is 79. Objective - Vital Signs Vital signs: Vital Signs Temp 97.4 F L 10/08/20 09:34 Pulse 65 10/08/20 09:34 Resp 18 10/08/20 09:34 BP 156/74 10/08/20 09:34 Pulse Ox 94 L 10/08/20 09:34 Intake & Output 10/07/20 10/08/20 10/08/20 18:59 06:59 18:59 Weight 104 kg Other: Voiding Method Toilet Toilet Toilet # Voids 2 0 - Exam GENERAL: The patient is lying in bed and is not in acute distress. NEUROLOGICAL: Higher mental function: The patient is awake, alert, oriented to self, place and time. Patient is following commands. No aphasia and no neglect. Cranial nerves: The pupils are round, equal and reactive to light and accommodation. Visual li are full to confrontation throughout. Extraocular movement is intact no nystagmus is noted. Facial sensation is normal to touch throughout. The facial strength is normal throughout. Hearing is normal bilaterally to hand rub. Tongue is midline and moved [id number] without any difficulty. No dysarthria is noted. Shoulder shrug is normal bilaterally. Motor: Gait is deferred. The strength is 5 over 5 throughout. Normal tone and bulk. Cerebellum: Normal finger to nose heel to chin bilaterally. Sensation: Sensation is normal to touch throughout. Reflexes (right/left):2+ throughout. Plantars are downgoing bilaterally. - Labs CBC & Chem 7: 10/06/20 10:26 10/07/20 05:50 Labs: Abnormal Lab Results - Last 24 Hours (Table) 10/07/20 10/07/20 10/08/20 Range/Units 16:45 20:59 06:56 POC Glucose (mg/dL) 183 H 294 H 159 H (75-99) mg/dL 10/08/20 Range/Units 11:32 POC Glucose (mg/dL) 315 H (75-99) mg/dL Assessment and Plan Assessment: This is a 55-year-old woman ho presented emergency department on 09/30/2020 for fever and cough for the last 2-3 days. She was found to have COVID 19+. Syncopal episode. Due to volume depletion since was on multiple medications for HTN and positive Orthostatic hypotensive. Positive Orthostatic hypotensive. Acute pneumonia due to Covid 19 Acute on chronic kidney insufficiency Hypertension and is on multiple medication Diabetes mellitus Obesity Plan: We will not get as an EEG since this is not a seizure and seems more orthostatic. If the patient continues to have syncopal episodes I will consider getting a rou deborah EEG to rule out any underlying seizure or epileptiform discharges CT of the head without contrast: Was reported as age-related atrophic and chronic small vessel ischemic change without acute intracranial process seen at this time. Guarding her orthostatics recommend the compression stocking and of her legs. If that is aware possibly consider salt tablets. Cardiology is on board. The plan is discussed with the patient nurse. There is no further neurological work-up needed. Neurology will sign off. Please reconsult neurology if needed. Jeremy Hernandez MD Neuro-hospitalist Time with Patient: Less than 30
[2020-10-08 16:28] LABS: Glucose,Whole Blood 368 mg/dL (75-99)
[2020-10-08 20:21] LABS: Glucose,Whole Blood 380 mg/dL (75-99)
[2020-10-08] MEDS ORDERED: allopurinoL 100 MG TAB PO SCH (21:00)
[2020-10-08] MEDS: INSULIN DETEMIR (LEVEMIR) 100 UNIT/ML SYR SQ SCH (21:10)
[2020-10-08] MEDS: traZODone HCL 100 MG TAB PO SCH (21:10)
[2020-10-08] MEDS: ALPRAZolam 0.5 MG TAB PO SCH (21:11)
[2020-10-08] MEDS: CITALOPRAM HYDROBROMIDE 20 MG TAB PO SCH (21:11)
[2020-10-08] MEDS: ZOLPIDEM 10 MG TAB PO SCH (21:11)
--- NOTE | 2020-10-08 21:56 | PN ---
PROGRESS NOTE CHIEF COMPLAINT: COVID pneumonia. HISTORY OF PRESENT ILLNESS: This lady is doing a little bit better. Antihypertensive medicines were cut back yesterday and she feels much better. She is not nearly as lightheaded. She has not had any chest pain, palpitations, orthopnea, abdominal pain, etc. PHYSICAL EXAMINATION: Chest is quite clear. Cardiac exam is normal. The abdomen is protuberant and soft. IMPRESSION: 1. Covid pneumonia. 2. Diabetes mellitus. 3. Obesity. 4. Hypotension. 5. Orthostatic hypotension. PLAN: Start to progress activity once again. Continue to monitor her blood sugars as well as her renal function and she will probably be able to go home in the next day or 2. MMODL / IJN: [id number] /
[2020-10-09 07:20] LABS: Glucose,Whole Blood 119 mg/dL (75-99)
[2020-10-09] MEDS: ENOXAPARIN 30 MG/0.3 ML SYRINGE SQ SCH (07:35)
[2020-10-09] MEDS: INSULIN ASPART (NovoLOG) 100 UNIT/ML VIAL SQ SCH ×3 (07:35→12:24)
[2020-10-09] MEDS: ZINC SULFATE 220 MG CAP PO SCH (07:36)
[2020-10-09] MEDS: carvediloL 12.5 MG TAB PO SCH (07:36)
[2020-10-09] MEDS: ISOSORBIDE MONONITRATE 10 MG TAB PO SCH (07:36)
[2020-10-09] MEDS: MONTELUKAST 10 MG TAB PO SCH (07:36)
[2020-10-09] MEDS: CHOLECALCIFEROL 25 MCG (1000 IU) TABLET PO SCH (07:36)
[2020-10-09] MEDS: FAMOTIDINE 20 MG TAB PO SCH (07:36)
[2020-10-09] MEDS: ASCORBIC ACID 500 MG TAB PO SCH (07:36)
[2020-10-09] MEDS: cloNIDine HCL 0.1 MG TAB PO SCH (07:36)
[2020-10-09] MEDS: dexAMETHasone 2 MG TAB PO SCH (07:37)
[2020-10-09] MEDS: GABAPENTIN 300 MG CAP PO SCH (07:37)
[2020-10-09] MEDS ORDERED: LOSARTAN 50 MG TAB PO SCH (09:00)
--- NOTE | 2020-10-09 10:00 | ECHOF ---
Referral Reason:syncope MEASUREMENTS -------- HEIGHT: 157.5 cm WEIGHT: 103.9 kg BP: IVSd: 1.9 cm (0.6 - 1.1) LVIDd: 4.0 cm (3.9 - 5.3) LVPWd: 2.0 cm (0.6 - 1.1) IVSs: 2.2 cm LVIDs: 2.6 cm LVPWs: 2.4 cm LA Diam: 3.7 cm (2.7 - 3.8) MV E Jeet: 0.38 m/s MV DecT: 254 ms MV A Jeet: 0.58 m/s MV E/A Ratio: 0.66 RAP: 5.00 mmHg RVSP: 18.20 mmHg FINDINGS -------- Sinus rhythm. Pt is positive Covid. The left ventricular size is normal. There is severe concentric left ventricular hypertrophy. Ove rall left ventricular systolic function is normal with, an EF between 60 - 65 %. The right ventricle is normal in size. The left atrial size is normal. The right atrial size is normal. There is mild aortic valve sclerosis. There is no evidence of aortic regurgitation. Mild mitral annular calcification present. Mild mitral regurgitation is present. Mild tricuspid regurgitation present. Right ventricular systolic pressure is normal at < 35 mmHg. The pulmonic valve was not well visualized. The aortic root size is normal. Echo free space represents a pericardial fat pad. There is a trivial pericardial effusion present. CONCLUSIONS -------- 1. Pt is positive Covid. 2. The left ventricular size is normal. 3. There is severe concentric left ventricular hypertrophy. 4. Overall left ventricular systolic function is normal with, an EF between 60 - 65 %. 5. The right ventricle is normal in size. 6. The left atrial size is normal. 7. The right atrial size is normal. 8. There is mild aortic valve sclerosis. 9. Mild mitral annular calcification present. 10. Mild mitral regurgitation is present. 11. Mild tricuspid regurgitation present. 12. The pulmonic valve was not well visualized. 13. The aortic root size is normal. 14. Echo free space represents a pericardial fat pad. 15. There is a trivial pericardial effusion present. SUPPLIER QUALITY SPECIALIST: Luz Brown RDCS
[2020-10-09 11:21] LABS: Glucose,Whole Blood 184 mg/dL (75-99)
--- NOTE | 2020-10-09 11:25 | P.PN ---
Subjective This is a pleasant 55-year-old female past medical history significant for type 2 diabetes, hypertension, hyperlipidemia, chronic kidney disease, non obstructive coronary artery disease. She follows in the office with Dr. Kenny. We have been asked to see in consultation for syncope. Yesterday patient was walking to the bathroom with occupational therapy and had a syncopal episode, she was lowered to the floor. When sitting on the floor, patient did not recall the event. Patient did not lose consciousness. Orthostatics were positive Supine BP 139/87 HR 70, Sitting BP 112/67 HR 73, and Standing BP 70/51 HR 79. Vital signs reviewed, Patient has been orthostatic prior to this event. Patient was admitted to the hospital with dry cough and shortness of breath, she was found to be COVID-19 positive with pneumonia. Patient denies chest pain, pa lpitations, fatigue, or weakness. Laboratory data reviewed, sodium 135, potassium 4.0, serum creatinine 2.8, BUN 34, magnesium 2.1, Vital signs blood pressure 156/74, heart rate 65, afebrile maintaining oxygen saturations on room air. Telemetry tracings indicate sinus mechanism HR 60s-70s, no arrhythmia noted. CT Brain- age related atrophic and chronic small vessel ischemic change without acute intracranial process seen. Chest x-ray revealed improved aeration as compared to prior exam. Most recent echocardiogram 12/2018 left ventricular systolic function is normal with an EF between 5560 percent. Severe concentric left ventricular hypertrophy, RV is mildly enlarged, mild MR, mild TR, RVSP 39.46mmHg. Last cardiac catheterization 02/[address] Kenny revealed intermediate severe disease involving the mid left circumflex and mid LAD Current home cardiac medications include carvedilol 25 mg twice a day, clonidine 0.2 mg 3 times a day, Isosorbide mononitrate 10 mg daily, losartan 100 mg daily 10/09/2020: 2D echocardiogram revealed left ventricle systolic function is normal with EF between 6065 percent, mild aortic valve sclerosis, mild MR, mild TR, trivial pericardial effusion present. Current inpatient cardiac medications include carvedilol 12.5 mg twice a day, clonidine 0.1 mg BID , Isosorbide mononitrate 10 mg daily, losartan 50 mg daily. BP 118/71 HR 70s, afebrile, maintaining oxygen saturations on room air PHYSICAL EXAMINATION Thorough Physical examination not performed due to covid-19 infection, chart reviewed. ASSESSMENT Orthostatic Hypotension - BP is stable, patient improving Syncope most likely related to volume depletion, possible diabetic autonomic neuropathy component. No arrhythmia noted on telemetry. Covid-19 Pneumonia Nonobstructive coronary artery disease s/p cardiac catheterization 02/2019 which revealed intermediate severe disease involving the mid left circumflex and mid LAD Type 2 Diabetes Hypertension Hyperlipidemia PLAN Would continue clonidine to 0.1mg BID, Losartan 50mg daily, carvedilol 12.5mg BID We will sign off at this time. Please reach out for any further questions or concerns. Thank you kindly for this consultation. Patient should follow up in the office with Dr. Kenny. Nurse Practitioner note has been reviewed, I agree with a documented findings and plan of care. Patient was seen and examined. Objective - Vital Signs Vital signs: Vital Signs Temp 97.6 F 10/09/20 05:02 Pulse 72 10/09/20 05:02 Resp 16 10/09/20 05:02 BP 125/63 10/09/20 05:02 Pulse Ox 97 10/09/20 05:02 Intake & Output 10/08/20 10/09/20 10/09/20 18:59 06:59 18:59 Other: Voiding Method Toilet Toilet # Voids 1 - Labs CBC & Chem 7: 10/06/20 10:26 10/07/20 05:50 Labs: Abnormal Lab Results - Last 24 Hours (Table) 10/08/20 10/08/20 10/08/20 Range/Units 11:32 16:26 20:20 POC Glucose (mg/dL) 315 H 368 H 380 H (75-99) mg/dL 10/09/20 Range/Units 07:17 POC Glucose (mg/dL) 119 H (75-99) mg/dL
[2020-10-09 11:43] LABS: African American GFR (CKD) 18.8 (60.0-200.0); Anion Gap 10.1 mmol/L (4.00-12.00); BUN/Creat Ratio 29.03 Ratio (12.00-20.00); Calcium 9.3 mg/dL (8.7-10.3); Carbon Dioxide 22.9 mmol/L (21.6-31.8); Magnesium 2.7 mg/dL (1.5-2.4); Non-African American GFR(CKD) 16.3 (60.0-200.0); Potassium 4.2 mmol/L (3.5-5.5)
--- NOTE | 2020-10-09 11:54 | P.PN ---
Subjective Patient is seen in follow-up for acute kidney injury on chronic kidney disease. Patient has chronic kidney disease stage IV secondary to diabetic kidney disease and cardiorenal syndrome with baseline creatinine near 2.5. Renal function a little worse, cr 3.1 today. Has been voiding. No further dizziness or syncopal episodes. Denies chest pain or shortness of breath. No active complaints today. Vital signs are stable. General: The patient appeared well nourished and normally developed. HEENT: Head exam is unremarkable. Neck is without jugular venous distension. LUNGS: Breath sounds decreased. HEART: Rate and Rhythm are regular. ABDOMEN: Soft, nontender. EXTREMITITES: No edema. Objective - Vital Signs Vital signs: Vital Signs Temp 97.7 F 10/09/20 10:00 Pulse 69 10/09/20 10:00 Resp 18 10/09/20 10:00 BP 118/71 10/09/20 10:00 Pulse Ox 96 10/09/20 10:00 Intake & Output 10/08/20 10/09/20 10/09/20 18:59 06:59 18:59 Other: Voiding Method Toilet Toilet Toilet # Voids 1 - Labs CBC & Chem 7: 10/06/20 10:26 10/09/20 07:24 Labs: Abnormal Lab Results - Last 24 Hours (Table) 10/08/20 10/08/20 10/09/20 Range/Units 16:26 20:20 07:17 BUN (9.0-27.0) mg/dL Creatinine (0.6-1.5) mg/dL Est GFR (CKD-EPI)AfAm (60.0-200.0) Est GFR (CKD-EPI)NonAf (60.0-200.0) BUN/Creatinine Ratio (12.00-20.00) Ratio Glucose (70-110) mg/dL POC Glucose (mg/dL) 368 H 380 H 119 H (75-99) mg/dL Magnesium (1.5-2.4) mg/dL 10/09/20 10/09/20 Range/Units 07:24 11:21 BUN 90.0 H (9.0-27.0) mg/dL Creatinine 3.1 H (0.6-1.5) mg/dL Est GFR (CKD-EPI)AfAm 18.8 L (60.0-200.0) Est GFR (CKD-EPI)NonAf 16.3 L (60.0-200.0) BUN/Creatinine Ratio 29.03 H (12.00-20.00) Ratio Glucose 141 H (70-110) mg/dL POC Glucose (mg/dL) 184 H (75-99) mg/dL Magnesium 2.7 H (1.5-2.4) mg/dL Assessment and Plan Plan: Assessment: 1. Acute kidney injury secondary to ATN secondary to COVID-19 infection. Creatinine 3.1 today. No hydronephrosis noted on kidney ultrasound. Left kidney atrophic. 2. Chronic kidney disease stage IV with baseline creatinine near 2-2.5 secondary to diabetic kidney disease and cardiorenal syndrome. 3. COVID-19 pneumonia maintained on steroids and zinc. 4. Diabetes mellitus. 5. Hypertension with chronic kidney disease. Does have orthostatic hypotension. 6. Chronic diastolic CHF. 7. Left atrophic kidney. Plan: Hold diuretics. Monitor orthostatics. If standing blood pressure less than 120 systolic, hold hydralazine. Avoid nephrotoxins. Continue to monitor renal function and urine output. Anticipate discharge soon. Repeat BMP 2-3 days postdischarge. Follow up outpatient in 1 week.
[2020-10-09 14:58] VITALS: BP 118/64; PULSE 73; RESP 17; TEMP 98.3
--- NOTE | 2020-10-10 22:45 | DS ---
DISCHARGE SUMMARY CHIEF COMPLAINT: Shortness of breath. HISTORY OF PRESENT ILLNESS AND PHYSICAL EXAMINATION: Details of this lady's history and physical can be found in the initial workup. LABORATORY STUDIES: While she was in the hospital, she had laboratory studies, details of which can be found in the laboratory section of her chart. COURSE IN THE HOSPITAL: After admission, she was placed on bedrest and started intravenous fluids and monitored for any difficulty with respiratory insufficiency. She did quite well. While in the hospital, her blood pressure and blood sugars franklin and these were addressed. She had a fall in her room one night and she complained that she did feel lightheaded when she stood up. Upright blood pressures suggestive of a systolic around 121 and when she was in bed, her systolic was much higher. The medications were raised and she did more poorly. It was determined that she was having orthostatic hypotension. The antihypertensives were cut back and she did very well. Blood sugars were brought under good control and it was felt that she could be discharged on October 09. She will go home on light activity about the house and she will follow up in the office in several days. FINAL DIAGNOSES: 1. COVID pneumonia. 2. Hypertension. 3. Insulin-dependent diabetes mellitus. 4. Iatrogenic orthostatic hypotension. OPERATIONS: None. CONSULTATION: Pulmonology. She is improved. MMODL / IJN: [id number] /
== END 2020-10-09 15:04 | disposition home or self-care (01) | DRG 177 ==
LOC: EC 15:03 → 3SCARD 19:50 → 4SSUR 10-02 11:56
PROVIDERS: ADMIT Family Medicine; ATTEND Family Medicine
PROC: XW033E5 Introduction of Remdesivir Anti-infective into Peripheral Vein, Percutaneous Approach, New Technology Group 5 (ICD-10-PCS; principal; 2020-09-30)
DX: U07.1 COVID-19 (principal); J12.82 Pneumonia due to coronavirus disease 2019; J96.01 Acute respiratory failure with hypoxia; N17.0 Acute kidney failure with tubular necrosis; I13.0 Hypertensive heart and chronic kidney disease with heart failure and stage 1 through stage 4 chronic kidney disease, or unspecified chronic kidney disease; N18.4 Chronic kidney disease, stage 4 (severe); I50.32 Chronic diastolic (congestive) heart failure; Z68.41 Body mass index [BMI] 40.0-44.9, adult; E11.319 Type 2 diabetes mellitus with unspecified diabetic retinopathy without macular edema; E11.22 Type 2 diabetes mellitus with diabetic chronic kidney disease; D50.9 Iron deficiency anemia, unspecified; E11.40 Type 2 diabetes mellitus with diabetic neuropathy, unspecified; E11.65 Type 2 diabetes mellitus with hyperglycemia; Z79.4 Long term (current) use of insulin; E66.9 Obesity, unspecified; J45.40 Moderate persistent asthma, uncomplicated; I95.1 Orthostatic hypotension; I25.10 Atherosclerotic heart disease of native coronary artery without angina pectoris; E86.9 Volume depletion, unspecified; I08.3 Combined rheumatic disorders of mitral, aortic and tricuspid valves; E78.5 Hyperlipidemia, unspecified; K44.9 Diaphragmatic hernia without obstruction or gangrene; K21.9 Gastro-esophageal reflux disease without esophagitis; F41.9 Anxiety disorder, unspecified; G43.909 Migraine, unspecified, not intractable, without status migrainosus; E55.9 Vitamin D deficiency, unspecified; M10.9 Gout, unspecified; H54.62 Unqualified visual loss, left eye, normal vision right eye; Z79.51 Long term (current) use of inhaled steroids; Z79.899 Other long term (current) drug therapy; Z87.19 Personal history of other diseases of the digestive system; Z87.11 Personal history of peptic ulcer disease; Z87.01 Personal history of pneumonia (recurrent); Z86.19 Personal history of other infectious and parasitic diseases; Z86.14 Personal history of Methicillin resistant Staphylococcus aureus infection; Z87.81 Personal history of (healed) traumatic fracture; Z98.891 History of uterine scar from previous surgery; Z87.42 Personal history of other diseases of the female genital tract; Z87.2 Personal history of diseases of the skin and subcutaneous tissue; Z98.42 Cataract extraction status, left eye; Z96.1 Presence of intraocular lens; Z86.69 Personal history of other diseases of the nervous system and sense organs; Z98.890 Other specified postprocedural states; Z71.3 Dietary counseling and surveillance; Z88.1 Allergy status to other antibiotic agents; Z88.5 Allergy status to narcotic agent; Z88.0 Allergy status to penicillin; Z91.013 Allergy to seafood; Z88.2 Allergy status to sulfonamides; Z88.7 Allergy status to serum and vaccine; Z88.8 Allergy status to other drugs, medicaments and biological substances; Z91.048 Other nonmedicinal substance allergy status; Z80.0 Family history of malignant neoplasm of digestive organs; Z83.3 Family history of diabetes mellitus; Z82.49 Family history of ischemic heart disease and other diseases of the circulatory system; W19.XXXA Unspecified fall, initial encounter
CPT/HCPCS: 36415; 70450; 71045; 76770; 78580; 80048; 80053; 81001; 82728; 83605; 83615; 83735; 84145; 84439; 84443; 84484; 85025; 85379; 85610; 85730; 86140; 87040; 87635; 93005; 93306; 99285

== ENCOUNTER 2020-10-11 13:52 | Inpatient (IN) | payer BC, MEDICARE ==
[2020-10-11] MEDS ORDERED: SODIUM CHLORIDE 0.9% 1,000 ML IV STA (14:21)
--- NOTE | 2020-10-11 14:31 | ED ---
General Adult HPI - General Chief complaint: Neuro Symptoms/Deficit Stated complaint: Dizziness, weakness Time Seen by Provider: 10/11/20 14:16 Source: patient, family, RN notes reviewed, old records reviewed Mode of arrival: wheelchair Limitations: no limitations - History of Present Illness Initial comments: 55-year-old female presenting with lightheadedness, and slurred speech. Symptoms began at approximately 1 PM. History of is obtained from both the patient and her . She was recently discharged from this institution after having coronavirus pneumonia. She does have a history of hypertension, chronic kidney disease. She was found to have a blood pressure in the 70s on home blood pressure cuff. Initial blood pressure in triage is 70/47. She is not on any anticoagulation. No active chest pain. No dyspnea. No further fever. - Related Data Home Medications Medication Instructions Recorded Confirmed Citalopram Hydrobromide [CeleXA] 40 mg PO HS 02/25/17 10/11/20 Gabapentin 600 mg PO BID 02/25/17 10/11/20 Cetirizine HCl [Zyrtec] 10 mg PO DAILY 11/14/17 10/11/20 ALPRAZolam [Xanax] 0.5 mg PO HS 10/16/18 10/11/20 Carvedilol [Coreg] 25 mg PO BID 10/16/18 10/11/20 traZODone HCL [Desyrel] 100 mg PO HS 10/16/18 10/11/20 Chlorthalidone [Hygroton] 25 mg PO DAILY 02/06/19 10/11/20 Fluticasone/Umeclidin/Vilanter 1 puff INHALATION RT-DAILY 02/06/19 10/11/20 [Trelemarysol Ellipta 100-62.5-25] Montelukast Sodium [Singulair] 10 mg PO DAILY 02/06/19 10/11/20 Allopurinol [Zyloprim] 300 mg PO HS 08/22/20 10/11/20 Famotidine 20 mg PO DAILY 08/22/20 10/11/20 Insulin Detemir [Levemir Flextouch] 60 units SQ HS 08/22/20 10/11/20 Insulin Lispro [humaLOG Kwikpen] 15 unit SQ DAILY 08/22/20 10/11/20 Isosorbide Mononitrate [Ismo] 10 mg PO DAILY 08/22/20 10/11/20 Losartan Potassium 100 mg PO DAILY 08/22/20 10/11/20 Semaglutide [Ozempic] 0.25 mg SQ GARCIA 08/22/20 10/11/20 traMADol HCL [Ultram] 50 mg PO DAILY PRN 08/22/20 10/11/20 Acetaminophen Tab [Tylenol] 650 mg PO Q6H PRN 09/30/20 10/11/20 Albuterol Sulfate [Albuterol 2 puff INHALATION RT-Q4H PRN 09/30/20 10/11/20 Sulfate Hfa] Zolpidem Tartrate [Ambien] 10 mg PO HS 09/30/20 10/11/20 cloNIDine HCL [Catapres] 0.2 mg PO BID 09/30/20 10/11/20 hydrALAZINE HCL [Apresoline] 25 mg PO DAILY 09/30/20 10/11/20 Vitamin D3 50,000iu 1,250 mcg PO Q30D 10/11/20 10/11/20 Allergies Allergy/AdvReac Type Severity Reaction Status Date / Time hydrocodone [From [place]] Allergy Hallucinati Verified 10/11/20 15:00 ons/vomitin g Penicillins Allergy Anaphylaxis Verified 10/11/20 15:00 Sulfa (Sulfonamide Allergy Anaphylaxis Verified 10/11/20 15:00 Antibiotics) adhesive tape AdvReac Itching/swe Verified 10/11/20 15:00 lling cephalexin [From Keflex] AdvReac Unknown Verified 10/11/20 15:00 Childhood measles, mumps, and rubella AdvReac Rash/Hives Verified 10/11/20 15:00 vaccine shellfish derived [Shrimp] AdvReac Rash/Hives Verified 10/11/20 15:00 [place]-Grh-Lry Reductase AdvReac Unknown Verified 10/11/20 15:00 Inhibitor Review of Systems ROS Statement: Those systems with pertinent positive or pertinent negative responses have been documented in the HPI. ROS Other: All systems not noted in ROS Statement are negative. Past Medical History Past Medical History: Coronary Artery Disease (CAD), Heart Failure, Diabetes Mellitus, Eye Disorder, GERD/Reflux, Hyperlipidemia, Hypertension, Pneumonia, Renal Disease Additional Past Medical History / Comment(s): Pt tested covid+ 09/30/20 at [facility] ER. 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 History of Any Multi-Drug Resistant Organisms: MRSA Date of last positivie culture/infection: 09/29/19 MDRO Source:: TOE Past Surgical History: Section, Uterine Ablation Additional Past Surgical History / Comment(s): C/S x 4, cyst removed from forehead, EGD, left cataract with lens implant then retinal surgery d/t detachment, Lt cheek abscesses incision and drainages. Past Anesthesia/Blood Transfusion Reactions: Motion Sickness, Postoperative Nausea & Vomiting (PONV) Past Psychological History: Anxiety Smoking Status: Never smoker Past Alcohol Use History: None Reported Past Drug Use History: None Reported - Past Family History Father Family Medical History: Cancer, Diabetes Mellitus Additional Family Medical History / Comment(s): cancerous polyp, prostate cancer Mother Family Medical History: Hypertension Additional Family Medical History / Comment(s): Mother had irregular heartbeat General Exam Limitations: no limitations General appearance: alert, in no apparent distress Head exam: Present: atraumatic, normocephalic Eye exam: Present: normal appearance, PERRL ENT exam: Present: mucous membranes dry Neck exam: Present: normal inspection. Absent: tenderness, meningismus Respiratory exam: Present: normal lung sounds bilaterally. Absent: respiratory distress, wheezes, rales Cardiovascular Exam: Present: regular rate, normal rhythm GI/Abdominal exam: Present: soft. Absent: distended, tenderness, guarding, rebound Extremities exam: Present: normal inspection, normal capillary refill. Absent: pedal edema, calf tenderness Neurological exam: Present: alert, oriented X3, motor sensory deficit (Patient has no facial asymmetry, no aphasia, she has dysarthria, NIH of 1). Absent: CN II-XII intact Psychiatric exam: Present: normal affect, normal mood Skin exam: Present: warm, dry, intact. Absent: cyanosis, diaphoretic Course Vital Signs 10/11/20 10/11/20 10/11/20 13:58 14:13 14:50 Temperature 97.8 F Pulse Rate 70 69 66 Respiratory 18 18 18 Rate Blood Pressure 70/47 90/46 115/50 O2 Sat by Pulse 99 98 Oximetry 10/11/20 10/11/20 10/11/20 15:05 15:20 15:35 Temperature 98.1 F 97.6 F 98.2 F Pulse Rate 65 64 63 Respiratory 18 18 18 Rate Blood Pressure 110/50 109/51 105/54 O2 Sat by Pulse 98 97 97 Oximetry EKG Findings - EKG Comments: EKG Findings:: EKG: Normal sinus rhythm, prolonged QT, rate of 66, OK interval 206, QRS duration 98, QTC 469, no ST segment elevation. Medical Decision Making - Medical Decision Making 55-year-old female who had presented with slurred speech which began abruptly. Patient is alert and oriented with dysarthria, NIH of 1. Patient has no previous history of TIA or CVA. She does have history of hypertension, chronic kidney disease, multiple comorbidities. She is noted to be hypotensive upon arrival 70 systolic. She states she did take all of her antihypertensive medication this morning. She has a nonfocal exam otherwise. I did discuss case with the stroke neurologist Dr. Davis, at 1435. He does recommend medical management as this is suspected to be more metabolic primary CVA. Patient is given 1 L normal saline bolus with improvement in blood pressure, and a transient improvement in speech. Laboratory studies are performed, showing normal CBC, she does have an elevated BUN at 108 which I suspect is. I discussed the case with Dr. Nieves who is familiar with this patient. Will admit with both neurology and nephrology on consult. - Lab Data Result diagrams: 10/11/20 14:31 10/11/20 14:31 Lab Results 10/11/20 10/11/20 10/11/20 Range/Units 14:30 14:31 14:31 WBC 8.7 (3.8-10.6) k/uL RBC 3.91 (3.80-5.40) m/uL Hgb 11.8 (11.4-16.0) gm/dL Hct 35.0 (34.0-46.0) % MCV 89.7 (80.0-100.0) fL MCH 30.2 (25.0-35.0) pg MCHC 33.6 (31.0-37.0) g/dL RDW 13.7 (11.5-15.5) % Plt Count 261 (150-450) k/uL MPV 7.1 Neutrophils % 71 % Lymphocytes % 17 % Monocytes % 7 % Eosinophils % 3 % Basophils % 0 % Neutrophils # 6.2 (1.3-7.7) k/uL Lymphocytes # 1.5 (1.0-4.8) k/uL Monocytes # 0.6 (0-1.0) k/uL Eosinophils # 0.3 (0-0.7) k/uL Basophils # 0.0 (0-0.2) k/uL PT 10.3 (9.0-12.0) sec INR 1.0 (<1.2) APTT 19.3 L (22.0-30.0) sec Sodium (137-145) mmol/L Potassium (3.5-5.1) mmol/L Chloride (98-107) mmol/L Carbon Dioxide (22-30) mmol/L Anion Gap mmol/L BUN (7-17) mg/dL Creatinine (0.52-1.04) mg/dL Est GFR (CKD-EPI)AfAm (>60 ml/min/1.73 sqM) Est GFR (CKD-EPI)NonAf (>60 ml/min/1.73 sqM) Glucose (74-99) mg/dL POC Glucose (mg/dL) 79 (75-99) mg/dL POC Glu Child Welfare Worker ID Richard Rene Calcium (8.4-10.2) mg/dL Total Bilirubin (0.2-1.3) mg/dL AST (14-36) U/L ALT (4-34) U/L Alkaline Phosphatase (38-126) U/L Troponin I (0.000-0.034) ng/mL Total Protein (6.3-8.2) g/dL Albumin (3.5-5.0) g/dL 10/11/20 10/11/20 Range/Units 14:31 14:31 WBC (3.8-10.6) k/uL RBC (3.80-5.40) m/uL Hgb (11.4-16.0) gm/dL Hct (34.0-46.0) % MCV (80.0-100.0) fL MCH (25.0-35.0) pg MCHC (31.0-37.0) g/dL RDW (11.5-15.5) % Plt Count (150-450) k/uL MPV Neutrophils % % Lymphocytes % % Monocytes % % Eosinophils % % Basophils % % Neutrophils # (1.3-7.7) k/uL Lymphocytes # (1.0-4.8) k/uL Monocytes # (0-1.0) k/uL Eosinophils # (0-0.7) k/uL Basophils # (0-0.2) k/uL PT (9.0-12.0) sec INR (<1.2) APTT (22.0-30.0) sec Sodium 136 L (137-145) mmol/L Potassium 5.4 H (3.5-5.1) mmol/L Chloride 105 (98-107) mmol/L Carbon Dioxide 23 (22-30) mmol/L Anion Gap 8 mmol/L BUN 108 H* (7-17) mg/dL Creatinine 3.04 H (0.52-1.04) mg/dL Est GFR (CKD-EPI)AfAm 19 (>60 ml/min/1.73 sqM) Est GFR (CKD-EPI)NonAf 17 (>60 ml/min/1.73 sqM) Glucose 114 H (74-99) mg/dL POC Glucose (mg/dL) (75-99) mg/dL POC Glu Child Welfare Worker ID Calcium 9.0 (8.4-10.2) mg/dL Total Bilirubin 0.7 (0.2-1.3) mg/dL AST 27 (14-36) U/L ALT 15 (4-34) U/L Alkaline Phosphatase 49 (38-126) U/L Troponin I 0.017 (0.000-0.034) ng/mL Total Protein 6.0 L (6.3-8.2) g/dL Albumin 3.2 L (3.5-5.0) g/dL Disposition Clinical Impression: Cerebrovascular accident (CVA), Acute renal failure, Uremic encephalopathy Disposition: ADMITTED IP TO THIS [facility] Condition: Stable Is patient prescribed a controlled substance at d/c from ED?: No Referrals: Robbie Nieves MD [Primary Care Provider] - 1-2 days Decision to Admit Reason: Admit from EC Decision Date: 10/11/20 Decision Time: 16:55
[2020-10-11 14:41] LABS: Glucose,Whole Blood 79 mg/dL (75-99)
[2020-10-11 14:51] LABS: Basophils % (A) 0 %; Eosinophils # (A) 0.3 k/uL (0-0.7); Eosinophils % (A) 3 %; HGB 11.8 gm/dL (11.4-16.0); Lymphocytes # (A) 1.5 k/uL (1.0-4.8); Lymphocytes % (A) 17 %; MCH 30.2 pg (25.0-35.0); MCHC 33.6 g/dL (31.0-37.0); MCV 89.7 fL (80.0-100.0); Mean Platelet Volume 7.1; Monocytes # (A) 0.6 k/uL (0-1.0); Monocytes % (A) 7 %; Neutrophils # (A) 6.2 k/uL (1.3-7.7); Neutrophils % (A) 71 %; Platelet Count 261 k/uL (150-450); RBC 3.91 m/uL (3.80-5.40); RDW 13.7 % (11.5-15.5); WBC 8.7 k/uL (3.8-10.6)
[2020-10-11 15:02] LABS: Albumin 3.2 g/dL (3.5-5.0); Total Bilirubin 0.7 mg/dL (0.2-1.3)
--- NOTE | 2020-10-11 15:05 | CT ---
EXAMINATION TYPE: CT brain wo con for TPA DATE OF EXAM: 10/11/2020 COMPARISON: 10/07/2020 HISTORY: Neuroeficit, acute, stroke suspected CT DLP: 1099.4 mGycm Automated exposure control for dose reduction was used. Images obtained without contrast. Ventricles have normal size. There is no mass effect nor midline shift. There is no sign of intracran ial hemorrhage. Calvarium is intact. Skull base is intact. IMPRESSION: Negative unenhanced head CT scan. No change.
[2020-10-11 15:14] LABS: Potassium 5.4 mmol/L (3.5-5.1)
[2020-10-11 15:59] LABS: Prothrombin Time 10.3 sec (9.0-12.0)
--- NOTE | 2020-10-11 16:03 | XR ---
EXAMINATION TYPE: XR chest 1V portable DATE OF EXAM: 10/11/2020 COMPARISON: 10/06/2020 HISTORY: Altered mental status TECHNIQUE: FINDINGS: Heart and mediastinum are normal. Lungs are clear. Diaphragm is normal. Bony thorax is inta ct. There are chest leads. IMPRESSION: Normal chest. No change.
[2020-10-11 16:10] LABS: Partial Thromboplastin Time 19.3 sec (22.0-30.0)
[2020-10-11] MEDS ORDERED: ASPIRIN 325 MG TAB PO STA (16:49)
[2020-10-11] MEDS: SODIUM CHLORIDE 0.9% 1,000 ML IV SCH (17:32)
[2020-10-11] MEDS ORDERED: traMADol 50 MG TAB PO PRN (20:03)
[2020-10-11] MEDS: ALPRAZolam 0.5 MG TAB PO SCH (20:09)
[2020-10-12 05:11] LABS: Cholesterol 129 mg/dL (<200); HDL Cholesterol 18 mg/dL (40-60); LDL Cholesterol,Calculated 64 mg/dL (0-99); Triglycerides 234 mg/dL (<150)
[2020-10-12 09:45] LABS: Glucose,Whole Blood 83 mg/dL (75-99)
[2020-10-12] MEDS: SODIUM CHLORIDE 0.9% 1,000 ML IV SCH ×2 (11:36→22:52)
--- NOTE | 2020-10-12 12:31 | US ---
EXAMINATION TYPE: US carotid duplex BILAT DATE OF EXAM: 10/12/2020 COMPARISON: NONE CLINICAL HISTORY: CVA. EXAM MEASUREMENTS: RIGHT: Peak Systolic Velocity (PSV) cm/sec ----- Right CCA: 72.4 ----- Right ICA: 127.7 ----- Right ECA: 81.8 ICA/CCA ratio: 1.8 RIGHT: End Diastole cm/sec ----- Right CCA: 15.3 ----- Right ICA: 28.6 ----- Right ECA: 4.8 LEFT: Peak Systolic Velocity (PSV) cm/sec ----- Left CCA: 53.0 ----- Left ICA: 73.1 ----- Left ECA: 4.8 ICA/CCA ratio: 1.4 LEFT: End Diastole cm/sec ----- Left CCA: 11.9 ----- Left ICA: 29.8 ----- Left ECA: 10.0 VERTEBRALS (direction of flow): Right Vertebral: Antegrade Left Vertebral: Antegrade Rhythm: Normal Mild atherosclerotic changes with no significant velocity increases seen bilaterally. IMPRESSION: 1. Atherosclerotic changes with no significant hemodynamic stenosis bilaterally. Criteria for Assigning % of Stenosis / Diameter reduction (Estimation based on the indirect measurements of the internal carotid artery velocities (ICA PSV). 1. Normal (no stenosis)=ICA PSV < 125 cm/s: ratio < 2.0: ICA EDV<40 cm/s. 2. Less than 50% stenosis=ICA PSV < 125 cm/s: ratio < 2.0: ICA EDV<40 cm/s. 3. 50 to 69% stenosis=ICA PSV of 125 to 230 cm/s: ration 2.0 ? 4.0: ICA EDV 40-100 cm/s. 4. Greater than 70% stenosis to near occlusion= ICA PSV > 230 cm/s: ratio > 4.0: ICA EDV > 100 cm/s. 5. Near occlusion= ICA PSV velocities may be low or undetectable: variable ratio and ICA EDV. 6. Total occlusion=unable to detect flow.
--- NOTE | 2020-10-12 12:35 | P.CNNES ---
History of Present Illness Consult date: 10/12/20 Requesting physician: German Hernandez Reason for Consult: Dysarthria, rule out CVA History of Present Illness: Patient is a 55-year-old female came to the hospital yesterday at 2 PM for lightheadedness and slurred speech. Patient states that she was recently admitted to the hospital for pneumonia related to Covid infection for 12 days and was discharged on 10/09/2020. On Monday she was doing well, had dinner with the family. Yesterday on Monday, she woke up at 10 AM felt very tired. She just wanted to stay in the bed. At around noon patient's made her the breakfast, and when she tried to talk to her son, she was having slurred speech, as if she was drunk, and was having difficulty getting up, as she would lean to one side. She thought her blood sugar was low, and she checked her blood sugar was 150. Her legs would give out and had no strength. She felt both legs were weak. There was no nausea vomiting, numbness tingling or problem with the vision or facial droopiness. Patient underwent testing as below. Her NIH stroke scale was 1 for dysarthria. No previous history of s trokes or TIA. ED staff discussed the case with Dr. Davis at 2:35 PM. No tPA was recommended, as symptoms were felt to be metabolic. Medical management was recommended. Patient was given 1 L of normal saline with improvement in blood pressure and transient improvement in speech. Patient also has been noticing some difficulty swallowing and chokes. Vital signs on arrival blood pressure 70/47, pulse is 70, temperature 97.8. The blood pressure did improve subsequently to 115/50. CT head negative. Ventricles are normal size. On my review, there is evidence of old lacunar infarct in the left side of the sunil. 2-D echo from 10/09/2020 showed normal left ventricular size. Severe concentric LVH. EF is 60-65%. Left atrial size is normal. Mild aortic valve sclerosis. Blood test shows normal CBC, PT/PTT, sodium 136 potassium 5.4, BUN 108, creatinine 3.04. Hepatic panel is normal. Troponin is negative. Total cholesterol 129, LDL 64, HDL 18 and triglycerides 234. Patient does have chronic renal insufficiency, it is slightly worse now. Patient apparently not on any antiplatelet medication at home. She does have hypertension and diabetes. Patient is also on gabapentin 600 mg twice a day. Patient was given aspirin 324 mg stat yesterday at 4:50 PM. Patient never smoked because of asthma. She has hypertension, diabetes type 2 for 20 years states is controlled. She drinks alcohol very rarely. Review of Systems As above in detail. Denies any double vision. She does have history of diabetic retinopathy, and history of retinal detachment on the left side. Patient has visual disturbance from her diabetes. Denies any headache, focal numbness tingling or weakness. She feels generalized weak particularly in the legs. Still with some slurred speech. No chest pain abdominal pain nausea vomiting diarrhea. She is having some difficulty swallowing, she chokes sometimes. Past Medical History Past Medical History: Coronary Artery Disease (CAD), Heart Failure, Diabetes Mellitus, Eye Disorder, GERD/Reflux, Hyperlipidemia, Hypertension, Pneumonia, Renal Disease Additional Past Medical History / Comment(s): Pt tested covid+ 09/30/20 at [facility] ER. 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 and loss of depth perception, iron anemia, pancreatitis, s tomach ulcer, hiatal hernia, bronchitis, pneumonia as a child, migraines in the past, vitamin D deficiency, facial cellulitis/sepsis with MRSA infection, edema with steroid use, past r ankle fracture. History of Any Multi-Drug Resistant Organisms: MRSA Date of last positivie culture/infection: 09/29/19 MDRO Source:: TOE Past Surgical History: Section, Uterine Ablation Additional Past Surgical History / Comment(s): C/S x 4, cyst removed from forehead, EGD, left cataract with lens implant then retinal surgery d/t detachment, Lt cheek abscesses incision and drainages. Past Anesthesia/Blood Transfusion Reactions: Motion Sickness, Postoperative Nausea & Vomiting (PONV) Past Psychological History: Anxiety Smoking Status: Never smoker Past Alcohol Use History: None Reported Past Drug Use History: None Reported - Past Family History Father Family Medical History: Cancer, Diabetes Mellitus Additional Family Medical History / Comment(s): cancerous polyp, prostate cancer Mother Family Medical History: Hypertension Additional Family Medical History / Comment(s): Mother had irregular heartbeat Medications and Allergies Home Medications Medication Instructions Recorded Confirmed Type Citalopram Hydrobromide [CeleXA] 40 mg PO HS 02/25/17 10/11/20 History Gabapentin 600 mg PO BID 02/25/17 10/11/20 History Cetirizine HCl [Zyrtec] 10 mg PO DAILY 11/14/17 10/11/20 History ALPRAZolam [Xanax] 0.5 mg PO HS 10/16/18 10/11/20 History Carvedilol [Coreg] 25 mg PO BID 10/16/18 10/11/20 History traZODone HCL [Desyrel] 100 mg PO HS 10/16/18 10/11/20 History Chlorthalidone [Hygroton] 25 mg PO DAILY 02/06/19 10/11/20 History Fluticasone/Umeclidin/Vilanter 1 puff INHALATION RT-DAILY 02/06/19 10/11/20 History [Trelegy Ellipta 100-62.5-25] Montelukast Sodium [Singulair] 10 mg PO DAILY 02/06/19 10/11/20 History Allopurinol [Zyloprim] 300 mg PO HS 08/22/20 10/11/20 History Famotidine 20 mg PO DAILY 08/22/20 10/11/20 History Insulin Detemir [Levemir Flextouch] 60 units SQ HS 08/22/20 10/11/20 History Insulin Lispro [humaLOG Kwikpen] 15 unit SQ DAILY 08/22/20 10/11/20 History Isosorbide Mononitrate [Ismo] 10 mg PO DAILY 08/22/20 10/11/20 History Losartan Potassium 100 mg PO DAILY 08/22/20 10/11/20 History Semaglutide [Ozempic] 0.25 mg SQ GARCIA 08/22/20 10/11/20 History traMADol HCL [Ultram] 50 mg PO DAILY PRN 08/22/20 10/11/20 History Acetaminophen Tab [Tylenol] 650 mg PO Q6H PRN 09/30/20 10/11/20 History Albuterol Sulfate [Albuterol 2 puff INHALATION RT-Q4H PRN 09/30/20 10/11/20 History Sulfate Hfa] Zolpidem Tartrate [Ambien] 10 mg PO HS 09/30/20 10/11/20 History cloNIDine HCL [Catapres] 0.2 mg PO BID 09/30/20 10/11/20 History hydrALAZINE HCL [Apresoline] 25 mg PO DAILY 09/30/20 10/11/20 History Vitamin D3 50,000iu 1,250 mcg PO Q30D 10/11/20 10/11/20 History Allergies Allergy/AdvReac Type Severity Reaction Status Date / Time hydrocodone [From [place]] Allergy Hallucinati Verified 10/11/20 15:00 ons/vomitin g Penicillins Allergy Anaphylaxis Verified 10/11/20 15:00 Sulfa (Sulfonamide Allergy Anaphylaxis Verified 10/11/20 15:00 Antibiotics) adhesive tape AdvReac Itching/swe Verified 10/11/20 15:00 lling cephalexin [From Keflex] AdvReac Unknown Verified 10/11/20 15:00 Childhood measles, mumps, and rubella AdvReac Rash/Hives Verified 10/11/20 15:00 vaccine shellfish derived [Shrimp] AdvReac Rash/Hives Verified 10/11/20 15:00 Cocqnnb-Yew-Yng Reductase AdvReac Unknown Verified 10/11/20 15:00 Inhibitor Physical Examination - Vital Signs Vital Signs: Vital Signs Temp Pulse Resp BP Pulse Ox 10/12/20 06:48 65 16 126/68 98 10/12/20 01:29 74 18 117/71 96 10/11/20 20:11 88 18 102/56 97 10/11/20 15:35 98.2 F 63 18 105/54 97 10/11/20 15:20 97.6 F 64 18 109/51 97 10/11/20 15:05 98.1 F 65 18 110/50 98 10/11/20 14:50 66 18 115/50 10/11/20 14:13 69 18 90/46 98 10/11/20 13:58 97.8 F 70 18 70/47 99 On examination patient is a middle aged female, in no acute distress patient is alert and awake oriented to time place and person. Speech is mildly dysarthric but no aphasia. On cranial examination pupils are symmetric, 3 mm, round and minimally reacting to light. Visual li reveal some peripheral visual field defect from a retinal detachment and diabetic retinopathy. Extraocular muscles are intact with no nystagmus. Patient has a very mild flattening of the right nasolabial fold. Tongue protrudes to the midline. Palatal elevation and sensation normal. Hearing and shoulder shrug normal, facial sensation normal. On muscle strength testing there is no pronator drift and the strength is normal in the arms and legs distally and proximally reflexes are 1+ in the upper limbs, 2+ at the knees, 1 at ankles and plantars are flat bilaterally. Sensory touch is equal with no neglect. No ataxia for [id number] testing, tone and bulk of muscles normal. No obvious bruit, S1- S2 audible, abdomen soft nontender. Chest is clear. No peripheral edema. Results - Laboratory Findings CBC and BMP: 10/11/20 14:31 10/11/20 14:31 Abnormal Lab Findings: Abnormal Labs 10/11/20 10/11/20 10/12/20 14:31 14:31 02:42 APTT 19.3 L Sodium 136 L Potassium 5.4 H BUN 108 H* Creatinine 3.04 H Glucose 114 H Total Protein 6.0 L Albumin 3.2 L Triglycerides 234 H HDL Cholesterol 18 L Assessment and Plan Assessment: * Probable acute to subacute ischemic stroke, left pontine region. * Hypertension * Diabetes * Acute on chronic renal insufficiency * Obesity * Recent history of Covid 19 pneumonia. Plan: * Patient will undergo MRI of the brain to evaluate for subacute stroke. * Patient will be started on dual antiplatelet medications for 21 days, then maintain on single antiplatelet agent. Patient states that she was not able to tolerate aspirin in the past because of stomach ulcers. May keep her on either aspirin or Plavix long-term. * We will check hemoglobin A1c * Fasting lipid panel revealed cholesterol 129, LDL 64, HDL 18 and triglycerides 234. Recommend Lipitor 10 mg daily, however statins are considered in her drug ALLERGY list. Will defer to PCP. * Carotid Doppler to rule out carotid stenosis. * Permissive hypertension. * 2-D echo showed no embolic source. * We will increase gabapentin to 300 mg once daily because of renal insufficiency. Once her renal functions improves, may increase gabapentin to 300 mg twice a day maximum dose. * PT OT and speech therapy. DVT prophylaxis.
[2020-10-12] MEDS ORDERED: traMADol 50 MG TAB PO PRN (13:12)
[2020-10-12] MEDS ORDERED: ACETAMINOPHEN TAB 325 MG TAB PO PRN (13:12)
[2020-10-12] MEDS: CLOPIDOGREL 75 MG TAB PO SCH (13:50)
[2020-10-12] MEDS: ASPIRIN 81 MG PO SCH (13:50)
[2020-10-12] MEDS: FAMOTIDINE 20 MG TAB PO SCH (13:50)
[2020-10-12 14:18] LABS: Glucose,Whole Blood 93 mg/dL (75-99)
--- NOTE | 2020-10-12 15:20 | CONS ---
CONSULTATION REASON FOR CONSULTATION: Renal failure. HISTORY OF PRESENT ILLNESS: Patient is a 55-year-old female with history of CKD stage 4, baseline creatinine about 2-2.5 mg/dL secondary to diabetic kidney disease and cardiorenal syndrome. Patient was recently discharged from the hospital after treatment for COVID-19 pneumonia. Her creatinine had been around 2.5-2.6 mg/dL and was 2.8-2.9 at the time of discharge. Patient was admitted to the hospital again about 5 days later with complaints off increased weakness and inability to talk. The patient was noted to have slurred speech. Her CAT scan was negative for any acute findings. The patient was given IV fluids and with time her speech has improved. Blood pressure was significantly low with systolic in the 70s at the time of admission. The patient denied any nausea, vomiting. No fevers or chills. No chest pains or shortness of breath, although she admitted that she had not been eating much prior to admission. She was maintained on losartan prior to admission. Overall, patient states she is feeling better. She has been voiding. PAST MEDICAL HISTORY: Chronic kidney disease stage 4, coronary artery disease, CHF, type 2 diabetes, recent COVID pneumonia and neuropathy, retinopathy, vitamin D deficiency, history of migraines, bronchitis, right ankle fracture. PAST SURGICAL HISTORY: , uterine ablation, EGD, cataract surgery, left eye surgery for retinal detachment, I and D of an abscess. SOCIAL HISTORY: Negative for smoking, drug abuse or alcohol abuse. MEDICATIONS: Medications prior to admission included Celexa, gabapentin, Zyrtec, Xanax, Desyrel, Coreg, Zyloprim, insulin, losartan, Ozempic, Ultram, Ambien, clonidine, hydralazine, vitamin D3, albuterol. ALLERGIES: Allergies are multiple include NORCO; PENICILLIN and SULFA, both of which cause anaphylaxis; ADHESIVE TAPE causes itching; CEPHALEXIN not known; MMR VACCINE causes rash and hives; SHRIMP, SHELLFISH cause rash and hives; STATINS cause muscle weakness. REVIEW OF SYSTEMS: As per HPI. Other systems negative. PHYSICAL EXAMINATION: Patient is comfortable, awake, not in any acute distress. Blood pressure this morning was 132/71, heart rate 71 per minute. She is afebrile. EXAMINATION OF THE HEART: S1, S2. EXAMINATION OF THE LUNGS: Bilateral breath sounds are heard. Abdomen is soft, nontender. Examination of lower extremities shows no significant edema. TEST LEAD exam grossly intact. LABS: Labs show sodium 136, potassium 5.4, chloride 105, CO2 is 23, BUN 108, creatinine 3.04. ASSESSMENT: 1. Acute kidney injury associated with hypotension hypoperfusion in the setting of use of angiotensin receptor blockers. I will hold off on the Cozaar for now. Repeat labs today and again in a.m. I agree with IV hydration. 2. Chronic kidney disease NKF stage 4 secondary to diabetic kidney disease and cardiorenal syndrome. Baseline creatinine about 2-2.5 mg/dL. 3. Recent COVID-19 pneumonia. 4. Left atrophic kidney noted on ultrasound previously. 5. Hypotension, weakness, improved post IV hydration. 6. Slurred speech, possible transient ischemic attack versus significant weakness associated with hypotension. 7. Hypertension with chronic kidney disease. Blood pressure significantly low on initial admission, currently improved. PLAN: Continue with IV fluids. Hold Cozaar. Repeat labs in a.m. Hold antihypertensive medications for systolic blood pressure less than 110 mmHg. I will add parameters on Coreg and hydralazine if blood pressure remains low, currently it is much improved. Repeat labs in a.m. Thank you for this consultation. Will continue to follow the patient with you during her hospitalization. MMODL / IJN: [id number] /
[2020-10-12] MEDS: carvediloL 12.5 MG TAB PO SCH (17:01)
--- NOTE | 2020-10-12 18:45 | ECHOF ---
Referral Reason:Thrombus MEASUREMENTS -------- HEIGHT: 167.6 cm WEIGHT: 108.9 kg BP: 126/68 IVSd: 2.4 cm (0.6 - 1.1) LVIDd: 3.8 cm (3.9 - 5.3) LVPWd: 2.0 cm (0.6 - 1.1) EDV(Teich): 62 ml IVSs: 2.6 cm LVIDs: 2.3 cm LVPWs: 3.1 cm %IVS Thck: 8 % ESV(Teich): 18 ml EF(Teich): 71 % %FS: 39 % SV(Teich): 44 ml FINDINGS -------- Sinus rhythm. Limited Study The left ventricular size is normal. There is severe concentric left ventricular hypertrophy. Ove rall left ventricular systolic function is normal with, an EF between 60 - 65 %. There is a small, generalized pericardial effusion present. CONCLUSIONS -------- 1. The left ventricular size is normal. 2. There is severe concentric left ventricular hypertrophy. 3. Overall left ventricular systolic function is normal with, an EF between 60 - 65 %. 4. There is a small, generalized pericardial effusion present. ANALYTIC PROGRAMMER: Amna Alvarado RDCS
--- NOTE | 2020-10-12 20:05 | MR ---
MRI OF THE BRAIN WO History: Follow-up stroke. COMPARISON: CT 10/11/2020. TECHNIQUE: Multiplanar multisequence MR imaging of the brain was obtained without the use of IV cont rast. FINDINGS: No restricted diffusion is noted to suggest acute ischemic infarct.No acute intracranial hemorrhage o r abnormal extra-axial fluid collection are noted.There is no midline shift or mass effect. There is scattered moderate white matter T2 FLAIR hyperintensities to include the sunil. There is mild parenchy mal volume loss. Visualized vascular flow voids are unremarkable. Visualized paranasal sinuses and mastoid air cells are patent and aerated. IMPRESSION: No acute infarct or other intracranial abnormality. Chronic microvascular ischemic changes.
--- NOTE | 2020-10-12 20:35 | HP ---
HISTORY AND PHYSICAL CHIEF COMPLAINT: Dysarthria. HISTORY OF PRESENT ILLNESS: This is another recent admission for this 55-year-old obese white female. She was in the hospital recently for congestive heart failure and COVID. While in the hospital, her blood pressure would be quite high when she was lying down, and then she would be become orthostatic when she got up. This was eventually straightened out and she was doing well when she went home with good control of her systolic and diastolic blood pressures. Blood sugars were also brought under good control. She had no problems with her SARS COV2 infection. She went home and apparently was doing well and then suddenly she had difficulty speaking. She was slightly confused and she had no definite focal neurologic deficits that she can remember, but her blood pressure was only 70 systolically. She was brought to the emergency room, where her blood pressure was raised and her symptoms cleared. REVIEW OF SYSTEMS: She denies any headaches, difficulty with vision or hearing, chest pain, cough, hemoptysis, palpitations, abdominal pain, nausea, vomiting, fever, chills, etc. Past medical history, family history, and personal and social histories are all otherwise unremarkable or noncontributory or unchanged. PHYSICAL EXAMINATION: At this time her blood pressure is 106/69 with a pulse of 83, respirations of 24, and she is afebrile. In general she appeared to be obese and in no acute distress. Skin color was normal. Skin was warm and dry. Lymph nodes were not enlarged. Head, ears, eyes, nose, mouth and throat were normal and neck veins were not distended. Carotids were normal. Chest was clear. Cardiac exam was normal. The abdomen was soft and protuberant. Extremities were normal. Neurologically she is intact. She is admitted to the hospital with the diagnoses: 1. Transient ischemic attack secondary to hypotension. 2. History of hypertension. 3. Insulin-dependent diabetes mellitus. 4. Recent COVID infection. 5. Obesity. PLAN: 1. Bedrest. 2. IV fluids. 3. Withhold antihypertensives. 4. Increase activity and monitor her lying and standing blood pressures. MMODL / IJN: [id number] /
--- NOTE | 2020-10-12 20:39 | PN ---
PROGRESS NOTE CHIEF COMPLAINT: TIA and hypotension. HISTORY OF PRESENT ILLNESS: This lady is doing much better. Blood pressures systolic are running above 120 and all of her neurologic symptoms have disappeared. She has no headaches, focal problems, chest pain etc. PHYSICAL EXAMINATION: Chest is clear. The cardiac exam is normal. The abdomen is soft and nontender. Neurologically she is intact. IMPRESSION: 1. Orthostatic hypotension. 2. Transient ischemic attack secondary to hypotension. 3. History of hypertension. 4. Insulin-dependent diabetes. PLAN: Progress activity and diet. MMODL / IJN: [id number] /
[2020-10-12] MEDS ORDERED: ALPRAZolam 0.5 MG TAB PO SCH (21:00)
[2020-10-12] MEDS: SYMBICORT 80-4.5 MCG INHALER INHALATION SCH (21:52)
[2020-10-12 22:08] LABS: Glucose,Whole Blood 129 mg/dL (75-99)
[2020-10-12] MEDS: traZODone HCL 100 MG TAB PO SCH (22:57)
[2020-10-12] MEDS: CITALOPRAM HYDROBROMIDE 20 MG TAB PO SCH (22:57)
[2020-10-12] MEDS: allopurinoL 300 MG TAB PO SCH (22:57)
[2020-10-12] MEDS: GABAPENTIN 300 MG CAP PO SCH (22:57)
[2020-10-12] MEDS: ALPRAZolam 0.5 MG TAB PO SCH (22:57)
[2020-10-12] MEDS: INSULIN DETEMIR (LEVEMIR) 100 UNIT/ML SYR SQ SCH (22:57)
[2020-10-12] MEDS: ZOLPIDEM 10 MG TAB PO SCH (22:57)
[2020-10-13] MEDS: SODIUM CHLORIDE 0.9% 1,000 ML IV SCH ×2 (04:35→22:05)
[2020-10-13 07:20] LABS: Glucose,Whole Blood 130 mg/dL (75-99)
[2020-10-13] MEDS: SYMBICORT 80-4.5 MCG INHALER INHALATION SCH ×2 (07:20→20:20)
[2020-10-13] MEDS: carvediloL 12.5 MG TAB PO SCH ×2 (07:20→17:32)
[2020-10-13] MEDS: INSULIN ASPART (NovoLOG) 100 UNIT/ML VIAL SQ SCH (07:22)
--- NOTE | 2020-10-13 08:37 | CDI ---
Documentation Clarification Form Date: 10/13/2020 08:19:51 AM From: Hilda SolomonBacaKANWAL rand, CCDS Admit Date: 10/11/2020 04:49:00 PM Patient Name: Alexandra Taylor Visit Number: [id number] Discharge Date: ATTENTION: The Clinical Documentation Specialists (CDI) and [facility] Coding Staff appreciate your assistance in clarifying documentation. Please respond to the clarification below the line at the bottom and electronically sign. The CDI & [facility] Coding staff will review the response and follow-up if needed. Please note: Queries are made part of the Legal Health Record. If you have any questions, please contact the author of this message via ITS. Dr. Robbie Nieves: Additional information regarding the diagnosis of CHF is requested. Per the 10/12 History & Physical: This is another admission for this 55-year-old obese white female. She was in the hospital recently for congestive heart failure and COVID. Per the 10/12 Nephrology Consult: Chronic kidney disease stage 4, coronary artery disease, CHF. Heart Failure without further specificity is also documented in the patient's Past Medical history in the 10/11 ED Note and the 10/12 Neurology Consult. History/Risk Factors per the 10/11 ED Note Past Medical History: CAD, heart Failure, GERD, Hyperlipidemia, Hypertension, Diabetes, CKD IV, Pneumonia. Clinical Indicators: Presented to the ED on 10/11 with lightheadedness and slurred speech. Symptoms began at approximately 1 PM. Recently discharged having COVID pneumonia. 10/11 VS: T 97.8, P 70 - 66, R 18, BP 70/47 - 115/50, PO 99 RA, BMI: 40.0 10/11 LAB: APTT 19.3, Na 136, K 5.4, BUN 108, Creatinine 3.04, Glucose 114, Hgb A1c 7.2, total Protein 6.0, Albumin 3.2 BNP not done. 10/12 ECHO: Severe concentric left ventricular hypertrophy, Overall left ventricular systolic function is normal with EF 60-65%, Small, generalized pericardial effusion. 10/08 ECHO (previous admission): Severe concentric LVH, Left ventricular systolic function is normal w/EF between 60-65%, Mild aortic valve sclerosis, Mild RM & TR, Trivial pericardial effusion. 10/11 CXR: Normal chest. Treatment 10/11: IV fluid 1,000 mls @ 999 mls/hr q1H, IV fluid 1,000 mls @ 75 mls/hr q13H, po Aspirin 325 mg x1, po Aspirin 81 mg daily, po Plavix, INH Symbicort. Home meds: Zyloprim, Aspirin, INH Symbicort, Coreg, Hygroton, Celexa, Plavix, Apresoline, Insulin sq, Ismo, Claritin, Singulair, Ozempic, Ultram, Desyrel Cardiology is not consulted this admission. In your professional opinion, can you please clarify the following: [ ] CHF is ruled out [ ] Chronic Diastolic Heart Failure (preserved EF) [ ] Other specificity of CHF, please specify [ ] Unable to determine (Template Last Revised: August 2020) MTDD
--- NOTE | 2020-10-13 08:43 | CDI ---
Documentation Clarification Form Date: 10/13/2020 08:38:00 AM From: Hilda BacaKANWAL rand, CCDS Admit Date: 10/11/2020 04:49:00 PM Patient Name: Alexandra Taylor Visit Number: [id number] Discharge Date: ATTENTION: The Clinical Documentation Specialists (CDI) and [facility] Coding Staff appreciate your assistance in clarifying documentation. Please respond to the clarification below the line at the bottom and electronically sign. The CDI & [facility] Coding staff will review the response and follow-up if needed. Please note: Queries are made part of the Legal Health Record. If you have any questions, please contact the author of this message via ITS. Dr. Cyril Young: Additional information is requested regarding the documented asthma. Per the 10/12 Neurology Consult: Patient never smoked because of asthma. (Asthma is not documented elsewhere in the chart.) History/Risk Factors per the 10/11 ED Note Past Medical History: CAD, heart Failure, GERD, Hyperlipidemia, Hypertension, Diabetes, CKD IV, Pneumonia. Clinical Indicators: Presented to the ED on 10/11 with lightheadedness and slurred speech. Symptoms began at approximately 1 PM. Recently discharged having COVID pneumonia. 10/11 VS: T 97.8, P 70 - 66, R 18, BP 70/47 - 115/50, PO 99 RA, BMI: 40.0 10/11 LAB: APTT 19.3, Na 136, K 5.4, BUN 108, Creatinine 3.04, Glucose 114, Hgb A1c 7.2, total Protein 6.0, Albumin 3.2 10/12 ECHO: Severe concentric left ventricular hypertrophy, Overall left ventricular systolic function is normal with EF 60-65%, Small, generalized pericardial effusion. 10/11 CXR: Normal chest. Treatment 10/11: IV fluid 1,000 mls @ 999 mls/hr q1H, IV fluid 1,000 mls @ 75 mls/hr q13H, po Aspirin 325 mg x1, po Aspirin 81 mg daily, po Plavix, INH Symbicort. Home meds: Zyloprim, Aspirin, INH Symbicort, Coreg, Hygroton, Celexa, Plavix, Apresoline, Insulin sq, Ismo, Claritin, Singulair, Ozempic, Ultram, Desyrel Please clarify the type and severity of asthma, if known: [ ] Mild intermittent asthma [ ] without exacerbation [ ] Mild persistent asthma [ ] without exacerbation [ ] Moderate persistent asthma [ ] without exacerbation [ ] Other, please specify ____ [ ] Unable to determine (Template Last Revised: September 2020) Patient has mild intermittent asthma. Without exacerbation. Patient has history of asthma since age 11. It is controlled most of the time. Only with season changes, some times with rough day, she has to take inhalers. MD JUAN MANUEL PhilipD
[2020-10-13] MEDS ORDERED: FAMOTIDINE 20 MG TAB PO SCH (09:00)
[2020-10-13] MEDS ORDERED: CHLORTHALIDONE 25 MG TAB PO SCH (09:00)
[2020-10-13] MEDS ORDERED: LOSARTAN 50 MG TAB PO SCH (09:00)
[2020-10-13] MEDS: ASPIRIN 81 MG PO SCH (10:45)
[2020-10-13] MEDS: MONTELUKAST 10 MG TAB PO SCH (10:45)
[2020-10-13] MEDS: hydrALAZINE HCL 25 MG TAB PO SCH (10:45)
[2020-10-13] MEDS: ISOSORBIDE MONONITRATE 10 MG TAB PO SCH (10:45)
[2020-10-13] MEDS: FAMOTIDINE 20 MG TAB PO SCH (10:45)
[2020-10-13] MEDS: LORATADINE 10 MG TAB PO SCH (10:45)
[2020-10-13] MEDS: GABAPENTIN 300 MG CAP PO SCH ×2 (10:45→21:24)
[2020-10-13] MEDS: CLOPIDOGREL 75 MG TAB PO SCH (10:46)
[2020-10-13 11:34] LABS: Calcium 8.5 mg/dL (8.4-10.2); Potassium 4.2 mmol/L (3.5-5.1)
[2020-10-13 12:35] LABS: Glucose,Whole Blood 177 mg/dL (75-99)
--- NOTE | 2020-10-13 14:12 | P.PN ---
Subjective Progress Note Date: 10/13/20 patient was seen for a follow-up. Patient states her symptoms have improved, her speech is better. No new focal symptoms. No headaches. telemetry monitoring showing sinus rhythm. No arrhythmia Objective - Vital Signs Vital signs: Vital Signs Temp 97.3 F L 10/13/20 08:00 Pulse 78 10/13/20 08:00 Resp 18 10/13/20 08:00 BP 137/63 10/13/20 08:00 Pulse Ox 95 10/13/20 08:00 Intake & Output 10/12/20 10/13/20 10/13/20 18:59 06:59 18:59 Intake Total 240 Balance 240 Weight 108.862 kg 112.5 kg Intake: Oral 240 Other: Voiding Method Toilet # Voids 1 1 - Exam patient's mental status is normal. Speech is much improved. Patient states her speech has improved. Denies any headache. Pupils are round and reacting to light. Visual li are full. Extraocular muscles are intact. Face is symmetric, tongue protrudes to the midline. On muscle strength testing patient has right pronator drift. The strength however is normal in both arms and legs distally and proximally except right hip flexion which is 5-as compared to the left. Sensations are equal with no neglect. No ataxia for [id number] testing. Tone and bulk of muscles normal. - Labs CBC & Chem 7: 10/11/20 14:31 10/13/20 10:52 Labs: Abnormal Lab Results - Last 24 Hours (Table) 10/11/20 10/12/20 10/13/20 Range/Units 14:31 22:06 07:18 Chloride (98-107) mmol/L BUN (7-17) mg/dL Creatinine (0.52-1.04) mg/dL Glucose (74-99) mg/dL POC Glucose (mg/dL) 129 H 130 H (75-99) mg/dL Hemoglobin A1c 7.2 H (4.0-6.0) % 10/13/20 10/13/20 Range/Units 10:52 12:30 Chloride 108 H (98-107) mmol/L BUN 79 H (7-17) mg/dL Creatinine 2.82 H (0.52-1.04) mg/dL Glucose 184 H (74-99) mg/dL POC Glucose (mg/dL) 177 H (75-99) mg/dL Hemoglobin A1c (4.0-6.0) % Assessment and Plan Assessment: * Probable stroke/TIA manifesting with dysarthria and right-sided weakness. apparently patient still has symptoms, with right sided weakness, but MRI of the brain is negative. * Hypertension * Diabetes * Acute on chronic renal insufficiency * Obesity * Recent history of Covid 19 pneumonia. Plan: * MRI of the brain negative for any acute stroke. Showing some small vessel disease in the upper sunil region. * Continue dual antiplatelet medications for 21 days, then maintain on single antiplatelet agent. Patient states that she was not able to tolerate aspirin in the past because of stomach ulcers. May keep her on either aspirin or Plavix long-term. * Hemoglobin A1c 7.2, much better. Continue present management for diabetes. Target A1c < 7.0. * Fasting lipid panel revealed cholesterol 129, LDL 64, HDL 18 and triglycerides 234. Recommend Lipitor 10 mg daily, however statins are considered in her drug ALLERGY list. Will defer to PCP. * Carotid Doppler revealed atherosclerotic changes with no significant vascular stenosis. * 2-D echo showed no embolic source. * Decrease gabapentin to 300 mg twice a day due to renal insufficiency. * Neurologically clear, if cleared medically.
--- NOTE | 2020-10-13 16:31 | PN ---
PROGRESS NOTE Patient is seen for followup for acute kidney injury. She was admitted with increased weakness, possible TIA and also severe hypotension. Systolic blood pressure was in the 70s. Patient's creatinine was elevated at 3.0 from baseline of about 2.5 to 2.7 mg/dL. She has been maintained on IV fluids. Blood pressure is improved. Overall she is feeling better, and today the creatinine is down to 2.8. PHYSICAL EXAMINATION: On examination today, blood pressure 137/63, heart rate 78 per minute. She is afebrile. EXAMINATION OF THE HEART: S1 and S2. EXAMINATION OF LUNGS: Decreased breath sounds at bases. ABDOMEN: Soft, non-tender. Examination of lower extremities shows no significant edema. [employer] exam is grossly intact. LABS: Sodium 139, potassium 4.2, chloride 108, BUN 79, creatinine 2.8. ASSESSMENT: 1. Acute kidney injury, prerenal, associated with hypotension and some degree of hypovolemia, improved with IV hydration. I will hold off on the chlorthalidone as well for now. 2. Hypotension, improved with decreasing antihypertensive medications and giving IV fluids. 3. Chronic kidney disease, NKF stage IV. Baseline creatinine 2 to 2.5 mg/dL. 4. Possible transient ischemic attack. PLAN: Hold chlorthalidone. Continue with IV fluids. Encourage increased oral intake. I will discontinue the IV fluids in a.m. Hold off on angiotensin receptor blockers for now, and we can resume as outpatient once patient's renal function is stable. MMODL / IJN: [id number] /
[2020-10-13 17:12] LABS: Glucose,Whole Blood 233 mg/dL (75-99)
[2020-10-13 20:47] LABS: Glucose,Whole Blood 213 mg/dL (75-99)
[2020-10-13] MEDS: CITALOPRAM HYDROBROMIDE 20 MG TAB PO SCH (21:24)
[2020-10-13] MEDS: allopurinoL 300 MG TAB PO SCH (21:24)
[2020-10-13] MEDS: traZODone HCL 100 MG TAB PO SCH (21:24)
[2020-10-13] MEDS: ALPRAZolam 0.5 MG TAB PO SCH (21:25)
[2020-10-13] MEDS: ZOLPIDEM 10 MG TAB PO SCH (21:25)
[2020-10-13] MEDS: INSULIN DETEMIR (LEVEMIR) 100 UNIT/ML SYR SQ SCH (21:25)
[2020-10-13 21:52] VITALS: RESP 16
--- NOTE | 2020-10-13 23:07 | PN ---
PROGRESS NOTE CHIEF COMPLAINT: Hypotension and TIA. HISTORY OF PRESENT ILLNESS: This lady seems to be doing better. She does notice that she is having a little bit of trouble with speech and at times has a little bit of difficulty using her right arm. It is possible that she has sustained a mild CVA. She has no headache, chest pain, etc. Vision seems to be normal. PHYSICAL EXAMINATION: Her chest is clear. Cardiac exam is normal. The abdomen is soft and nontender. Neurologically she seems to be intact, but occasionally she stumbles a little bit with her speech. IMPRESSION: 1. Episode of hypotension. 2. Transient ischemic attack. 3. ? Cerebrovascular accident. PLAN: 1. Physical, occupational and speech therapy. 2. Increase activity. 3. Probably home in the next day or two. MMODL / IJN: [id number] /
[2020-10-14] MEDS: SODIUM CHLORIDE 0.9% 1,000 ML IV SCH (06:10)
[2020-10-14] MEDS: carvediloL 12.5 MG TAB PO SCH (06:53)
[2020-10-14] MEDS: SYMBICORT 80-4.5 MCG INHALER INHALATION SCH (07:19)
[2020-10-14 07:30] LABS: Glucose,Whole Blood 60 mg/dL (75-99)
[2020-10-14] MEDS: INSULIN ASPART (NovoLOG) 100 UNIT/ML VIAL SQ SCH (07:36)
[2020-10-14 07:47] LABS: Glucose,Whole Blood 86 mg/dL (75-99)
--- NOTE | 2020-10-14 08:18 | CDI ---
Documentation Clarification Form Date: 10/14/2020 08:06:30 AM From: Hilda SolomonBacaKANWAL rand, CCDS Admit Date: 10/11/2020 04:49:00 PM Patient Name: Alexandra Taylor Visit Number: [id number] Discharge Date: ATTENTION: The Clinical Documentation Specialists (CDI) and [facility] Coding Staff appreciate your assistance in clarifying documentation. Please respond to the clarification below the line at the bottom and electronically sign. The CDI & [facility] Coding staff will review the response and follow-up if needed. Please note: Queries are made part of the Legal Health Record. If you have any questions, please contact the author of this message via ITS. Dr. Robbie Nieves: There is documentation of a TIA and a CVA in the 10/13 Attending Progress Note Impression. History/Risk Factors per the 10/11 ED Note History of Present Illness: Hypertension, CHF, COVID Pneumonia, CKD, IDDM, Diabetic Neuropathy & Retinopathy, Obesity, BMI 40.0, CAD, Hyperlipidemia, GERD. Clinical Indicators: Presented to the ED on 10/11 with weakness, low BP, lightheadedness and slurred speech. Recently discharged from the hospital after being treated for COVID pneumonia. Admitted with CVA, ORALIA & Uremic Encephalopathy. 10/12 History & Physical Impression: TIA secondary to Hypotension. 10/12 Neurology Consult: Probable Acute to Subacute Ischemic Stroke, Left [place] Region. 10/12 Neurology Progress Note: Probable stroke/TIA manifesting with dysarthria and right-sided weakness. Apparently patient still has symptoms, with right sided weakness, but MRI of the brain is negative. 10/11 CT Brain: Negative unenhanced head CT scan. 10/12 US Carotids: Atherosclerotic changes with no significant hemodynamic stenosis bilaterally. 10/12 MRI Brain: No acute infarct or other intracranial abnormality. Chronic microvascular ischemic changes. Treatment 10/11: IV fluid 1,000 mls @ 999 mls/hr q1H, IV fluid 1,000 mls @ 75 mls/hr q13H, po Aspirin 325 mg x1. In your professional opinion, please clarify the following: [ ] CVA [ ] TIA [ ] Other, please specify [ ] Unable to determine (Template Last Revised: September 2020) MTDD
[2020-10-14] MEDS: CLOPIDOGREL 75 MG TAB PO SCH (08:50)
[2020-10-14] MEDS: ASPIRIN 81 MG PO SCH (08:50)
[2020-10-14] MEDS: ISOSORBIDE MONONITRATE 10 MG TAB PO SCH (08:51)
[2020-10-14] MEDS: hydrALAZINE HCL 25 MG TAB PO SCH (08:51)
[2020-10-14] MEDS: GABAPENTIN 300 MG CAP PO SCH (08:51)
[2020-10-14] MEDS: LORATADINE 10 MG TAB PO SCH (08:51)
[2020-10-14] MEDS: MONTELUKAST 10 MG TAB PO SCH (08:51)
[2020-10-14] MEDS: FAMOTIDINE 20 MG TAB PO SCH (08:51)
[2020-10-14 11:45] VITALS: BP 153/82; PULSE 71; TEMP 97.6
[2020-10-14 12:00] LABS: Calcium 8.7 mg/dL (8.4-10.2); Potassium 4.3 mmol/L (3.5-5.1)
[2020-10-14 12:10] LABS: Glucose,Whole Blood 99 mg/dL (75-99)
--- NOTE | 2020-10-14 19:37 | PN ---
PROGRESS NOTE Patient is seen for followup for acute kidney injury on top of chronic kidney disease. She is currently doing well. Patient denies any significant complaints. Renal function has improved with creatinine down to 2.4 today. Patient has been maintained on IV fluids. PHYSICAL EXAMINATION: Blood pressure was 153/82, heart rate 71 per minute she is afebrile. Examination of the heart S1, S2. Examination of the lungs, bilateral breath sounds are heard. Abdomen is soft, nontender. Examination of the lower extremities shows no significant edema. [facility] exam grossly intact. LAB: Show sodium 141, potassium 4.3, chloride 109, BUN 61, creatinine 2.42. ASSESSMENT: 1. Acute kidney injury secondary to hypotension, currently improving. 2. Slurred speech, possible transient ischemic attack associated with significant hypotension and hypoperfusion. No acute findings on CT of the brain, being followed by Neurology. 3. Chronic kidney disease stage IV. Baseline creatinine about 2-2.5 mg/dL. 4. Hypotension, improved with decreasing antihypertensive medications and status post IV fluids. Patient is advised to monitor her blood pressure at home and may need further adjustment of her antihypertensive regimen. PLAN: Discontinue IV fluids. Patient could be discharged from nephrology standpoint. MMODL / IJN: [id number] /
[2020-10-14] MEDS ORDERED: INSULIN DETEMIR (LEVEMIR) 100 UNIT/ML SYR SQ SCH (21:00)
--- NOTE | 2020-10-14 23:50 | DS ---
DISCHARGE SUMMARY CHIEF COMPLAINT: Hypotension and TIA. HISTORY OF PRESENT ILLNESS AND PHYSICAL EXAMINATION: Details of this lady's history and physical can be found in the initial workup. LABORATORY STUDIES: While she was in the hospital, she had laboratory studies, details of which can be found in the laboratory section of her chart. COURSE IN THE HOSPITAL: After admission, she was placed on bedrest, started on intravenous fluids and blood pressure was elevated. Neurologic symptoms almost completely disappeared, but she did have some residual with minimal speech slurring and is somewhat uncoordinated movements of the right upper extremity. These are improving with PT, OT and speech therapy. It was felt that she could go home on the and she will go home on her usual activity, diet, medication, and her antihypertensives will be decreased. She will be followed up in a day or so and she will also be followed by home care. FINAL DIAGNOSES: 1. Left-sided cerebrovascular accident. 2. Episode of hypotension. 3. History of hypertension. 4. Poorly controlled insulin-dependent diabetes mellitus. 5. Obesity. OPERATIONS: None. CONSULTATIONS: Neurology. She is improved. MMODL / IJN: [id number] /
--- NOTE | 2020-10-15 00:03 | P.PN ---
Subjective Progress Note Date: 10/14/20 patient was seen for a follow-up. Patient is complaining of weakness in the hands, right side slightly worse. Patient states her legs feel weird to walk. Patient states that she has history of asthma since she was age 11. It is controlled at this time. Only when the season changes, and when she has some rough day, she has to take the inhaler. Telemetry monitoring showing sinus rhythm. No arrhythmia Objective - Vital Signs Vital signs: Vital Signs Temp 97.6 F 10/14/20 11:43 Pulse 71 10/14/20 11:43 Resp 16 10/14/20 14:00 BP 153/82 10/14/20 11:43 Pulse Ox 97 10/14/20 11:43 Intake & Output 10/13/20 10/14/20 10/14/20 18:59 06:59 18:59 Intake Total 1620 30 386 Balance 1620 30 386 Weight 112.5 kg Intake: IV 30 Invasive Line 1 10 Invasive Line 2 10 Invasive Line 3 10 Intake, IV Titration 900 150 Amount Sodium Chloride 0.9% 1, 900 150 000 ml @ 75 mls/hr IV . [id number] [facility] Rx#:[id number] Oral 720 236 Other: Voiding Method Toilet Toilet # Voids 1 2 2 - Exam patient's mental status is normal. Speech is much improved. Patient states her speech has improved. Denies any headache. Pupils are round and reacting to light. Visual li are full. Extraocular muscles are intact. Face is symmetric, tongue protrudes to the midline. On muscle strength testing patient has right pronator drift. The strength however is normal in both arms and legs distally and proximally except right hip flexion which is 5-as compared to the left. Sensations are equal with no neglect. No ataxia for [id number]-eg-stph testing. Tone and bulk of muscles normal. - Labs CBC & Chem 7: 10/11/20 14:31 10/14/20 11:14 Labs: Abnormal Lab Results - Last 24 Hours (Table) 10/13/20 10/13/20 10/14/20 Range/Units 17:10 20:44 07:27 Chloride (98-107) mmol/L BUN (7-17) mg/dL Creatinine (0.52-1.04) mg/dL POC Glucose (mg/dL) 233 H 213 H 60 L (75-99) mg/dL 10/14/20 Range/Units 11:14 Chloride 109 H (98-107) mmol/L BUN 61 H (7-17) mg/dL Creatinine 2.42 H (0.52-1.04) mg/dL POC Glucose (mg/dL) (75-99) mg/dL Assessment and Plan Assessment: * Probable stroke/TIA manifesting with dysarthria and right-sided weakness. A pparently patient still has symptoms, with right sided weakness, but MRI of the brain is negative. * Hypertension * Diabetes * Acute on chronic renal insufficiency * Obesity * Recent history of Covid 19 pneumonia. Plan: * MRI of the brain negative for any acute stroke. Showing some small vessel disease in the upper sunil region. * Continue dual antiplatelet medications for 21 days, then maintain on single antiplatelet agent. Patient states that she was not able to tolerate aspirin in the past because of stomach ulcers. May keep her on either aspirin or Plavix long-term. * Hemoglobin A1c 7.2, much better. Continue present management for diabetes. Target A1c < 7.0. * Fasting lipid panel revealed cholesterol 129, LDL 64, HDL 18 and triglycerides 234. Recommend Lipitor 10 mg daily, however statins are considered in her drug ALLERGY list. Will defer to PCP. * Carotid Doppler revealed atherosclerotic changes with no significant vascular stenosis. * 2-D echo showed no embolic source. * Decrease gabapentin to 300 mg twice a day due to renal insufficiency. * Neurologically clear, if cleared medically.
[2020-10-18] MEDS ORDERED: NON FORMULARY DRUG (Semaglutide [Ozempic] 0.25 MG/0.2 ML Pen.Injctr) SQ SCH (09:00)
--- NOTE | 2020-10-19 11:15 | MISC ---
MISCELLANOUS REPORT QUERY: Chronic diastolic heart failure. MMODL / IJN: [id number] /
--- NOTE | 2020-10-19 11:20 | MISC ---
MISCELLANOUS REPORT QUERY: YANIQUE. MMODL / IJN: [id number] /
== END 2020-10-14 15:12 | disposition home health service (06) | DRG 65 ==
LOC: EC 13:52 → 3SCARD 16:49
PROVIDERS: ADMIT Family Medicine; ATTEND Family Medicine
DX: I63.9 Cerebral infarction, unspecified (principal); N17.9 Acute kidney failure, unspecified; I13.0 Hypertensive heart and chronic kidney disease with heart failure and stage 1 through stage 4 chronic kidney disease, or unspecified chronic kidney disease; Z68.41 Body mass index [BMI] 40.0-44.9, adult; N18.4 Chronic kidney disease, stage 4 (severe); I50.32 Chronic diastolic (congestive) heart failure; G93.49 Other encephalopathy; R47.81 Slurred speech; Z86.16 Personal history of COVID-19; Z79.4 Long term (current) use of insulin; I25.10 Atherosclerotic heart disease of native coronary artery without angina pectoris; E11.40 Type 2 diabetes mellitus with diabetic neuropathy, unspecified; E11.22 Type 2 diabetes mellitus with diabetic chronic kidney disease; E66.9 Obesity, unspecified; I35.8 Other nonrheumatic aortic valve disorders; J45.20 Mild intermittent asthma, uncomplicated; I95.1 Orthostatic hypotension; E86.1 Hypovolemia; R29.701 NIHSS score 1; Z83.3 Family history of diabetes mellitus; Z82.49 Family history of ischemic heart disease and other diseases of the circulatory system; Z87.01 Personal history of pneumonia (recurrent); Z87.11 Personal history of peptic ulcer disease; Z86.73 Personal history of transient ischemic attack (TIA), and cerebral infarction without residual deficits; R13.10 Dysphagia, unspecified; H54.7 Unspecified visual loss; E78.5 Hyperlipidemia, unspecified; E11.65 Type 2 diabetes mellitus with hyperglycemia; E11.319 Type 2 diabetes mellitus with unspecified diabetic retinopathy without macular edema
CPT/HCPCS: 36415; 70450; 70551; 71045; 80048; 80053; 80061; 83036; 84484; 85025; 85610; 85730; 93005; 93308; 93880; 94640; 94760; 96360; 99285

== ENCOUNTER → 2020-11-20 | Day surgery (SDC) | payer BC, MEDICARE ==
[2020-11-17 13:44] VITALS: BMI 40.7
[~2020-11-20] MED LIST changes: -LACTATED RINGERS 1,000 ML IV SCH; +MIDAZOLAM 2 MG/2 ML VIAL IVP ONE; +SODIUM CHLORIDE 0.9% 1,000 ML IV ONE; +fentaNYL (PF) 50 MCG/ML 2 ML AMP IVP ONE; +fentaNYL (PF) 50 MCG/ML 2 ML AMP ONE; +hydrALAZINE HCL 20 MG/ML 1 ML VIAL IVP STA
[2020-11-20 06:49] LABS: Glucose,Whole Blood 139 mg/dL (75-99)
[2020-11-20 07:01] VITALS: RESP 16; TEMP 98.4
[2020-11-20] MEDS: BENZOCAINE SPRAY 1 CAN TOPICAL ONE ×3 (07:41→08:01)
[2020-11-20 11:27] VITALS: BP 167/71; PULSE 78
--- NOTE | 2020-11-20 12:12 | ECHOT ---
TRANSESOPHAGEAL ECHOCARDIOGRAM PERFORMING PHYSICIAN: Arun Kenny MD. PROCEDURE PERFORMED: Transesophageal echocardiogram. INDICATION: TIA. COMPLICATION: None. LEVEL OF SEDATION: Moderate with sedation length of 15 minutes. PROCEDURE DESCRIPTION: After obtaining an informed consent, explaining the procedure, benefits, risks, complications and alternatives, the patient was brought to the transesophageal echocardiogram suite. A pulse oximetry and heart rate monitors were attached to the patient prior to the procedure. The patient's throat was sprayed using lidocaine locally. Following that, the patient was turned into left lateral position. A bite guard was placed and the patient was then sedated with the above doses of Versed and fentanyl in divided doses. Following that, the transesophageal echocardiogram probe was advanced through the bite guard into the mid esophagus where 2-D echocardiogram images as well as color Doppler images of various cardiac structures were obtained. We evaluated the interatrial septum using 2-D echocardiogram, color Doppler, and contrast study. The procedure was completed. There were no complications. The NO was performed using a 2D echocardiogram, color Doppler, pulse Doppler and continuous wave Doppler. FINDINGS: The left ventricular dimension appeared to be within normal limits. The left ventricular systolic function appeared to be mildly impaired with EF around 45%. There is eccentric LVH that was seen mainly in the basal septum. The right ventricle appeared to be of normal size and function. The left atrium appeared to be within normal limits for dimension. The aortic valve appeared to be trileaflet valve without stenosis or regurgitation with mild aortic insufficiency. The mitral valve seems to be normal with mild MR. The interatrial septum appeared to be intact. The left atrial appendage was not well seen. CONCLUSION: 1. Mildly impaired LV function with EF between 45-50%. 2. Eccentric LVH mainly in the basal septum. 3. Normal right ventricular dimension and systolic function. 4. No evidence of cardiac source of embolization. 5. Intact interatrial septum without evidence of shunt. 6. Aortic sclerosis without stenosis with mild insufficiency. 7. Thickened mitral valve leaflets with mild mitral regurgitation. 8. Small circumferential pericardial effusion. MMODL / IJN: [id number] /
== END ==
LOC: CATHCVL 06:21
PROVIDERS: ATTEND Internal Medicine Interventional Cardiology
DX: I08.0 Rheumatic disorders of both mitral and aortic valves (principal); I31.3 Pericardial effusion (noninflammatory); I69.398 Other sequelae of cerebral infarction; I25.10 Atherosclerotic heart disease of native coronary artery without angina pectoris; I10 Essential (primary) hypertension; E11.9 Type 2 diabetes mellitus without complications; E78.5 Hyperlipidemia, unspecified; Z82.49 Family history of ischemic heart disease and other diseases of the circulatory system; Z86.16 Personal history of COVID-19; Z79.02 Long term (current) use of antithrombotics/antiplatelets; Z79.82 Long term (current) use of aspirin; Z79.4 Long term (current) use of insulin; Z79.51 Long term (current) use of inhaled steroids; Z79.899 Other long term (current) drug therapy; Z88.1 Allergy status to other antibiotic agents; Z88.5 Allergy status to narcotic agent; Z88.0 Allergy status to penicillin; Z88.2 Allergy status to sulfonamides; Z88.8 Allergy status to other drugs, medicaments and biological substances
CPT/HCPCS: 93312; 93320; 93325; 81025; 87635; J2250; J0360; J3010

== ENCOUNTER 2021-06-18 23:15 | Inpatient (IN) | payer BC, MEDICARE ==
[2021-06-18 23:33] LABS: Glucose,Whole Blood 142 mg/dL (75-99)
[2021-06-18] MEDS ORDERED: LABETALOL 5 MG/ML VIAL MDV IVP STA (23:49)
--- NOTE | 2021-06-18 23:56 | ED ---
Neuro HPI - General Chief Complaint: Neuro Symptoms/Deficit Stated Complaint: Fatigue, Headache Time Seen by Provider: 06/18/21 23:31 Source: patient Mode of arrival: wheelchair Limitations: no limitations - History of Present Illness Is the patient presenting with stroke symptoms?: Yes Last Known Well Date: 06/18/21 Last Known Well Time: 23:00 Onset/Timin -: minutes(s) Initial Comments: This patient is a 56-year-old woman who presents with the acute onset of left- sided arm and leg weakness and some slurring of the speech. Symptoms started approximately 40 minutes ago now. She states that the first thing that came on was some right sided temporal headache. She describes it as sharp, severe, without worsening or relieving factors. She states that she does get migraine headaches, but that this headache is of a different character and severity. Location: speech, left arm, left leg History of same: No Place: home Severity: moderate Quality: weak Improves With: none Worsens With: none On Anticoagulants: No Context: sudden onset Associated Symptoms: headaches Treatments Prior to Arrival: none - Related Data Home Medications: Home Medications Medication Instructions Recorded Confirmed Citalopram Hydrobromide [CeleXA] 40 mg PO HS 02/25/17 11/20/20 Gabapentin 600 mg PO BID 02/25/17 11/20/20 Cetirizine HCl [Zyrtec] 10 mg PO DAILY 11/14/17 11/20/20 ALPRAZolam [Xanax] 0.5 mg PO HS 10/16/18 11/20/20 Carvedilol [Coreg] 25 mg PO BID 10/16/18 11/20/20 traZODone HCL [Desyrel] 100 mg PO HS 10/16/18 11/20/20 Chlorthalidone [Hygroton] 25 mg PO DAILY 02/06/19 11/20/20 Fluticasone/Umeclidin/Vilanter 1 puff INHALATION RT-DAILY 02/06/19 11/20/20 [Trelegy Ellipta 100-62.5-25] Montelukast Sodium [Singulair] 10 mg PO DAILY 02/06/19 11/20/20 Allopurinol [Zyloprim] 300 mg PO HS 08/22/20 11/20/20 Famotidine 20 mg PO DAILY 08/22/20 11/20/20 Insulin Lispro [humaLOG Kwikpen] 15 unit SQ DAILY 08/22/20 11/20/20 Isosorbide Mononitrate [Ismo] 10 mg PO DAILY 08/22/20 11/20/20 Losartan Potassium 100 mg PO DAILY 08/22/20 11/20/20 Semaglutide [Ozempic] 0.25 mg SQ GARCIA 08/22/20 11/20/20 traMADol HCL [Ultram] 50 mg PO DAILY PRN 08/22/20 11/20/20 Acetaminophen Tab [Tylenol] 650 mg PO Q6H PRN 09/30/20 11/20/20 Albuterol Sulfate [Albuterol 2 puff INHALATION RT-Q4H PRN 09/30/20 11/20/20 Sulfate Hfa] hydrALAZINE HCL [Apresoline] 25 mg PO DAILY 09/30/20 11/20/20 Vitamin D3 50,000iu 1,250 mcg PO Q30D 10/11/20 11/20/20 Previous Rx's Medication Instructions Recorded Aspirin 81 mg PO DAILY #100 chew 10/14/20 Insulin Detemir [Levemir Flextouch 50 units SQ HS #30 pen 10/14/20 Pen] Allergies/Adverse Reactions: Allergies Allergy/AdvReac Type Severity Reaction Status Date / Time hydrocodone [From [place]] Allergy Hallucinati Verified 06/18/21 23:16 ons/vomitin g Penicillins Allergy Anaphylaxis Verified 06/18/21 23:16 Sulfa (Sulfonamide Allergy Anaphylaxis Verified 06/18/21 23:16 Antibiotics) adhesive tape AdvReac Itching/swe Verified 06/18/21 23:16 lling cephalexin [From Keflex] AdvReac Unknown Verified 06/18/21 23:16 Childhood measles, mumps, and rubella AdvReac Rash/Hives Verified 06/18/21 23:16 vaccine shellfish derived [Shrimp] AdvReac Rash/Hives Verified 06/18/21 23:16 Mwxelhv-ALS-SqP Reductase AdvReac Unknown Verified 06/18/21 23:16 Inhibitor [Oetafss-Old-Wts Reductase Inhibitor] Review of Systems ROS Statement: Those systems with pertinent positive or pertinent negative responses have been documented in the HPI. ROS Other: All systems not noted in ROS Statement are negative. Constitutional: Denies: fever, chills Respiratory: Denies: cough, dyspnea Cardiovascular: Denies: chest pain, palpitations, edema Gastrointestinal: Denies: abdominal pain, nausea, vomiting, diarrhea Genitourinary: Denies: dysuria, hematuria Musculoskeletal: Denies: back pain Skin: Denies: rash Neurological: Reports: headache, weakness, abnormal gait. Denies: numbness, paresthesias, confusion General Exam Limitations: no limitations General appearance: alert, in no apparent distress Head exam: Present: atraumatic, normocephalic Eye exam: Present: normal appearance. Absent: scleral icterus, conjunctival injection ENT exam: Present: normal oropharynx Respiratory exam: Present: normal lung sounds bilaterally. Absent: respiratory distress, wheezes, rales, rhonchi, stridor Cardiovascular Exam: Present: regular rate, normal rhythm, normal heart sounds. Absent: systolic murmur, diastolic murmur, rubs, gallop GI/Abdominal exam: Present: soft. Absent: distended, tenderness, guarding, rebound, rigid, mass Extremities exam: Present: normal inspection, normal capillary refill. Absent: pedal edema, calf tenderness Back exam: Present: normal inspection Neurological exam: Present: alert, oriented X3, CN II-XII intact, motor sensory deficit Skin exam: Present: warm, dry, intact, normal color. Absent: rash Stroke MDM - Lab Data Result diagrams: 06/18/21 23:42 06/19/21 00:20 Lab Results 06/18/21 06/18/21 06/19/21 Range/Units 23:26 23:42 00:20 WBC 6.3 (3.8-10.6) k/uL RBC 4.39 (3.80-5.40) m/uL Hgb 13.6 (11.4-16.0) gm/dL Hct 40.3 (34.0-46.0) % MCV 91.8 (80.0-100.0) fL MCH 30.9 (25.0-35.0) pg MCHC 33.7 (31.0-37.0) g/dL RDW 13.4 (11.5-15.5) % Plt Count 246 (150-450) k/uL MPV 7.1 Neutrophils % 62 % Lymphocytes % 23 % Monocytes % 6 % Eosinophils % 6 % Basophils % 1 % Neutrophils # 3.9 (1.3-7.7) k/uL Lymphocytes # 1.5 (1.0-4.8) k/uL Monocytes # 0.4 (0-1.0) k/uL Eosinophils # 0.4 (0-0.7) k/uL Basophils # 0.0 (0-0.2) k/uL PT 10.1 (9.0-12.0) sec INR 0.9 (<1.2) APTT 20.6 L (22.0-30.0) sec Sodium (137-145) mmol/L Potassium (3.5-5.1) mmol/L Chloride (98-107) mmol/L Carbon Dioxide (22-30) mmol/L Anion Gap mmol/L BUN (7-17) mg/dL Creatinine (0.52-1.04) mg/dL Est GFR (CKD-EPI)AfAm (>60 ml/min/1.73 sqM) Est GFR (CKD-EPI)NonAf (>60 ml/min/1.73 sqM) Glucose (74-99) mg/dL POC Glucose (mg/dL) 142 H (75-99) mg/dL POC Glu Centrifugal Chiller Technician ID Lauren Matson Calcium (8.4-10.2) mg/dL Total Bilirubin (0.2-1.3) mg/dL AST (14-36) U/L ALT (4-34) U/L Alkaline Phosphatase (38-126) U/L Troponin I (0.000-0.034) ng/mL Total Protein (6.3-8.2) g/dL Albumin (3.5-5.0) g/dL Coronavirus (PCR) (Not Detectd) 06/19/21 06/19/21 06/19/21 Range/Units 00:20 00:20 01:26 WBC (3.8-10.6) k/uL RBC (3.80-5.40) m/uL Hgb (11.4-16.0) gm/dL Hct (34.0-46.0) % MCV (80.0-100.0) fL MCH (25.0-35.0) pg MCHC (31.0-37.0) g/dL RDW (11.5-15.5) % Plt Count (150-450) k/uL MPV Neutrophils % % Lymphocytes % % Monocytes % % Eosinophils % % Basophils % % Neutrophils # (1.3-7.7) k/uL Lymphocytes # (1.0-4.8) k/uL Monocytes # (0-1.0) k/uL Eosinophils # (0-0.7) k/uL Basophils # (0-0.2) k/uL PT (9.0-12.0) sec INR (<1.2) APTT (22.0-30.0) sec Sodium 139 (137-145) mmol/L Potassium 4.2 (3.5-5.1) mmol/L Chloride 102 (98-107) mmol/L Carbon Dioxide 24 (22-30) mmol/L Anion Gap 13 mmol/L BUN 39 H (7-17) mg/dL Creatinine 2.06 H (0.52-1.04) mg/dL Est GFR (CKD-EPI)AfAm 31 (>60 ml/min/1.73 sqM) Est GFR (CKD-EPI)NonAf 27 (>60 ml/min/1.73 sqM) Glucose 155 H (74-99) mg/dL POC Glucose (mg/dL) (75-99) mg/dL POC Glu Centrifugal Chiller Technician ID Calcium 10.6 H (8.4-10.2) mg/dL Total Bilirubin 0.5 (0.2-1.3) mg/dL AST 21 (14-36) U/L ALT 16 (4-34) U/L Alkaline Phosphatase 74 (38-126) U/L Troponin I 0.018 (0.000-0.034) ng/mL Total Protein 7.8 (6.3-8.2) g/dL Albumin 4.5 (3.5-5.0) g/dL Coronavirus (PCR) Not Detected (Not Detectd) - Medical Decision Making Patient's 56-year-old woman presenting with acute onset of left sided weakness and dysarthria. The patient is made a code stroke activation. Case is discussed with Dr. Davis who recommends TPA administration if stroke is ischemic. I reviewed the CT and it does appear to be a hemorrhagic stroke. The radiologist called shortly thereafter and confirmed what appears to be hem orrhagic stroke within the right sunil. Case is then rediscussed with stroke team. Case discussed with patient and family and requests transfer to [facility]. - EKG Data -: EKG Interpreted by Me EKG shows normal: sinus rhythm, axis (Normal), intervals, ST-T waves (Normal) Rate: normal (Rate 78 bpm) Interpretation: other (Possible old anterior infarct.) Past Medical History Past Medical History: Coronary Artery Disease (CAD), Heart Failure, CVA/TIA, Diabetes Mellitus, Eye Disorder, GERD/Reflux, Hyperlipidemia, Hypertension, Pneumonia, Renal Disease Additional Past Medical History / Comment(s): Pt tested covid+ 09/30/20 at [facility] ER. 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 Past Anesthesia/Blood Transfusion Reactions: Motion Sickness, Postoperative Nausea & Vomiting (PONV) Additional Past Anesthesia/Blood Transfusion Reaction / Comment(s): asthma mariam ck during EGD. mom PONV Past Psychological History: Anxiety Smoking Status: Never smoker Past Alcohol Use History: None Reported Past Drug Use History: None Reported - Past Family History Father Family Medical History: Cancer, Diabetes Mellitus Additional Family Medical History / Comment(s): cancerous polyp, prostate cancer Mother Family Medical History: Hypertension Additional Family Medical History / Comment(s): Mother had irregular heartbeat Course Vital Signs 06/18/21 06/18/21 06/18/21 23:17 23:28 23:45 Temperature 98.2 F 98.2 F Pulse Rate 82 86 73 Respiratory 20 22 20 Rate Blood Pressure 185/100 198/116 146/100 O2 Sat by Pulse 97 95 95 Oximetry 06/19/21 06/19/21 06/19/21 00:15 00:30 00:45 Temperature 98.2 F 98.2 F 98.2 F Pulse Rate 79 82 73 Respiratory 20 18 20 Rate Blood Pressure 168/139 167/142 167/92 O2 Sat by Pulse 96 93 L 96 Oximetry 06/19/21 06/19/21 06/19/21 01:00 01:30 01:56 Temperature 98.2 F 98.2 F Pulse Rate 77 79 85 Respiratory 24 20 20 Rate Blood Pressure 192/139 101/42 128/68 O2 Sat by Pulse 95 97 97 Oximetry 06/19/21 06/19/21 06/19/21 02:30 03:00 03:30 Temperature 98.2 F 98.2 F 98.2 F Pulse Rate 78 76 78 Respiratory 20 18 18 Rate Blood Pressure 139/80 113/55 125/97 O2 Sat by Pulse 95 95 97 Oximetry 06/19/21 06/19/21 06/19/21 04:00 04:30 05:00 Temperature 98.2 F 98.2 F 98.2 F Pulse Rate 75 81 76 Respiratory 18 18 18 Rate Blood Pressure 122/81 118/84 124/58 O2 Sat by Pulse 97 96 95 Oximetry - Reevaluation(s) Reevaluation #1: 06/19/21 00:44 Case is discussed with Dr. Davis after the CT and his treatment recommendations are incorporated. Reevaluation #2: 06/19/21 06:21 Per family request I did see if transfer could be arranged to a number of different facilities, including [facility], [facility], [facility], [facility], all of these facilities do not have bed availability. Disposition
[2021-06-19] MEDS ORDERED: ONDANSETRON 4 MG/2 ML VIAL IVP STA (00:01)
[2021-06-19 00:02] LABS: Basophils % (A) 1 %; Eosinophils # (A) 0.4 k/uL (0-0.7); Eosinophils % (A) 6 %; HCT 40.3 % (34.0-46.0); HGB 13.6 gm/dL (11.4-16.0); Lymphocytes # (A) 1.5 k/uL (1.0-4.8); Lymphocytes % (A) 23 %; MCH 30.9 pg (25.0-35.0); MCHC 33.7 g/dL (31.0-37.0); MCV 91.8 fL (80.0-100.0); Mean Platelet Volume 7.1; Monocytes # (A) 0.4 k/uL (0-1.0); Monocytes % (A) 6 %; Neutrophils # (A) 3.9 k/uL (1.3-7.7); Neutrophils % (A) 62 %; Platelet Count 246 k/uL (150-450); RBC 4.39 m/uL (3.80-5.40); RDW 13.4 % (11.5-15.5); WBC 6.3 k/uL (3.8-10.6)
--- NOTE | 2021-06-19 00:22 | CT ---
EXAMINATION TYPE: CT brain wo con for TPA DATE OF EXAM: 06/19/2021 COMPARISON: 10/11/2020 HISTORY: stroke CT DLP: 862.1 mGycmBMB` Automated exposure control for dose reduction was used. There is some cerebral mild atrophy. There is no mass effect nor midline shift. There is a 16 x 10 mm area of high attenuation in the posterior fossa on the right side. This is well-defined collection. It is not clear if this is hemorrhage within the anterior sunil or is hemorrhage in the cistern. No ot her hemorrhage identified in the posterior fossa. This is more likely hemorrhage within the sunil. The re is a 6 mm hypodensity in the anterior sunil on the left side consistent with an old lacunar infarct . Unchanged. The calvarium is intact. Skull base is intact. There is normal aeration of the mastoid sinuses. IMPRESSION: High attenuation focus in the posterior fossa consistent with acute pontine right side hemorrhage hem orrhagic infarct that is a change compared to old exam. There is evidence for small old lacunar infar ct left side of the sunil. This exam was discussed with Dr. Todd at 12:30 AM.
--- NOTE | 2021-06-19 00:29 | XR ---
EXAMINATION TYPE: XR chest 1V DATE OF EXAM: 06/19/2021 COMPARISON: 10/11/2020 HISTORY: Altered mental status TECHNIQUE: Single view FINDINGS: Heart and mediastinum are normal. Lungs are clear. Diaphragm is normal. Bony thorax is inta ct. IMPRESSION: Normal chest. No change.
[2021-06-19] MEDS ORDERED: LABETALOL 5 MG/ML VIAL MDV IVP STA (00:33)
--- NOTE | 2021-06-19 00:50 | CT ---
EXAMINATION TYPE: CT angio head neck DATE OF EXAM: 06/19/2021 COMPARISON: HISTORY: stroke CT DLP: 862.1 mGycm Automated exposure control for dose reduction was used. CONTRAST: Performed with IV Contrast, patient injected with 80 mL of Isovue 370. There are 3-D post processed images. Images obtained from the aortic arch to the vertex of the brain. There is normal branching pattern of the great vessels on the aortic arch. There is arterial flow in both subclavian arteries. Exam limited by artifact at the thoracic inlet. There is arterial flow in t he common internal and external carotid arteries bilaterally. There is 25% narrowing of the origin of the left internal carotid artery. There is arterial flow in the vertebral arteries bilaterally. Ther e is arterial flow in the vertebrobasilar artery system. There is no evidence of carotid or vertebral artery aneurysm or dissection. No evidence of hemodynamic stenosis. There is arterial flow in the anterior middle and posterior cerebral arteries bilaterally. There is n o mass effect. There is normal enhancement of the venous sinuses. There is no evidence of intracrania l aneurysm or neovascularity. There is high attenuation along the anterior aspect of the right side o f the sunil with some bulging of the contour of the sunil and consistent with acute parenchymal hemorrh age. There is no evidence of intracranial hemodynamic stenosis. IMPRESSION: Negative CT angiogram of the head and neck. No evidence of hemodynamic stenosis. Minimal narrowing at the origin left internal carotid artery. High attenuation consistent with acute pontine hemorrhage on the right side.
[2021-06-19] MEDS ORDERED: HYDROmorphone 1 MG/ML 1 ML SYRINGE IVP STA (00:51)
[2021-06-19 00:58] LABS: Albumin 4.5 g/dL (3.5-5.0); Calcium 10.6 mg/dL (8.4-10.2); Potassium 4.2 mmol/L (3.5-5.1); Total Bilirubin 0.5 mg/dL (0.2-1.3); Total Protein 7.8 g/dL (6.3-8.2)
[2021-06-19] MEDS: niCARdipine 20 MG in SODIUM CHLORIDE 0.9% 192 ML IV SCH ×4 (01:00→14:43)
[2021-06-19 01:59] LABS: INR 0.9 (<1.2); Prothrombin Time 10.1 sec (9.0-12.0)
[2021-06-19 02:02] LABS: Partial Thromboplastin Time 20.6 sec (22.0-30.0)
[2021-06-19] MEDS ORDERED: LORazepam 2 MG/ML INJ IV STA ×2 (02:30→06:10)
[2021-06-19] MEDS ORDERED: SODIUM CHLORIDE 0.9% 1,000 ML IV SCH (03:45)
[2021-06-19] MEDS ORDERED: traMADol 50 MG TAB PO PRN (07:36)
[2021-06-19] MEDS ORDERED: ALBUTEROL NEBULIZED 2.5 MG/3 ML INHALATION PRN (07:36)
[2021-06-19] MEDS ORDERED: ACETAMINOPHEN TAB 325 MG TAB PO PRN (07:36)
[2021-06-19] MEDS ORDERED: SYMBICORT 80-4.5 MCG INHALER INHALATION SCH (08:00)
[2021-06-19] MEDS ORDERED: DOCUSATE 100 MG CAP PO SCH (08:00)
[2021-06-19] MEDS ORDERED: GABAPENTIN 300 MG CAP PO SCH (09:00)
[2021-06-19] MEDS ORDERED: FAMOTIDINE 20 MG/2 ML VIAL IV SCH (09:00)
[2021-06-19] MEDS ORDERED: FAMOTIDINE 20 MG TAB PO SCH (09:00)
[2021-06-19] MEDS ORDERED: ISOSORBIDE MONONITRATE 10 MG TAB PO SCH (09:00)
[2021-06-19] MEDS ORDERED: LOSARTAN 50 MG TAB PO SCH (09:00)
[2021-06-19] MEDS ORDERED: carvediloL 12.5 MG TAB PO SCH (09:00)
[2021-06-19] MEDS ORDERED: INSULIN ASPART (NovoLOG) 100 UNIT/ML VIAL SQ SCH ×2 (09:00→12:30)
[2021-06-19] MEDS ORDERED: hydrALAZINE HCL 25 MG TAB PO SCH (09:00)
[2021-06-19] MEDS ORDERED: MONTELUKAST 10 MG TAB PO SCH (09:00)
[2021-06-19] MEDS: IPRATROPIUM 0.5 MG/2.5 ML NEBU INHALATION SCH ×2 (09:10→13:05)
[2021-06-19 09:49] LABS: Glucose,Whole Blood 149 mg/dL (75-99)
[2021-06-19 10:25] VITALS: TEMP 98.9
--- NOTE | 2021-06-19 11:41 | CT ---
EXAMINATION TYPE: CT brain wo con DATE OF EXAM: 06/19/2021 COMPARISON: CT brain 06/18/2021 HISTORY: Acute Hemorrhagic Rt [place] Stroke Follow up CT DLP: 1131.4 mGycm Automated exposure control for dose reduction was used. Helical imaging obtained through the brain FINDINGS: The high attenuation seen at the level of the sunil on the right shows a similar appearance, there is a suggestion of some local mass effect, the area measures approximately 2.1 cm in AP dimension by 14 mm in transverse dimension by 15 mm in cephalad to caudal dimension, similar to prior exam, slight di fferences in measurement may be due to slight differences in technique CT, prior AP dimension approxi mately 19 mm. No other significant interval change. IMPRESSION: AREA OF PREVIOUSLY DESCRIBED HEMORRHAGE DESCRIBED SHOWS A SIMILAR APPEARANCE.
--- NOTE | 2021-06-19 13:52 | P.CNPUL ---
History of Present Illness Consult date: 06/19/21 Requesting physician: Robbie Nieves Reason for consult: other (Acute pontine hemorrhagic stroke) Chief complaint: Left sided arm and leg weakness and slurred speech. History of present illness: This is a 56-year-old female with history of multiple medical problems, patient presented to the ER with acute onset of left-sided arm and left leg weakness as well as slurred speech. Symptoms started apparently 40 minutes prior to presentation to the ER. Patient was also complaining of right sided temporal headache. Described the headache as sharp, severe, no worsening or relieving factors documented in the chart. Patient does have history of migraine cephalgia, however according to her this headache was a bit more severe. CT of the brain on this patient showed high attenuation focus in the posterior fossa consistent with acute pontine right-sided hemorrhage/hemorrhagic infarct that is a change compared to previous examination from October of 2020. Acute get the notes from October 13 2020, patient was in the hospital, and she had symptoms of slurred speech. The neurologist felt that the patient had probable stroke/TIA manifesting with dysarthria and right-sided weakness MRI of the brain at the time showed small vessel disease in the upper sunil region. And the recommendation was to do well antiplatelet medication for 21 days. Apparently the patient had extensive neurological workup at the time. I saw this patient in the ER, and I reviewed the results of her brain CT, and I felt considering that this is a hemorrhagic stroke, patient should be better off in a tertiary [facility] and I strongly recommended that the patient gets transferred to a tertiary care center in the meantime she is receiving treatment to control her blood pressure. The is going to discuss with her primary care physician and hopefully get the patient transferred. Apparently the ER physician tried to transfer the patient earlier to tertiary care centers and no one would accept the transfer. The patient could not be transferred then the last resort would be to make sure that we have a neurologist available in our institution to accept the patient in our facility. Apparently the neurologist involved earlier with this patient with managing the patient on virtual/telemedicine. Review of Systems Constitutional: Denies: fever, chills Respiratory: Denies: cough, dyspnea Cardiovascular: Denies: chest pain, palpitations, edema Gastrointestinal: Denies: abdominal pain, nausea, vomiting, diarrhea Genitourinary: Denies: dysuria, hematuria Musculoskeletal: Denies: back pain Skin: Denies: rash Neurological: As noted in HPI Past Medical History Past Medical History: Coronary Artery Disease (CAD), Heart Failure, CVA/TIA, Di abetes Mellitus, Eye Disorder, GERD/Reflux, Hyperlipidemia, Hypertension, Pneumonia, Renal Disease Additional Past Medical History / Comment(s): Pt tested covid+ 09/30/20 at [facility] ER. 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 Past Anesthesia/Blood Transfusion Reactions: Motion Sickness, Postoperative Nausea & Vomiting (PONV) Additional Past Anesthesia/Blood Transfusion Reaction / Comment(s): asthma attack during EGD. mom PONV Past Psychological History: Anxiety Smoking Status: Never smoker Past Alcohol Use History: None Reported Past Drug Use History: None Reported - Past Family History Father Family Medical History: Cancer, Diabetes Mellitus Additional Family Medical History / Comment(s): cancerous polyp, prostate cancer Mother Family Medical History: Hypertension Additional Family Medical History / Comment(s): Mother had irregular heartbeat Medications and Allergies Home Medications Medication Instructions Recorded Confirmed Type Citalopram Hydrobromide [CeleXA] 40 mg PO HS 02/25/17 06/19/21 History Gabapentin 600 mg PO BID 02/25/17 06/19/21 History Cetirizine HCl [Zyrtec] 10 mg PO DAILY 11/14/17 06/19/21 History ALPRAZolam [Xanax] 0.5 mg PO TID PRN 10/16/18 06/19/21 History Carvedilol [Coreg] 25 mg PO BID 10/16/18 06/19/21 History Allopurinol [Zyloprim] 300 mg PO HS 08/22/20 06/19/21 History Famotidine 20 mg PO DAILY 08/22/20 06/19/21 History traMADol HCL [Ultram] 50 mg PO Q6H PRN 08/22/20 06/19/21 History Albuterol Sulfate [Albuterol 2 puff INHALATION RT-Q4H PRN 09/30/20 06/19/21 History Sulfate Hfa] Vitamin D3 50,000iu 1,250 mcg PO Q30D 10/11/20 06/19/21 History Aspirin 81 mg PO DAILY #100 chew 10/14/20 06/19/21 Rx Clopidogrel [Plavix] 75 mg PO DAILY 06/19/21 06/19/21 History Doxycycline Hyclate 100 mg PO DAILY 06/19/21 06/19/21 History Semaglutide [Ozempic] 0.5 mg SQ Q7D 06/19/21 06/19/21 History Allergies Allergy/AdvReac Type Severity Reaction Status Date / Time hydrocodone [From [place]] Allergy Hallucinati Verified 06/19/21 08:30 ons/vomitin g Penicillins Allergy Anaphylaxis Verified 06/19/21 08:30 Sulfa (Sulfonamide Allergy Anaphylaxis Verified 06/19/21 08:30 Antibiotics) adhesive tape AdvReac Itching/swe Verified 06/19/21 08:30 lling cephalexin [From Keflex] AdvReac Unknown Verified 06/19/21 08:30 Childhood measles, mumps, and rubella AdvReac Rash/Hives Verified 06/19/21 08:30 vaccine shellfish derived [Shrimp] AdvReac Rash/Hives Verified 06/19/21 08:30 Wxucikr-ACL-ZvH Reductase AdvReac Unknown Verified 06/19/21 08:30 Inhibitor [Jewkylm-Qnb-Yej Reductase Inhibitor] Physical Exam Vitals: Vital Signs Temp Pulse Resp BP Pulse Ox 06/19/21 13:10 88 06/19/21 12:04 76 18 134/58 97 06/19/21 10:24 98.9 F 74 18 131/67 97 06/19/21 09:30 86 18 163/85 95 06/19/21 09:18 86 06/19/21 09:12 90 06/19/21 08:39 74 18 120/54 97 06/19/21 08:00 75 18 104/55 95 06/19/21 07:30 76 18 115/54 94 L 06/19/21 05:00 98.2 F 76 18 124/58 95 06/19/21 04:30 98.2 F 81 18 118/84 96 06/19/21 04:00 98.2 F 75 18 122/81 97 06/19/21 03:30 98.2 F 78 18 125/97 97 06/19/21 03:00 98.2 F 76 18 113/55 95 06/19/21 02:30 98.2 F 78 20 139/80 95 06/19/21 01:56 98.2 F 85 20 128/68 97 06/19/21 01:30 79 20 101/42 97 06/19/21 01:00 98.2 F 77 24 192/139 95 06/19/21 00:45 98.2 F 73 20 167/92 96 06/19/21 00:30 98.2 F 82 18 167/142 93 L 06/19/21 00:15 98.2 F 79 20 168/139 96 06/18/21 23:45 73 20 146/100 95 06/18/21 23:28 98.2 F 86 22 198/116 95 06/18/21 23:17 98.2 F 82 20 185/100 97 Intake and Output 06/18/21 06/19/21 06/19/21 22:59 06:59 14:59 Intake Total 56.25 143.75 Output Total 350 Balance -293.75 143.75 Intake: Intake, IV Titration 56.25 143.75 Amount niCARdipine 20 mg In 56.25 143.75 Sodium Chloride 0.9% 192 ml @ 5 MG/HR 50 mls/hr IV .Q4H [facility] Rx#:[id number] Output: Urine 350 Uretheral (Huggins) 350 Other: Weight 115.666 kg General appearance: Revealed a 56-year-old female, lethargic, opens eyes, and follows simple instructions. Head exam: atraumatic, normocephalic Eye exam: Pinpoint pupils otherwise unremarkable. ENT exam: Moist mucous membranes. Respiratory exam: Symmetrical chest expansion, diminished breath sounds at the bases no rhonchi and no wheezes. Cardiovascular Exam: Distant S1 and S2, no S3 gallop. GI/Abdominal exam: Obese soft nontender no megaly no rebound or guarding. Extremities exam: No clubbing edema or cyanosis. Neurological exam: Lethargic with pinpoint pupils. Skin exam: No clubbing edema or cyanosis. Results - Laboratory Findings CBC and BMP: 06/18/21 23:42 06/19/21 00:20 PT/INR, D-dimer PT 10.1 sec (9.0-12.0) 06/19/21 00:20 INR 0.9 (<1.2) 06/19/21 00:20 Abnormal lab findings: Abnormal Labs 06/18/21 06/19/21 06/19/21 23:26 00:20 00:20 APTT 20.6 L BUN 39 H Creatinine 2.06 H Glucose 155 H POC Glucose (mg/dL) 142 H Calcium 10.6 H 06/19/21 09:38 APTT BUN Creatinine Glucose POC Glucose (mg/dL) 149 H Calcium - Diagnostic Findings Chest x-ray: image reviewed (Normal chest x-ray.) Additional studies: CT of the brain showed high attenuation focus in the posterior fossa consistent with acute pontine right sided hemorrhage/hemorrhagic infarct his is a change compared to old examination. There was evidence of small old lacunar infarct left side of the sunil. Assessment and Plan Assessment: Impression: Acute pontine hemorrhage/CVA History of COVID-19 pneumonia back in September. 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 Strongly recommended transferring the patient to a tertiary care center where neurosurgery is available. Would recommend neurological evaluation if the patient is to be admitted to our facility and should be assessed physically by neurology. Continue to monitor blood pressure and treat accordingly keep blood pressure and abnormal range. We will continue to follow. If admitted to our facility. Explained to the that the patient is better off in a tertiary care facility. Time with Patient: Greater than 30
[2021-06-19] MEDS ORDERED: HYDROmorphone 0.5 MG/0.5 ML SYRINGE IVP PRN (14:31)
[2021-06-19] MEDS ORDERED: LORazepam 2 MG/ML INJ IV PRN (14:32)
--- NOTE | 2021-06-19 14:40 | P.CNNES ---
History of Present Illness Consult date: 06/19/21 Reason for Consult: right pontine hemorrhage History of Present Illness: The patient is a 56-year-old female who is seen in neurologic consultation on June 19, 2021, in the emergency department at [facility]. The patient's daughter and are present at the bedside at the time of the evaluation. According to the patient's daughter she and her mother were watching television last p.m. Patient reportedly had sudden onset of right- sided jaw pain and slurred speech. The symptoms continued for approximately 40 minutes and the brought the patient to the emergency department. In the ER a stat head CT was performed and revealed evidence of a right pontine hemorrhage. The patient does have a history of hypertension and reportedly did not take her medication on the day of presentation to the emergency department. A repeat CT scan of the brain revealed no change in the size of the hemorrhage. The patient is accepted for transfer to [facility] however they are waiting for a bed to open up. The patient reports having headache. She denies new visual changes. She reports weakness in her left arm and leg. Her speech is slurred. Past Medical History Past Medical History: Coronary Artery Disease (CAD), Heart Failure, CVA/TIA, Diabetes Mellitus, Eye Disorder, GERD/Reflux, Hyperlipidemia, Hypertension, Pneumonia, Renal Disease Additional Past Medical History / Comment(s): Pt tested covid+ 09/30/20 at [facility] ER. 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 Past Anesthesia/Blood Transfusion Reactions: Motion Sickness, Postoperative Nausea & Vomiting (PONV) Additional Past Anesthesia/Blood Transfusion Reaction / Comment(s): asthma attack during EGD. mom PONV Past Psychological History: Anxiety Smoking Status: Never smoker Past Alcohol Use History: None Reported Past Drug Use History: None Reported - Past Family History Father Family Medical History: Cancer, Diabetes Mellitus Additional Family Medical History / Comment(s): cancerous polyp, prostate cancer Mother Family Medical History: Hypertension Additional Family Medical History / Comment(s): Mother had irregular heartbeat Medications and Allergies Home Medications Medication Instructions Recorded Confirmed Type Citalopram Hydrobromide [CeleXA] 40 mg PO HS 02/25/17 06/19/21 History Gabapentin 600 mg PO BID 02/25/17 06/19/21 History Cetirizine HCl [Zyrtec] 10 mg PO DAILY 11/14/17 06/19/21 History ALPRAZolam [Xanax] 0.5 mg PO TID PRN 10/16/18 06/19/21 History Carvedilol [Coreg] 25 mg PO BID 10/16/18 06/19/21 History Allopurinol [Zyloprim] 300 mg PO HS 08/22/20 06/19/21 History Famotidine 20 mg PO DAILY 08/22/20 06/19/21 History traMADol HCL [Ultram] 50 mg PO Q6H PRN 08/22/20 06/19/21 History Albuterol Sulfate [Albuterol 2 puff INHALATION RT-Q4H PRN 09/30/20 06/19/21 History Sulfate Hfa] Vitamin D3 50,000iu 1,250 mcg PO Q30D 10/11/20 06/19/21 History Aspirin 81 mg PO DAILY #100 chew 10/14/20 06/19/21 Rx Clopidogrel [Plavix] 75 mg PO DAILY 06/19/21 06/19/21 History Doxycycline Hyclate 100 mg PO DAILY 06/19/21 06/19/21 History Semaglutide [Ozempic] 0.5 mg SQ Q7D 06/19/21 06/19/21 History Allergies Allergy/AdvReac Type Severity Reaction Status Date / Time hydrocodone [From [place]] Allergy Hallucinati Verified 06/19/21 08:30 ons/vomitin g Penicillins Allergy Anaphylaxis Verified 06/19/21 08:30 Sulfa (Sulfonamide Allergy Anaphylaxis Verified 06/19/21 08:30 Antibiotics) adhesive tape AdvReac Itching/swe Verified 06/19/21 08:30 lling cephalexin [From Keflex] AdvReac Unknown Verified 06/19/21 08:30 Childhood measles, mumps, and rubella AdvReac Rash/Hives Verified 06/19/21 08:30 vaccine shellfish derived [Shrimp] AdvReac Rash/Hives Verified 06/19/21 08:30 Ytkqlvj-AON-BaU Reductase AdvReac Unknown Verified 06/19/21 08:30 Inhibitor [Zczryva-Ijc-Vly Reductase Inhibitor] Physical Examination - Vital Signs Vital Signs: Vital Signs Temp Pulse Resp BP Pulse Ox 06/19/21 13:40 91 18 134/74 99 06/19/21 13:10 88 06/19/21 12:04 76 18 134/58 97 06/19/21 10:24 98.9 F 74 18 131/67 97 06/19/21 09:30 86 18 163/85 95 06/19/21 09:18 86 06/19/21 09:12 90 06/19/21 08:39 74 18 120/54 97 06/19/21 08:00 75 18 104/55 95 06/19/21 07:30 76 18 115/54 94 L 06/19/21 05:00 98.2 F 76 18 124/58 95 06/19/21 04:30 98.2 F 81 18 118/84 96 06/19/21 04:00 98.2 F 75 18 122/81 97 06/19/21 03:30 98.2 F 78 18 125/97 97 06/19/21 03:00 98.2 F 76 18 113/55 95 06/19/21 02:30 98.2 F 78 20 139/80 95 06/19/21 01:56 98.2 F 85 20 128/68 97 06/19/21 01:30 79 20 101/42 97 06/19/21 01:00 98.2 F 77 24 192/139 95 06/19/21 00:45 98.2 F 73 20 167/92 96 06/19/21 00:30 98.2 F 82 18 167/142 93 L 06/19/21 00:15 98.2 F 79 20 168/139 96 06/18/21 23:45 73 20 146/100 95 06/18/21 23:28 98.2 F 86 22 198/116 95 06/18/21 23:17 98.2 F 82 20 185/100 97 Intake and Output 06/18/21 06/19/21 06/19/21 22:59 06:59 14:59 Intake Total 56.25 143.75 Output Total 350 Balance -293.75 143.75 Intake: Intake, IV Titration 56.25 143.75 Amount niCARdipine 20 mg In 56.25 143.75 Sodium Chloride 0.9% 192 ml @ 5 MG/HR 50 mls/hr IV .Q4H [facility] Rx#:[id number] Output: Urine 350 Uretheral (Huggins) 350 Other: Weight 115.666 kg Gen.: The patient is reclining on the gurney in the emergency department. She is somewhat restless. She appears older than her stated age. HEENT: Head is atraumatic, normocephalic. Fundus not visualized. There is no scleral icterus. Mucous membranes are moist. Neck: Supple without carotid bruits Heart: Regular rate and rhythm Extremities: Without edema Neurological examination Mental status: The patient is awake and alert. Her speech is dysarthric. She is oriented 3. She is able to follow instructions. Cranial nerves: Pupils are equal at 2 mm and reactive. Visual li are full to confrontation. Extraocular movements are intact. There is no nystagmus. Facial sensation is reportedly intact. There is a left facial droop. Hearing is grossly intact. Uvula and palate are midline. Shoulder shrug is diminished on the left. Tongue protrudes midline. Motor: Right upper and lower extremity strength is 5/5. Left upper extremity strength 0/5. Left lower extremity strength 0/5. Sensation: Reported grossly intact to light touch throughout. Coordination: Finger to nose testing is intact on the right. Deep tendon reflexes: 2+/4+ in the right upper and lower extremities. Left upper and lower extremity reflexes 3+/4+. Plantar response is extensor on the left and equivocal on the right. Gait: Not assessed Results - Laboratory Findings CBC and BMP: 06/18/21 23:42 06/19/21 00:20 Abnormal Lab Findings: Abnormal Labs 06/18/21 06/19/21 06/19/21 23:26 00:20 00:20 APTT 20.6 L BUN 39 H Creatinine 2.06 H Glucose 155 H POC Glucose (mg/dL) 142 H Calcium 10.6 H 06/19/21 09:38 APTT BUN Creatinine Glucose POC Glucose (mg/dL) 149 H Calcium - Diagnostic Findings Comments: CT scan of the brain reveals a right pontine hemorrhage. Images are personally reviewed. Assessment and Plan Assessment: 1. Right pontine hemorrhage 2. Hypertension 3. Diabetes mellitus Plan: 1. Agree with plan to transfer to tertiary care facility, where neurosurgery is available 2. Keep blood pressure less than 140 systolic 3. Pain control as this will reduce intracranial pressure 4. Keep head of bed elevated at least 30at all times, for reduction of intracranial pressure as well as to reduce the risk of aspiration Time with Patient: Greater than 30 (spent 40 minutes with patient via telemedicine.)
[2021-06-19 14:43] LABS: Glucose,Whole Blood 105 mg/dL (75-99)
[2021-06-19 16:40] VITALS: BP 124/85; PULSE 77; RESP 18
--- NOTE | 2021-06-19 18:14 | HP ---
HISTORY AND PHYSICAL CHIEF COMPLAINT: Ataxia and difficulty speaking. HISTORY OF PRESENT ILLNESS: This is another admission for this 56-year-old obese white insulin-dependent diabetic who was brought to the emergency room by her family after she was noticed to be unsteady and having trouble speaking. They thought initially this might be hypoglycemia, but after administering glucose, she did not change. She was brought to the emergency room where she was found to have a pontine bleed with left hemiparesis and some aphasia. REVIEW OF SYSTEMS: Cannot be obtained accurately or responsibly. She denies headache and she has had no vomiting. Past medical history, family history and personal and social histories reveal that she has a history of hypertension, stage IV CKD and type 2 insulin-dependent diabetes mellitus. She has had previous mild CVA from which she recovered very well. MEDICATIONS: Include montelukast, albuterol updrafts, Farxiga 10 mg once a day, metformin 500 mg twice a day, carvedilol 25 mg twice a day, Lasix 20 mg once a day, clopidogrel 75 mg once a day, aspirin 81 mg a day, Cozaar 100 mg once a day, allopurinol 300 mg once a day, isosorbide mononitrate 10 mg once a day, Ozempic 0.5 once a week, Pepcid 20 mg once a day, vitamin D3, chlorthalidone 25 mg once a day, gabapentin 600 mg twice a day. ALLERGIES: SHE CANNOT TAKE PRAVASTATIN, OMEPRAZOLE, AZITHROMYCIN, CEPHALOSPORINS, SULFA OR PENICILLIN. She has never been a smoker. PHYSICAL EXAMINATION: Blood pressure is 198/116 with a pulse of 92, respirations of 40 and she is afebrile. In GENERAL she appeared overweight and agitated. SKIN color is normal. Skin is warm, dry. HEENT: Head, ears, eyes, nose and mouth were normal. Gaze was conjugate. Pupils equal and round. NECK: Carotids could not be assessed. There is no neck vein distention. CHEST is clear. CARDIAC exam is normal. ABDOMEN was protuberant. EXTREMITIES are normal. IMPRESSION: 1. Hemorrhagic cerebrovascular accident with aphasia and left hemiparesis. 2. Hypertension. 3. Poorly controlled type 2 insulin-dependent diabetes mellitus. 4. History of previous cerebrovascular accident. 5. Obesity. PLAN: 1. Bedrest. 2. Frequent monitoring of her neurologic status and vital signs. 3. Neurology consult. MMODL / IJN: [id number] /
--- NOTE | 2021-06-19 18:30 | DS ---
DISCHARGE SUMMARY CHIEF COMPLAINT: CVA. HISTORY OF PRESENT ILLNESS AND PHYSICAL EXAMINATION: Details of details of this lady's history and physical can be found in the initial workup. LABORATORY STUDIES: While she was in the hospital, she had laboratory studies, details of which can be found in the laboratory section of her chart. COURSE IN THE HOSPITAL: After admission, she was placed on bedrest in the emergency room. After her evaluation, it was determined that she should be transferred to a tertiary hospital. Arrangements were being made for her to go to [facility]. FINAL DIAGNOSES: 1. Acute intracranial pontine bleed. 2. Aphasia and ataxia. 3. History of type 2 insulin dependent diabetes mellitus. 4. Hypertension. 5. Obesity. 6. Congestive heart failure. 7. Previous cerebrovascular accident. OPERATIONS: None. CONSULTATIONS: Intensive medicine and neurology. MMODL / IJN: [id number] /
[2021-06-19] MEDS ORDERED: traZODone HCL 100 MG TAB PO SCH (21:00)
[2021-06-19] MEDS ORDERED: CITALOPRAM HYDROBROMIDE 20 MG TAB PO SCH (21:00)
[2021-06-19] MEDS ORDERED: INSULIN DETEMIR (LEVEMIR) 100 UNIT/ML SYR SQ SCH (21:00)
== END 2021-06-19 16:30 | disposition short-term general hospital (02) | DRG 65 ==
LOC: EC 23:15 → 2SICU 06-19 03:45
PROVIDERS: ADMIT Family Medicine; ATTEND Family Medicine
DX: I61.3 Nontraumatic intracerebral hemorrhage in brain stem (principal); I13.0 Hypertensive heart and chronic kidney disease with heart failure and stage 1 through stage 4 chronic kidney disease, or unspecified chronic kidney disease; N18.4 Chronic kidney disease, stage 4 (severe); R47.01 Aphasia; Z68.42 Body mass index [BMI] 45.0-49.9, adult; G81.94 Hemiplegia, unspecified affecting left nondominant side; I25.10 Atherosclerotic heart disease of native coronary artery without angina pectoris; I50.9 Heart failure, unspecified; J45.998 Other asthma; E55.9 Vitamin D deficiency, unspecified; Z98.890 Other specified postprocedural states; Z88.2 Allergy status to sulfonamides; Z88.7 Allergy status to serum and vaccine; Z88.5 Allergy status to narcotic agent; Z88.0 Allergy status to penicillin; Z91.013 Allergy to seafood; Z79.4 Long term (current) use of insulin; E11.22 Type 2 diabetes mellitus with diabetic chronic kidney disease; E11.65 Type 2 diabetes mellitus with hyperglycemia; Z20.822 Contact with and (suspected) exposure to COVID-19; N18.9 Chronic kidney disease, unspecified; E11.42 Type 2 diabetes mellitus with diabetic polyneuropathy; E66.9 Obesity, unspecified; E11.319 Type 2 diabetes mellitus with unspecified diabetic retinopathy without macular edema; Z79.82 Long term (current) use of aspirin; E61.1 Iron deficiency; E78.5 Hyperlipidemia, unspecified; G43.909 Migraine, unspecified, not intractable, without status migrainosus; H54.62 Unqualified visual loss, left eye, normal vision right eye; Z79.02 Long term (current) use of antithrombotics/antiplatelets; Z79.899 Other long term (current) drug therapy; Z82.49 Family history of ischemic heart disease and other diseases of the circulatory system; Z83.3 Family history of diabetes mellitus; Z86.14 Personal history of Methicillin resistant Staphylococcus aureus infection; Z86.16 Personal history of COVID-19; Z86.73 Personal history of transient ischemic attack (TIA), and cerebral infarction without residual deficits; Z87.01 Personal history of pneumonia (recurrent); Z87.11 Personal history of peptic ulcer disease; Z80.42 Family history of malignant neoplasm of prostate; Z86.19 Personal history of other infectious and parasitic diseases
CPT/HCPCS: 36415; 70450; 70496; 70498; 71045; 80053; 84484; 85025; 85610; 85730; 87635; 93005; 96374; 96375; 96376; 99285

== ENCOUNTER 2021-11-15 17:05 | Emergency (ER) | payer BC, MEDICARE ==
[2021-11-15 17:22] VITALS: BP 165/88; PULSE 98; RESP 16; TEMP 98.3
[2021-11-15 18:00] LABS: Appearance,Urine Clear (Clear); Bacteria,Urine Rare /hpf; Bilirubin,Urine Negative (Negative); Blood,Urine Negative (Negative); Color,Urine Light Yellow; Glucose,Urine (UA) 4+ (Negative); Ketones,Urine Negative (Negative); Leukocyte Esterase,Urine Small (Negative); Mucus,Urine Rare /hpf; Nitrite,Urine Negative (Negative); PH, Urine 5.5 (5.0-8.0); Protein,Urine 1+ (Negative); RBC,Urine 2 /hpf (0-5); Specific Gravity,Urine 1.013 (1.001-1.035); Squamous Epithelial Cell,Urine 5 /hpf (0-4); Urobilinogen,Urine <2.0 mg/dL (<2.0); WBC,Urine 1 /hpf (0-5)
== END 2021-11-15 21:43 | disposition left against medical advice (07) ==
LOC: EC 17:05
DX: Z53.21 Procedure and treatment not carried out due to patient leaving prior to being seen by health care provider (principal)
CPT/HCPCS: 81001; 99499

== ENCOUNTER 2022-01-07 11:47 | Observation (INO) | payer BC, MEDICARE ==
[2022-01-07 13:19] LABS: Glucose,Whole Blood 82 mg/dL (70-110)
[2022-01-07] MEDS ORDERED: SODIUM CHLORIDE 0.9% 1,000 ML IV STA (14:24)
--- NOTE | 2022-01-07 14:54 | ED ---
General Adult HPI - General Chief complaint: Recheck/Abnormal Lab/Rx Stated complaint: hypoglycemia Time Seen by Provider: 01/07/22 14:04 Source: patient Mode of arrival: wheelchair Limitations: no limitations - History of Present Illness Initial comments: Patient is a 56-year-old female with a past medical history of stroke, CKD stage 3, and type 2 insulin-dependent diabetes who presents to the emergency department for evaluation of hypoglycemia. Patient states she has had several episodes of hypoglycemia for the past 3 days. Patient has been taking her blood sugar at home during these episodes during which her blood sugars in the 50s. During these episodes patient states that she feels very lightheaded and her heart races. Her states that during these episodes he gives her glucose tablets however after a few hours patient's blood sugar dropped back down to the 50s. Patient has not taken her insulin in 3 days. She normally takes Levemir and NovoLog. She denies any change in diet. States she did have a bad urinary tract infection a couple weeks ago that has since resolved. Denies fever, chills, shortness of breath, upper respiratory symptoms, chest pain, abdominal pain, and other concerns. Patient's sugar was 82 in triage. - Related Data Home Medications Medication Instructions Recorded Confirmed Citalopram Hydrobromide [CeleXA] 40 mg PO HS 02/25/17 06/19/21 Gabapentin 600 mg PO BID 02/25/17 06/19/21 Cetirizine HCl [Zyrtec] 10 mg PO DAILY 11/14/17 06/19/21 ALPRAZolam [Xanax] 0.5 mg PO TID PRN 10/16/18 06/19/21 carvediloL [Coreg] 25 mg PO BID 10/16/18 06/19/21 Famotidine 20 mg PO DAILY 08/22/20 06/19/21 allopurinoL [Zyloprim] 300 mg PO HS 08/22/20 06/19/21 traMADol HCL [Ultram] 50 mg PO Q6H PRN 08/22/20 06/19/21 Albuterol Sulfate [Albuterol 2 puff INHALATION RT-Q4H PRN 09/30/20 06/19/21 Sulfate Hfa] Vitamin D3 50,000iu 1,250 mcg PO Q30D 10/11/20 06/19/21 Clopidogrel [Plavix] 75 mg PO DAILY 06/19/21 06/19/21 Doxycycline Hyclate 100 mg PO DAILY 06/19/21 06/19/21 Semaglutide [Ozempic] 0.5 mg SQ Q7D 06/19/21 06/19/21 Previous Rx's Medication Instructions Recorded Aspirin 81 mg PO DAILY #100 chew 10/14/20 Allergies Allergy/AdvReac Type Severity Reaction Status Date / Time hydrocodone [From [place]] Allergy Hallucinati Verified 01/07/22 13:16 ons/vomitin g Penicillins Allergy Anaphylaxis Verified 01/07/22 13:16 Sulfa (Sulfonamide Allergy Anaphylaxis Verified 01/07/22 13:16 Antibiotics) adhesive tape AdvReac Itching/swe Verified 01/07/22 13:16 lling cephalexin [From Keflex] AdvReac Unknown Verified 01/07/22 13:16 Childhood measles, mumps, and rubella AdvReac Rash/Hives Verified 01/07/22 13:16 vaccine shellfish derived [Shrimp] AdvReac Rash/Hives Verified 01/07/22 13:16 Cubaxjn-IMO-IcO Reductase AdvReac Unknown Verified 01/07/22 13:16 Inhibitor [Fqbrqcw-Vcj-Vil Reductase Inhibitor] Review of Systems ROS Statement: Those systems with pertinent positive or pertinent negative responses have been documented in the HPI. ROS Other: All systems not noted in ROS Statement are negative. Past Medical History Past Medical History: Coronary Artery Disease (CAD), Heart Failure, CVA/TIA, Diabetes Mellitus, Eye Disorder, GERD/Reflux, Hyperlipidemia, Hypertension, Pneumonia, Renal Disease Additional Past Medical History / Comment(s): Pt tested covid+ 09/30/20 at [facility] ER. 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 Past Anesthesia/Blood Transfusion Reactions: Motion Sickness, Postoperative Nausea & Vomiting (PONV) Additional Past Anesthesia/Blood Transfusion Reaction / Comment(s): asthma attack during EGD. mom PONV Past Psychological History: Anxiety Smoking Status: Never smoker Past Alcohol Use History: None Reported Past Drug Use History: None Reported - Past Family History Father Family Medical History: Cancer, Diabetes Mellitus Additional Family Medical History / Comment(s): cancerous polyp, prostate cancer Mother Family Medical History: Hypertension Additional Family Medical History / Comment(s): Mother had irregular heartbeat General Exam Limitations: no limitations General appearance: alert, in no apparent distress Head exam: Present: atraumatic, normocephalic, normal inspection Eye exam: Present: normal appearance, PERRL, EOMI. Absent: scleral icterus, conjunctival injection, periorbital swelling Neck exam: Present: normal inspection. Absent: tenderness, meningismus, lymphadenopathy Respiratory exam: Present: normal lung sounds bilaterally. Absent: respiratory distress, wheezes, rales, rhonchi, stridor Cardiovascular Exam: Present: regular rate, normal rhythm, normal heart sounds. Absent: systolic murmur, diastolic murmur, rubs, gallop, clicks GI/Abdominal exam: Present: soft, normal bowel sounds. Absent: distended, tenderness, guarding, rebound, rigid Extremities exam: Present: normal inspection Neurological exam: Present: alert, oriented X3, CN II-XII intact Psychiatric exam: Present: normal affect, normal mood Skin exam: Present: warm, dry, intact, normal color. Absent: rash Course Vital Signs 01/07/22 13:12 Temperature 97.6 F Pulse Rate 74 Respiratory 18 Rate Blood Pressure 155/79 O2 Sat by Pulse 99 Oximetry Medical Decision Making - Medical Decision Making This is a 56-year-old female who presents for evaluation of hypoglycemia. Thorough history and examination were performed. Patient is well-appearing. States she currently feels well with no concern. Her blood sugar was 82 in triage and during my evaluation her checked her sugar again which was 100. Patient has not taken her insulin in 3 days. Laboratory studies obtained. Glucose is 84. Patient has normal white blood cell count at 9.7. Creatinine is elevated at 2.23 with GFR at 24, consistent with chronic kidney disease. COVID-19 is not detected. Urinalysis is not indicated of infection however there is glucose in the urine. Case discussed with Dr. Menard. At this time there are no diagnostic studies to explain patient's hypoglycemic episodes. Patient will be admitted to her service with endocrinology consult. Patient will have blood sugar checked every 6 hours. Results discussed with patient who is agreeable to admission. Dr. Miller is my attending. - Lab Data Result diagrams: 01/07/22 16:09 01/07/22 16:09 Lab Results 01/07/22 01/07/22 01/07/22 Range/Units 13:17 16:09 16:09 WBC 9.7 (3.8-10.6) k/uL RBC 3.95 (3.80-5.40) m/uL Hgb 11.7 (11.4-16.0) gm/dL Hct 35.4 (34.0-46.0) % MCV 89.8 (80.0-100.0) fL MCH 29.8 (25.0-35.0) pg MCHC 33.1 (31.0-37.0) g/dL RDW 13.8 (11.5-15.5) % Plt Count 192 (150-450) k/uL MPV 6.8 Neutrophils % 73 % Lymphocytes % 13 % Monocytes % 5 % Eosinophils % 8 % Basophils % 1 % Neutrophils # 7.1 (1.3-7.7) k/uL Lymphocytes # 1.2 (1.0-4.8) k/uL Monocytes # 0.5 (0-1.0) k/uL Eosinophils # 0.8 H (0-0.7) k/uL Basophils # 0.1 (0-0.2) k/uL Sodium 144 (137-145) mmol/L Potassium 4.6 (3.5-5.1) mmol/L Chloride 111 H (98-107) mmol/L Carbon Dioxide 21 L (22-30) mmol/L Anion Gap 12 mmol/L BUN 37 H (7-17) mg/dL Creatinine 2.23 H (0.52-1.04) mg/dL Est GFR (CKD-EPI)AfAm 28 (>60 ml/min/1.73 sqM) Est GFR (CKD-EPI)NonAf 24 (>60 ml/min/1.73 sqM) Glucose 84 (74-99) mg/dL POC Glucose (mg/dL) 82 (70-110) mg/dL POC Glu Protective Signal Repairer Helper ID Jacquie Mcintyre Calcium 9.9 (8.4-10.2) mg/dL Total Bilirubin 0.3 (0.2-1.3) mg/dL AST 20 (14-36) U/L ALT 18 (4-34) U/L Alkaline Phosphatase 71 (38-126) U/L Total Protein 7.7 (6.3-8.2) g/dL Albumin 4.6 (3.5-5.0) g/dL Urine Color Urine Appearance (Clear) Urine pH (5.0-8.0) Ur Specific [place] (1.001-1.035) Urine Protein (Negative) Urine Glucose (UA) (Negative) Urine Ketones (Negative) Urine Blood (Negative) Urine Nitrite (Negative) Urine Bilirubin (Negative) Urine Urobilinogen (<2.0) mg/dL Ur Leukocyte Esterase (Negative) Urine RBC (0-5) /hpf Urine WBC (0-5) /hpf Ur Squamous Epith Cells (0-4) /hpf Urine Mucus (None) /hpf Coronavirus (PCR) (Not Detectd) 01/07/22 01/07/22 Range/Units 16:17 16:18 WBC (3.8-10.6) k/uL RBC (3.80-5.40) m/uL Hgb (11.4-16.0) gm/dL Hct (34.0-46.0) % MCV (80.0-100.0) fL MCH (25.0-35.0) pg MCHC (31.0-37.0) g/dL RDW (11.5-15.5) % Plt Count (150-450) k/uL MPV Neutrophils % % Lymphocytes % % Monocytes % % Eosinophils % % Basophils % % Neutrophils # (1.3-7.7) k/uL Lymphocytes # (1.0-4.8) k/uL Monocytes # (0-1.0) k/uL Eosinophils # (0-0.7) k/uL Basophils # (0-0.2) k/uL Sodium (137-145) mmol/L Potassium (3.5-5.1) mmol/L Chloride (98-107) mmol/L Carbon Dioxide (22-30) mmol/L Anion Gap mmol/L BUN (7-17) mg/dL Creatinine (0.52-1.04) mg/dL Est GFR (CKD-EPI)AfAm (>60 ml/min/1.73 sqM) Est GFR (CKD-EPI)NonAf (>60 ml/min/1.73 sqM) Glucose (74-99) mg/dL POC Glucose (mg/dL) (70-110) mg/dL POC Glu Protective Signal Repairer Helper ID Calcium (8.4-10.2) mg/dL Total Bilirubin (0.2-1.3) mg/dL AST (14-36) U/L ALT (4-34) U/L Alkaline Phosphatase (38-126) U/L Total Protein (6.3-8.2) g/dL Albumin (3.5-5.0) g/dL Urine Color Light Yellow Urine Appearance Clear (Clear) Urine pH 5.0 (5.0-8.0) Ur Specific [place] 1.013 (1.001-1.035) Urine Protein 1+ H (Negative) Urine Glucose (UA) 3+ H (Negative) Urine Ketones Negative (Negative) Urine Blood Negative (Negative) Urine Nitrite Negative (Negative) Urine Bilirubin Negative (Negative) Urine Urobilinogen <2.0 (<2.0) mg/dL Ur Leukocyte Esterase Trace H (Negative) Urine RBC <1 (0-5) /hpf Urine WBC 1 (0-5) /hpf Ur Squamous Epith Cells <1 (0-4) /hpf Urine Mucus Rare H (None) /hpf Coronavirus (PCR) Not Detected (Not Detectd) Disposition Clinical Impression: Hypoglycemia, Chronic kidney disease (CKD) Disposition: ADMITTED IP TO THIS [facility] Condition: Good Referrals: Robbie Nieves MD [Primary Care Provider] - 1-2 days Decision Time: 18:27
[2022-01-07 16:37] LABS: Basophils # (A) 0.1 k/uL (0-0.2); Basophils % (A) 1 %; Eosinophils # (A) 0.8 k/uL (0-0.7); Eosinophils % (A) 8 %; HCT 35.4 % (34.0-46.0); HGB 11.7 gm/dL (11.4-16.0); Lymphocytes # (A) 1.2 k/uL (1.0-4.8); Lymphocytes % (A) 13 %; MCH 29.8 pg (25.0-35.0); MCHC 33.1 g/dL (31.0-37.0); MCV 89.8 fL (80.0-100.0); Mean Platelet Volume 6.8; Monocytes # (A) 0.5 k/uL (0-1.0); Monocytes % (A) 5 %; Neutrophils # (A) 7.1 k/uL (1.3-7.7); Neutrophils % (A) 73 %; Platelet Count 192 k/uL (150-450); RBC 3.95 m/uL (3.80-5.40); RDW 13.8 % (11.5-15.5); WBC 9.7 k/uL (3.8-10.6)
[2022-01-07 16:39] LABS: Appearance,Urine Clear (Clear); Bilirubin,Urine Negative (Negative); Blood,Urine Negative (Negative); Color,Urine Light Yellow; Glucose,Urine (UA) 3+ (Negative); Ketones,Urine Negative (Negative); Leukocyte Esterase,Urine Trace (Negative); Mucus,Urine Rare /hpf; Nitrite,Urine Negative (Negative); Protein,Urine 1+ (Negative); RBC,Urine <1 /hpf (0-5); Specific Gravity,Urine 1.013 (1.001-1.035); Squamous Epithelial Cell,Urine <1 /hpf (0-4); Urobilinogen,Urine <2.0 mg/dL (<2.0); WBC,Urine 1 /hpf (0-5)
[2022-01-07 17:15] LABS: Albumin 4.6 g/dL (3.5-5.0); Calcium 9.9 mg/dL (8.4-10.2); Potassium 4.6 mmol/L (3.5-5.1); Total Bilirubin 0.3 mg/dL (0.2-1.3); Total Protein 7.7 g/dL (6.3-8.2)
[2022-01-07] MEDS: SODIUM CHLORIDE 0.9% 1,000 ML IV SCH (18:45)
[2022-01-07 19:48] LABS: Glucose,Whole Blood 85 mg/dL (70-110)
[2022-01-07 23:27] LABS: Glucose,Whole Blood 104 mg/dL (70-110)
[2022-01-08 00:34] LABS: Glucose,Whole Blood 141 mg/dL (70-110)
[2022-01-08] MEDS: SODIUM CHLORIDE 0.9% 1,000 ML IV SCH ×2 (05:38→10:06)
[2022-01-08 06:04] LABS: Glucose,Whole Blood 111 mg/dL (70-110)
[2022-01-08] MEDS ORDERED: ALPRAZolam 0.25 MG TAB PO PRN (07:48)
[2022-01-08] MEDS ORDERED: ALBUTEROL NEBULIZED 2.5 MG/3 ML INHALATION PRN (07:48)
[2022-01-08] MEDS: MONTELUKAST 10 MG TAB PO SCH (08:39)
[2022-01-08] MEDS: ASPIRIN 81 MG PO SCH (08:39)
[2022-01-08] MEDS: amLODIPine 10 MG TAB PO SCH (08:39)
[2022-01-08] MEDS: LOSARTAN 50 MG TAB PO SCH (08:39)
[2022-01-08] MEDS: FAMOTIDINE 20 MG TAB PO SCH (08:39)
[2022-01-08] MEDS: carvediloL 12.5 MG TAB PO SCH ×2 (10:04→17:50)
[2022-01-08] MEDS: ISOSORBIDE MONONITRATE 10 MG TAB PO SCH (10:05)
[2022-01-08 12:02] LABS: Glucose,Whole Blood 160 mg/dL (70-110)
--- NOTE | 2022-01-08 14:37 | HP ---
HISTORY AND PHYSICAL DATE OF SERVICE: 01/08/2022 CHIEF COMPLAINT: Hypoglycemia. HISTORY OF PRESENT ILLNESS: This 56-year-old woman with a past medical history of CAD, CHF, CVA, diabetes mellitus, being followed by Dr. Nieves in the outpatient setting, was admitted with hypoglycemia. Sugars were dropping to 40s and 50s in the past 3 days. The patient was taking blood sugars at home. There is no history of any fever, rigors or chills. No history of headache, loss of consciousness, seizures. The patient appears to be tired and there is some slurring of speech, also. PAST MEDICAL HISTORY: Reviewed. It includes CHF and diabetes mellitus and multiple other medical issues. HOME MEDICATIONS: Reviewed. They include gabapentin. Doses and the rest of the medications are noted. ALLERGIES: REVIEWED. ALLERGIES INCLUDE PENICILLIN. FAMILY HISTORY: History of diabetes mellitus in the family. SOCIAL HISTORY: No history of smoking. No history of alcohol intake. REVIEW OF SYSTEMS: Fourteen-point review of systems negative except as mentioned earlier. PHYSICAL EXAMINATION: Pulse is 82, blood pressure 153/80, respiration 19. HEENT: Conjunctivae normal. NECK: No jugular venous distention. CARDIOVASCULAR: S1, S2 muffled. RESPIRATION: Breath sounds diminished at the bases. A few scattered rhonchi. ABDOMEN: Soft, nontender. LEGS: No edema. No swelling. NERVOUS SYSTEM: Diffusely weak. SKIN: No ulcer, rash, bleeding. JOINTS: No active deforming arthropathy. LABS: Accu-Cheks noted. ASSESSMENT: 1. Severe recurrent hypoglycemia for evaluation. 2. Diabetes mellitus, type 2. 3. History of cerebrovascular accident, transient ischemic attack. 4. Hypertension. 5. Hyperlipidemia. 6. Multiple medical issues. RECOMMENDATIONS AND DISCUSSION: In this 56-year-old woman who presented with multiple complex medical issues, we will monitor the patient closely, continue the current medications, continue symptomatic treatment. I would recommend monitoring the blood sugars closely. Adjust the medications. The blood sugars are in the 160s at this time. Guarded prognosis because of multiple complex medical conditions. Further recommendations to follow. See orders for further details. MMODL / IJN: [id number] /
[2022-01-08] MEDS: IPRATROPIUM 0.5 MG/2.5 ML NEBU INHALATION SCH ×3 (15:23→21:03)
[2022-01-08] MEDS: SYMBICORT 80-4.5 MCG INHALER INHALATION SCH ×2 (15:24→21:03)
[2022-01-08 17:00] LABS: Glucose,Whole Blood 201 mg/dL (70-110)
[2022-01-08] MEDS: INSULIN ASPART (NovoLOG) 100 UNIT/ML VIAL SQ SCH ×2 (17:50→20:18)
[2022-01-08 20:10] LABS: Glucose,Whole Blood 218 mg/dL (70-110)
[2022-01-08] MEDS: PRAVASTATIN SODIUM 20 MG TAB PO SCH (20:19)
[2022-01-08] MEDS ORDERED: CITALOPRAM HYDROBROMIDE 20 MG TAB PO SCH (21:00)
[2022-01-09 02:11] LABS: Glucose,Whole Blood 114 mg/dL (70-110)
[2022-01-09] MEDS: IPRATROPIUM 0.5 MG/2.5 ML NEBU INHALATION SCH ×2 (07:01→10:52)
[2022-01-09] MEDS: SYMBICORT 80-4.5 MCG INHALER INHALATION SCH (07:01)
[2022-01-09 07:06] VITALS: BP 156/91; RESP 17; TEMP 98.5
[2022-01-09] MEDS: carvediloL 12.5 MG TAB PO SCH (07:47)
[2022-01-09] MEDS: amLODIPine 10 MG TAB PO SCH (07:48)
[2022-01-09] MEDS: MONTELUKAST 10 MG TAB PO SCH (07:48)
[2022-01-09] MEDS: FAMOTIDINE 20 MG TAB PO SCH (07:48)
[2022-01-09] MEDS: LOSARTAN 50 MG TAB PO SCH (07:48)
[2022-01-09] MEDS: ISOSORBIDE MONONITRATE 10 MG TAB PO SCH (07:48)
[2022-01-09] MEDS: ASPIRIN 81 MG PO SCH (07:48)
[2022-01-09] MEDS: PRAVASTATIN SODIUM 20 MG TAB PO SCH (07:48)
[2022-01-09] MEDS: INSULIN ASPART (NovoLOG) 100 UNIT/ML VIAL SQ SCH ×2 (07:51→12:58)
[2022-01-09 08:59] VITALS: PULSE 87
[2022-01-09] MEDS ORDERED: allopurinoL 100 MG TAB PO SCH (09:00)
[2022-01-09 10:06] LABS: Basophils # (A) 0.05 X 10*3/uL (0.00-0.10); Basophils % (A) 0.7 %; Eosinophils % (A) 11.5 %; HCT 32.5 % (37.2-46.3); HGB 10.2 g/dL (12.0-15.0); Immature Grans, Automated 0.4 %; Lymphocytes # (A) 1.37 X 10*3/uL (0.90-5.00); Lymphocytes % (A) 19.8 %; MCH 28.3 pg (27.0-32.0); MCHC 31.4 g/dL (32.0-37.0); Mean Platelet Volume 9.6 fL (9.5-12.2); Monocytes # (A) 0.53 X 10*3/uL (0.20-1.00); Monocytes % (A) 7.6 %; NRBC Per 100 WBC 0 /100 WBCS (0.0-0.0); Neutrophils # (A) 4.15 X 10*3/uL (1.80-7.70); Platelet Count 171 X 10*3/uL (140-440); RBC 3.61 X 10*6/uL (4.10-5.20); RDW 13.2 % (11.5-14.5); WBC 6.93 X 10*3/uL (4.50-10.00)
[2022-01-09] MEDS: SODIUM CHLORIDE 0.9% 1,000 ML IV SCH (10:39)
[2022-01-09] MEDS ORDERED: ACETAMINOPHEN TAB 325 MG TAB PO PRN (11:34)
[2022-01-09 11:41] LABS: African American GFR (CKD) 33.2 (60.0-200.0); Albumin 3.9 g/dL (3.8-4.9); Albumin/Globulin Ratio 1.56 (1.60-3.17); Anion Gap 9.8 mmol/L (10.00-18.00); BUN/Creat Ratio 14.4 Ratio (12.00-20.00); Blood Urea Nitrogen 27.8 mg/dL (9.0-27.0); Calcium 9.5 mg/dL (8.7-10.3); Carbon Dioxide 21.4 mmol/L (20.0-27.5); Globulin 2.5 g/dL (1.6-3.3); Non-African American GFR(CKD) 28.6 (60.0-200.0); Potassium 4.1 mmol/L (3.5-5.5); Total Bilirubin 0.3 mg/dL (0.30-1.20); Total Protein 6.4 g/dL (6.2-8.2)
[2022-01-09 11:44] LABS: Glucose,Whole Blood 179 mg/dL (70-110)
--- NOTE | 2022-01-12 09:32 | P.DS ---
Providers Date of admission: 01/07/22 18:10 Expected date of discharge: 01/09/22 Attending physician: Anca Menard Consults: 01/07/22 18:13 Consult Physician Stat Consulting Provider: Norberto Javier Consult Reason/Comments: hypoglycemia Do you want consulting provider notified?: Yes Primary care physician: Robbie Nieves Hospital Course: Final diagnosis Severe recurrent hypoglycemia for evaluation Diabetes mellitus, type II uncontrolled with hypoglycemia History of CVA, TIA hypertension Hyperlipidemia multiple medical issues Discharge disposition Patient is being discharged in a stable condition with guarded prognosis to home . Patient will follow-up with Dr. Nieves in the outpatient setting upon discharge. Patient is to continue with post monitoring of Accu-Cheks before meals and at bedtime and instructed to keep a diary of blood sugar readings and follow-up with primary care provider in the next few days. Prescription also provided for follow-up labs of CBC and BMP. Total time taken is greater than 35 minutes. Hospital course This is a 56-year-old female who was recently admitted with hypoglycemia and was being closely monitored. Patient reports to decreased oral intake over the last few days and having episodes of blood sugars into the 40s in the 50s. Patient reports to checking blood sugars and encourage the patient to continue mon itoring Accu-Cheks before meals and at bedtime and continue with current medication regimen of sliding scale and close outpatient follow-up with primary care provider. Oral diabetic agents also on hold until primary care follow-up and repeat labs. Prescription provided for follow-up labs and again encourage the patient to closely monitor the blood sugars and bring a diary to Dr. Mahmood's office for primary care follow-up. She reports to feeling better tolerating oral intake and would like to go home today. is her caregiver. Currently no reports of chest pain, shortness of breath, or palpitations. Patient is afebrile. No reports of nausea or vomiting and patient is tolerating diet. Patient will be discharged home today. On exam vital signs are stable. Cardio S1, S2 are muffled. Respiratory system shows diminished breath sounds at the bases with no wheezing or rhonchi noted. Abdomen is soft and obese, and nontender. Nervous system shows no focal deficits. Please refer to medication reconciliation sheet for a list of medications. The impression and plan of care has been dictated by Margo Rene, Nurse Practitioner as directed. Dr. Harris MD I have performed a history and examination and MDM of this patient, discussed the same with the dictator, and agree with the dictator's assessment and plan as written ,documented as a scribe. Based on total visit time, I have performed more than 50% of the visit. Patient Condition at Discharge: Good Plan - Discharge Summary New Discharge Prescriptions: New Acetaminophen Tab [Tylenol] 650 mg PO Q6HR PRN tab PRN Reason: Fever And/ Or Pain Continue Gabapentin 600 mg PO BID PRN PRN Reason: Pain Citalopram Hydrobromide [CeleXA] 40 mg PO HS Cetirizine HCl [Zyrtec] 10 mg PO DAILY carvediloL [Coreg] 25 mg PO BID Famotidine 20 mg PO DAILY traMADol HCL [Ultram] 50 mg PO BID PRN PRN Reason: Pain Aspirin 81 mg PO DAILY #100 chew Triamcinolone Acetonide [Nasacort] 1 spr EA NOSTRIL DAILY Fluticasone/Umeclidin/Vilanter [Trelegy Ellipta 100-62.5-25] 1 puff INHALATI ON RT-DAILY Pravastatin Sodium [Pravachol] 20 mg PO HS Montelukast [Singulair] 10 mg PO DAILY Isosorbide Mononitrate [Ismo] 10 mg PO DAILY amLODIPine [Norvasc] 10 mg PO DAILY ALPRAZolam [Xanax] 0.25 mg PO TID PRN PRN Reason: Anxiety Albuterol Sulfate [Albuterol Sulfate Hfa] 1 - 2 puff INHALATION RT-QID PRN PRN Reason: Shortness Of Breath Semaglutide [Ozempic] 0.5 mg SQ GARCIA traZODone HCL [Desyrel] 100 mg PO HS PRN PRN Reason: Insomnia Losartan Potassium 100 mg PO DAILY allopurinoL [Zyloprim] 50 mg PO Q48H Changed Insulin Aspart [NovoLOG Flexpen] See Protocol SQ ACHS #0 Discontinued Glimepiride [Amaryl] 2 mg PO DAILY Dapagliflozin Propanediol [Farxiga] 10 mg PO DAILY Discharge Medication List Citalopram Hydrobromide [CeleXA] 40 mg PO HS 02/25/17 [History] Gabapentin 600 mg PO BID PRN 02/25/17 [History] Cetirizine HCl [Zyrtec] 10 mg PO DAILY 11/14/17 [History] carvediloL [Coreg] 25 mg PO BID 10/16/18 [History] Famotidine 20 mg PO DAILY 08/22/20 [History] traMADol HCL [Ultram] 50 mg PO BID PRN 08/22/20 [History] Albuterol Sulfate [Albuterol Sulfate Hfa] 1 - 2 puff INHALATION RT-QID PRN 09/30/20 [History] Aspirin 81 mg PO DAILY #100 chew 10/14/20 [Rx] Semaglutide [Ozempic] 0.5 mg SQ GARCIA 06/19/21 [History] ALPRAZolam [Xanax] 0.25 mg PO TID PRN 01/07/22 [History] Fluticasone/Umeclidin/Vilanter [Trelegy Ellipta 100-62.5-25] 1 puff INHALATION RT-DAILY 01/07/22 [History] Isosorbide Mononitrate [Ismo] 10 mg PO DAILY 01/07/22 [History] Losartan Potassium 100 mg PO DAILY 01/07/22 [History] Montelukast [Singulair] 10 mg PO DAILY 01/07/22 [History] Pravastatin Sodium [Pravachol] 20 mg PO HS 01/07/22 [History] Triamcinolone Acetonide [Nasacort] 1 spr EA NOSTRIL DAILY 01/07/22 [History] allopurinoL [Zyloprim] 50 mg PO Q48H 01/07/22 [History] amLODIPine [Norvasc] 10 mg PO DAILY 01/07/22 [History] traZODone HCL [Desyrel] 100 mg PO HS PRN 01/07/22 [History] Acetaminophen Tab [Tylenol] 650 mg PO Q6HR PRN tab 01/09/22 [Rx] Insulin Aspart [NovoLOG Flexpen] See Protocol SQ ACHS #0 01/09/22 [Rx] Follow up Appointment(s)/Referral(s): Robbie Nieves MD [Primary Care Provider] - 1-2 days Ambulatory/Diagnostic Orders: Basic Metabolic Panel [LAB.AMB] Location: None Selected Complete Blood Count w/diff [LAB.AMB] Time Frame: 3 Days, Location: None Selected Patient Instructions/Handouts: Hypoglycemia in a Person with Diabetes (GEN) Activity/Diet/Wound Care/Special Instructions: Activity Limited until follow-up Continue with consistent carb heart healthy diet Continue to hold oral diabetic medications and continue with Accu-Cheks before meals and at bedtime and sliding scale as needed NovoLog sliding scale 0-150 equals 0 units 151-200 equals 2 units 201-250 equals 4 units 251-300 equals 6 units 301-350 equals 8 units 351-400 equals 10 units Please notify provider if blood sugar is 400 or above Follow-up with primary care provider on discharge and recommend repeat labs in 2-3 days to monitor CBC and BMP Discharge Disposition: HOME SELF-CARE
== END 2022-01-09 14:28 | disposition home or self-care (01) ==
LOC: EC 11:47 → 6NMEDSUR 18:10
PROVIDERS: ADMIT Internal Medicine; ATTEND Internal Medicine
DX: E11.649 Type 2 diabetes mellitus with hypoglycemia without coma (principal); I13.0 Hypertensive heart and chronic kidney disease with heart failure and stage 1 through stage 4 chronic kidney disease, or unspecified chronic kidney disease; E11.22 Type 2 diabetes mellitus with diabetic chronic kidney disease; N18.30 Chronic kidney disease, stage 3 unspecified; I50.9 Heart failure, unspecified; E78.5 Hyperlipidemia, unspecified; E66.9 Obesity, unspecified; Z68.39 Body mass index [BMI] 39.0-39.9, adult; I25.10 Atherosclerotic heart disease of native coronary artery without angina pectoris; E11.40 Type 2 diabetes mellitus with diabetic neuropathy, unspecified; K21.9 Gastro-esophageal reflux disease without esophagitis; K44.9 Diaphragmatic hernia without obstruction or gangrene; H54.7 Unspecified visual loss; D50.9 Iron deficiency anemia, unspecified; E55.9 Vitamin D deficiency, unspecified; F41.9 Anxiety disorder, unspecified; T38.3X6A Underdosing of insulin and oral hypoglycemic [antidiabetic] drugs, initial encounter; Z91.128 Patient's intentional underdosing of medication regimen for other reason; Z20.822 Contact with and (suspected) exposure to COVID-19; Z71.9 Counseling, unspecified; Z86.14 Personal history of Methicillin resistant Staphylococcus aureus infection; Z86.73 Personal history of transient ischemic attack (TIA), and cerebral infarction without residual deficits; Z87.440 Personal history of urinary (tract) infections; Z87.01 Personal history of pneumonia (recurrent); Z86.16 Personal history of COVID-19; Z87.11 Personal history of peptic ulcer disease; Z79.899 Other long term (current) drug therapy; Z79.4 Long term (current) use of insulin; Z79.02 Long term (current) use of antithrombotics/antiplatelets; Z79.2 Long term (current) use of antibiotics; Z91.048 Other nonmedicinal substance allergy status; Z88.1 Allergy status to other antibiotic agents; Z88.0 Allergy status to penicillin; Z88.5 Allergy status to narcotic agent; Z91.013 Allergy to seafood; Z88.2 Allergy status to sulfonamides; Z82.49 Family history of ischemic heart disease and other diseases of the circulatory system; Z83.3 Family history of diabetes mellitus; Z80.8 Family history of malignant neoplasm of other organs or systems; Z80.42 Family history of malignant neoplasm of prostate
CPT/HCPCS: 96360; 96361; 99285; 36415; 94640 ×4; 80053 ×2; 85025 ×2; 81001; 87635; G0378 ×3

== ENCOUNTER 2022-03-24 12:13 | Emergency (ER) | payer BC, MEDICARE ==
--- NOTE | 2022-03-24 15:19 | ED ---
General Adult HPI - General Chief complaint: GI Bleed Stated complaint: vomiting, black stools Time Seen by Provider: 03/24/22 15:07 Source: patient Mode of arrival: ambulatory Limitations: no limitations - History of Present Illness Initial comments: Dictation was produced using [employer] dictation software. please excuse any grammatical, word or spelling errors. Chief Complaint: 57-year-old female multiple comorbidities presents emergency department for GI bleed History of Present Illness: Is 57-year-old female she reports that she has a history of peptic ulcer disease first diagnosed 2 years ago. Patient states that over the last 2 weeks she's had multiple bouts of black emesis and black stools. Patient is having GI specialist however he unexpectedly. She has not followed up with a GI specialist since then. Patient states she does have some mild lower abdominal pain. She decided come to the emergency department today because she had a large volume of loose black stool. Patient has been feeling lightheaded the last few days. She had had one bout of fever sometime last week. She does not take any anticoagulation medications. The ROS documented in this emergency department record has been reviewed and confirmed by me. Those systems with pertinent positive or negative responses have been documented in the HPI. All other systems are other negative and/or noncontributory. PHYSICAL EXAM: General Impression: Alert and oriented x3, not in acute distress HEENT: Normocephalic atraumatic, extra-ocular movements intact, pupils equal and reactive to light bilaterally, mucous membranes moist. Cardiovascular: Heart regular rate and rhythm Chest: Able to complete full sentences, no retractions, no tachypnea Abdomen: abdomen soft, mild palpatory tenderness to the intra-abdominal area, non-distended, no organomegaly Musculoskeletal: Pulses present and equal in all extremities, no peripheral johan a Motor: no focal deficits noted Neurological: CN II-XII grossly intact, no focal motor or sensory deficits noted Skin: Intact with no visualized rashes Psych: Normal affect and mood Rectal exam: There are anal skin tags without any active source of bleeding, there is melanotic residue with digital rectal exam ED course: 57-year-old male presents to the emergency department with coffee- ground emesis and melanotic stool. Vital signs upon arrival are within acceptable limits. Laboratory evaluation obtained. CBC unremarkable. Coag panel is negative. Metabolic panel is within acceptable limits. Initial potassium level .2 with hemolysis. Recheck is 4.3. Cranial is 2.24 with a BUN of 38 which appears to be patient's baseline. Stool occult blood is negative. Patient reevaluated at bedside. More history was obtained. Patient states she's been having reflux symptoms recently and has been taking Pepto-Bismol. This is likely why patient's stool is dark. Computed tomography scan of the abdomen and pelvis shows nonspecific findings. Nothing acute. Patient observed in the emergency Department for proximally 4 hours and 22 minutes. Patient reevaluated at bedside at 4:30 PM found with stable medical condition. Patient likely not having a GI bleed and her black stool is attribute it to Pepto-Bismol. Advised follow-up with primary care doctor. She is prescribed Zofran for her nausea. - Related Data Home Medications Medication Instructions Recorded Confirmed Citalopram Hydrobromide [CeleXA] 40 mg PO HS 02/25/17 01/07/22 Gabapentin 600 mg PO BID PRN 02/25/17 01/07/22 Cetirizine HCl [Zyrtec] 10 mg PO DAILY 11/14/17 01/07/22 carvediloL [Coreg] 25 mg PO BID 10/16/18 01/07/22 Famotidine 20 mg PO DAILY 08/22/20 01/07/22 traMADol HCL [Ultram] 50 mg PO BID PRN 08/22/20 01/07/22 Albuterol Sulfate [Albuterol 1 - 2 puff INHALATION RT-QID PRN 09/30/20 01/07/22 Sulfate Hfa] Semaglutide [Ozempic] 0.5 mg SQ GARCIA 06/19/21 01/07/22 ALPRAZolam [Xanax] 0.25 mg PO TID PRN 01/07/22 01/07/22 Fluticasone/Umeclidin/Vilanter 1 puff INHALATION RT-DAILY 01/07/22 01/07/22 [Trelegy Ellipta 100-62.5-25] Isosorbide Mononitrate [Ismo] 10 mg PO DAILY 01/07/22 01/07/22 Losartan Potassium 100 mg PO DAILY 01/07/22 01/07/22 Montelukast [Singulair] 10 mg PO DAILY 01/07/22 01/07/22 Pravastatin Sodium [Pravachol] 20 mg PO HS 01/07/22 01/07/22 Triamcinolone Acetonide [Nasacort] 1 spr EA NOSTRIL DAILY 01/07/22 01/07/22 allopurinoL [Zyloprim] 50 mg PO Q48H 01/07/22 01/07/22 amLODIPine [Norvasc] 10 mg PO DAILY 01/07/22 01/07/22 traZODone HCL [Desyrel] 100 mg PO HS PRN 01/07/22 01/07/22 Previous Rx's Medication Instructions Recorded Aspirin 81 mg PO DAILY #100 chew 10/14/20 Acetaminophen Tab [Tylenol] 650 mg PO Q6HR PRN tab 01/09/22 Insulin Aspart [NovoLOG Flexpen] See Protocol SQ ACHS #0 01/09/22 Ondansetron Odt [Zofran Odt] 4 mg PO Q8HR PRN #12 tab 03/24/22 Allergies Allergy/AdvReac Type Severity Reaction Status Date / Time hydrocodone [From [place]] Allergy Hallucinati Verified 03/24/22 13:02 ons/vomitin g Penicillins Allergy Anaphylaxis Verified 03/24/22 13:02 Sulfa (Sulfonamide Allergy Anaphylaxis Verified 03/24/22 13:02 Antibiotics) adhesive tape AdvReac Itching/swe Verified 03/24/22 13:02 lling cephalexin [From Keflex] AdvReac Unknown Verified 03/24/22 13:02 Childhood measles, mumps, and rubella AdvReac Rash/Hives Verified 03/24/22 13:02 vaccine shellfish derived [Shrimp] AdvReac Rash/Hives Verified 03/24/22 13:02 Oydkiju-SEH-KwR Reductase AdvReac Unknown Verified 03/24/22 13:02 Inhibitor [Ftbqvvm-Xip-Mwn Reductase Inhibitor] Review of Systems ROS Statement: Those systems with pertinent positive or pertinent negative responses have been documented in the HPI. ROS Other: All systems not noted in ROS Statement are negative. Past Medical History Past Medical History: Coronary Artery Disease (CAD), Heart Failure, CVA/TIA, Diabetes Mellitus, Eye Disorder, GERD/Reflux, Hyperlipidemia, Hypertension, Pneumonia, Renal Disease Additional Past Medical History / Comment(s): Pt tested covid+ 09/30/20 at [facility] ER. 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 Past Anesthesia/Blood Transfusion Reactions: Motion Sickness, Postoperative Nausea & Vomiting (PONV) Additional Past Anesthesia/Blood Transfusion Reaction / Comment(s): asthma attack during EGD. mom PONV Past Psychological History: Anxiety Smoking Status: Never smoker Past Alcohol Use History: None Reported Past Drug Use History: None Reported - Past Family History Father Family Medical History: Cancer, Diabetes Mellitus Additional Family Medical History / Comment(s): cancerous polyp, prostate cancer Mother Family Medical History: Hypertension Additional Family Medical History / Comment(s): Mother had irregular heartbeat General Exam Limitations: no limitations Course Vital Signs 03/24/22 03/24/22 03/24/22 12:58 14:55 15:59 Temperature 97.9 F 97.5 F L Pulse Rate 84 84 85 Respiratory 20 18 Rate Blood Pressure 152/82 153/86 145/88 O2 Sat by Pulse 97 95 97 Oximetry Medical Decision Making - Lab Data Result diagrams: 03/24/22 14:55 03/24/22 16:01 Lab Results 03/24/22 03/24/22 03/24/22 Range/Units 14:55 14:55 14:55 WBC 9.6 (3.8-10.6) k/uL RBC 4.25 (3.80-5.40) m/uL Hgb 12.7 (11.4-16.0) gm/dL Hct 38.7 (34.0-46.0) % MCV 91.0 (80.0-100.0) fL MCH 29.9 (25.0-35.0) pg MCHC 32.9 (31.0-37.0) g/dL RDW 14.4 (11.5-15.5) % Plt Count 207 (150-450) k/uL MPV 7.1 Neutrophils % 55 % Lymphocytes % 13 % Monocytes % 4 % Eosinophils % 28 % Basophils % 0 % Neutrophils # 5.2 (1.3-7.7) k/uL Lymphocytes # 1.2 (1.0-4.8) k/uL Monocytes # 0.3 (0-1.0) k/uL Eosinophils # 2.7 H (0-0.7) k/uL Basophils # 0.0 (0-0.2) k/uL PT 10.2 (9.0-12.0) sec INR 0.9 (<1.2) APTT 19.1 L (22.0-30.0) sec Sodium 140 (137-145) mmol/L Potassium 6.2 H* (3.5-5.1) mmol/L Chloride 108 H (98-107) mmol/L Carbon Dioxide 22 (22-30) mmol/L Anion Gap 10 mmol/L BUN 38 H (7-17) mg/dL Creatinine 2.24 H (0.52-1.04) mg/dL Est GFR (CKD-EPI)AfAm 27 (>60 ml/min/1.73 sqM) Est GFR (CKD-EPI)NonAf 24 (>60 ml/min/1.73 sqM) Glucose 111 H (74-99) mg/dL Calcium 9.0 (8.4-10.2) mg/dL Stool Occult Blood (Negative) 03/24/22 03/24/22 Range/Units 15:35 16:01 WBC (3.8-10.6) k/uL RBC (3.80-5.40) m/uL Hgb (11.4-16.0) gm/dL Hct (34.0-46.0) % MCV (80.0-100.0) fL MCH (25.0-35.0) pg MCHC (31.0-37.0) g/dL RDW (11.5-15.5) % Plt Count (150-450) k/uL MPV Neutrophils % % Lymphocytes % % Monocytes % % Eosinophils % % Basophils % % Neutrophils # (1.3-7.7) k/uL Lymphocytes # (1.0-4.8) k/uL Monocytes # (0-1.0) k/uL Eosinophils # (0-0.7) k/uL Basophils # (0-0.2) k/uL PT (9.0-12.0) sec INR (<1.2) APTT (22.0-30.0) sec Sodium (137-145) mmol/L Potassium 4.3 (3.5-5.1) mmol/L Chloride (98-107) mmol/L Carbon Dioxide (22-30) mmol/L Anion Gap mmol/L BUN (7-17) mg/dL Creatinine (0.52-1.04) mg/dL Est GFR (CKD-EPI)AfAm (>60 ml/min/1.73 sqM) Est GFR (CKD-EPI)NonAf (>60 ml/min/1.73 sqM) Glucose (74-99) mg/dL Calcium (8.4-10.2) mg/dL Stool Occult Blood n (Negative) Disposition Clinical Impression: Black stool Disposition: HOME SELF-CARE Condition: Good Instructions (If sedation given, give patient instructions): Bismuth Subsalicylate (By mouth) Prescriptions: Ondansetron Odt [Zofran Odt] 4 mg PO Q8HR PRN #12 tab PRN Reason: Nausea Is patient prescribed a controlled substance at d/c from ED?: No Referrals: Robbie Nieves MD [Primary Care Provider] - 1-2 days Time of Disposition: 16:37
[2022-03-24 15:26] LABS: Basophils % (A) 0 %; Eosinophils # (A) 2.7 k/uL (0-0.7); HCT 38.7 % (34.0-46.0); HGB 12.7 gm/dL (11.4-16.0); Lymphocytes # (A) 1.2 k/uL (1.0-4.8); Lymphocytes % (A) 13 %; MCH 29.9 pg (25.0-35.0); MCHC 32.9 g/dL (31.0-37.0); Mean Platelet Volume 7.1; Monocytes # (A) 0.3 k/uL (0-1.0); Monocytes % (A) 4 %; Neutrophils # (A) 5.2 k/uL (1.3-7.7); Neutrophils % (A) 55 %; Platelet Count 207 k/uL (150-450); RBC 4.25 m/uL (3.80-5.40); RDW 14.4 % (11.5-15.5); WBC 9.6 k/uL (3.8-10.6)
[2022-03-24 15:31] LABS: INR 0.9 (<1.2); Prothrombin Time 10.2 sec (9.0-12.0)
[2022-03-24 15:34] LABS: Potassium 6.2 mmol/L (3.5-5.1)
[2022-03-24 15:37] LABS: Partial Thromboplastin Time 19.1 sec (22.0-30.0)
[2022-03-24 15:38] LABS: Eosinophils % (A) 28 %
[2022-03-24 16:01] VITALS: RESP 18
[2022-03-24] MEDS ORDERED: ONDANSETRON 4 MG/2 ML VIAL IVP STA (16:06)
--- NOTE | 2022-03-24 16:21 | CT ---
EXAMINATION TYPE: CT abdomen pelvis wo con DATE OF EXAM: 03/24/2022 COMPARISON: 08/15/2017 HISTORY: 57-year-old female abdominal pain, vomiting and dark stools CT DLP: 1189.4 mGycm. Automated exposure control for dose reduction was used. TECHNIQUE: Contiguous axial scanning of the abdomen and pelvis without IV contrast. Coronal and sagit matilde reconstructions performed. FINDINGS: Heart normal size but with a trace 6 mm pericardial effusion. Trace bilateral pleural effusions are a lso noted. Some subtle nodular groundglass density at the basilar left lower lobe. Tiny hilar hernia. Lack of IV contrast limits assessment of the solid abdominal viscera, lymph nodes, and vascular structures. Noncontrast appearance of the liver shows a subtle 1.0 cm hypodensity right hepatic dome which appear s to have been present and on the 2018 exam suggesting a tiny cyst. Gallbladder, adrenal glands, spleen, and pancreas show no gross abnormality. A number of bilateral renal cysts measuring up to 4.3 cm on the right and 4.6 cm on the left. No hydr onephrosis. Clustered borderline to mildly enlarged left mid abdominal mesenteric lymph nodes measuring up to 1.4 cm with some minimal burak mesentery, refer to axial images 65 through 75 and coronal image 43. No dilated small bowel, free fluid, or free air. No retroperitoneal lymphadenopathy. Scattered mild to moderate stool. Redundant sigmoid colon. Normal appendix. No pericolonic inflammato ry change seen. Bladder partially distended. Uterus anteverted. Both ovaries are visualized. Numerous pelvic phleboli ths. No abnormal fluid collection in the pelvis or pelvic lymphadenopathy. Very minimal scattered anasarca change. Bones: Moderate to advanced degenerative disc disease L3-L4. Moderate degenerative disc disease lower thoracic spine. IMPRESSION: 1. Minimal scattered anasarca change as well as trace bilateral pleural effusions. Correlate for thi rd spacing/mild fluid overload state. 2. A 6 mm trace pericardial effusion. Clinically correlate. 3. Some subtle nodular groundglass density at the basilar left lower lobe. Correlate for any acute r espiratory signs/symptoms to exclude early pneumonitis. 4. Clustered left mid abdominal lymph nodes are borderline to mildly enlarged measuring up to 1.4 cm . Correlate for mesenteric panniculitis or mesenteric adenitis. 3-6 month follow-up CT as a precautio nary measure to exclude a more aggressive etiology. 5. Mild to moderate stool burden. Redundant sigmoid colon.
[2022-03-24] MEDS ORDERED: PANTOPRAZOLE 40 MG/10 ML VIAL IVP STA (16:23)
[2022-03-24 17:13] VITALS: BP 146/88; PULSE 80; TEMP 98.2
== END 2022-03-24 17:13 | disposition home or self-care (01) ==
LOC: EC 12:13
DX: R19.5 Other fecal abnormalities (principal); E11.9 Type 2 diabetes mellitus without complications; K21.9 Gastro-esophageal reflux disease without esophagitis; E78.5 Hyperlipidemia, unspecified; I10 Essential (primary) hypertension; Z88.0 Allergy status to penicillin; Z88.2 Allergy status to sulfonamides; Z91.048 Other nonmedicinal substance allergy status; Z88.8 Allergy status to other drugs, medicaments and biological substances; Z88.6 Allergy status to analgesic agent
CPT/HCPCS: 36415; 86900; 86901; 80048; 84132; 85025; 85610; 85730; 86850; 82272; 74176; 99285; 96374; 96375; J2405; C9113

== ENCOUNTER 2022-06-20 18:02 | Inpatient (IN) | payer BC, MEDICARE ==
[2022-06-20] MEDS ORDERED: IPRATROPIUM 0.5 MG/2.5 ML NEBU INHALATION STA (18:15)
[2022-06-20] MEDS ORDERED: TERBUTALINE 1 MG/ML VIAL SQ STA (18:15)
[2022-06-20] MEDS ORDERED: ALBUTEROL NEBULIZED 2.5 MG/3 ML INHALATION STA (18:15)
[2022-06-20] MEDS ORDERED: methylPREDNISolone SOD SUCCI 125 MG/2 ML VIAL IV STA (18:15)
[2022-06-20] MEDS ORDERED: MAGNESIUM SULFATE-D5W PMX 1 GM in DEXTROSE/WATER 1 100ML.BAG IVPB STA (18:15)
[2022-06-20 18:59] LABS: Basophils % (A) 1 %; Eosinophils # (A) 0.7 k/uL (0-0.7); Eosinophils % (A) 10 %; HCT 37.5 % (34.0-46.0); HGB 12.5 gm/dL (11.4-16.0); Lymphocytes # (A) 1.1 k/uL (1.0-4.8); Lymphocytes % (A) 17 %; MCH 29.8 pg (25.0-35.0); MCHC 33.5 g/dL (31.0-37.0); MCV 89.1 fL (80.0-100.0); Mean Platelet Volume 7.5; Monocytes # (A) 0.4 k/uL (0-1.0); Monocytes % (A) 6 %; Neutrophils # (A) 4.4 k/uL (1.3-7.7); Neutrophils % (A) 66 %; Platelet Count 179 k/uL (150-450); RBC 4.21 m/uL (3.80-5.40); RDW 12.8 % (11.5-15.5); WBC 6.7 k/uL (3.8-10.6)
[2022-06-20 19:11] LABS: Albumin 4.3 g/dL (3.5-5.0); Calcium 9.8 mg/dL (8.4-10.2); Magnesium 2.2 mg/dL (1.6-2.3); Potassium 4.7 mmol/L (3.5-5.1); Total Bilirubin 0.4 mg/dL (0.2-1.3); Total Protein 7.2 g/dL (6.3-8.2)
--- NOTE | 2022-06-20 19:13 | XR ---
EXAMINATION TYPE: XR chest 2V DATE OF EXAM: 06/20/2022 7:07 PM COMPARISON: Chest radiographs from 06/18/2021 TECHNIQUE: XR chest 2V Frontal and lateral views of the chest. CLINICAL INDICATION:Female, 57 years old with history of difficulty breathing; FINDINGS: Lungs/Pleura: Right lower lobe airspace opacities. There is no evidence of pleural effusion, focal co nsolidation, or pneumothorax. Pulmonary vascularity: Unremarkable. Heart/mediastinum: Cardiomediastinal silhouette is prominent in size. Musculoskeletal: No acute osseous pathology. IMPRESSION: Right lower lobe airspace opacities not definitely seen on prior's. Correlate for pneumonia
[2022-06-20 19:21] LABS: INR 0.9 (<1.2); Partial Thromboplastin Time 21.1 sec (22.0-30.0); Prothrombin Time 9.9 sec (9.0-12.0)
[2022-06-20] MEDS ORDERED: ALPRAZolam 0.25 MG TAB PO PRN (19:32)
[2022-06-20] MEDS ORDERED: ONDANSETRON 4 MG/2 ML VIAL IVP PRN (19:32)
[2022-06-20] MEDS ORDERED: NALOXONE 0.4 MG/ML 1 ML VIAL IV PRN (19:32)
[2022-06-20] MEDS ORDERED: TEMAZEPAM 15 MG CAP PO PRN (19:32)
[2022-06-20] MEDS ORDERED: HYDROcodone/APAP 5-325MG 1 EACH TAB PO PRN (19:32)
--- NOTE | 2022-06-20 19:32 | ED ---
SOB HPI - General Chief Complaint: Shortness of Breath Stated Complaint: asthma attack, SOB Time Seen by Provider: 06/20/22 18:11 Source: patient Mode of arrival: wheelchair Limitations: no limitations - History of Present Illness Initial Comments: Patient complains of shortness of breath. She has a history of asthma. She tried breathing treatments. It didn't help. She has recently been on antibiotics as well as steroids. She has no swelling in the arms or legs. She has no lightheadedness. She has no dizziness. She has no chest pain or press ure or tightness. She has no palpitations. She has no diaphoresis. - Related Data Home Medications Medication Instructions Recorded Confirmed Citalopram Hydrobromide [CeleXA] 40 mg PO HS 02/25/17 01/07/22 Gabapentin 600 mg PO BID PRN 02/25/17 01/07/22 Cetirizine HCl [Zyrtec] 10 mg PO DAILY 11/14/17 01/07/22 carvediloL [Coreg] 25 mg PO BID 10/16/18 01/07/22 Famotidine 20 mg PO DAILY 08/22/20 01/07/22 traMADol HCL [Ultram] 50 mg PO BID PRN 08/22/20 01/07/22 Albuterol Sulfate [Albuterol 1 - 2 puff INHALATION RT-QID PRN 09/30/20 01/07/22 Sulfate Hfa] Semaglutide [Ozempic] 0.5 mg SQ GARCIA 06/19/21 01/07/22 ALPRAZolam [Xanax] 0.25 mg PO TID PRN 01/07/22 01/07/22 Fluticasone/Umeclidin/Vilanter 1 puff INHALATION RT-DAILY 01/07/22 01/07/22 [Trelegy Ellipta 100-62.5-25] Isosorbide Mononitrate [Ismo] 10 mg PO DAILY 01/07/22 01/07/22 Losartan Potassium 100 mg PO DAILY 01/07/22 01/07/22 Montelukast [Singulair] 10 mg PO DAILY 01/07/22 01/07/22 Pravastatin Sodium [Pravachol] 20 mg PO HS 01/07/22 01/07/22 Triamcinolone Acetonide [Nasacort] 1 spr EA NOSTRIL DAILY 01/07/22 01/07/22 allopurinoL [Zyloprim] 50 mg PO Q48H 01/07/22 01/07/22 amLODIPine [Norvasc] 10 mg PO DAILY 01/07/22 01/07/22 traZODone HCL [Desyrel] 100 mg PO HS PRN 01/07/22 01/07/22 Previous Rx's Medication Instructions Recorded Aspirin 81 mg PO DAILY #100 chew 10/14/20 Acetaminophen Tab [Tylenol] 650 mg PO Q6HR PRN tab 01/09/22 Insulin Aspart [NovoLOG Flexpen] See Protocol SQ ACHS #0 01/09/22 Ondansetron Odt [Zofran Odt] 4 mg PO Q8HR PRN #12 tab 03/24/22 Allergies Allergy/AdvReac Type Severity Reaction Status Date / Time hydrocodone [From [place]] Allergy Hallucinati Verified 06/20/22 18:09 ons/vomitin g Penicillins Allergy Anaphylaxis Verified 06/20/22 18:09 Sulfa (Sulfonamide Allergy Anaphylaxis Verified 06/20/22 18:09 Antibiotics) adhesive tape AdvReac Itching/swe Verified 06/20/22 18:09 lling cephalexin [From Keflex] AdvReac Unknown Verified 06/20/22 18:09 Childhood measles, mumps, and rubella AdvReac Rash/Hives Verified 06/20/22 18:09 vaccine shellfish derived [Shrimp] AdvReac Rash/Hives Verified 06/20/22 18:09 Wjeviyg-FNP-FeD Reductase AdvReac Unknown Verified 06/20/22 18:09 Inhibitor [Juaiwqx-Dax-Irx Reductase Inhibitor] Review of Systems ROS Statement: Those systems with pertinent positive or pertinent negative responses have been documented in the HPI. ROS Other: All systems not noted in ROS Statement are negative. Past Medical History Past Medical History: Asthma, Coronary Artery Disease (CAD), Heart Failure, CVA/TIA, Diabetes Mellitus, Eye Disorder, GERD/Reflux, Hyperlipidemia, Hypertension, Pneumonia, Renal Disease Additional Past Medical History / Comment(s): Pt tested covid+ 09/30/[address] [facility] ER. 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 Past Anesthesia/Blood Transfusion Reactions: Motion Sickness, Postoperative Nausea & Vomiting (PONV) Additional Past Anesthesia/Blood Transfusion Reaction / Comment(s): asthma attack during EGD. mom PONV Past Psychological History: Anxiety Smoking Status: Never smoker Past Alcohol Use History: None Reported Past Drug Use History: None Reported - Past Family History Father Family Medical History: Cancer, Diabetes Mellitus Additional Family Medical History / Comment(s): cancerous polyp, prostate cancer Mother Family Medical History: Hypertension Additional Family Medical History / Comment(s): Mother had irregular heartbeat General Exam Limitations: no limitations General appearance: alert, in no apparent distress Head exam: Present: atraumatic, normocephalic, normal inspection Eye exam: Present: normal appearance, PERRL, EOMI. Absent: scleral icterus, conjunctival injection, periorbital swelling ENT exam: Present: normal exam, mucous membranes moist Neck exam: Present: normal inspection. Absent: tenderness, meningismus, lymphadenopathy Respiratory exam: Present: respiratory distress, wheezes. Absent: rales, rhonchi, stridor Cardiovascular Exam: Present: regular rate, normal rhythm, normal heart sounds. Absent: systolic murmur, diastolic murmur, rubs, gallop, clicks GI/Abdominal exam: Present: soft, normal bowel sounds. Absent: distended, tenderness, guarding, rebound, rigid Extremities exam: Present: normal inspection, full ROM, normal capillary refill. Absent: tenderness, pedal edema, joint swelling, calf tenderness Back exam: Present: normal inspection Neurological exam: Present: alert, oriented X3, CN II-XII intact Psychiatric exam: Present: normal affect, normal mood Skin exam: Present: warm, dry, intact, normal color. Absent: rash Course Vital Signs 06/20/22 06/20/22 06/20/22 18:08 18:14 18:26 Temperature 98.3 F Pulse Rate 92 89 Respiratory 28 H 28 H Rate Blood Pressure 132/76 O2 Sat by Pulse 91 L Oximetry 06/20/22 18:53 Temperature Pulse Rate 95 Respiratory Rate Blood Pressure O2 Sat by Pulse Oximetry Medical Decision Making - Medical Decision Making Patient presents with asthma. X-ray read by me shows possible pneumonia. I sent blood cultures and started IV antibiotics. She is given breathing treatments and IV magnesium and IV steroids. She is not feeling much better on reevaluation. She will be admitted to the hospital. - Lab Data Result diagrams: 06/20/22 18:30 06/20/22 18:30 Lab Results 06/20/22 06/20/22 06/20/22 Range/Units 18:30 18:30 18:30 WBC 6.7 (3.8-10.6) k/uL RBC 4.21 (3.80-5.40) m/uL Hgb 12.5 (11.4-16.0) gm/dL Hct 37.5 (34.0-46.0) % MCV 89.1 (80.0-100.0) fL MCH 29.8 (25.0-35.0) pg MCHC 33.5 (31.0-37.0) g/dL RDW 12.8 (11.5-15.5) % Plt Count 179 (150-450) k/uL MPV 7.5 Neutrophils % 66 % Lymphocytes % 17 % Monocytes % 6 % Eosinophils % 10 % Basophils % 1 % Neutrophils # 4.4 (1.3-7.7) k/uL Lymphocytes # 1.1 (1.0-4.8) k/uL Monocytes # 0.4 (0-1.0) k/uL Eosinophils # 0.7 (0-0.7) k/uL Basophils # 0.0 (0-0.2) k/uL PT 9.9 (9.0-12.0) sec INR 0.9 (<1.2) APTT 21.1 L (22.0-30.0) sec Sodium 140 (137-145) mmol/L Potassium 4.7 (3.5-5.1) mmol/L Chloride 109 H (98-107) mmol/L Carbon Dioxide 22 (22-30) mmol/L Anion Gap 9 mmol/L BUN 42 H (7-17) mg/dL Creatinine 2.23 H (0.52-1.04) mg/dL Est GFR (CKD-EPI)AfAm 28 (>60 ml/min/1.73 sqM) Est GFR (CKD-EPI)NonAf 24 (>60 ml/min/1.73 sqM) Glucose 162 H (74-99) mg/dL Plasma Lactic Acid Ochoa (0.7-2.0) mmol/L Calcium 9.8 (8.4-10.2) mg/dL Magnesium 2.2 (1.6-2.3) mg/dL Total Bilirubin 0.4 (0.2-1.3) mg/dL AST 17 (14-36) U/L ALT 15 (4-34) U/L Alkaline Phosphatase 73 (38-126) U/L Total Protein 7.2 (6.3-8.2) g/dL Albumin 4.3 (3.5-5.0) g/dL 06/20/22 Range/Units 18:30 WBC (3.8-10.6) k/uL RBC (3.80-5.40) m/uL Hgb (11.4-16.0) gm/dL Hct (34.0-46.0) % MCV (80.0-100.0) fL MCH (25.0-35.0) pg MCHC (31.0-37.0) g/dL RDW (11.5-15.5) % Plt Count (150-450) k/uL MPV Neutrophils % % Lymphocytes % % Monocytes % % Eosinophils % % Basophils % % Neutrophils # (1.3-7.7) k/uL Lymphocytes # (1.0-4.8) k/uL Monocytes # (0-1.0) k/uL Eosinophils # (0-0.7) k/uL Basophils # (0-0.2) k/uL PT (9.0-12.0) sec INR (<1.2) APTT (22.0-30.0) sec Sodium (137-145) mmol/L Potassium (3.5-5.1) mmol/L Chloride (98-107) mmol/L Carbon Dioxide (22-30) mmol/L Anion Gap mmol/L BUN (7-17) mg/dL Creatinine (0.52-1.04) mg/dL Est GFR (CKD-EPI)AfAm (>60 ml/min/1.73 sqM) Est GFR (CKD-EPI)NonAf (>60 ml/min/1.73 sqM) Glucose (74-99) mg/dL Plasma Lactic Acid Ochoa 0.9 (0.7-2.0) mmol/L Calcium (8.4-10.2) mg/dL Magnesium (1.6-2.3) mg/dL Total Bilirubin (0.2-1.3) mg/dL AST (14-36) U/L ALT (4-34) U/L Alkaline Phosphatase (38-126) U/L Total Protein (6.3-8.2) g/dL Albumin (3.5-5.0) g/dL 06/20/22 19:31 Twelve-lead EKG shows ventricular rate 87 bpm, normal IN interval and QRS complexes, no ST elevation or depression, interpreted by me as normal sinus rhythm. Critical Care Time Critical Care Time: Yes (Initiation of IV magnesium) Total Critical Care Time: 35 Disposition Clinical Impression: Asthma with status asthmaticus Disposition: ADMITTED IP TO THIS [facility] Condition: Fair Is patient prescribed a controlled substance at d/c from ED?: No Referrals: Robbie Nieves MD [Primary Care Provider] - 1-2 days
[2022-06-20] MEDS ORDERED: traZODone HCL 100 MG TAB PO PRN (19:34)
[2022-06-20] MEDS: PRAVASTATIN SODIUM 20 MG TAB PO SCH (21:20)
[2022-06-20] MEDS: carvediloL 12.5 MG TAB PO SCH (21:20)
[2022-06-20] MEDS: CITALOPRAM HYDROBROMIDE 20 MG TAB PO SCH (21:20)
[2022-06-20] MEDS ORDERED: ALBUTEROL HFA INHALER INHALATION PRN (23:48)
[2022-06-21] MEDS: ALBUTEROL HFA INHALER INHALATION PRN ×3 (00:44→11:30)
[2022-06-21] MEDS: SYMBICORT 80-4.5 MCG INHALER INHALATION SCH ×2 (07:53→21:33)
[2022-06-21] MEDS: IPRATROPIUM 0.5 MG/2.5 ML NEBU INHALATION SCH ×4 (07:53→21:32)
[2022-06-21] MEDS ORDERED: NON FORMULARY DRUG (Fluticasone/Umeclidin/Vilanter [Trelegy Ellipta 100-62.5-25] 1 EACH Bl INHALATION SCH (08:00)
[2022-06-21] MEDS: CHLORTHALIDONE 25 MG TAB PO SCH (08:32)
[2022-06-21] MEDS: amLODIPine 10 MG TAB PO SCH (08:33)
[2022-06-21] MEDS: allopurinoL 300 MG TAB PO SCH (08:33)
[2022-06-21] MEDS: MONTELUKAST 10 MG TAB PO SCH (08:33)
[2022-06-21] MEDS: carvediloL 12.5 MG TAB PO SCH ×2 (08:33→18:56)
[2022-06-21] MEDS: LOSARTAN 50 MG TAB PO SCH (08:34)
[2022-06-21] MEDS: ASPIRIN 81 MG PO SCH (08:34)
[2022-06-21] MEDS: LORATADINE 10 MG TAB PO SCH (08:34)
[2022-06-21] MEDS: FAMOTIDINE 20 MG TAB PO SCH (08:34)
[2022-06-21] MEDS ORDERED: allopurinoL 100 MG TAB PO SCH (09:00)
[2022-06-21] MEDS: ISOSORBIDE MONONITRATE 10 MG TAB PO SCH (09:54)
[2022-06-21] MEDS: FLUTICASONE 50MCG/SPRAY NASAL 16GM EA NOSTRIL SCH (09:54)
[2022-06-21 21:01] LABS: Glucose,Whole Blood 191 mg/dL (70-110)
[2022-06-21] MEDS: PRAVASTATIN SODIUM 20 MG TAB PO SCH (22:09)
[2022-06-21] MEDS: CITALOPRAM HYDROBROMIDE 20 MG TAB PO SCH (22:09)
--- NOTE | 2022-06-22 05:34 | HP ---
HISTORY AND PHYSICAL CHIEF COMPLAINT: Difficulty breathing. HISTORY OF PRESENT ILLNESS: This is another admission for this 57-year-old female, who is in the hospital last year after developing a significant stroke. She has diabetes. She was having difficulty at home and very quickly became short of breath and did not respond to her usual treatments. She came to the emergency room, where she was admitted with status asthmaticus. REVIEW OF SYSTEMS: She denies any focal neurologic problems, chest pain, cough, hemoptysis, sputum production, fever, chills, etc. Past medical history, family history and personal and social histories are extensive. She has had multiple problems, but her biggest one is related to her diabetes. Numbers have been improved of late. MEDICATIONS: She is on, 1. Protonix. 2. Loratadine. 3. Zolpidem. 4. Xanax. 5. Ozempic. 6. Amlodipine. 7. Pravastatin. 8. Carvedilol. 9. Montelukast. 10.Albuterol MDI. 11.Cozaar. 12.Isosorbide mononitrate. 13.Pepcid. 14.Vitamin D. She does not smoke or drink. PHYSICAL EXAMINATION: VITAL SIGNS: Blood pressure is 125/70 with a pulse of 81, respirations of 33, and she is afebrile. GENERAL: She appeared to be overweight, slightly pale and slightly short of breath, but in no acute distress. Head, ears, eyes, nose, mouth and throat were normal. CHEST: Demonstrated decreased breath sounds with scattered rales posteriorly. CARDIAC: Normal. ABDOMEN: Soft and protuberant. EXTREMITIES: Normal. NEUROLOGICAL: She had some weakness on the right, but it is much improved over the last year as is her speech. ASSESSMENT: She is admitted to the hospital with diagnoses of, 1. Status asthmaticus. 2. History of cerebrovascular accident. 3. Diabetes. PLAN: 1. Bedrest. 2. IV fluids. 3. Updrafts. 4. IV inhaled steroids. MMODL / IJN: [id number] /
--- NOTE | 2022-06-22 05:43 | PN ---
PROGRESS NOTE DATE OF SERVICE: 06/21/2022 CHIEF COMPLAINT: Shortness of breath and status asthmaticus. HISTORY OF PRESENT ILLNESS: This lady is breathing slightly more easily. She has a slight headache. REVIEW OF SYSTEMS: Otherwise normal. PHYSICAL EXAMINATION: CHEST: Quite clear at this time with only occasional rales. CARDIAC: Normal. ABDOMEN: Soft and nontender. IMPRESSION: 1. Status asthmaticus. 2. History of left-sided cerebrovascular accident. 3. History of poorly controlled diabetes. PLAN: Move to the floor and continue with IV fluids, updrafts, and IV and inhaled steroids. MMODL / IJN: [id number] /
[2022-06-22 06:17] LABS: Glucose,Whole Blood 119 mg/dL (70-110)
[2022-06-22] MEDS: carvediloL 12.5 MG TAB PO SCH ×2 (06:39→15:32)
[2022-06-22] MEDS: MONTELUKAST 10 MG TAB PO SCH (08:48)
[2022-06-22] MEDS: allopurinoL 300 MG TAB PO SCH (08:48)
[2022-06-22] MEDS: CHLORTHALIDONE 25 MG TAB PO SCH (08:48)
[2022-06-22] MEDS: FAMOTIDINE 20 MG TAB PO SCH (08:48)
[2022-06-22] MEDS: LORATADINE 10 MG TAB PO SCH (08:48)
[2022-06-22] MEDS: LOSARTAN 50 MG TAB PO SCH (08:48)
[2022-06-22] MEDS: amLODIPine 10 MG TAB PO SCH (08:48)
[2022-06-22] MEDS: ASPIRIN 81 MG PO SCH (08:48)
[2022-06-22] MEDS: ISOSORBIDE MONONITRATE 10 MG TAB PO SCH (08:48)
[2022-06-22] MEDS: IPRATROPIUM-ALBUTEROL 3 ML NEB INHALATION PRN ×2 (08:55→20:27)
[2022-06-22] MEDS: IPRATROPIUM 0.5 MG/2.5 ML NEBU INHALATION SCH ×4 (08:56→20:30)
[2022-06-22] MEDS: SYMBICORT 80-4.5 MCG INHALER INHALATION SCH ×2 (08:56→20:27)
[2022-06-22] MEDS: FLUTICASONE 50MCG/SPRAY NASAL 16GM EA NOSTRIL SCH (10:09)
[2022-06-22 11:59] LABS: Glucose,Whole Blood 140 mg/dL (70-110)
--- NOTE | 2022-06-22 14:35 | CDI ---
Documentation Clarification Form Date: 06/22/2022 02:22:32 PM From: Hilda SolomonBacaKANWAL rand, CCDS Admit Date: 06/20/2022 07:32:00 PM Patient Name: Alexandra Taylor Visit Number: [id number] Discharge Date: ATTENTION: The Clinical Documentation Specialists (CDI) and [facility] Coding Staff appreciate your assistance in clarifying documentation. Please respond to the clarification below the line at the bottom and electronically sign. The CDI & [facility] Coding staff will review the response and follow-up if needed. Please note: Queries are made part of the Legal Health Record. If you have any questions, please contact the author of this message via ITS. Dr. Robbie Nieves: Status Asthmaticus is the 06/21 History & Physical Assessment. Asthma is documented without further specificity. Pulmonary has not been consulted. Additional clarification regarding the type of Asthma is requested. History/risk factors per the 06/21 H/P: CVA, DM. History per the 06/20 ED Note: IDDM II, Diabetic neuropathy, Hyperlipidemia, Anxiety, Hypertensive Heart & CKD stage 3, CAD, GERD and non-smoker. Clinical Indicators: Presented to the ED 06/20 with SOB and history of Asthma on home breathing treatments with no relief. Recently has been on antibiotics and steroids. Home meds include INH Albuterol QID/prn, Ozempic, INH Trelegy Ellipta Daily, Singulair Daily, Nasacort Daily. Admit with Asthma with Status Asthmaticus. 06/20 VS: T 98.3, P 92, R 28 (sob), BP 132/76, PO 91 RA - 94 3Lnc, BMI: 38.4 06/20 LAB: APTT 21.1; Chloride 109, CO2 22, BUN 42, Creatinine 2.23, Glucose 162. Influenza A/B, RSV and COVID all negative. 06/20 CXR: Right lower lobe airspace opacities not definitely seen on prior exams. Correlate for pneumonia. Treatment 06/20: Blood culture, O2, INH Ventolin x1, INH Atrovent x1, IV Solumedrol 125 mg x1, IV Mag Sulfate/Dextrose 100 mls @ 100 mls/hr x1, Brethine 0.25 mg x1, IV Rocephin 50 mls @ 100 mls/hr x1 Pulmonary not consulted. Please clarify the type and severity of Asthma, if known: [ ] Extrinsic asthma [ ] with exacerbation [ ] with status asthmaticus [ ] Intrinsic asthma [ ] with exacerbation [ ] with status asthmaticus [ ] Mild intermittent asthma [ ] with exacerbation [ ] with status asthmaticus [ ] Mild persistent asthma [ ] with exacerbation [ ] with status asthmaticus [ ] Moderate persistent asthma [ ] with exacerbation [ ] with status asthmaticus [ ] Severe persistent asthma [ ] with exacerbation [ ] with status asthmaticus [ ] Other, please specify: [ ] Unable to determine (Template Last Revised: September 2020) MTDD
[2022-06-22] MEDS: GABAPENTIN 300 MG CAP PO PRN ×2 (15:33→20:49)
[2022-06-22] MEDS: PRAVASTATIN SODIUM 20 MG TAB PO SCH (20:25)
[2022-06-22] MEDS: CITALOPRAM HYDROBROMIDE 20 MG TAB PO SCH (20:25)
--- NOTE | 2022-06-23 02:22 | PN ---
PROGRESS NOTE DATE OF SERVICE: 06/22/2022 CHIEF COMPLAINT: Status asthmaticus. HISTORY OF PRESENT ILLNESS: This lady is doing better. She probably does not have pneumonia. Breathing is improved. She is able to move about without oxygen. She has no chest pain. PHYSICAL EXAMINATION: CHEST: Clear. There is very little wheezing. CARDIAC: Normal. ABDOMEN: Soft and nontender. IMPRESSION: 1. Status asthmaticus. 2. Previous cerebrovascular accident. 3. Diabetes. PLAN: Progress activity and if she remains stable, she can likely go home tomorrow. MMODL / IJN: [id number] /
[2022-06-23] MEDS: carvediloL 12.5 MG TAB PO SCH (05:57)
[2022-06-23] MEDS: IPRATROPIUM 0.5 MG/2.5 ML NEBU INHALATION SCH ×2 (08:40→12:04)
[2022-06-23] MEDS: SYMBICORT 80-4.5 MCG INHALER INHALATION SCH (08:41)
[2022-06-23] MEDS: ISOSORBIDE MONONITRATE 10 MG TAB PO SCH (09:12)
[2022-06-23] MEDS: ASPIRIN 81 MG PO SCH (09:12)
[2022-06-23] MEDS: CHLORTHALIDONE 25 MG TAB PO SCH (09:12)
[2022-06-23] MEDS: FAMOTIDINE 20 MG TAB PO SCH (09:12)
[2022-06-23] MEDS: amLODIPine 10 MG TAB PO SCH (09:12)
[2022-06-23] MEDS: allopurinoL 300 MG TAB PO SCH (09:12)
[2022-06-23] MEDS: LORATADINE 10 MG TAB PO SCH (09:12)
[2022-06-23] MEDS: FLUTICASONE 50MCG/SPRAY NASAL 16GM EA NOSTRIL SCH (09:12)
[2022-06-23] MEDS: LOSARTAN 50 MG TAB PO SCH (09:12)
[2022-06-23] MEDS: MONTELUKAST 10 MG TAB PO SCH (09:12)
[2022-06-23 14:12] VITALS: BP 150/77; PULSE 84; RESP 20; TEMP 98.1
--- NOTE | 2022-06-24 03:32 | DS ---
DISCHARGE SUMMARY CHIEF COMPLAINT: Difficulty breathing. HISTORY OF PRESENT ILLNESS AND PHYSICAL EXAMINATION: Details of this lady's history and physical can be found in the initial workup. LABORATORY STUDIES: While she was in the hospital, she had laboratory studies, details of which can be found in the laboratory section of her chart. COURSE IN THE HOSPITAL: After admission, she was placed on bedrest, started on intravenous fluids and updrafts as well as IV and inhaled steroids. Chest cleared quite well and she is doing well enough to go home on the . She will follow up in a few days in the office. FINAL DIAGNOSES: 1. Shortness of breath. 2. Status asthmaticus. 3. Previous cerebrovascular accident with hemiparesis. 4. Diabetes. OPERATIONS: None. CONSULTATIONS: None. She is improved. TAMRA / BOYD: [id number] /
[2022-06-26] MEDS ORDERED: PATIENT'S OWN (Semaglutide [Ozempic] 0.25 MG/0.2 ML Each) SQ SCH (09:00)
== END 2022-06-23 15:58 | disposition home or self-care (01) | DRG 202 ==
LOC: EC 18:02 → 4SSUR 19:32
PROVIDERS: ADMIT Family Medicine; ATTEND Family Medicine
DX: J45.902 Unspecified asthma with status asthmaticus (principal); I13.0 Hypertensive heart and chronic kidney disease with heart failure and stage 1 through stage 4 chronic kidney disease, or unspecified chronic kidney disease; E11.65 Type 2 diabetes mellitus with hyperglycemia; E11.40 Type 2 diabetes mellitus with diabetic neuropathy, unspecified; E11.22 Type 2 diabetes mellitus with diabetic chronic kidney disease; N18.30 Chronic kidney disease, stage 3 unspecified; I50.9 Heart failure, unspecified; K44.9 Diaphragmatic hernia without obstruction or gangrene; F41.9 Anxiety disorder, unspecified; D50.9 Iron deficiency anemia, unspecified; I25.10 Atherosclerotic heart disease of native coronary artery without angina pectoris; E78.5 Hyperlipidemia, unspecified; E55.9 Vitamin D deficiency, unspecified; H54.7 Unspecified visual loss; Z20.822 Contact with and (suspected) exposure to COVID-19; Z86.16 Personal history of COVID-19; Z86.73 Personal history of transient ischemic attack (TIA), and cerebral infarction without residual deficits; Z79.4 Long term (current) use of insulin; Z87.11 Personal history of peptic ulcer disease; Z86.14 Personal history of Methicillin resistant Staphylococcus aureus infection; Z87.01 Personal history of pneumonia (recurrent); Z79.82 Long term (current) use of aspirin; Z79.51 Long term (current) use of inhaled steroids; Z88.2 Allergy status to sulfonamides; Z88.0 Allergy status to penicillin; Z88.1 Allergy status to other antibiotic agents; Z88.5 Allergy status to narcotic agent; Z88.8 Allergy status to other drugs, medicaments and biological substances
CPT/HCPCS: 36415; 71046; 80053; 83605; 83735; 83880; 84484; 85025; 85610; 85730; 87040; 87636; 93005; 94640; 94760; 96365; 96367; 96372; 96375; 99291